=== PATIENT | male | born 1980 | race Caucasian/White ===

== ENCOUNTER 2023-07-16 15:04 | Inpatient (IN) | payer OTHER, SELFPAY ==
[2023-07-16 15:09] VITALS: BP 148/116; PULSE 114; RESP 22; TEMP 36.8; O2SAT 99; BMI 24.2
[2023-07-16 15:41] LABS: Hematocrit 53.9 % (42.0-54.0); Mean Corpuscular HGB Conc 33.4 g/dL (29.9-35.2); Mean Corpuscular Hemoglobin 30.9 pg (25.9-34.0); Mean Corpuscular Volume 92.5 fL (80.0-94.0); Mean Platelet Volume 10.5 fL (9.5-13.5); Platelet Count 523 10^3/uL (150-450); Red Blood Count 5.83 10^6/uL (4.70-6.10); Red Cell Distribution Width 12.7 % (11.0-15.0); White Blood Count 27.8 10^3/uL (4.0-11.0)
--- NOTE | 2023-07-16 15:42 | ED_ITS ---
HPI - Abdominal Pain General Chief Complaint: Abdominal Pain Stated Complaint: aBDOMINAL pAIN Time Seen by Provider: 07/16/23 15:13 Source: patient Mode of arrival: Wheelchair History of Present Illness HPI narrative: patient is a 42-year-old male who presents to the emergency department for two day history of nausea and vomiting associated with right mid abdominal pain. He states he has a history of gastritis but stopped taking his omeprazole and Zofran because it was a potential interaction with his psychiatric medications. He has not had any fevers, upper respiratory symptoms or diarrhea. He denies any recent antibiotics or travel. No sick contacts in the home. He has not had any urinary symptoms. No previous abdominal surgeries. Related Data Home Medications Medication Instructions Recorded Confirmed fluoxetine 40 mg capsule 60 mg PO DAILY 07/16/23 07/16/23 olanzapine 2.5 mg tablet 2.5 mg PO DAILY 07/16/23 07/16/23 omeprazole 20 mg capsule,delayed 20 mg PO DAILY 07/16/23 07/16/23 release Allergies Allergy/AdvReac Type Severity Reaction Status Date / Time No Known Drug Allergies Allergy Verified 07/16/23 15:14 Review of Systems ROS Constitutional Denies: fever or chills Cardiovascular Denies: chest pain Respiratory Denies: shortness of breath or cough Gastrointestinal Reports: abdominal pain, nausea and vomiting; Denies: diarrhea Genitourinary Denies: painful urination Musculoskeletal Denies: back pain Integumentary/Breast Denies: rash Neurological Denies: headache Hematologic/Lymphatic Denies: easy bruising Exam Narrative Exam Narrative: Gen.: Awake, alert, in no distress Head: Normocephalic, atraumatic ENT: Moist mucous membranes Respiratory: No respiratory distress, lungs clear bilaterally Cardio: Regular rate and rhythm Gastrointestinal: Abdomen is soft, nondistended and minimally tender in the right midabdomen; no guarding or rebound, no McBurney's point tenderness Extremities: Moves extremities equally Psych: Normal mood and affect Neuro: No focal neuro deficit Skin: Warm, dry, intact Constitutional Vital Signs, click to edit/add: Last Vital Signs Temp 98.3 F 07/16/23 15:09 Pulse 114 H 07/16/23 15:09 Resp 22 07/16/23 15:09 BP 148/116 H 07/16/23 15:09 Pulse Ox 99 07/16/23 15:09 O2 Del Method Room Air 07/16/23 15:09 Course Vital Signs Vital signs: Vital Signs Temperature 98.3 F 07/16/23 15:09 Pulse Rate 114 H 07/16/23 15:09 Respiratory Rate 22 07/16/23 15:09 Blood Pressure 148/116 H 07/16/23 15:09 Pulse Oximetry 99 07/16/23 15:09 Oxygen Delivery Method Room Air 07/16/23 15:09 Temperature 98.3 F 07/16/23 15:09 Pulse Rate 114 H 07/16/23 15:09 Respiratory Rate 22 07/16/23 15:09 Blood Pressure 148/116 H 07/16/23 15:09 Pulse Oximetry 99 07/16/23 15:09 Oxygen Delivery Method Room Air 07/16/23 15:09 MDM - Abdominal Pain MDM Narrative Medical decision making narrative: patient was given 2 L of IV fluids, lab studies show significantt leukocytosis, elevated lactic acid, acute kidney injury with creatinine 3.39 and elevated bilirubin at 1.7 with minimal elevation of alkaline phosphatase. Blood cultures were ordered, he was also sent for CT of the abdomen and pelvis without contrast as we could not inject IV contrast due to acute kidney injury. This CT shows the patient has suspected small bowel intussusception, I discussed this result with Dr. Cantu ([id number]) for general surgery in reviewed the patient's labs. He is willing to be a consult for the patient and feels comfortable managing his CT findings at this facility. I discussed the case with Dr. Rand ([id number]) who is accepting the admission for [facility]. Patient was reevaluated by attending physician prior to admission, he understands his CT findings and lab findings. He had no episodes of emesis in the Emergency Room. Stable at time of admission. Medical Records Attestation: I reviewed the patient's medical records. Lab Data Attestation: I reviewed the patient's lab results. Labs: Lab Results 07/16/23 Range/Units 15:34 WBC 27.8 H (4.0-11.0) 10^3/uL RBC 5.83 (4.70-6.10) 10^6/uL Hgb 18.0 (14.0-18.0) g/dL Hct 53.9 (42.0-54.0) % MCV 92.5 (80.0-94.0) fL MCH 30.9 (25.9-34.0) pg MCHC 33.4 (29.9-35.2) g/dL RDW 12.7 (11.0-15.0) % Plt Count 523 H (150-450) 10^3/uL MPV 10.5 (9.5-13.5) fL Seg Neuts % (Manual) 88.0 Lymphocytes % (Manual) 4.0 L (20.5-60.0) % Monocytes % (Manual) 8.0 (1.7-12.0) % Eosinophils % (Manual) 0.0 L (0.9-7.0) % Basophils % (Manual) 0.0 L (0.2-2.0) % Neutrophils # (Manual) 24.46 H (1.4-6.5) 10^3/uL Lymphocytes # (Manual) 1.11 L (1.20-3.80) 10^3/uL Monocytes # (Manual) 2.22 H (0.30-0.80) 10^3/uL Eosinophils # (Manual) 0.00 (0.00-0.70) 10^3/uL Basophils # (Manual) 0.00 (0.00-0.10) 10^3/uL Sodium 145 (136-145) mmol/L Potassium 4.4 (3.5-5.1) mmol/L Chloride 107 (98-107) mmol/L Carbon Dioxide 23.7 (21.0-32.0) mmol/L Anion Gap 18.7 BUN 49.0 H (7.0-18.0) mg/dL Creatinine 3.39 H (0.70-1.30) mg/dL Est GFR ( Amer) 24 L (>=60) Est GFR (Non-Af Amer) 20 L (>=60) BUN/Creatinine Ratio 14.5 Glucose 148 H (74-106) mg/dL Lactate 2.6 H* (0.4-2.0) mmol/L Calcium 12.3 H (8.5-10.1) mg/dL Total Bilirubin 1.7 H (0.2-1.0) mg/dL AST 25 (15-37) U/L ALT 28 (16-63) U/L Alkaline Phosphatase 121 H (46-116) U/L Total Protein 10.6 H (6.4-8.2) g/dL Albumin 5.8 H (3.4-5.0) g/dL Globulin 4.8 g/dL Albumin/Globulin Ratio 1.2 Lipase 53.0 L (73.0-393.0) U/L Imaging Data CT scan - abdomen: Attestation: I have reviewed the pertinent imaging results. Radiologist's impression: Procedure: CT abdomen pelvis wo con EXAMINATION: CT abdomen pelvis wo con, 07/16/2023 1:53 PM PDT HISTORY: Abdominal pain, vomiting COMPARISON: MRI abdomen 07/17/2022. CT abdomen and pelvis 04/01/2022. TECHNIQUE: CT scan of the abdomen and pelvis was performed without IV contrast. CT dose reduction technique was used, including Automated Exposure Control. FINDINGS: Lung: No significant finding. Liver: No significant finding. Gallbladder: No significant finding. Spleen: Granulomatous Pancreas: No significant finding. Adrenal glands: No significant finding. Kidneys, ureters and bladder: Simple right renal cyst. No renal/urinary tract calculi. Circumferential bladder wall thickening. Simple left renal cyst. Bowel: Normal appendix. No evidence of bowel obstruction. Distal jejunal versus proximal ileum intussusception measuring approximately 6 cm in length. No evidence of bowel obstruction. No definitive measurable lead point mass. No free fluid in the abdomen. No evidence of pneumoperitoneum. Peritoneum/retroperitoneum: As above. Lymph nodes: No significant finding. Vessels: No significant finding. Body wall: Tiny fat-containing umbilical hernia. Reproductive: No significant finding. Bones: No significant finding. IMPRESSION: Small bowel intussusception in the pelvis involving approximately a 6 cm segment of bowel. No evidence of bowel obstruction, free fluid or lead point mass. Bladder wall thickening, correlate for cystitis. Electronically authenticated by: PARUL MUIR Date: 07/16/2023 17:23 Discharge Plan Discharge Chief Complaint: Abdominal Pain Clinical Impression: Acute kidney injury, Nausea and vomiting, Abdominal pain, Intussusception Patient Disposition: Admitted As Inpatient Time of Disposition Decision: 17:41 Condition: Good
[2023-07-16] MEDS: PROMETHAZINE HCL 25 MG/ML VIAL 12.5 MG IV (15:54)
[2023-07-16] MEDS: 0.9 % SODIUM CHLORIDE 1,000 ML 999 ML IV (15:54)
[2023-07-16] MEDS: FAMOTIDINE/PF 20 MG/2 ML VIAL IV (15:54)
[2023-07-16 15:56] LABS: Alanine Aminotransferase 28 U/L (16-63); Albumin Globulin Ratio 1.2; Albumin Level 5.8 g/dL (3.4-5.0); Alkaline Phosphatase 121 U/L (46-116); Anion Gap 18.7; Aspartate Amino Transferase 25 U/L (15-37); BUN Creatinine Ratio 14.5; Bilirubin Total 1.7 mg/dL (0.2-1.0); Calcium 12.3 mg/dL (8.5-10.1); Carbon Dioxide 23.7 mmol/L (21.0-32.0); Chloride 107 mmol/L (98-107); Estimated GFR (African America 24 (>=60); Estimated GFR (Non-African Ame 20 (>=60); Globulin 4.8 g/dL; Glucose 148 mg/dL (74-106); Potassium 4.4 mmol/L (3.5-5.1); Sodium 145 mmol/L (136-145); Total Protein 10.6 g/dL (6.4-8.2)
[2023-07-16 16:02] LABS: Lymphocytes Absolute Manual 1.11 10^3/uL (1.20-3.80); Monocytes Absolute Manual 2.22 10^3/uL (0.30-0.80); Segmented Neut Absolute Manual 24.46 10^3/uL (1.4-6.5)
[2023-07-16 16:03] LABS: Lactate/Lactic Acid 2.6 mmol/L (0.4-2.0)
--- NOTE | 2023-07-16 16:14 | CT_ITS ---
[facility] [id number] Patient Name: GERALDINE RICCI MRN: [id number] date: 1980 Sex: M Assigned Patient Location: ER Current Patient Location: ER Accession/Order Number: [id number] Exam Date: 07/16/2023 16:53 Report Date: 07/16/2023 17:23 At the request of: JULIAN GALLAGHER Procedure: CT abdomen pelvis wo con EXAMINATION: CT abdomen pelvis wo con, 07/16/2023 1:53 PM PDT HISTORY: Abdominal pain, vomiting COMPARISON: MRI abdomen 07/17/2022. CT abdomen and pelvis 04/01/2022. TECHNIQUE: CT scan of the abdomen and pelvis was performed without IV contrast. CT dose reduction technique was used, including Automated Exposure Control. FINDINGS: Lung: No significant finding. Liver: No significant finding. Gallbladder: No significant finding. Spleen: Granulomatous Pancreas: No significant finding. Adrenal glands: No significant finding. Kidneys, ureters and bladder: Simple right renal cyst. No renal/urinary tract calculi. Circumferential bladder wall thickening. Simple left renal cyst. Bowel: Normal appendix. No evidence of bowel obstruction. Distal jejunal versus proximal ileum intussusception measuring approximately 6 cm in length. No evidence of bowel obstruction. No definitive measurable lead point mass. No free fluid in the abdomen. No evidence of pneumoperitoneum. Peritoneum/retroperitoneum: As above. Lymph nodes: No significant finding. Vessels: No significant finding. Body wall: Tiny fat-containing umbilical hernia. Reproductive: No significant finding. Bones: No significant finding. CT/CT abdomen pelvis wo con IMPRESSION: Small bowel intussusception in the pelvis involving approximately a 6 cm segment of bowel. No evidence of bowel obstruction, free fluid or lead point mass. Bladder wall thickening, correlate for cystitis. Electronically authenticated by: PARUL MUIR Date: 07/16/2023 17:23
[2023-07-16] MEDS: 0.9 % SODIUM CHLORIDE 1,000 ML 1000 ML IV (17:47)
[2023-07-16] MEDS: ONDANSETRON PF 4 MG/2 ML VIAL IV (18:15)
[2023-07-16 19:03] LABS: Lactate/Lactic Acid 1.4 mmol/L (0.4-2.0)
[2023-07-16] MEDS: LACTATED RINGER'S SOLUTION 1,000 ML 125 ML IV (20:58)
[2023-07-16 22:00] VITALS: BP 159/87; PULSE 76; RESP 18; TEMP 36.9; O2SAT 97
[2023-07-17] VITALS: BP 159/87; PULSE 76; RESP 18; TEMP 36.9; O2SAT 97; BMI 24.5
[2023-07-17] MEDS: ONDANSETRON PF 4 MG/2 ML VIAL IV (00:02)
[2023-07-17] MEDS: ACETAMINOPHEN 325 MG TABLET 650 MG PO (01:15)
[2023-07-17 02:04] LABS: Bilirubin Urine SMALL (NEGATIVE); Blood Urine NEGATIVE (NEGATIVE); Clarity Urine CLEAR (CLEAR); Color Urine YELLOW (YELLOW); Glucose Urine UA NEGATIVE (NEGATIVE); Ketones Urine TRACE mg/dL (NEGATIVE); Leukocyte Esterase Urine NEGATIVE (NEGATIVE); Nitrite Urine NEGATIVE (NEGATIVE); Protein Urine 30 mg/dL (NEG/TRACE); Specific Gravity Urine >=1.030 (1.005-1.025); Urobilinogen Urine 0.2 EU/dL (0.2-1.0)
[2023-07-17 02:05] LABS: Urine Microscopic Indicated YES
[2023-07-17 02:13] LABS: Bacteria Urine SMALL #/HPF (NONE SEEN); Crystals Seen? None Seen #/HPF (None Seen); Mucus Urine NONE SEEN (NONE SEEN); Squamous Epithelial Cell Urine RARE #/LPF (NONE/RARE)
[2023-07-17 02:14] LABS: Cast Seen? SEEN #/LPF (NONE SEEN); Hyaline Casts Urine MODERATE; Urine Culture Indicated YES; Waxy Casts Urine MODERATE
[2023-07-17 02:16] LABS: Amphetamine Screen Urine NEGATIVE (NEGATIVE); Barbiturates Screen Urine NEGATIVE (NEGATIVE); Benzodiazepines Screen Urine POSITIVE (NEGATIVE); Buprenorphine Screen Urine NEGATIVE (NEGATIVE); Cannabinoid Screen Urine POSITIVE (NEGATIVE); Cocaine Screen Urine NEGATIVE (NEGATIVE); Methadone Screen Urine NEGATIVE (NEGATIVE); Methamphetamines Screen Urine NEGATIVE (NEGATIVE); Opiate Screen Urine NEGATIVE (NEGATIVE); Oxycodone Screen Urine NEGATIVE (NEGATIVE); Phencyclidine Screen Urine NEGATIVE (NEGATIVE); Tricyclic Antidepressant Urine NEGATIVE (NEGATIVE)
[2023-07-17] MEDS: LACTATED RINGER'S SOLUTION 1,000 ML 125 ML IV (04:56)
[2023-07-17 05:04] VITALS: BP 178/112
[2023-07-17] MEDS: HYDRALAZINE HCL 20 MG/ML VIAL 10 MG IVP (05:04)
[2023-07-17 05:08] VITALS: BP 178/108; PULSE 59; RESP 18; TEMP 36.3; O2SAT 98
[2023-07-17 05:39] LABS: Basophils Absolute Auto 0.1 10^3/uL (0.0-0.1); Basophils Percent Auto 0.2 % (0.2-2.0); Hematocrit 47.2 % (42.0-54.0); Hemoglobin 14.9 g/dL (14.0-18.0); Immature Granulocytes Abs Auto 0.17 10^3/uL (0.00-0.03); Immature Granulocytes Pct Auto 0.8 % (0.0-0.5); Lymphocytes Absolute Auto 1.6 10^3/uL (1.2-3.8); Lymphocytes Percent Auto 7.3 % (20.5-60.0); Mean Corpuscular HGB Conc 31.6 g/dL (29.9-35.2); Mean Corpuscular Volume 98.1 fL (80.0-94.0); Mean Platelet Volume 11.2 fL (9.5-13.5); Monocytes Absolute Auto 1.9 10^3/uL (0.3-0.8); Monocytes Percent Auto 8.5 % (1.7-12.0); Neutrophils Absolute Auto 18.3 10^3/uL (1.4-6.5); Neutrophils Percent Auto 83.2 % (43.0-75.0); Platelet Count 348 10^3/uL (150-450); Red Blood Count 4.81 10^6/uL (4.70-6.10); Red Cell Distribution Width 12.7 % (11.0-15.0)
[2023-07-17 06:07] LABS: Alanine Aminotransferase 24 U/L (16-63); Albumin Globulin Ratio 1.1; Albumin Level 4.2 g/dL (3.4-5.0); Alkaline Phosphatase 85 U/L (46-116); Anion Gap 18.6; Aspartate Amino Transferase 24 U/L (15-37); Bilirubin Total 1.6 mg/dL (0.2-1.0); Calcium 9.4 mg/dL (8.5-10.1); Carbon Dioxide 21.4 mmol/L (21.0-32.0); Chloride 111 mmol/L (98-107); Estimated GFR (African America 43 (>=60); Estimated GFR (Non-African Ame 36 (>=60); Globulin 3.7 g/dL; Glucose 110 mg/dL (74-106); Sodium 147 mmol/L (136-145); Total Protein 7.9 g/dL (6.4-8.2)
[2023-07-17] MEDS: SODIUM CHLORIDE 0.45 % 1,000 ML 100 ML IV ×2 (08:56→18:52)
[2023-07-17] MEDS: AMLODIPINE BESYLATE 5 MG TABLET 10 MG PO (08:56)
[2023-07-17] MEDS: PANTOPRAZOLE SODIUM 40 MG VIAL IV (08:56)
--- NOTE | 2023-07-17 11:05 | P.HP_ITS ---
H&P: HPI History of Present Illness Chief complaint: Intractable nausea/vomiting Narrative: 42 y o male presents with sudden onset of nausea,vomiting along with mid epigastric abdominal discomfort x 3 days. Nausea/vomiting was so severe that he could not eat/drink anything for three days. He denies fever, chills, urinary complaints, cough, SOB. He reports he is not moving his bowels like usual and that he feels bloated and that he can't pass gas. His last BM was yesterday before coming to ED. He feels better than last night and has not thrown up since admission. He was asking to eat something. Review of Systems ROS Status of ROS 10 or more systems reviewed and unremarkable except as noted in history and below [facility] Medical History Family History Father Family history of CHF (congestive heart failure) Family history of hypertension Family history of myocardial infarction Family history of stroke Grandfather Family history of cancer Family history of myocardial infarction Family history of stroke Uncle Family history of cancer Grandmother Family history of diabetes mellitus Social History Within the past year, how often did you have a drink containing alcohol: never Score interpretation: A score less than 4 is consistent with normal alcohol consumption. Smoking status: Current every day smoker Do you use any of these nicotine containing products: vaping products Non-prescribed substance use: cannabis (any form) Meds Home Medications and Allergies Home Medications Medication Instructions Recorded Confirmed Type fluoxetine 40 mg capsule 60 mg PO BEDTIME 07/16/23 07/17/23 History olanzapine 2.5 mg tablet 2.5 mg PO BEDTIME 07/16/23 07/17/23 History omeprazole 20 mg capsule,delayed 20 mg PO DAILY 07/16/23 07/17/23 History release Allergies Allergy/AdvReac Type Severity Reaction Status Date / Time No Known Drug Allergies Allergy Verified 07/17/23 06:23 Exam Constitutional Vital Signs, click to edit/add: Last Vital Signs Temp 97.4 F L 07/17/23 05:08 Pulse 59 L 07/17/23 05:08 Resp 18 07/17/23 05:08 BP 178/108 H 07/17/23 05:08 Pulse Ox 98 07/17/23 05:08 O2 Del Method Room Air 07/17/23 05:08 Documenting provider has reviewed patient's vital signs: yes Common normals: no apparent distress and oriented x3 General appearance: cooperative and lethargic HENMT Common normals: normocephalic and head/scalp atraumatic Head and scalp: normocephalic and atraumatic Eye Common normals: conjunctivae normal and no scleral icterus Conjunctiva: conjunctiva(e) normal Respiratory Common normals: normal respiratory effort and clear to auscultation bilaterally Effort & inspection: able to speak in complete sentences Auscultation: clear to auscultation bilaterally Cardio Common normals: regular rate, S1 normal heart sound and S2 normal heart sound Rate: regular rate Heart sounds: S1 normal and S2 normal GI Common normals: Normal to inspection, nondistended, normoactive bowel sounds present, soft to palpation, non-tender and no hepatosplenomegaly Palpation: soft and no hepatosplenomegaly Extremity Common normals: no clubbing, cyanosis or edema Neuro Common normals: oriented x3, moves all extremities and no focal motor deficits Psych Common normals: mental status grossly normal, denies hallucinations, denies homicidal ideation and denies suicidal ideation Results Labs Labs: Short CBC 07/16/23 07/17/23 Range/Units 15:34 04:03 WBC 27.8 H 22.0 H (4.0-11.0) 10^3/uL Hgb 18.0 14.9 (14.0-18.0) g/dL Hct 53.9 47.2 (42.0-54.0) % Plt Count 523 H 348 (150-450) 10^3/uL BMP 07/16/23 07/17/23 15:34 04:03 Sodium 145 147 H Potassium 4.4 4.0 Chloride 107 111 H Carbon Dioxide 23.7 21.4 BUN 49.0 H 51.0 H Creatinine 3.39 H 2.04 H Glucose 148 H 110 H Calcium 12.3 H 9.4 Liver Function 07/16/23 07/17/23 Range/Units 15:34 04:03 Total Bilirubin 1.7 H 1.6 H (0.2-1.0) mg/dL AST 25 24 (15-37) U/L ALT 28 24 (16-63) U/L Alkaline Phosphatase 121 H 85 (46-116) U/L Albumin 5.8 H 4.2 (3.4-5.0) g/dL Urine 07/16/23 Range/Units 23:00 Urine Color Yellow (YELLOW) Urine Clarity Clear (CLEAR) Urine pH 5.0 (5.0-9.0) Ur Specific [place] >=1.030 A (1.005-1.025) Urine Protein 30 A (NEG/TRACE) mg/dL Urine Glucose (UA) Negative (NEGATIVE) mg/dL Assessment and Plan Assessment and Plan (1) Acute kidney injury: Assessment and Plan: likely pre renal due to intractable nausea/vomiting. Normal kidney fucntion at baseline Improving with IV hydration. Monitor Cr, UO closely. Switch fluids to 1/2 NS as patient is now hypernatremic due to judicious IV hydration (2) Nausea and vomiting: Assessment and Plan: Intractable nausea and vomiting x 3 days. Improved. Advance diet to clear liquid. Qualifiers: Vomiting type: unspecified Qualified Code(s): R11.2 - Nausea with vomiting, unspecified (3) Leukocytosis: Assessment and Plan: likeky reactive. No source of infection identified. Trending down. Monitor. (4) Abdominal pain: Assessment and Plan: Mid epigastric/umbilical pain No peritoneal signs. CT Abd/pelvis shows possible intussusception. Surgery on board Qualifiers: Abdominal location: periumbilical Qualified Code(s): R10.33 - Periumbilical pain (5) Intussusception: Assessment and Plan: CT Abd/pelvis shows possible intussusception Surg on board. Conservative measures. Advance diet as tolerated. (6) Lactic acid acidosis: Assessment and Plan: due to hypovolemia. Resolved with hydration (7) Benign essential HTN: Assessment and Plan: Reports his BP has been high as outpatient. Poorly controlled and likely worse than usual due to current illness. Added amlodipine. Hydralazine as needed (8) Anxiety: Assessment and Plan: C/w home meds. Well controlled (9) Bipolar 1 disorder: Assessment and Plan: Stable mood. No need to make changes.
--- NOTE | 2023-07-17 11:40 | CM.NOTE ---
Rounds made with Dr. Rand, awaiting surgical consult for further recommendations.
--- NOTE | 2023-07-17 13:56 | P.GSCN_ITS ---
History of Present Illness Consult details Consult date: 07/17/23 Narrative: Patient is a 42-year-old male who presented to the emergency department yesterday with a three-day history of abdominal pain nausea and vomiting. He apparently had had some similar prior episodes. He was noted to be markedly dehydrated with a leukocytosis. CT of the abdomen and pelvis revealed an apparent short segment of possible small bowel intussusception. There were no signs of small bowel obstruction and I reviewed the images myself as well as with the attending radiologist. No other specific abnormalities were identified. The patient was subsequently admitted. Today he reports feeling better and has been tolerating clear liquids. Review of Systems ROS Status of ROS 10 or more systems reviewed and unremarkable except as noted in history and below [facility] Medical History Family History Father Family history of CHF (congestive heart failure) Family history of hypertension Family history of myocardial infarction Family history of stroke Grandfather Family history of cancer Family history of myocardial infarction Family history of stroke Uncle Family history of cancer Grandmother Family history of diabetes mellitus Social History Within the past year, how often did you have a drink containing alcohol: never Score interpretation: A score less than 4 is consistent with normal alcohol consumption. Smoking status: Current every day smoker Do you use any of these nicotine containing products: vaping products Non-prescribed substance use: cannabis (any form) Meds Home Medications and Allergies Home Medications Medication Instructions Recorded Confirmed Type fluoxetine 40 mg capsule 60 mg PO BEDTIME 07/16/23 07/17/23 History olanzapine 2.5 mg tablet 2.5 mg PO BEDTIME 07/16/23 07/17/23 History omeprazole 20 mg capsule,delayed 20 mg PO DAILY 07/16/23 07/17/23 History release Allergies Allergy/AdvReac Type Severity Reaction Status Date / Time No Known Drug Allergies Allergy Verified 07/17/23 06:23 Exam Constitutional Vital Signs, click to edit/add: Last Vital Signs Temp 97.4 F L 07/17/23 05:08 Pulse 59 L 07/17/23 05:08 Resp 18 07/17/23 05:08 BP 178/108 H 07/17/23 05:08 Pulse Ox 98 07/17/23 05:08 O2 Del Method Room Air 07/17/23 05:08 Common normals: no apparent distress and average body habitus [facility] Common normals: normocephalic Chest Common normals: inspection of chest normal GI Common normals: soft to palpation, non-tender and no masses Inspection: normal to inspection Neuro Common normals: oriented x3 Psych Common normals: mental status grossly normal Results Labs Labs: Abnormal lab results 07/16/23 07/16/23 07/17/23 Range/Units 15:34 23:00 04:03 WBC 27.8 H 22.0 H (4.0-11.0) 10^3/uL MCV 98.1 H (80.0-94.0) fL Plt Count 523 H (150-450) 10^3/uL Neut % (Auto) 83.2 H (43.0-75.0) % Lymph % (Auto) 7.3 L (20.5-60.0) % Eos % (Auto) 0.0 L (0.9-7.0) % Neut # (Auto) 18.3 H (1.4-6.5) 10^3/uL [place] # (Auto) 1.9 H (0.3-0.8) 10^3/uL Abs Immat Gran (auto) 0.17 H (0.00-0.03) 10^3/uL Lymphocytes % (Manual) 4.0 L (20.5-60.0) % Eosinophils % (Manual) 0.0 L (0.9-7.0) % Basophils % (Manual) 0.0 L (0.2-2.0) % Imm/Tot Granulo (auto) 0.8 H (0.0-0.5) % Neutrophils # (Manual) 24.46 H (1.4-6.5) 10^3/uL Lymphocytes # (Manual) 1.11 L (1.20-3.80) 10^3/uL Monocytes # (Manual) 2.22 H (0.30-0.80) 10^3/uL Sodium 147 H (136-145) mmol/L Chloride 111 H (98-107) mmol/L BUN 49.0 H 51.0 H (7.0-18.0) mg/dL Creatinine 3.39 H 2.04 H (0.70-1.30) mg/dL Est GFR ( Amer) 24 L 43 L (>=60) Est GFR (Non-Af Amer) 20 L 36 L (>=60) Glucose 148 H 110 H (74-106) mg/dL Lactate 2.6 H* (0.4-2.0) mmol/L Calcium 12.3 H (8.5-10.1) mg/dL Total Bilirubin 1.7 H 1.6 H (0.2-1.0) mg/dL Alkaline Phosphatase 121 H (46-116) U/L Total Protein 10.6 H (6.4-8.2) g/dL Albumin 5.8 H (3.4-5.0) g/dL Lipase 53.0 L (73.0-393.0) U/L Ur Specific [place] >=1.030 A (1.005-1.025) Urine Protein 30 A (NEG/TRACE) mg/dL Urine Ketones Trace A (NEGATIVE) mg/dL Urine Bilirubin Small A (NEGATIVE) Urine RBC 2-5 A (0-2) #/HPF Urine WBC 2-5 A (NONE SEEN) #/HPF Urine Bacteria Small A (NONE SEEN) #/HPF Urine Casts Seen A (NONE SEEN) #/LPF U Benzodiazepines Scrn Positive A (NEGATIVE) U Cannabinoids Screen Positive A (NEGATIVE) Diabetes panel 07/16/23 07/17/23 Range/Units 15:34 04:03 Sodium 145 147 H (136-145) mmol/L Potassium 4.4 4.0 (3.5-5.1) mmol/L Chloride 107 111 H (98-107) mmol/L Carbon Dioxide 23.7 21.4 (21.0-32.0) mmol/L BUN 49.0 H 51.0 H (7.0-18.0) mg/dL Creatinine 3.39 H 2.04 H (0.70-1.30) mg/dL Glucose 148 H 110 H (74-106) mg/dL Calcium 12.3 H 9.4 (8.5-10.1) mg/dL AST 25 24 (15-37) U/L ALT 28 24 (16-63) U/L Alkaline Phosphatase 121 H 85 (46-116) U/L Total Protein 10.6 H 7.9 (6.4-8.2) g/dL Albumin 5.8 H 4.2 (3.4-5.0) g/dL Calcium panel 07/16/23 07/17/23 Range/Units 15:34 04:03 Calcium 12.3 H 9.4 (8.5-10.1) mg/dL Albumin 5.8 H 4.2 (3.4-5.0) g/dL Pituitary panel 07/16/23 07/17/23 Range/Units 15:34 04:03 Sodium 145 147 H (136-145) mmol/L Potassium 4.4 4.0 (3.5-5.1) mmol/L Chloride 107 111 H (98-107) mmol/L Carbon Dioxide 23.7 21.4 (21.0-32.0) mmol/L BUN 49.0 H 51.0 H (7.0-18.0) mg/dL Creatinine 3.39 H 2.04 H (0.70-1.30) mg/dL Glucose 148 H 110 H (74-106) mg/dL Calcium 12.3 H 9.4 (8.5-10.1) mg/dL Adrenal panel 07/16/23 07/17/23 Range/Units 15:34 04:03 Sodium 145 147 H (136-145) mmol/L Potassium 4.4 4.0 (3.5-5.1) mmol/L Chloride 107 111 H (98-107) mmol/L Carbon Dioxide 23.7 21.4 (21.0-32.0) mmol/L BUN 49.0 H 51.0 H (7.0-18.0) mg/dL Creatinine 3.39 H 2.04 H (0.70-1.30) mg/dL Glucose 148 H 110 H (74-106) mg/dL Calcium 12.3 H 9.4 (8.5-10.1) mg/dL Total Bilirubin 1.7 H 1.6 H (0.2-1.0) mg/dL AST 25 24 (15-37) U/L ALT 28 24 (16-63) U/L Alkaline Phosphatase 121 H 85 (46-116) U/L Total Protein 10.6 H 7.9 (6.4-8.2) g/dL Albumin 5.8 H 4.2 (3.4-5.0) g/dL All other labs normal. Assessment and Plan Assessment and Plan (1) Acute kidney injury: (2) Nausea and vomiting: Qualifiers: Vomiting type: unspecified Qualified Code(s): R11.2 - Nausea with vomiting, unspecified (3) Leukocytosis: (4) Abdominal pain: Assessment and Plan: Based on patient's current clinical status as well as CT findings I feel the area of possible small bowel intussusception is likely an incidental finding and will be transient in nature as the patient already is clinically improved and there were no CT findings consistent with a mass or small bowel obstruction. From a surgical standpoint patient may gradually increase his diet as tolerated Qualifiers: Abdominal location: periumbilical Qualified Code(s): R10.33 - Periumbilical pain (5) Intussusception: (6) Lactic acid acidosis: (7) Benign essential HTN: (8) Anxiety: (9) Bipolar 1 disorder:
[2023-07-17 14:30] VITALS: BP 163/99; PULSE 80; RESP 18; TEMP 36.8; O2SAT 97
[2023-07-17] MEDS: DICYCLOMINE HCL 10 MG CAPSULE PO ×2 (15:53→21:11)
[2023-07-17 17:13] VITALS: BP 179/96; PULSE 65; RESP 18; TEMP 36.8; O2SAT 97
[2023-07-17 19:43] VITALS: BP 130/80; PULSE 62; RESP 18; TEMP 36.8; O2SAT 95
[2023-07-17] MEDS: OLANZapine 5 MG TABLET 2.5 MG PO (21:10)
[2023-07-17] MEDS: FLUOXETINE HCL 20 MG CAPSULE 60 MG PO (21:11)
[2023-07-18 04:38] VITALS: BP 141/86; PULSE 55; RESP 16; TEMP 36.8; O2SAT 97
[2023-07-18] MEDS: ONDANSETRON PF 4 MG/2 ML VIAL IV ×2 (04:50→11:53)
[2023-07-18] MEDS: SODIUM CHLORIDE 0.45 % 1,000 ML 100 ML IV (04:51)
[2023-07-18 04:53] LABS: Basophils Absolute Auto 0.1 10^3/uL (0.0-0.1); Basophils Percent Auto 0.4 % (0.2-2.0); Eosinophils Absolute Auto 0.1 10^3/uL (0.0-0.7); Eosinophils Percent Auto 0.5 % (0.9-7.0); Hematocrit 46.6 % (42.0-54.0); Hemoglobin 14.7 g/dL (14.0-18.0); Immature Granulocytes Abs Auto 0.07 10^3/uL (0.00-0.03); Immature Granulocytes Pct Auto 0.6 % (0.0-0.5); Lymphocytes Absolute Auto 1.5 10^3/uL (1.2-3.8); Lymphocytes Percent Auto 11.5 % (20.5-60.0); Mean Corpuscular HGB Conc 31.5 g/dL (29.9-35.2); Mean Corpuscular Hemoglobin 30.5 pg (25.9-34.0); Mean Corpuscular Volume 96.7 fL (80.0-94.0); Mean Platelet Volume 10.6 fL (9.5-13.5); Platelet Count 324 10^3/uL (150-450); Red Blood Count 4.82 10^6/uL (4.70-6.10); Red Cell Distribution Width 12.1 % (11.0-15.0); White Blood Count 12.7 10^3/uL (4.0-11.0)
[2023-07-18 05:07] LABS: Alanine Aminotransferase 29 U/L (16-63); Albumin Globulin Ratio 1.1; Albumin Level 3.9 g/dL (3.4-5.0); Alkaline Phosphatase 81 U/L (46-116); Anion Gap 11.3; Aspartate Amino Transferase 24 U/L (15-37); BUN Creatinine Ratio 22.9; Bilirubin Total 2.4 mg/dL (0.2-1.0); Carbon Dioxide 29.6 mmol/L (21.0-32.0); Chloride 107 mmol/L (98-107); Estimated GFR (African America >60 (>=60); Estimated GFR (Non-African Ame >60 (>=60); Globulin 3.5 g/dL; Glucose 98 mg/dL (74-106); Potassium 3.9 mmol/L (3.5-5.1); Sodium 144 mmol/L (136-145); Total Protein 7.4 g/dL (6.4-8.2)
[2023-07-18] MEDS: DICYCLOMINE HCL 10 MG CAPSULE PO (05:40)
[2023-07-18] MEDS: AMLODIPINE BESYLATE 5 MG TABLET 10 MG PO (09:16)
[2023-07-18] MEDS: PANTOPRAZOLE SODIUM 40 MG VIAL IV (09:18)
--- NOTE | 2023-07-18 11:12 | P.GSPN_ITS ---
Progress Note: A&P Assessment and Plan (1) Acute kidney injury: (2) Nausea and vomiting: Assessment and Plan: At this time patient is stable from a surgical standpoint. He may be discharged per the discretion of the admitting physician. Qualifiers: Vomiting type: unspecified Qualified Code(s): R11.2 - Nausea with vomiting, unspecified (3) Leukocytosis: (4) Abdominal pain: Qualifiers: Abdominal location: periumbilical Qualified Code(s): R10.33 - Per iumbilical pain (5) Intussusception: (6) Lactic acid acidosis: (7) Benign essential HTN: (8) Anxiety: (9) Bipolar 1 disorder: Subjective Subjective Interval history: Patient feels better today tolerating a regular diet. Reports minimal pain. No nausea or vomiting. Exam Narrative Exam Narrative: abdomen is soft and nontender WBC 12 Constitutional Vital Signs, click to edit/add: Last Vital Signs Temp 98.3 F 07/18/23 04:38 Pulse 55 L 07/18/23 04:38 Resp 16 07/18/23 04:38 BP 141/86 07/18/23 04:38 Pulse Ox 97 07/18/23 04:38 O2 Del Method Room Air 07/18/23 04:38
--- NOTE | 2023-07-18 11:38 | CM.NOTE ---
Rounds made with ju Park to discharge to home. No discharge needs identified.
--- NOTE | 2023-07-18 12:25 | P.IMPN_ITS ---
Progress Note: A&P Assessment and Plan (1) Acute kidney injury: (2) Nausea and vomiting: Qualifiers: Vomiting type: unspecified Qualified Code(s): R11.2 - Nausea with vomiting, unspecified (3) Leukocytosis: (4) Abdominal pain: Qualifiers: Abdominal location: periumbilical Qualified Code(s): R10.33 - Periumbilical pain (5) Intussusception: (6) Lactic acid acidosis: (7) Benign essential HTN: (8) Anxiety: (9) Bipolar 1 disorder: Exam Constitutional Vital Signs, click to edit/add: Last Vital Signs Temp 98.3 F 07/18/23 04:38 Pulse 55 L 07/18/23 04:38 Resp 16 07/18/23 04:38 BP 141/86 07/18/23 04:38 Pulse Ox 97 07/18/23 04:38 O2 Del Method Room Air 07/18/23 04:38 Internal Medicine - PN: Obj Da Labs Labs: Laboratory Results - last 24 hr 07/18/23 04:04 WBC 12.7 H RBC 4.82 Hgb 14.7 Hct 46.6 MCV 96.7 H MCH 30.5 MCHC 31.5 RDW 12.1 Plt Count 324 MPV 10.6 Neut % (Auto) 79.0 H Lymph % (Auto) 11.5 L [place] % (Auto) 8.0 Eos % (Auto) 0.5 L Baso % (Auto) 0.4 Neut # (Auto) 10.0 H Lymph # (Auto) 1.5 [place] # (Auto) 1.0 H Eos # (Auto) 0.1 Baso # (Auto) 0.1 Abs Immat Gran (auto) 0.07 H Imm/Tot Granulo (auto) 0.6 H Sodium 144 Potassium 3.9 Chloride 107 Carbon Dioxide 29.6 Anion Gap 11.3 BUN 25.0 H Creatinine 1.09 Est GFR ( Amer) >60 Est GFR (Non-Af Amer) >60 BUN/Creatinine Ratio 22.9 Glucose 98 Calcium 9.0 Total Bilirubin 2.4 H AST 24 ALT 29 Alkaline Phosphatase 81 Total Protein 7.4 Albumin 3.9 Globulin 3.5 Albumin/Globulin Ratio 1.1
--- NOTE | 2023-07-18 12:26 | P.DS_ITS ---
DS: Providers Provider Date of admission: 07/16/23 20:18 Primary care physician: JEOVANY DUNCAN APRN-KAYLA Consults: 07/16/23 18:51 Consult to General Surgeon Routine Consulting Provider: Donte Cantu Reason for consultation: intussusception Attending physician on discharge: Shaikh Keyona Discharging clinician: Shaikh Keyona Anticipated date of discharge: 07/18/23 DS: Diagnosis Discharge Diagnosis (1) Acute kidney injury: Assessment and plan: Resoled. Cr is now back to baseline (2) Nausea and vomiting: Assessment and plan: Diet advanced to regular. Tolerating it. Ok to d/c home. Qualifiers: Vomiting type: unspecified Qualified Code(s): R11.2 - Nausea with vomiting, unspecified (3) Leukocytosis: Assessment and plan: More or less normal now. Likely reactive. No need for abx (4) Abdominal pain: Assessment and plan: Resolved. Qualifiers: Abdominal location: periumbilical Qualified Code(s): R10.33 - Periumbilical pain (5) Intussusception: Assessment and plan: Likely incidental finding. Conservative care. Outpatient f/u (6) Lactic acid acidosis: Assessment and plan: Resolved. (7) Benign essential HTN: Assessment and plan: New diagnosis. Will add amlodipine to his regimen. Will need to f/u with PCP (8) Anxiety: Assessment and plan: c/w home meds. (9) Bipolar 1 disorder: Assessment and plan: C/w home meds DS: Summary Hospital Course Hospital Course: 42 y o admitted for intractable nausea/vomiting x 3 days resulting in leukocytosis, MACKENZIE with Cr > 3 on admission and incidental finding of Intussusception on CT Abd/pelvis. Patient received IV fluids for MACKENZIE/dehydration with improvement in his renal function. His nausea/vomiting improved with as needed Zofran and his diet was gradually advanced to regular which he tolerated w/o any GI symptoms. Patient's leukocytosis also resolved. No abx administered as no source identified and was presumably reactive and due to dehydration. Patient noted to have elevated BP which he admitted that he has been told he has HTN on a few occasions and was started on amlodipine for it with improvement. He was asked to f/u with PCP for continued management of his HTN. Stable for d/c. Will prescribe zofran as needed for 3 days. Patient educated on worrisome signs and symptoms and instructed to come to ED if he develops those. Status at Discharge Functional status at discharge: independent ambulation Overall status at discharge: patient is back to baseline Time Spent with Patient Time attestation: Total time spent providing and/or coordinating discharge services: Time spent: greater than 30 minutes Exam Constitutional Vital Signs, click to edit/add: Last Vital Signs Temp 98.3 F 07/18/23 04:38 Pulse 55 L 07/18/23 04:38 Resp 16 07/18/23 04:38 BP 141/86 07/18/23 04:38 Pulse Ox 97 07/18/23 04:38 O2 Del Method Room Air 07/18/23 04:38 Documenting provider has reviewed patient's vital signs: yes Common normals: no apparent distress and oriented x3 General appearance: cooperative HENMT Common normals: normocephalic and head/scalp atraumatic Head and scalp: normocephalic and atraumatic Eye Common normals: conjunctivae normal and no scleral icterus Conjunctiva: conjunctiva(e) normal Respiratory Common normals: normal respiratory effort and clear to auscultation bilaterally Effort & inspection: able to speak in complete sentences Auscultation: clear to auscultation bilaterally Cardio Common normals: regular rate, S1 normal heart sound and S2 normal heart sound Rate: regular rate Heart sounds: S1 normal and S2 normal GI Common normals: Normal to inspection, nondistended, normoactive bowel sounds present, soft to palpation, non-tender and no hepatosplenomegaly Palpation: soft and no hepatosplenomegaly Extremity Common normals: no clubbing, cyanosis or edema Neuro Common normals: oriented x3, moves all extremities and no focal motor deficits Psych Common normals: mental status grossly normal, denies hallucinations, denies homicidal ideation and denies suicidal ideation DS: Data Data Completed and Pending Labs on day of discharge: Labs from last 24 hours 07/18/23 04:04 WBC 12.7 H RBC 4.82 Hgb 14.7 Hct 46.6 MCV 96.7 H MCH 30.5 MCHC 31.5 RDW 12.1 Plt Count 324 MPV 10.6 Neut % (Auto) 79.0 H Lymph % (Auto) 11.5 L [place] % (Auto) 8.0 Eos % (Auto) 0.5 L Baso % (Auto) 0.4 Neut # (Auto) 10.0 H Lymph # (Auto) 1.5 [place] # (Auto) 1.0 H Eos # (Auto) 0.1 Baso # (Auto) 0.1 Abs Immat Gran (auto) 0.07 H Imm/Tot Granulo (auto) 0.6 H Sodium 144 Potassium 3.9 Chloride 107 Carbon Dioxide 29.6 Anion Gap 11.3 BUN 25.0 H Creatinine 1.09 Est GFR ( Amer) >60 Est GFR (Non-Af Amer) >60 BUN/Creatinine Ratio 22.9 Glucose 98 Calcium 9.0 Total Bilirubin 2.4 H AST 24 ALT 29 Alkaline Phosphatase 81 Total Protein 7.4 Albumin 3.9 Globulin 3.5 Albumin/Globulin Ratio 1.1 Discharge Plan Discharge Disposition: Home, Self-Care Condition: Good Discharge Medications: New ondansetron HCl 4 mg tablet 4 mg PO Q8H PRN (Reason: nausea and vomiting) 3 Days Qty: 7 0RF amlodipine 10 mg tablet 10 mg PO DAILY Qty: 30 0RF Continued fluoxetine 40 mg capsule 60 mg PO BEDTIME olanzapine 2.5 mg tablet 2.5 mg PO BEDTIME omeprazole 20 mg capsule,delayed release(DR/EC) 20 mg PO DAILY Activity: increase activity as tolerated Diet: advance to your usual diet Forms: Portal Instructions Follow Up Appointments: Follow up appt. with Jeovany Duncan on @ 4:45pm Office #: [phone]
--- NOTE | 2023-07-21 16:12 | CM.DCFOLLOWU ---
Person spoke with: Jitendra How are you feeling? Not any better- going to f/u appt right now How is your pain? Abdominal pain Did you understand your discharge instructions? Yes Do you have any questions about your discharge instructions? No Were you given any prescriptions at discharge? Yes Were you able to get your prescriptions filled? Yes Do you understand how to take your medications as ordered? Yes Do you have any questions about your follow up appointment and do you plan to keep your follow up appointment? Today Is there anything else that you would like to discuss? No Questions/Comments/Concerns/Other:
== END 2023-07-18 13:05 | disposition home or self-care (01) | DRG 469 ==
LOC: ER 20:28 → MS 20:30
PROVIDERS: Physician Assistant; Admitting Provider Internal Medicine; Emergency Provider Emergency Medicine; PCP Nurse Practitioner Primary Care; Visit Provider Internal Medicine
DX: N17.9 Acute kidney failure, unspecified (principal); R11.2 Nausea with vomiting, unspecified; R10.33 Periumbilical pain; D72.829 Elevated white blood cell count, unspecified; I10 Essential (primary) hypertension; F41.9 Anxiety disorder, unspecified; F31.9 Bipolar disorder, unspecified; E87.20 Acidosis, unspecified; K56.1 Intussusception; F12.90 Cannabis use, unspecified, uncomplicated; F17.210 Nicotine dependence, cigarettes, uncomplicated; Z79.899 Other long term (current) drug therapy
CPT/HCPCS: 36415; 74176; 80053; 80307; 81001; 83605; 83690; 85025; 85027; 87040; 87086; 96361; 96374; 96375; 96376; 99285

== ENCOUNTER 2023-07-21 17:16 | Emergency (ER) | payer OTHER, SELFPAY ==
[2023-07-21 17:20] VITALS: BP 158/110; PULSE 97; RESP 20; TEMP 37.7; O2SAT 98; BMI 23.7
--- NOTE | 2023-07-21 17:25 | ED.GENADUL1 ---
HPI - General Adult General Chief complaint: Abdominal Pain Stated complaint: DR DAKOTA BOGGS CT SCAN-ABDOMIN Time Seen by Provider: 07/21/23 17:23 Source: patient Mode of arrival: walk-in History of Present Illness HPI narrative: Patient is a 42-year-old male who is presenting from nurse practitioner PCP office for reevaluation of abdominal intussusception. Patient was just here on July 16 secondary to abdominal pain. Patient was admitted to the hospital and was here for 2 nights in the hospital and saw . Patient states his pain was slightly better but never completely relieved when he was discharged a few days ago. Patient's is at bedside. Patient has never had abdominal surgery before. Patient is passing gas/flatulence today. Patient has only had a few sips of coke today, he has not eaten or drank anything since yesterday. Patient has no fever or chills. No headache. No chest pain or shortness of breath. Patient has periumbilical pain, no testicular pain. No other acute complaints. . All systems are negative except as noted/marked. All systems reviewed and otherwise negative. . Nurses note and vital signs reviewed and patient is not hypoxic. General: The patient appears well and in no apparent distress. Patient is resting uncomfortably on cart. Patient is not toxic, lethargic, or listless Skin: Warm, dry, no pallor noted. There is no rash noted. No petechiae, purpura. Head: Normocephalic, atraumatic Eye: Normal conjunctiva, no drainage, EOMI. PERRL Ears, Nose, Mouth, and Throat: oral mucosa is moist. Nares patent. Mouth without vesicles. Poor dentition, no secondary signs of periapical abscess, ANUG, or gingivitis. Cardiovascular: Regular Rate and Rhythm, no murmur, gallop, rub Respiratory: Patient is in no distress, no accessory muscle use, lungs are clear to auscultation, no wheezing, rales or rhonchi Back: non-tender, no CVA tenderness bilaterally to percussion. No CT LS midline pain GI: soft, Moderate periumbilical tenderness to palpation, no peritoneal signs,no tenderness to palpation, no masses appreciated. No rebound, Mild guarding, NO rigidity noted. No flank pain bilateral, No distention. Mild bilateral flank pain, no CVA tenderness bilateral. Patient has active bowel sounds ?4. Musculoskeletal: Patient has full range of motion of all of the extremities, no motor, sensory, or focal neurological deficits Neurological: A&O x3, normal speech Psychiatric: Cooperative Related Data Home Medications Medication Instructions Recorded Confirmed fluoxetine 40 mg capsule 60 mg PO BEDTIME 07/16/23 07/17/23 olanzapine 2.5 mg tablet 2.5 mg PO BEDTIME 07/16/23 07/17/23 omeprazole 20 mg capsule,delayed 20 mg PO DAILY 07/16/23 07/17/23 release Previous Rx's Medication Instructions Recorded amlodipine 10 mg tablet 10 mg PO DAILY #30 tabs 07/18/23 ondansetron HCl 4 mg tablet 4 mg PO Q8H PRN nausea and 07/18/23 vomiting 3 days #7 tabs Allergies Allergy/AdvReac Type Severity Reaction Status Date / Time No Known Drug Allergies Allergy Verified 07/17/23 06:23 [facility] Medical History Family History Father Family history of CHF (congestive heart failure) Family history of hypertension Family history of myocardial infarction Family history of stroke Grandfather Family history of cancer Family history of myocardial infarction Family history of stroke Uncle Family history of cancer Grandmother Family history of diabetes mellitus Social History Within the past year, how often did you have a drink containing alcohol: never Score interpretation: A score less than 4 is consistent with normal alcohol consumption. Smoking status: Current every day smoker Do you use any of these nicotine containing products: vaping products Non-prescribed substance use: cannabis (any form) Exam Constitutional Vital Signs, click to edit/add: Last Vital Signs Temp 99.8 F 07/21/23 17:20 Pulse 97 H 07/21/23 17:20 Resp 20 07/21/23 17:20 BP 158/110 H 07/21/23 17:20 Pulse Ox 98 07/21/23 17:20 O2 Del Method Room Air 07/21/23 17:20 Course Vital Signs Vital signs: Vital Signs Temperature 99.8 F 07/21/23 17:20 Pulse Rate 97 H 07/21/23 17:20 Respiratory Rate 20 07/21/23 17:20 Blood Pressure 158/110 H 07/21/23 17:20 Pulse Oximetry 98 07/21/23 17:20 Oxygen Delivery Method Room Air 07/21/23 17:20 Temperature 99.8 F 07/21/23 17:20 Pulse Rate 97 H 07/21/23 17:20 Respiratory Rate 20 07/21/23 17:20 Blood Pressure 158/110 H 07/21/23 17:20 Pulse Oximetry 98 07/21/23 17:20 Oxygen Delivery Method Room Air 07/21/23 17:20 Medical Decision Making MDM Narrative Medical decision making narrative: Patient had a CT report that was done without contrast on July 16 at approximately 5 PM. It should a small bowel intussusception in the pelvis involving approximate 6 cm segment of bowel, involving distal jejunum versus proximal ileum intussusception. No obstruction. No free fluid. No pneumoperitoneum. Patient is having IV fluids, IV medication to help with nausea and pain, patient have a CT of the abdomen and pelvis with IV and oral contrast. Oral contrast will be given in light of previous diagnosis of intussusception and to see if there is a transition point, if there is intussusception present at all, small bowel obstruction, or any other acute abnormality. Repeat CT will be done. Patient will be transitioned to Dr. Shahid at 1900 to follow-up on lab work, CT exam, and final disposition. Lab Data Labs: Lab Results 07/21/23 07/21/23 Range/Units 17:35 17:59 WBC 13.7 H (4.0-11.0) 10^3/uL RBC 5.46 (4.70-6.10) 10^6/uL Hgb 16.6 (14.0-18.0) g/dL Hct 50.9 (42.0-54.0) % MCV 93.2 (80.0-94.0) fL MCH 30.4 (25.9-34.0) pg MCHC 32.6 (29.9-35.2) g/dL RDW 11.6 (11.0-15.0) % Plt Count 440 (150-450) 10^3/uL MPV 10.3 (9.5-13.5) fL Neut % (Auto) 75.6 H (43.0-75.0) % Lymph % (Auto) 13.1 L (20.5-60.0) % [place] % (Auto) 9.2 (1.7-12.0) % Eos % (Auto) 1.0 (0.9-7.0) % Baso % (Auto) 0.6 (0.2-2.0) % Neut # (Auto) 10.4 H (1.4-6.5) 10^3/uL Lymph # (Auto) 1.8 (1.2-3.8) 10^3/uL [place] # (Auto) 1.3 H (0.3-0.8) 10^3/uL Eos # (Auto) 0.1 (0.0-0.7) 10^3/uL Baso # (Auto) 0.1 (0.0-0.1) 10^3/uL Abs Immat Gran (auto) 0.07 H (0.00-0.03) 10^3/uL Imm/Tot Granulo (auto) 0.5 (0.0-0.5) % Sodium 144 (136-145) mmol/L Potassium 4.0 (3.5-5.1) mmol/L Chloride 105 (98-107) mmol/L Carbon Dioxide 30.3 (21.0-32.0) mmol/L Anion Gap 12.7 BUN 29.0 H (7.0-18.0) mg/dL Creatinine 1.51 H (0.70-1.30) mg/dL Est GFR ( Amer) >60 (>=60) Est GFR (Non-Af Amer) 50 L (>=60) BUN/Creatinine Ratio 19.2 Glucose 115 H (74-106) mg/dL Lactate 2.0 (0.4-2.0) mmol/L Calcium 9.9 (8.5-10.1) mg/dL Magnesium 2.8 H (1.8-2.4) mg/dL Total Bilirubin 2.9 H (0.2-1.0) mg/dL AST 31 (15-37) U/L ALT 64 H (16-63) U/L Alkaline Phosphatase 99 (46-116) U/L Total Protein 8.5 H (6.4-8.2) g/dL Albumin 4.5 (3.4-5.0) g/dL Globulin 4.0 g/dL Albumin/Globulin Ratio 1.1 Lipase 84.0 (73.0-393.0) U/L Urine Color Dk. orange (YELLOW) Urine Clarity Clear (CLEAR) Urine pH 5.5 (5.0-9.0) Ur Specific [place] >=1.030 A (1.005-1.025) Urine Protein 30 A (NEG/TRACE) mg/dL Urine Glucose (UA) Negative (NEGATIVE) mg/dL Urine Ketones Trace A (NEGATIVE) mg/dL Urine Occult Blood Negative (NEGATIVE) Urine Nitrite Positive A (NEGATIVE) Urine Bilirubin Moderate A (NEGATIVE) Urine Urobilinogen 1.0 (0.2-1.0) EU/dL Ur Leukocyte Esterase Negative (NEGATIVE) Urine RBC 2-5 A (0-2) #/HPF Urine WBC 2-5 A (NONE SEEN) #/HPF Ur Squamous Epith Cells Rare (NONE/RARE) #/LPF Urine Crystals None seen (None Seen) #/HPF Urine Bacteria Trace A (NONE SEEN) #/HPF Urine Casts None seen (NONE SEEN) #/LPF Urine Mucus None seen (NONE SEEN) Ur Culture Indicated? Yes Discharge Plan Discharge Patient Disposition: Still a Patient
--- NOTE | 2023-07-21 17:37 | CT_ITS ---
The [address] [address] Patient Name: GERALDINE RICCI MRN: [id number] date: 1980 Sex: M Assigned Patient Location: ED.MAIN Current Patient Location: ED.MAIN Accession/Order Number: [id number] Exam Date: 07/21/2023 18:53 Report Date: 07/21/2023 19:56 At the request of: ALLAN KIM Procedure: CT abdomen pelvis w con EXAM: CT scan of the abdomen and pelvis using 100 mL of IV iodinated contrast. Oral contrast. Dose reduction technique used: Automated exposure control and/or adjustment of the mA and/or kV according to patient size and/or use of iterative reconstruction technique. REASON FOR EXAM: Mid abdominal pain COMPARISON: MRI dated 07/17/2022 FINDINGS: Mildly distended loops of small bowel without a discrete transition point evident. Small fat-containing umbilical hernia. Old right superior and inferior pubic rami fractures. Small right renal cyst. Normal appendix. No free fluid in the abdomen or pelvis. No free intraperitoneal air. No dilated or thickened loops of small bowel or colon. No hydronephrosis or obstructing renal or ureteral calculi. Liver, pancreas, spleen, bilateral kidneys, and bilateral adrenal glands are otherwise unremarkable. No lymphadenopathy in the abdomen or pelvis. Remainder unremarkable. CT/CT abdomen pelvis w con IMPRESSION: 1. Distended loops of small bowel, pattern is nonspecific, enteritis is a consideration. Mechanical obstruction is felt to be unlikely. 2. Otherwise, no acute abnormalities in the abdomen or pelvis. Electronically authenticated by: GAB KELLY Date: 07/21/2023 19:56
[2023-07-21 17:53] LABS: Basophils Absolute Auto 0.1 10^3/uL (0.0-0.1); Basophils Percent Auto 0.6 % (0.2-2.0); Eosinophils Absolute Auto 0.1 10^3/uL (0.0-0.7); Hematocrit 50.9 % (42.0-54.0); Hemoglobin 16.6 g/dL (14.0-18.0); Immature Granulocytes Abs Auto 0.07 10^3/uL (0.00-0.03); Immature Granulocytes Pct Auto 0.5 % (0.0-0.5); Lymphocytes Absolute Auto 1.8 10^3/uL (1.2-3.8); Lymphocytes Percent Auto 13.1 % (20.5-60.0); Mean Corpuscular HGB Conc 32.6 g/dL (29.9-35.2); Mean Corpuscular Hemoglobin 30.4 pg (25.9-34.0); Mean Corpuscular Volume 93.2 fL (80.0-94.0); Mean Platelet Volume 10.3 fL (9.5-13.5); Monocytes Absolute Auto 1.3 10^3/uL (0.3-0.8); Monocytes Percent Auto 9.2 % (1.7-12.0); Neutrophils Absolute Auto 10.4 10^3/uL (1.4-6.5); Neutrophils Percent Auto 75.6 % (43.0-75.0); Platelet Count 440 10^3/uL (150-450); Red Blood Count 5.46 10^6/uL (4.70-6.10); Red Cell Distribution Width 11.6 % (11.0-15.0); White Blood Count 13.7 10^3/uL (4.0-11.0)
[2023-07-21 18:07] LABS: Bilirubin Urine MODERATE (NEGATIVE); Blood Urine NEGATIVE (NEGATIVE); Clarity Urine CLEAR (CLEAR); Color Urine DK. ORANGE (YELLOW); Glucose Urine UA NEGATIVE (NEGATIVE); Ketones Urine TRACE mg/dL (NEGATIVE); Leukocyte Esterase Urine NEGATIVE (NEGATIVE); Nitrite Urine POSITIVE (NEGATIVE); Protein Urine 30 mg/dL (NEG/TRACE); Specific Gravity Urine >=1.030 (1.005-1.025); pH Urine 5.5 (5.0-9.0)
[2023-07-21 18:09] LABS: Alanine Aminotransferase 64 U/L (16-63); Albumin Globulin Ratio 1.1; Albumin Level 4.5 g/dL (3.4-5.0); Alkaline Phosphatase 99 U/L (46-116); Anion Gap 12.7; Aspartate Amino Transferase 31 U/L (15-37); BUN Creatinine Ratio 19.2; Bilirubin Total 2.9 mg/dL (0.2-1.0); Calcium 9.9 mg/dL (8.5-10.1); Carbon Dioxide 30.3 mmol/L (21.0-32.0); Chloride 105 mmol/L (98-107); Estimated GFR (African America >60 (>=60); Estimated GFR (Non-African Ame 50 (>=60); Glucose 115 mg/dL (74-106); Magnesium 2.8 mg/dL (1.8-2.4); Sodium 144 mmol/L (136-145); Total Protein 8.5 g/dL (6.4-8.2)
[2023-07-21] MEDS: ONDANSETRON PF 4 MG/2 ML VIAL IV (18:14)
[2023-07-21] MEDS: KETOROLAC TROMETHAMINE 30 MG/ML VIAL 15 MG IVP (18:14)
[2023-07-21] MEDS: MORPHINE SULFATE 4 MG/ML VIAL IV ×2 (18:14→19:57)
[2023-07-21] MEDS: DICYCLOMINE HCL 20 MG/2 ML VIAL IM (18:15)
[2023-07-21 18:19] LABS: Bacteria Urine TRACE #/HPF (NONE SEEN); Cast Seen? NONE SEEN #/LPF (NONE SEEN); Crystals Seen? None Seen #/HPF (None Seen); Mucus Urine NONE SEEN (NONE SEEN); Squamous Epithelial Cell Urine RARE #/LPF (NONE/RARE); Urine Culture Indicated YES
[2023-07-21 19:32] VITALS: BP 180/120; PULSE 75; RESP 16; O2SAT 97
--- NOTE | 2023-07-21 19:44 | ED.ABDPAIN1 ---
HPI - Abdominal Pain General Chief Complaint: Abdominal Pain Stated Complaint: DR DAKOTA BOGGS CT SCAN-ABDOMIN Time Seen by Provider: 07/21/23 17:23 Source: patient Mode of arrival: walk-in History of Present Illness HPI narrative: This 42-year-old male was signed out to me at shift change pending CT and labs. The patient was recently admitted to this hospital for abdominal pain and dehydration with acute kidney injury. He was admitted for 2 days and was counseled on by general surgery. There was some degree of concern about a possible intussusception but the general surgeon and radiology reviewed his CT scan and did not see any sign of intussusception. The patient states he was feeling somewhat better and went for his follow-up appointment today at which time he has some mid abdominal tenderness and was sent for a repeat CT scan. I did review his labs. White count is elevated today. His bilirubin is elevated at 2.9. His creatinine is improved at 1.50. He is seen and evaluated. He denies any nausea but is having some generalized abdominal pain and requests something else for pain. He denies that he is having any urinary frequency urgency or dysuria. He has not had a Mejía catheter and has not had any urinary symptoms or flank pain. The scan abdomen and pelvis which is included in the body of this report does not show any sign of bowel obstruction. It does show a mildly distended loop of bowel which is likely a resolving enteritis. The results of the CT scan were discussed with him and he was given a copy of the report. He requested some apple juice to drink. He feels comfortable being discharged home. He states that he was told he could benefit from a prescription of Bentyl. He does have Zofran at home. He'll be discharged home with prescription for Bentyl and Colace. He was encouraged to follow a clear liquid diet and slowly advance his diet over the course of the next several days. Encouraged to follow closely with his family physician for further evaluation and monitoring of his elevated bilirubin. I signed to him that this is likely related to his dehydration. His creatinine has improved significantly since his admission last week. Related Data Home Medications Medication Instructions Recorded Confirmed fluoxetine 40 mg capsule 60 mg PO BEDTIME 07/16/23 07/17/23 olanzapine 2.5 mg tablet 2.5 mg PO BEDTIME 07/16/23 07/17/23 omeprazole 20 mg capsule,delayed 20 mg PO DAILY 07/16/23 07/17/23 release Previous Rx's Medication Instructions Recorded amlodipine 10 mg tablet 10 mg PO DAILY #30 tabs 07/18/23 ondansetron HCl 4 mg tablet 4 mg PO Q8H PRN nausea and 07/18/23 vomiting 3 days #7 tabs Allergies Allergy/AdvReac Type Severity Reaction Status Date / Time No Known Drug Allergies Allergy Verified 07/17/23 06:23 [facility] Medical History Family History Father Family history of CHF (congestive heart failure) Family history of hypertension Family history of myocardial infarction Family history of stroke Grandfather Family history of cancer Family history of myocardial infarction Family history of stroke Uncle Family history of cancer Grandmother Family history of diabetes mellitus Social History Within the past year, how often did you have a drink containing alcohol: never Score interpretation: A score less than 4 is consistent with normal alcohol consumption. Smoking status: Current every day smoker Do you use any of these nicotine containing products: vaping products Non-prescribed substance use: cannabis (any form) Exam Constitutional Vital Signs, click to edit/add: Last Vital Signs Temp 99.8 F 07/21/23 17:20 Pulse 75 07/21/23 19:32 Resp 16 07/21/23 19:32 BP 180/120 H 07/21/23 19:32 Pulse Ox 97 07/21/23 19:32 O2 Del Method Room Air 07/21/23 19:32 Course Vital Signs Vital signs: Vital Signs Temperature 99.8 F 07/21/23 17:20 Pulse Rate 97 H 07/21/23 17:20 Respiratory Rate 20 07/21/23 17:20 Blood Pressure 158/110 H 07/21/23 17:20 Pulse Oximetry 98 07/21/23 17:20 Oxygen Delivery Method Room Air 07/21/23 17:20 Temperature 99.8 F 07/21/23 17:20 Pulse Rate 75 07/21/23 19:32 Respiratory Rate 16 07/21/23 19:32 Blood Pressure 180/120 H 07/21/23 19:32 Pulse Oximetry 97 07/21/23 19:32 Oxygen Delivery Method Room Air 07/21/23 19:32 MDM - Abdominal Pain Medical Records Medical records narrative: The [address] [address] [address] Scan Report Signed Patient: GERALDINE RICCI MR#: [id number] : 1980 Acct:[id number] Age/Sex: 42 / M ADM Date: 07/21/23 Loc: ER Attending Dr: Ordering Physician: Allan Downey Date of Service: 07/21/23 Procedure(s): CT abdomen pelvis w con Accession Number(s): [id number] cc: JEOVANY DUNCAN M.D.~ The [address] [address] Patient Name: GERALDINE RICCI MRN: [id number] date: 1980 Sex: M Assigned Patient Location: ED.MAIN Current Patient Location: ED.MAIN Accession/Order Number: [id number] Exam Date: 07/21/2023 18:53 Report Date: 07/21/2023 19:56 At the request of: ALLAN DOWNEY Procedure: CT abdomen pelvis w con EXAM: CT scan of the abdomen and pelvis using 100 mL of IV iodinated contrast. Oral contrast. Dose reduction technique used: Automated exposure control and/or adjustment of the mA and/or kV according to patient size and/or use of iterative reconstruction technique. REASON FOR EXAM: Mid abdominal pain COMPARISON: MRI dated 07/17/2022 FINDINGS: Mildly distended loops of small bowel without a discrete transition point evident. Small fat-containing umbilical hernia. Old right superior and inferior pubic rami fractures. Small right renal cyst. Normal appendix. No free fluid in the abdomen or pelvis. No free intraperitoneal air. No dilated or thickened loops of small bowel or colon. No hydronephrosis or obstructing renal or ureteral calculi. Liver, pancreas, spleen, bilateral kidneys, and bilateral adrenal glands are otherwise unremarkable. No lymphadenopathy in the abdomen or pelvis. Remainder unremarkable. CT/CT abdomen pelvis w con IMPRESSION: 1. Distended loops of small bowel, pattern is nonspecific, enteritis is a consideration. Mechanical obstruction is felt to be unlikely. 2. Otherwise, no acute abnormalities in the abdomen or pelvis. Electronically authenticated by: GAB KELLY Date: 07/21/2023 19:56 Lab Data Labs: Lab Results 07/21/23 07/21/23 Range/Units 17:35 17:59 WBC 13.7 H (4.0-11.0) 10^3/uL RBC 5.46 (4.70-6.10) 10^6/uL Hgb 16.6 (14.0-18.0) g/dL Hct 50.9 (42.0-54.0) % MCV 93.2 (80.0-94.0) fL MCH 30.4 (25.9-34.0) pg MCHC 32.6 (29.9-35.2) g/dL RDW 11.6 (11.0-15.0) % Plt Count 440 (150-450) 10^3/uL MPV 10.3 (9.5-13.5) fL Neut % (Auto) 75.6 H (43.0-75.0) % Lymph % (Auto) 13.1 L (20.5-60.0) % [place] % (Auto) 9.2 (1.7-12.0) % Eos % (Auto) 1.0 (0.9-7.0) % Baso % (Auto) 0.6 (0.2-2.0) % Neut # (Auto) 10.4 H (1.4-6.5) 10^3/uL Lymph # (Auto) 1.8 (1.2-3.8) 10^3/uL [place] # (Auto) 1.3 H (0.3-0.8) 10^3/uL Eos # (Auto) 0.1 (0.0-0.7) 10^3/uL Baso # (Auto) 0.1 (0.0-0.1) 10^3/uL Abs Immat Gran (auto) 0.07 H (0.00-0.03) 10^3/uL Imm/Tot Granulo (auto) 0.5 (0.0-0.5) % Sodium 144 (136-145) mmol/L Potassium 4.0 (3.5-5.1) mmol/L Chloride 105 (98-107) mmol/L Carbon Dioxide 30.3 (21.0-32.0) mmol/L Anion Gap 12.7 BUN 29.0 H (7.0-18.0) mg/dL Creatinine 1.51 H (0.70-1.30) mg/dL Est GFR ( Amer) >60 (>=60) Est GFR (Non-Af Amer) 50 L (>=60) BUN/Creatinine Ratio 19.2 Glucose 115 H (74-106) mg/dL Lactate 2.0 (0.4-2.0) mmol/L Calcium 9.9 (8.5-10.1) mg/dL Magnesium 2.8 H (1.8-2.4) mg/dL Total Bilirubin 2.9 H (0.2-1.0) mg/dL AST 31 (15-37) U/L ALT 64 H (16-63) U/L Alkaline Phosphatase 99 (46-116) U/L Total Protein 8.5 H (6.4-8.2) g/dL Albumin 4.5 (3.4-5.0) g/dL Globulin 4.0 g/dL Albumin/Globulin Ratio 1.1 Lipase 84.0 (73.0-393.0) U/L Urine Color Dk. orange (YELLOW) Urine Clarity Clear (CLEAR) Urine pH 5.5 (5.0-9.0) Ur Specific [place] >=1.030 A (1.005-1.025) Urine Protein 30 A (NEG/TRACE) mg/dL Urine Glucose (UA) Negative (NEGATIVE) mg/dL Urine Ketones Trace A (NEGATIVE) mg/dL Urine Occult Blood Negative (NEGATIVE) Urine Nitrite Positive A (NEGATIVE) Urine Bilirubin Moderate A (NEGATIVE) Urine Urobilinogen 1.0 (0.2-1.0) EU/dL Ur Leukocyte Esterase Negative (NEGATIVE) Urine RBC 2-5 A (0-2) #/HPF Urine WBC 2-5 A (NONE SEEN) #/HPF Ur Squamous Epith Cells Rare (NONE/RARE) #/LPF Urine Crystals None seen (None Seen) #/HPF Urine Bacteria Trace A (NONE SEEN) #/HPF Urine Casts None seen (NONE SEEN) #/LPF Urine Mucus None seen (NONE SEEN) Ur Culture Indicated? Yes Discharge Plan Discharge Chief Complaint: Abdominal Pain Clinical Impression: Nausea and vomiting, Abdominal pain, Elevated liver enzymes Patient Disposition: Home, Self-Care Time of Disposition Decision: 20:14 Condition: Good Prescriptions / Home Meds: No Action fluoxetine 40 mg capsule 60 mg PO BEDTIME olanzapine 2.5 mg tablet 2.5 mg PO BEDTIME omeprazole 20 mg capsule,delayed release(DR/EC) 20 mg PO DAILY ondansetron HCl 4 mg tablet 4 mg PO Q8H PRN (Reason: nausea and vomiting) 3 Days Qty: 7 0RF amlodipine 10 mg tablet 10 mg PO DAILY Qty: 30 0RF Stand Alone Forms: Portal Instructions Referrals: JEOVANY DUNCAN APRN [Primary Care Provider] - 1 week
[2023-07-21] MEDS: 0.9 % SODIUM CHLORIDE 1,000 ML 1000 ML IV (19:57)
[2023-07-21 20:29] VITALS: BP 160/100; PULSE 65; RESP 16; O2SAT 100
[2023-07-21 21:20] VITALS: BP 150/90; PULSE 65; RESP 16; O2SAT 98
== END 2023-07-21 21:20 | disposition home or self-care (01) ==
PROVIDERS: Emergency Medicine; Physician Assistant; Emergency Provider Emergency Medicine; PCP Nurse Practitioner Primary Care
DX: R10.9 Unspecified abdominal pain (principal); R11.2 Nausea with vomiting, unspecified; R74.8 Abnormal levels of other serum enzymes; Z79.899 Other long term (current) drug therapy; F17.210 Nicotine dependence, cigarettes, uncomplicated
CPT/HCPCS: 36415; 74177; 80053; 81001; 83605; 83690; 83735; 85025; 87086; 96361; 96372; 96374; 96375; 96376; 99284; J0500; Q9966

== ENCOUNTER 2023-11-04 17:44 | Emergency (ER) | payer OTHER, SELFPAY ==
[2023-11-04 17:47] VITALS: BP 188/120; PULSE 100; RESP 20; TEMP 36.7; O2SAT 99; BMI 24.2
--- NOTE | 2023-11-04 17:57 | ED.NAVMDI1 ---
HPI - Nausea/Vomiting/Diarrhea General Chief complaint: Nausea/Vomiting/Diarrhea Stated complaint: VOMITING Time Seen by Provider: 11/04/23 17:45 Source: patient Mode of arrival: walk-in History of Present Illness HPI Narrative: Patient is a 43-year-old male who presents to the emergency department for the evaluation of nausea and vomiting that began today. He reports diffuse mid abdominal pain. He has had no fevers, chills, cough, congestion. He denies diarrhea. He states he is urinating less but has no other urinary symptoms. No previous abdominal surgeries. He was seen in this emergency department several months ago and diagnosed with questionable intussusception and admitted for acute kidney injury and general surgery consult after which he was found to not have intussusception and only enteritis. Related Data Home Medications Medication Instructions Recorded Confirmed fluoxetine 40 mg capsule 60 mg PO BEDTIME 07/16/23 07/17/23 olanzapine 2.5 mg tablet 2.5 mg PO BEDTIME 07/16/23 11/04/23 omeprazole 20 mg capsule,delayed 20 mg PO DAILY 07/16/23 11/04/23 release fluoxetine 60 mg tablet 60 mg PO QPM 11/04/23 11/04/23 Previous Rx's Medication Instructions Recorded amlodipine 10 mg tablet 10 mg PO DAILY #30 tabs 07/18/23 hyoscyamine sulfate 0.125 mg 0.125 mg PO Q6H PRN abdominal pain 11/04/23 tablet (Levsin) #12 tabs ondansetron 4 mg disintegrating 4 mg PO Q6H PRN nausea and 11/04/23 tablet vomiting #12 tabs pantoprazole 40 mg tablet,delayed 40 mg PO DAILY #7 tabs 11/04/23 release (Protonix) Allergies Allergy/AdvReac Type Severity Reaction Status Date / Time No Known Drug Allergies Allergy Verified 07/17/23 06:23 Review of Systems ROS Constitutional Denies: fever or chills Ears, nose, mouth, and throat Denies: throat pain or nasal congestion Cardiovascular Denies: chest pain Respiratory Denies: shortness of breath or cough Gastrointestinal Reports: abdominal pain, nausea and vomiting; Denies: diarrhea Genitourinary Reports: decreased urine ouput; Denies: painful urination or urinary frequency Musculoskeletal Denies: back pain Integumentary/Breast Denies: rash Neurological Denies: headache PFSH PFSH Medical History Family History Father Family history of CHF (congestive heart failure) Family history of hypertension Family history of myocardial infarction Family history of stroke Grandfather Family history of cancer Family history of myocardial infarction Family history of stroke Uncle Family history of cancer Grandmother Family history of diabetes mellitus Social History Within the past year, how often did you have a drink containing alcohol: never Score interpretation: A score less than 4 is consistent with normal alcohol consumption. Smoking status: Current every day smoker Do you use any of these nicotine containing products: vaping products Non-prescribed substance use: cannabis (any form) Exam Narrative Exam Narrative: Gen.: Awake, alert, in no distress Head: Normocephalic, atraumatic ENT: Moist mucous membranes Respiratory: No respiratory distress, lungs clear bilaterally Cardio: Regular rate and rhythm Gastrointestinal: Abdomen is soft, nondistended and diffusely tender to palpation throughout the mid abdomen, no guarding or rebound Extremities: Moves extremities equally Psych: Normal mood and affect Neuro: No focal neuro deficit Skin: Warm, dry, intact Constitutional Vital Signs, click to edit/add: Last Vital Signs Temp 98.1 F 11/04/23 17:47 Pulse 90 11/04/23 19:47 Resp 16 11/04/23 19:47 BP 183/95 H 11/04/23 19:47 Pulse Ox 96 11/04/23 19:47 O2 Del Method Room Air 11/04/23 17:47 Course Vital Signs Vital signs: Vital Signs Temperature 98.1 F 11/04/23 17:47 Pulse Rate 100 H 11/04/23 17:47 Respiratory Rate 20 11/04/23 17:47 Blood Pressure 188/120 H 11/04/23 17:47 Pulse Oximetry 99 11/04/23 17:47 Oxygen Delivery Method Room Air 11/04/23 17:47 Temperature 98.1 F 11/04/23 17:47 Pulse Rate 90 11/04/23 19:47 Respiratory Rate 16 11/04/23 19:47 Blood Pressure 183/95 H 11/04/23 19:47 Pulse Oximetry 96 11/04/23 19:47 Oxygen Delivery Method Room Air 11/04/23 17:47 MDM - Nausea/Vomiting/Diarrhea MDM Narrative Medical decision making narrative: Lab studies show leukocytosis, patient had a CT of the abdomen and pelvis with IV contrast showing no evidence of acute process. Lactic acid improved after 2 L of IV fluids. Patient tolerated ice chips and water with no additional vomiting after medications in the ER. Abdomen is soft and benign and the patient is discharged home to follow-up with PCP. Zofran, Levsin, Protonix given for home. His drug screen was positive for cannabinoids, I suspect cyclic vomiting. Return to the ER if symptoms change or worsen. Medical Records Attestation: I reviewed the patient's medical records. Lab Data Attestation: I reviewed the patient's lab results. Labs: Lab Results 11/04/23 11/04/23 11/04/23 Range/Units 18:09 18:49 20:38 WBC 19.7 H (4.0-11.0) 10^3/uL RBC 4.83 (4.70-6.10) 10^6/uL Hgb 14.4 (14.0-18.0) g/dL Hct 43.9 (42.0-54.0) % MCV 90.9 (80.0-94.0) fL MCH 29.8 (25.9-34.0) pg MCHC 32.8 (29.9-35.2) g/dL RDW 12.6 (11.0-15.0) % Plt Count 670 H (150-450) 10^3/uL MPV 10.0 (9.5-13.5) fL Neut % (Auto) 90.9 H (43.0-75.0) % Lymph % (Auto) 4.0 L (20.5-60.0) % [place] % (Auto) 3.8 (1.7-12.0) % Eos % (Auto) 0.2 L (0.9-7.0) % Baso % (Auto) 0.4 (0.2-2.0) % Neut # (Auto) 17.9 H (1.4-6.5) 10^3/uL Lymph # (Auto) 0.8 L (1.2-3.8) 10^3/uL [place] # (Auto) 0.7 (0.3-0.8) 10^3/uL Eos # (Auto) 0.0 (0.0-0.7) 10^3/uL Baso # (Auto) 0.1 (0.0-0.1) 10^3/uL Abs Immat Gran (auto) 0.13 H (0.00-0.03) 10^3/uL Imm/Tot Granulo (auto) 0.7 H (0.0-0.5) % Sodium 143 (136-145) mmol/L Potassium 3.9 (3.5-5.1) mmol/L Chloride 104 (98-107) mmol/L Carbon Dioxide 20.2 L (21.0-32.0) mmol/L Anion Gap 22.7 BUN 24.0 H (7.0-18.0) mg/dL Creatinine 1.59 H (0.70-1.30) mg/dL Est GFR ( Amer) 57 L (>=60) Est GFR (Non-Af Amer) 47 L (>=60) BUN/Creatinine Ratio 15.1 Glucose 169 H (74-106) mg/dL Lactate 6.3 H* 3.0 H* (0.4-2.0) mmol/L Calcium 11.4 H (8.5-10.1) mg/dL Total Bilirubin 1.2 H (0.2-1.0) mg/dL AST 19 (15-37) U/L ALT 25 (16-63) U/L Alkaline Phosphatase 130 H (46-116) U/L Total Protein 9.6 H (6.4-8.2) g/dL Albumin 4.7 (3.4-5.0) g/dL Globulin 4.9 g/dL Albumin/Globulin Ratio 1.0 Lipase 11.0 L (16.0-77.0) U/L Urine Color Dk. yellow (YELLOW) Urine Clarity Clear (CLEAR) Urine pH 5.5 (5.0-9.0) Ur Specific [place] >=1.030 A (1.005-1.025) Urine Protein 100 A (NEG/TRACE) mg/dL Urine Glucose (UA) Negative (NEGATIVE) mg/dL Urine Ketones 15 A (NEGATIVE) mg/dL Urine Occult Blood Negative (NEGATIVE) Urine Nitrite Negative (NEGATIVE) Urine Bilirubin Small A (NEGATIVE) Urine Urobilinogen 1.0 (0.2-1.0) EU/dL Ur Leukocyte Esterase Negative (NEGATIVE) Urine Opiates Screen Negative (NEGATIVE) Ur Buprenorphine Scrn Negative (NEGATIVE) Ur Oxycodone Screen Negative (NEGATIVE) Urine Methadone Screen Negative (NEGATIVE) Ur Barbiturates Screen Negative (NEGATIVE) U Tricyclic Antidepress Negative (NEGATIVE) Ur Phencyclidine Scrn Negative (NEGATIVE) Ur Amphetamines Screen Negative (NEGATIVE) U Methamphetamines Scrn Negative (NEGATIVE) U Benzodiazepines Scrn Positive A (NEGATIVE) Urine Cocaine Screen Negative (NEGATIVE) U Cannabinoids Screen Positive A (NEGATIVE) Imaging Data CT scan - abdomen: Attestation: I have reviewed the pertinent imaging results. Radiologist's impression: Procedure: CT abdomen pelvis w con EXAM: CT scan of the abdomen and pelvis using 99 mL of IV iodinated contrast. Dose reduction technique used: Automated exposure control and/or adjustment of the mA and/or kV according to patient size and/or use of iterative reconstruction technique. REASON FOR EXAM: nausea and vomiting COMPARISON: CT scan dated 07/21/2023 FINDINGS: Small fat-containing umbilical hernia. Old right superior 1 and inferior pubic rami fractures. Small bilateral renal cysts. Hepatomegaly measuring up to 21.2 cm. Normal appendix. No free fluid in the abdomen or pelvis. No free intraperitoneal air. No dilated or thickened loops of small bowel or colon. No hydronephrosis or obstructing renal or ureteral calculi. Liver, pancreas, spleen, bilateral kidneys, and bilateral adrenal glands are otherwise unremarkable. No lymphadenopathy in the abdomen or pelvis. Remainder unremarkable. IMPRESSION: No acute abnormalities in the abdomen or pelvis. Electronically authenticated by: GAB KELLY Date: 11/04/2023 19:53 Discharge Plan Discharge Chief Complaint: Nausea/Vomiting/Diarrhea Clinical Impression: Nausea and vomiting, Abdominal pain Patient Disposition: Home, Self-Care Time of Disposition Decision: 21:18 Condition: Good Prescriptions / Home Meds: New pantoprazole [Protonix] 40 mg tablet,delayed release (DR/EC) 40 mg PO DAILY Qty: 7 0RF hyoscyamine sulfate [Levsin] 0.125 mg tablet 0.125 mg PO Q6H PRN (Reason: abdominal pain) Qty: 12 0RF ondansetron 4 mg tablet,disintegrating 4 mg PO Q6H PRN (Reason: nausea and vomiting) Qty: 12 0RF No Action fluoxetine 40 mg capsule 60 mg PO BEDTIME olanzapine 2.5 mg tablet 2.5 mg PO BEDTIME omeprazole 20 mg capsule,delayed release(DR/EC) 20 mg PO DAILY amlodipine 10 mg tablet 10 mg PO DAILY Qty: 30 0RF fluoxetine 60 mg tablet 60 mg PO QPM Instructions: Acute Nausea and Vomiting (ED) Stand Alone Forms: Portal Instructions Referrals: JEOVANY DUNCAN APRN [Primary Care Provider] - 1 week
[2023-11-04] MEDS: 0.9 % SODIUM CHLORIDE 1,000 ML 999 ML IV (17:59)
[2023-11-04] MEDS: ONDANSETRON PF 4 MG/2 ML VIAL IV (18:10)
[2023-11-04] MEDS: PANTOPRAZOLE SODIUM 40 MG VIAL IV (18:10)
[2023-11-04] MEDS: HYOSCYAMINE SULFATE 0.125 MG TAB.SUBL SL (18:10)
[2023-11-04 18:19] LABS: Basophils Absolute Auto 0.1 10^3/uL (0.0-0.1); Basophils Percent Auto 0.4 % (0.2-2.0); Eosinophils Percent Auto 0.2 % (0.9-7.0); Hematocrit 43.9 % (42.0-54.0); Hemoglobin 14.4 g/dL (14.0-18.0); Immature Granulocytes Abs Auto 0.13 10^3/uL (0.00-0.03); Immature Granulocytes Pct Auto 0.7 % (0.0-0.5); Lymphocytes Absolute Auto 0.8 10^3/uL (1.2-3.8); Mean Corpuscular HGB Conc 32.8 g/dL (29.9-35.2); Mean Corpuscular Hemoglobin 29.8 pg (25.9-34.0); Mean Corpuscular Volume 90.9 fL (80.0-94.0); Monocytes Absolute Auto 0.7 10^3/uL (0.3-0.8); Monocytes Percent Auto 3.8 % (1.7-12.0); Neutrophils Absolute Auto 17.9 10^3/uL (1.4-6.5); Neutrophils Percent Auto 90.9 % (43.0-75.0); Platelet Count 670 10^3/uL (150-450); Red Blood Count 4.83 10^6/uL (4.70-6.10); Red Cell Distribution Width 12.6 % (11.0-15.0); White Blood Count 19.7 10^3/uL (4.0-11.0)
[2023-11-04] MEDS: PROCHLORPERAZINE 10 MG/2 ML VIAL IV (18:33)
[2023-11-04 18:43] LABS: Alanine Aminotransferase 25 U/L (16-63); Albumin Level 4.7 g/dL (3.4-5.0); Alkaline Phosphatase 130 U/L (46-116); Anion Gap 22.7; Aspartate Amino Transferase 19 U/L (15-37); BUN Creatinine Ratio 15.1; Bilirubin Total 1.2 mg/dL (0.2-1.0); Calcium 11.4 mg/dL (8.5-10.1); Carbon Dioxide 20.2 mmol/L (21.0-32.0); Chloride 104 mmol/L (98-107); Estimated GFR (African America 57 (>=60); Estimated GFR (Non-African Ame 47 (>=60); Globulin 4.9 g/dL; Glucose 169 mg/dL (74-106); Potassium 3.9 mmol/L (3.5-5.1); Sodium 143 mmol/L (136-145); Total Protein 9.6 g/dL (6.4-8.2)
[2023-11-04 18:46] LABS: Lactate/Lactic Acid 6.3 mmol/L (0.4-2.0)
--- NOTE | 2023-11-04 18:46 | CT_ITS ---
The [address] [address] Patient Name: GERALDINE RICCI MRN: [id number] date: 1980 Sex: M Assigned Patient Location: ER Current Patient Location: Accession/Order Number: [id number] Exam Date: 11/04/2023 19:00 Report Date: 11/04/2023 19:53 At the request of: JULIAN GALLAGHER Procedure: CT abdomen pelvis w con EXAM: CT scan of the abdomen and pelvis using 99 mL of IV iodinated contrast. Dose reduction technique used: Automated exposure control and/or adjustment of the mA and/or kV according to patient size and/or use of iterative reconstruction technique. REASON FOR EXAM: nausea and vomiting COMPARISON: CT scan dated 07/21/2023 FINDINGS: Small fat-containing umbilical hernia. Old right superior 1 and inferior pubic rami fractures. Small bilateral renal cysts. Hepatomegaly measuring up to 21.2 cm. Normal appendix. No free fluid in the abdomen or pelvis. No free intraperitoneal air. No dilated or thickened loops of small bowel or colon. No hydronephrosis or obstructing renal or ureteral calculi. Liver, pancreas, spleen, bilateral kidneys, and bilateral adrenal glands are otherwise unremarkable. No lymphadenopathy in the abdomen or pelvis. Remainder unremarkable. CT/CT abdomen pelvis w con IMPRESSION: No acute abnormalities in the abdomen or pelvis. Electronically authenticated by: GAB KELLY Date: 11/04/2023 19:53
[2023-11-04 19:32] LABS: Amphetamine Screen Urine NEGATIVE (NEGATIVE); Barbiturates Screen Urine NEGATIVE (NEGATIVE); Benzodiazepines Screen Urine POSITIVE (NEGATIVE); Buprenorphine Screen Urine NEGATIVE (NEGATIVE); Cannabinoid Screen Urine POSITIVE (NEGATIVE); Cocaine Screen Urine NEGATIVE (NEGATIVE); Methadone Screen Urine NEGATIVE (NEGATIVE); Methamphetamines Screen Urine NEGATIVE (NEGATIVE); Opiate Screen Urine NEGATIVE (NEGATIVE); Oxycodone Screen Urine NEGATIVE (NEGATIVE); Phencyclidine Screen Urine NEGATIVE (NEGATIVE); Tricyclic Antidepressant Urine NEGATIVE (NEGATIVE)
[2023-11-04 19:47] VITALS: BP 183/95; PULSE 90; RESP 16; O2SAT 96
[2023-11-04] MEDS: 0.9 % SODIUM CHLORIDE 1,000 ML 1000 ML IV (19:48)
[2023-11-04] MEDS: KETOROLAC TROMETHAMINE 30 MG/ML VIAL IVP (20:14)
[2023-11-04] MEDS: ONDANSETRON 4 MG RAPDIS TABLET SL (21:30)
[2023-11-04] MEDS: PROMETHAZINE HCL 25 MG TABLET PO (21:30)
[2023-11-04 21:31] VITALS: BP 176/98; PULSE 86; RESP 16; O2SAT 98
== END 2023-11-04 21:37 | disposition home or self-care (01) ==
PROVIDERS: Physician Assistant; Emergency Provider Internal Medicine; PCP Nurse Practitioner Primary Care
DX: R11.2 Nausea with vomiting, unspecified (principal); R10.9 Unspecified abdominal pain; Z79.899 Other long term (current) drug therapy; F17.290 Nicotine dependence, other tobacco product, uncomplicated; F12.90 Cannabis use, unspecified, uncomplicated
CPT/HCPCS: 36415; 74177; 80053; 80307; 81003; 83605; 83690; 85025; 96361; 96374; 96375; 99285; J0780; J1885; J2405; Q0162; Q0169; Q9967

== ENCOUNTER 2024-02-05 21:22 | Inpatient (IN) | payer OTHER, SELFPAY ==
[2024-02-05 21:25] VITALS: BP 123/94; PULSE 102; TEMP 36.7; O2SAT 99; BMI 25.7
--- OUTSIDE RECORDS SUMMARY | 2024-02-05 21:33 | XMS_ITS | CCD ---
Author Organization [facility] Care Team Providers Care Melter Operator Name Role Phone RANJANA TRAYLOR Primary Care Physician [phone] COOPERLAnupam Attending Unavailable NILL, Anupam Bob Attending Unavailable NILL, Anupam Bob Attending Unavailable NILL, Anupam Bob Attending Unavailable NILL, Anupam Bob Attending Unavailable WEST, DR ALEXA Alcaraz Consulting Unavailable NADERER, DR RANJANA Samaniego Admitting Unavailable NADERER, DR RANJANA Samaniego Attending Unavailable NADERER, DR RANJANA Samaniego Consulting Unavailable PAY ., DR LEMUS Consulting Unavailable NILL ., DR BO Attending Unavailable NADERER, DR RANJANA Samaniego Primary Care Unavailable NILL ., DR BO Consulting Unavailable NILL ., DR BO Admitting Unavailable NITIN, FANTA SUNG Consulting Unavaila ble GEMBUS, ASHIA Consulting Unavailable SHAMMO, JEOVANY Admitting Unavailable SHAMMO, JEOVANY Attending Unavailable SHAMMO, JEOVANY Consulting Unavailable SHAMMO, JEOVANY Primary Care Unavailable MAKENZIE TURNER Attending Unavailable REQUEST, NONE LISTED Primary Care Unavaila MAKENZIE Shaw Consulting Unavailable MAKENZIE TURNER Admitting Unavailable JAILYN ., EVELYN Consulting Unavailable JAILYN ., EVELYN Admitting Unavailable NADSYED, DR RANJANA Samaniego Primary Care Unavailable JAILYN ., EVELYN Attending Unavailable SHILPI THAPA Consulting Unavailable JAILYN ., EVELYN Attending Unavailable JAILYN ., EVELYN Consulting Unavailable JAILYN ., EVELYN Admitting Unavailable REQUEST, NONE LISTED Primary Care Unavaila MAKENZIE Shaw Consulting Unavailable NILL ., DR BO Consulting Unavailable NILL ., DR BO Admitting Unavailable NILL ., DR BO Attending Unavailable NADERER, DR RANJANA Samnaiego Primary Care Unavailable NILL ., DR BO Consulting Unavailable NILL ., DR BO Admitting Unavailable NILL ., DR BO Attending Unavailable NADERER, DR RANJANA Samaniego Primary Care Unavailable Allergies Allergy Classification Reported Allergen(s) Allergy Type Date of Onset Reaction(s) Facility (1 source) No Known Medication Allergies; Translations: [No Known Medication Allergies] Propensity to adverse reactions (disorder) [facility] Repository Medications Current Medications Medication Drug Class(es) Dates Sig (Normalized) Sig (Original) Omeprazole (2 sources) Proton Pump Inhibitor Start: 07-02-2022 take 1 tablet by mouth once daily Prilosec OTC = 1 tab(s), Oral, Daily, Refills(s) 0 Start Date: 07/02/22 Status: Ordered Problems Active Problems Problem Classification Problem Date Documented Date Episodic/Chronic Acute and unspecified renal failure (5 sources) Acute kidney failure, unspecified; Translations: [ACUTE KIDNEY FAILURE UNSPECIFIED] Onset: 2 Episodic Alcohol-related disorders (3 sources) Persistent alcohol abuse ; Translations: [Alcohol abuse, uncomplicated] Onset: 3 06-27-2022 Chronic Digestive congenital anomalies (1 source) Other specified congenital malformations of intestine; Translations: [OTH SPEC CONGEN MALFORM INTESTINE] Onset: 2 Chronic Immunizations and screening for infectious disease (2 sources) Encounter for screening for human immunodeficiency virus [HIV]; Translations: [Encounter for screening for other viral diseases] Onset: 3 Episodic Nausea and vomiting (9 sources) Nausea and vomiting; Translations: [Nausea with vomiting, unspecified] Onset: 2 Episodic 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 Other gastrointestinal disorders (1 source) Irritable bowel syndrome without diarrhea; Translations: [IRRITABLE BOWEL SYND W/O DIARRHEA] Onset: 2 Chronic Other gastrointestinal disorders (1 source) Diarrhea, unspecified; Translations: [DIARRHEA UNSPECIFIED] Onset: 3 Episodic Other nutritional; endocrine; and metabolic disorders (1 source) Disorder of bilirubin metabolism; Translations: [Other disorders of bilirubin metabolism] Onset: 2 Chronic Other nutritional; endocrine; and metabolic disorders (2 sources) 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 Other nutritional; endocrine; and metabolic disorders (1 source) Other disorders of bilirubin metabolism; Translations: [OTH DISORDERS BILIRUBIN METABOLISM] Onset: 2 Chronic Other screening for suspected conditions (not mental disorders or infectious disease) (1 source) Encounter for screening for cardiovascular disorders; Translations: [ENC FOR SCREENING FOR CV DISORDERS] Onset: 3 Episodic Substance-related disorders (1 source) Cannabis abuse, uncomplicated; Translations: [CANNABIS ABUSE UNCOMPLICATED] Onset: 2 Chronic Unclassified (2 sources) Body mass index 20-24 - normal 07-02-2022 Unclassified (1 source) CONTACT W/AND (SUSP) EXPOS COVID-19; Translations: [CONTACT W/AND (SUSP) EXPOS COVID-19] Onset: 3 Past or Other Problems Problem Classification Problem Date Documented Date Episodic/Chronic Abdominal pain (14 sources) Right lower quadrant pain; Translations: [Right lower quadrant pain] Onset: 04-01-2022 Episodic Biliary tract disease (8 sources) Cholelithiasis without obstruction; Translations: [Calculus of gallbladder without cholecystitis without obstruction] Onset: 07-02-2022 Episodic Fluid and electrolyte disorders (2 sources) Dehydration; Translations: [DEHYDRATION] Onset: 04-05-2022 Episodic Gastritis and duodenitis (3 sources) Gastritis; Translations: [Gastritis, unspecified, without bleeding] Onset: 04-05-2022 06-27-2022 Episodic Residual codes; unclassified (1 source) Tobacco use; Translations: [TOBACCO USE] Onset: 07-29-2022 Episodic Screening and history of mental health and substance abuse codes (1 source) Personal history of nicotine dependence; Translations: [PERSONAL HISTORY OF NICOTINE DEPEND] Onset: 04-05-2022 Episodic Results Test Name Value Interpretation Reference Range Facility HEPATITIS C AB CASCADE TO QU ANT PCR GENOon 01-30-2023 HCV AB Non-Reactive Normal Non Reactive [facility] Comment on above: Performed By: #### L ACT #### [facility] [address] [address] [address] Etienne Fitch Interpretation: Comment Normal [facility] Comment on above: Result Comment: Not infected with HCV unless early or acute infection is suspected (which may be delayed in an immunocompromised individual), or other evidence exists to indicate HCV infection. Performed By: #### L ACT #### [facility] [address] [place], [place] [address] Dr. Etienne Fitch HIV 1 AND 2 WITH REFLEXon HIV Screen 4th Generation wRfx Non-Reactive Normal Non Reactive [facility] Comment on above: Result Comment: HIV Negative HIV-1/HIV-2 antibodies and HIV-1 p24 antigen were NOT detected. There is no laboratory evidence of HIV infection. Performed By: #### H IV12 #### [facility] [address] [address] [address] Etienne Fitch LIPID PROFILEon 01-29-2023 CHOL-HDL RATIO NORM SEE BELOW Normal [facility] Comment on above: Result Comment: 3.3 - 4.4 LOW RISK 4.4 - 7.1 AVERAGE RISK 7.1 - 11.0 MODERATE RISK >11.0 HIGH RISK Performed By: #### U MICRO, ERUR #### [facility] [address] [address] [address] Etienne Fitch Cholesterol [Mass/Vol] 196 mg/dL Normal <=200 [facility] Comment on above: Performed By: #### U MICRO, ERUR #### [facility] [address] [address] [address] Eteinne Fitch Cholesterol in HDL [Mass/Vol] 78 mg/dL Critically high 40-60 [facility] Comment on above: Performed By: #### U MICRO, ERUR #### [facility] [address] [address] [address] Etienne Fitch Cholesterol in LDL [Mass/Vol] 106.6 mg/dL Normal [facility] Comment on above: Performed By: #### U MICRO, ERUR #### [facility] [address] [address] [address] Etienne Fitch Cholesterol.total /Cholesterol in HDL [Mass ratio] 2.5 {ratio} Normal [facility] Comment on above: Performed By: #### U MICRO, ERUR #### [facility] [address] [address] [address] Etienne Fitch HDL NORMAL > or = 60 mg/dl - LO W CARDIOVASCULAR RISK <40 mg/dl - HIGH CARDIOVASCULAR RISK Normal [facility] Comment on above: Performed By: #### U MICRO, ERUR #### [facility] [address] [address] [address] Etienne Fitch LDL CALC NORMAL SEE BELOW Normal [facility] Comment on above: Result Comment: <100 mg/dl OPTIMAL 100 - 129 mg/dl NEAR OR ABOVE OPTIMAL 130 - 159 mg/dl BORDERLINE HIGH 160 - 189 mg/dl HIGH >190 mg/dl VERY HIGH Performed By: #### U MICRO, ERUR #### [facility] [address] [place] [address] Dr. Etienne Fitch Triglyceride [Mass/Vol] 57 mg/dL Normal <=150 [facility] Comment on above: Performed By: #### U MICRO, ERUR #### [facility] [address] [place] [address] Dr. Etienne Fitch VLDL CALC 11.4 mg/dL Normal [facility] Comment on above: Performed By: #### U MICRO, ERUR #### [facility] [address] [place] [address] Dr. Etienne Fitch PROF CHEM 8 (BAS METB)on Anion gap [Moles/Vol] 7.4 mmol/L Normal [facility] Comment on above: Performed By: #### U MICRO, ERUR #### [facility] [address] [place] [address] Dr. Etienne Fitch Calcium [Mass/Vol] 10.0 mg/dL Normal 8.5-10.1 [facility] Comment on above: Performed By: #### U MICRO, ERUR #### [facility] [address] [place] [address] Dr. Etienne Fitch Chloride [Moles/Vol] 101 mmol/L Normal 98-107 [facility] Comment on above: Performed By: #### U MICRO, ERUR #### [facility] [address] [place] [address] Dr. Etienne Fitch CO2 [Moles/Vol] 34.0 mmol/L Critically high 21.0-32.0 [facility] Comment on above: Performed By: #### U MICRO, ERUR #### [facility] [address] [place] [address] Dr. Etienne Fitch Creatinine [Mass/Vol] 1.27 mg/dL Normal 0.70-1.30 [facility] Comment on above: Performed By: #### U MICRO, ERUR #### [facility] [address] [address] [address] Etienne Fitch EGFR-AF ETHIOPIAN >60 Normal >=60 [facility] Comment on above: Performed By: #### U MICRO, ERUR #### [facility] [address] [address] [address] Etienne Fitch EGFR-NON AF ETHIOPIAN >60 Normal >=60 [facility] Comment on above: Performed By: #### U MICRO, ERUR #### [facility] [address] [address] [address] Etienne Fitch Glucose [Mass/Vol] 116 mg/dL Critically high 74-106 [facility] Comment on above: Performed By: #### U MICRO, ERUR #### [facility] [address] [place] [address] Dr. Etienne Fitch Potassium [Moles/Vol] 4.4 mmol/L Normal 3.5-5.1 [facility] Comment on above: Performed By: #### U MICRO, ERUR #### [facility] [address] [address] [address] Etienne Fitch Sodium [Moles/Vol] 138 mmol/L Normal 136-145 [facility] Comment on above: Performed By: #### U MICRO, ERUR #### [facility] [address] [address] [address] Etienne Fitch Urea nitrogen [Mass/Vol] 33.0 mg/dL Critically high 7.0-18.0 [facility] Comment on above: Performed By: #### U MICRO, ERUR #### [facility] [address] [address] [address] Etienne Fitch Urea nitrogen/Creatini ne [Mass ratio] 26.0 mg/mg Normal [facility] Comment on above: Performed By: #### U MICRO, ERUR #### [facility] [address] [place] [address] Dr. Etienne Fitch CBC AUTO DIFFon 12-12-2022 BASO # 0.0 103/ul Normal 0.0-0.1 [facility] Comment on above: Performed By: #### C BC #### [facility] [address] [address] [address] Etienne Fitch Basophils/100 WBC (Bld) 0.2 % Normal 0.2-2.0 [facility] Comment on above: Performed By: #### C BC #### [facility] [address] [address] [address] Etienne Fitch EO # 0.0 103/ul Normal 0.0-0.7 [facility] Comment on above: Performed By: #### C BC #### [facility] [address] [address] [address] Etienne Fitch Eosinophils/100 WBC (Bld) 0.1 % Critically low 0.9-7.0 [facility] Comment on above: Performed By: #### C BC #### [facility] [address] [place] [address] Dr. Etienne Fitch Erythrocyte distribution width (RBC) [Ratio] 12.8 % Normal 11.0-15.0 [facility] Comment on above: Performed By: #### C BC #### [facility] [address] [place] [address] Dr. Etienne Fitch Hematocrit (Bld) [Volume fraction] 55.0 % Critically high 42.0-54.0 [facility] Comment on above: Performed By: #### C BC #### [facility] [address] [place] [address] Dr. Etienne Fitch Hemoglobin (Bld) [Mass/Vol] 18.5 g/dL Critically high 14.0-18.0 [facility] Comment on above: Performed By: #### C BC #### [facility] [address] [place] [address] Dr. Etienne Fitch IG # 0.07 10e3/ul Critically high 0.00-0.03 [facility] Comment on above: Performed By: #### C BC #### [facility] [address] [place] [address] Dr. Etienne Fitch IG % 0.5 % Normal 0.0-0.5 [facility] Comment on above: Performed By: #### C BC #### [facility] [address] [place] [address] Dr. Eteinne Fitch LYMPH # 1.4 103/ul Normal 1.2-3.8 [facility] Comment on above: Performed By: #### C BC #### [facility] [address] [place] [address] Dr. Etienne Fitch Lymphocytes/100 WBC (Bld) 10.1 % Critically low 20.5-60.0 [facility] Comment on above: Performed By: #### C BC #### [facility] [address] [place] [address] Dr. Etienne Fitch MANUAL DIFF REQ NO Normal [facility] Comment on above: Performed By: #### C BC #### [facility] [address] [place] [address] Dr. Etienne Fitch MCH (RBC) [Entitic mass] 29.6 pg Normal 25.9-34.0 [facility] Comment on above: Performed By: #### C BC #### [facility] [address] [place] [address] Dr. Etienne Fitch MCHC (RBC) [Mass/Vol] 33.6 g/dL Normal 29.9-35.2 [facility] Comment on above: Performed By: #### C BC #### [facility] [address] [place] [address] Dr. Etienne Fitch MCV (RBC) [Entitic vol] 87.9 fL Normal 80.0-94.0 [facility] Comment on above: Performed By: #### C BC #### [facility] [address] [place] [address] Dr. Etienne Fitch MONO # 1.5 103/ul Critically high 0.3-0.8 [facility] Comment on above: Performed By: #### C BC #### [facility] [address] [place] [address] Dr. Etienne Fitch Monocytes/100 WBC (Bld) 11.3 % Normal 1.7-12.0 [facility] Comment on above: Performed By: #### C BC #### [facility] [address] [place] [address] Dr. Etienne Fitch NEUT # 10.6 103/ul Critically high 1.4-6.5 [facility] Comment on above: Performed By: #### C BC #### [facility] [address] [place] [address] Dr. Etienne Fitch Neutrophils/100 WBC (Bld) 77.8 % Critically high 43.0-75.0 [facility] Comment on above: Performed By: #### C BC #### [facility] [address] [place] [address] Dr. Etienne Fitch Platelet mean volume (Bld) [Entitic vol] 11.1 fL Normal 9.5-13.5 [facility] Comment on above: Performed By: #### C BC #### [facility] [address] [place] [address] Dr. Etienne Fitch PLT 371 103/ul Normal 150-450 [facility] Comment on above: Performed By: #### C BC #### [facility] [address] [place] [address] Dr. Etienne Fitch RBC 6.26 106/ul Critically high 4.70-6.10 [facility] Comment on above: Performed By: #### C BC #### [facility] [address] [place] [address] Dr. Etienne Fitch WBC 13.6 103/ul Critically high 4.0-11.0 [facility] Comment on above: Performed By: #### C BC #### [facility] [address] [place] [address] Dr. Etienne Fitch [facility]on [facility]-27 SARS-CoV-2 (COVID-19) RNA KWABENA+probe Ql (Unsp spec) Not detected Normal NOT DETECTED [facility] Comment on above: Result Comment: When diagnostic testing is negative, the possibility of a false negative should be considered in the context of a patient's recent exposures and the presence of clinical signs and symptoms consistent with SARS-CoV-2. This test is not yet approved or cleared by the [place] FDA. When there are no FDA-approved or cleared tests available, and other criteria are met, FDA can make tests available under an emergency access mechanism called an Emergency Use Authorization (EUA). The EUA for this test is supported by the Clinical Nursing Director of Health and Human Service's declaration that circumstances exist to justify the emergency use of in vitro diagnostics for the detection and/or diagnosis of the virus that causes COVID-19. This EUA will remain in effect for the duration of the COVID-19 declaration justifying emergency of IVDs, unless it is terminated or revoked by the FDA (after which the test may no longer be used). Performed By: #### U MICRO, ERUR #### [facility] [address] [place] [address] Dr. Etienne Fitch ER URINE PROFILEon 3 Bilirubin Ql (U) Negative Normal NEGATIVE [facility] Comment on above: Performed By: #### U MICRO, ERUR #### [facility] [address] [place] [address] Dr. Etienne Fitch Clarity (U) CLEAR Normal CLEAR [facility] Comment on above: Performed By: #### U MICRO, ERUR #### [facility] [address] [place] [address] Dr. Etienne Fitch Color (U) LT. YELLOW Normal YELLOW [facility] Comment on above: Performed By: #### U MICRO, ERUR #### [facility] [address] [place] [address] Dr. Etienne Fitch ERUAHD A micrscopic examina tion will be performed if indicated. Normal [facility] Comment on above: Performed By: #### U MICRO, ERUR #### [facility] [address] [place] [address] Dr. Etienne Fitch Glucose Ql (U) Negative Normal NEGATIVE [facility] Comment on above: Performed By: #### U MICRO, ERUR #### [facility] [address] [place] [address] Dr. Etienne Fitch Hemoglobin Ql (U) Negative Normal NEGATIVE [facility] Comment on above: Performed By: #### U MICRO, ERUR #### [facility] [address] [address] [address] Etienne Fitch Ketones Ql (U) Negative Normal NEGATIVE [facility] Comment on above: Performed By: #### U MICRO, ERUR #### [facility] [address] [address] [address] Etienne Fitch LEUKOCYTES Negative Normal NEGATIVE [facility] Comment on above: Performed By: #### U MICRO, ERUR #### [facility] [address] [address] [address] Etienne Fitch Nitrite Ql (U) Negative Normal NEGATIVE [facility] Comment on above: Performed By: #### U MICRO, ERUR #### [facility] [address] [place] [address] Dr. Etienne Fitch pH (U) 6.0 [pH] Normal 5-9 [facility] Comment on above: Performed By: #### U MICRO, ERUR #### [facility] [address] [place] [address] Dr. Etienne Fitch SPEC GRAVITY 1.015 Normal 1.005-<=1.02 5 [facility] Comment on above: Performed By: #### U MICRO, ERUR #### [facility] [address] [address] [address] Etienne Fitch UA PROTEIN Negative Normal NEGATIVE/ TRACE [facility] Comment on above: Performed By: #### U MICRO, ERUR #### [facility] [address] [place] [address] Dr. Etienne Fitch UR MICRO IND NOT INDICATED Normal [facility] Comment on above: Performed By: #### U MICRO, ERUR #### [facility] [address] [place] [address] Dr. Etienne Fitch Urobilinogen Qn (U) 0.2 {Nesha'U}/dL Normal 0.2 - 1.0 [facility] Comment on above: Performed By: #### U MICRO, ERUR #### [facility] [address] [place] [address] Dr. Etienne Fitch INFLUENZA A AND B AGon 12-12 INFLUANEGH SEE BELOW Normal [facility] Comment on above: Result Comment: Nega tive for Flu A protein angiten. Infection due to Flu A cannot be ruled out. Flu A angiten in the sample may be below the detection limit of the test. Performed By: #### I NFLUAB #### [facility] [address] [place] [address] Dr. Etienne F[facility] SEE BELOW Normal [facility] Comment on above: Result Comment: Nega tive for Flu B protein antigen. Infection due to Flu B cannot be ruled out. Flu B antigen in the sample may be below the detection limit of the test. Performed By: #### I NFLUAB #### [facility] [address] [place] [address] Dr. Etienne Fitch INFLUENZA A AG Negative Normal NEGATIVE SEE COMMENT [facility] Comment on above: Performed By: #### I NFLUAB #### [facility] [address] [place] [address] Dr. Etienne Fitch INFLUENZA B AG Negative Normal NEGATIVE SEE COMMENT [facility] Comment on above: Performed By: #### I NFLUAB #### [facility] [address] [place] [address] Dr. Etienne Fitch PROF 14(COMP METB)on 023 Albumin [Mass/Vol] 4.4 g/dL Normal 3.4-5.0 [facility] Comment on above: Performed By: #### U MICRO, ERUR #### [facility] [address] [place] [address] Dr. Etienne Fitch Albumin/Globulin [Mass ratio] 1.0 {ratio} Normal [facility] Comment on above: Performed By: #### U MICRO, ERUR #### [facility] [address] [place] [address] Dr. Etienne Fitch ALP [Catalytic activity/Vol] 107 U/L Normal 46-116 [facility] Comment on above: Performed By: #### U MICRO, ERUR #### [facility] [address] [place] [address] Dr. Etienne Fitch ALT [Catalytic activity/Vol] 23 U/L Normal 16-63 [facility] Comment on above: Performed By: #### U MICRO, ERUR #### [facility] [address] [address] [address] Etienne Fitch Anion gap [Moles/Vol] 19.1 mmol/L Normal [facility] Comment on above: Performed By: #### U MICRO, ERUR #### [facility] [address] [address] [address] Etienne Fitch AST [Catalytic activity/Vol] 24 U/L Normal 15-37 [facility] Comment on above: Performed By: #### U MICRO, ERUR #### [facility] [address] [address] [address] Etienne Fitch Bilirubin [Mass/Vol] 2.2 mg/dL Critically high 0.2-1.0 [facility] Comment on above: Performed By: #### U MICRO, ERUR #### [facility] [address] [address] [address] Etienne Fitch Calcium [Mass/Vol] 9.5 mg/dL Normal 8.5-10.1 [facility] Comment on above: Performed By: #### U MICRO, ERUR #### [facility] [address] [address] [address] Etienne Fitch Chloride [Moles/Vol] 102 mmol/L Normal 98-107 [facility] Comment on above: Performed By: #### U MICRO, ERUR #### [facility] [address] [address] [address] Etienne Fitch CO2 [Moles/Vol] 26.5 mmol/L Normal 21.0-32.0 [facility] Comment on above: Performed By: #### U MICRO, ERUR #### [facility] [address] [address] [address] Etienne Fitch Creatinine [Mass/Vol] 2.27 mg/dL Critically high 0.70-1.30 [facility] Comment on above: Performed By: #### U MICRO, ERUR #### [facility] [address] [address] [address] Etienne Fitch EGFR-AF ETHIOPIAN 38 mL/min/1.73m2 Critically low >=60 [facility] Comment on above: Performed By: #### U MICRO, ERUR #### [facility] [address] [address] [address] Etienne Fitch EGFR-NON AF ETHIOPIAN 32 mL/min/1.73m2 Critically low >=60 [facility] Comment on above: Performed By: #### U MICRO, ERUR #### [facility] [address] [place] [address] Dr. Etienne Fitch Globulin (S) [Mass/Vol] 4.4 g/dL Normal [facility] Comment on above: Performed By: #### U MICRO, ERUR #### [facility] [address] [place] [address] Dr. Etienne Fitch Glucose [Mass/Vol] 136 mg/dL Critically high 74-106 [facility] Comment on above: Performed By: #### U MICRO, ERUR #### [facility] [address] [place] [address] Dr. Etienne Fitch Potassium [Moles/Vol] 4.6 mmol/L Normal 3.5-5.1 [facility] Comment on above: Performed By: #### U MICRO, ERUR #### [facility] [address] [place] [address] Dr. Etienne Fitch Protein [Mass/Vol] 8.8 g/dL Critically high 6.4-8.2 [facility] Comment on above: Performed By: #### U MICRO, ERUR #### [facility] [address] [place] [address] Dr. Etienne Fitch Sodium [Moles/Vol] 143 mmol/L Normal 136-145 [facility] Comment on above: Performed By: #### U MICRO, ERUR #### [facility] [address] [place] [address] Dr. Etienne Fitch Urea nitrogen [Mass/Vol] 89.0 mg/dL Critically high 7.0-18.0 [facility] Comment on above: Performed By: #### U MICRO, ERUR #### [facility] [address] [place] [address] Dr. Etienne Fitch Urea nitrogen/Creatini ne [Mass ratio] 42.0 mg/mg Normal [facility] Comment on above: Performed By: #### U MICRO, ERUR #### [facility] [address] [address] [address] Etienne Fitch PROF CHEM 8 (BAS METB)on Anion gap [Moles/Vol] 12.4 mmol/L Normal [facility] Comment on above: Performed By: #### U MICRO, ERUR #### [facility] [address] [place] [address] Dr. Etienne Fitch Calcium [Mass/Vol] 8.9 mg/dL Normal 8.5-10.1 [facility] Comment on above: Performed By: #### U MICRO, ERUR #### [facility] [address] [place] [address] Dr. Etienne Fitch Chloride [Moles/Vol] 110 mmol/L Critically high 98-107 [facility] Comment on above: Performed By: #### U MICRO, ERUR #### [facility] [address] [address] [address] Etienne Fitch CO2 [Moles/Vol] 29.6 mmol/L Normal 21.0-32.0 [facility] Comment on above: Performed By: #### U MICRO, ERUR #### [facility] [address] [address] [address] Etienne Fitch Creatinine [Mass/Vol] 2.04 mg/dL Critically high 0.70-1.30 [facility] Comment on above: Performed By: #### U MICRO, ERUR #### [facility] [address] [address] [address] Etienne Fitch EGFR-AF ETHIOPIAN 43 mL/min/1.73m2 Critically low >=60 [facility] Comment on above: Performed By: #### U MICRO, ERUR #### [facility] [address] [address] [address] Etienne Fitch EGFR-NON AF ETHIOPIAN 36 mL/min/1.73m2 Critically low >=60 [facility] Comment on above: Performed By: #### U MICRO, ERUR #### [facility] [address] [address] [address] Etienne Fitch Glucose [Mass/Vol] 112 mg/dL Critically high 74-106 [facility] Comment on above: Performed By: #### U MICRO, ERUR #### [facility] [address] [address] [address] Etienne Fitch Potassium [Moles/Vol] 5.0 mmol/L Normal 3.5-5.1 [facility] Comment on above: Performed By: #### U MICRO, ERUR #### [facility] [address] [address] [address] Etienne Fitch Sodium [Moles/Vol] 147 mmol/L Critically high 136-145 [facility] Comment on above: Performed By: #### U MICRO, ERUR #### [facility] [address] [address] [address] Etienne Fitch Urea nitrogen [Mass/Vol] 79.0 mg/dL Critically high 7.0-18.0 [facility] Comment on above: Performed By: #### U MICRO, ERUR #### [facility] [address] [address] [address] Etienne Fitch Urea nitrogen/Creatini ne [Mass ratio] 38.7 mg/mg Normal [facility] Comment on above: Performed By: #### U MICRO, ERUR #### [facility] [address] [address] [address] Etienne Fitch Ambulatory Visit Summaryon 1 Ambulatory Visit Summary GERALDINE RICCI :1980 Visit Date:08/07/2022 Ambulatory Visit Instructions Your Diagnosis Epigastric pain Nausea & vomiting Your Care Team Attending Physician - SAMIR MOCK, Anupam Bob Primary Care Physician - RANJANA TRAYLOR MD This Is Your Medications List omeprazole (Prilosec OTC) Procedures Performed Colonoscopy (07/24/2022), EGD - Esophagogastroduodenoscopy (07/24/2022). Medications What How Much When Instructions Unchanged omeprazole (Prilosec OTC) 1 Tablets By Mouth Every day Allergies No Known Allergies No Known Medication Allergies Problems Ongoing - Any problem that you are currently receiving treatment for. BMI 22.0-22.9, adult Cholelithiasis Chromosomal microduplication Chronic alcohol abuse Epigastric pain Gastritis Hyperbilirubinemia Nausea & vomiting RLQ abdominal pain Normal [facility] General Surgery Office/Clini c Noteon 08-07-2022 General Surgery Office/Clinic Note Chief Complaint post operative follow up HPI Staff 14 day post operative follow up post colonoscopy and EGD with antral biopsy. Reports abdominal pain, nausea and vomiting have resolved. History of Present Illness s/p EGD/colonoscopy; mild gastritis, bx negative for H pylori; colonoscopy with redundant colon with spasm; doing well, no further abd pain, no N/V. Review of Systems ROS - Provider Constitutional: no fever, no sweats, no weight loss. Eyes: no glasses, no blurred vision, no visual loss. ENMT: no dentures, no hoarseness, no swallowing difficulties, no hearing loss, no ear infection(s), no nose bleeds. Cardiovascular: normal blood pressure, no chest pain, regular heartbeat, no heart murmur. Respiratory: no shortness of breath, no cough, no asthma, no wheezing. Gastrointestinal: no nausea, no vomiting, no diarrhea, no constipation, no blood in stool, no change in bowel habits, no abdominal pain, no hepatitis. Genitourinary: no kidney stones, no urine infection, no dysuria. Musculoskeletal: no pain, no weakness. Skin: no changing moles, no rash, no skin lumps. Neurologic: no seizures, no epilepsy, no headache. Psychiatric: no emotional or psychiatric problem. Heme/Lymph: no bleeding problems, no anemia, no blood clots, no transfusions. Allergy/Immunologic: no swollen lymph nodes/glands, no IV drug abuse. Other: Additional ROS info: Except as noted in the above Review of Systems and in the History of Present Illness, all other systems have been reviewed and are negative or noncontributory. Assessment/Plan 1. Epigastric pain (R10.13: Epigastric pain) resolved; recommend high fiber diet with daily fiber supplement; call with problems/questions. 2. Nausea & vomiting (R11.2: Nausea with vomiting, unspecified) see # 1 Follow-up No qualifying data available Problem List/Past Medical History Ongoing BMI 22.0-22.9, adult Cholelithiasis Chromosomal microduplication Chronic alcohol abuse Epigastric pain Gastritis Hyperbilirubinemia Nausea & vomiting RLQ abdominal pain Historical No qualifying data Procedure/Surgical History Colonoscopy (07/24/2022), EGD - Esophagogastroduodenoscopy (07/24/2022). Medications Prilosec OTC, 1 tab(s), Oral, Daily Allergies No Known Allergies No Known Medication Allergies Social History Alcohol Past, Liquor, Daily, Started age 41 Years. Stopped age 41 Years., 07/02/2022 Substance Abuse Current, Marijuana, Daily, 06/27/2022 Tobacco Former smoker, quit more than 30 days ago Tobacco Use:. Smokeless tobacco user within last 30 days Smokeless Tobacco Use:. Cigarettes, Vaping, 1.5 per day. Started age 16.0 Years. Yes, 07/02/2022 Family History Brain tumor: Father. Heart disease: Mother. TIA: Mother. Normal [facility] Comment on above: Result Comment: Elec tronically Signed By: SAMIR MOCK, Anupam Thompson\Date and Time Signed: 08/07/22 13:24 EDT Reminderson 08-07-2022 Reminders - From: Harika Simmons LPN To: N - Clinical; Sent: 08/07/2022 13:07:35 EDT Show up: 06/23/2032 07:00:00 EDT Subject: colonoscopy recall Due Date/Time: 07/24/2032 07:00:00 EDT Reminder/Recall Patient is due for screening colonoscopy 07/24/2032. Normal [facility] Pathology Noteon 07-29-2022 Pathology Note [id number]#1.00CD:127 Normal [facility] Outside Colonoscopyon 2021 Outside Colonoscopy [id number]#1.00CD:127 Normal [facility] RAD - MRI Reporton RAD - MRI Report [id number]#1.00CD:127 Normal [facility] Lab Reportson 07-22-2022 Lab Reports [id number]#1.00CD:127 Normal [facility] RAD - MRI Reporton RAD - MRI Report [id number]#1.00CD:127 Normal [facility] Covid-19 PCR (CVDTB)on 06-28 SARS-CoV-2 (COVID-19) RNA KWABENA+probe Ql (Unsp spec) Not detected Normal NOT DETECTED [facility] Comment on above: Result Comment: This test is not yet approved or cleared by the [place] FDA. When there are no FDA-approved or cleared tests available, and other criteria are met, FDA can make tests available under an emergency access mechanism called an Emergency Use Authorization (EUA). The EUA for this test is supported by the Clinical Nursing Director of Health and Human Service's (HHS's) declaration that circumstances exist to justify the emergency use of in vitro diagnostics for the detection and/or diagnosis of the virus that causes COVID-19. This EUA will remain in effect (meaning this test can be used) for the duration of the COVID-19 declaration justifying emergency of IVDs, unless it is terminated or revoked by FDA (after which the test may no longer be used). When diagnostic testing is negative, the possibility of a false negative should be considered in the context of a patient's recent exposures and the presence of clinical signs and symptoms consistent with SARS-CoV-2. Performed By: #### [facility] #### [facility] [address] [place] [address] Dr. Etienne Fitch MRI ABDOMEN WO CONon 022 MRI ABDOMEN WO CON EXAMINATION: MRI ABDOMEN WO CON HISTORY: Cholelithiasis without obstruction COMPARISON: No relevant comparison available. TECHNIQUE: MRCP was performed without contrast for evaluation of the common bile duct and pancreatic duct. FINDINGS: GALLBLADDER: No abnormal distention, wall thickening, mass, or free fluid. BILE DUCTS: No stricture, abnormal dilation, or filling defect. PANCREAS: No stricture, abnormal dilation, fluid collection, mass, or accessory duct. OTHER: Limited evaluation with MRCP images not clearly demonstrating the biliary tree. IMPRESSION: No evidence of biliary filling defect, mass, stricture or dilation Electronically authenticated by: ALEXA HOWARD Date: 2022-07-19 07:49 Normal [facility] Consent for Procedure/Surger yon 07-04-2022 Consent for Procedure/Surgery [id number]#1.00CD:127 Normal [facility] Ambulatory Visit Summaryon 0 07-02-2022 Ambulatory Visit Summary GERALDINE RICCI :1980 Visit Date:07/02/2022 Ambulatory Visit Instructions Your Diagnosis RLQ abdominal pain Nausea & vomiting Cholelithiasis Your Care Team Attending Physician - SAMIR MOCK, Anupam Bob Primary Care Physician - KYMBERLY MOCK, RANJANA This Is Your Medications List Contact prescribing physician if questions or concerns omeprazole (Prilosec OTC) Procedures Performed None. Discharge Vitals Heart Rate (Peripheral) 72 Respiratory Rate 16 Blood Pressure 120/74 Height 182.8 cm Height 182.8 cm Weight 74 kg Weight 74.0 kg BMI 22.15 Medications What How Much When Instructions Unchanged omeprazole (Prilosec OTC) 1 Tablets By Mouth Every day Contact prescribing physician if questions or concerns Allergies No Known Allergies No Known Medication Allergies Problems Ongoing - Any problem that you are currently receiving treatment for. BMI 22.0-22.9, adult Cholelithiasis Chromosomal microduplication Chronic alcohol abuse Epigastric pain Gastritis Nausea & vomiting RLQ abdominal pain Normal [facility] ED Note-Physicianon 07-02-20 ED Note-Physician [id number]#1.00CD:127 Normal [facility] RAD - MISCon 06-27-2022 RAD - MISC [id number]#1.00CD:127 Normal [facility] AMYLASEon 06-15-2022 Amylase [Catalytic activity/Vol] 47 U/L Normal 25-115 [facility] Comment on above: Performed By: #### L ACT #### [facility] [address] [place] [address] Dr. Etienne Fitch CBC AUTO DIFFon 06-15-2022 BASO # 0.1 103/ul Normal 0.0-0.1 [facility] Comment on above: Performed By: #### U MICRO, ERUR #### [facility] [address] [place] [address] Dr. Etienne Fitch Basophils/100 WBC (Bld) 0.5 % Normal 0.2-2.0 [facility] Comment on above: Performed By: #### U MICRO, ERUR #### [facility] [address] [place] [address] Dr. Etienne Fitch EO # 0.0 103/ul Normal 0.0-0.7 [facility] Comment on above: Performed By: #### U MICRO, ERUR #### [facility] [address] [place] [address] Dr. Etienne Fitch Eosinophils/100 WBC (Bld) 0.1 % Critically low 0.9-7.0 [facility] Comment on above: Performed By: #### U MICRO, ERUR #### [facility] [address] [place] [address] Dr. Etienne Fitch Erythrocyte distribution width (RBC) [Ratio] 11.9 % Normal 11.0-15.0 [facility] Comment on above: Performed By: #### U MICRO, ERUR #### [facility] [address] [place] [address] Dr. Etienne Fitch Hematocrit (Bld) [Volume fraction] 48.4 % Normal 42.0-54.0 [facility] Comment on above: Performed By: #### U MICRO, ERUR #### [facility] [address] [place] [address] Dr. Etienne Fitch Hemoglobin (Bld) [Mass/Vol] 16.6 g/dL Normal 14.0-18.0 [facility] Comment on above: Performed By: #### U MICRO, ERUR #### [facility] [address] [place] [address] Dr. Etienne Fitch IG # 0.06 10e3/ul Critically high 0.00-0.03 [facility] Comment on above: Performed By: #### U MICRO, ERUR #### [facility] [address] [place] [address] Dr. Etienne Fitch IG % 0.4 % Normal 0.0-0.5 [facility] Comment on above: Performed By: #### U MICRO, ERUR #### [facility] [address] [place] [address] Dr. Etienne Fitch LYMPH # 0.8 103/ul Critically low 1.2-3.8 [facility] Comment on above: Performed By: #### U MICRO, ERUR #### [facility] [address] [place] [address] Dr. Etienne Fitch Lymphocytes/100 WBC (Bld) 5.0 % Critically low 20.5-60.0 [facility] Comment on above: Performed By: #### U MICRO, ERUR #### [facility] [address] [place] [address] Dr. Etienne Fitch MANUAL DIFF REQ NO Normal [facility] Comment on above: Performed By: #### U MICRO, ERUR #### [facility] [address] [place] [address] Dr. Etienne Fitch MCH (RBC) [Entitic mass] 30.9 pg Normal 25.9-34.0 [facility] Comment on above: Performed By: #### U MICRO, ERUR #### [facility] [address] [place] [address] Dr. Etienne Fitch MCHC (RBC) [Mass/Vol] 34.3 g/dL Normal 29.9-35.2 [facility] Comment on above: Performed By: #### U MICRO, ERUR #### [facility] [address] [place] [address] Dr. Etienne Fitch MCV (RBC) [Entitic vol] 90.1 fL Normal 80.0-94.0 [facility] Comment on above: Performed By: #### U MICRO, ERUR #### [facility] [address] [place] [address] Dr. Etienne Fitch MONO # 0.8 103/ul Normal 0.3-0.8 [facility] Comment on above: Performed By: #### U MICRO, ERUR #### [facility] [address] [place] [address] Dr. Etienne Fitch Monocytes/100 WBC (Bld) 5.3 % Normal 1.7-12.0 [facility] Comment on above: Performed By: #### U MICRO, ERUR #### [facility] [address] [place] [address] Dr. Etienne Fitch NEUT # 13.9 103/ul Critically high 1.4-6.5 [facility] Comment on above: Performed By: #### U MICRO, ERUR #### [facility] [address] [place] [address] Dr. Etienne Fitch Neutrophils/100 WBC (Bld) 88.7 % Critically high 43.0-75.0 [facility] Comment on above: Performed By: #### U MICRO, ERUR #### [facility] [address] [place] [address] Dr. Etienne Fitch Platelet mean volume (Bld) [Entitic vol] 10.9 fL Normal 9.5-13.5 [facility] Comment on above: Performed By: #### U MICRO, ERUR #### [facility] [address] [place] [address] Dr. Etienne Fitch PLT 424 103/ul Normal 150-450 [facility] Comment on above: Performed By: #### U MICRO, ERUR #### [facility] [address] [place] [address] Dr. Etienne Fitch RBC 5.37 106/ul Normal 4.70-6.10 [facility] Comment on above: Performed By: #### U MICRO, ERUR #### [facility] [address] [place] [address] Dr. Etienne Fitch WBC 15.7 103/ul Critically high 4.0-11.0 [facility] Comment on above: Performed By: #### U MICRO, ERUR #### [facility] [address] [place], [place] [id number] Dr. Etienne Fitch DRUG SCREEN RAPID (URINE)on 06-15-2022 AMP Negative Normal NEGATIVE [facility] Comment on above: Performed By: #### D RUGRPD #### [facility] [address] [place] [address] Dr. Etienne Fitch BAR Negative Normal NEGATIVE [facility] Comment on above: Performed By: #### D RUGRPD #### [facility] [address] [place] [address] Dr. Etienne Fitch BUP Negative Normal NEGATIVE [facility] Comment on above: Performed By: #### D RUGRPD #### [facility] [address] [place] [address] Dr. Etienne Fitch BZO Negative Normal NEGATIVE [facility] Comment on above: Performed By: #### D RUGRPD #### [facility] [address] [place] [address] Dr. Etienne Fitch MILTON Negative Normal NEGATIVE [facility] Comment on above: Performed By: #### D RUGRPD #### [facility] [address] [place] [address] Dr. Etienne Fitch CUT-OFFS SEE BELOW Normal [facility] Comment on above: Result Comment: AMP (Amphetamine): 500ng/mL, BAR (Barbituates): 200 ng/mL, BZO (Benzodiazepines): 150 ng/mL, BUP (Buprenorphine): 10 ng/mL, MILTON (Cocaine): 150 ng/mL, mAMP (Methamphetamine): 500 ng/mL, MTD (Methadone): 200 ng/mL, OPI (Opiates): 100 ng/mL, OXY (Oxycodone): 100 ng/mL, PCP (Phencyclidine): 25 ng/mL, PPX (Propoxyphene): 300 ng/mL, THC (Cannabinoids): 50 ng/mL, TCA (Trycyclic Antidepressants): 300 ng/mL Performed By: #### D RUGRPD #### [facility] [address] [place] [address] Dr. Etienne Fitch DRUG CUT HEADER DRUG CLASS TEST SYST EM CUT-OFF CONCENTRATIONS ARE FOLLOWS: Normal [facility] Comment on above: Performed By: #### D RUGRPD #### [facility] [address] [address] [address] Etienne Fitch mAMP Negative Normal NEGATIVE [facility] Comment on above: Performed By: #### D RUGRPD #### [facility] [address] [address] [address] Etienne Fitch MTD Negative Normal NEGATIVE [facility] Comment on above: Performed By: #### D RUGRPD #### [facility] [address] [address] [address] Etienne Fitch OPI Negative Normal NEGATIVE [facility] Comment on above: Performed By: #### D RUGRPD #### [facility] [address] [place] [address] Dr. Etienne Fitch OXY Negative Normal NEGATIVE [facility] Comment on above: Performed By: #### D RUGRPD #### [facility] [address] [place] [address] Dr. Etienne Fitch PCP Negative Normal NEGATIVE [facility] Comment on above: Performed By: #### D RUGRPD #### [facility] [address] [place] [address] Dr. Etienne Fitch PPX Negative Normal NEGATIVE [facility] Comment on above: Performed By: #### D RUGRPD #### [facility] [address] [place] [address] Dr. Etienne Fitch TCA Negative Normal NEGATIVE [facility] Comment on above: Performed By: #### D RUGRPD #### [facility] [address] [address] [address] Etienne Fitch THC Positive Abnormal NEGATIVE [facility] Comment on above: Performed By: #### D RUGRPD #### [facility] [address] [place] [address] Dr. Etienne Fitch ER URINE PROFILEon 2 Bilirubin Ql (U) MODERATE Abnormal NEGATIVE [facility] Comment on above: Performed By: #### U MICRO, ERUR #### [facility] Laboratory [address] [place] [address] Dr. Etienne Fitch Clarity (U) CLEAR Normal CLEAR [facility] Comment on above: Performed By: #### U MICRO, ERUR #### [facility] [address] [address] [address] Etienne Fitch Color (U) DK. ORANGE Abnormal YELLOW [facility] Comment on above: Performed By: #### U MICRO, ERUR #### [facility] [address] [place] [address] Dr. Etienne Fitch ERUAHD A micrscopic examina tion will be performed if indicated. Normal [facility] Comment on above: Performed By: #### U MICRO, ERUR #### [facility] [address] [place] [address] Dr. Etienne Fitch Glucose Ql (U) Negative Normal NEGATIVE [facility] Comment on above: Performed By: #### U MICRO, ERUR #### [facility] [address] [place] [address] Dr. Etienne Fitch Hemoglobin Ql (U) Negative Normal NEGATIVE [facility] Comment on above: Performed By: #### U MICRO, ERUR #### [facility] [address] [place] [address] Dr. Etienne Fitch Ketones Ql (U) 40 mg/dl Abnormal NEGATIVE [facility] Comment on above: Performed By: #### U MICRO, ERUR #### [facility] [address] [place] [address] Dr. Etienne Fitch LEUKOCYTES Negative Normal NEGATIVE [facility] Comment on above: Performed By: #### U MICRO, ERUR #### [facility] [address] [address] [address] Etienne Fitch Nitrite Ql (U) Negative Normal NEGATIVE [facility] Comment on above: Performed By: #### U MICRO, ERUR #### [facility] [address] [place] [address] Dr. Etienne Fitch pH (U) 6.0 [pH] Normal 5-9 [facility] Comment on above: Performed By: #### U MICRO, ERUR #### [facility] [address] [place] [address] Dr. Etienne Fitch Protein (U) [Mass/Vol] 100 mg/dL Abnormal NEGATIVE/ TRACE [facility] Comment on above: Performed By: #### U MICRO, ERUR #### [facility] [address] [place] [address] Dr. Etienne Fitch SPEC GRAVITY >=1.030 Abnormal 1.005-<=1.02 5 [facility] Comment on above: Performed By: #### U MICRO, ERUR #### [facility] [address] [place] [address] Dr. Etienne Fitch UR MICRO IND INDICATED Normal [facility] Comment on above: Performed By: #### U MICRO, ERUR #### [facility] [address] [place] [address] Dr. Etienne Fitch Urobilinogen Qn (U) 1.0 {Nesha'U}/dL Normal 0.2 - 1.0 [facility] Comment on above: Performed By: #### U MICRO, ERUR #### [facility] [address] [place] [address] Dr. Etienne Fitch ETHANOL (BLD ALC)on 06-15-20 ALC NOTE NOTE: 80 mg/dl is th e legal limit for a blood alcohol level Normal [facility] Comment on above: Performed By: #### E TH #### [facility] [address] [place] [address] Dr. Etienne Fitch Ethanol [Mass/Vol] mg/dL Normal [facility] Comment on above: Performed By: #### E TH #### [facility] [address] [place] [address] Dr. Etienne Fitch LIPASEon 06-15-2022 Lipase [Catalytic activity/Vol] 32.0 U/L Critically low 73.0-393.0 [facility] Comment on above: Performed By: #### L ACT #### [facility] [address] [place] [address] Dr. Etienne Fitch PROF 14(COMP METB)on Albumin [Mass/Vol] 5.4 g/dL Critically high 3.4-5.0 [facility] Comment on above: Performed By: #### L ACT #### [facility] [address] [place] [address] Dr. Etienne Fitch Albumin/Globulin [Mass ratio] 1.4 {ratio} Normal [facility] Comment on above: Performed By: #### L ACT #### [facility] [address] [place] [address] Dr. Etienne Fitch ALP [Catalytic activity/Vol] 93 U/L Normal 46-116 [facility] Comment on above: Performed By: #### L ACT #### [facility] [address] [place] [address] Dr. Etienne Fitch ALT [Catalytic activity/Vol] 19 U/L Normal 16-63 [facility] Comment on above: Performed By: #### L ACT #### [facility] [address] [place] [address] Dr. Etienne Fitch Anion gap [Moles/Vol] 18.2 mmol/L Normal [facility] Comment on above: Performed By: #### L ACT #### [facility] [address] [place] [address] Dr. Etienne Fitch AST [Catalytic activity/Vol] 23 U/L Normal 15-37 [facility] Comment on above: Performed By: #### L ACT #### [facility] [address] [place] [address] Dr. Etienne Fitch Bilirubin [Mass/Vol] 3.0 mg/dL Critically high 0.2-1.0 [facility] Comment on above: Performed By: #### L ACT #### [facility] [address] [place] [address] Dr. Etienne Fitch Calcium [Mass/Vol] 11.2 mg/dL Critically high 8.5-10.1 [facility] Comment on above: Performed By: #### L ACT #### [facility] [address] [place] [address] Dr. Etienne Fitch Chloride [Moles/Vol] 102 mmol/L Normal 98-107 [facility] Comment on above: Performed By: #### L ACT #### [facility] [address] [place] [address] Dr. Etienne Fitch CO2 [Moles/Vol] 27.0 mmol/L Normal 21.0-32.0 [facility] Comment on above: Performed By: #### L ACT #### [facility] [address] [address] [address] Etienne Fitch Creatinine [Mass/Vol] 1.49 mg/dL Critically high 0.70-1.30 [facility] Comment on above: Performed By: #### L ACT #### [facility] [address] [address] [address] Etienne Fitch EGFR-AF ETHIOPIAN >60 Normal >=60 [facility] Comment on above: Performed By: #### L ACT #### [facility] [address] [address] [address] Etienne Fitch EGFR-NON AF ETHIOPIAN 51 mL/min/1.73m2 Critically low >=60 [facility] Comment on above: Performed By: #### L ACT #### [facility] [address] [address] [address] Etienne Fitch Globulin (S) [Mass/Vol] 4.0 g/dL Normal [facility] Comment on above: Performed By: #### L ACT #### [facility] [address] [address] [address] Etienne Fitch Glucose [Mass/Vol] 183 mg/dL Critically high 74-106 [facility] Comment on above: Performed By: #### L ACT #### [facility] [address] [address] [address] Etienne Fitch Potassium [Moles/Vol] 4.2 mmol/L Normal 3.5-5.1 [facility] Comment on above: Performed By: #### L ACT #### [facility] [address] [address] [address] Etienne Fitch Protein [Mass/Vol] 9.4 g/dL Critically high 6.4-8.2 [facility] Comment on above: Performed By: #### L ACT #### [facility] [address] [address] [address] Etienne Fitch Sodium [Moles/Vol] 143 mmol/L Normal 136-145 [facility] Comment on above: Performed By: #### L ACT #### [facility] [address] [address] [address] Etienne Fitch Urea nitrogen [Mass/Vol] 19.0 mg/dL Critically high 7.0-18.0 [facility] Comment on above: Performed By: #### L ACT #### [facility] [address] [address] [address] Etienne Fitch Urea nitrogen/Creatini ne [Mass ratio] 12.8 mg/mg Normal [facility] Comment on above: Performed By: #### L ACT #### [facility] [address] [address] [address] Etienne Fitch URINE MICROSCOPIC ONLYon BACTERIA TRACE Abnormal NONE SEEN [facility] Comment on above: Performed By: #### U MICRO, ERUR #### [facility] [address] [place] [address] Dr. Etienne Fitch Bacteria identified Cx Nom (U) NOT INDICATED Normal [facility] Comment on above: Performed By: #### U MICRO, ERUR #### [facility] [address] [place] [address] Dr. Etienne Fitch CAST SEEN Abnormal NONE SEEN [facility] Comment on above: Performed By: #### U MICRO, ERUR #### [facility] [address] [place] [address] Dr. Etienne Fitch Crystals LM Nom (Urine sed) NONE SEEN Normal NONE SEEN [facility] Comment on above: Performed By: #### U MICRO, ERUR #### [facility] [address] [place] [address] Dr. Etienne Fitch Epithelial cells LM Ql (Urine sed) NONE SEEN Normal NONE SEEN /RARE [facility] Comment on above: Performed By: #### U MICRO, ERUR #### [facility] [address] [place] [address] Dr. Etienne Fitch HYALINE CAST MODERATE Normal [facility] Comment on above: Performed By: #### U MICRO, ERUR #### [facility] [address] [place] [address] Dr. Etienne Fitch MUCOUS MODERATE Abnormal NONE SEEN [facility] Comment on above: Performed By: #### U MICRO, ERUR #### [facility] [address] [address] [address] Etienne Fitch RBC 0-2 Normal 0-2 [facility] Comment on above: Performed By: #### U MICRO, ERUR #### [facility] [address] [address] [address] Etienne Fitch WBC NONE SEEN Normal NONE SEEN [facility] Comment on above: Performed By: #### U MICRO, ERUR #### [facility] [address] [address] [address] Etienne Fitch XR ABD FLAT UP_PA Ramiro 06-15 XR ABD FLAT UP_PA CH EXAM: XR ABD FLAT UP_PA CH INDICATION: Right lower quadrant pain for 3 months COMPARISON: CT abdomen pelvis 04/01/2022. TECHNIQUE: Supine and upright AP views of the abdomen FINDINGS: Paucity of bowel gas with otherwise nonobstructive bowel gas pattern. No evidence of free intra-abdominal air. No pneumatosis or portal venous gas. Unremarkable visceral margins. No suspicious calcifications. No acute osseous abnormality. Normal cardiac mediastinal contours. Clear lungs. No pleural effusion or pneumothorax. IMPRESSION: No radiographic evidence of acute process in the chest or abdomen. Electronically authenticated by: SHILPI THAPA Date: 2022-06-15 09:44 Normal [facility] ED Note-Physicianon 04-03-20 ED Note-Physician [id number] Normal [facility] CBC W MANUAL DIFFon 04-02-20 ATYPICAL LYMPH # Normal [facility] Comment on above: Performed By: #### U MICRO, ERUR #### [facility] [address] [place] [address] Dr. Etienne Fitch ATYPICAL LYMPH % Normal [facility] Comment on above: Performed By: #### U MICRO, ERUR #### [facility] [address] [address] [address] Etienne Fitch BAND # Normal 0.0-0.3 [facility] Comment on above: Performed By: #### U MICRO, ERUR #### [facility] [address] [place] [address] Dr. Etienne Fitch BAND % Normal 0-5 [facility] Comment on above: Performed By: #### U MICRO, ERUR #### [facility] [address] [place] [address] Dr. Etienne Fitch BASOM # 0.00 103/ul Normal 0.00-0.10 [facility] Comment on above: Performed By: #### U MICRO, ERUR #### [facility] [address] [place] [address] Dr. Etienne Fitch BASOM % 0.0 % Critically low 0.2-2.0 [facility] Comment on above: Performed By: #### U MICRO, ERUR #### [facility] [address] [place] [address] Dr. Etienne Fitch BLAST # Normal [facility] Comment on above: Performed By: #### U MICRO, ERUR #### [facility] [address] [place] [address] Dr. Etienne Fitch BLAST % Normal [facility] Comment on above: Performed By: #### U MICRO, ERUR #### [facility] [address] [place] [address] Dr. Etienne Fitch CORRECTED WBC Normal 4.0-11.0 [facility] Comment on above: Performed By: #### U MICRO, ERUR #### [facility] [address] [place] [address] Dr. Etienne Fitch EOS # 0.00 103/ul Normal 0.00-0.70 [facility] Comment on above: Performed By: #### U MICRO, ERUR #### [facility] [address] [place] [address] Dr. Etienne Fitch EOS% 0.0 % Critically low 0.9-7.0 [facility] Comment on above: Performed By: #### U MICRO, ERUR #### [facility] [address] [place] [address] Dr. Etienne Fitch HCT 43.5 % Normal 42.0-54.0 [facility] Comment on above: Performed By: #### U MICRO, ERUR #### [facility] [address] [place] [address] Dr. Etienne Fitch HGB 14.3 g/dl Normal 14.0-18.0 [facility] Comment on above: Result Comment: gett ing fluids Performed By: #### U MICRO, ERUR #### [facility] [address] [place] [address] Dr. Etienne Fitch LYMPHM # 3.30 103/ul Normal 1.20-3.80 [facility] Comment on above: Performed By: #### U MICRO, ERUR #### [facility] [address] [place] [address] Dr. Etienne Fitch LYMPHM% 20.0 % Critically low 20.5-60.0 [facility] Comment on above: Performed By: #### U MICRO, ERUR #### [facility] [address] [place] [address] Dr. Etienne Fitch MCH 30.9 pg Normal 25.9-34.0 [facility] Comment on above: Performed By: #### U MICRO, ERUR #### [facility] [address] [place] [address] Dr. Etienne Fitch MCHC 32.9 g/dl Normal 29.9-35.2 [facility] Comment on above: Performed By: #### U MICRO, ERUR #### [facility] [address] [place] [address] Dr. Etienne Fitch MCV 94.0 fL Normal 80.0-94.0 [facility] Comment on above: Performed By: #### U MICRO, ERUR #### [facility] [address] [place] [address] Dr. Etienne Fitch METAMYELOCYTE # Normal [facility] Comment on above: Performed By: #### U MICRO, ERUR #### [facility] [address] [place] [address] Dr. Etienne Fitch METAMYELOCYTE % Normal [facility] Comment on above: Performed By: #### U MICRO, ERUR #### [facility] [address] [address] [address] Etienne Fitch MONOM# 2.31 103/ul Critically high 0.30-0.80 [facility] Comment on above: Performed By: #### U MICRO, ERUR #### [facility] [address] [place] [address] Dr. Etienne Fitch MONOM% 14.0 % Critically high 1.7-12.0 [facility] Comment on above: Performed By: #### U MICRO, ERUR #### [facility] [address] [place] [address] Dr. Etienne Fitch MPV 10.5 fL Normal 9.5-13.5 [facility] Comment on above: Performed By: #### U MICRO, ERUR #### [facility] [address] [place] [address] Dr. Etienne Fitch MYELOCYTE # Normal [facility] Comment on above: Performed By: #### U MICRO, ERUR #### [facility] [address] [place] [address] Dr. Etienne Fitch MYELOCYTE % Normal [facility] Comment on above: Performed By: #### U MICRO, ERUR #### [facility] [address] [place] [address] Dr. Etienne Fitch NRBC Normal [facility] Comment on above: Performed By: #### U MICRO, ERUR #### [facility] [address] [place] [address] Dr. Etienne Fitch PLT 285 103/ul Normal 150-450 [facility] Comment on above: Performed By: #### U MICRO, ERUR #### [facility] [address] [place] [address] Dr. Etienne Fitch RBC 4.63 106/ul Critically low 4.70-6.10 [facility] Comment on above: Performed By: #### U MICRO, ERUR #### [facility] [address] [place] [address] Dr. Etienne Fitch RDW 12.8 % Normal 11.0-15.0 [facility] Comment on above: Performed By: #### U MICRO, ERUR #### [facility] [address] [address] [address] Etienne Fitch SEG # 10.89 103/ul Critically high 1.40-6.50 [facility] Comment on above: Performed By: #### U MICRO, ERUR #### [facility] [address] [address] [address] Etienne Fitch SEG % 66.0 % Normal 43.0-75.0 [facility] Comment on above: Performed By: #### U MICRO, ERUR #### [facility] [address] [place] [address] Dr. Etienne Fitch TOXIC GRANULATION 1+ Normal [facility] Comment on above: Performed By: #### U MICRO, ERUR #### [facility] [address] [place] [address] Dr. Etienne Fitch WBC 16.5 103/ul Critically high 4.0-11.0 [facility] Comment on above: Performed By: #### U MICRO, ERUR #### [facility] [address] [place] [address] Dr. Etienne Fitch PROF 14(COMP METB)on 022 Albumin [Mass/Vol] 3.2 g/dL Critically low 3.4-5.0 [facility] Comment on above: Performed By: #### L ACT #### [facility] [address] [place] [address] Dr. Etienne Fitch Albumin/Globulin [Mass ratio] 1.1 {ratio} Normal [facility] Comment on above: Performed By: #### L ACT #### [facility] [address] [place] [address] Dr. Etienne Fitch ALP [Catalytic activity/Vol] 55 U/L Normal 46-116 [facility] Comment on above: Performed By: #### L ACT #### [facility] [address] [place] [address] Dr. Etienne Fitch ALT [Catalytic activity/Vol] 28 U/L Normal 16-63 [facility] Comment on above: Performed By: #### L ACT #### [facility] [address] [address] [address] Etienne Fitch Anion gap [Moles/Vol] 12.6 mmol/L Normal [facility] Comment on above: Performed By: #### L ACT #### [facility] [address] [address] [address] Etienne Fitch AST [Catalytic activity/Vol] 20 U/L Normal 15-37 [facility] Comment on above: Performed By: #### L ACT #### [facility] [address] [address] [address] Etienne Fitch Bilirubin [Mass/Vol] 2.8 mg/dL Critically high 0.2-1.0 [facility] Comment on above: Performed By: #### L ACT #### [facility] [address] [place] [address] Dr. Etienne Fitch Calcium [Mass/Vol] 7.8 mg/dL Critically low 8.5-10.1 [facility] Comment on above: Performed By: #### L ACT #### [facility] [address] [address] [address] Etienne Fitch Chloride [Moles/Vol] 104 mmol/L Normal 98-107 [facility] Comment on above: Performed By: #### L ACT #### [facility] [address] [address] [address] Etienne Fitch CO2 [Moles/Vol] 28.0 mmol/L Normal 21.0-32.0 [facility] Comment on above: Performed By: #### L ACT #### [facility] [address] [address] [address] Etienne Fitch Creatinine [Mass/Vol] 0.97 mg/dL Normal 0.70-1.30 [facility] Comment on above: Performed By: #### L ACT #### [facility] [address] [place] [address] Dr. Etienne Fitch EGFR-AF ETHIOPIAN >60 Normal >=60 [facility] Comment on above: Performed By: #### L ACT #### [facility] [address] [address] [address] Etienne Fitch EGFR-NON AF ETHIOPIAN >60 Normal >=60 [facility] Comment on above: Performed By: #### L ACT #### [facility] [address] [address] [address] Etienne Fitch Globulin (S) [Mass/Vol] 2.9 g/dL Normal [facility] Comment on above: Performed By: #### L ACT #### [facility] [address] [address] [address] Etienne Fitch Glucose [Mass/Vol] 108 mg/dL Critically high 74-106 [facility] Comment on above: Performed By: #### L ACT #### [facility] [address] [place] [address] Dr. Etienne Fitch Potassium [Moles/Vol] 3.6 mmol/L Normal 3.5-5.1 [facility] Comment on above: Performed By: #### L ACT #### [facility] [address] [place] [address] Dr. Etienne Fitch Protein [Mass/Vol] 6.1 g/dL Critically low 6.4-8.2 [facility] Comment on above: Performed By: #### L ACT #### [facility] [address] [place] [address] Dr. Etienne Fitch Sodium [Moles/Vol] 141 mmol/L Normal 136-145 [facility] Comment on above: Performed By: #### L ACT #### [facility] [address] [address] [address] Etienne Fitch Urea nitrogen [Mass/Vol] 33.0 mg/dL Critically high 7.0-18.0 [facility] Comment on above: Performed By: #### L ACT #### [facility] [address] [place] [address] Dr. Etienne Fitch Urea nitrogen/Creatini ne [Mass ratio] 34.0 mg/mg Normal [facility] Comment on above: Performed By: #### L ACT #### [facility] [address] [place] [address] Dr. Etienne Fitch SINGLE QUAD RT UPPER US SINGLE QUAD RT UPPER EXAMINATION: US SINGLE QUAD RT UPPER HISTORY: GENERALIZED ABDOMINAL PAIN COMPARISON: No relevant comparison available. FINDINGS: Liver is normal in size, contour and echotexture. No focal hepatic mass. Normal hepatopedal flow in the main portal vein with a velocity of 37 cm/s. The gallbladder is normal in size. The gallbladder wall measures 2.1 mm. No pericholecystic fluid. Echogenic material layering dependently likely combination of gallbladder sludge and cholelithiasis. Echogenic focus in the gallbladder neck, adherent stone versus polyp. Negative sonographic Reyna sign. The common bile duct measures 2.6 mm, normal. The visualized pancreas is normal in appearance The right kidney measures 12.1 x 6.6 x 5.5 cm. No hydronephrosis or solid mass. The cortex measures 1.3 cm IMPRESSION: Cholelithiasis and gallbladder sludge without evidence of acute cholecystitis Electronically authenticated by: ALEXA HOWARD Date: 2022-04-02 09:08 Normal [facility] CBC AUTO DIFFon 04-01-2022 BASO # 0.1 103/ul Normal 0.0-0.1 [facility] Comment on above: Performed By: #### U MICRO, ERUR #### [facility] [address] [address] [address] Etienne Fitch Basophils/100 WBC (Bld) 0.4 % Normal 0.2-2.0 [facility] Comment on above: Performed By: #### U MICRO, ERUR #### [facility] [address] [address] [address] Etienne Fitch EO # 0.0 103/ul Normal 0.0-0.7 [facility] Comment on above: Performed By: #### U MICRO, ERUR #### [facility] [address] [address] [address] Etienne Fitch Eosinophils/100 WBC (Bld) 0.0 % Critically low 0.9-7.0 [facility] Comment on above: Performed By: #### U MICRO, ERUR #### [facility] [address] [address] [address] Etienne Fitch Erythrocyte distribution width (RBC) [Ratio] 12.8 % Normal 11.0-15.0 [facility] Comment on above: Performed By: #### U MICRO, ERUR #### [facility] [address] [place] [address] Dr. Etienne Fitch Hematocrit (Bld) [Volume fraction] 55.1 % Critically high 42.0-54.0 [facility] Comment on above: Performed By: #### U MICRO, ERUR #### [facility] [address] [place] [address] Dr. Etienne Fitch Hemoglobin (Bld) [Mass/Vol] 18.3 g/dL Critically high 14.0-18.0 [facility] Comment on above: Performed By: #### U MICRO, ERUR #### [facility] [address] [place] [address] Dr. Etienne Fitch IG # 0.11 10e3/ul Critically high 0.00-0.03 [facility] Comment on above: Performed By: #### U MICRO, ERUR #### [facility] [address] [place] [address] Dr. Etienne Fitch IG % 0.5 % Normal 0.0-0.5 [facility] Comment on above: Performed By: #### U MICRO, ERUR #### [facility] [address] [place] [address] Dr. Etienne Fitch LYMPH # 1.2 103/ul Normal 1.2-3.8 [facility] Comment on above: Performed By: #### U MICRO, ERUR #### [facility] [address] [place] [address] Dr. Etienne Fitch Lymphocytes/100 WBC (Bld) 5.7 % Critically low 20.5-60.0 [facility] Comment on above: Performed By: #### U MICRO, ERUR #### [facility] [address] [place] [address] Dr. Etienne Fitch MANUAL DIFF REQ NO Normal [facility] Comment on above: Performed By: #### U MICRO, ERUR #### [facility] [address] [place] [address] Dr. Etienne Fitch MCH (RBC) [Entitic mass] 30.7 pg Normal 25.9-34.0 [facility] Comment on above: Performed By: #### U MICRO, ERUR #### [facility] [address] [place] [address] Dr. Etienne Fitch MCHC (RBC) [Mass/Vol] 33.2 g/dL Normal 29.9-35.2 [facility] Comment on above: Performed By: #### U MICRO, ERUR #### [facility] [address] [place] [address] Dr. Etienne Fitch MCV (RBC) [Entitic vol] 92.3 fL Normal 80.0-94.0 [facility] Comment on above: Performed By: #### U MICRO, ERUR #### [facility] [address] [place] [address] Dr. Etienne Fitch MONO # 1.6 103/ul Critically high 0.3-0.8 [facility] Comment on above: Performed By: #### U MICRO, ERUR #### [facility] [address] [place] [address] Dr. Etienne Fitch Monocytes/100 WBC (Bld) 7.4 % Normal 1.7-12.0 [facility] Comment on above: Performed By: #### U MICRO, ERUR #### [facility] [address] [place] [address] Dr. Etienne Fitch NEUT # 18.6 103/ul Critically high 1.4-6.5 [facility] Comment on above: Performed By: #### U MICRO, ERUR #### [facility] [address] [place] [address] Dr. Etienne Fitch Neutrophils/100 WBC (Bld) 86.0 % Critically high 43.0-75.0 [facility] Comment on above: Performed By: #### U MICRO, ERUR #### [facility] [address] [place] [address] Dr. Etienne Fitch Platelet mean volume (Bld) [Entitic vol] 10.3 fL Normal 9.5-13.5 [facility] Comment on above: Performed By: #### U MICRO, ERUR #### [facility] [address] [place], [place] [address] Dr. Etienne Fitch PLT 447 103/ul Normal 150-450 [facility] Comment on above: Performed By: #### U MICRO, ERUR #### [facility] [address] [place], [place] [address] Dr. Etienne Fitch RBC 5.97 106/ul Normal 4.70-6.10 [facility] Comment on above: Performed By: #### U MICRO, ERUR #### [facility] [address] [place], [place] [address] Dr. Etienne Fitch WBC 21.6 103/ul Critically high 4.0-11.0 [facility] Comment on above: Performed By: #### U MICRO, ERUR #### [facility] [address] [place], [place] [address] ABD/PELV W CONon 04-01-20 CT ABD/PELV W CON EXAMINATION: CT ABD/ PELV W CON, 04/01/2022 2:33 PM EDT HISTORY: GENERALIZED ABDOMINAL PAIN COMPARISON: None. TECHNIQUE: CT scan of the abdomen and pelvis was performed with IV contrast. CT dose reduction technique was used, including Automated Exposure Control. FINDINGS: LUNG BASES: No visible pulmonary or pleural disease. LIVER: No enlargement, atrophy, abnormal density, or significant focal lesion. BILIARY: No dilatation or calcification. PANCREAS: No lesion, fluid collection, ductal dilatation, or atrophy. SPLEEN: No enlargement or focal lesion. ADRENALS: No mass or enlargement. KIDNEYS: 1.4 cm hypodensity, cortical medullary cyst is favored. No hydronephrosis or obstructing nephrolithiasis BOWEL/MESENTERY: No visible mass, obstruction, or bowel wall thickening. AORTA/VASCULAR: No aortic aneurysm. Atherosclerosis. RETROPERITONEUM: No mass or adenopathy. LYMPH NODES: No adenopathy. URINARY BLADDER: No visible focal wall thickening, lesion, or calculus. PELVIC ORGANS: No visible mass. Pelvic organs appropriate for patient age. ABDOMINAL WALL: No mass or hernia. BONES: Remote healed fracture right superior pubic ramus OTHER: Negative. IMPRESSION: No acute intraperitoneal abnormality Electronically authenticated by: ALEXA HOWARD Date: 2022-04-01 15:11 Normal [facility] Covid-19 PCR (CVDTBH)on SARS-CoV-2 (COVID-19) RNA KWABENA+probe Ql (Unsp spec) Not detected Normal NOT DETECTED [facility] Comment on above: Result Comment: When diagnostic testing is negative, the possibility of a false negative should be considered in the context of a patient's recent exposures and the presence of clinical signs and symptoms consistent with SARS-CoV-2. This test is not yet approved or cleared by the [place] FDA. When there are no FDA-approved or cleared tests available, and other criteria are met, FDA can make tests available under an emergency access mechanism called an Emergency Use Authorization (EUA). The EUA for this test is supported by the Clinical Nursing Director of Health and Human Service's declaration that circumstances exist to justify the emergency use of in vitro diagnostics for the detection and/or diagnosis of the virus that causes COVID-19. This EUA will remain in effect for the duration of the COVID-19 declaration justifying emergency of IVDs, unless it is terminated or revoked by the FDA (after which the test may no longer be used). Performed By: #### C VDTBH #### [facility] [address] [place] [address] Dr. Etienne Fitch ER URINE PROFILEon 2 Bilirubin Ql (U) MODERATE Abnormal NEGATIVE [facility] Comment on above: Performed By: #### U MICRO, ERUR #### [facility] [address] [place] [address] Dr. Etienne Fitch Clarity (U) CLEAR Normal CLEAR [facility] Comment on above: Performed By: #### U MICRO, ERUR #### [facility] [address] [place] [address] Dr. Etienne Fitch Color (U) DK. ORANGE Abnormal YELLOW [facility] Comment on above: Performed By: #### U MICRO, ERUR #### [facility] [address] [place] [address] Dr. Etienne Fitch ERUAHD A micrscopic examina tion will be performed if indicated. Normal [facility] Comment on above: Performed By: #### U MICRO, ERUR #### [facility] [address] [address] [address] Etienne Fitch Glucose Ql (U) Negative Normal NEGATIVE [facility] Comment on above: Performed By: #### U MICRO, ERUR #### [facility] [address] [address] [address] Etienne Fitch Hemoglobin Ql (U) Negative Normal NEGATIVE [facility] Comment on above: Performed By: #### U MICRO, ERUR #### [facility] [address] [address] [address] Etienne Fitch Ketones Ql (U) Negative Normal NEGATIVE [facility] Comment on above: Performed By: #### U MICRO, ERUR #### [facility] [address] [address] [address] Etienne Fitch LEUKOCYTES Negative Normal NEGATIVE [facility] Comment on above: Performed By: #### U MICRO, ERUR #### [facility] [address] [address] [address] Etienne Fitch Nitrite Ql (U) Negative Normal NEGATIVE [facility] Comment on above: Performed By: #### U MICRO, ERUR #### [facility] [address] [address] [address] Etienne Fitch pH (U) 5.5 [pH] Normal 5-9 [facility] Comment on above: Performed By: #### U MICRO, ERUR #### [facility] [address] [address] [address] Etienne Fitch Protein (U) [Mass/Vol] 100 mg/dL Abnormal NEGATIVE/ TRACE [facility] Comment on above: Performed By: #### U MICRO, ERUR #### [facility] [address] [address] [address] Etienne Fitch SPEC GRAVITY >=1.030 Abnormal 1.005-<=1.02 5 [facility] Comment on above: Performed By: #### U MICRO, ERUR #### [facility] [address] [address] [address] Etienne Fitch UR MICRO IND INDICATED Normal [facility] Comment on above: Performed By: #### U MICRO, ERUR #### [facility] [address] [place] [address] Dr. Etienne Fitch Urobilinogen Qn (U) 1.0 {Nesha'U}/dL Normal 0.2 - 1.0 [facility] Comment on above: Performed By: #### U MICRO, ERUR #### [facility] [address] [place] [address] Dr. Etienne Fitch LACTATE/LACTIC ACIDon 2021 Lactate [Moles/Vol] 1.8 mmol/L Normal 0.4-1.9 [facility] Comment on above: Performed By: #### U MICRO, ERUR #### [facility] [address] [place] [address] Dr. Etienne Fitch Lactate [Moles/Vol] 2.3 mmol/L Critically high 0.4-1.9 [facility] Comment on above: Result Comment: repe ated Performed By: #### L ACT #### [facility] [address] [place] [address] Dr. Etienne Fitch LIPASEon 04-01-2022 Lipase [Catalytic activity/Vol] 32.0 U/L Critically low 73.0-393.0 [facility] Comment on above: Performed By: #### U MICRO, ERUR #### [facility] [address] [place] [address] Dr. Etienne Fitch PROF 14(COMP METB)on 022 Albumin [Mass/Vol] 4.9 g/dL Normal 3.4-5.0 [facility] Comment on above: Performed By: #### U MICRO, ERUR #### [facility] [address] [place] [address] Dr. Etienne Fitch Albumin/Globulin [Mass ratio] 1.2 {ratio} Normal [facility] Comment on above: Performed By: #### U MICRO, ERUR #### [facility] [address] [place] [address] Dr. Etienne Fitch ALP [Catalytic activity/Vol] 82 U/L Normal 46-116 [facility] Comment on above: Performed By: #### U MICRO, ERUR #### [facility] [address] [address] [address] Etienne Fitch ALT [Catalytic activity/Vol] 37 U/L Normal 16-63 [facility] Comment on above: Performed By: #### U MICRO, ERUR #### [facility] [address] [address] [address] Etienne Fitch Anion gap [Moles/Vol] 13.2 mmol/L Normal [facility] Comment on above: Performed By: #### U MICRO, ERUR #### [facility] [address] [address] [address] Etienne Fitch AST [Catalytic activity/Vol] 31 U/L Normal 15-37 [facility] Comment on above: Performed By: #### U MICRO, ERUR #### [facility] [address] [place] [address] Dr. Etienne Fitch Bilirubin [Mass/Vol] 4.8 mg/dL Critically high 0.2-1.0 [facility] Comment on above: Performed By: #### U MICRO, ERUR #### [facility] [address] [place] [address] Dr. Etienne Fitch Calcium [Mass/Vol] 9.8 mg/dL Normal 8.5-10.1 [facility] Comment on above: Performed By: #### U MICRO, ERUR #### [facility] [address] [address] [address] Etienne Fitch Chloride [Moles/Vol] 98 mmol/L Normal 98-107 [facility] Comment on above: Performed By: #### U MICRO, ERUR #### [facility] [address] [address] [address] Etienne Fitch CO2 [Moles/Vol] 31.2 mmol/L Normal 21.0-32.0 [facility] Comment on above: Performed By: #### U MICRO, ERUR #### [facility] [address] [address] [address] Etienne Fitch Creatinine [Mass/Vol] 1.63 mg/dL Critically high 0.70-1.30 [facility] Comment on above: Performed By: #### U MICRO, ERUR #### [facility] [address] [address] [address] Etienne Fitch EGFR-AF ETHIOPIAN 56 mL/min/1.73m2 Critically low >=60 [facility] Comment on above: Performed By: #### U MICRO, ERUR #### [facility] [address] [address] [address] Etienne Fitch EGFR-NON AF ETHIOPIAN 46 mL/min/1.73m2 Critically low >=60 [facility] Comment on above: Performed By: #### U MICRO, ERUR #### [facility] [address] [address] [address] Etienne Fitch Globulin (S) [Mass/Vol] 4.1 g/dL Normal [facility] Comment on above: Performed By: #### U MICRO, ERUR #### [facility] [address] [address] [address] Etienne Fitch Glucose [Mass/Vol] 142 mg/dL Critically high 74-106 [facility] Comment on above: Performed By: #### U MICRO, ERUR #### [facility] [address] [address] [address] Etienne Fitch Potassium [Moles/Vol] 3.4 mmol/L Critically low 3.5-5.1 [facility] Comment on above: Performed By: #### U MICRO, ERUR #### [facility] [address] [address] [address] Etienne Fitch Protein [Mass/Vol] 9.0 g/dL Critically high 6.4-8.2 [facility] Comment on above: Performed By: #### U MICRO, ERUR #### [facility] [address] [address] [address] Etienne Fitch Sodium [Moles/Vol] 139 mmol/L Normal 136-145 [facility] Comment on above: Performed By: #### U MICRO, ERUR #### [facility] [address] [address] [address] Etienne iFtch Urea nitrogen [Mass/Vol] 40.0 mg/dL Critically high 7.0-18.0 [facility] Comment on above: Performed By: #### U MICRO, ERUR #### [facility] [address] [place] [address] Dr. Etienne Fitch Urea nitrogen/Creatini ne [Mass ratio] 24.5 mg/mg Normal [facility] Comment on above: Performed By: #### U MICRO, ERUR #### [facility] [address] [place] [address] Dr. Etienne Fitch TROPONIN, HIGH SENSITIVITYon 04-01-2022 HSTROP 44.4 pg/mL Normal 4.0-76.1 [facility] Comment on above: Result Comment: CUT- OFF POINTS HAVE BEEN ESTABLISHED BASED ON THE FOURTH UNIVERSAL DEFINITIONS OF MYOCARDIAL INFARCTION. THE UPPER REFERENCE LIMIT (URL) OF TROPONIN, DEFINED THE 99TH PERCENTILE OF cTnI DISTRIBUTION IN A REFERENCE POPULATION, HAS BEEN CONFIRMED THE DECISION THRESHOLD FOR [place] DIAGNOSIS. Performed By: #### U MICRO, ERUR #### [facility] [address] [place] [address] Dr. Etienne Fitch URINE MICROSCOPIC ONLYon BACTERIA NONE SEEN Normal NONE SEEN [facility] Comment on above: Performed By: #### U MICRO, ERUR #### [facility] [address] [place] [address] Dr. Etienne Fitch Bacteria identified Cx Nom (U) NOT INDICATED Normal [facility] Comment on above: Performed By: #### U MICRO, ERUR #### [facility] [address] [place] [address] Dr. Etienne Fitch CAST SEEN Abnormal NONE SEEN [facility] Comment on above: Performed By: #### U MICRO, ERUR #### [facility] [address] [place] [address] Dr. Etienne Fitch Crystals LM Nom (Urine sed) NONE SEEN Normal NONE SEEN [facility] Comment on above: Performed By: #### U MICRO, ERUR #### [facility] [address] [place] [address] Dr. Etienne Fitch Epithelial cells LM Ql (Urine sed) NONE SEEN Normal NONE SEEN /RARE [facility] Comment on above: Performed By: #### U MICRO, ERUR #### [facility] [address] [address] [address] Etienne Fitch MUCOUS NONE SEEN Normal NONE SEEN [facility] Comment on above: Performed By: #### U MICRO, ERUR #### [facility] [address] [address] [address] Etienne Fitch RBC NONE SEEN Abnormal 0-2 [facility] Comment on above: Performed By: #### U MICRO, ERUR #### [facility] [address] [address] [address] Etienne Fitch WBC 0-2 Abnormal NONE SEEN [facility] Comment on above: Performed By: #### U MICRO, ERUR #### [facility] [address] [address] [address] Etienne Fitch Vital Signs Date Time Vital Sign Value Performing Clinician Thieni amy 07-02-2022 13:15-0400 Blood Pressure Location [facility] [place] 07-02-2022 13:15-0400 Diastolic blood pressure 74 mm[Hg] [facility] [place] 07-02-2022 13:15-0400 Heart rate 72 /min [facility] [place] 07-02-2022 13:15-0400 Respiratory rate 16 /min [facility] [place] 07-02-2022 13:15-0400 Systolic blood pressure 120 mm[Hg] [facility] [place] Encounters Encounter Date Encounter Type Care Provider Facility Start: 02-07-2023 Encounter for genera l adult medical examination without abnormal findings [facility] Start: 01-29-2023 End: 01-30-2023 [facility] Start: 01-29-2023 End: 01-30-2023 Encounter for general adult medical examination without abnormal findings [facility] Facility:[facility] Start: 12-18-2022 End: 12-19-2022 ambulatory MAKENZIE NAVARRETEON Facility:[facility] Start: 12-12-2022 End: 12-12-2022 ambulatory EVELYN GLASER . Facility: Start: 08-07-2022 ambulatory Anupam POOLE Facility :[facility] Start: 08-07-2022 End: 08-07-2022 Patient encounter procedure Anupam POOLE [facility] Start: 07-24-2022 Encounter for preprocedural laboratory examination DR ANUPAM POOLE . [facility] Start: 07-24-2022 End: 07-25-2022 ambulatory Anupam POOLE Facility:[id number] Start: 07-20-2022 End: 07-21-[address] ANUPAM POOLE . Facility: Start: 07-20-2022 End: 07-21-2022 Encounter for preprocedural laboratory examination DR ANUPAM POOLE . Facility:[facility] Start: 07-17-2022 End: 07-18-[address] ANUPAM POOLE . Facility: Start: 07-02-2022 End: 07-03-2022 ambulatory Anupam POOLE Facility:[facility] Start: 07-02-2022 End: 07-02-2022 Patient encounter procedure Anupam POOLE [facility] [place] Start: 06-15-2022 End: 06-15-2022 ambulatory EVELYN GLASER . Facility: Start: 04-23-2022 ambulatory Anupam POOLE Facility :[facility] Start: 04-02-2022 ambulatory Anupam POOLE Facility :[facility] Start: 04-01-2022 End: 04-02-[address] ALEXA HOWARD Facility: Procedures Date Procedure Procedure Detail Performing Clinician Start: 07-24-2022 Colonoscopy Anupam ELLIOTT Start: 07-24-2022 Esophagogastroduodenoscopy Anupam POOLE None (qualifier value) Elias POOLE Payers Date Payer Category Payer Unknown [id number] 2.16.8 [id number] 1978 Unknown [id number] 2.16.8 [id number] 1978 Unknown [id number] 2.16.8 [id number] 1978 Unknown [id number] 2.16.8 [id number] 1978 Unknown [id number] 2.16.84 [id number] 1978 Unknown [id number] 2.16.84 [id number] 1978 Unknown [id number] 2.16.84 [id number] 1978 Unknown [id number] 2.16.84 [id number] 1978 Unknown [id number] 2.16.84 [id number] 1978 Unknown [id number] 2.16.84 [id number] 1978 Unknown [id number] 2.16.84 [id number] 1978 Unknown [id number] 2.16.84 [id number] 1959 Unknown [id number] Social History Date Type Detail Facility Start: 07-02-2022 Tobacco smoking status Ex-smoker (fi nding) [facility] [place] Tobacco smoking status Smokeless tobacco user within last 30 days [facility] Sex Assigned At Male [facility] Functional Status Date Assessment Result Facility 07-02-2022 Functional Status N/A [facility] [place] Clinical Note 07-24-2022 Note Date & Type Note Facility 07-24-2022 Note OPERATIVE NOTE OPERATION DATE: 07/24/2022 PREOPERATIVE DIAGNOSIS: Right mid and right lower quadrant abdominal pain, intermittent nausea and vomiting. POSTOPERATIVE DIAGNOSIS: Antral gastritis as well as redundant colon with spasm. PROCEDURE: EGD with antral biopsy and colonoscopy to cecum. SURGEON: Anupam Poole M.D. ANESTHESIA: Monitored anesthesia care. ESTIMATED BLOOD LOSS: Less than 1 mL. INDICATIONS AND CONSENT: Patient is a 41-year-old male with history of intermittent right mid and right lower quadrant abdominal pain, as well as intermittent nausea and vomiting. Indications, risks, benefits, alternatives of proceeding with EGD and colonoscopy were explained extensively to the patient, including the risks of bleeding, aspiration, esophageal, gastric, duodenal or colonic perforation or anesthetic complications. All of his questions were answered. Informed consent was obtained. PROCEDURE: Patient brought to the operating room, placed in the left lateral decubitus position. Monitored anesthesia care was provided. A bite block was placed in the patient's mouth. Scope was inserted into the oropharynx. Under direct visualization, it was advanced into the esophagus, past the cricopharyngeus, down to the stomach. The stomach was insufflated with air. The pylorus was traversed down to the descending portion of the duodenum. There was no evidence of duodenitis or ulceration. There was no scarring within the pyloric channel. The scope was pulled back into the stomach. There was noted to be some mild antral gastritis. Biopsy was obtained with cold biopsy forceps with good hemostasis. Scope was retroflexed. There was no significant hiatal hernia. The GE junction was noted at 40 cm. There was no distal esophagitis or Gutierrez's changes. Remainder of the esophagus was unremarkable. The scope was then withdrawn. The patient was then positioned for colonoscopy. Rectal exam was performed which showed decreased tone. No masses or blood. Scope was inserted into the anal canal. Under direct visualization was advanced. With the aid of abdominal compression, it was advanced to the cecum where cecal markings were clearly identified. There was noted to be a good prep. Upon withdrawal of the scope, mucosal surfaces were carefully examined. There were no mass lesions or polyps. No inflammatory changes or ulcerations. No significant diverticulosis. There was some redundancy of the colon with spasm. The scope was retroflexed in the anal canal. There were prominent rectal veins. No significant hemorrhoidal disease. Scope was then withdrawn. Patient tolerated procedure well, was sent to recovery in good condition. CC: Family physician [facility] Clinical Note 07-02-2022 Note Date & Type Note Facility 07-02-2022 Note Chief Complaint consultation for ABD pain HPI Staff 41 year old male presents on consultation from [facility] ED for abdominal pain. Presented to ED 04/01 and 06/15 with ABD pain, nausea and vomiting. Reports pain is located in RLQ and is crampy/sharp and stabbing in nature. No alleviating factors. Pain can last for several days. Denies rectal pain or bleeding. No change in bowel habits. No unexplained weight loss. Never had colonoscopy in the past. CT ABD 04/01- negative and RUQ US with cholelithiasis and sludge. History of Present Illness 41 yo male referred from ED for abdominal pain; patient reports 4 month h/o intermittent right mid abdominal pain, associated with nausea and vomiting; pain is crampy, constant, no radiation, associated with multiple episodes of emesis; can last for days, last episode lasted 12 days, no associated fevers, no bowel changes, no triggering events; no h/o jaundice or acholic stools; no wt loss; no previous abdominal operations or endoscopies; seen in ED back in March and 06/15/22; evidence of dehydration; elevated bilirubin of 4.8 in March, normal lipase and remaining lfts; more recently bilirubin was 3; also had elevated wbc; abd/pelvic ct scan in March wn, images reviewed; also had GB US that revealed sludge, possible small stones, no wall thickening, no ductal dilation; only plain abd films after recent evaluation in ED; on Prilosec OTC for past week; no further episodes; no fmhx of GI malignancy or IBD; smokes daily, uses marijuana daily. Review of Systems PHQ Score Initial Depression Screen Score: 0 ROS - Provider Constitutional: no fever, no sweats, no weight loss. Eyes: no glasses, no blurred vision, no visual loss. ENMT: no dentures, no hoarseness, no swallowing difficulties, no hearing loss, no ear infection(s), no nose bleeds. Cardiovascular: normal blood pressure, no chest pain, regular heartbeat, no heart murmur. Respiratory: no shortness of breath, no cough, no asthma, no wheezing. Gastrointestinal: yes nausea, yes vomiting, no diarrhea, no constipation, no blood in stool, no change in bowel habits, yes abdominal pain, no hepatitis. Genitourinary: no kidney stones, no urine infection, no dysuria. Musculoskeletal: no pain, no weakness. Skin: no changing moles, no rash, no skin lumps. Neurologic: no seizures, no epilepsy, no headache. Psychiatric: no emotional or psychiatric problem. Heme/Lymph: no bleeding problems, no anemia, no blood clots, no transfusions. Allergy/Immunologic: no swollen lymph nodes/glands, no IV drug abuse. Other: Additional ROS info: Except as noted in the above Review of Systems and in the History of Present Illness, all other systems have been reviewed and are negative or noncontributory. Physical Exam Vitals & Measurements HR: 72(Peripheral) RR: 16 BP: 120/74 HT: 182.8 cm HT: 182.8 cm WT: 74 kg WT: 74.0 kg BMI: 22.15 HEENT: normal conjunctiva, sclera clear, no scleral icterus, EOM intact, PERRLA, oral mucosa moist without lesions. Neck: trachea midline, no mass, symmetric, no thyromegaly or nodules, no adenopathy Respiratory: lungs CTA, respirations non labored. Cardiovascular: regular rate and rhythm, no murmur, no pedal edema or varicosities. Gastrointestinal: soft, non distended, no tenderness, no masses, no palpable hernias, diastasis recti no, no hepatosplenomegaly; normal bs Lymphatic: no cervical adenopathy, Musculoskeletal: normal gait, digits and nails without infection, nodes, cyanosis, clubbing. Skin: no rashes, no lesions, no ulcers, no subcutaneous nodules, induration. diaphoretic Psychiatric/Neuro: oriented to time, place, person, judgement normal, affect appropriate for age, insight intact, no focal deficits. Tests: labs reviewed, x-rays reviewed, review of old records completed, Discussed surgical options, risks, and possible complications with patient. Assessment/Plan 1. RLQ abdominal pain (R10.31: Right lower quadrant pain) and right mid abdominal pain; plan EGD and colonoscopy for further evaluation, informed consent obtained; continue low fat diet. 2. Nausea & vomiting (R11.2: Nausea with vomiting, unspecified) see # 1 3. Cholelithiasis (K80.20: Calculus of gallbladder without cholecystitis without obstruction) and elevated bilirubin; will obtain MRCP for further evaluation of liver and bile ducts, patient may be passing small stones; symptoms not consistent with biliary colic, no evidence of cholecystitis; continue low fat diet. 4. Hyperbilirubinemia (E80.6: Other disorders of bilirubin metabolism) see # 3 Follow-up No qualifying data available Problem List/Past Medical History Ongoing BMI 22.0-22.9, adult Cholelithiasis Chromosomal microduplication Chronic alcohol abuse Epigastric pain Gastritis Hyperbilirubinemia Nausea & vomiting RLQ abdominal pain Historical No qualifying data Procedure/Surgical History None. Medications Prilosec OTC, 1 tab(s), Oral, Daily Allergies No Known Allergies No K (more content not included)... [facility] Comment on above: Result Comment: Elec tronically Signed By: SAMIR MOCK, Anupam Thompson\Date and Time Signed: 07/02/22 21:30 EDT History and physical note 04-03-2022 Note Date & Type Note Facility 04-03-2022 Note [id number] [facility] Evaluation + Plan note Note Date & Type Note Facility Evaluation + Plan note No data available for this section [facility] Discharge instructions Note Date & Type Note Facility Hospital Discharge instructions No data available for this section [facility] Progress note Note Date & Type Note Facility Progress note No data available for this section [facility] Summary Purpose Family History No Family History Records FoundNo Family History Records Found Advance Directives No Advanced Directives Records FoundNo Advanced Directives Records Found Additional Source Comments Care Team (unrecognized sect ion and content) Personnel Name: RANJANA TRAYLOR MD Address: [address] [place], [place] [id number] Personnel Name: RANJANA TRAYLOR MD Address: Address: [address] [place] [address] (unrecognized sect ion and content) No Status Records FoundNo Status Records Found INFORMATION SOURCE (unrecogn ized section and content) DATE CREATED AUTHOR 08/07/2022 Kiran Germain [facility] DATE CREATED AUTHOR AUTHOR'S JULIAN LOPEZ 02/08/2023 Bossman brady FOR RECORDS PERTAINING TO PATIENTS WHO ARE OR HAVE BEEN ENROLLED IN A CHEMICAL DEPENDENCY/SUBSTANCEABUSE PROGRAM, SOME INFORMATION MAY BE OMITTED. This clinical summary was aggregated from multiple sources. Caution should be exercised in using it in the provision of clinical care. This summary normalizes information from multiple sources, and as a consequence, information in this document may materially change the coding, format and clinical context of patient data. In addition, data may be omitted in some cases. CLINICAL DECISIONS SHOULD BE BASED ON THE PRIMARY CLINICAL RECORDS. [facility]. provides no warranty or guarantee of the accuracy or completeness of information in this document.
--- NOTE | 2024-02-05 21:59 | ED_ITS ---
HPI HPI - General Adult General Chief complaint: Nausea/Vomiting/Diarrhea Stated complaint: Nausea/Vomiting Time Seen by Provider: 02/05/24 21:27 Source: patient Mode of arrival: walk-in History of Present Illness HPI narrative: This 43-year-old male who has been seen in this emergency department multiple times for nausea and vomiting and abdominal pain presents for evaluation and requesting a work note for the past 3 days. He states that yesterday he was nauseated and had several episodes of vomiting throughout the day. He has also had a fever and thinks he may have strep throat. He requests a note for work so he can go back to work. He denies that he is having any vomiting or diarrhea but prior to me coming into the room he had an episode where he became extremely diaphoretic and nauseated. He states he had a fever several days ago but did not take his temperature. He states that he has been told that he may have cannabinoid hyperemesis syndrome but is never been confirmed. He denies any chest pain or shortness of breath. Related Data Home Medications ?Medication ?Instructions ?Recorded ?Confirmed fluoxetine 40 mg capsule 60 mg PO BEDTIME 07/16/23 07/17/23 olanzapine 2.5 mg tablet 2.5 mg PO BEDTIME 07/16/23 11/04/23 omeprazole 20 mg capsule,delayed 20 mg PO DAILY 07/16/23 11/04/23 release fluoxetine 60 mg tablet 60 mg PO QPM 11/04/23 11/04/23 Previous Rx's ?Medication ?Instructions ?Recorded amlodipine 10 mg tablet 10 mg PO DAILY #30 tabs 07/18/23 hyoscyamine sulfate 0.125 mg 0.125 mg PO Q6H PRN abdominal pain 11/04/23 tablet (Levsin) #12 tabs ondansetron 4 mg disintegrating 4 mg PO Q6H PRN nausea and 11/04/23 tablet vomiting #12 tabs pantoprazole 40 mg tablet,delayed 40 mg PO DAILY #7 tabs 11/04/23 release (Protonix) Allergies Allergy/AdvReac Type Severity Reaction Status Date / Time No Known Drug Allergies Allergy Verified 07/17/23 06:23 Opioid HPI Opioid Management Most Recent Opioid Data: Last Pain Scale 0 07/21/23 19:57 Ur Phencyclidine Scrn Negative (NEGATIVE) 02/05/24 23:36 Review of Systems ROS Status of ROS 10 or more systems reviewed and unremark able except as noted in history and below [facility] Medical History Family History Father Family history of CHF (congestive heart failure) Family history of hypertension Family history of myocardial infarction Family history of stroke Grandfather Family history of cancer Family history of myocardial infarction Family history of stroke Uncle Family history of cancer Grandmother Family history of diabetes mellitus Social History Within the past year, how often did you have a drink containing alcohol: never Score interpretation: A score less than 4 is consistent with normal alcohol consumption. Smoking status: Current every day smoker Do you use any of these nicotine containing products: vaping products Non-prescribed substance use: cannabis (any form) Exam Narrative Exam Narrative: Nurses note and vital signs reviewed and patient is not hypoxic. General: Nontoxic but uncomfortable and mildly ill-appearing male, no respiratory distress, no active vomiting Skin: Warm, dry, no pallor noted. There is no rash noted. Head: Normocephalic, atraumatic Eye: Normal conjunctiva, no drainage, EOMI. PERRL. No scleral icterus Ears, Nose, Mouth, and Throat: oral mucosa is moist.Thick white postnasal drip, there is no swelling of the tongue, uvula or pharyngeal soft tissues Cardiovascular: Regular Rate and Rhythm S1S2, no murmurs, rubs or gallops appreciated Respiratory: Patient is in no distress, no accessory muscle use, lungs are clear to auscultation, no wheezing, rales or rhonchi Back: non-tender, no CVA tenderness bilaterally to percussion. GI: Normal bowel sounds, no tenderness to palpation, no masses appreciated. No rebound, guarding, or rigidity noted. Musculoskeletal: The patient has no evidence of calf tenderness, no pitting edema, symmetrical pulses noted bilaterally Neurological: A&O x4, normal speech Psychiatric: Cooperative Constitutional Vital Signs, click to edit/add: Last Vital Signs Temp 98.2 F 02/06/24 02:30 Pulse 74 02/06/24 03:27 Resp 16 02/06/24 03:27 BP 120/83 02/06/24 03:27 Pulse Ox 16 L 02/06/24 03:27 O2 Del Method Room Air 02/06/24 03:27 Course Vital Signs Vital signs: Vital Signs Temperature 98.0 F 02/05/24 21:25 Pulse Rate 102 H 02/05/24 21:25 Respiratory Rate 18 02/05/24 21:25 Blood Pressure 123/94 H 02/05/24 21:25 Pulse Oximetry 99 02/05/24 21:25 Oxygen Delivery Method Room Air 02/05/24 21:25 Temperature 98.2 F 02/06/24 02:30 Pulse Rate 74 02/06/24 03:27 Respiratory Rate 16 02/06/24 03:27 Blood Pressure 120/83 02/06/24 03:27 Pulse Oximetry 16 L 02/06/24 03:27 Oxygen Delivery Method Room Air 02/06/24 03:27 Medical Decision Making MDM Narrative Medical decision making narrative: This 43-year-old male who has been admitted to this facility multiple times for evaluation of abdominal pain with nausea vomiting, elevated liver enzymes and acute kidney injury due to vomiting who also has a history of cannabis use and has been told in the past that his symptoms may be related to cannabinoid hyperemesis syndrome presents for evaluation stating that he was sick over the past 24 hours with nausea and vomiting and has had a fever in the past several days. He has not had any diarrhea. He also states he was exposed to strep. In the Emergency Department he was somewhat ill-appearing and diaphoretic. EKG was ordered and shows a normal sinus rhythm with an incomplete right bundle branch block at 95 bpm. An IV was placed and was given IV fluids and Zofran and Pepcid. Strep testing is positive. He was given 3 g of IV Unasyn for the strep positivity. He triggered a sepsis alert and appropriate labs were ordered. He has a markedly elevated white count at 36.5. This may be related to his excessive vomiting however this is higher than his white count typically is. He also has elevated BUN and creatinine today at 64 and 2.85. In June 2023 his BUN is 49 and creatinine was 3.39. His total bilirubin today is 2.7. It has been as high as 2.9. AST is 13 a LT is 17 and alkaline phosphatase is 133. Troponin was within normal limits. Urine was negative infection but positive for casts and protein and urine toxicology was positive for THC. He has an elevated lactic acid at 2.3.. 2 sets of blood cultures are pending at this time. He was reevaluated after his initial treatment and is feeling better and tolerating clear liquids. Repeat lactic acid is now 1.3. I explained to him that he will likely need to stay in the hospital due to his kidney function, dehydration. A chest x-ray and noncontrast CT scan of the abdomen and pelvis was ordered due to the elevated WBC count which is higher than his usually elevated WBC count when he presents for the nausea/vomiting and abdominal pain that is thought to possibly be related to THC use. CT scan of the A/P does not show any acute findings however the chest x-ray shows a left upper lobe cavitary mass/infection with recommendation for a CT scan. I was unable to perform the CT scan with IV contrast due to the patient's kidney function and a noncontrast CT scan was ordered and shows a cavitary pneumonia in the left upper lobe and advanced emphysematous changes. In light of this finding he was also medicated with IV Ceftriaxone. He denies that he has had any hemoptysis, weight loss or night sweats. He denies that he smokes cigarettes but does use marijuana and vapes. Zithromax was added to extend antibiotic coverage to include Legionella. The case was discussed with the hospitalist and he is accepted for admission to med/surg with telemetry monitoring Medical Records Medical records narrative: The [address] [address] [address] Scan Report Signed Patient: GERALDINE RICCI MR#: [id number] : 1980 Acct:[id number] Age/Sex: 43 / M ADM Date: 02/05/24 Loc: ER Attending Dr: Ordering Physician: Maritza Shahid Date of Service: 02/06/24 Procedure(s): CT abdomen pelvis wo con Accession Number(s): [id number] cc: Physician,Non-Staff Lulú~ The [address] [address] Patient Name: GERALDINE RICCI MRN: [id number] date: 1980 Sex: M Assigned Patient Location: ER Current Patient Location: ER Accession/Order Number: [id number] Exam Date: 02/06/2024 00:40 Report Date: 02/06/2024 01:57 At the request of: MARITZA SHAHID Procedure: CT abdomen pelvis wo con EXAM: CT abdomen pelvis wo con HISTORY: elevated WBC, elevated LFTs COMPARISON: 11/04/2023 , 07/21/2023 TECHNIQUE: CT of abdomen and pelvis without intravenous contrast. Dose reduction techniques were achieved by using automated exposure control and/or adjustment of mA and/or kV according to patient size and/or use of iterative reconstruction technique. FINDINGS: Limited evaluation of the viscera/organs and vasculature without intravenous contrast. TUBES AND IMPLANTS: None. LOWER CHEST: Mild cardiomegaly. Small pericardial effusion measuring 7 millimeters in thickness. ABDOMEN and PELVIS ABDOMINAL WALL AND SOFT TISSUES: Unremarkable. BONES: No suspicious lesions. Mild degenerative changes of the spine. ARTERIES: Incompletely evaluated. Mild aortoiliac calcification without aneurysm VEINS: Incompletely evaluated. LYMPH NODES: Unremarkable. PERITONEUM/ RETROPERITONEUM: Unremarkable. BOWEL: No obstruction APPENDIX: Unremarkable LIVER: Unremarkable. GALLBLADDER: Unremarkable. BILE DUCTS: Not dilated SPLEEN: Calcified granulomata PANCREAS: Unremarkable. ADRENALS: Unremarkable. KIDNEYS/ URETERS: No stones or hydronephrosis. Left renal cyst. REPRODUCTIVE ORGANS: Unremarkable URINARY BLADDER: Unremarkable. CT/CT abdomen pelvis wo con IMPRESSION: No evidence of acute abdominopelvic process. Mild cardiomegaly. Small pericardial effusion. Electronically authenticated by: CHAD SERRANO Date: 02/06/2024 01:57 [place] [address] XRay Report Signed Patient: GERALDINE RICCI MR#: [id number] : 1980 Acct:[id number] Age/Sex: 43 / M ADM Date: 02/05/24 Loc: ER Attending Dr: Ordering Physician: Maritza Shahid Date of Service: 02/06/24 Procedure(s): XR chest 2V Accession Number(s): [id number] cc: Maritza Marker; Physician,Non-Staff M.D.~ The [address] [address] Patient Name: GERALDINE RICCI MRN: [id number] date: 1980 Sex: M Assigned Patient Location: ER Current Patient Location: ER Accession/Order Number: [id number] Exam Date: 02/06/2024 00:40 Report Date: 02/06/2024 01:40 At the request of: MARITZA MARKER Procedure: XR chest 2V EXAM: XR chest 2V HISTORY: R/O pneumonia COMPARISON: Abdominal chest x-ray series 06/15/2022. TECHNIQUE: 2 views chest x-rays frontal and lateral FINDINGS: Abnormal large left upper lung cavitary masses with air-fluid levels and surrounding lung consolidation. Borderline prominent heart size. No large pleural effusion, pneumothorax, or acute bony abnormality. XR/XR chest 2V IMPRESSION: Abnormal large left upper lung cavitary masses with air-fluid levels and surrounding lung consolidation. Recommend CT chest with contrast to evaluate for intrapulmonary abscess, cavitary pneumonia, and/or cavitary lung neoplasm with internal fluid levels. Electronically authenticated by: ALEXANDRU PINEDA Date: 02/06/2024 01:40 [place] [address] CT Scan Report Signed Patient: GERALDINE RICCI MR#: [id number] : 1980 Acct:[id number] Age/Sex: 43 / M ADM Date: 02/05/24 Loc: ER Attending Dr: Ordering Physician: Maritza Shahid Date of Service: 02/06/24 Procedure(s): CT chest wo con Accession Number(s): [id number] cc: Physician,Non-Staff M.D.~ The [place] [id number] Patient Name: GERALDINE RICCI MRN: [id number] date: 1980 Sex: M Assigned Patient Location: ER Current Patient Location: ER Accession/Order Number: [id number] Exam Date: 02/06/2024 02:14 Report Date: 02/06/2024 03:44 At the request of: MARITZA JUNIOR Procedure: CT chest wo con EXAM: CT chest wo con HISTORY: lung mass on CXR, unable to use IV contrast COMPARISON: None. TECHNIQUE: Noncontrast axial CT images through the chest were obtained with coronal and sagittal reformats. Dose reduction techniques were achieved by using automated exposure control and/or adjustment of mA and/or kV according to patient size and/or use of iterative reconstruction technique. FINDINGS: There are advanced emphysematous changes in the lungs. There is mild bibasilar atelectasis. There are scattered calcified granulomas in the lungs. There is consolidation and patchy opacities in the left upper lobe. There are 2 air-fluid levels within the medial left upper lobe with the larger measuring up to 7.3 x 4.6 cm (series 3, image 47) and the smaller measuring up to 6.4 x 3.9 cm (series 3, image 56). The central airways are patent. No pleural effusion or pneumothorax is seen. The cardiac chambers appear normal in size. The thoracic aorta and pulmonary arteries are normal in caliber. There is no mediastinal, hilar, or axillary lymphadenopathy by CT size criteria. There are calcified right hilar lymph nodes. The thyroid and esophagus appear unremarkable. Images through the upper abdomen reveal no significant abnormalities. Splenic calcifications are suggestive of prior granulomatous disease. No suspicious or aggressive bone lesions are seen. No acute fractures are seen. CT/CT chest wo con IMPRESSION: 1. Findings concerning for cavitary pneumonia in the left upper lobe. There are 2 large cavitary components as described. Follow-up imaging after treatment is recommended to document resolution and exclude any underlying lesion. 2. Advanced emphysematous changes. Electronically authenticated by: Wilfredo GOMEZ Date: 02/06/2024 03:44 Lab Data Labs: Lab Results 02/05/24 02/05/24 02/05/24 Range/Units 22:05 22:06 22:10 WBC 36.5 H* (4.0-11.0) 10^3/uL RBC 5.08 (4.70-6.10) 10^6/uL Hgb 15.1 (14.0-18.0) g/dL Hct 46.5 (42.0-54.0) % MCV 91.5 (80.0-94.0) fL MCH 29.7 (25.9-34.0) pg MCHC 32.5 (29.9-35.2) g/dL RDW 13.0 (11.0-15.0) % Plt Count 547 H (150-450) 10^3/uL MPV 10.3 (9.5-13.5) fL Seg Neuts % (Manual) 83.0 Band Neutrophils % 5.0 (0-5) % Lymphocytes % (Manual) 3.0 L (20.5-60.0) % Atypical Lymphs % (Man) 3.0 % Monocytes % (Manual) 6.0 (1.7-12.0) % Eosinophils % (Manual) 0.0 L (0.9-7.0) % Basophils % (Manual) 0.0 L (0.2-2.0) % Neutrophils # (Manual) 30.29 H (1.4-6.5) 10^3/uL Band Neutrophils # 1.8 H (0.0-0.3) 10^3/uL Lymphocytes # (Manual) 1.09 L (1.20-3.80) 10^3/uL Abs Atypical Lymphs Man 1.09 Monocytes # (Manual) 2.19 H (0.30-0.80) 10^3/uL Eosinophils # (Manual) 0.00 (0.00-0.70) 10^3/uL Basophils # (Manual) 0.00 (0.00-0.10) 10^3/uL Sodium 139 (136-145) mmol/L Potassium 3.8 (3.5-5.1) mmol/L Chloride 98 (98-107) mmol/L Carbon Dioxide 26.5 (21.0-32.0) mmol/L Anion Gap 18.3 BUN 64.0 H (7.0-18.0) mg/dL Creatinine 2.85 H (0.70-1.30) mg/dL Est GFR ( Amer) 29 L (>=60) Est GFR (Non-Af Amer) 24 L (>=60) BUN/Creatinine Ratio 22.5 Glucose 147 H (74-106) mg/dL Lactate 2.3 H* (0.4-2.0) mmol/L Calcium 10.1 (8.5-10.1) mg/dL Total Bilirubin 2.7 H (0.2-1.0) mg/dL AST 13 L (15-37) U/L ALT 17 (16-63) U/L Alkaline Phosphatase 133 H (46-116) U/L Troponin I High Sens 20.3 (4.0-76.1) pg/mL Total Protein 9.2 H (6.4-8.2) g/dL Albumin 3.3 L (3.4-5.0) g/dL Globulin 5.9 g/dL Albumin/Globulin Ratio 0.6 Urine Color (YELLOW) Urine Clarity (CLEAR) Urine pH (5.0-9.0) Ur Specific [place] (1.005-1.025) Urine Protein (NEG/TRACE) mg/dL Urine Glucose (UA) (NEGATIVE) mg/dL Urine Ketones (NEGATIVE) mg/dL Urine Occult Blood (NEGATIVE) Urine Nitrite (NEGATIVE) Urine Bilirubin (NEGATIVE) Urine Urobilinogen (0.2-1.0) EU/dL Ur Leukocyte Esterase (NEGATIVE) Urine RBC (0-2) #/HPF Urine WBC (NONE SEEN) #/HPF Ur Squamous Epith Cells (NONE/RARE) #/LPF Urine Crystals (None Seen) #/HPF Amorphous Sediment Urine Bacteria (NONE SEEN) #/HPF Urine Casts (NONE SEEN) #/LPF Hyaline Casts Urine Mucus (NONE SEEN) Ur Culture Indicated? Urine Opiates Screen (NEGATIVE) Ur Buprenorphine Scrn (NEGATIVE) Ur Oxycodone Screen (NEGATIVE) Urine Methadone Screen (NEGATIVE) Ur Barbiturates Screen (NEGATIVE) U Tricyclic Antidepress (NEGATIVE) Ur Phencyclidine Scrn (NEGATIVE) Ur Amphetamines Screen (NEGATIVE) U Methamphetamines Scrn (NEGATIVE) U Benzodiazepines Scrn (NEGATIVE) Urine Cocaine Screen (NEGATIVE) U Cannabinoids Screen (NEGATIVE) Adenovirus (PCR) Not detected (NOT DETECTE) C. pneumoniae DNA (PCR) Not detected (NOT DETECTE) Coronavirus Type OC43 Not detected (NOT DETECTE) Coronavirus Type HKU1 Not detected (NOT DETECTE) Coronavirus Type 229E Not detected (NOT DETECTE) Coronavirus Type NL63 Not detected (NOT DETECTE) Human Metapneumovir PCR Not detected (NOT DETECTE) M. pneumoniae (PCR) Not detected (NOT DETECTE) Parainfluenza PCR Not detected (NOT DETECTE) Parainfluenza 2 (PCR) Not detected (NOT DETECTE) Parainfluenza 3 (PCR) Not detected (NOT DETECTE) Parainfluenza 4 (PCR) Not detected (NOT DETECTE) RSV (RT-PCR) Not detected (NOT DETECTE) Entero/Rhino (PCR) Not detected (NOT DETECTE) SARS-CoV-2 (PCR) Not detected (NOT DETECTE) Streptococcus Screen Positive A Bordetella pertussis (PCR) Not detected (NOT DETECTE) B parapertussis DNA PCR Not detected (NOT DETECTE) Influenza Type A (PCR) Not detected (NOT DETECTE) Influenza Type B (PCR) Not detected (NOT DETECTE) 02/05/24 02/06/24 Range/Units 23:36 01:09 WBC (4.0-11.0) 10^3/uL RBC (4.70-6.10) 10^6/uL Hgb (14.0-18.0) g/dL Hct (42.0-54.0) % MCV (80.0-94.0) fL MCH (25.9-34.0) pg MCHC (29.9-35.2) g/dL RDW (11.0-15.0) % Plt Count (150-450) 10^3/uL MPV (9.5-13.5) fL Seg Neuts % (Manual) Band Neutrophils % (0-5) % Lymphocytes % (Manual) (20.5-60.0) % Atypical Lymphs % (Man) % Monocytes % (Manual) (1.7-12.0) % Eosinophils % (Manual) (0.9-7.0) % Basophils % (Manual) (0.2-2.0) % Neutrophils # (Manual) (1.4-6.5) 10^3/uL Band Neutrophils # (0.0-0.3) 10^3/uL Lymphocytes # (Manual) (1.20-3.80) 10^3/uL Abs Atypical Lymphs Man Monocytes # (Manual) (0.30-0.80) 10^3/uL Eosinophils # (Manual) (0.00-0.70) 10^3/uL Basophils # (Manual) (0.00-0.10) 10^3/uL Sodium (136-145) mmol/L Potassium (3.5-5.1) mmol/L Chloride (98-107) mmol/L Carbon Dioxide (21.0-32.0) mmol/L Anion Gap BUN (7.0-18.0) mg/dL Creatinine (0.70-1.30) mg/dL Est GFR ( Amer) (>=60) Est GFR (Non-Af Amer) (>=60) BUN/Creatinine Ratio Glucose (74-106) mg/dL Lactate 1.3 (0.4-2.0) mmol/L Calcium (8.5-10.1) mg/dL Total Bilirubin (0.2-1.0) mg/dL AST (15-37) U/L ALT (16-63) U/L Alkaline Phosphatase (46-116) U/L Troponin I High Sens (4.0-76.1) pg/mL Total Protein (6.4-8.2) g/dL Albumin (3.4-5.0) g/dL Globulin g/dL Albumin/Globulin Ratio Urine Color Dk. orange (YELLOW) Urine Clarity Clear (CLEAR) Urine pH 5.0 (5.0-9.0) Ur Specific [place] >=1.030 A (1.005-1.025) Urine Protein 100 A (NEG/TRACE) mg/dL Urine Glucose (UA) Negative (NEGATIVE) mg/dL Urine Ketones Trace A (NEGATIVE) mg/dL Urine Occult Blood Small A (NEGATIVE) Urine Nitrite Negative (NEGATIVE) Urine Bilirubin Moderate A (NEGATIVE) Urine Urobilinogen 1.0 (0.2-1.0) EU/dL Ur Leukocyte Esterase Negative (NEGATIVE) Urine RBC 5-10 A (0-2) #/HPF Urine WBC 5-10 A (NONE SEEN) #/HPF Ur Squamous Epith Cells Few A (NONE/RARE) #/LPF Urine Crystals Seen A (None Seen) #/HPF Amorphous Sediment Moderate Urine Bacteria Trace A (NONE SEEN) #/HPF Urine Casts Seen A (NONE SEEN) #/LPF Hyaline Casts Many Urine Mucus None seen (NONE SEEN) Ur Culture Indicated? Yes Urine Opiates Screen Negative (NEGATIVE) Ur Buprenorphine Scrn Negative (NEGATIVE) Ur Oxycodone Screen Negative (NEGATIVE) Urine Methadone Screen Negative (NEGATIVE) Ur Barbiturates Screen Negative (NEGATIVE) U Tricyclic Antidepress Negative (NEGATIVE) Ur Phencyclidine Scrn Negative (NEGATIVE) Ur Amphetamines Screen Negative (NEGATIVE) U Methamphetamines Scrn Negative (NEGATIVE) U Benzodiazepines Scrn Negative (NEGATIVE) Urine Cocaine Screen Negative (NEGATIVE) U Cannabinoids Screen Positive A (NEGATIVE) Adenovirus (PCR) (NOT DETECTE) C. pneumoniae DNA (PCR) (NOT DETECTE) Coronavirus Type OC43 (NOT DETECTE) Coronavirus Type HKU1 (NOT DETECTE) Coronavirus Type 229E (NOT DETECTE) Coronavirus Type NL63 (NOT DETECTE) Human Metapneumovir PCR (NOT DETECTE) M. pneumoniae (PCR) (NOT DETECTE) Parainfluenza PCR (NOT DETECTE) Parainfluenza 2 (PCR) (NOT DETECTE) Parainfluenza 3 (PCR) (NOT DETECTE) Parainfluenza 4 (PCR) (NOT DETECTE) RSV (RT-PCR) (NOT DETECTE) Entero/Rhino (PCR) (NOT DETECTE) SARS-CoV-2 (PCR) (NOT DETECTE) Streptococcus Screen Bordetella pertussis (PCR) (NOT DETECTE) B parapertussis DNA PCR (NOT DETECTE) Influenza Type A (PCR) (NOT DETECTE) Influenza Type B (PCR) (NOT DETECTE) ECG Data Attestation: I personally reviewed and interpreted this ECG as follows: (Sinus rhythm at 95 beats for minute, incomplete right bundle-branch block, moderate right axis deviation, no acute ST segment elevation or T-wave inversion) Critical Care Time Critical Care Time Critical Care Time: Yes Total Critical Care Time: 45 Attestation: . Discharge Plan Discharge Chief Complaint: Nausea/Vomiting/Diarrhea Clinical Impression: Acute kidney injury, Hyperbilirubinemia, Elevated liver enzymes, Acute streptococcal pharyngitis, Marijuana abuse, continuous, Nausea and vomiting, Pneumonia Patient Disposition: Admitted As Inpatient Time of Disposition Decision: 04:02 Condition: Fair Prescriptions / Home Meds: No Action fluoxetine 40 mg capsule 60 mg PO BEDTIME olanzapine 2.5 mg tablet 2.5 mg PO BEDTIME omeprazole 20 mg capsule,delayed release(DR/EC) 20 mg PO DAILY amlodipine 10 mg tablet 10 mg PO DAILY Qty: 30 0RF fluoxetine 60 mg tablet 60 mg PO QPM pantoprazole [Protonix] 40 mg tablet,delayed release (DR/EC) 40 mg PO DAILY Qty: 7 0RF hyoscyamine sulfate [Levsin] 0.125 mg tablet 0.125 mg PO Q6H PRN (Reason: abdominal pain) Qty: 12 0RF ondansetron 4 mg tablet,disintegrating 4 mg PO Q6H PRN (Reason: nausea and vomiting) Qty: 12 0RF Print Language: Moldovan Referrals: Physician,Non-Staff, MD [Primary Care Provider] - 1 week
--- NOTE | 2024-02-05 21:59 | ECG_ITS ---
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
[2024-02-05 22:15] VITALS: PULSE 95
[2024-02-05 22:16] LABS: Adenovirus NOT DETECTED (NOT DETECTE); Bordetella parapertussis NOT DETECTED (NOT DETECTE); Coronavirus 229E NOT DETECTED (NOT DETECTE); Coronavirus HKU1 NOT DETECTED (NOT DETECTE); Coronavirus NL63 NOT DETECTED (NOT DETECTE); Coronavirus OC43 NOT DETECTED (NOT DETECTE); Human Metapneumovirus NOT DETECTED (NOT DETECTE); Human Rhinovirus/Enterovirus NOT DETECTED (NOT DETECTE); Influenza A NOT DETECTED (NOT DETECTE); Influenza B NOT DETECTED (NOT DETECTE); Mycoplasma pneumoniae NOT DETECTED (NOT DETECTE); Parainfluenza Virus 1 NOT DETECTED (NOT DETECTE); Parainfluenza Virus 2 NOT DETECTED (NOT DETECTE); Parainfluenza Virus 3 NOT DETECTED (NOT DETECTE); Parainfluenza Virus 4 NOT DETECTED (NOT DETECTE); Respiratory Syncytial Virus NOT DETECTED (NOT DETECTE); SARS-CoV-2 NOT DETECTED (NOT DETECTE)
--- NOTE | 2024-02-05 22:22 | PC.NURSE ---
No SX at present.States N-V-D for last 3 days, none today
[2024-02-05 22:24] LABS: Hematocrit 46.5 % (42.0-54.0); Hemoglobin 15.1 g/dL (14.0-18.0); Mean Corpuscular HGB Conc 32.5 g/dL (29.9-35.2); Mean Corpuscular Hemoglobin 29.7 pg (25.9-34.0); Mean Corpuscular Volume 91.5 fL (80.0-94.0); Mean Platelet Volume 10.3 fL (9.5-13.5); Platelet Count 547 10^3/uL (150-450); Red Blood Count 5.08 10^6/uL (4.70-6.10)
[2024-02-05 22:30] LABS: Strep A Antigen Screen Positive
[2024-02-05 22:31] LABS: Internal Control Within Normal Limits
[2024-02-05] MEDS: 0.9 % SODIUM CHLORIDE 1,000 ML 1000 ML IV (22:31)
[2024-02-05] MEDS: ONDANSETRON PF 4 MG/2 ML VIAL IV (22:32)
[2024-02-05] MEDS: FAMOTIDINE/PF 20 MG/2 ML VIAL IV (22:32)
[2024-02-05 22:36] LABS: Alanine Aminotransferase 17 U/L (16-63); Albumin Globulin Ratio 0.6; Albumin Level 3.3 g/dL (3.4-5.0); Alkaline Phosphatase 133 U/L (46-116); Anion Gap 18.3; Aspartate Amino Transferase 13 U/L (15-37); BUN Creatinine Ratio 22.5; Bilirubin Total 2.7 mg/dL (0.2-1.0); Calcium 10.1 mg/dL (8.5-10.1); Carbon Dioxide 26.5 mmol/L (21.0-32.0); Chloride 98 mmol/L (98-107); Estimated GFR (African America 29 (>=60); Estimated GFR (Non-African Ame 24 (>=60); Globulin 5.9 g/dL; Glucose 147 mg/dL (74-106); Potassium 3.8 mmol/L (3.5-5.1); Sodium 139 mmol/L (136-145); Total Protein 9.2 g/dL (6.4-8.2); Troponin I High Sensitivity 20.3 pg/mL (4.0-76.1)
[2024-02-05 22:37] LABS: White Blood Count 36.5 10^3/uL (4.0-11.0)
[2024-02-05 22:38] VITALS: BP 118/86; PULSE 92; O2SAT 98
[2024-02-05 22:53] LABS: Atypical Lymphocytes Abs Man 1.09; Band Neutrophils Absolute 1.8 10^3/uL (0.0-0.3); Lymphocytes Absolute Manual 1.09 10^3/uL (1.20-3.80); Monocytes Absolute Manual 2.19 10^3/uL (0.30-0.80); Segmented Neut Absolute Manual 30.29 10^3/uL (1.4-6.5)
[2024-02-05] MEDS: AMPICILLIN SODIUM/SULBACTAM NA 3 GM in 0.9 % SODIUM CHLORIDE 100 ML IV (23:13)
[2024-02-05 23:24] LABS: Lactate/Lactic Acid 2.3 mmol/L (0.4-2.0)
[2024-02-05 23:48] LABS: Bilirubin Urine MODERATE (NEGATIVE); Blood Urine SMALL (NEGATIVE); Clarity Urine CLEAR (CLEAR); Color Urine DK. ORANGE (YELLOW); Glucose Urine UA NEGATIVE (NEGATIVE); Ketones Urine TRACE mg/dL (NEGATIVE); Leukocyte Esterase Urine NEGATIVE (NEGATIVE); Nitrite Urine NEGATIVE (NEGATIVE); Protein Urine 100 mg/dL (NEG/TRACE); Specific Gravity Urine >=1.030 (1.005-1.025)
[2024-02-05 23:56] LABS: Bacteria Urine TRACE #/HPF (NONE SEEN)
[2024-02-05 23:57] LABS: Amorphous Sediment Urine MODERATE; Cast Seen? SEEN #/LPF (NONE SEEN); Crystals Seen? Seen #/HPF (None Seen); Hyaline Casts Urine MANY; Mucus Urine NONE SEEN (NONE SEEN); Squamous Epithelial Cell Urine FEW #/LPF (NONE/RARE); Urine Culture Indicated YES
[2024-02-06] VITALS (18 sets, daily range): BP systolic 118–147; BP diastolic 72–98; PULSE 70–97; TEMP 36.2–37.1; O2SAT 94–97; BMI 24.8
[2024-02-06 00:02] LABS: Amphetamine Screen Urine NEGATIVE (NEGATIVE); Barbiturates Screen Urine NEGATIVE (NEGATIVE); Benzodiazepines Screen Urine NEGATIVE (NEGATIVE); Buprenorphine Screen Urine NEGATIVE (NEGATIVE); Cannabinoid Screen Urine POSITIVE (NEGATIVE); Cocaine Screen Urine NEGATIVE (NEGATIVE); Methadone Screen Urine NEGATIVE (NEGATIVE); Methamphetamines Screen Urine NEGATIVE (NEGATIVE); Opiate Screen Urine NEGATIVE (NEGATIVE); Oxycodone Screen Urine NEGATIVE (NEGATIVE); Phencyclidine Screen Urine NEGATIVE (NEGATIVE); Tricyclic Antidepressant Urine NEGATIVE (NEGATIVE)
--- NOTE | 2024-02-06 00:14 | XR_ITS ---
The [address] [address] Patient Name: GERALDINE RICCI MRN: [id number] date: 1980 Sex: M Assigned Patient Location: ER Current Patient Location: Accession/Order Number: [id number] Exam Date: 02/06/2024 00:40 Report Date: 02/06/2024 01:40 At the request of: ALEK MARKER Procedure: XR chest 2V EXAM: XR chest 2V HISTORY: R/O pneumonia COMPARISON: Abdominal chest x-ray series 06/15/2022. TECHNIQUE: 2 views chest x-rays frontal and lateral FINDINGS: Abnormal large left upper lung cavitary masses with air-fluid levels and surrounding lung consolidation. Borderline prominent heart size. No large pleural effusion, pneumothorax, or acute bony abnormality. XR/XR chest 2V IMPRESSION: Abnormal large left upper lung cavitary masses with air-fluid levels and surrounding lung consolidation. Recommend CT chest with contrast to evaluate for intrapulmonary abscess, cavitary pneumonia, and/or cavitary lung neoplasm with internal fluid levels. Electronically authenticated by: ALEXANDRU PINEDA Date: 02/06/2024 01:40
--- NOTE | 2024-02-06 00:14 | CT_ITS ---
[address] [address] Patient Name: GERALDINE RICCI MRN: [id number] date: 1980 Sex: M Assigned Patient Location: ER Current Patient Location: Accession/Order Number: [id number] Exam Date: 02/06/2024 00:40 Report Date: 02/06/2024 01:57 At the request of: ALEK MARKER Procedure: CT abdomen pelvis wo con EXAM: CT abdomen pelvis wo con HISTORY: elevated WBC, elevated LFTs COMPARISON: 11/04/2023 , 07/21/2023 TECHNIQUE: CT of abdomen and pelvis without intravenous contrast. Dose reduction techniques were achieved by using automated exposure control and/or adjustment of mA and/or kV according to patient size and/or use of iterative reconstruction technique. FINDINGS: Limited evaluation of the viscera/organs and vasculature without intravenous contrast. TUBES AND IMPLANTS: None. LOWER CHEST: Mild cardiomegaly. Small pericardial effusion measuring 7 millimeters in thickness. ABDOMEN and PELVIS ABDOMINAL WALL AND SOFT TISSUES: Unremarkable. BONES: No suspicious lesions. Mild degenerative changes of the spine. ARTERIES: Incompletely evaluated. Mild aortoiliac calcification without aneurysm VEINS: Incompletely evaluated. LYMPH NODES: Unremarkable. PERITONEUM/ RETROPERITONEUM: Unremarkable. BOWEL: No obstruction APPENDIX: Unremarkable LIVER: Unremarkable. GALLBLADDER: Unremarkable. BILE DUCTS: Not dilated SPLEEN: Calcified granulomata PANCREAS: Unremarkable. ADRENALS: Unremarkable. KIDNEYS/ URETERS: No stones or hydronephrosis. Left renal cyst. REPRODUCTIVE ORGANS: Unremarkable URINARY BLADDER: Unremarkable. CT/CT abdomen pelvis wo con IMPRESSION: No evidence of acute abdominopelvic process. Mild cardiomegaly. Small pericardial effusion. Electronically authenticated by: CHAD SERRANO Date: 02/06/2024 01:57
[2024-02-06] MEDS: 0.9 % SODIUM CHLORIDE 1,000 ML 1000 ML IV (00:18)
[2024-02-06 01:40] LABS: Lactate/Lactic Acid 1.3 mmol/L (0.4-2.0)
--- NOTE | 2024-02-06 02:00 | CT_ITS ---
The [address] [address] Patient Name: GERALDINE RICCI MRN: [id number] date: 1980 Sex: M Assigned Patient Location: ER Current Patient Location: Accession/Order Number: [id number] Exam Date: 02/06/2024 02:14 Report Date: 02/06/2024 03:44 At the request of: ALEK PACHECO Procedure: CT chest wo con EXAM: CT chest wo con HISTORY: lung mass on CXR, unable to use IV contrast COMPARISON: None. TECHNIQUE: Noncontrast axial CT images through the chest were obtained with coronal and sagittal reformats. Dose reduction techniques were achieved by using automated exposure control and/or adjustment of mA and/or kV according to patient size and/or use of iterative reconstruction technique. FINDINGS: There are advanced emphysematous changes in the lungs. There is mild bibasilar atelectasis. There are scattered calcified granulomas in the lungs. There is consolidation and patchy opacities in the left upper lobe. There are 2 air-fluid levels within the medial left upper lobe with the larger measuring up to 7.3 x 4.6 cm (series 3, image 47) and the smaller measuring up to 6.4 x 3.9 cm (series 3, image 56). The central airways are patent. No pleural effusion or pneumothorax is seen. The cardiac chambers appear normal in size. The thoracic aorta and pulmonary arteries are normal in caliber. There is no mediastinal, hilar, or axillary lymphadenopathy by CT size criteria. There are calcified right hilar lymph nodes. The thyroid and esophagus appear unremarkable. Images through the upper abdomen reveal no significant abnormalities. Splenic calcifications are suggestive of prior granulomatous disease. No suspicious or aggressive bone lesions are seen. No acute fractures are seen. CT/CT chest wo con IMPRESSION: 1. Findings concerning for cavitary pneumonia in the left upper lobe. There are 2 large cavitary components as described. Follow-up imaging after treatment is recommended to document resolution and exclude any underlying lesion. 2. Advanced emphysematous changes. Electronically authenticated by: Wilfredo GOMEZ Date: 02/06/2024 03:44
[2024-02-06] MEDS: CEFTRIAXONE 1,000 MG in 0.9 % SODIUM CHLORIDE 50 ML 100 MG IV (03:22)
[2024-02-06] MEDS: AZITHROMYCIN 500 MG in 0.9 % SODIUM CHLORIDE 250 ML 250 MG IV (04:06)
[2024-02-06] MEDS: 0.9 % SODIUM CHLORIDE 1,000 ML 125 ML IV (04:06)
--- OUTSIDE RECORDS SUMMARY | 2024-02-06 05:00 | XMS_ITS | CCD ---
Author Organization [facility] Care Team Providers Care Bilingual Recruiter Name Role Phone RANJANA TRAYLOR Primary Care Physician [phone] COOPERLAnupam Attending Unavailable NILL, Anupam Bob Attending [...] Medication Allergies] Propensity to adverse reactions (disorder) [facility] Repository Medications Current Medications Medication Drug [...] 01-30-2023 HCV AB Non-Reactive Normal Non Reactive [facility] Comment on above: Performed By: #### L ACT #### [facility] [address] [address] [address] Etienne Fitch Interpretation: Comment Normal [facility] Comment on above: Result Comment: Not infected with HCV unless early or acute infection is suspected (which may be delayed in an immunocompromised individual), or other evidence exists to indicate HCV infection. Performed By: #### L ACT #### [facility] [address], [place] [address] Dr. Etienne Fitch HIV 1 AND 2 WITH REFLEXon HIV Screen 4th Generation wRfx Non-Reactive Normal Non Reactive [facility] Comment on above: Result Comment: HIV Negative HIV-1/HIV-2 antibodies and HIV-1 p24 antigen were NOT detected. There is no laboratory evidence of HIV infection. Performed By: #### H IV12 #### [facility] [address] [address] [address] Etienne Fitch LIPID PROFILEon 01-29-2023 CHOL-HDL RATIO NORM SEE BELOW Normal [facility] Comment on above: Result Comment: 3.3 - 4.4 LOW RISK 4.4 - 7.1 AVERAGE RISK 7.1 - 11.0 MODERATE RISK >11.0 HIGH RISK Performed By: #### U MICRO, ERUR #### [facility] [address] [address] [address] Etienne Fitch Cholesterol [Mass/Vol] 196 mg/dL Normal <=200 [facility] Comment on above: Performed By: #### U MICRO, ERUR #### [facility] [address] [address] [address] Etienne Fitch Cholesterol in HDL [Mass/Vol] 78 mg/dL Critically high 40-60 [facility] Comment on above: Performed By: #### U MICRO, ERUR #### [facility] [address] [address] [address] Etienne Fitch Cholesterol in LDL [Mass/Vol] 106.6 mg/dL Normal [facility] Comment on above: Performed By: #### U MICRO, ERUR #### [facility] [address] [address] [address] Etienne Fitch Cholesterol.total /Cholesterol in HDL [Mass ratio] 2.5 {ratio} Normal [facility] Comment on above: Performed By: #### U MICRO, ERUR #### [facility] [address] [address] [address] Etienne Fitch HDL NORMAL > or = 60 mg/dl - LO W CARDIOVASCULAR RISK <40 mg/dl - HIGH CARDIOVASCULAR RISK Normal [facility] Comment on above: Performed By: #### U MICRO, ERUR #### [facility] [address] [address] [address] Etienne Fitch LDL CALC NORMAL SEE BELOW Normal [facility] Comment on above: Result Comment: <100 mg/dl OPTIMAL 100 - 129 mg/dl NEAR OR ABOVE OPTIMAL 130 - 159 mg/dl BORDERLINE HIGH 160 - 189 mg/dl HIGH >190 mg/dl VERY HIGH Performed By: #### U MICRO, ERUR #### [facility] [address] [place] [address] Dr. Etienne Fitch Triglyceride [Mass/Vol] 57 mg/dL Normal <=150 [facility] Comment on above: Performed By: #### U MICRO, ERUR #### [facility] [address] [place] [address] Dr. Etienne Fitch VLDL CALC 11.4 mg/dL Normal [facility] Comment on above: Performed By: #### U MICRO, ERUR #### [facility] [address] [place] [address] Dr. Etienne Fitch PROF CHEM 8 (BAS METB)on Anion gap [Moles/Vol] 7.4 mmol/L Normal [facility] Comment on above: Performed By: #### U MICRO, ERUR #### [facility] [address] [place] [address] Dr. Etienne Fitch Calcium [Mass/Vol] 10.0 mg/dL Normal 8.5-10.1 [facility] Comment on above: Performed By: #### U MICRO, ERUR #### [facility] [address] [place] [address] Dr. Etienne Fitch Chloride [Moles/Vol] 101 mmol/L Normal 98-107 [facility] Comment on above: Performed By: #### U MICRO, ERUR #### [facility] [address] [place] [address] Dr. Etienne Fitch CO2 [Moles/Vol] 34.0 mmol/L Critically high 21.0-32.0 [facility] Comment on above: Performed By: #### U MICRO, ERUR #### [facility] [address] [place] [address] Dr. Etienne Fitch Creatinine [Mass/Vol] 1.27 mg/dL Normal 0.70-1.30 [facility] Comment on above: Performed By: #### U MICRO, ERUR #### [facility] [address] [address] [address] Etienne Fitch EGFR-AF SAUDI ARABIAN >60 Normal >=60 [facility] Comment on above: Performed By: #### U MICRO, ERUR #### [facility] [address] [address] [address] Etienne Fitch EGFR-NON AF SAUDI ARABIAN >60 Normal >=60 [facility] Comment on above: Performed By: #### U MICRO, ERUR #### [facility] [address] [address] [address] Etienne Fitch Glucose [Mass/Vol] 116 mg/dL Critically high 74-106 [facility] Comment on above: Performed By: #### U MICRO, ERUR #### [facility] [address] [place] [address] Dr. Etienne Fitch Potassium [Moles/Vol] 4.4 mmol/L Normal 3.5-5.1 [facility] Comment on above: Performed By: #### U MICRO, ERUR #### [facility] [address] [address] [address] Etienne Fitch Sodium [Moles/Vol] 138 mmol/L Normal 136-145 [facility] Comment on above: Performed By: #### U MICRO, ERUR #### [facility] [address] [address] [address] Etienne Fitch Urea nitrogen [Mass/Vol] 33.0 mg/dL Critically high 7.0-18.0 [facility] Comment on above: Performed By: #### U MICRO, ERUR #### [facility] [address] [address] [address] Etienne Fitch Urea nitrogen/Creatini ne [Mass ratio] 26.0 mg/mg Normal [facility] Comment on above: Performed By: #### U MICRO, ERUR #### [facility] [address] [place] [address] Dr. Etienne Fitch CBC AUTO DIFFon 12-12-2022 BASO # 0.0 103/ul Normal 0.0-0.1 [facility] Comment on above: Performed By: #### C BC #### [facility] [address] [address] [address] Etienne Fitch Basophils/100 WBC (Bld) 0.2 % Normal 0.2-2.0 [facility] Comment on above: Performed By: #### C BC #### [facility] [address] [address] [address] Etienne Fitch EO # 0.0 103/ul Normal 0.0-0.7 [facility] Comment on above: Performed By: #### C BC #### [facility] [address] [address] [address] Etienne Fitch Eosinophils/100 WBC (Bld) 0.1 % Critically low 0.9-7.0 [facility] Comment on above: Performed By: #### C BC #### [facility] [address] [place] [address] Dr. Etienne Fitch Erythrocyte distribution width (RBC) [Ratio] 12.8 % Normal 11.0-15.0 [facility] Comment on above: Performed By: #### C BC #### [facility] [address] [place] [address] Dr. Etienne Fitch Hematocrit (Bld) [Volume fraction] 55.0 % Critically high 42.0-54.0 [facility] Comment on above: Performed By: #### C BC #### [facility] [address] [place] [address] Dr. Etienne Fitch Hemoglobin (Bld) [Mass/Vol] 18.5 g/dL Critically high 14.0-18.0 [facility] Comment on above: Performed By: #### C BC #### [facility] [address] [place] [address] Dr. Etienne Fitch IG # 0.07 10e3/ul Critically high 0.00-0.03 [facility] Comment on above: Performed By: #### C BC #### [facility] [address] [place] [address] Dr. Etienne Fitch IG % 0.5 % Normal 0.0-0.5 [facility] Comment on above: Performed By: #### C BC #### [facility] [address] [place] [address] Dr. Etienne Fitch LYMPH # 1.4 103/ul Normal 1.2-3.8 [facility] Comment on above: Performed By: #### C BC #### [facility] [address] [place] [address] Dr. Etienne Fitch Lymphocytes/100 WBC (Bld) 10.1 % Critically low 20.5-60.0 [facility] Comment on above: Performed By: #### C BC #### [facility] [address] [place] [address] Dr. Etienne Fitch MANUAL DIFF REQ NO Normal [facility] Comment on above: Performed By: #### C BC #### [facility] [address] [place] [address] Dr. Etienne Fitch MCH (RBC) [Entitic mass] 29.6 pg Normal 25.9-34.0 [facility] Comment on above: Performed By: #### C BC #### [facility] [address] [place] [address] Dr. Etienne Fitch MCHC (RBC) [Mass/Vol] 33.6 g/dL Normal 29.9-35.2 [facility] Comment on above: Performed By: #### C BC #### [facility] [address] [place] [address] Dr. Etienne Fitch MCV (RBC) [Entitic vol] 87.9 fL Normal 80.0-94.0 [facility] Comment on above: Performed By: #### C BC #### [facility] [address] [place] [address] Dr. Etienne Fitch MONO # 1.5 103/ul Critically high 0.3-0.8 [facility] Comment on above: Performed By: #### C BC #### [facility] [address] [place] [address] Dr. Etienne Fitch Monocytes/100 WBC (Bld) 11.3 % Normal 1.7-12.0 [facility] Comment on above: Performed By: #### C BC #### [facility] [address] [place] [address] Dr. Etienne Fitch NEUT # 10.6 103/ul Critically high 1.4-6.5 [facility] Comment on above: Performed By: #### C BC #### [facility] [address] [place] [address] Dr. Etienne Fitch Neutrophils/100 WBC (Bld) 77.8 % Critically high 43.0-75.0 [facility] Comment on above: Performed By: #### C BC #### [facility] [address] [place] [address] Dr. Etienne Fitch Platelet mean volume (Bld) [Entitic vol] 11.1 fL Normal 9.5-13.5 [facility] Comment on above: Performed By: #### C BC #### [facility] [address] [place] [address] Dr. Etienne Fitch PLT 371 103/ul Normal 150-450 [facility] Comment on above: Performed By: #### C BC #### [facility] [address] [place] [address] Dr. Etienne Fitch RBC 6.26 106/ul Critically high 4.70-6.10 [facility] Comment on above: Performed By: #### C BC #### [facility] [address] [place] [address] Dr. Etienne Fitch WBC 13.6 103/ul Critically high 4.0-11.0 [facility] Comment on above: Performed By: #### C BC #### [facility] [address] [place] [address] Dr. Etienne Fitch [facility] SARS-CoV-2 (COVID-19) RNA KWABENA+probe Ql (Unsp spec) Not detected Normal NOT DETECTED [facility] Comment on above: Result Comment: [...] for this test is supported by the Manager Contact of Health and Human Service's declaration that [...] Performed By: #### U MICRO, ERUR #### [facility] [address] [place] [address] Dr. Etienne iFtch ER URINE PROFILEon 3 Bilirubin Ql (U) Negative Normal NEGATIVE [facility] Comment on above: Performed By: #### U MICRO, ERUR #### [facility] [address] [place] [address] Dr. Etienne Fitch Clarity (U) CLEAR Normal CLEAR [facility] Comment on above: Performed By: #### U MICRO, ERUR #### [facility] [address] [place] [address] Dr. Etienne Fitch Color (U) LT. YELLOW Normal YELLOW [facility] Comment on above: Performed By: #### U MICRO, ERUR #### [facility] [address] [place] [address] Dr. Etienne Fitch ERUAHD A micrscopic examina tion will be performed if indicated. Normal [facility] Comment on above: Performed By: #### U MICRO, ERUR #### [facility] [address] [place] [address] Dr. Etienne Fitch Glucose Ql (U) Negative Normal NEGATIVE [facility] Comment on above: Performed By: #### U MICRO, ERUR #### [facility] [address] [place] [address] Dr. Etienne Fitch Hemoglobin Ql (U) Negative Normal NEGATIVE [facility] Comment on above: Performed By: #### U MICRO, ERUR #### [facility] [address] [address] [address] Etienne Fitch Ketones Ql (U) Negative Normal NEGATIVE [facility] Comment on above: Performed By: #### U MICRO, ERUR #### [facility] [address] [address] [address] Etienne Fitch LEUKOCYTES Negative Normal NEGATIVE [facility] Comment on above: Performed By: #### U MICRO, ERUR #### [facility] [address] [address] [address] Etienne Fitch Nitrite Ql (U) Negative Normal NEGATIVE [facility] Comment on above: Performed By: #### U MICRO, ERUR #### [facility] [address] [place] [address] Dr. Etienne Fitch pH (U) 6.0 [pH] Normal 5-9 [facility] Comment on above: Performed By: #### U MICRO, ERUR #### [facility] [address] [place] [address] Dr. Etienne Fitch SPEC GRAVITY 1.015 Normal 1.005-<=1.02 5 [facility] Comment on above: Performed By: #### U MICRO, ERUR #### [facility] [address] [address] [address] Etienne Fitch UA PROTEIN Negative Normal NEGATIVE/ TRACE [facility] Comment on above: Performed By: #### U MICRO, ERUR #### [facility] [address] [place] [address] Dr. Etienne Fitch UR MICRO IND NOT INDICATED Normal [facility] Comment on above: Performed By: #### U MICRO, ERUR #### [facility] [address] [place] [address] Dr. Etienne Fitch Urobilinogen Qn (U) 0.2 {Nesha'U}/dL Normal 0.2 - 1.0 [facility] Comment on above: Performed By: #### U MICRO, ERUR #### [facility] [address] [place] [address] Dr. Etienne Fitch INFLUENZA A AND B AGon 12-12 INFLUANEGH SEE BELOW Normal [facility] Comment on above: Result Comment: Nega tive for Flu A protein angiten. Infection due to Flu A cannot be ruled out. Flu A angiten in the sample may be below the detection limit of the test. Performed By: #### I NFLUAB #### [facility] [address] [place] [address] Dr. Etienne Fitch [facility] SEE BELOW Normal [facility] Comment on above: Result Comment: Nega tive for Flu B protein antigen. Infection due to Flu B cannot be ruled out. Flu B antigen in the sample may be below the detection limit of the test. Performed By: #### I NFLUAB #### [facility] [address] [place] [address] Dr. Etienne Fitch INFLUENZA A AG Negative Normal NEGATIVE SEE COMMENT [facility] Comment on above: Performed By: #### I NFLUAB #### [facility] [address] [place] [address] Dr. Etienne Fitch INFLUENZA B AG Negative Normal NEGATIVE SEE COMMENT [facility] Comment on above: Performed By: #### I NFLUAB #### [facility] [address] [place] [address] Dr. Etienne Fitch PROF 14(COMP METB)on 023 Albumin [Mass/Vol] 4.4 g/dL Normal 3.4-5.0 [facility] Comment on above: Performed By: #### U MICRO, ERUR #### [facility] [address] [place] [address] Dr. Etienne Fitch Albumin/Globulin [Mass ratio] 1.0 {ratio} Normal [facility] Comment on above: Performed By: #### U MICRO, ERUR #### [facility] [address] [place] [address] Dr. Etienne Fitch ALP [Catalytic activity/Vol] 107 U/L Normal 46-116 [facility] Comment on above: Performed By: #### U MICRO, ERUR #### [facility] [address] [place] [address] Dr. Etienne Fitch ALT [Catalytic activity/Vol] 23 U/L Normal 16-63 [facility] Comment on above: Performed By: #### U MICRO, ERUR #### [facility] [address] [address] [address] Etienne Fitch Anion gap [Moles/Vol] 19.1 mmol/L Normal [facility] Comment on above: Performed By: #### U MICRO, ERUR #### [facility] [address] [address] [address] Etienne Fitch AST [Catalytic activity/Vol] 24 U/L Normal 15-37 [facility] Comment on above: Performed By: #### U MICRO, ERUR #### [facility] [address] [address] [address] Etienne Fitch Bilirubin [Mass/Vol] 2.2 mg/dL Critically high 0.2-1.0 [facility] Comment on above: Performed By: #### U MICRO, ERUR #### [facility] [address] [address] [address] Etienne Fitch Calcium [Mass/Vol] 9.5 mg/dL Normal 8.5-10.1 [facility] Comment on above: Performed By: #### U MICRO, ERUR #### [facility] [address] [address] [address] Etienne Fitch Chloride [Moles/Vol] 102 mmol/L Normal 98-107 [facility] Comment on above: Performed By: #### U MICRO, ERUR #### [facility] [address] [address] [address] Etienne Fitch CO2 [Moles/Vol] 26.5 mmol/L Normal 21.0-32.0 [facility] Comment on above: Performed By: #### U MICRO, ERUR #### [facility] [address] [address] [address] Etienne Fitch Creatinine [Mass/Vol] 2.27 mg/dL Critically high 0.70-1.30 [facility] Comment on above: Performed By: #### U MICRO, ERUR #### [facility] [address] [address] [address] Etienne Fitch EGFR-AF SAUDI ARABIAN 38 mL/min/1.73m2 Critically low >=60 [facility] Comment on above: Performed By: #### U MICRO, ERUR #### [facility] [address] [address] [address] Etienne Fitch EGFR-NON AF SAUDI ARABIAN 32 mL/min/1.73m2 Critically low >=60 [facility] Comment on above: Performed By: #### U MICRO, ERUR #### [facility] [address] [place] [address] Dr. Etienne Fitch Globulin (S) [Mass/Vol] 4.4 g/dL Normal [facility] Comment on above: Performed By: #### U MICRO, ERUR #### [facility] [address] [place] [address] Dr. Etienne Fitch Glucose [Mass/Vol] 136 mg/dL Critically high 74-106 [facility] Comment on above: Performed By: #### U MICRO, ERUR #### [facility] [address] [place] [address] Dr. Etienne Fitch Potassium [Moles/Vol] 4.6 mmol/L Normal 3.5-5.1 [facility] Comment on above: Performed By: #### U MICRO, ERUR #### [facility] [address] [place] [address] Dr. Etienne Fitch Protein [Mass/Vol] 8.8 g/dL Critically high 6.4-8.2 [facility] Comment on above: Performed By: #### U MICRO, ERUR #### [facility] [address] [place] [address] Dr. Etienne Fitch Sodium [Moles/Vol] 143 mmol/L Normal 136-145 [facility] Comment on above: Performed By: #### U MICRO, ERUR #### [facility] [address] [place] [address] Dr. Etienne Fitch Urea nitrogen [Mass/Vol] 89.0 mg/dL Critically high 7.0-18.0 [facility] Comment on above: Performed By: #### U MICRO, ERUR #### [facility] [address] [place] [address] Dr. Etienne Fitch Urea nitrogen/Creatini ne [Mass ratio] 42.0 mg/mg Normal [facility] Comment on above: Performed By: #### U MICRO, ERUR #### [facility] [address] [address] [address] Etienne Fitch PROF CHEM 8 (BAS METB)on Anion gap [Moles/Vol] 12.4 mmol/L Normal [facility] Comment on above: Performed By: #### U MICRO, ERUR #### [facility] [address] [place] [address] Dr. Etienne Fitch Calcium [Mass/Vol] 8.9 mg/dL Normal 8.5-10.1 [facility] Comment on above: Performed By: #### U MICRO, ERUR #### [facility] [address] [place] [address] Dr. Etienne Fitch Chloride [Moles/Vol] 110 mmol/L Critically high 98-107 [facility] Comment on above: Performed By: #### U MICRO, ERUR #### [facility] [address] [address] [address] Etienne Fitch CO2 [Moles/Vol] 29.6 mmol/L Normal 21.0-32.0 [facility] Comment on above: Performed By: #### U MICRO, ERUR #### [facility] [address] [address] [address] Etienne Fitch Creatinine [Mass/Vol] 2.04 mg/dL Critically high 0.70-1.30 [facility] Comment on above: Performed By: #### U MICRO, ERUR #### [facility] [address] [address] [address] Etienne Fitch EGFR-AF SAUDI ARABIAN 43 mL/min/1.73m2 Critically low >=60 [facility] Comment on above: Performed By: #### U MICRO, ERUR #### [facility] [address] [address] [address] Etienne Fitch EGFR-NON AF SAUDI ARABIAN 36 mL/min/1.73m2 Critically low >=60 [facility] Comment on above: Performed By: #### U MICRO, ERUR #### [facility] [address] [address] [address] Etienne Fitch Glucose [Mass/Vol] 112 mg/dL Critically high 74-106 [facility] Comment on above: Performed By: #### U MICRO, ERUR #### [facility] [address] [address] [address] Etienne Fitch Potassium [Moles/Vol] 5.0 mmol/L Normal 3.5-5.1 [facility] Comment on above: Performed By: #### U MICRO, ERUR #### [facility] [address] [address] [address] Etienne Fitch Sodium [Moles/Vol] 147 mmol/L Critically high 136-145 [facility] Comment on above: Performed By: #### U MICRO, ERUR #### [facility] [address] [address] [address] Etienne Fitch Urea nitrogen [Mass/Vol] 79.0 mg/dL Critically high 7.0-18.0 [facility] Comment on above: Performed By: #### U MICRO, ERUR #### [facility] [address] [address] [address] Etienne Fitch Urea nitrogen/Creatini ne [Mass ratio] 38.7 mg/mg Normal [facility] Comment on above: Performed By: #### U MICRO, ERUR #### [facility] [address] [address] [address] Etienne Fitch Ambulatory Visit Summaryon 1 [...] & vomiting RLQ abdominal pain Normal [facility] General Surgery Office/Clini c Noteon 08-07-2022 [...] Father. Heart disease: Mother. TIA: Mother. Normal [facility] Comment on above: Result Comment: Elec tronically Signed By: SAMIR MOCK, Anupam Thompson\Date and Time Signed: 08/07/22 13:24 EDT Reminderson 08-07-2022 Reminders - From: Harika Simmons LPN To: N - Clinical; Sent: 08/07/2022 13:07:35 EDT Show up: 06/23/2032 07:00:00 EDT Subject: colonoscopy recall Due Date/Time: 07/24/2032 07:00:00 EDT Reminder/Recall Patient is due for screening colonoscopy 07/24/2032. Normal [facility] Pathology Noteon 07-29-2022 Pathology Note [id number]#1.00CD:127 Normal [facility] Outside Colonoscopyon 2021 Outside Colonoscopy [id number]#1.00CD:127 Normal [facility] RAD - MRI Reporton RAD - MRI Report [id number]#1.00CD:127 Normal [facility] Lab Reportson 07-22-2022 Lab Reports [id number]#1.00CD:127 Normal [facility] RAD - MRI Reporton RAD - MRI Report [id number]#1.00CD:127 Normal [facility] Covid-19 PCR (CVDTB)on 06-28 SARS-CoV-2 (COVID-19) RNA KWABENA+probe Ql (Unsp spec) Not detected Normal NOT DETECTED [facility] Comment on above: Result Comment: This test is not yet approved or cleared by the [place] FDA. When there are no FDA-approved or cleared tests available, and other criteria are met, FDA can make tests available under an emergency access mechanism called an Emergency Use Authorization (EUA). The EUA for this test is supported by the Manager Contact of Health and Human Service's (HHS's) declaration [...] consistent with SARS-CoV-2. Performed By: #### [facility] #### [facility] [address] [place] [address] Dr. Etienne Fitch MRI ABDOMEN WO CONon [...] by: ALEXA HOWARD Date: 2022-07-19 07:49 Normal [facility] Consent for Procedure/Surger yon 07-04-2022 Consent for Procedure/Surgery [id number]#1.00CD:127 Normal [facility] Ambulatory Visit Summaryon 0 07-02-2022 Ambulatory [...] Nausea & vomiting RLQ abdominal pain Normal [facility] ED Note-Physicianon 07-02-20 ED Note-Physician [id number]#1.00CD:127 Normal [facility] RAD - MISCon 06-27-2022 RAD - MISC [id number]#1.00CD:127 Normal [facility] AMYLASEon 06-15-2022 Amylase [Catalytic activity/Vol] 47 U/L Normal 25-115 [facility] Comment on above: Performed By: #### L ACT #### [facility] [address] [place] [address] Dr. Etienne Fitch CBC AUTO DIFFon 06-15-2022 BASO # 0.1 103/ul Normal 0.0-0.1 [facility] Comment on above: Performed By: #### U MICRO, ERUR #### [facility] [address] [place] [address] Dr. Etienne Fitch Basophils/100 WBC (Bld) 0.5 % Normal 0.2-2.0 [facility] Comment on above: Performed By: #### U MICRO, ERUR #### [facility] [address] [place] [address] Dr. Etienne Fitch EO # 0.0 103/ul Normal 0.0-0.7 [facility] Comment on above: Performed By: #### U MICRO, ERUR #### [facility] [address] [place] [address] Dr. Etienne Fitch Eosinophils/100 WBC (Bld) 0.1 % Critically low 0.9-7.0 [facility] Comment on above: Performed By: #### U MICRO, ERUR #### [facility] [address] [place] [address] Dr. Etienne Fitch Erythrocyte distribution width (RBC) [Ratio] 11.9 % Normal 11.0-15.0 [facility] Comment on above: Performed By: #### U MICRO, ERUR #### [facility] [address] [place] [address] Dr. Etienne Fitch Hematocrit (Bld) [Volume fraction] 48.4 % Normal 42.0-54.0 [facility] Comment on above: Performed By: #### U MICRO, ERUR #### [facility] [address] [place] [address] Dr. Etienne Fitch Hemoglobin (Bld) [Mass/Vol] 16.6 g/dL Normal 14.0-18.0 [facility] Comment on above: Performed By: #### U MICRO, ERUR #### [facility] [address] [place] [address] Dr. Etienne Fitch IG # 0.06 10e3/ul Critically high 0.00-0.03 [facility] Comment on above: Performed By: #### U MICRO, ERUR #### [facility] [address] [place] [address] Dr. Etienne Fitch IG % 0.4 % Normal 0.0-0.5 [facility] Comment on above: Performed By: #### U MICRO, ERUR #### [facility] [address] [place] [address] Dr. Etienne Fitch LYMPH # 0.8 103/ul Critically low 1.2-3.8 [facility] Comment on above: Performed By: #### U MICRO, ERUR #### [facility] [address] [place] [address] Dr. Etienne Fitch Lymphocytes/100 WBC (Bld) 5.0 % Critically low 20.5-60.0 [facility] Comment on above: Performed By: #### U MICRO, ERUR #### [facility] [address] [place] [address] Dr. Etienne Fitch MANUAL DIFF REQ NO Normal [facility] Comment on above: Performed By: #### U MICRO, ERUR #### [facility] [address] [place] [address] Dr. Etienne Fitch MCH (RBC) [Entitic mass] 30.9 pg Normal 25.9-34.0 [facility] Comment on above: Performed By: #### U MICRO, ERUR #### [facility] [address] [place] [address] Dr. Etienne Fitch MCHC (RBC) [Mass/Vol] 34.3 g/dL Normal 29.9-35.2 [facility] Comment on above: Performed By: #### U MICRO, ERUR #### [facility] [address] [place] [address] Dr. Etienne Fitch MCV (RBC) [Entitic vol] 90.1 fL Normal 80.0-94.0 [facility] Comment on above: Performed By: #### U MICRO, ERUR #### [facility] [address] [place] [address] Dr. Etienne Fitch MONO # 0.8 103/ul Normal 0.3-0.8 [facility] Comment on above: Performed By: #### U MICRO, ERUR #### [facility] [address] [place] [address] Dr. Etienne Fitch Monocytes/100 WBC (Bld) 5.3 % Normal 1.7-12.0 [facility] Comment on above: Performed By: #### U MICRO, ERUR #### [facility] [address] [place] [address] Dr. Etienne Fitch NEUT # 13.9 103/ul Critically high 1.4-6.5 [facility] Comment on above: Performed By: #### U MICRO, ERUR #### [facility] [address] [place] [address] Dr. Etienne Fitch Neutrophils/100 WBC (Bld) 88.7 % Critically high 43.0-75.0 [facility] Comment on above: Performed By: #### U MICRO, ERUR #### [facility] [address] [place] [address] Dr. Etienne Fitch Platelet mean volume (Bld) [Entitic vol] 10.9 fL Normal 9.5-13.5 [facility] Comment on above: Performed By: #### U MICRO, ERUR #### [facility] [address] [place] [address] Dr. Etienne Fitch PLT 424 103/ul Normal 150-450 [facility] Comment on above: Performed By: #### U MICRO, ERUR #### [facility] [address] [place] [address] Dr. Etienne Fitch RBC 5.37 106/ul Normal 4.70-6.10 [facility] Comment on above: Performed By: #### U MICRO, ERUR #### [facility] [address] [place] [address] Dr. Etienne Fitch WBC 15.7 103/ul Critically high 4.0-11.0 [facility] Comment on above: Performed By: #### U MICRO, ERUR #### [facility] [address] [place], [place] [id number] Dr. Etienne Fitch DRUG SCREEN RAPID (URINE)on 06-15-2022 AMP Negative Normal NEGATIVE [facility] Comment on above: Performed By: #### D RUGRPD #### [facility] [address] [place] [address] Dr. Etienne Fitch BAR Negative Normal NEGATIVE [facility] Comment on above: Performed By: #### D RUGRPD #### [facility] [address] [place] [address] Dr. Etienne Fitch BUP Negative Normal NEGATIVE [facility] Comment on above: Performed By: #### D RUGRPD #### [facility] [address] [place] [address] Dr. Etienne Fitch BZO Negative Normal NEGATIVE [facility] Comment on above: Performed By: #### D RUGRPD #### [facility] [address] [place] [address] Dr. Etienne Fitch MILTON Negative Normal NEGATIVE [facility] Comment on above: Performed By: #### D RUGRPD #### [facility] [address] [place] [address] Dr. Etienne Fitch CUT-OFFS SEE BELOW Normal [facility] Comment on above: Result Comment: AMP (Amphetamine): 500ng/mL, BAR (Barbituates): 200 ng/mL, BZO (Benzodiazepines): 150 ng/mL, BUP (Buprenorphine): 10 ng/mL, MILTON (Cocaine): 150 ng/mL, mAMP (Methamphetamine): 500 ng/mL, MTD (Methadone): 200 ng/mL, OPI (Opiates): 100 ng/mL, OXY (Oxycodone): 100 ng/mL, PCP (Phencyclidine): 25 ng/mL, PPX (Propoxyphene): 300 ng/mL, THC (Cannabinoids): 50 ng/mL, TCA (Trycyclic Antidepressants): 300 ng/mL Performed By: #### D RUGRPD #### [facility] [address] [place] [address] Dr. Etienne Fitch DRUG CUT HEADER DRUG CLASS TEST SYST EM CUT-OFF CONCENTRATIONS ARE FOLLOWS: Normal [facility] Comment on above: Performed By: #### D RUGRPD #### [facility] [address] [address] [address] Etienne Fitch mAMP Negative Normal NEGATIVE [facility] Comment on above: Performed By: #### D RUGRPD #### [facility] [address] [address] [address] Etienne Fitch MTD Negative Normal NEGATIVE [facility] Comment on above: Performed By: #### D RUGRPD #### [facility] [address] [address] [address] Etienne Fitch OPI Negative Normal NEGATIVE [facility] Comment on above: Performed By: #### D RUGRPD #### [facility] [address] [place] [address] Dr. Etienne Fitch OXY Negative Normal NEGATIVE [facility] Comment on above: Performed By: #### D RUGRPD #### [facility] [address] [place] [address] Dr. Etienne Fitch PCP Negative Normal NEGATIVE [facility] Comment on above: Performed By: #### D RUGRPD #### [facility] [address] [place] [address] Dr. Etienne Fitch PPX Negative Normal NEGATIVE [facility] Comment on above: Performed By: #### D RUGRPD #### [facility] [address] [place] [address] Dr. Etienne Fitch TCA Negative Normal NEGATIVE [facility] Comment on above: Performed By: #### D RUGRPD #### [facility] [address] [address] [address] Etienne Fitch THC Positive Abnormal NEGATIVE [facility] Comment on above: Performed By: #### D RUGRPD #### [facility] [address] [place] [address] Dr. Etienne Fitch ER URINE PROFILEon 2 Bilirubin Ql (U) MODERATE Abnormal NEGATIVE [facility] Comment on above: Performed By: #### U MICRO, ERUR #### [facility] [address] [place] [address] Dr. Etienne Fitch Clarity (U) CLEAR Normal CLEAR [facility] Comment on above: Performed By: #### U MICRO, ERUR #### [facility] [address] [address] [address] Etienne Fitch Color (U) DK. ORANGE Abnormal YELLOW [facility] Comment on above: Performed By: #### U MICRO, ERUR #### [facility] [address] [place] [address] Dr. Etienne Fitch ERUAHD A micrscopic examina tion will be performed if indicated. Normal [facility] Comment on above: Performed By: #### U MICRO, ERUR #### [facility] [address] [place] [address] Dr. Etienne Fitch Glucose Ql (U) Negative Normal NEGATIVE [facility] Comment on above: Performed By: #### U MICRO, ERUR #### [facility] [address] [place] [address] Dr. Etienne Fitch Hemoglobin Ql (U) Negative Normal NEGATIVE [facility] Comment on above: Performed By: #### U MICRO, ERUR #### [facility] [address] [place] [address] Dr. Etienne Fitch Ketones Ql (U) 40 mg/dl Abnormal NEGATIVE [facility] Comment on above: Performed By: #### U MICRO, ERUR #### [facility] [address] [place] [address] Dr. Etienne Fitch LEUKOCYTES Negative Normal NEGATIVE [facility] Comment on above: Performed By: #### U MICRO, ERUR #### [facility] [address] [address] [address] Etienne Fitch Nitrite Ql (U) Negative Normal NEGATIVE [facility] Comment on above: Performed By: #### U MICRO, ERUR #### [facility] [address] [place] [address] Dr. Etienne Fitch pH (U) 6.0 [pH] Normal 5-9 [facility] Comment on above: Performed By: #### U MICRO, ERUR #### [facility] [address] [place] [address] Dr. Etienne Fitch Protein (U) [Mass/Vol] 100 mg/dL Abnormal NEGATIVE/ TRACE [facility] Comment on above: Performed By: #### U MICRO, ERUR #### [facility] [address] [place] [address] Dr. Etienne Fitch SPEC GRAVITY >=1.030 Abnormal 1.005-<=1.02 5 [facility] Comment on above: Performed By: #### U MICRO, ERUR #### [facility] [address] [place] [address] Dr. Etienne Fitch UR MICRO IND INDICATED Normal [facility] Comment on above: Performed By: #### U MICRO, ERUR #### [facility] [address] [place] [address] Dr. Etienne Fitch Urobilinogen Qn (U) 1.0 {Nesha'U}/dL Normal 0.2 - 1.0 [facility] Comment on above: Performed By: #### U MICRO, ERUR #### [facility] [address] [place] [address] Dr. Etienne Fitch ETHANOL (BLD ALC)on 06-15-20 ALC NOTE NOTE: 80 mg/dl is th e legal limit for a blood alcohol level Normal [facility] Comment on above: Performed By: #### E TH #### [facility] [address] [place] [address] Dr. Etienne Fitch Ethanol [Mass/Vol] mg/dL Normal [facility] Comment on above: Performed By: #### E TH #### [facility] [address] [place] [address] Dr. Etienne Fitch LIPASEon 06-15-2022 Lipase [Catalytic activity/Vol] 32.0 U/L Critically low 73.0-393.0 [facility] Comment on above: Performed By: #### L ACT #### [facility] [address] [place] [address] Dr. Etienne Fitch PROF 14(COMP METB)on Albumin [Mass/Vol] 5.4 g/dL Critically high 3.4-5.0 [facility] Comment on above: Performed By: #### L ACT #### [facility] [address] [place] [address] Dr. Etienne Ficth Albumin/Globulin [Mass ratio] 1.4 {ratio} Normal [facility] Comment on above: Performed By: #### L ACT #### [facility] [address] [place] [address] Dr. Etienne Fitch ALP [Catalytic activity/Vol] 93 U/L Normal 46-116 [facility] Comment on above: Performed By: #### L ACT #### [facility] [address] [place] [address] Dr. Etienne Fitch ALT [Catalytic activity/Vol] 19 U/L Normal 16-63 [facility] Comment on above: Performed By: #### L ACT #### [facility] [address] [place] [address] Dr. Etienne Fitch Anion gap [Moles/Vol] 18.2 mmol/L Normal [facility] Comment on above: Performed By: #### L ACT #### [facility] [address] [place] [address] Dr. Etienne Fitch AST [Catalytic activity/Vol] 23 U/L Normal 15-37 [facility] Comment on above: Performed By: #### L ACT #### [facility] [address] [place] [address] Dr. Etienne Fitch Bilirubin [Mass/Vol] 3.0 mg/dL Critically high 0.2-1.0 [facility] Comment on above: Performed By: #### L ACT #### [facility] [address] [place] [address] Dr. Etienne Fitch Calcium [Mass/Vol] 11.2 mg/dL Critically high 8.5-10.1 [facility] Comment on above: Performed By: #### L ACT #### [facility] [address] [place] [address] Dr. Etienne Fitch Chloride [Moles/Vol] 102 mmol/L Normal 98-107 [facility] Comment on above: Performed By: #### L ACT #### [facility] [address] [place] [address] Dr. Etienne Fitch CO2 [Moles/Vol] 27.0 mmol/L Normal 21.0-32.0 [facility] Comment on above: Performed By: #### L ACT #### [facility] [address] [address] [address] Etienne Fitch Creatinine [Mass/Vol] 1.49 mg/dL Critically high 0.70-1.30 [facility] Comment on above: Performed By: #### L ACT #### [facility] [address] [address] [address] Etienne Fitch EGFR-AF SAUDI ARABIAN >60 Normal >=60 [facility] Comment on above: Performed By: #### L ACT #### [facility] [address] [address] [address] Etienne Fitch EGFR-NON AF SAUDI ARABIAN 51 mL/min/1.73m2 Critically low >=60 [facility] Comment on above: Performed By: #### L ACT #### [facility] [address] [address] [address] Etienne Fitch Globulin (S) [Mass/Vol] 4.0 g/dL Normal [facility] Comment on above: Performed By: #### L ACT #### [facility] [address] [address] [address] Etienne Fitch Glucose [Mass/Vol] 183 mg/dL Critically high 74-106 [facility] Comment on above: Performed By: #### L ACT #### [facility] [address] [address] [address] Etienne Fitch Potassium [Moles/Vol] 4.2 mmol/L Normal 3.5-5.1 [facility] Comment on above: Performed By: #### L ACT #### [facility] [address] [address] [address] Etienne Fitch Protein [Mass/Vol] 9.4 g/dL Critically high 6.4-8.2 [facility] Comment on above: Performed By: #### L ACT #### [facility] [address] [address] [address] Etienne Fitch Sodium [Moles/Vol] 143 mmol/L Normal 136-145 [facility] Comment on above: Performed By: #### L ACT #### [facility] [address] [address] [address] Etienne Fitch Urea nitrogen [Mass/Vol] 19.0 mg/dL Critically high 7.0-18.0 [facility] Comment on above: Performed By: #### L ACT #### [facility] [address] [address] [address] Etienne Fitch Urea nitrogen/Creatini ne [Mass ratio] 12.8 mg/mg Normal [facility] Comment on above: Performed By: #### L ACT #### [facility] [address] [address] [address] Etienne Fitch URINE MICROSCOPIC ONLYon BACTERIA TRACE Abnormal NONE SEEN [facility] Comment on above: Performed By: #### U MICRO, ERUR #### [facility] [address] [place] [address] Dr. Etienne Fitch Bacteria identified Cx Nom (U) NOT INDICATED Normal [facility] Comment on above: Performed By: #### U MICRO, ERUR #### [facility] [address] [place] [address] Dr. Etienne Fitch CAST SEEN Abnormal NONE SEEN [facility] Comment on above: Performed By: #### U MICRO, ERUR #### [facility] [address] [place] [address] Dr. Etienne Fitch Crystals LM Nom (Urine sed) NONE SEEN Normal NONE SEEN [facility] Comment on above: Performed By: #### U MICRO, ERUR #### [facility] [address] [place] [address] Dr. Etienne Fitch Epithelial cells LM Ql (Urine sed) NONE SEEN Normal NONE SEEN /RARE [facility] Comment on above: Performed By: #### U MICRO, ERUR #### [facility] [address] [place] [address] Dr. Etienne Fitch HYALINE CAST MODERATE Normal [facility] Comment on above: Performed By: #### U MICRO, ERUR #### [facility] [address] [place] [address] Dr. Etienne Fitch MUCOUS MODERATE Abnormal NONE SEEN [facility] Comment on above: Performed By: #### U MICRO, ERUR #### [facility] [address] [address] [address] Etienne Fitch RBC 0-2 Normal 0-2 [facility] Comment on above: Performed By: #### U MICRO, ERUR #### [facility] [address] [address] [address] Etienne Fitch WBC NONE SEEN Normal NONE SEEN [facility] Comment on above: Performed By: #### U MICRO, ERUR #### [facility] [address] [address] [address] Etienne Fitch XR ABD FLAT UP_PA [...] by: SHILPI THAPA Date: 2022-06-15 09:44 Normal [facility] ED Note-Physicianon 04-03-20 ED Note-Physician [id number]#[id number]:127 Normal [facility] CBC W MANUAL DIFFon 04-02-20 ATYPICAL LYMPH # Normal [facility] Comment on above: Performed By: #### U MICRO, ERUR #### [facility] Laboratory [address] [place] [address] Dr. Etienne Fitch ATYPICAL LYMPH % Normal [facility] Comment on above: Performed By: #### U MICRO, ERUR #### [facility] Laboratory [address] [address] [address] Etienne Fitch BAND # Normal 0.0-0.3 [facility] Comment on above: Performed By: #### U MICRO, ERUR #### [facility] Laboratory [address] [place] [address] Dr. Etienne Fitch BAND % Normal 0-5 [facility] Comment on above: Performed By: #### U MICRO, ERUR #### [facility] Laboratory [address] [place] [address] Dr. Etienne Fitch BASOM # 0.00 103/ul Normal 0.00-0.10 [facility] Comment on above: Performed By: #### U MICRO, ERUR #### [facility] Laboratory [address] [place] [address] Dr. Etienne Fitch BASOM % 0.0 % Critically low 0.2-2.0 [facility] Comment on above: Performed By: #### U MICRO, ERUR #### [facility] Laboratory [address] [place] [address] Dr. Etienne Fitch BLAST # Normal [facility] Comment on above: Performed By: #### U MICRO, ERUR #### [facility] Laboratory [address] [place] [address] Dr. Etienne Fitch BLAST % Normal [facility] Comment on above: Performed By: #### U MICRO, ERUR #### [facility] Laboratory [address] [place] [address] Dr. Etienne Fitch CORRECTED WBC Normal 4.0-11.0 [facility] Comment on above: Performed By: #### U MICRO, ERUR #### [facility] Laboratory [address] [place] [address] Dr. Etienne Fitch EOS # 0.00 103/ul Normal 0.00-0.70 [facility] Comment on above: Performed By: #### U MICRO, ERUR #### [facility] Laboratory [address] [place] [address] Dr. Etienne Fitch EOS% 0.0 % Critically low 0.9-7.0 [facility] Comment on above: Performed By: #### U MICRO, ERUR #### [facility] [address] [place] [address] Dr. Etienne Fitch HCT 43.5 % Normal 42.0-54.0 [facility] Comment on above: Performed By: #### U MICRO, ERUR #### [facility] [address] [place] [address] Dr. Etienne Fitch HGB 14.3 g/dl Normal 14.0-18.0 [facility] Comment on above: Result Comment: gett ing fluids Performed By: #### U MICRO, ERUR #### [facility] [address] [place] [address] Dr. Etienne Fitch LYMPHM # 3.30 103/ul Normal 1.20-3.80 [facility] Comment on above: Performed By: #### U MICRO, ERUR #### [facility] [address] [place] [address] Dr. Etienne Fitch LYMPHM% 20.0 % Critically low 20.5-60.0 [facility] Comment on above: Performed By: #### U MICRO, ERUR #### [facility] [address] [place] [address] Dr. Etienne Fitch MCH 30.9 pg Normal 25.9-34.0 [facility] Comment on above: Performed By: #### U MICRO, ERUR #### [facility] [address] [place] [address] Dr. Etienne Fitch MCHC 32.9 g/dl Normal 29.9-35.2 [facility] Comment on above: Performed By: #### U MICRO, ERUR #### [facility] [address] [place] [address] Dr. Etienne Fitch MCV 94.0 fL Normal 80.0-94.0 [facility] Comment on above: Performed By: #### U MICRO, ERUR #### [facility] [address] [place] [address] Dr. Etienne Fitch METAMYELOCYTE # Normal [facility] Comment on above: Performed By: #### U MICRO, ERUR #### [facility] [address] [place] [address] Dr. Etienne Fitch METAMYELOCYTE % Normal [facility] Comment on above: Performed By: #### U MICRO, ERUR #### [facility] [address] [address] [address] Etienne Fitch MONOM# 2.31 103/ul Critically high 0.30-0.80 [facility] Comment on above: Performed By: #### U MICRO, ERUR #### [facility] Laboratory [address] [place] [address] Dr. Etienne Fitch MONOM% 14.0 % Critically high 1.7-12.0 [facility] Comment on above: Performed By: #### U MICRO, ERUR #### [facility] [address] [place] [address] Dr. Etienne Fitch MPV 10.5 fL Normal 9.5-13.5 [facility] Comment on above: Performed By: #### U MICRO, ERUR #### [facility] [address] [place] [address] Dr. Etienne Fitch MYELOCYTE # Normal [facility] Comment on above: Performed By: #### U MICRO, ERUR #### [facility] [address] [place] [address] Dr. Etienne Fitch MYELOCYTE % Normal [facility] Comment on above: Performed By: #### U MICRO, ERUR #### [facility] [address] [place] [address] Dr. Etienne Fitch NRBC Normal [facility] Comment on above: Performed By: #### U MICRO, ERUR #### [facility] [address] [place] [address] Dr. Etienne Fitch PLT 285 103/ul Normal 150-450 [facility] Comment on above: Performed By: #### U MICRO, ERUR #### [facility] [address] [place] [address] Dr. Etienne Fitch RBC 4.63 106/ul Critically low 4.70-6.10 [facility] Comment on above: Performed By: #### U MICRO, ERUR #### [facility] [address] [place] [address] Dr. Etienne Fitch RDW 12.8 % Normal 11.0-15.0 [facility] Comment on above: Performed By: #### U MICRO, ERUR #### [facility] [address] [address] [address] Etienne Fitch SEG # 10.89 103/ul Critically high 1.40-6.50 [facility] Comment on above: Performed By: #### U MICRO, ERUR #### [facility] [address] [address] [address] Etienne Fitch SEG % 66.0 % Normal 43.0-75.0 [facility] Comment on above: Performed By: #### U MICRO, ERUR #### [facility] [address] [place] [address] Dr. Etienne Fitch TOXIC GRANULATION 1+ Normal [facility] Comment on above: Performed By: #### U MICRO, ERUR #### [facility] [address] [place] [address] Dr. Etienne Fitch WBC 16.5 103/ul Critically high 4.0-11.0 [facility] Comment on above: Performed By: #### U MICRO, ERUR #### [facility] [address] [place] [address] Dr. Etienne Fitch PROF 14(COMP METB)on 022 Albumin [Mass/Vol] 3.2 g/dL Critically low 3.4-5.0 [facility] Comment on above: Performed By: #### L ACT #### [facility] [address] [place] [address] Dr. Etienne Fitch Albumin/Globulin [Mass ratio] 1.1 {ratio} Normal [facility] Comment on above: Performed By: #### L ACT #### [facility] [address] [place] [address] Dr. Etienne Fitch ALP [Catalytic activity/Vol] 55 U/L Normal 46-116 [facility] Comment on above: Performed By: #### L ACT #### [facility] [address] [place] [address] Dr. Etienne Fitch ALT [Catalytic activity/Vol] 28 U/L Normal 16-63 [facility] Comment on above: Performed By: #### L ACT #### [facility] [address] [address] [address] Etienne Fitch Anion gap [Moles/Vol] 12.6 mmol/L Normal [facility] Comment on above: Performed By: #### L ACT #### [facility] [address] [address] [address] Etienne Fitch AST [Catalytic activity/Vol] 20 U/L Normal 15-37 [facility] Comment on above: Performed By: #### L ACT #### [facility] [address] [address] [address] Etienne Fitch Bilirubin [Mass/Vol] 2.8 mg/dL Critically high 0.2-1.0 [facility] Comment on above: Performed By: #### L ACT #### [facility] [address] [place] [address] Dr. Etienne Fitch Calcium [Mass/Vol] 7.8 mg/dL Critically low 8.5-10.1 [facility] Comment on above: Performed By: #### L ACT #### [facility] [address] [address] [address] Etienne Fitch Chloride [Moles/Vol] 104 mmol/L Normal 98-107 [facility] Comment on above: Performed By: #### L ACT #### [facility] [address] [address] [address] Etienne Fitch CO2 [Moles/Vol] 28.0 mmol/L Normal 21.0-32.0 [facility] Comment on above: Performed By: #### L ACT #### [facility] [address] [address] [address] Etienne Fitch Creatinine [Mass/Vol] 0.97 mg/dL Normal 0.70-1.30 [facility] Comment on above: Performed By: #### L ACT #### [facility] [address] [place] [address] Dr. Etienne Fitch EGFR-AF SAUDI ARABIAN >60 Normal >=60 [facility] Comment on above: Performed By: #### L ACT #### [facility] [address] [address] [address] Etienne Fitch EGFR-NON AF SAUDI ARABIAN >60 Normal >=60 [facility] Comment on above: Performed By: #### L ACT #### [facility] [address] [address] [address] Etienne Fitch Globulin (S) [Mass/Vol] 2.9 g/dL Normal [facility] Comment on above: Performed By: #### L ACT #### [facility] [address] [address] [address] Etienne Ficth Glucose [Mass/Vol] 108 mg/dL Critically high 74-106 [facility] Comment on above: Performed By: #### L ACT #### [facility] [address] [place] [address] Dr. Etienne Fitch Potassium [Moles/Vol] 3.6 mmol/L Normal 3.5-5.1 [facility] Comment on above: Performed By: #### L ACT #### [facility] [address] [place] [address] Dr. Etienne Fitch Protein [Mass/Vol] 6.1 g/dL Critically low 6.4-8.2 [facility] Comment on above: Performed By: #### L ACT #### [facility] [address] [place] [address] Dr. Etienne Fitch Sodium [Moles/Vol] 141 mmol/L Normal 136-145 [facility] Comment on above: Performed By: #### L ACT #### [facility] [address] [address] [address] Etienne Fitch Urea nitrogen [Mass/Vol] 33.0 mg/dL Critically high 7.0-18.0 [facility] Comment on above: Performed By: #### L ACT #### [facility] [address] [place] [address] Dr. Etienne Fitch Urea nitrogen/Creatini ne [Mass ratio] 34.0 mg/mg Normal [facility] Comment on above: Performed By: #### L ACT #### [facility] [address] [place] [address] Dr. Etienne Fitch SINGLE QUAD RT UPPER [...] ALEXA HOWARD Date: 2022-04-02 09:08 Normal [facility] CBC AUTO DIFFon 04-01-2022 BASO # 0.1 103/ul Normal 0.0-0.1 [facility] Comment on above: Performed By: #### U MICRO, ERUR #### [facility] [address] [address] [address] Etienne Fitch Basophils/100 WBC (Bld) 0.4 % Normal 0.2-2.0 [facility] Comment on above: Performed By: #### U MICRO, ERUR #### [facility] [address] [address] [address] Etienne Fitch EO # 0.0 103/ul Normal 0.0-0.7 [facility] Comment on above: Performed By: #### U MICRO, ERUR #### [facility] [address] [address] [address] Etienne Fitch Eosinophils/100 WBC (Bld) 0.0 % Critically low 0.9-7.0 [facility] Comment on above: Performed By: #### U MICRO, ERUR #### [facility] [address] [address] [address] Etienne Fitch Erythrocyte distribution width (RBC) [Ratio] 12.8 % Normal 11.0-15.0 [facility] Comment on above: Performed By: #### U MICRO, ERUR #### [facility] [address] [place] [address] Dr. Etienne Fitch Hematocrit (Bld) [Volume fraction] 55.1 % Critically high 42.0-54.0 [facility] Comment on above: Performed By: #### U MICRO, ERUR #### [facility] [address] [place] [address] Dr. Etienne Fitch Hemoglobin (Bld) [Mass/Vol] 18.3 g/dL Critically high 14.0-18.0 [facility] Comment on above: Performed By: #### U MICRO, ERUR #### [facility] [address] [place] [address] Dr. Etienne Fitch IG # 0.11 10e3/ul Critically high 0.00-0.03 [facility] Comment on above: Performed By: #### U MICRO, ERUR #### [facility] [address] [place] [address] Dr. Etienne Fitch IG % 0.5 % Normal 0.0-0.5 [facility] Comment on above: Performed By: #### U MICRO, ERUR #### [facility] [address] [place] [address] Dr. Etienne Fitch LYMPH # 1.2 103/ul Normal 1.2-3.8 [facility] Comment on above: Performed By: #### U MICRO, ERUR #### [facility] [address] [place] [address] Dr. Etienne Fitch Lymphocytes/100 WBC (Bld) 5.7 % Critically low 20.5-60.0 [facility] Comment on above: Performed By: #### U MICRO, ERUR #### [facility] [address] [place] [address] Dr. Etienne Fitch MANUAL DIFF REQ NO Normal [facility] Comment on above: Performed By: #### U MICRO, ERUR #### [facility] [address] [place] [address] Dr. Etienne Fitch MCH (RBC) [Entitic mass] 30.7 pg Normal 25.9-34.0 [facility] Comment on above: Performed By: #### U MICRO, ERUR #### [facility] [address] [place] [address] Dr. Etienne Fitch MCHC (RBC) [Mass/Vol] 33.2 g/dL Normal 29.9-35.2 [facility] Comment on above: Performed By: #### U MICRO, ERUR #### [facility] [address] [place] [address] Dr. Etienne Fitch MCV (RBC) [Entitic vol] 92.3 fL Normal 80.0-94.0 [facility] Comment on above: Performed By: #### U MICRO, ERUR #### [facility] [address] [place] [address] Dr. Etienne Fitch MONO # 1.6 103/ul Critically high 0.3-0.8 [facility] Comment on above: Performed By: #### U MICRO, ERUR #### [facility] [address] [place] [address] Dr. Etienne Fitch Monocytes/100 WBC (Bld) 7.4 % Normal 1.7-12.0 [facility] Comment on above: Performed By: #### U MICRO, ERUR #### [facility] [address] [place] [address] Dr. Etienne Fitch NEUT # 18.6 103/ul Critically high 1.4-6.5 [facility] Comment on above: Performed By: #### U MICRO, ERUR #### [facility] [address] [place] [address] Dr. Etienne Fitch Neutrophils/100 WBC (Bld) 86.0 % Critically high 43.0-75.0 [facility] Comment on above: Performed By: #### U MICRO, ERUR #### [facility] [address] [place] [address] Dr. Etienne Fitch Platelet mean volume (Bld) [Entitic vol] 10.3 fL Normal 9.5-13.5 [facility] Comment on above: Performed By: #### U MICRO, ERUR #### [facility] [address] [place], [place] [address] Dr. Etienne Fitch PLT 447 103/ul Normal 150-450 [facility] Comment on above: Performed By: #### U MICRO, ERUR #### [facility] [address] [place], [place] [address] Dr. Etienne Fitch RBC 5.97 106/ul Normal 4.70-6.10 [facility] Comment on above: Performed By: #### U MICRO, ERUR #### [facility] [address] [place], [place] [address] Dr. Etienne Fitch WBC 21.6 103/ul Critically high 4.0-11.0 [facility] Comment on above: Performed By: #### U MICRO, ERUR #### [facility] [address] [place], [place] [address] ABD/PELV W CONon [...] ALEXA HOWARD Date: 2022-04-01 15:11 Normal [facility] Covid-19 PCR (CVDTBH)on SARS-CoV-2 (COVID-19) RNA KWABENA+probe Ql (Unsp spec) Not detected Normal NOT DETECTED [facility] Comment on above: Result Comment: [...] for this test is supported by the Manager Contact of Health and Human Service's declaration that [...] used). Performed By: #### C VDTBH #### [facility] Laboratory [address] [place] [address] Dr. Etienne Fitch ER URINE PROFILEon 2 Bilirubin Ql (U) MODERATE Abnormal NEGATIVE [facility] Comment on above: Performed By: #### U MICRO, ERUR #### [facility] [address] [place] [address] Dr. Etienne Fitch Clarity (U) CLEAR Normal CLEAR [facility] Comment on above: Performed By: #### U MICRO, ERUR #### [facility] [address] [place] [address] Dr. Etienne Fitch Color (U) DK. ORANGE Abnormal YELLOW [facility] Comment on above: Performed By: #### U MICRO, ERUR #### [facility] [address] [place] [address] Dr. Etienne Fitch ERUAHD A micrscopic examina tion will be performed if indicated. Normal [facility] Comment on above: Performed By: #### U MICRO, ERUR #### [facility] [address] [address] [address] Etienne Fitch Glucose Ql (U) Negative Normal NEGATIVE [facility] Comment on above: Performed By: #### U MICRO, ERUR #### [facility] [address] [address] [address] Etienne Fitch Hemoglobin Ql (U) Negative Normal NEGATIVE [facility] Comment on above: Performed By: #### U MICRO, ERUR #### [facility] [address] [address] [address] Etienne Fitch Ketones Ql (U) Negative Normal NEGATIVE [facility] Comment on above: Performed By: #### U MICRO, ERUR #### [facility] [address] [address] [address] Etienne Fitch LEUKOCYTES Negative Normal NEGATIVE [facility] Comment on above: Performed By: #### U MICRO, ERUR #### [facility] [address] [address] [address] Etienne Fitch Nitrite Ql (U) Negative Normal NEGATIVE [facility] Comment on above: Performed By: #### U MICRO, ERUR #### [facility] [address] [address] [address] Etienne Fitch pH (U) 5.5 [pH] Normal 5-9 [facility] Comment on above: Performed By: #### U MICRO, ERUR #### [facility] [address] [address] [address] Etienne Fitch Protein (U) [Mass/Vol] 100 mg/dL Abnormal NEGATIVE/ TRACE [facility] Comment on above: Performed By: #### U MICRO, ERUR #### [facility] [address] [address] [address] Etienne Fitch SPEC GRAVITY >=1.030 Abnormal 1.005-<=1.02 5 [facility] Comment on above: Performed By: #### U MICRO, ERUR #### [facility] [address] [address] [address] Etienne Fitch UR MICRO IND INDICATED Normal [facility] Comment on above: Performed By: #### U MICRO, ERUR #### [facility] [address] [place] [address] Dr. Etienne Fitch Urobilinogen Qn (U) 1.0 {Nesha'U}/dL Normal 0.2 - 1.0 [facility] Comment on above: Performed By: #### U MICRO, ERUR #### [facility] [address] [place] [address] Dr. Etienne Fitch LACTATE/LACTIC ACIDon 2021 Lactate [Moles/Vol] 1.8 mmol/L Normal 0.4-1.9 [facility] Comment on above: Performed By: #### U MICRO, ERUR #### [facility] [address] [place] [address] Dr. Etienne Fitch Lactate [Moles/Vol] 2.3 mmol/L Critically high 0.4-1.9 [facility] Comment on above: Result Comment: repe ated Performed By: #### L ACT #### [facility] [address] [place] [address] Dr. Etienne Fitch LIPASEon 04-01-2022 Lipase [Catalytic activity/Vol] 32.0 U/L Critically low 73.0-393.0 [facility] Comment on above: Performed By: #### U MICRO, ERUR #### [facility] [address] [place] [address] Dr. Etienne Fitch PROF 14(COMP METB)on 022 Albumin [Mass/Vol] 4.9 g/dL Normal 3.4-5.0 [facility] Comment on above: Performed By: #### U MICRO, ERUR #### [facility] [address] [place] [address] Dr. Etienne Fitch Albumin/Globulin [Mass ratio] 1.2 {ratio} Normal [facility] Comment on above: Performed By: #### U MICRO, ERUR #### [facility] [address] [place] [address] Dr. Etienne Fitch ALP [Catalytic activity/Vol] 82 U/L Normal 46-116 [facility] Comment on above: Performed By: #### U MICRO, ERUR #### [facility] [address] [address] [address] Etienne Fitch ALT [Catalytic activity/Vol] 37 U/L Normal 16-63 [facility] Comment on above: Performed By: #### U MICRO, ERUR #### [facility] [address] [address] [address] Etienne Fitch Anion gap [Moles/Vol] 13.2 mmol/L Normal [facility] Comment on above: Performed By: #### U MICRO, ERUR #### [facility] [address] [address] [address] Etienne Fitch AST [Catalytic activity/Vol] 31 U/L Normal 15-37 [facility] Comment on above: Performed By: #### U MICRO, ERUR #### [facility] [address] [place] [address] Dr. Etienne Ficth Bilirubin [Mass/Vol] 4.8 mg/dL Critically high 0.2-1.0 [facility] Comment on above: Performed By: #### U MICRO, ERUR #### [facility] [address] [place] [address] Dr. Etienne Fitch Calcium [Mass/Vol] 9.8 mg/dL Normal 8.5-10.1 [facility] Comment on above: Performed By: #### U MICRO, ERUR #### [facility] [address] [address] [address] Etienne Ftich Chloride [Moles/Vol] 98 mmol/L Normal 98-107 [facility] Comment on above: Performed By: #### U MICRO, ERUR #### [facility] [address] [address] [address] Etienne Fitch CO2 [Moles/Vol] 31.2 mmol/L Normal 21.0-32.0 [facility] Comment on above: Performed By: #### U MICRO, ERUR #### [facility] [facility] [address] [address] [address] Etienne Fitch Creatinine [Mass/Vol] 1.63 mg/dL Critically high 0.70-1.30 [facility] Comment on above: Performed By: #### U MICRO, ERUR #### [facility] [address] [address] [address] Etienne Fitch EGFR-AF SAUDI ARABIAN 56 mL/min/1.73m2 Critically low >=60 [facility] Comment on above: Performed By: #### U MICRO, ERUR #### [facility] [address] [address] [address] Etienne Fitch EGFR-NON AF SAUDI ARABIAN 46 mL/min/1.73m2 Critically low >=60 [facility] Comment on above: Performed By: #### U MICRO, ERUR #### [facility] [address] [address] [address] Etienne Fitch Globulin (S) [Mass/Vol] 4.1 g/dL Normal [facility] Comment on above: Performed By: #### U MICRO, ERUR #### [facility] [address] [address] [address] Etienne Fitch Glucose [Mass/Vol] 142 mg/dL Critically high 74-106 [facility] Comment on above: Performed By: #### U MICRO, ERUR #### [facility] [address] [address] [address] Etienne Fitch Potassium [Moles/Vol] 3.4 mmol/L Critically low 3.5-5.1 [facility] Comment on above: Performed By: #### U MICRO, ERUR #### [facility] [address] [address] [address] Etienne Fitch Protein [Mass/Vol] 9.0 g/dL Critically high 6.4-8.2 [facility] Comment on above: Performed By: #### U MICRO, ERUR #### [facility] [address] [address] [address] Etienne Fitch Sodium [Moles/Vol] 139 mmol/L Normal 136-145 [facility] Comment on above: Performed By: #### U MICRO, ERUR #### [facility] [address] [address] [address] Etienne Fitch Urea nitrogen [Mass/Vol] 40.0 mg/dL Critically high 7.0-18.0 [facility] Comment on above: Performed By: #### U MICRO, ERUR #### [facility] [address] [place] [address] Dr. Etienne Fitch Urea nitrogen/Creatini ne [Mass ratio] 24.5 mg/mg Normal [facility] Comment on above: Performed By: #### U MICRO, ERUR #### [facility] [address] [place] [address] Dr. Etienne Fitch TROPONIN, HIGH SENSITIVITYon 04-01-2022 HSTROP 44.4 pg/mL Normal 4.0-76.1 [facility] Comment on above: Result Comment: CUT- OFF POINTS HAVE BEEN ESTABLISHED BASED ON THE FOURTH UNIVERSAL DEFINITIONS OF MYOCARDIAL INFARCTION. THE UPPER REFERENCE LIMIT (URL) OF TROPONIN, DEFINED THE 99TH PERCENTILE OF cTnI DISTRIBUTION IN A REFERENCE POPULATION, HAS BEEN CONFIRMED THE DECISION THRESHOLD FOR MO DIAGNOSIS. Performed By: #### U MICRO, ERUR #### [facility] [address] [place] [address] Dr. Etienne Fitch URINE MICROSCOPIC ONLYon BACTERIA NONE SEEN Normal NONE SEEN [facility] Comment on above: Performed By: #### U MICRO, ERUR #### [facility] [address] [place] [address] Dr. Etienne Fitch Bacteria identified Cx Nom (U) NOT INDICATED Normal [facility] Comment on above: Performed By: #### U MICRO, ERUR #### [facility] [address] [place] [address] Dr. Etienne Fitch CAST SEEN Abnormal NONE SEEN [facility] Comment on above: Performed By: #### U MICRO, ERUR #### [facility] [address] [place] [address] Dr. Etienne Fitch Crystals LM Nom (Urine sed) NONE SEEN Normal NONE SEEN [facility] Comment on above: Performed By: #### U MICRO, ERUR #### [facility] [address] [place] [address] Dr. Etienne Fitch Epithelial cells LM Ql (Urine sed) NONE SEEN Normal NONE SEEN /RARE [facility] Comment on above: Performed By: #### U MICRO, ERUR #### [facility] [address] [address] [address] Etienne Fitch MUCOUS NONE SEEN Normal NONE SEEN [facility] Comment on above: Performed By: #### U MICRO, ERUR #### [facility] [address] [address] [address] Etienne Fitch RBC NONE SEEN Abnormal 0-2 [facility] Comment on above: Performed By: #### U MICRO, ERUR #### [facility] [address] [address] [address] Etienne Fitch WBC 0-2 Abnormal NONE SEEN [facility] Comment on above: Performed By: #### U MICRO, ERUR #### [facility] [address] [address] [address] Etienne Fitch Vital Signs Date Time Vital Sign Value Performing Clinician Thieni amy 07-02-2022 13:15-0400 Blood Pressure Location [employer] [facility] [place] 07-02-2022 13:15-0400 Diastolic blood pressure 74 mm[Hg] [employer] [facility] [place] 07-02-2022 13:15-0400 Heart rate 72 /min [employer] [facility] [place] 07-02-2022 13:15-0400 Respiratory rate 16 /min [employer] [facility] [place] 07-02-2022 13:15-0400 Systolic blood pressure 120 mm[Hg] [employer] [facility] [place] Encounters Encounter Date Encounter Type Care Provider Facility Start: 02-07-2023 Encounter for genera l adult medical examination without abnormal findings [facility] Start: 01-29-2023 End: 01-30-2023 [facility] Facility[facility] Start: 01-29-2023 End: 01-30-2023 Encounter for general adult medical examination without abnormal findings [facility] Facility:H1 Start: 12-18-2022 End: 12-19-2022 ambulatory MAKENZIE NAVARRETEON Facility:[facility]1 Start: 12-12-2022 End: 12-12-2022 ambulatory EVELYN GLASER . Facility: Start: 08-07-2022 ambulatory Anupam POOLE Facility :[facility] Start: 08-07-2022 End: 08-07-2022 Patient encounter procedure Anupam POOLE [facility] Start: 07-24-2022 Encounter for preprocedural laboratory examination DR ANUPAM POOLE . [facility] Start: 07-24-2022 End: 07-25-2022 ambulatory Anupam POOLE Facility:[id number] Start: 07-20-2022 End: 07-21-[address] ANUPAM POOLE . Facility: Start: 07-20-2022 End: 07-21-2022 Encounter for preprocedural laboratory examination DR ANUPAM POOLE . Facility:[facility]1 Start: 07-17-2022 End: 07-18-[address] ANUPAM POOLE . Facility: Start: 07-02-2022 End: 07-03-2022 ambulatory Anupam POOLE Facility:[facility] Start: 07-02-2022 End: 07-02-2022 Patient encounter procedure Anupam POOLE [facility] [place] Start: 06-15-2022 End: 06-15-2022 ambulatory EVELYN GLASER . Facility: Start: 04-23-2022 ambulatory Anupam POOLE Facility :[facility] Start: 04-02-2022 ambulatory Anupam POOLE Facility :[facility] Start: 04-01-2022 End: 04-02-[address] ALEXA HOWARD Facility: Procedures Date Procedure Procedure Detail Performing Clinician Start: 07-24-2022 Colonoscopy Anupam ELLIOTT Start: 07-24-2022 Esophagogastroduodenoscopy Anupam POOLE None (qualifier value) Elias POOLE Payers Date Payer Category Payer Unknown [id number] 2.16.8 [id number] 1980 Unknown [id number] 2.16.8 [id number] 1978 Unknown [id number] 2.16.8 [id number] 1978 Unknown [id number] 2.16.8 [id number] 1978 Unknown [id number] 2.16.84 [id number] 1978 Unknown [id number] 2.16.84 [id number] 1978 Unknown [id number] 2.16.84 [id number] 1978 Unknown [id number] 2.16.84 [id number] 1978 Unknown [id number] 2.16.84 [id number] 1978 Unknown [id number] 2.16.84 [id number] 1978 Unknown [id number] 2.16.84 [id number] 1978 Unknown [id number] 2.16.84 [id number] 1959 Unknown [id number] Social History Date Type Detail Facility Start: 07-02-2022 Tobacco smoking status Ex-smoker (fi nding) [facility] [place] Tobacco smoking status Smokeless tobacco user within last 30 days [facility] Sex Assigned At Male [facility] Functional Status Date Assessment Result Facility 07-02-2022 Functional Status N/A [facility] [place] Clinical Note 07-24-2022 Note Date & Type [...] in good condition. CC: Family physician [facility] Clinical Note 07-02-2022 Note Date & Type Note Facility 07-02-2022 Note Chief Complaint consultation for ABD pain HPI Staff 41 year old male presents on consultation from [facility] ED for abdominal pain. Presented to [...] Allergies No K (more content not included)... [facility] Comment on above: Result Comment: Elec tronically Signed By: SAMIR MOCK, Anupam Thompson\Date and Time Signed: 07/02/22 21:30 EDT History and physical note 04-03-2022 Note Date & Type Note Facility 04-03-2022 Note [id number] #[id number] [facility] Evaluation + Plan note Note Date & Type Note Facility Evaluation + Plan note No data available for this section [facility] [place] [facility] Discharge instructions Note Date & Type Note Facility Hospital Discharge instructions No data available for this section [facility] [place] Progress note Note Date & Type Note Facility Progress note No data available for this section [facility] [place] Summary Purpose Family History No Family History Records FoundNo Family History Records Found Advance Directives No Advanced Directives Records FoundNo Advanced Directives Records Found Additional Source Comments Care Team (unrecognized sect ion and content) Personnel Name: RANJANA TRAYLOR MD Address: [address] [place], [place] [address] Personnel Name: RANJANA TRAYLOR MD Address: Address: [address] [place] [address] (unrecognized sect ion and content) No Status Records FoundNo Status Records Found INFORMATION SOURCE (unrecogn ized section and content) DATE CREATED AUTHOR 08/07/2022 Kiran Germain [facility] DATE CREATED AUTHOR AUTHOR'S JULIAN LOPEZ [...] BE BASED ON THE PRIMARY CLINICAL RECORDS. [employer] [facility]. provides no warranty or guarantee of the accuracy or completeness of information in this document.
[2024-02-06] MEDS: 0.9 % SODIUM CHLORIDE 1,000 ML 100 ML IV ×2 (05:17→14:24)
[2024-02-06] MEDS: AMLODIPINE BESYLATE 5 MG TABLET 10 MG PO (08:31)
--- NOTE | 2024-02-06 11:15 | CM.NOTE ---
Rounds made with Dr. Strauss. CT results reviewed with Jitendra by Dr. Strauss. Dr. Strauss to order repeat CXR tomorrow. Can advance diet if tolerated. No plan for discharge today.
--- NOTE | 2024-02-06 11:19 | PM.HP ---
HPI H&P: HPI History of Present Illness Chief complaint: Nausea/Vomiting Narrative: 43 y/o male to ER with nausea and vomiting. History of THC use and prior episodes of cyclic vomiting. Developed nausea and vomiting for several days. [place] feverish and developed sore throat. Reports exposed to strep. To ER and afebrile. WBC elevated and CT abdomen negative. Positive for strep. Chest x-ray with cavitary mass and CT showed cavitary pneumonia along with severe emphysematous changes. Admitted for treatment. Started zithromax and rocephin. Feels better overnight. No further nausea or emesis. Denies any SOB or cough. Vapes THC and no history of lung disease. Opioid HPI Opioid Management Most Recent Opioid Data: Last Pain Scale 0 07/21/23 19:57 Last Pain Assessment 02/06/24 11:16 Last ORT Total Score 02/06/24 05:00 Last ORT Risk Category High Risk 02/06/24 05:00 Ur Phencyclidine Scrn Negative (NEGATIVE) 02/05/24 23:36 Review of Systems ROS Constitutional Denies: fever, chills or fatigue Ears, nose, mouth, and throat Reports: throat pain Cardiovascular Denies: chest pain, palpitations or edema Respiratory Denies: shortness of breath, cough or wheezing Gastrointestinal Reports: abdominal pain, nausea and vomiting; Denies: diarrhea Genitourinary Denies: painful urination [facility] Medical History (Updated 02/06/24 @ 09:12 by Wale Strauss MD) Elevated liver enzymes ?R74.8 - Abnormal levels of other serum enzymes (ICD-10) Nausea and vomiting ?R11.2 - Nausea with vomiting, unspecified (ICD-10) Abdominal pain ?R10.9 - Unspecified abdominal pain (ICD-10) Nausea and vomiting ?R11.2 - Nausea with vomiting, unspecified (ICD-10) Abdominal pain ?R10.9 - Unspecified abdominal pain (ICD-10) Pneumonia ?J18.9 - Pneumonia, unspecified organism (ICD-10) Benign essential HTN ?I10 - Essential (primary) hypertension (ICD-10) Anxiety ?F41.9 - Anxiety disorder, unspecified (ICD-10) Bipolar 1 disorder ?F31.9 - Bipolar disorder, unspecified (ICD-10) Family History (Updated 02/06/24 @ 04:58 by Kelsie Fitch RN) Father Family history of CHF (congestive heart failure) Family history of hypertension Family history of myocardial infarction Family history of stroke Grandfather Family history of cancer Family history of myocardial infarction Family history of stroke Uncle Family history of cancer Grandmother Family history of diabetes mellitus Social History (Updated 02/06/24 @ 04:59 by Kelsie Fitch RN) Within the past year, how often did you have a drink containing alcohol: never Within the past year, how often did you have six or more drinks on one occasion: never Score interpretation: A score less than 4 is consistent with normal alcohol consumption. Smoking status: Current every day smoker Do you use any of these nicotine containing products: vaping products Non-prescribed substance use: cannabis (any form) Highest level of school completed/degree received: high school graduate Are you now , , , , never or living with a partner: In a typical week, how many times do you talk on the telephone with family, friends, or neighbors: 3 or more times per week How often do you get together with friends or relatives: 3 or more times per week How often do you attend baptist or baptist services: never Little interest or pleasure in doing things: not at all Feeling down, depressed, or hopeless: several days Feel stressed/tense/nervous/anxious/difficulty sleeping: to some extent Do you think of yourself as: straight/heterosexual Gender Identity: male Meds Home Medications and Allergies Home Medications ?Medication ?Instructions ?Recorded ?Confirmed ?Type olanzapine 2.5 mg tablet 2.5 mg PO BEDTIME 07/16/23 02/06/24 History fluoxetine 60 mg tablet 60 mg PO QPM 11/04/23 02/06/24 History ondansetron 4 mg disintegrating 4 mg PO Q6H PRN nausea and 11/04/23 02/06/24 Rx tablet vomiting #12 tabs Allergies Allergy/AdvReac Type Severity Reaction Status Date / Time No Known Drug Allergies Allergy Verified 07/17/23 06:23 Exam Constitutional Vital Signs, click to edit/add: Last Vital Signs Temp 98.2 F 02/06/24 08:33 Pulse 82 02/06/24 08:33 Resp 16 02/06/24 08:33 BP 124/79 02/06/24 08:33 Pulse Ox 95 02/06/24 08:33 O2 Del Method Room Air 02/06/24 08:33 Documenting provider has reviewed patient's vital signs: yes Common normals: no apparent distress, oriented x3 and alert HENMT Common normals: normocephalic Eye Common normals: PERRL and EOMs intact bilaterally Respiratory Common normals: normal respiratory effort and clear to auscultation bilaterally Cardio Common normals: regular rate, regular rhythm, no gallops, no murmurs and no rub GI Common normals: Normal to inspection, nondistended, normoactive bowel sounds present and non-tender Extremity Common normals: no pedal edema Results Labs Labs: Short CBC 02/05/24 Range/Units 22:10 WBC 36.5 H* (4.0-11.0) 10^3/uL Hgb 15.1 (14.0-18.0) g/dL Hct 46.5 (42.0-54.0) % Plt Count 547 H (150-450) 10^3/uL BMP 02/05/24 22:10 Sodium 139 Potassium 3.8 Chloride 98 Carbon Dioxide 26.5 BUN 64.0 H Creatinine 2.85 H Glucose 147 H Calcium 10.1 Liver Function 02/05/24 Range/Units 22:10 Total Bilirubin 2.7 H (0.2-1.0) mg/dL AST 13 L (15-37) U/L ALT 17 (16-63) U/L Alkaline Phosphatase 133 H (46-116) U/L Albumin 3.3 L (3.4-5.0) g/dL Urine 02/05/24 Range/Units 23:36 Urine Color Dk. orange (YELLOW) Urine Clarity Clear (CLEAR) Urine pH 5.0 (5.0-9.0) Ur Specific [place] >=1.030 A (1.005-1.025) Urine Protein 100 A (NEG/TRACE) mg/dL Urine Glucose (UA) Negative (NEGATIVE) mg/dL Assessment and Plan Assessment and Plan (1) Cavitary pneumonia: (2) Acute streptococcal pharyngitis: (3) Acute kidney injury: (4) Cannabis hyperemesis syndrome concurrent with and due to cannabis abuse: (5) Emphysema of lung: (6) Marijuana abuse, continuous: (7) Hyperbilirubinemia: Plan Presented with nausea and vomiting and found cavitary pneumonia. Continue antibiotics. Presented with MACKENZIE evidenced by >50% reduction in function and on IV fluids. GI symptoms improved and advance diet as tolerated. Repeat x-ray in am. Monitor labs and vitals.
[2024-02-07] VITALS (8 sets, daily range): BP systolic 110–123; BP diastolic 68–73; PULSE 56–86; TEMP 36.3–37.1; O2SAT 98–99
[2024-02-07] MEDS: 0.9 % SODIUM CHLORIDE 1,000 ML 100 ML IV ×2 (00:22→08:20)
--- NOTE | 2024-02-07 05:00 | XR_ITS ---
The [address] [address] Patient Name: GERALDINE RICCI MRN: [id number] date: 1980 Sex: M Assigned Patient Location: [place] Current Patient Location: [place] Accession/Order Number: [id number] Exam Date: 02/07/2024 06:02 Report Date: 02/07/2024 14:27 At the request of: RANJANA TRAYLOR Procedure: XR chest 1V EXAMINATION: Portable AP upright chest: 02/07/2024. CLINICAL HISTORY: Pneumonia . COMPARISON: PA and lateral chest: 02/06/2024, unenhanced CT scan of the chest: 02/06/2024. FINDINGS: There are cavitary appearing lesions, in the right upper lobe, with associated dense consolidation lateral to it. One of these lesions seems to be in the upper chest on the left as well as one at the level of the left hilum. These seem to demonstrate air-fluid levels on the CT examination as well as dense consolidation. Most likely these are infectious in origin. These remain unchanged. Nonetheless malignancy would be difficult to exclude. The remaining lungs appear clear except for emphysematous changes with calcified granuloma in the right lower lobe. The heart size remains enlarged. The aorta has normal contour. The trachea is midline. The visualized osseous structures are normal. No definite ureterolithiasis seen. XR/XR chest 1V IMPRESSION: 1. No interval change in cavitary appearing lesions in the left upper lobe, left perihilar distribution with infiltrative changes lateral to it. These most likely are infectious, however, underlying malignancy cannot be excluded. Therefore following appropriate course of treatment a follow-up is advised for the complete clearance. 2. Stable cardiomegaly. 3. No new findings otherwise. Electronically authenticated by: JANESSA ESCOBAR Date: 02/07/2024 14:27
[2024-02-07 05:44] LABS: Basophils Absolute Auto 0.1 10^3/uL (0.0-0.1); Basophils Percent Auto 0.3 % (0.2-2.0); Eosinophils Absolute Auto 0.2 10^3/uL (0.0-0.7); Hematocrit 36.3 % (42.0-54.0); Hemoglobin 11.2 g/dL (14.0-18.0); Immature Granulocytes Abs Auto 0.17 10^3/uL (0.00-0.03); Immature Granulocytes Pct Auto 0.9 % (0.0-0.5); Lymphocytes Absolute Auto 1.3 10^3/uL (1.2-3.8); Lymphocytes Percent Auto 6.9 % (20.5-60.0); Mean Corpuscular HGB Conc 30.9 g/dL (29.9-35.2); Mean Corpuscular Hemoglobin 29.3 pg (25.9-34.0); Mean Platelet Volume 10.7 fL (9.5-13.5); Monocytes Absolute Auto 1.5 10^3/uL (0.3-0.8); Monocytes Percent Auto 7.8 % (1.7-12.0); Neutrophils Absolute Auto 15.8 10^3/uL (1.4-6.5); Neutrophils Percent Auto 83.1 % (43.0-75.0); Platelet Count 384 10^3/uL (150-450); Red Blood Count 3.82 10^6/uL (4.70-6.10); Red Cell Distribution Width 13.3 % (11.0-15.0); White Blood Count 18.9 10^3/uL (4.0-11.0)
[2024-02-07 06:02] LABS: Alanine Aminotransferase 70 U/L (16-63); Albumin Globulin Ratio 0.5; Albumin Level 2.1 g/dL (3.4-5.0); Alkaline Phosphatase 193 U/L (46-116); Anion Gap 12.1; Aspartate Amino Transferase 74 U/L (15-37); Bilirubin Total 1.2 mg/dL (0.2-1.0); Calcium 8.6 mg/dL (8.5-10.1); Carbon Dioxide 27.5 mmol/L (21.0-32.0); Chloride 105 mmol/L (98-107); Estimated GFR (African America >60 (>=60); Estimated GFR (Non-African Ame >60 (>=60); Globulin 4.3 g/dL; Glucose 105 mg/dL (74-106); Potassium 3.6 mmol/L (3.5-5.1); Sodium 141 mmol/L (136-145); Total Protein 6.4 g/dL (6.4-8.2)
[2024-02-07] MEDS: AMLODIPINE BESYLATE 5 MG TABLET 10 MG PO (08:20)
[2024-02-07] MEDS: CEFTRIAXONE 1,000 MG in 0.9 % SODIUM CHLORIDE 50 ML 100 MG IV (08:21)
[2024-02-07] MEDS: AZITHROMYCIN 500 MG in 0.9 % SODIUM CHLORIDE 250 ML 250 MG IV (09:08)
--- NOTE | 2024-02-07 10:47 | P.DS_ITS ---
DS: Providers Provider Date of admission: 02/06/24 04:45 Primary care physician: Non-Staff Physician, Consults: 02/07/24 10:27 Consult to Pulmonology Routine Consulting Provider: Madhu Melendez Reason for consultation: Cavitary Pneumonia Attending physician on discharge: Shaikh Keyona Discharging clinician: Shaikh Keyona Anticipated date of discharge: 02/07/24 DS: Diagnosis Discharge Diagnosis (1) Sepsis: Assessment and plan: Meets criteria for severe sepsis. SIRS criteria met by patient (WBC> 36K, HR 97) with acute kidney injury (presented with cr of 2.8) with normal baseline serum creatinine. Source of infection is Pneumonia. Patient tested positive for strep pneumonia on throat swab. Blood cultures are pending at this time. He was treated with IV rocephin/azithromax and clinically improved on it. He has stable hemodynamics and no respiratory symptoms at this time. Qualifiers: Acute renal failure type: unspecified Sepsis acute organ dysfunction status: with acute organ dysfunction Sepsis type: Pneumococcus Severe sepsis acute organ dysfunction type: acute renal failure Severe sepsis shock status: without septic shock Qualified Code(s): A40.3 - Sepsis due to Streptococcus pneumoniae; R65.20 - Severe sepsis without septic shock; N17.9 - Acute kidney failure, unspecified (2) Cavitary pneumonia: Assessment and plan: Multifocal pneumonia with left upper lob cavitations. No respiratory symptoms currently. On RA and denies cough, SOB, wheezing. Denies travel outside of [place], recent abx use, hx of tuberculosis exposure. Patient has improved clinically on rocephin/azithromax. Discussed his CT scan with Pulmonary medicine - since patient has clinically improved, we will discharge him on oral Augmentin. He will need follow up CT chest as outpatient in 2 weeks to ensure cavitary lesions are improving/resolving. (3) Acute streptococcal pharyngitis: Assessment and plan: Will d/c on oral Augmentin (4) Acute kidney injury: Assessment and plan: Presented with Cr of 2.8. Normal baseline serum creatinine. Back to baseline with IVF. Likely due to pre renal azotemia/sepsis. (5) Cannabis hyperemesis syndrome concurrent with and due to cannabis abuse: Assessment and plan: Counseled on marijuana abuse and recommended to stop smoking. (6) Emphysema of lung: Assessment and plan: No prior formal diagnosis. But patient is a smoker. Will benefit from outpatient PFTs. Defer to PCP Recommended smoking cessation/vaping cessation Qualifiers: Emphysema type: centrilobular Qualified Code(s): J43.2 - Centrilobular emphysema (7) Marijuana abuse, continuous: Assessment and plan: Encouraged to stop smoking marijuana. (8) Hyperbilirubinemia: Assessment and plan: Chronically elevated. May have underlying undiagnosed Gilbert. Defer to PCP (9) Transaminitis: Assessment and plan: Mild elevated in AST/ALT. He has chronically elevated ALPO4. No sig liver/GB pathology on CT abd/pelvis. Recommend outpatient LFTs in one week (10) Nausea and vomiting: Assessment and plan: Could possibly be due to CHS and/or Pneumonia/strep throat Resolved. Tolerating PO diet. No sig pathology on CT abd. Qualifiers: Vomiting type: unspecified Qualified Code(s): R11.2 - Nausea with vomiting, unspecified (11) Bipolar 1 disorder: Assessment and plan: He is quite anxious and feels that he needs to be discharged and sent home for the sake of his mental health. It is quite possibly be because he did not get his Prozac and Olanzapine yesterday. Resumed patients medications. Denies SI/HI. Has poorly controlled anxiety and he thinks he will feel better once he is at home. (12) Anxiety: Assessment and plan: Poorly controlled, likely because of current illness, exacerbated also because he did not receive his prozac. No SI/HI. Defer to PCP (13) Benign essential HTN: Assessment and plan: Not currently on medications. Defer to PCP DS: Summary Hospital Course Hospital Course: Patient presented to ED with malaise, fatigue, nausea, vomiting and upper respiratory symptoms including cough, sinus congestion, headache and fever/chills. His main concern was to get a work note from ED but his work up revealed that he met criteria for sepsis sec to Pneumonia with MACKENZIE. He was admitted to inpatient and started on IVF, IV abx. He tested positive for step pneumonia on throat swab and is likely the underlying infections cause for his pneumonia and sepsis. Patient clinically improved with treatment. Nausea and vomiting resolved and patient started to tolerate PO diet. CT abd/pelvis did not show any sig intra abdominal pathology. However, CT chest revealed emphysematous changes, and cavitary pneumonia. On day of discharge, he had no active complaints except for anxiety which he felt was worsened because of current illness, not being home and also because he did not receive his Prozac. He discussed his CT scan finding with Pulm for their recommendation and since patient has improved clinically and has no resp complaints whatsoever, it was felt that he is medically stable to finish his course of treatment at home. Patient was discharged on oral Augmentin for 14 days. He will need follow up CT chest in 2 weeks. Patient was educated on worrisome signs and symptoms and instructed to come to ED if he develops those. He was also instructed to follow up with PCP in 1 week Status at Discharge Functional status at discharge: independent ambulation Overall status at discharge: patient is back to baseline Time Spent with Patient Time attestation: Total time spent providing and/or coordinating discharge services: Time spent: greater than 30 minutes Exam Constitutional Vital Signs, click to edit/add: Last Vital Signs Temp 98.7 F 02/07/24 08:11 Pulse 86 02/07/24 09:57 Resp 16 02/07/24 08:11 BP 110/68 02/07/24 08:11 Pulse Ox 99 02/07/24 08:11 O2 Del Method Room Air 02/07/24 08:11 Common normals: oriented x3 General appearance: cooperative, comfortable and anxious Respiratory Common normals: normal respiratory effort and no use of accessory muscles Effort & inspection: able to speak in complete sentences Auscultation: clear to auscultation bilaterally Other: No rhonchi or wheezing. Cardio Common normals: no JVD, regular rate, S1 normal heart sound and S2 normal heart sound GI Common normals: Normal to inspection, nondistended, normoactive bowel sounds present, soft to palpation, non-tender and no hepatosplenomegaly Neuro Common normals: oriented x3, CN's II-XII intact bilaterally, moves all extremities and no focal motor deficits Psych Common normals: mental status grossly normal, thought process normal, denies homicidal ideation and denies suicidal ideation Mood and affect: anxious DS: Data Data Completed and Pending Labs on day of discharge: Labs from last 24 hours 02/07/24 04:30 WBC 18.9 H RBC 3.82 L Hgb 11.2 L Hct 36.3 L MCV 95.0 H MCH 29.3 MCHC 30.9 RDW 13.3 Plt Count 384 MPV 10.7 Neut % (Auto) 83.1 H Lymph % (Auto) 6.9 L Swisher % (Auto) 7.8 Eos % (Auto) 1.0 Baso % (Auto) 0.3 Neut # (Auto) 15.8 H Lymph # (Auto) 1.3 Swisher # (Auto) 1.5 H Eos # (Auto) 0.2 Baso # (Auto) 0.1 Abs Immat Gran (auto) 0.17 H Imm/Tot Granulo (auto) 0.9 H Sodium 141 Potassium 3.6 Chloride 105 Carbon Dioxide 27.5 Anion Gap 12.1 BUN 26.0 H Creatinine 0.93 Est GFR ( Amer) >60 Est GFR (Non-Af Amer) >60 BUN/Creatinine Ratio 28.0 Glucose 105 Calcium 8.6 Total Bilirubin 1.2 H AST 74 H ALT 70 H Alkaline Phosphatase 193 H Total Protein 6.4 Albumin 2.1 L Globulin 4.3 Albumin/Globulin Ratio 0.5 Discharge Plan Discharge Disposition: Home, Self-Care Condition: Fair Discharge Medications: New amoxicillin-pot clavulanate 875-125 mg tablet 1 tab PO BID 14 Days Qty: 28 0RF Continued olanzapine 2.5 mg tablet 2.5 mg PO BEDTIME fluoxetine 60 mg tablet 60 mg PO QPM ondansetron 4 mg tablet,disintegrating 4 mg PO Q6H PRN (Reason: nausea and vomiting) Qty: 12 0RF Activity: increase activity as tolerated Diet: advance to your usual diet Print Language: Estonian Patient Instructions: Amoxicillin/Clavulanate Potassium (By mouth), Strep Throat (DC), Pneumonia (DC) Forms: Portal Instructions Follow Up Appointments: Follow up with PCP in one week. [place] [id number] [facility] [phone] Discharge Date/Time: 02/07/24 11:25
--- NOTE | 2024-02-09 13:37 | CM.DCFOLLOWU ---
Person spoke with: Jitendra How are you feeling? Much better How is your pain? No pain Did you understand your discharge instructions? Yes Do you have any questions about your discharge instructions? No Were you given any prescriptions at discharge? Yes Were you able to get your prescriptions filled? Yes Do you understand how to take your medications as ordered? Yes Do you have any questions about your follow up appointment and do you plan to keep your follow up appointment? No questions, I just scheduled appt today. Is there anything else that you would like to discuss? No Questions/Comments/Concerns/Other:
== END 2024-02-07 11:25 | disposition home or self-care (01) | DRG 720 ==
LOC: ER 02-06 04:02 → MS 02-06 04:59
PROVIDERS: Nurse Practitioner Acute Care; Admitting Provider Family Medicine; Emergency Provider Emergency Medicine; Visit Provider Internal Medicine
DX: A40.3 Sepsis due to Streptococcus pneumoniae (principal); J13 Pneumonia due to Streptococcus pneumoniae; N17.9 Acute kidney failure, unspecified; R65.20 Severe sepsis without septic shock; J43.2 Centrilobular emphysema; J02.0 Streptococcal pharyngitis; E80.6 Other disorders of bilirubin metabolism; R74.8 Abnormal levels of other serum enzymes; F12.10 Cannabis abuse, uncomplicated; R74.01 Elevation of levels of liver transaminase levels; I10 Essential (primary) hypertension; F31.9 Bipolar disorder, unspecified; R11.2 Nausea with vomiting, unspecified; F41.9 Anxiety disorder, unspecified; Z20.822 Contact with and (suspected) exposure to COVID-19; Z79.899 Other long term (current) drug therapy
CPT/HCPCS: 0202U; 36415; 71045; 71046; 71250; 74176; 80053; 80307; 81001; 83605; 84484; 85007; 85025; 85027; 87040; 87086; 87880; 93005; 96361; 96365; 96366; 96367; 96375; 99285; J0456

== ENCOUNTER 2024-02-16 20:21 | Emergency (ER) | payer OTHER, SELFPAY ==
[2024-02-16 20:25] VITALS: BP 174/100; PULSE 77; TEMP 36.6; BMI 25.8
--- NOTE | 2024-02-16 20:41 | XR_ITS ---
The [address] [address] Patient Name: GERALDINE RICCI MRN: [id number] date: 1980 Sex: M Assigned Patient Location: ER Current Patient Location: ER Accession/Order Number: [id number] Exam Date: 02/16/2024 21:17 Report Date: 02/16/2024 22:11 At the request of: JULIAN GALLAGHER Procedure: XR acute abdomen series EXAM: XR acute abdomen series HISTORY: Nausea and vomiting COMPARISON: CT chest 02/06/2024 , chest radiograph 02/06/2024 TECHNIQUE: Upright and supine AP views of the chest, abdomen and pelvis. FINDINGS: There are no tubes or implants noted. Cardiac silhouette does not appear enlarged. No pulmonary interstitial edema. Redemonstration of a cavitary lesion seen in the left upper lobe with secondary cavitary component less evident on this study. Again seen is left upper lobe confluent airspace disease. No pneumothorax or pleural effusion. Osseous structures and soft tissues are within normal limits. No definite free intraperitoneal air, portal venous gas or pneumatosis intestinalis. The bowel gas pattern is nonobstructive. The bones and soft tissues are unremarkable. XR/XR acute abdomen series IMPRESSION: Redemonstration of a left upper lobe cavitary lesion as well as left upper lobe confluent airspace disease. Nonobstructive bowel gas pattern. FINDINGS: IMPRESSION: Electronically authenticated by: CHAD SERRANO Date: 02/16/2024 22:11
--- NOTE | 2024-02-16 20:41 | ED.GENADUL1 ---
HPI HPI - General Adult General Chief complaint: Nausea/Vomiting/Diarrhea Stated complaint: vomitting Time Seen by Provider: 02/16/24 20:23 Source: patient Mode of arrival: Wheelchair Limitations: no limitations History of Present Illness HPI narrative: Patient is a 43-year-old male who presents to the emergency department for nausea and vomiting that began today. Patient was seen in this emergency department almost 2 weeks ago for nausea and requested a work note. He had an evaluation that showed a pneumonia infiltrate on his CT scan of the abdomen and pelvis and additional imaging of his chest showed cavitary pneumonia which was later diagnosed as Streptococcus. Patient was admitted for acute kidney injury and treatment of strep and is still currently taking Augmentin for pneumonia. He states he had a return of nausea and vomiting today and feels very anxious and shaky. He is noted to continue to be positive for marijuana on drug screens, he states no one has ever talked to him before about cyclic vomiting possibly being the cause of his nausea and vomiting. He denies any fevers or upper respiratory symptoms. He has no cough or shortness of breath. He has minimal mid abdominal pain. He has no urinary symptoms and is having normal bowel movements. His dropped him off to the emergency department. Related Data Home Medications ?Medication ?Instructions ?Recorded ?Confirmed olanzapine 2.5 mg tablet 2.5 mg PO BEDTIME 07/16/23 02/16/24 fluoxetine 60 mg tablet 60 mg PO QPM 11/04/23 02/16/24 Previous Rx's ?Medication ?Instructions ?Recorded ondansetron 4 mg disintegrating 4 mg PO Q6H PRN nausea and 11/04/23 tablet vomiting #12 tabs amoxicillin 875 mg-potassium 1 tab PO BID 14 days #28 tabs 02/07/24 clavulanate 125 mg tablet Allergies Allergy/AdvReac Type Severity Reaction Status Date / Time No Known Drug Allergies Allergy Verified 02/16/24 20:31 Opioid HPI Opioid Management Most Recent Opioid Data: Last Pain Scale 0 07/21/23 19:57 Last ORT Total Score 02/06/24 05:00 Last ORT Risk Category High Risk 02/06/24 05:00 Ur Phencyclidine Scrn Negative (NEGATIVE) 02/05/24 23:36 Review of Systems ROS Constitutional Denies: fever or chills Ears, nose, mouth, and throat Denies: throat pain or nasal congestion Respiratory Denies: shortness of breath or cough Gastrointestinal Reports: abdominal pain, nausea and vomiting; Denies: diarrhea Musculoskeletal Denies: back pain Integumentary/Breast Denies: rash Psychiatric Reports: anxiety Hematologic/Lymphatic Denies: easy bruising or easy bleeding [facility] Medical History (Updated 02/16/24 @ 20:51 by JJ Villa) Emphysema of lung ?J43.9 - Emphysema, unspecified (ICD-10) Cannabis hyperemesis syndrome concurrent with and due to cannabis abuse ?F12.188 - Cannabis abuse with other cannabis-induced disorder (ICD-10) Marijuana abuse, continuous ?F12.10 - Cannabis abuse, uncomplicated (ICD-10) Hyperbilirubinemia ?E80.6 - Other disorders of bilirubin metabolism (ICD-10) Elevated liver enzymes ?R74.8 - Abnormal levels of other serum enzymes (ICD-10) Abdominal pain ?R10.9 - Unspecified abdominal pain (ICD-10) Nausea and vomiting ?R11.2 - Nausea with vomiting, unspecified (ICD-10) Abdominal pain ?R10.9 - Unspecified abdominal pain (ICD-10) Pneumonia ?J18.9 - Pneumonia, unspecified organism (ICD-10) Benign essential HTN ?I10 - Essential (primary) hypertension (ICD-10) Anxiety ?F41.9 - Anxiety disorder, unspecified (ICD-10) Bipolar 1 disorder ?F31.9 - Bipolar disorder, unspecified (ICD-10) Family History (Updated 02/06/24 @ 04:58 by Kelsie Fitch RN) Father Family history of CHF (congestive heart failure) Family history of hypertension Family history of myocardial infarction Family history of stroke Grandfather Family history of cancer Family history of myocardial infarction Family history of stroke Uncle Family history of cancer Grandmother Family history of diabetes mellitus Social History Within the past year, how often did you have a drink containing alcohol: never Within the past year, how often did you have six or more drinks on one occasion: never Score interpretation: A score less than 4 is consistent with normal alcohol consumption. Smoking status: Current every day smoker Do you use any of these nicotine containing products: vaping products Non-prescribed substance use: cannabis (any form) Highest level of school completed/degree received: high school graduate Are you now , , , , never or living with a partner: In a typical week, how many times do you talk on the telephone with family, friends, or neighbors: 3 or more times per week How often do you get together with friends or relatives: 3 or more times per week How often do you attend yarsani or zoroastrianism services: never Little interest or pleasure in doing things: not at all Feeling down, depressed, or hopeless: several days Feel stressed/tense/nervous/anxious/difficulty sleeping: to some extent Do you think of yourself as: straight/heterosexual Gender Identity: male Exam Narrative Exam Narrative: Gen.: Awake, alert, in no distress, Actively dry heaving into an emesis bag Head: Normocephalic, atraumatic ENT: Moist mucous membranes Respiratory: No respiratory distress, lungs clear bilaterally Cardio: Regular rate and rhythm Gastrointestinal: Abdomen is soft, nondistended and mildly tender to palpation in the mid abdomen with no guarding or rebound Extremities: Moves extremities equally Psych: Normal mood and affect Neuro: No focal neuro deficit Skin: Warm, dry, intact Constitutional Vital Signs, click to edit/add: Last Vital Signs Temp 97.9 F 02/16/24 20:25 Pulse 77 02/16/24 20:25 Resp 20 02/16/24 20:25 BP 174/100 H 02/16/24 20:25 Course Vital Signs Vital signs: Vital Signs Temperature 97.9 F 02/16/24 20:25 Pulse Rate 77 02/16/24 20:25 Respiratory Rate 20 02/16/24 20:25 Blood Pressure 174/100 H 02/16/24 20:25 Temperature 97.9 F 02/16/24 20:25 Pulse Rate 77 02/16/24 20:25 Respiratory Rate 20 02/16/24 20:25 Blood Pressure 174/100 H 02/16/24 20:25 Medical Decision Making [facility] Narrative Medical decision making narrative: 2100: Patient was ordered to have IV placement, IV fluids, Ativan and Zofran as well as lab draw and urine specimen. An ab series is ordered for the patient as he just had CT scanning of his chest and abdomen less than 2 weeks ago. He has no complaints of chest pain or shortness of breath and has no complaints of severe abdominal pain. Case is turned over to attending physician at this time for evaluation and disposition. Vital signs are stable at this time. Medical Records Medical records reviewed: Yes I reviewed the patient's medical records Lab Data Lab results reviewed: Yes I reviewed the patient's lab results Discharge Plan Discharge Chief Complaint: Nausea/Vomiting/Diarrhea Clinical Impression: Nausea & vomiting Patient Disposition: Still a Patient Prescriptions / Home Meds: No Action olanzapine 2.5 mg tablet 2.5 mg PO BEDTIME amoxicillin-pot clavulanate 875-125 mg tablet 1 tab PO BID 14 Days Qty: 28 0RF fluoxetine 60 mg tablet 60 mg PO QPM ondansetron 4 mg tablet,disintegrating 4 mg PO Q6H PRN (Reason: nausea and vomiting) Qty: 12 0RF Print Language: Cuban Referrals: Yonathna Morales NP [Primary Care Provider] - 1 week
[2024-02-16] MEDS: ONDANSETRON PF 4 MG/2 ML VIAL IV (20:57)
[2024-02-16] MEDS: LORAZEPAM 2 MG/ML VIAL 1 MG IV (20:57)
[2024-02-16] MEDS: 0.9 % SODIUM CHLORIDE 1,000 ML 1000 ML IV (20:57)
[2024-02-16 21:15] LABS: Basophils Absolute Auto 0.1 10^3/uL (0.0-0.1); Basophils Percent Auto 0.4 % (0.2-2.0); Eosinophils Percent Auto 0.1 % (0.9-7.0); Hemoglobin 12.2 g/dL (14.0-18.0); Immature Granulocytes Abs Auto 0.21 10^3/uL (0.00-0.03); Immature Granulocytes Pct Auto 0.9 % (0.0-0.5); Lymphocytes Absolute Auto 1.4 10^3/uL (1.2-3.8); Lymphocytes Percent Auto 6.2 % (20.5-60.0); Mean Corpuscular HGB Conc 32.1 g/dL (29.9-35.2); Mean Corpuscular Hemoglobin 29.3 pg (25.9-34.0); Mean Corpuscular Volume 91.3 fL (80.0-94.0); Mean Platelet Volume 9.3 fL (9.5-13.5); Monocytes Absolute Auto 0.9 10^3/uL (0.3-0.8); Monocytes Percent Auto 4.1 % (1.7-12.0); PCO2 VBG 23.9 mmHg (40.0-52.0); Red Blood Count 4.16 10^6/uL (4.70-6.10); Red Cell Distribution Width 12.7 % (11.0-15.0); White Blood Count 22.6 10^3/uL (4.0-11.0); pH VBG 7.602 (7.330-7.430)
[2024-02-16 21:30] VITALS: BP 164/97; PULSE 75; O2SAT 99
[2024-02-16 21:30] LABS: Alanine Aminotransferase 22 U/L (16-63); Albumin Globulin Ratio 0.4; Albumin Level 2.8 g/dL (3.4-5.0); Alkaline Phosphatase 114 U/L (46-116); Anion Gap 18.4; Aspartate Amino Transferase 17 U/L (15-37); BUN Creatinine Ratio 14.7; Bilirubin Total 0.9 mg/dL (0.2-1.0); Carbon Dioxide 23.6 mmol/L (21.0-32.0); Chloride 103 mmol/L (98-107); Estimated GFR (African America >60 (>=60); Estimated GFR (Non-African Ame >60 (>=60); Globulin 6.8 g/dL; Glucose 127 mg/dL (74-106); Magnesium 1.9 mg/dL (1.8-2.4); Sodium 141 mmol/L (136-145); Total Protein 9.6 g/dL (6.4-8.2)
[2024-02-16 21:37] LABS: Lactate/Lactic Acid 2.8 mmol/L (0.4-2.0)
[2024-02-16 21:44] LABS: Platelet Count 1043 10^3/uL (150-450)
[2024-02-16 22:13] LABS: Neutrophils Percent Auto 88.3 % (43.0-75.0)
--- NOTE | 2024-02-16 23:22 | CT_ITS ---
The [address] [address] Patient Name: GERALDINE RICCI MRN: [id number] date: 1980 Sex: M Assigned Patient Location: ER Current Patient Location: Accession/Order Number: [id number] Exam Date: 02/16/2024 23:59 Report Date: 02/17/2024 00:52 At the request of: MARGIE VILLELA Procedure: CT abdomen pelvis w con EXAM: CT abdomen pelvis w con HISTORY: Low abd pain, nausea and vomiting. COMPARISON: CT 11/04/2023. X-rays 02/16/2024. TECHNIQUE: Multiple axial CT images of the abdomen and pelvis were performed with IV contrast. 2D coronal and sagittal reformations were submitted for review. Dose reduction techniques were achieved by using automated exposure control and/or adjustment of mA and/or kV according to patient size and/or use of iterative reconstruction technique. FINDINGS: LUNGS: The lung bases are clear. No pleural effusion. ABDOMINAL AORTA: No aortic aneurysm identified. Mild calcific plaque. LYMPH NODES: No retroperitoneal, mesenteric or pelvic lymphadenopathy. LIVER: Liver contour appears smooth. No focal liver parenchymal mass identified. BILIARY TREE AND GALLBLADDER: No intrahepatic or extrahepatic bile duct dilatation. Gallbladder is fluid distended without calcified gallstones. PANCREAS: Normal in size without masses or ductal dilatation. No peripancreatic inflammatory changes. SPLEEN: Normal in size without focal lesions. ADRENAL GLANDS: Normal bilaterally, without nodules. KIDNEYS/URINARY BLADDER: Kidneys enhance in a symmetric fashion. Low-density cyst at the midpole cortex of the right kidney measures 1.1 cm. Smaller cysts along the left renal cortex measuring up to 1.2 cm at the lower pole. No KUB stones or hydronephrosis identified. The urinary bladder appears unremarkable. GASTROINTESTINAL TRACT: No bowel obstruction is identified. The stomach and duodenum appear unremarkable. Appendix appears normal. PERITONEAL CAVITY AND SURFACES: No free fluid. No free intraperitoneal air. REPRODUCTIVE ORGANS: Prostate gland measures 4.6 cm. ABDOMINAL WALL: Noninflamed fat-containing umbilical hernia. OSSEOUS STRUCTURES: No aggressive appearing osseous lesions. No compression fracture is identified. Mild to moderate endplate spur along the lumbar spine. Chronic healed deformity of the right pubic bone and right inferior pubic ramus. CT/CT abdomen pelvis w con IMPRESSION: 1. No acute findings to explain patient's abdominal symptoms. No bowel obstruction. 2. Normal CT appearance of the appendix. 3. Bilateral renal cysts. Electronically authenticated by: DALIA CAO Date: 02/17/2024 00:52
[2024-02-16 23:35] VITALS: BP 174/100; PULSE 87; O2SAT 100
[2024-02-17 00:19] LABS: Lactate/Lactic Acid 0.9 mmol/L (0.4-2.0)
== END 2024-02-17 01:27 | disposition home or self-care (01) ==
PROVIDERS: Physician Assistant; Emergency Provider Emergency Medicine; PCP Nurse Practitioner Primary Care
DX: R10.9 Unspecified abdominal pain (principal); R11.2 Nausea with vomiting, unspecified; Z79.899 Other long term (current) drug therapy; J43.9 Emphysema, unspecified; F12.10 Cannabis abuse, uncomplicated; I10 Essential (primary) hypertension; F41.9 Anxiety disorder, unspecified; F31.9 Bipolar disorder, unspecified; F17.290 Nicotine dependence, other tobacco product, uncomplicated
CPT/HCPCS: 36415; 74022; 74177; 80053; 80307; 82800; 83605; 83690; 83735; 85025; 96361; 96374; 96375; 99285; Q9967

== ENCOUNTER 2024-05-22 19:34 | Observation (INO) | payer OTHER, SELFPAY ==
[2024-05-22 19:39] VITALS: BP 210/190; PULSE 100; TEMP 37.9; O2SAT 100; BMI 25.8
--- OUTSIDE RECORDS SUMMARY | 2024-05-22 19:42 | XMS_ITS | CCD ---
Author Organization [facility] Care Team Providers Care Regulatory Internship Name Role Phone RANJANA TRAYLOR Primary Care Physician COOPERLAnupam Attending Unavailable NILL, Anupam Bob Attending Unavailable NILL, Anupam Bob Attending Unavailable NILL, Anupam Bob Attending Unavailable NILL, Anupam Bbo Attending Unavailable WEST, DR ALEXA Alcaraz Consulting Unavailable NADERER, DR RANJANA Samaniego Admitting Unavailable NADERER, DR RANJANA Samaniego Attending Unavailable NADERER, DR RANJANA Samaniego Consulting Unavailable PAY ., DR LEMUS Consulting Unavailable NILL ., DR BO Attending Unavailable NADERER, DR RANJANA Samaniego Primary Care Unavailable NILL ., DR BO Consulting Unavailable NILL ., DR BO Admitting Unavailable NITINFANTA Consulting Unavaila ble GEMBUS, ASHIA Consulting Unavailable [...] Medication Allergies] Propensity to adverse reactions (disorder) [facility] Repository Medications Current Medications Medication Drug Class(es) [...] 01-30-2023 HCV AB Non-Reactive Normal Non Reactive [facility] Comment on above: Performed By: #### L ACT #### [facility] [address] [address] [address] Etienne Fitch Interpretation: Comment Normal [facility] Comment on above: Result Comment: Not infected with HCV unless early or acute infection is suspected (which may be delayed in an immunocompromised individual), or other evidence exists to indicate HCV infection. Performed By: #### L ACT #### [facility] [address], [place] [address] Dr. Etienne Fitch HIV 1 AND 2 WITH REFLEXon HIV Screen 4th Generation wRfx Non-Reactive Normal Non Reactive [facility] Comment on above: Result Comment: HIV Negative HIV-1/HIV-2 antibodies and HIV-1 p24 antigen were NOT detected. There is no laboratory evidence of HIV infection. Performed By: #### H IV12 #### [facility] [address] [address] [address] Etienne Fitch LIPID PROFILEon 01-29-2023 CHOL-HDL RATIO NORM SEE BELOW Normal [facility] Comment on above: Result Comment: 3.3 - 4.4 LOW RISK 4.4 - 7.1 AVERAGE RISK 7.1 - 11.0 MODERATE RISK >11.0 HIGH RISK Performed By: #### U MICRO, ERUR #### [facility] [address] [address] [address] Etienne Fitch Cholesterol [Mass/Vol] 196 mg/dL Normal <=200 [facility] Comment on above: Performed By: #### U MICRO, ERUR #### [facility] [address] [address] [address] Etienne Fitch Cholesterol in HDL [Mass/Vol] 78 mg/dL Critically high 40-60 [facility] Comment on above: Performed By: #### U MICRO, ERUR #### [facility] [address] [address] [address] Etienne Fitch Cholesterol in LDL [Mass/Vol] 106.6 mg/dL Normal [facility] Comment on above: Performed By: #### U MICRO, ERUR #### [facility] [address] [address] [address] Etienne Fitch Cholesterol.total /Cholesterol in HDL [Mass ratio] 2.5 {ratio} Normal [facility] Comment on above: Performed By: #### U MICRO, ERUR #### [facility] [address] [address] [address] Etienne Fitch HDL NORMAL > or = 60 mg/dl - LO W CARDIOVASCULAR RISK <40 mg/dl - HIGH CARDIOVASCULAR RISK Normal [facility] Comment on above: Performed By: #### U MICRO, ERUR #### [facility] [address] [address] [address] Etienne Fitch LDL CALC NORMAL SEE BELOW Normal [facility] Comment on above: Result Comment: <100 mg/dl OPTIMAL 100 - 129 mg/dl NEAR OR ABOVE OPTIMAL 130 - 159 mg/dl BORDERLINE HIGH 160 - 189 mg/dl HIGH >190 mg/dl VERY HIGH Performed By: #### U MICRO, ERUR #### [facility] [address] [address] [address] Etienne Fitch Triglyceride [Mass/Vol] 57 mg/dL Normal <=150 [facility] Comment on above: Performed By: #### U MICRO, ERUR #### [facility] [address] [address] [address] Etienne Fitch VLDL CALC 11.4 mg/dL Normal [facility] Comment on above: Performed By: #### U MICRO, ERUR #### [facility] [address] [place] [address] Dr. Etienne Fitch PROF CHEM 8 (BAS METB)on Anion gap [Moles/Vol] 7.4 mmol/L Normal [facility] Comment on above: Performed By: #### U MICRO, ERUR #### [facility] [address] [address] [address] Etienne Fitch Calcium [Mass/Vol] 10.0 mg/dL Normal 8.5-10.1 [facility] Comment on above: Performed By: #### U MICRO, ERUR #### [facility] [address] [address] [address] Etienne Fitch Chloride [Moles/Vol] 101 mmol/L Normal 98-107 [facility] Comment on above: Performed By: #### U MICRO, ERUR #### [facility] [address] [address] [address] Etienne Fitch CO2 [Moles/Vol] 34.0 mmol/L Critically high 21.0-32.0 [facility] Comment on above: Performed By: #### U MICRO, ERUR #### [facility] [address] [place] [address] Dr. Etienne Fitch Creatinine [Mass/Vol] 1.27 mg/dL Normal 0.70-1.30 [facility] Comment on above: Performed By: #### U MICRO, ERUR #### [facility] [address] [address] [address] Etienne Fitch EGFR-AF MONEGASQUE >60 Normal >=60 [facility] Comment on above: Performed By: #### U MICRO, ERUR #### [facility] [address] [address] [address] Etienne Fitch EGFR-NON AF MONEGASQUE >60 Normal >=60 [facility] Comment on above: Performed By: #### U MICRO, ERUR #### [facility] [address] [address] [address] Etienne Fitch Glucose [Mass/Vol] 116 mg/dL Critically high 74-106 [facility] Comment on above: Performed By: #### U MICRO, ERUR #### [facility] [address] [address] [address] Etienne Fitch Potassium [Moles/Vol] 4.4 mmol/L Normal 3.5-5.1 [facility] Comment on above: Performed By: #### U MICRO, ERUR #### [facility] [address] [address] [address] Etienne Fitch Sodium [Moles/Vol] 138 mmol/L Normal 136-145 [facility] Comment on above: Performed By: #### U MICRO, ERUR #### [facility] [address] [address] [address] Etienne Fitch Urea nitrogen [Mass/Vol] 33.0 mg/dL Critically high 7.0-18.0 [facility] Comment on above: Performed By: #### U MICRO, ERUR #### [facility] [address] [address] [address] Etienne Fitch Urea nitrogen/Creatini ne [Mass ratio] 26.0 mg/mg Normal [facility] Comment on above: Performed By: #### U MICRO, ERUR #### [facility] [address] [address] [address] Etienne Fitch CBC AUTO DIFFon 12-12-2022 BASO # 0.0 103/ul Normal 0.0-0.1 [facility] Comment on above: Performed By: #### C BC #### [facility] [address] [address] [address] Etienne Fitch Basophils/100 WBC (Bld) 0.2 % Normal 0.2-2.0 [facility] Comment on above: Performed By: #### C BC #### [facility] [address] [address] [address] Etienne Fitch EO # 0.0 103/ul Normal 0.0-0.7 [facility] Comment on above: Performed By: #### C BC #### [facility] [address] [place] [address] Dr. Etienne Fitch Eosinophils/100 WBC (Bld) 0.1 % Critically low 0.9-7.0 [facility] Comment on above: Performed By: #### C BC #### [facility] [address] [place] [address] Dr. Etienne Fitch Erythrocyte distribution width (RBC) [Ratio] 12.8 % Normal 11.0-15.0 [facility] Comment on above: Performed By: #### C BC #### [facility] [address] [place] [address] Dr. Etienne Fitch Hematocrit (Bld) [Volume fraction] 55.0 % Critically high 42.0-54.0 [facility] Comment on above: Performed By: #### C BC #### [facility] [address] [place] [address] Dr. Etienne Fitch Hemoglobin (Bld) [Mass/Vol] 18.5 g/dL Critically high 14.0-18.0 [facility] Comment on above: Performed By: #### C BC #### [facility] [address] [place] [address] Dr. Etienne Fitch IG # 0.07 10e3/ul Critically high 0.00-0.03 [facility] Comment on above: Performed By: #### C BC #### [facility] [address] [place] [address] Dr. Etienne Fitch IG % 0.5 % Normal 0.0-0.5 [facility] Comment on above: Performed By: #### C BC #### [facility] [address] [place] [address] Dr. Etienne Fitch LYMPH # 1.4 103/ul Normal 1.2-3.8 [facility] Comment on above: Performed By: #### C BC #### [facility] [address] [place] [address] Dr. Etienne Fitch Lymphocytes/100 WBC (Bld) 10.1 % Critically low 20.5-60.0 [facility] Comment on above: Performed By: #### C BC #### [facility] [address] [place] [address] Dr. Etienne Fitch MANUAL DIFF REQ NO Normal [facility] Comment on above: Performed By: #### C BC #### [facility] [address] [place] [address] Dr. Etienne Fitch MCH (RBC) [Entitic mass] 29.6 pg Normal 25.9-34.0 [facility] Comment on above: Performed By: #### C BC #### [facility] [address] [place] [address] Dr. Etienne Fitch MCHC (RBC) [Mass/Vol] 33.6 g/dL Normal 29.9-35.2 [facility] Comment on above: Performed By: #### C BC #### [facility] [address] [place] [address] Dr. Etienne Fitch MCV (RBC) [Entitic vol] 87.9 fL Normal 80.0-94.0 [facility] Comment on above: Performed By: #### C BC #### [facility] [address] [place] [address] Dr. Etienne Fitch MONO # 1.5 103/ul Critically high 0.3-0.8 [facility] Comment on above: Performed By: #### C BC #### [facility] [address] [place] [address] Dr. Etienne Fitch Monocytes/100 WBC (Bld) 11.3 % Normal 1.7-12.0 [facility] Comment on above: Performed By: #### C BC #### [facility] [address] [address] [address] Etienne Fitch NEUT # 10.6 103/ul Critically high 1.4-6.5 [facility] Comment on above: Performed By: #### C BC #### [facility] [address] [place] [address] Dr. Etienne Fitch Neutrophils/100 WBC (Bld) 77.8 % Critically high 43.0-75.0 [facility] Comment on above: Performed By: #### C BC #### [facility] [address] [place] [address] Dr. Etienne Fitch Platelet mean volume (Bld) [Entitic vol] 11.1 fL Normal 9.5-13.5 [facility] Comment on above: Performed By: #### C BC #### [facility] [address] [place] [address] Dr. Etienne Fitch PLT 371 103/ul Normal 150-450 [facility] Comment on above: Performed By: #### C BC #### [facility] [address] [place] [address] Dr. Etienne Fitch RBC 6.26 106/ul Critically high 4.70-6.10 [facility] Comment on above: Performed By: #### C BC #### [facility] [address] [place] [address] Dr. Etienne Fitch WBC 13.6 103/ul Critically high 4.0-11.0 [facility] Comment on above: Performed By: #### C BC #### [facility] [address] [place] [address] Dr. Etienne Fitch Covid-19 PCR ([facility])on 11-27 SARS-CoV-2 (COVID-19) RNA KWABENA+probe Ql (Unsp spec) Not detected Normal NOT DETECTED [facility] Comment on above: Result Comment: [...] for this test is supported by the [place] of Health and Human Service's declaration that [...] Performed By: #### U MICRO, ERUR #### [facility] [address] [place] [address] Dr. Etienne Fitch ER URINE PROFILEon 3 Bilirubin Ql (U) Negative Normal NEGATIVE [facility] Comment on above: Performed By: #### U MICRO, ERUR #### [facility] [address] [place] [address] Dr. Etienne Fitch Clarity (U) CLEAR Normal CLEAR [facility] Comment on above: Performed By: #### U MICRO, ERUR #### [facility] [address] [place] [address] Dr. Etienne Fitch Color (U) LT. YELLOW Normal YELLOW [facility] Comment on above: Performed By: #### U MICRO, ERUR #### [facility] [address] [place] [address] Dr. Etienne Fitch ERUAHD A micrscopic examina tion will be performed if indicated. Normal [facility] Comment on above: Performed By: #### U MICRO, ERUR #### [facility] [address] [place] [address] Dr. Etienne Fitch Glucose Ql (U) Negative Normal NEGATIVE [facility] Comment on above: Performed By: #### U MICRO, ERUR #### [facility] [address] [place] [address] Dr. Etienne Fitch Hemoglobin Ql (U) Negative Normal NEGATIVE [facility] Comment on above: Performed By: #### U MICRO, ERUR #### [facility] [address] [address] [address] Etienne Fitch Ketones Ql (U) Negative Normal NEGATIVE [facility] Comment on above: Performed By: #### U MICRO, ERUR #### [facility] [address] [place] [address] Dr. Etienne Fitch LEUKOCYTES Negative Normal NEGATIVE [facility] Comment on above: Performed By: #### U MICRO, ERUR #### [facility] [address] [address] [address] Etienne Fitch Nitrite Ql (U) Negative Normal NEGATIVE [facility] Comment on above: Performed By: #### U MICRO, ERUR #### [facility] [address] [place] [address] Dr. Etienne Fitch pH (U) 6.0 [pH] Normal 5-9 [facility] Comment on above: Performed By: #### U MICRO, ERUR #### [facility] [address] [place] [address] Dr. Etienne Fitch SPEC GRAVITY 1.015 Normal 1.005-<=1.02 5 [facility] Comment on above: Performed By: #### U MICRO, ERUR #### [facility] [address] [place] [address] Dr. Etienne Fitch UA PROTEIN Negative Normal NEGATIVE/ TRACE [facility] Comment on above: Performed By: #### U MICRO, ERUR #### [facility] [address] [place] [address] Dr. Etienne Fitch UR MICRO IND NOT INDICATED Normal [facility] Comment on above: Performed By: #### U MICRO, ERUR #### [facility] [address] [place] [address] Dr. Etienne Fitch Urobilinogen Qn (U) 0.2 {Nesha'U}/dL Normal 0.2 - 1.0 [facility] Comment on above: Performed By: #### U MICRO, ERUR #### [facility] [address] [place] [address] Dr. Etienne Fitch INFLUENZA A AND B AGon 12-12 INFLUANEGH SEE BELOW Normal [facility] Comment on above: Result Comment: Nega tive for Flu A protein angiten. Infection due to Flu A cannot be ruled out. Flu A angiten in the sample may be below the detection limit of the test. Performed By: #### I NFLUAB #### [facility] [address] [place] [address] Dr. Etienne Fitch [facility] SEE BELOW Normal [facility] Comment on above: Result Comment: Nega tive for Flu B protein antigen. Infection due to Flu B cannot be ruled out. Flu B antigen in the sample may be below the detection limit of the test. Performed By: #### I NFLUAB #### [facility] [address] [place] [address] Dr. Etienne Fitch INFLUENZA A AG Negative Normal NEGATIVE SEE COMMENT [facility] Comment on above: Performed By: #### I NFLUAB #### [facility] [address] [place] [address] Dr. Etienne Fitch INFLUENZA B AG Negative Normal NEGATIVE SEE COMMENT [facility] Comment on above: Performed By: #### I NFLUAB #### [facility] [address] [place] [address] Dr. Etienne Fitch PROF 14(COMP METB)on 023 Albumin [Mass/Vol] 4.4 g/dL Normal 3.4-5.0 [facility] Comment on above: Performed By: #### U MICRO, ERUR #### [facility] [address] [place] [address] Dr. Etienne Fitch Albumin/Globulin [Mass ratio] 1.0 {ratio} Normal [facility] Comment on above: Performed By: #### U MICRO, ERUR #### [facility] [address] [place] [address] Dr. Etienne Fitch ALP [Catalytic activity/Vol] 107 U/L Normal 46-116 [facility] Comment on above: Performed By: #### U MICRO, ERUR #### [facility] [address] [place] [address] Dr. Etienne Fitch ALT [Catalytic activity/Vol] 23 U/L Normal 16-63 [facility] Comment on above: Performed By: #### U MICRO, ERUR #### [facility] [address] [address] [address] Etienne Fitch Anion gap [Moles/Vol] 19.1 mmol/L Normal [facility] Comment on above: Performed By: #### U MICRO, ERUR #### [facility] [address] [address] [address] Etienne Fitch AST [Catalytic activity/Vol] 24 U/L Normal 15-37 [facility] Comment on above: Performed By: #### U MICRO, ERUR #### [facility] [address] [address] [address] Etienne Fitch Bilirubin [Mass/Vol] 2.2 mg/dL Critically high 0.2-1.0 [facility] Comment on above: Performed By: #### U MICRO, ERUR #### [facility] [address] [address] [address] Etienne Ftich Calcium [Mass/Vol] 9.5 mg/dL Normal 8.5-10.1 [facility] Comment on above: Performed By: #### U MICRO, ERUR #### [facility] [address] [address] [address] Etienne Fitch Chloride [Moles/Vol] 102 mmol/L Normal 98-107 [facility] Comment on above: Performed By: #### U MICRO, ERUR #### [facility] [address] [address] [address] Etienne Fitch CO2 [Moles/Vol] 26.5 mmol/L Normal 21.0-32.0 [facility] Comment on above: Performed By: #### U MICRO, ERUR #### [facility] [address] [address] [address] Etienne Fitch Creatinine [Mass/Vol] 2.27 mg/dL Critically high 0.70-1.30 [facility] Comment on above: Performed By: #### U MICRO, ERUR #### [facility] [address] [address] [address] Etienne Fitch EGFR-AF MONEGASQUE 38 mL/min/1.73m2 Critically low >=60 [facility] Comment on above: Performed By: #### U MICRO, ERUR #### [facility] [address] [address] [address] Etienne Fitch EGFR-NON AF MONEGASQUE 32 mL/min/1.73m2 Critically low >=60 [facility] Comment on above: Performed By: #### U MICRO, ERUR #### [facility] [address] [address] [address] Etienne Fitch Globulin (S) [Mass/Vol] 4.4 g/dL Normal [facility] Comment on above: Performed By: #### U MICRO, ERUR #### [facility] [address] [place] [address] Dr. Etienne Fitch Glucose [Mass/Vol] 136 mg/dL Critically high 74-106 [facility] Comment on above: Performed By: #### U MICRO, ERUR #### [facility] [address] [address] [address] Etienne Fitch Potassium [Moles/Vol] 4.6 mmol/L Normal 3.5-5.1 [facility] Comment on above: Performed By: #### U MICRO, ERUR #### [facility] [address] [place] [address] Dr. Etienne Fitch Protein [Mass/Vol] 8.8 g/dL Critically high 6.4-8.2 [facility] Comment on above: Performed By: #### U MICRO, ERUR #### [facility] [address] [address] [address] Etienne Fitch Sodium [Moles/Vol] 143 mmol/L Normal 136-145 [facility] Comment on above: Performed By: #### U MICRO, ERUR #### [facility] [address] [place] [address] Dr. Etienne Fitch Urea nitrogen [Mass/Vol] 89.0 mg/dL Critically high 7.0-18.0 [facility] Comment on above: Performed By: #### U MICRO, ERUR #### [facility] [address] [place] [address] Dr. Etienne Fitch Urea nitrogen/Creatini ne [Mass ratio] 42.0 mg/mg Normal [facility] Comment on above: Performed By: #### U MICRO, ERUR #### [facility] [address] [address] [address] Etienne Fitch PROF CHEM 8 (BAS METB)on Anion gap [Moles/Vol] 12.4 mmol/L Normal [facility] Comment on above: Performed By: #### U MICRO, ERUR #### [facility] [address] [address] [address] Etienne Fitch Calcium [Mass/Vol] 8.9 mg/dL Normal 8.5-10.1 [facility] Comment on above: Performed By: #### U MICRO, ERUR #### [facility] [address] [place] [address] Dr. Etienne Fitch Chloride [Moles/Vol] 110 mmol/L Critically high 98-107 [facility] Comment on above: Performed By: #### U MICRO, ERUR #### [facility] [address] [address] [address] Etienne Fitch CO2 [Moles/Vol] 29.6 mmol/L Normal 21.0-32.0 [facility] Comment on above: Performed By: #### U MICRO, ERUR #### [facility] [address] [place] [address] Dr. Etienne Fitch Creatinine [Mass/Vol] 2.04 mg/dL Critically high 0.70-1.30 [facility] Comment on above: Performed By: #### U MICRO, ERUR #### [facility] [address] [address] [address] Etienne Fitch EGFR-AF MONEGASQUE 43 mL/min/1.73m2 Critically low >=60 [facility] Comment on above: Performed By: #### U MICRO, ERUR #### [facility] [address] [address] [address] Etienne Fitch EGFR-NON AF MONEGASQUE 36 mL/min/1.73m2 Critically low >=60 [facility] Comment on above: Performed By: #### U MICRO, ERUR #### [facility] [address] [address] [address] Etienne Fitch Glucose [Mass/Vol] 112 mg/dL Critically high 74-106 [facility] Comment on above: Performed By: #### U MICRO, ERUR #### [facility] [address] [address] [address] Etienne Fitch Potassium [Moles/Vol] 5.0 mmol/L Normal 3.5-5.1 [facility] Comment on above: Performed By: #### U MICRO, ERUR #### [facility] [address] [address] [address] Etienne Fitch Sodium [Moles/Vol] 147 mmol/L Critically high 136-145 [facility] Comment on above: Performed By: #### U MICRO, ERUR #### [facility] [address] [address] [address] Etienne Fitch Urea nitrogen [Mass/Vol] 79.0 mg/dL Critically high 7.0-18.0 [facility] Comment on above: Performed By: #### U MICRO, ERUR #### [facility] [address] [address] [address] Etienne Fitch Urea nitrogen/Creatini ne [Mass ratio] 38.7 mg/mg Normal [facility] Comment on above: Performed By: #### U MICRO, ERUR #### [facility] [address] [address] [address] Etienne Fitch Ambulatory Visit Summaryon 1 [...] Nausea & vomiting RLQ abdominal pain Normal [facility] General Surgery Office/Clini c Noteon [...] Father. Heart disease: Mother. TIA: Mother. Normal [facility] Comment on above: Result Comment: Elec tronically Signed By: SAMIR MOCK, Anupam Thompson\Date and Time Signed: 08/07/22 13:24 EDT Reminderson 08-07-2022 Reminders - From: Harika Simmons LPN To: N - Clinical; Sent: 08/07/2022 13:07:35 EDT Show up: 06/23/2032 07:00:00 EDT Subject: colonoscopy recall Due Date/Time: 07/24/2032 07:00:00 EDT Reminder/Recall Patient is due for screening colonoscopy 07/24/2032. Normal [facility] Pathology Noteon 07-29-2022 Pathology Note [id number]#1.00CD:127 Normal [facility] Outside Colonoscopyon 2021 Outside Colonoscopy [id number]#1.00CD:127 Normal [facility] RAD - MRI Reporton RAD - MRI Report [id number]#1.00CD:127 Normal [facility] Lab Reportson 07-22-2022 Lab Reports [id number]#1.00CD:127 Normal [facility] RAD - MRI Reporton RAD - MRI Report [id number]#1.00CD:127 Normal [facility] SARS-CoV-2 (COVID-19) RNA KWABENA+probe Ql (Unsp spec) Not detected Normal NOT DETECTED [facility] Comment on above: Result Comment: This test is not yet approved or cleared by the [place] FDA. When there are no FDA-approved or cleared tests available, and other criteria are met, FDA can make tests available under an emergency access mechanism called an Emergency Use Authorization (EUA). The EUA for this test is supported by the [place] of Health and Human Service's (HHS's) declaration [...] consistent with SARS-CoV-2. Performed By: #### C [facility] #### [facility] [address] [place] [address] Dr. Etienne Fitch MRI ABDOMEN WO CONon [...] by: ALEXA HOWARD Date: 2022-07-19 07:49 Normal [facility] Consent for Procedure/Surger yon 07-04-2022 Consent for Procedure/Surgery [id number]:127 Normal [facility] Ambulatory Visit Summaryon 0 07-02-2022 Ambulatory Visit [...] Nausea & vomiting RLQ abdominal pain Normal [facility] ED Note-Physicianon 07-02-20 ED Note-Physician [id number]#[id number]:127 Normal [facility] RAD - MISCon 06-27-2022 RAD - MISC [id number]:127 Normal [facility] AMYLASEon 06-15-2022 Amylase [Catalytic activity/Vol] 47 U/L Normal 25-115 [facility] Comment on above: Performed By: #### L ACT #### [facility] [address] [place] [address] Dr. Etienne Fitch CBC AUTO DIFFon 06-15-2022 BASO # 0.1 103/ul Normal 0.0-0.1 [facility] Comment on above: Performed By: #### U MICRO, ERUR #### [facility] [address] [place] [address] Dr. Etienne Fitch Basophils/100 WBC (Bld) 0.5 % Normal 0.2-2.0 [facility] Comment on above: Performed By: #### U MICRO, ERUR #### [facility] [address] [place] [address] Dr. Etienne Fitch EO # 0.0 103/ul Normal 0.0-0.7 [facility] Comment on above: Performed By: #### U MICRO, ERUR #### [facility] [address] [place] [address] Dr. Etienne Fitch Eosinophils/100 WBC (Bld) 0.1 % Critically low 0.9-7.0 [facility] Comment on above: Performed By: #### U MICRO, ERUR #### [facility] [address] [place] [address] Dr. Etienne Fitch Erythrocyte distribution width (RBC) [Ratio] 11.9 % Normal 11.0-15.0 [facility] Comment on above: Performed By: #### U MICRO, ERUR #### [facility] [address] [place] [address] Dr. Etienne Fitch Hematocrit (Bld) [Volume fraction] 48.4 % Normal 42.0-54.0 [facility] Comment on above: Performed By: #### U MICRO, ERUR #### [facility] [address] [place] [address] Dr. Etienne Fitch Hemoglobin (Bld) [Mass/Vol] 16.6 g/dL Normal 14.0-18.0 [facility] Comment on above: Performed By: #### U MICRO, ERUR #### [facility] [address] [place] [address] Dr. Etienne Fitch IG # 0.06 10e3/ul Critically high 0.00-0.03 [facility] Comment on above: Performed By: #### U MICRO, ERUR #### [facility] [address] [place] [address] Dr. Etienne Fitch IG % 0.4 % Normal 0.0-0.5 [facility] Comment on above: Performed By: #### U MICRO, ERUR #### [facility] [address] [place] [address] Dr. Etienne Fitch LYMPH # 0.8 103/ul Critically low 1.2-3.8 [facility] Comment on above: Performed By: #### U MICRO, ERUR #### [facility] [address] [place] [address] Dr. Etienne Fitch Lymphocytes/100 WBC (Bld) 5.0 % Critically low 20.5-60.0 [facility] Comment on above: Performed By: #### U MICRO, ERUR #### [facility] [address] [place] [address] Dr. Etienne Fitch MANUAL DIFF REQ NO Normal [facility] Comment on above: Performed By: #### U MICRO, ERUR #### [facility] [address] [place] [address] Dr. Etienne Fitch MCH (RBC) [Entitic mass] 30.9 pg Normal 25.9-34.0 [facility] Comment on above: Performed By: #### U MICRO, ERUR #### [facility] [address] [place] [address] Dr. Etienne Fitch MCHC (RBC) [Mass/Vol] 34.3 g/dL Normal 29.9-35.2 [facility] Comment on above: Performed By: #### U MICRO, ERUR #### [facility] [address] [place] [address] Dr. Etienne Fitch MCV (RBC) [Entitic vol] 90.1 fL Normal 80.0-94.0 [facility] Comment on above: Performed By: #### U MICRO, ERUR #### [facility] [address] [address] [address] Etienne Fitch MONO # 0.8 103/ul Normal 0.3-0.8 [facility] Comment on above: Performed By: #### U MICRO, ERUR #### [facility] [address] [place] [address] Dr. Etienne Fitch Monocytes/100 WBC (Bld) 5.3 % Normal 1.7-12.0 [facility] Comment on above: Performed By: #### U MICRO, ERUR #### [facility] [address] [place] [address] Dr. Etienne Fitch NEUT # 13.9 103/ul Critically high 1.4-6.5 [facility] Comment on above: Performed By: #### U MICRO, ERUR #### [facility] [address] [place] [address] Dr. Etienne Fitch Neutrophils/100 WBC (Bld) 88.7 % Critically high 43.0-75.0 [facility] Comment on above: Performed By: #### U MICRO, ERUR #### [facility] [address] [place] [address] Dr. Etienne Fitch Platelet mean volume (Bld) [Entitic vol] 10.9 fL Normal 9.5-13.5 [facility] Comment on above: Performed By: #### U MICRO, ERUR #### [facility] [address] [place] [address] Dr. Etienne Fitch PLT 424 103/ul Normal 150-450 [facility] Comment on above: Performed By: #### U MICRO, ERUR #### [facility] [address] [place] [address] Dr. Etienne Fitch RBC 5.37 106/ul Normal 4.70-6.10 [facility] Comment on above: Performed By: #### U MICRO, ERUR #### [facility] [address] [place] [address] Dr. Etienne Fitch WBC 15.7 103/ul Critically high 4.0-11.0 [facility] Comment on above: Performed By: #### U MICRO, ERUR #### [facility] [address] [address] [address] Etienne Fitch DRUG SCREEN RAPID (URINE)on 06-15-2022 AMP Negative Normal NEGATIVE [facility] Comment on above: Performed By: #### D RUGRPD #### [facility] [address] [place] [address] Dr. Etienne Fitch BAR Negative Normal NEGATIVE [facility] Comment on above: Performed By: #### D RUGRPD #### [facility] [address] [address] [address] Etienne Fitch BUP Negative Normal NEGATIVE [facility] Comment on above: Performed By: #### D RUGRPD #### [facility] [address] [place] [address] Dr. Etienne Fitch BZO Negative Normal NEGATIVE [facility] Comment on above: Performed By: #### D RUGRPD #### [facility] [address] [place] [address] Dr. Etienne Fitch MILTON Negative Normal NEGATIVE [facility] Comment on above: Performed By: #### D RUGRPD #### [facility] [address] [place] [address] Dr. Etienne Fitch CUT-OFFS SEE BELOW Normal [facility] Comment on above: Result Comment: AMP (Amphetamine): 500ng/mL, BAR (Barbituates): 200 ng/mL, BZO (Benzodiazepines): 150 ng/mL, BUP (Buprenorphine): 10 ng/mL, MILTON (Cocaine): 150 ng/mL, mAMP (Methamphetamine): 500 ng/mL, MTD (Methadone): 200 ng/mL, OPI (Opiates): 100 ng/mL, OXY (Oxycodone): 100 ng/mL, PCP (Phencyclidine): 25 ng/mL, PPX (Propoxyphene): 300 ng/mL, THC (Cannabinoids): 50 ng/mL, TCA (Trycyclic Antidepressants): 300 ng/mL Performed By: #### D RUGRPD #### [facility] [address] [place] [address] Dr. Etienne Fitch DRUG CUT HEADER DRUG CLASS TEST SYST EM CUT-OFF CONCENTRATIONS ARE FOLLOWS: Normal [facility] Comment on above: Performed By: #### D RUGRPD #### [facility] [address] [address] [address] Etienne Fitch mAMP Negative Normal NEGATIVE [facility] Comment on above: Performed By: #### D RUGRPD #### [facility] [address] [address] [address] Etienne Fitch MTD Negative Normal NEGATIVE [facility] Comment on above: Performed By: #### D RUGRPD #### [facility] [address] [place] [address] Dr. Etienne Fitch OPI Negative Normal NEGATIVE [facility] Comment on above: Performed By: #### D RUGRPD #### [facility] [address] [place] [address] Dr. Etienne Fitch OXY Negative Normal NEGATIVE [facility] Comment on above: Performed By: #### D RUGRPD #### [facility] [address] [place] [address] Dr. Etienne Fitch PCP Negative Normal NEGATIVE [facility] Comment on above: Performed By: #### D RUGRPD #### [facility] [address] [place] [address] Dr. Etienne Fitch PPX Negative Normal NEGATIVE [facility] Comment on above: Performed By: #### D RUGRPD #### [facility] [address] [place] [address] Dr. Etienne Fitch TCA Negative Normal NEGATIVE [facility] Comment on above: Performed By: #### D RUGRPD #### [facility] [address] [place] [address] Dr. Etienne Fitch THC Positive Abnormal NEGATIVE [facility] Comment on above: Performed By: #### D RUGRPD #### [facility] [address] [place] [address] Dr. Etienne Fitch ER URINE PROFILEon 2 Bilirubin Ql (U) MODERATE Abnormal NEGATIVE [facility] Comment on above: Performed By: #### U MICRO, ERUR #### [facility] [address] [place] [address] Dr. Etienne Fitch Clarity (U) CLEAR Normal CLEAR [facility] Comment on above: Performed By: #### U MICRO, ERUR #### [facility] [address] [address] [address] Etienne Fitch Color (U) DK. ORANGE Abnormal YELLOW [facility] Comment on above: Performed By: #### U MICRO, ERUR #### [facility] [address] [place] [address] Dr. Etienne Fitch ERUAHD A micrscopic examina tion will be performed if indicated. Normal [facility] Comment on above: Performed By: #### U MICRO, ERUR #### [facility] [address] [place] [address] Dr. Etienne Fitch Glucose Ql (U) Negative Normal NEGATIVE [facility] Comment on above: Performed By: #### U MICRO, ERUR #### [facility] [address] [place] [address] Dr. Etienne Fitch Hemoglobin Ql (U) Negative Normal NEGATIVE [facility] Comment on above: Performed By: #### U MICRO, ERUR #### [facility] [address] [place] [address] Dr. Etienne Fitch Ketones Ql (U) 40 mg/dl Abnormal NEGATIVE [facility] Comment on above: Performed By: #### U MICRO, ERUR #### [facility] [address] [place] [address] Dr. Etienne Fitch LEUKOCYTES Negative Normal NEGATIVE [facility] Comment on above: Performed By: #### U MICRO, ERUR #### [facility] [address] [address] [address] Etienne Fitch Nitrite Ql (U) Negative Normal NEGATIVE [facility] Comment on above: Performed By: #### U MICRO, ERUR #### [facility] [address] [place] [address] Dr. Etienne Fitch pH (U) 6.0 [pH] Normal 5-9 [facility] Comment on above: Performed By: #### U MICRO, ERUR #### [facility] [address] [place] [address] Dr. Etienne Fitch Protein (U) [Mass/Vol] 100 mg/dL Abnormal NEGATIVE/ TRACE [facility] Comment on above: Performed By: #### U MICRO, ERUR #### [facility] [address] [place] [address] Dr. Etienne Fitch SPEC GRAVITY >=1.030 Abnormal 1.005-<=1.02 5 [facility] Comment on above: Performed By: #### U MICRO, ERUR #### [facility] [address] [place] [address] Dr. Etienne Fitch UR MICRO IND INDICATED Normal [facility] Comment on above: Performed By: #### U MICRO, ERUR #### [facility] [address] [place] [address] Dr. Etienne Fitch Urobilinogen Qn (U) 1.0 {Nesha'U}/dL Normal 0.2 - 1.0 [facility] Comment on above: Performed By: #### U MICRO, ERUR #### [facility] [address] [place] [address] Dr. Etienne Fitch ETHANOL (BLD ALC)on 06-15-20 ALC NOTE NOTE: 80 mg/dl is th e legal limit for a blood alcohol level Normal [facility] Comment on above: Performed By: #### E TH #### [facility] [address] [place] [address] Dr. Etienne Fitch Ethanol [Mass/Vol] mg/dL Normal [facility] Comment on above: Performed By: #### E TH #### [facility] [address] [place] [address] Dr. Etienne Fitch LIPASEon 06-15-2022 Lipase [Catalytic activity/Vol] 32.0 U/L Critically low 73.0-393.0 [facility] Comment on above: Performed By: #### L ACT #### [facility] [address] [place] [address] Dr. Etienne Fitch PROF 14(COMP METB)on Albumin [Mass/Vol] 5.4 g/dL Critically high 3.4-5.0 [facility] Comment on above: Performed By: #### L ACT #### [facility] [address] [place] [address] Dr. Etienne Fitch Albumin/Globulin [Mass ratio] 1.4 {ratio} Normal [facility] Comment on above: Performed By: #### L ACT #### [facility] [address] [address] [address] Etienne Fitch ALP [Catalytic activity/Vol] 93 U/L Normal 46-116 [facility] Comment on above: Performed By: #### L ACT #### [facility] [address] [place] [address] Dr. Etienne Fitch ALT [Catalytic activity/Vol] 19 U/L Normal 16-63 [facility] Comment on above: Performed By: #### L ACT #### [facility] [address] [place] [address] Dr. Etienne Fitch Anion gap [Moles/Vol] 18.2 mmol/L Normal [facility] Comment on above: Performed By: #### L ACT #### [facility] [address] [place] [address] Dr. Etienne Fitch AST [Catalytic activity/Vol] 23 U/L Normal 15-37 [facility] Comment on above: Performed By: #### L ACT #### [facility] [address] [place] [address] Dr. Etienne Fitch Bilirubin [Mass/Vol] 3.0 mg/dL Critically high 0.2-1.0 [facility] Comment on above: Performed By: #### L ACT #### [facility] [address] [place] [address] Dr. Etienne Fitch Calcium [Mass/Vol] 11.2 mg/dL Critically high 8.5-10.1 [facility] Comment on above: Performed By: #### L ACT #### [facility] [address] [place] [address] Dr. Etienne Fitch Chloride [Moles/Vol] 102 mmol/L Normal 98-107 [facility] Comment on above: Performed By: #### L ACT #### [facility] [address] [place] [address] Dr. Etienne Fitch CO2 [Moles/Vol] 27.0 mmol/L Normal 21.0-32.0 [facility] Comment on above: Performed By: #### L ACT #### [facility] [address] [address] [address] Etienne Fitch Creatinine [Mass/Vol] 1.49 mg/dL Critically high 0.70-1.30 [facility] Comment on above: Performed By: #### L ACT #### [facility] [address] [address] [address] Etienne Fitch EGFR-AF MONEGASQUE >60 Normal >=60 [facility] Comment on above: Performed By: #### L ACT #### [facility] [address] [address] [address] Etienne Fitch EGFR-NON AF MONEGASQUE 51 mL/min/1.73m2 Critically low >=60 [facility] Comment on above: Performed By: #### L ACT #### [facility] [address] [place] [address] Dr. Etienne Fitch Globulin (S) [Mass/Vol] 4.0 g/dL Normal [facility] Comment on above: Performed By: #### L ACT #### [facility] [address] [place] [address] Dr. Etienne Fitch Glucose [Mass/Vol] 183 mg/dL Critically high 74-106 [facility] Comment on above: Performed By: #### L ACT #### [facility] [address] [place] [address] Dr. Etienne Fitch Potassium [Moles/Vol] 4.2 mmol/L Normal 3.5-5.1 [facility] Comment on above: Performed By: #### L ACT #### [facility] [address] [address] [address] Etienne Fitch Protein [Mass/Vol] 9.4 g/dL Critically high 6.4-8.2 [facility] Comment on above: Performed By: #### L ACT #### [facility] [address] [address] [address] Etienne Fitch Sodium [Moles/Vol] 143 mmol/L Normal 136-145 [facility] Comment on above: Performed By: #### L ACT #### [facility] [address] [place] [address] Dr. Etienne Fitch Urea nitrogen [Mass/Vol] 19.0 mg/dL Critically high 7.0-18.0 [facility] Comment on above: Performed By: #### L ACT #### [facility] [address] [place] [address] Dr. Etienne Fitch Urea nitrogen/Creatini ne [Mass ratio] 12.8 mg/mg Normal [facility] Comment on above: Performed By: #### L ACT #### [facility] [address] [place] [address] Dr. Etienne Fitch URINE MICROSCOPIC ONLYon BACTERIA TRACE Abnormal NONE SEEN [facility] Comment on above: Performed By: #### U MICRO, ERUR #### [facility] [address] [place] [address] Dr. Etienne Fitch Bacteria identified Cx Nom (U) NOT INDICATED Normal [facility] Comment on above: Performed By: #### U MICRO, ERUR #### [facility] [address] [place] [address] Dr. Etienne Fitch CAST SEEN Abnormal NONE SEEN [facility] Comment on above: Performed By: #### U MICRO, ERUR #### [facility] [address] [place] [address] Dr. Etienne Fitch Crystals LM Nom (Urine sed) NONE SEEN Normal NONE SEEN [facility] Comment on above: Performed By: #### U MICRO, ERUR #### [facility] [address] [place] [address] Dr. Etienne Fitch Epithelial cells LM Ql (Urine sed) NONE SEEN Normal NONE SEEN /RARE [facility] Comment on above: Performed By: #### U MICRO, ERUR #### [facility] [address] [place] [address] Dr. Etienne Fitch HYALINE CAST MODERATE Normal [facility] Comment on above: Performed By: #### U MICRO, ERUR #### [facility] [address] [address] [address] Etienne Fitch MUCOUS MODERATE Abnormal NONE SEEN [facility] Comment on above: Performed By: #### U MICRO, ERUR #### [facility] [address] [address] [address] Etienne Fitch RBC 0-2 Normal 0-2 [facility] Comment on above: Performed By: #### U MICRO, ERUR #### [facility] [address] [address] [address] Etienne Fitch WBC NONE SEEN Normal NONE SEEN [facility] Comment on above: Performed By: #### U MICRO, ERUR #### [facility] [address] [address] [address] Etienne Fitch XR ABD FLAT UP_PA [...] by: SHILPI THAPA Date: 2022-06-15 09:44 Normal [facility] ED Note-Physicianon 04-03-20 ED Note-Physician [id number]:127 Normal [facility] CBC W MANUAL DIFFon 04-02-20 22 ATYPICAL LYMPH # Normal [facility] Comment on above: Performed By: #### U MICRO, ERUR #### [facility] [address] [address] [address] Etienne Fitch ATYPICAL LYMPH % Normal [facility] Comment on above: Performed By: #### U MICRO, ERUR #### [facility] [address] [address] [address] Etienne Fitch BAND # Normal 0.0-0.3 [facility] Comment on above: Performed By: #### U MICRO, ERUR #### [facility] [address] [place] [address] Dr. Etienne Fitch BAND % Normal 0-5 [facility] Comment on above: Performed By: #### U MICRO, ERUR #### [facility] [address] [place] [address] Dr. Etienne Fitch BASOM # 0.00 103/ul Normal 0.00-0.10 [facility] Comment on above: Performed By: #### U MICRO, ERUR #### [facility] [address] [place] [address] Dr. Etienne Fitch BASOM % 0.0 % Critically low 0.2-2.0 [facility] Comment on above: Performed By: #### U MICRO, ERUR #### [facility] [address] [place] [address] Dr. Etienne Fitch BLAST # Normal [facility] Comment on above: Performed By: #### U MICRO, ERUR #### [facility] [address] [place] [address] Dr. Etienne Fitch BLAST % Normal [facility] Comment on above: Performed By: #### U MICRO, ERUR #### [facility] [address] [place] [address] Dr. Etienne Fitch CORRECTED WBC Normal 4.0-11.0 [facility] Comment on above: Performed By: #### U MICRO, ERUR #### [facility] [address] [place] [address] Dr. Etienne Fitch EOS # 0.00 103/ul Normal 0.00-0.70 [facility] Comment on above: Performed By: #### U MICRO, ERUR #### [facility] [address] [place] [address] Dr. Etienne Fitch EOS% 0.0 % Critically low 0.9-7.0 [facility] Comment on above: Performed By: #### U MICRO, ERUR #### [facility] [address] [place] [address] Dr. Etienne Fitch HCT 43.5 % Normal 42.0-54.0 [facility] Comment on above: Performed By: #### U MICRO, ERUR #### [facility] [address] [place] [address] Dr. Etienne Fitch HGB 14.3 g/dl Normal 14.0-18.0 [facility] Comment on above: Result Comment: gett ing fluids Performed By: #### U MICRO, ERUR #### [facility] [address] [place] [address] Dr. Etienne Fitch LYMPHM # 3.30 103/ul Normal 1.20-3.80 [facility] Comment on above: Performed By: #### U MICRO, ERUR #### [facility] [address] [place] [address] Dr. Etienne Fitch LYMPHM% 20.0 % Critically low 20.5-60.0 [facility] Comment on above: Performed By: #### U MICRO, ERUR #### [facility] [address] [place] [address] Dr. Etienne Fitch MCH 30.9 pg Normal 25.9-34.0 [facility] Comment on above: Performed By: #### U MICRO, ERUR #### [facility] [address] [place] [address] Dr. Etienne Fitch MCHC 32.9 g/dl Normal 29.9-35.2 [facility] Comment on above: Performed By: #### U MICRO, ERUR #### [facility] [address] [place] [address] Dr. Etienne Fitch MCV 94.0 fL Normal 80.0-94.0 [facility] Comment on above: Performed By: #### U MICRO, ERUR #### [facility] [address] [place] [address] Dr. Etienne Fitch METAMYELOCYTE # Normal [facility] Comment on above: Performed By: #### U MICRO, ERUR #### [facility] [address] [place] [address] Dr. Etienne Fitch METAMYELOCYTE % Normal [facility] Comment on above: Performed By: #### U MICRO, ERUR #### [facility] [address] [address] [address] Etienne Fitch MONOM# 2.31 103/ul Critically high 0.30-0.80 [facility] Comment on above: Performed By: #### U MICRO, ERUR #### [facility] [address] [place] [address] Dr. Etienne Fitch MONOM% 14.0 % Critically high 1.7-12.0 [facility] Comment on above: Performed By: #### U MICRO, ERUR #### [facility] [address] [place] [address] Dr. Etienne Fitch MPV 10.5 fL Normal 9.5-13.5 [facility] Comment on above: Performed By: #### U MICRO, ERUR #### [facility] [address] [place] [address] Dr. Etienne Fitch MYELOCYTE # Normal [facility] System Comment on above: Performed By: #### U MICRO, ERUR #### [facility] [address] [address] [address] Etienne Fitch MYELOCYTE % Normal [facility] Comment on above: Performed By: #### U MICRO, ERUR #### [facility] [address] [place] [address] Dr. Etienne Fitch NRBC Normal [facility] Comment on above: Performed By: #### U MICRO, ERUR #### [facility] [address] [address] [address] Etienne Fitch PLT 285 103/ul Normal 150-450 [facility] Comment on above: Performed By: #### U MICRO, ERUR #### [facility] [address] [address] [address] Etienne Fitch RBC 4.63 106/ul Critically low 4.70-6.10 [facility] Comment on above: Performed By: #### U MICRO, ERUR #### [facility] [address] [place] [address] Dr. Etienne Fitch RDW 12.8 % Normal 11.0-15.0 [facility] Comment on above: Performed By: #### U MICRO, ERUR #### [facility] [address] [address] [address] Etienne Fitch SEG # 10.89 103/ul Critically high 1.40-6.50 [facility] Comment on above: Performed By: #### U MICRO, ERUR #### [facility] [address] [address] [address] Etienne Fitch SEG % 66.0 % Normal 43.0-75.0 [facility] Comment on above: Performed By: #### U MICRO, ERUR #### [facility] [address] [place] [address] Dr. Etienne Fitch TOXIC GRANULATION 1+ Normal [facility] Comment on above: Performed By: #### U MICRO, ERUR #### [facility] [address] [place] [address] Dr. Etienne Fitch WBC 16.5 103/ul Critically high 4.0-11.0 [facility] Comment on above: Performed By: #### U MICRO, ERUR #### [facility] [address] [place] [address] Dr. Etienne Fitch PROF 14(COMP METB)on 022 Albumin [Mass/Vol] 3.2 g/dL Critically low 3.4-5.0 [facility] Comment on above: Performed By: #### L ACT #### [facility] [address] [place] [address] Dr. Etienne Fitch Albumin/Globulin [Mass ratio] 1.1 {ratio} Normal [facility] Comment on above: Performed By: #### L ACT #### [facility] [address] [place] [address] Dr. Etienne Fitch ALP [Catalytic activity/Vol] 55 U/L Normal 46-116 [facility] Comment on above: Performed By: #### L ACT #### [facility] [address] [place] [address] Dr. Etienne Fitch ALT [Catalytic activity/Vol] 28 U/L Normal 16-63 [facility] Comment on above: Performed By: #### L ACT #### [facility] [address] [address] [address] Etienne Fitch Anion gap [Moles/Vol] 12.6 mmol/L Normal [facility] Comment on above: Performed By: #### L ACT #### [facility] [address] [address] [address] Etienne Fitch AST [Catalytic activity/Vol] 20 U/L Normal 15-37 [facility] Comment on above: Performed By: #### L ACT #### [facility] [address] [address] [address] Etienne Fitch Bilirubin [Mass/Vol] 2.8 mg/dL Critically high 0.2-1.0 [facility] Comment on above: Performed By: #### L ACT #### [facility] [address] [place] [address] Dr. Etienne Fitch Calcium [Mass/Vol] 7.8 mg/dL Critically low 8.5-10.1 [facility] Comment on above: Performed By: #### L ACT #### [facility] [address] [address] [address] Etienne Fitch Chloride [Moles/Vol] 104 mmol/L Normal 98-107 [facility] Comment on above: Performed By: #### L ACT #### [facility] [address] [address] [address] Etienne Fitch CO2 [Moles/Vol] 28.0 mmol/L Normal 21.0-32.0 [facility] Comment on above: Performed By: #### L ACT #### [facility] [address] [address] [address] Etienne Fitch Creatinine [Mass/Vol] 0.97 mg/dL Normal 0.70-1.30 [facility] Comment on above: Performed By: #### L ACT #### [facility] [address] [address] [address] Etienne Fitch EGFR-AF MONEGASQUE >60 Normal >=60 [facility] Comment on above: Performed By: #### L ACT #### [facility] [address] [place] [address] Dr. Etienne Fitch EGFR-NON AF MONEGASQUE >60 Normal >=60 [facility] Comment on above: Performed By: #### L ACT #### [facility] [address] [address] [address] Etienne Fitch Globulin (S) [Mass/Vol] 2.9 g/dL Normal [facility] Comment on above: Performed By: #### L ACT #### [facility] [address] [address] [address] Etienne Fitch Glucose [Mass/Vol] 108 mg/dL Critically high 74-106 [facility] Comment on above: Performed By: #### L ACT #### [facility] [address] [place] [address] Dr. Etienne Fitch Potassium [Moles/Vol] 3.6 mmol/L Normal 3.5-5.1 [facility] Comment on above: Performed By: #### L ACT #### [facility] [address] [place] [address] Dr. Etienne Fitch Protein [Mass/Vol] 6.1 g/dL Critically low 6.4-8.2 [facility] Comment on above: Performed By: #### L ACT #### [facility] [address] [place] [address] Dr. Etienne Fitch Sodium [Moles/Vol] 141 mmol/L Normal 136-145 [facility] Comment on above: Performed By: #### L ACT #### [facility] [address] [address] [address] Etienne Fitch Urea nitrogen [Mass/Vol] 33.0 mg/dL Critically high 7.0-18.0 [facility] Comment on above: Performed By: #### L ACT #### [facility] [address] [place] [address] Dr. Etienne Fitch Urea nitrogen/Creatini ne [Mass ratio] 34.0 mg/mg Normal [facility] Comment on above: Performed By: #### L ACT #### [facility] [address] [place] [address] Dr. Etienne Fitch US SINGLE QUAD RT UPPERon US SINGLE QUAD RT UPPER EXAMINATION: US [...] ALEXA HOWARD Date: 2022-04-02 09:08 Normal [facility] CBC AUTO DIFFon 04-01-2022 BASO # 0.1 103/ul Normal 0.0-0.1 [facility] Comment on above: Performed By: #### U MICRO, ERUR #### [facility] [address] [address] [address] Etienne Fitch Basophils/100 WBC (Bld) 0.4 % Normal 0.2-2.0 [facility] Comment on above: Performed By: #### U MICRO, ERUR #### [facility] [address] [place] [address] Dr. Etienne Fitch EO # 0.0 103/ul Normal 0.0-0.7 [facility] Comment on above: Performed By: #### U MICRO, ERUR #### [facility] [address] [address] [address] Etienne Fitch Eosinophils/100 WBC (Bld) 0.0 % Critically low 0.9-7.0 [facility] Comment on above: Performed By: #### U MICRO, ERUR #### [facility] [address] [place] [address] Dr. Etienne Fitch Erythrocyte distribution width (RBC) [Ratio] 12.8 % Normal 11.0-15.0 [facility] Comment on above: Performed By: #### U MICRO, ERUR #### [facility] [address] [place] [address] Dr. Etienne Fitch Hematocrit (Bld) [Volume fraction] 55.1 % Critically high 42.0-54.0 [facility] Comment on above: Performed By: #### U MICRO, ERUR #### [facility] [address] [place] [address] Dr. Etienne Fitch Hemoglobin (Bld) [Mass/Vol] 18.3 g/dL Critically high 14.0-18.0 [facility] Comment on above: Performed By: #### U MICRO, ERUR #### [facility] [address] [place] [address] Dr. Etienne Fitch IG # 0.11 10e3/ul Critically high 0.00-0.03 [facility] Comment on above: Performed By: #### U MICRO, ERUR #### [facility] [address] [place] [address] Dr. Etienne Fitch IG % 0.5 % Normal 0.0-0.5 [facility] Comment on above: Performed By: #### U MICRO, ERUR #### [facility] [address] [place] [address] Dr. Etienne Fitch LYMPH # 1.2 103/ul Normal 1.2-3.8 [facility] Comment on above: Performed By: #### U MICRO, ERUR #### [facility] [address] [place] [address] Dr. Etienne Fitch Lymphocytes/100 WBC (Bld) 5.7 % Critically low 20.5-60.0 [facility] Comment on above: Performed By: #### U MICRO, ERUR #### [facility] [address] [place] [address] Dr. Etienne Fitch MANUAL DIFF REQ NO Normal [facility] Comment on above: Performed By: #### U MICRO, ERUR #### [facility] [address] [place] [address] Dr. Etienne Fitch MCH (RBC) [Entitic mass] 30.7 pg Normal 25.9-34.0 [facility] Comment on above: Performed By: #### U MICRO, ERUR #### [facility] [address] [place] [address] Dr. Etienne Fitch MCHC (RBC) [Mass/Vol] 33.2 g/dL Normal 29.9-35.2 [facility] Comment on above: Performed By: #### U MICRO, ERUR #### [facility] [address] [place] [address] Dr. Etienne Fitch MCV (RBC) [Entitic vol] 92.3 fL Normal 80.0-94.0 [facility] Comment on above: Performed By: #### U MICRO, ERUR #### [facility] [address] [place] [address] Dr. Etienne Fitch MONO # 1.6 103/ul Critically high 0.3-0.8 [facility] Comment on above: Performed By: #### U MICRO, ERUR #### [facility] [address] [place] [address] Dr. Etienne Fitch Monocytes/100 WBC (Bld) 7.4 % Normal 1.7-12.0 [facility] Comment on above: Performed By: #### U MICRO, ERUR #### [facility] [address] [place] [address] Dr. Etienne Fitch NEUT # 18.6 103/ul Critically high 1.4-6.5 [facility] Comment on above: Performed By: #### U MICRO, ERUR #### [facility] [address] [place] [address] Dr. Etienne Fitch Neutrophils/100 WBC (Bld) 86.0 % Critically high 43.0-75.0 [facility] Comment on above: Performed By: #### U MICRO, ERUR #### [facility] [address] [place] [address] Dr. Etienne Fitch Platelet mean volume (Bld) [Entitic vol] 10.3 fL Normal 9.5-13.5 [facility] Comment on above: Performed By: #### U MICRO, ERUR #### [facility] [address], [place] [address] Dr. Etienne Fitch PLT 447 103/ul Normal 150-450 [facility] Comment on above: Performed By: #### U MICRO, ERUR #### [facility] [address], [place] [address] Dr. Etienne Fitch RBC 5.97 106/ul Normal 4.70-6.10 [facility] Comment on above: Performed By: #### U MICRO, ERUR #### [facility] [address] [place], [place] [address] Dr. Etienne Fitch WBC 21.6 103/ul Critically high 4.0-11.0 [facility] Comment on above: Performed By: #### U MICRO, ERUR #### [facility] [address] [place], [place] [address] ABD/PELV W CONon [...] ALEXA HOWARD Date: 2022-04-01 15:11 Normal [facility] Covid-19 PCR (CVDTBH)on SARS-CoV-2 (COVID-19) RNA KWABENA+probe Ql (Unsp spec) Not detected Normal NOT DETECTED [facility] Comment on above: Result Comment: [...] for this test is supported by the Oncology Navigator of Health and Human Service's declaration that [...] used). Performed By: #### C VDTBH #### [facility] [address] [place] [address] Dr. Etienne Fitch ER URINE PROFILEon 2 Bilirubin Ql (U) MODERATE Abnormal NEGATIVE [facility] Comment on above: Performed By: #### U MICRO, ERUR #### [facility] [address] [place] [address] Dr. Etienne Fitch Clarity (U) CLEAR Normal CLEAR [facility] Comment on above: Performed By: #### U MICRO, ERUR #### [facility] [address] [place] [address] Dr. Etienne Fitch Color (U) DK. ORANGE Abnormal YELLOW [facility] Comment on above: Performed By: #### U MICRO, ERUR #### [facility] [address] [place] [address] Dr. Etienne Fitch ERUAHD A micrscopic examina tion will be performed if indicated. Normal [facility] Comment on above: Performed By: #### U MICRO, ERUR #### [facility] [address] [address] [address] Etienne Fitch Glucose Ql (U) Negative Normal NEGATIVE [facility] Comment on above: Performed By: #### U MICRO, ERUR #### [facility] [address] [address] [address] Etienne Fitch Hemoglobin Ql (U) Negative Normal NEGATIVE [facility] Comment on above: Performed By: #### U MICRO, ERUR #### [facility] [address] [place] [address] Dr. Etienne Fitch Ketones Ql (U) Negative Normal NEGATIVE [facility] Comment on above: Performed By: #### U MICRO, ERUR #### [facility] [address] [place] [address] Dr. Etienne Fitch LEUKOCYTES Negative Normal NEGATIVE [facility] Comment on above: Performed By: #### U MICRO, ERUR #### [facility] [address] [address] [address] Etienne Fitch Nitrite Ql (U) Negative Normal NEGATIVE [facility] Comment on above: Performed By: #### U MICRO, ERUR #### [facility] [address] [place] [address] Dr. Etienne Fitch pH (U) 5.5 [pH] Normal 5-9 [facility] Comment on above: Performed By: #### U MICRO, ERUR #### [facility] [address] [place] [address] Dr. Etienne Fitch Protein (U) [Mass/Vol] 100 mg/dL Abnormal NEGATIVE/ TRACE [facility] Comment on above: Performed By: #### U MICRO, ERUR #### [facility] [address] [place] [address] Dr. Etienne Fitch SPEC GRAVITY >=1.030 Abnormal 1.005-<=1.[address] [place] [address] Comment on above: Performed By: #### U MICRO, ERUR #### [facility] [address] [place] [address] Dr. Etienne Fitch UR MICRO IND INDICATED Normal [facility] Comment on above: Performed By: #### U MICRO, ERUR #### [facility] [address] [place] [address] Dr. Etienne Fitch Urobilinogen Qn (U) 1.0 {Nesha'U}/dL Normal 0.2 - 1.0 [facility] Comment on above: Performed By: #### U MICRO, ERUR #### [facility] [address] [place] [address] Dr. Etienne Ficth LACTATE/LACTIC ACIDon 2021 Lactate [Moles/Vol] 1.8 mmol/L Normal 0.4-1.9 [facility] Comment on above: Performed By: #### U MICRO, ERUR #### [facility] [address] [place] [address] Dr. Etienne Fitch Lactate [Moles/Vol] 2.3 mmol/L Critically high 0.4-1.9 [facility] Comment on above: Result Comment: repe ated Performed By: #### L ACT #### [facility] [address] [place] [address] Dr. Etienne Fitch LIPASEon 04-01-2022 Lipase [Catalytic activity/Vol] 32.0 U/L Critically low 73.0-393.0 [facility] Comment on above: Performed By: #### U MICRO, ERUR #### [facility] [address] [place] [address] Dr. Etienne Fitch PROF 14(COMP METB)on 022 Albumin [Mass/Vol] 4.9 g/dL Normal 3.4-5.0 [facility] Comment on above: Performed By: #### U MICRO, ERUR #### [facility] [address] [place] [address] Dr. Etienne Fitch Albumin/Globulin [Mass ratio] 1.2 {ratio} Normal [facility] Comment on above: Performed By: #### U MICRO, ERUR #### [facility] [address] [place] [address] Dr. Etienne Fitch ALP [Catalytic activity/Vol] 82 U/L Normal 46-116 [facility] Comment on above: Performed By: #### U MICRO, ERUR #### [facility] [address] [address] [address] Etienne Fitch ALT [Catalytic activity/Vol] 37 U/L Normal 16-63 [facility] Comment on above: Performed By: #### U MICRO, ERUR #### [facility] [address] [address] [address] Etienne Fitch Anion gap [Moles/Vol] 13.2 mmol/L Normal [facility] Comment on above: Performed By: #### U MICRO, ERUR #### [facility] [address] [address] [address] Etienne Fitch AST [Catalytic activity/Vol] 31 U/L Normal 15-37 [facility] Comment on above: Performed By: #### U MICRO, ERUR #### [facility] [address] [address] [address] Etienne Fitch Bilirubin [Mass/Vol] 4.8 mg/dL Critically high 0.2-1.0 [facility] Comment on above: Performed By: #### U MICRO, ERUR #### [facility] [address] [address] [address] Etienne Fitch Calcium [Mass/Vol] 9.8 mg/dL Normal 8.5-10.1 [facility] Comment on above: Performed By: #### U MICRO, ERUR #### [facility] [address] [address] [address] Etienne Fitch Chloride [Moles/Vol] 98 mmol/L Normal 98-107 [facility] Comment on above: Performed By: #### U MICRO, ERUR #### [facility] [address] [address] [address] Etienne Fitch CO2 [Moles/Vol] 31.2 mmol/L Normal 21.0-32.0 [facility] Comment on above: Performed By: #### U MICRO, ERUR #### [facility] [address] [address] [address] Etienne Fitch Creatinine [Mass/Vol] 1.63 mg/dL Critically high 0.70-1.30 [facility] Comment on above: Performed By: #### U MICRO, ERUR #### [facility] [address] [address] [address] Etienne Fitch EGFR-AF MONEGASQUE 56 mL/min/1.73m2 Critically low >=60 [facility] Comment on above: Performed By: #### U MICRO, ERUR #### [facility] [address] [address] [address] Etienne Fitch EGFR-NON AF MONEGASQUE 46 mL/min/1.73m2 Critically low >=60 [facility] Comment on above: Performed By: #### U MICRO, ERUR #### [facility] [address] [address] [address] Etienne Fitch Globulin (S) [Mass/Vol] 4.1 g/dL Normal [facility] Comment on above: Performed By: #### U MICRO, ERUR #### [facility] [address] [address] [address] Etienne Fitch Glucose [Mass/Vol] 142 mg/dL Critically high 74-106 [facility] Comment on above: Performed By: #### U MICRO, ERUR #### [facility] [address] [place] [address] Dr. Etienne Fitch Potassium [Moles/Vol] 3.4 mmol/L Critically low 3.5-5.1 [facility] Comment on above: Performed By: #### U MICRO, ERUR #### [facility] [address] [place] [address] Dr. Etienne Fitch Protein [Mass/Vol] 9.0 g/dL Critically high 6.4-8.2 [facility] Comment on above: Performed By: #### U MICRO, ERUR #### [facility] [address] [place] [address] Dr. Etienne Fitch Sodium [Moles/Vol] 139 mmol/L Normal 136-145 [facility] Comment on above: Performed By: #### U MICRO, ERUR #### [facility] [address] [address] [address] Etienne Fitch Urea nitrogen [Mass/Vol] 40.0 mg/dL Critically high 7.0-18.0 [facility] Comment on above: Performed By: #### U MICRO, ERUR #### [facility] [address] [address] [address] Etienne Fitch Urea nitrogen/Creatini ne [Mass ratio] 24.5 mg/mg Normal [facility] Comment on above: Performed By: #### U MICRO, ERUR #### [facility] [address] [address] [address] Etienne Fitch TROPONIN, HIGH SENSITIVITYon 04-01-2022 HSTROP 44.4 pg/mL Normal 4.0-76.1 [facility] Comment on above: Result Comment: CUT- OFF POINTS HAVE BEEN ESTABLISHED BASED ON THE FOURTH UNIVERSAL DEFINITIONS OF MYOCARDIAL INFARCTION. THE UPPER REFERENCE LIMIT (URL) OF TROPONIN, DEFINED THE 99TH PERCENTILE OF cTnI DISTRIBUTION IN A REFERENCE POPULATION, HAS BEEN CONFIRMED THE DECISION THRESHOLD FOR [place] DIAGNOSIS. Performed By: #### U MICRO, ERUR #### [facility] [address] [place] [address] Dr. Etienne Fitch URINE MICROSCOPIC ONLYon BACTERIA NONE SEEN Normal NONE SEEN [facility] Comment on above: Performed By: #### U MICRO, ERUR #### [facility] [address] [place] [address] Dr. Etienne Fitch Bacteria identified Cx Nom (U) NOT INDICATED Normal [facility] Comment on above: Performed By: #### U MICRO, ERUR #### [facility] [address] [address] [address] Etienne Fitch CAST SEEN Abnormal NONE SEEN [facility] Comment on above: Performed By: #### U MICRO, ERUR #### [facility] [address] [address] [address] Etienne Fitch Crystals LM Nom (Urine sed) NONE SEEN Normal NONE SEEN [facility] Comment on above: Performed By: #### U MICRO, ERUR #### [facility] [address] [place] [address] Dr. Etienne Fitch Epithelial cells LM Ql (Urine sed) NONE SEEN Normal NONE SEEN /RARE [facility] Comment on above: Performed By: #### U MICRO, ERUR #### [facility] [address] [address] [address] Etienne Fitch MUCOUS NONE SEEN Normal NONE SEEN [facility] Comment on above: Performed By: #### U MICRO, ERUR #### [facility] [address] [address] [address] Etienne Fitch RBC NONE SEEN Abnormal 0-2 [facility] Comment on above: Performed By: #### U MICRO, ERUR #### [facility] [address] [address] [address] Etienne Fitch WBC 0-2 Abnormal NONE SEEN [facility] Comment on above: Performed By: #### U MICRO, ERUR #### [facility] [address] [address] [address] Etienne Fitch Vital Signs Date Time Vital Sign Value Performing Clinician Faci emanuely 07-02-2022 13:15-0400 Blood Pressure Location [employer] [facility] 07-02-2022 13:15-0400 Diastolic blood pressure 74 mm[Hg] [employer] [facility] 07-02-2022 13:15-0400 Heart rate 72 /min [employer] [facility] 07-02-2022 13:15-0400 Respiratory rate 16 /min [employer] [facility] [place] 07-02-2022 13:15-0400 Systolic blood pressure 120 mm[Hg] [employer] [facility] [place] Encounters Encounter Date Encounter Type Care Provider Facility Start: 02-07-2023 Encounter for genera l adult medical examination without abnormal findings [facility] Start: 01-29-2023 End: 01-30-2023 ambulatory [facility] Facility:[facility] Start: 01-29-2023 End: 01-30-2023 Encounter for general adult medical examination without abnormal findings [facility] Facility:[facility] Start: 12-18-2022 End: 12-19-2022 ambulatory MAKENZIE Dedrick JOHNNY Facility:[facility] Start: 12-12-2022 End: 12-12-2022 ambulatory EVELYN GLASER . Facility: Start: 08-07-2022 ambulatory Anupam POOLE Facility :[facility] Start: 08-07-2022 End: 08-07-2022 Patient encounter procedure Anupam POOLE General Surgery [facility] Start: 07-24-2022 Encounter for preprocedural laboratory examination DR ANUPAM POOLE . [facility] Start: 07-24-2022 End: 07-25-2022 ambulatory Anupam POOLE Facility:CD:[id number] Start: 07-20-2022 End: 07-21-[address] ANUPAM POOLE . Facility: Start: 07-20-2022 End: 07-21-2022 Encounter for preprocedural laboratory examination DR ANUPAM POOLE . Facility: Start: 07-17-2022 End: 07-18-[address] ANUPAM POOLE . Facility: Start: 07-02-2022 End: 07-03-2022 ambulatory Anupam POOLE Facility:[facility] Start: 07-02-2022 End: 07-02-2022 Patient encounter procedure Anupam POOLE General Surgery [facility] Start: 06-15-2022 End: 06-15-2022 ambulatory EVELYN GLASER . Facility: Start: 04-23-2022 ambulatory Anupam POOLE Facility :[facility] Start: 04-02-2022 ambulatory Anupam POOLE Facility :[facility] Start: 04-01-2022 End: 04-02-[address] ALEXA HOWARD Facility: Procedures Date Procedure Procedure Detail Performing Clinician Start: 07-24-2022 Colonoscopy Anupam ELLIOTT Start: 07-24-2022 Esophagogastroduodenoscopy Anupam POOLE None (qualifier value) Elias POOLE Payers Date Payer Category Payer Unknown [id number] 2.16.8 [id number] 1978 Unknown [id number] 2.16.8 40.1.970205.3.579.2.727 1978 Unknown [id number] 2.16.8 40.1.548582.3.579.2.727 1978 Unknown [id number] 2.16.8 40.1.005481.3.579.2.727 1978 Unknown [id number] 2.16.84 0.1.045781.3.579.2.593 1978 Unknown [id number] 2.16.84 0.1.689436.3.579.2.593 1978 Unknown [id number] 2.16.84 0.1.832247.3.579.2.593 1978 Unknown [id number] 2.16.84 0.1.381847.3.579.2.593 1978 Unknown [id number] 2.16.84 0.1.908079.3.579.2.593 1978 Unknown [id number] 2.16.84 0.1.942458.3.579.2.593 1978 Unknown [id number] 2.16.84 0.1.985550.3.579.2.593 1978 Unknown [id number] 2.16.84 0.1.163916.3.579.2.593 1959 Unknown [id number] Social History Date Type Detail Facility Start: 07-02-2022 Tobacco smoking status Ex-smoker (fi nding) [facility] Tobacco smoking status Smokeless tobacco user within last 30 days [facility] Sex Assigned At Male [facility] Functional Status Date Assessment Result Facility 07-02-2022 Functional Status N/A [facility] Clinical Note 07-24-2022 Note Date & Type [...] in good condition. CC: Family physician [facility] Clinical Note 07-02-2022 Note Date & Type Note Facility 07-02-2022 Note Chief Complaint consultation for ABD pain HPI Staff 41 year old male presents on consultation from [facility] for abdominal pain. Presented to [...] elevated wbc; abd/pelvic ct scan in March wnl, images reviewed; also had GB US that [...] Allergies No K (more content not included)... [facility] Comment on above: Result Comment: Elec tronically Signed By: SAMIR MOCK, Anupam Thompson\Date and Time Signed: 07/02/22 21:30 EDT History and physical note 04-03-2022 Note Date & Type Note Facility 04-03-2022 Note [id number] #[id number] [facility] Evaluation + Plan note Note Date & Type Note Facility Evaluation + Plan note No data available for this section [facility] Discharge instructions Note Date & Type Note Facility Hospital Discharge instructions No data available for this section [facility] Progress note Note Date & Type Note Facility Progress note No data available for this section [facility] Summary Purpose Family History No Family History Records FoundNo Family History Records Found Advance Directives No Advanced Directives Records FoundNo Advanced Directives Records Found Additional Source Comments Care Team (unrecognized sect ion and content) Personnel Name: RANJANA TRAYLOR MD Address: [address] [place] [id number] Personnel Name: RANJANA TRAYLOR MD Address: Address: [address] [place], [place] [id number] [address] (unrecognized sect ion and content) No Status Records FoundNo Status Records Found INFORMATION SOURCE (unrecogn ized section and content) DATE CREATED AUTHOR 08/07/[address] [facility] DATE CREATED AUTHOR AUTHOR'Shyann LOPEZ 02/08/2023 Bossman brady FOR RECORDS PERTAINING [...] BE BASED ON THE PRIMARY CLINICAL RECORDS. [facility] [employer] provides no warranty or guarantee of the accuracy or completeness of information in this document.
[2024-05-22 19:56] VITALS: TEMP 36.7
--- NOTE | 2024-05-22 19:57 | PC.NURSE ---
Pt reports the possibility of being diagnosed with cyclic vomiting syndrome in the past. These episodes occur every couple of months. Pt has had multiple CTs and GI scopes in the past without diagnosis.
--- NOTE | 2024-05-22 20:09 | XR_ITS ---
The [address] [address] Patient Name: GERALDINE RICCI MRN: [id number] date: 1980 Sex: M Assigned Patient Location: ER Current Patient Location: ER Accession/Order Number: [id number] Exam Date: 05/22/2024 21:50 Report Date: 05/22/2024 22:19 At the request of: ROBERTA CHIRINOS Procedure: XR abdomen min 2V EXAM: PLAIN FILM OF THE ABDOMEN HISTORY: Abdominal pain. COMPARISON: None. TECHNIQUE: 2 views of the abdomen/pelvis submitted for review. FINDINGS: Lines and Tubes: None. Free air: None. The bowel gas pattern is nonobstructive. There are no abnormal calcifications. However, evaluation of the renal shadows is limited due to overlying bowel gas. No portal venous air. Osseous structures do not demonstrate any acute abnormality. XR/XR abdomen min 2V IMPRESSION: 1. Nonobstructive bowel gas pattern. 2. Minimal retention of stool. Electronically authenticated by: MARIAH ROSE Date: 05/22/2024 22:19
--- NOTE | 2024-05-22 20:10 | ED.NAVMDI1 ---
HPI - Nausea/Vomiting/Diarrhea General Chief complaint: Nausea/Vomiting/Diarrhea Stated complaint: vomiting Time Seen by Provider: 05/22/24 20:00 Source: patient Mode of arrival: walk-in Limitations: no limitations History of Present Illness HPI Narrative: patient presents complaining of recurrent vomiting since yesterday. States he will experience these episodes at least 2 times a year. States he doesn't know what causes them. He does smoke marijuana. Nursing educated him about cyclic vomiting and marijuana and when I ask him what he thought was causing this he stated he had no idea no diarrhea or fever. no hematemsis MD elicited complaint: Reports nausea and vomiting Related Data Home Medications ?Medication ?Instructions ?Recorded ?Confirmed olanzapine 2.5 mg tablet 2.5 mg PO BEDTIME 07/16/23 05/22/24 fluoxetine 60 mg tablet 60 mg PO QPM 11/04/23 05/22/24 Allergies Allergy/AdvReac Type Severity Reaction Status Date / Time No Known Drug Allergies Allergy Verified 05/22/24 19:38 Review of Systems ROS Status of ROS 10 or more systems reviewed and unremarkable except as noted in history and below [facility] Medical History (Updated 05/23/24 @ 00:54 by Ranjit Palacios MD) Emphysema of lung ?J43.9 - Emphysema, unspecified (ICD-10) Cannabis hyperemesis syndrome concurrent with and due to cannabis abuse ?F12.188 - Cannabis abuse with other cannabis-induced disorder (ICD-10) Marijuana abuse, continuous ?F12.10 - Cannabis abuse, uncomplicated (ICD-10) Hyperbilirubinemia ?E80.6 - Other disorders of bilirubin metabolism (ICD-10) Elevated liver enzymes ?R74.8 - Abnormal levels of other serum enzymes (ICD-10) Abdominal pain ?R10.9 - Unspecified abdominal pain (ICD-10) Nausea and vomiting ?R11.2 - Nausea with vomiting, unspecified (ICD-10) Abdominal pain ?R10.9 - Unspecified abdominal pain (ICD-10) Pneumonia ?J18.9 - Pneumonia, unspecified organism (ICD-10) Benign essential HTN ?I10 - Essential (primary) hypertension (ICD-10) Anxiety ?F41.9 - Anxiety disorder, unspecified (ICD-10) Bipolar 1 disorder ?F31.9 - Bipolar disorder, unspecified (ICD-10) Family History (Updated 04/12/24 @ 04:58 by Kelsie Fitch RN) Father Family history of CHF (congestive heart failure) Family history of hypertension Family history of myocardial infarction Family history of stroke Grandfather Family history of cancer Family history of myocardial infarction Family history of stroke Uncle Family history of cancer Grandmother Family history of diabetes mellitus Social History Within the past year, how often did you have a drink containing alcohol: never Within the past year, how often did you have six or more drinks on one occasion: never Score interpretation: A score less than 4 is consistent with normal alcohol consumption. Smoking status: Current every day smoker Do you use any of these nicotine containing products: vaping products Non-prescribed substance use: cannabis (any form) Highest level of school completed/degree received: high school graduate Are you now , , , , never or living with a partner: In a typical week, how many times do you talk on the telephone with family, friends, or neighbors: 3 or more times per week How often do you get together with friends or relatives: 3 or more times per week How often do you attend adventism or jew services: never Little interest or pleasure in doing things: not at all Feeling down, depressed, or hopeless: several days Feel stressed/tense/nervous/anxious/difficulty sleeping: to some extent Do you think of yourself as: straight/heterosexual Gender Identity: male Exam Constitutional Vital Signs, click to edit/add: Last Vital Signs Temp 98.1 F 05/22/24 19:56 Pulse 79 05/23/24 00:33 Resp 16 05/23/24 00:33 BP 169/99 H 05/23/24 00:33 Pulse Ox 97 05/23/24 00:33 O2 Del Method Room Air 05/22/24 19:39 Common normals: no apparent distress, average body habitus, oriented x3, no limitations, healthy appearing, alert and well nourished [facility] Common normals: normocephalic and head/scalp atraumatic Eye Common normals: EOMs intact bilaterally and conjunctivae normal Respiratory Common normals: normal respiratory effort, no retractions, no use of accessory muscles and clear to auscultation bilaterally Cardio Common normals: regular rate, regular rhythm, S1 normal heart sound and S2 normal heart sound GI Common normals: Normal to inspection, nondistended, normoactive bowel sounds present, soft to palpation and non-tender Extremity Common normals: normal to inspection and full ROM Neuro Common normals: oriented x3, CN's II-XII intact bilaterally, moves all extremities and no focal motor deficits Psych Appearance: grossly normal Course Vital Signs Vital signs: Vital Signs Temperature 100.3 F 05/22/24 19:39 Pulse Rate 100 H 05/22/24 19:39 Respiratory Rate 20 05/22/24 19:39 Blood Pressure 210/190 H 05/22/24 19:39 Pulse Oximetry 100 05/22/24 19:39 Oxygen Delivery Method Room Air 05/22/24 19:39 Temperature 98.1 F 05/22/24 19:56 Pulse Rate 79 05/23/24 00:33 Respiratory Rate 16 05/23/24 00:33 Blood Pressure 169/99 H 05/23/24 00:33 Pulse Oximetry 97 05/23/24 00:33 Oxygen Delivery Method Room Air 05/22/24 19:39 MDM - Nausea/Vomiting/Diarrhea MDM Narrative Medical decision making narrative: patient presents clinically with cyclical vomiting. history of marijuana use but also history of intussusception. CT neg for intussusception. Patient treated with several antiemetics with some improvement but not enough to tolerate any po fluids. Discussed with the hospitalist including urine drug screen positive for benzo and marijuana and accepted for obs admission Lab Data Labs: Lab Results 05/22/24 05/22/24 05/22/24 Range/Units 19:44 19:53 22:50 WBC 15.1 H (4.0-11.0) 10^3/uL RBC 5.37 (4.70-6.10) 10^6/uL Hgb 16.2 (14.0-18.0) g/dL Hct 48.3 (42.0-54.0) % MCV 89.9 (80.0-94.0) fL MCH 30.2 (25.9-34.0) pg MCHC 33.5 (29.9-35.2) g/dL RDW 13.0 (11.0-15.0) % Plt Count 524 H (150-450) 10^3/uL MPV 10.6 (9.5-13.5) fL Neut % (Auto) 87.3 H (43.0-75.0) % Lymph % (Auto) 6.3 L (20.5-60.0) % Alexander % (Auto) 5.6 (1.7-12.0) % Eos % (Auto) 0.0 L (0.9-7.0) % Baso % (Auto) 0.3 (0.2-2.0) % Neut # (Auto) 13.2 H (1.4-6.5) 10^3/uL Lymph # (Auto) 1.0 L (1.2-3.8) 10^3/uL Alexander # (Auto) 0.9 H (0.3-0.8) 10^3/uL Eos # (Auto) 0.0 (0.0-0.7) 10^3/uL Baso # (Auto) 0.0 (0.0-0.1) 10^3/uL Abs Immat Gran (auto) 0.08 H (0.00-0.03) 10^3/uL Imm/Tot Granulo (auto) 0.5 (0.0-0.5) % Sodium 148 H (136-145) mmol/L Potassium 3.8 (3.5-5.1) mmol/L Chloride 107 (98-107) mmol/L Carbon Dioxide 20.0 L (21.0-32.0) mmol/L Anion Gap 24.8 BUN 32.0 H (7.0-18.0) mg/dL Creatinine 1.71 H (0.70-1.30) mg/dL Est GFR ( Amer) 53 L (>=60) Est GFR (Non-Af Amer) 44 L (>=60) BUN/Creatinine Ratio 18.7 Glucose 157 H (74-106) mg/dL Lactate 4.8 H* 2.2 H* (0.4-2.0) mmol/L Calcium 10.9 H (8.5-10.1) mg/dL Total Bilirubin 1.7 H (0.2-1.0) mg/dL AST 15 (15-37) U/L ALT 30 (16-63) U/L Alkaline Phosphatase 123 H (46-116) U/L Troponin I High Sens 18.6 (4.0-76.1) pg/mL Total Protein 9.8 H (6.4-8.2) g/dL Albumin 5.0 (3.4-5.0) g/dL Globulin 4.8 g/dL Albumin/Globulin Ratio 1.0 Lipase 17.0 (16.0-77.0) U/L Urine Color Dk. yellow (YELLOW) Urine Clarity Clear (CLEAR) Urine pH 6.5 (5.0-9.0) Ur Specific [place] 1.025 (1.005-1.025) Urine Protein 100 A (NEG/TRACE) mg/dL Urine Glucose (UA) Negative (NEGATIVE) mg/dL Urine Ketones 15 A (NEGATIVE) mg/dL Urine Occult Blood Negative (NEGATIVE) Urine Nitrite Negative (NEGATIVE) Urine Bilirubin Small A (NEGATIVE) Urine Urobilinogen 1.0 (0.2-1.0) EU/dL Ur Leukocyte Esterase Negative (NEGATIVE) Urine RBC 0-2 (0-2) #/HPF Urine WBC 2-5 A (NONE SEEN) #/HPF Ur Squamous Epith Cells None seen (NONE/RARE) #/LPF Urine Crystals None seen (None Seen) #/HPF Urine Bacteria Small A (NONE SEEN) #/HPF Urine Casts Seen A (NONE SEEN) #/LPF Hyaline Casts Moderate RBC Casts Rare WBC Casts Rare Urine Mucus Large A (NONE SEEN) Ur Culture Indicated? Yes Urine Opiates Screen Negative (NEGATIVE) Ur Buprenorphine Scrn Negative (NEGATIVE) Ur Oxycodone Screen Negative (NEGATIVE) Urine Methadone Screen Negative (NEGATIVE) Ur Barbiturates Screen Negative (NEGATIVE) U Tricyclic Antidepress Negative (NEGATIVE) Ur Phencyclidine Scrn Negative (NEGATIVE) Ur Amphetamines Screen Negative (NEGATIVE) U Methamphetamines Scrn Negative (NEGATIVE) U Benzodiazepines Scrn Positive A (NEGATIVE) Urine Cocaine Screen Negative (NEGATIVE) U Cannabinoids Screen Positive A (NEGATIVE) Imaging Data Abdominal x-ray: Radiologist's impression: ITS Impressions Abdomen X-Ray 05/22/24 20:09 IMPRESSION: 1. Nonobstructive bowel gas pattern. 2. Minimal retention of stool. Electronically authenticated by: MARIAH ROSE Date: 05/22/2024 22:19 Abdomen/Pelvis CT 05/22/24 22:09 IMPRESSION: No acute abnormality. Electronically authenticated by: ARLINE RATLIFF Date: 05/22/2024 23:48 Discharge Plan Discharge Chief Complaint: Nausea/Vomiting/Diarrhea Clinical Impression: Cyclical vomiting Prescriptions / Home Meds: No Action olanzapine 2.5 mg tablet 2.5 mg PO BEDTIME fluoxetine 60 mg tablet 60 mg PO QPM Print Language: Greenlandic Referrals: Yonathan Morales NP [Primary Care Provider] - 1 week
[2024-05-22 20:16] LABS: Basophils Percent Auto 0.3 % (0.2-2.0); Hematocrit 48.3 % (42.0-54.0); Hemoglobin 16.2 g/dL (14.0-18.0); Immature Granulocytes Abs Auto 0.08 10^3/uL (0.00-0.03); Immature Granulocytes Pct Auto 0.5 % (0.0-0.5); Lymphocytes Percent Auto 6.3 % (20.5-60.0); Mean Corpuscular HGB Conc 33.5 g/dL (29.9-35.2); Mean Corpuscular Hemoglobin 30.2 pg (25.9-34.0); Mean Corpuscular Volume 89.9 fL (80.0-94.0); Mean Platelet Volume 10.6 fL (9.5-13.5); Monocytes Absolute Auto 0.9 10^3/uL (0.3-0.8); Monocytes Percent Auto 5.6 % (1.7-12.0); Neutrophils Absolute Auto 13.2 10^3/uL (1.4-6.5); Neutrophils Percent Auto 87.3 % (43.0-75.0); Platelet Count 524 10^3/uL (150-450); Red Blood Count 5.37 10^6/uL (4.70-6.10); White Blood Count 15.1 10^3/uL (4.0-11.0)
[2024-05-22 20:20] LABS: Bilirubin Urine SMALL (NEGATIVE); Blood Urine NEGATIVE (NEGATIVE); Clarity Urine CLEAR (CLEAR); Color Urine DK. YELLOW (YELLOW); Glucose Urine UA NEGATIVE (NEGATIVE); Ketones Urine 15 mg/dL (NEGATIVE); Leukocyte Esterase Urine NEGATIVE (NEGATIVE); Nitrite Urine NEGATIVE (NEGATIVE); Protein Urine 100 mg/dL (NEG/TRACE); Specific Gravity Urine 1.025 (1.005-1.025); pH Urine 6.5 (5.0-9.0)
[2024-05-22 20:27] LABS: Urine Microscopic Indicated YES
[2024-05-22 20:29] LABS: Amphetamine Screen Urine NEGATIVE (NEGATIVE); Barbiturates Screen Urine NEGATIVE (NEGATIVE); Benzodiazepines Screen Urine POSITIVE (NEGATIVE); Cannabinoid Screen Urine POSITIVE (NEGATIVE); Cocaine Screen Urine NEGATIVE (NEGATIVE); Methadone Screen Urine NEGATIVE (NEGATIVE); Methamphetamines Screen Urine NEGATIVE (NEGATIVE); Opiate Screen Urine NEGATIVE (NEGATIVE); Oxycodone Screen Urine NEGATIVE (NEGATIVE); Phencyclidine Screen Urine NEGATIVE (NEGATIVE); Tricyclic Antidepressant Urine NEGATIVE (NEGATIVE)
[2024-05-22] MEDS: DIPHENHYDRAMINE HCL 50 MG/ML VIAL IV (20:29)
[2024-05-22] MEDS: METOCLOPRAMIDE HCL 10 MG/2 ML VIAL IVP ×2 (20:29→23:35)
[2024-05-22] MEDS: 0.9 % SODIUM CHLORIDE 1,000 ML 999 ML IV ×2 (20:29→21:44)
[2024-05-22 20:30] LABS: Buprenorphine Screen Urine NEGATIVE (NEGATIVE)
[2024-05-22 20:32] LABS: Bacteria Urine SMALL #/HPF (NONE SEEN); Crystals Seen? None Seen #/HPF (None Seen); Mucus Urine LARGE (NONE SEEN); RBC Urine 0-2 #/HPF (0-2); Squamous Epithelial Cell Urine NONE SEEN #/LPF (NONE/RARE)
[2024-05-22 20:33] LABS: Alanine Aminotransferase 30 U/L (16-63); Alkaline Phosphatase 123 U/L (46-116); Anion Gap 24.8; Aspartate Amino Transferase 15 U/L (15-37); BUN Creatinine Ratio 18.7; Bilirubin Total 1.7 mg/dL (0.2-1.0); Calcium 10.9 mg/dL (8.5-10.1); Chloride 107 mmol/L (98-107); Estimated GFR (African America 53 (>=60); Estimated GFR (Non-African Ame 44 (>=60); Globulin 4.8 g/dL; Glucose 157 mg/dL (74-106); Potassium 3.8 mmol/L (3.5-5.1); Sodium 148 mmol/L (136-145); Total Protein 9.8 g/dL (6.4-8.2); Troponin I High Sensitivity 18.6 pg/mL (4.0-76.1)
[2024-05-22 20:33] LABS: Cast Seen? SEEN #/LPF (NONE SEEN); Hyaline Casts Urine MODERATE; Red Blood Cell Casts Urine RARE; Urine Culture Indicated YES; White Blood Cell Casts Urine RARE
[2024-05-22 20:34] VITALS: BP 170/100; PULSE 79; O2SAT 99
[2024-05-22 20:42] LABS: Lactate/Lactic Acid 4.8 mmol/L (0.4-2.0)
[2024-05-22] MEDS: ONDANSETRON PF 4 MG/2 ML VIAL IV (21:44)
[2024-05-22 22:09] VITALS: BP 180/100; PULSE 80; O2SAT 99
--- NOTE | 2024-05-22 22:09 | CT_ITS ---
The [address] [address] Patient Name: GERALDINE RICCI MRN: [id number] date: 1980 Sex: M Assigned Patient Location: ER Current Patient Location: ER Accession/Order Number: [id number] Exam Date: 05/22/2024 22:58 Report Date: 05/22/2024 23:48 At the request of: ROBERTA CHIRINOS Procedure: CT abdomen pelvis w con EXAM: CT abdomen pelvis w con HISTORY: vomiting COMPARISON: 02/17/2024 TECHNIQUE: Axial CT imaging was performed through the abdomen and pelvis with intravenous contrast. Multiplanar reformats were performed. Dose reduction techniques were achieved by using automated exposure control and/or adjustment of mA and/or kV according to patient size and/or use of iterative reconstruction technique. FINDINGS: Lung bases: Lung bases are clear. No pleural effusion. GI upper: Unremarkable. Liver: Normal size and contour. Gallbladder: No significant abnormality. No cholelithiasis. Biliary system: No intra or extrahepatic biliary ductal dilatation. Spleen: Normal size. Pancreas: Unremarkable. Adrenal glands: Normal adrenal glands. Kidneys/ureters: Normal contours. No hydronephrosis. No nephrolithiasis or ureterolithiasis. Unchanged bilateral simple renal cysts measuring up to 1.1 cm. Vessels: No aneurysm. Lymph Nodes: No lymphadenopathy. Small bowel: No wall thickening or dilatation. Colon: No wall thickening or dilatation. Appendix: Appendix is identified with normal appearance. Peritoneal cavity: No free fluid or pneumoperitoneum. Lower : Unremarkable. Bones: No acute bony abnormality. Soft tissues: No acute finding. Additional findings: None. CT/CT abdomen pelvis w con IMPRESSION: No acute abnormality. Electronically authenticated by: ARLINE RATLIFF Date: 05/22/2024 23:48
[2024-05-22 23:21] LABS: Lactate/Lactic Acid 2.2 mmol/L (0.4-2.0)
[2024-05-23 00:33] VITALS: BP 169/99; PULSE 79; O2SAT 97
[2024-05-23 01:06] LABS: Salicylate <2.8 mg/dL (<=19.9)
[2024-05-23 01:07] LABS: Acetaminophen <2.0 ug/mL (10.0-30.0)
[2024-05-23 01:08] LABS: Ethanol <3 mg/dL
[2024-05-23 02:08] VITALS: BP 174/102; PULSE 73; O2SAT 96
[2024-05-23 02:24] VITALS: BP 182/91; PULSE 100; PULSE 78; TEMP 36.3; O2SAT 98; BMI 25.0
[2024-05-23] MEDS: OLANZapine 5 MG TABLET 2.5 MG PO (02:25)
[2024-05-23] MEDS: 0.9 % SODIUM CHLORIDE 1,000 ML 125 ML IV (02:25)
[2024-05-23] MEDS: ONDANSETRON PF 4 MG/2 ML VIAL IV (02:26)
--- OUTSIDE RECORDS SUMMARY | 2024-05-23 02:26 | XMS_ITS | CCD ---
Author Organization [facility] Care Team Providers Care Final Inspector Movement Assembly Name Role Phone RANJANA TRAYLOR Primary Care [...] Medication Allergies] Propensity to adverse reactions (disorder) [facility] Repository Medications Current Medications Medication Drug [...] 01-30-2023 HCV AB Non-Reactive Normal Non Reactive [facility] Comment on above: Performed By: #### L ACT #### [facility] [address] [address] [address] Etienne Fitch Interpretation: Comment Normal [facility] Comment on above: Result Comment: Not infected with HCV unless early or acute infection is suspected (which may be delayed in an immunocompromised individual), or other evidence exists to indicate HCV infection. Performed By: #### L ACT #### [facility] [address] [place], [place] [address] Dr. Etienne Fitch HIV 1 AND 2 WITH REFLEXon HIV Screen 4th Generation wRfx Non-Reactive Normal Non Reactive [facility] Comment on above: Result Comment: HIV Negative HIV-1/HIV-2 antibodies and HIV-1 p24 antigen were NOT detected. There is no laboratory evidence of HIV infection. Performed By: #### H IV12 #### [facility] [address] [address] [address] Etienne Fitch LIPID PROFILEon 01-29-2023 CHOL-HDL RATIO NORM SEE BELOW Normal [facility] Comment on above: Result Comment: 3.3 - 4.4 LOW RISK 4.4 - 7.1 AVERAGE RISK 7.1 - 11.0 MODERATE RISK >11.0 HIGH RISK Performed By: #### U MICRO, ERUR #### [facility] [address] [address] [address] Etienne Fitch Cholesterol [Mass/Vol] 196 mg/dL Normal <=200 [facility] Comment on above: Performed By: #### U MICRO, ERUR #### [facility] [address] [address] [address] Etienne Fitch Cholesterol in HDL [Mass/Vol] 78 mg/dL Critically high 40-60 [facility] Comment on above: Performed By: #### U MICRO, ERUR #### [facility] [address] [address] [address] Etienne Fitch Cholesterol in LDL [Mass/Vol] 106.6 mg/dL Normal [facility] Comment on above: Performed By: #### U MICRO, ERUR #### [facility] [address] [address] [address] Etienne Fitch Cholesterol.total /Cholesterol in HDL [Mass ratio] 2.5 {ratio} Normal [facility] Comment on above: Performed By: #### U MICRO, ERUR #### [facility] [address] [address] [address] Etienne Fitch HDL NORMAL > or = 60 mg/dl - LO W CARDIOVASCULAR RISK <40 mg/dl - HIGH CARDIOVASCULAR RISK Normal [facility] Comment on above: Performed By: #### U MICRO, ERUR #### [facility] [address] [address] [address] Etienne Fitch LDL CALC NORMAL SEE BELOW Normal [facility] Comment on above: Result Comment: <100 mg/dl OPTIMAL 100 - 129 mg/dl NEAR OR ABOVE OPTIMAL 130 - 159 mg/dl BORDERLINE HIGH 160 - 189 mg/dl HIGH >190 mg/dl VERY HIGH Performed By: #### U MICRO, ERUR #### [facility] [address] [address] [address] Etienne Fitch Triglyceride [Mass/Vol] 57 mg/dL Normal <=150 [facility] Comment on above: Performed By: #### U MICRO, ERUR #### [facility] [address] [address] [address] Etienne Fitch VLDL CALC 11.4 mg/dL Normal [facility] Comment on above: Performed By: #### U MICRO, ERUR #### [facility] [address] [place] [address] Dr. Etienne Fitch PROF CHEM 8 (BAS METB)on Anion gap [Moles/Vol] 7.4 mmol/L Normal [facility] Comment on above: Performed By: #### U MICRO, ERUR #### [facility] [address] [address] [address] Etienne Fitch Calcium [Mass/Vol] 10.0 mg/dL Normal 8.5-10.1 [facility] Comment on above: Performed By: #### U MICRO, ERUR #### [facility] [address] [address] [address] Etienne Fitch Chloride [Moles/Vol] 101 mmol/L Normal 98-107 [facility] Comment on above: Performed By: #### U MICRO, ERUR #### [facility] [address] [address] [address] Etienne Fitch CO2 [Moles/Vol] 34.0 mmol/L Critically high 21.0-32.0 [facility] Comment on above: Performed By: #### U MICRO, ERUR #### [facility] [address] [place] [address] Dr. Etienne Fitch Creatinine [Mass/Vol] 1.27 mg/dL Normal 0.70-1.30 [facility] Comment on above: Performed By: #### U MICRO, ERUR #### [facility] [address] [address] [address] Etienne Fitch EGFR-AF MONTENEGRIN >60 Normal >=60 [facility] Comment on above: Performed By: #### U MICRO, ERUR #### [facility] [address] [address] [address] Etienne Fitch EGFR-NON AF MONTENEGRIN >60 Normal >=60 [facility] Comment on above: Performed By: #### U MICRO, ERUR #### [facility] [address] [address] [address] Etienne Fitch Glucose [Mass/Vol] 116 mg/dL Critically high 74-106 [facility] Comment on above: Performed By: #### U MICRO, ERUR #### [facility] [address] [address] [address] Etienne Fitch Potassium [Moles/Vol] 4.4 mmol/L Normal 3.5-5.1 [facility] Comment on above: Performed By: #### U MICRO, ERUR #### [facility] [address] [address] [address] Etienne Fitch Sodium [Moles/Vol] 138 mmol/L Normal 136-145 [facility] Comment on above: Performed By: #### U MICRO, ERUR #### [facility] [address] [address] [address] Etienne Fitch Urea nitrogen [Mass/Vol] 33.0 mg/dL Critically high 7.0-18.0 [facility] Comment on above: Performed By: #### U MICRO, ERUR #### [facility] [address] [address] [address] Etienne Fitch Urea nitrogen/Creatini ne [Mass ratio] 26.0 mg/mg Normal [facility] Comment on above: Performed By: #### U MICRO, ERUR #### [facility] [address] [address] [address] Etienne Fitch CBC AUTO DIFFon 12-12-2022 BASO # 0.0 103/ul Normal 0.0-0.1 [facility] Comment on above: Performed By: #### C BC #### [facility] [address] [address] [address] Etienne Fitch Basophils/100 WBC (Bld) 0.2 % Normal 0.2-2.0 [facility] Comment on above: Performed By: #### C BC #### [facility] [address] [address] [address] Etienne Fitch EO # 0.0 103/ul Normal 0.0-0.7 [facility] Comment on above: Performed By: #### C BC #### [facility] [address] [place] [address] Dr. Etienne Fitch Eosinophils/100 WBC (Bld) 0.1 % Critically low 0.9-7.0 [facility] Comment on above: Performed By: #### C BC #### [facility] [address] [place] [address] Dr. Etienne Fitch Erythrocyte distribution width (RBC) [Ratio] 12.8 % Normal 11.0-15.0 [facility] Comment on above: Performed By: #### C BC #### [facility] [address] [place] [address] Dr. Etienne Fitch Hematocrit (Bld) [Volume fraction] 55.0 % Critically high 42.0-54.0 [facility] Comment on above: Performed By: #### C BC #### [facility] [address] [place] [address] Dr. Etienne Fitch Hemoglobin (Bld) [Mass/Vol] 18.5 g/dL Critically high 14.0-18.0 [facility] Comment on above: Performed By: #### C BC #### [facility] [address] [place] [address] Dr. Etienne Fitch IG # 0.07 10e3/ul Critically high 0.00-0.03 [facility] Comment on above: Performed By: #### C BC #### [facility] [address] [place] [address] Dr. Etienne Fitch IG % 0.5 % Normal 0.0-0.5 [facility] Comment on above: Performed By: #### C BC #### [facility] [address] [place] [address] Dr. Etienne Fitch LYMPH # 1.4 103/ul Normal 1.2-3.8 [facility] Comment on above: Performed By: #### C BC #### [facility] [address] [place] [address] Dr. Etienne Fitch Lymphocytes/100 WBC (Bld) 10.1 % Critically low 20.5-60.0 [facility] Comment on above: Performed By: #### C BC #### [facility] [address] [place] [address] Dr. Etienne Fitch MANUAL DIFF REQ NO Normal [facility] Comment on above: Performed By: #### C BC #### [facility] [address] [place] [address] Dr. Etienne Fitch MCH (RBC) [Entitic mass] 29.6 pg Normal 25.9-34.0 [facility] Comment on above: Performed By: #### C BC #### [facility] [address] [place] [address] Dr. Etienne Fitch MCHC (RBC) [Mass/Vol] 33.6 g/dL Normal 29.9-35.2 [facility] Comment on above: Performed By: #### C BC #### [facility] [address] [place] [address] Dr. Etienne Fitch MCV (RBC) [Entitic vol] 87.9 fL Normal 80.0-94.0 [facility] Comment on above: Performed By: #### C BC #### [facility] [address] [place] [address] Dr. Etienne Fitch MONO # 1.5 103/ul Critically high 0.3-0.8 [facility] Comment on above: Performed By: #### C BC #### [facility] [address] [place] [address] Dr. Etienne Fitch Monocytes/100 WBC (Bld) 11.3 % Normal 1.7-12.0 [facility] Comment on above: Performed By: #### C BC #### [facility] [address] [address] [address] Etienne Fitch NEUT # 10.6 103/ul Critically high 1.4-6.5 [facility] Comment on above: Performed By: #### C BC #### [facility] [address] [place] [address] Dr. Etienne Fitch Neutrophils/100 WBC (Bld) 77.8 % Critically high 43.0-75.0 [facility] Comment on above: Performed By: #### C BC #### [facility] [address] [place] [address] Dr. Etienne Fitch Platelet mean volume (Bld) [Entitic vol] 11.1 fL Normal 9.5-13.5 [facility] Comment on above: Performed By: #### C BC #### [facility] [address] [place] [address] Dr. Etienne Fitch PLT 371 103/ul Normal 150-450 [facility] Comment on above: Performed By: #### C BC #### [facility] [address] [place] [address] Dr. Etienne Fitch RBC 6.26 106/ul Critically high 4.70-6.10 [facility] Comment on above: Performed By: #### C BC #### [facility] [address] [place] [address] Dr. Etienne Fitch WBC 13.6 103/ul Critically high 4.0-11.0 [facility] Comment on above: Performed By: #### C BC #### [facility] [address] [place] [address] Dr. Etienne Fitch Covid-19 PCR ([facility])on 11-27 SARS-CoV-2 (COVID-19) RNA KWABENA+probe Ql (Unsp spec) Not detected Normal NOT DETECTED [facility] Comment on above: Result Comment: When diagnostic [...] for this test is supported by the [place] of Health and Human Service's declaration that [...] Performed By: #### U MICRO, ERUR #### [facility] [address] [place] [address] Dr. Etienne Fitch ER URINE PROFILEon 3 Bilirubin Ql (U) Negative Normal NEGATIVE [facility] Comment on above: Performed By: #### U MICRO, ERUR #### [facility] [address] [place] [address] Dr. Etienne Fitch Clarity (U) CLEAR Normal CLEAR [facility] Comment on above: Performed By: #### U MICRO, ERUR #### [facility] [address] [place] [address] Dr. Etienne Fitch Color (U) LT. YELLOW Normal YELLOW [facility] Comment on above: Performed By: #### U MICRO, ERUR #### [facility] [address] [place] [address] Dr. Etienne Fitch ERUAHD A micrscopic examina tion will be performed if indicated. Normal [facility] Comment on above: Performed By: #### U MICRO, ERUR #### [facility] [address] [place] [address] Dr. Etienne Fitch Glucose Ql (U) Negative Normal NEGATIVE [facility] Comment on above: Performed By: #### U MICRO, ERUR #### [facility] [address] [place] [address] Dr. Etienne Fitch Hemoglobin Ql (U) Negative Normal NEGATIVE [facility] Comment on above: Performed By: #### U MICRO, ERUR #### [facility] [address] [address] [address] Etienne Fitch Ketones Ql (U) Negative Normal NEGATIVE [facility] Comment on above: Performed By: #### U MICRO, ERUR #### [facility] [address] [place] [address] Dr. Etienne Fitch LEUKOCYTES Negative Normal NEGATIVE [facility] Comment on above: Performed By: #### U MICRO, ERUR #### [facility] [address] [address] [address] Etienne Fitch Nitrite Ql (U) Negative Normal NEGATIVE [facility] Comment on above: Performed By: #### U MICRO, ERUR #### [facility] [address] [place] [address] Dr. Etienne Fitch pH (U) 6.0 [pH] Normal 5-9 [facility] Comment on above: Performed By: #### U MICRO, ERUR #### [facility] [address] [place] [address] Dr. Etienne Fitch SPEC GRAVITY 1.015 Normal 1.005-<=1.[address] [facility] Comment on above: Performed By: #### U MICRO, ERUR #### [facility] [address] [place] [address] Dr. Etienne Fitch UA PROTEIN Negative Normal NEGATIVE/ TRACE [facility] Comment on above: Performed By: #### U MICRO, ERUR #### [facility] [address] [place] [address] Dr. Etienne Fitch UR MICRO IND NOT INDICATED Normal [facility] Comment on above: Performed By: #### U MICRO, ERUR #### [facility] [address] [place] [address] Dr. Etienne Fitch Urobilinogen Qn (U) 0.2 {Nesha'U}/dL Normal 0.2 - 1.0 [facility] Comment on above: Performed By: #### U MICRO, ERUR #### [facility] [address] [place] [address] Dr. Etienne Fitch INFLUENZA A AND B AGon 12-12 INFLUANEGH SEE BELOW Normal [facility] Comment on above: Result Comment: Nega tive for Flu A protein angiten. Infection due to Flu A cannot be ruled out. Flu A angiten in the sample may be below the detection limit of the test. Performed By: #### I NFLUAB #### [facility] [address] [place] [address] Dr. Etienne Fitch [facility] SEE BELOW Normal [facility] Comment on above: Result Comment: Nega tive for Flu B protein antigen. Infection due to Flu B cannot be ruled out. Flu B antigen in the sample may be below the detection limit of the test. Performed By: #### I NFLUAB #### [facility] [address] [place] [address] Dr. Etienne Fitch INFLUENZA A AG Negative Normal NEGATIVE SEE COMMENT [facility] Comment on above: Performed By: #### I NFLUAB #### [facility] [address] [place] [address] Dr. Etienne Fitch INFLUENZA B AG Negative Normal NEGATIVE SEE COMMENT [facility] Comment on above: Performed By: #### I NFLUAB #### [facility] [address] [place] [address] Dr. Etienne Fitch PROF 14(COMP METB)on 023 Albumin [Mass/Vol] 4.4 g/dL Normal 3.4-5.0 [facility] Comment on above: Performed By: #### U MICRO, ERUR #### [facility] [address] [place] [address] Dr. Etienne Fitch Albumin/Globulin [Mass ratio] 1.0 {ratio} Normal [facility] Comment on above: Performed By: #### U MICRO, ERUR #### [facility] [address] [place] [address] Dr. Etienne Fitch ALP [Catalytic activity/Vol] 107 U/L Normal 46-116 [facility] Comment on above: Performed By: #### U MICRO, ERUR #### [facility] [address] [place] [address] Dr. Etienne Fitch ALT [Catalytic activity/Vol] 23 U/L Normal 16-63 [facility] Comment on above: Performed By: #### U MICRO, ERUR #### [facility] [address] [address] [address] Etienne Fitch Anion gap [Moles/Vol] 19.1 mmol/L Normal [facility] Comment on above: Performed By: #### U MICRO, ERUR #### [facility] [address] [address] [address] Etienne Fitch AST [Catalytic activity/Vol] 24 U/L Normal 15-37 [facility] Comment on above: Performed By: #### U MICRO, ERUR #### [facility] [address] [address] [address] Etienne Fitch Bilirubin [Mass/Vol] 2.2 mg/dL Critically high 0.2-1.0 [facility] Comment on above: Performed By: #### U MICRO, ERUR #### [facility] [address] [address] [address] Etienne Fitch Calcium [Mass/Vol] 9.5 mg/dL Normal 8.5-10.1 [facility] Comment on above: Performed By: #### U MICRO, ERUR #### [facility] [address] [address] [address] Etienne Fitch Chloride [Moles/Vol] 102 mmol/L Normal 98-107 [facility] Comment on above: Performed By: #### U MICRO, ERUR #### [facility] [address] [address] [address] Etienne Fitch CO2 [Moles/Vol] 26.5 mmol/L Normal 21.0-32.0 [facility] Comment on above: Performed By: #### U MICRO, ERUR #### [facility] [address] [address] [address] Etienne Fitch Creatinine [Mass/Vol] 2.27 mg/dL Critically high 0.70-1.30 [facility] Comment on above: Performed By: #### U MICRO, ERUR #### [facility] [address] [address] [address] Etienne Fitch EGFR-AF MONTENEGRIN 38 mL/min/1.73m2 Critically low >=60 [facility] Comment on above: Performed By: #### U MICRO, ERUR #### [facility] [address] [address] [address] Etienne Fitch EGFR-NON AF MONTENEGRIN 32 mL/min/1.73m2 Critically low >=60 [facility] Comment on above: Performed By: #### U MICRO, ERUR #### [facility] [address] [address] [address] Etienne Fitch Globulin (S) [Mass/Vol] 4.4 g/dL Normal [facility] Comment on above: Performed By: #### U MICRO, ERUR #### [facility] [address] [place] [address] Dr. Etienne Fitch Glucose [Mass/Vol] 136 mg/dL Critically high 74-106 [facility] Comment on above: Performed By: #### U MICRO, ERUR #### [facility] [address] [address] [address] Etienne Fitch Potassium [Moles/Vol] 4.6 mmol/L Normal 3.5-5.1 [facility] Comment on above: Performed By: #### U MICRO, ERUR #### [facility] [address] [place] [address] Dr. Etienne Fitch Protein [Mass/Vol] 8.8 g/dL Critically high 6.4-8.2 [facility] Comment on above: Performed By: #### U MICRO, ERUR #### [facility] [address] [address] [address] Etienne Fitch Sodium [Moles/Vol] 143 mmol/L Normal 136-145 [facility] Comment on above: Performed By: #### U MICRO, ERUR #### [facility] [address] [place] [address] Dr. Etienne Fitch Urea nitrogen [Mass/Vol] 89.0 mg/dL Critically high 7.0-18.0 [facility] Comment on above: Performed By: #### U MICRO, ERUR #### [facility] [address] [place] [address] Dr. Etienne Fitch Urea nitrogen/Creatini ne [Mass ratio] 42.0 mg/mg Normal [facility] Comment on above: Performed By: #### U MICRO, ERUR #### [facility] [address] [address] [address] Etienne Fitch PROF CHEM 8 (BAS METB)on Anion gap [Moles/Vol] 12.4 mmol/L Normal [facility] Comment on above: Performed By: #### U MICRO, ERUR #### [facility] [address] [address] [address] Etienne Fitch Calcium [Mass/Vol] 8.9 mg/dL Normal 8.5-10.1 [facility] Comment on above: Performed By: #### U MICRO, ERUR #### [facility] [address] [place] [address] Dr. Etienne Fitch Chloride [Moles/Vol] 110 mmol/L Critically high 98-107 [facility] Comment on above: Performed By: #### U MICRO, ERUR #### [facility] [address] [address] [address] Etienne Fitch CO2 [Moles/Vol] 29.6 mmol/L Normal 21.0-32.0 [facility] Comment on above: Performed By: #### U MICRO, ERUR #### [facility] [address] [place] [address] Dr. Etienne Fitch Creatinine [Mass/Vol] 2.04 mg/dL Critically high 0.70-1.30 [facility] Comment on above: Performed By: #### U MICRO, ERUR #### [facility] [address] [address] [address] Etienne Fitch EGFR-AF MONTENEGRIN 43 mL/min/1.73m2 Critically low >=60 [facility] Comment on above: Performed By: #### U MICRO, ERUR #### [facility] [address] [address] [address] Etienne Fitch EGFR-NON AF MONTENEGRIN 36 mL/min/1.73m2 Critically low >=60 [facility] Comment on above: Performed By: #### U MICRO, ERUR #### [facility] [address] [address] [address] Etienne Fitch Glucose [Mass/Vol] 112 mg/dL Critically high 74-106 [facility] Comment on above: Performed By: #### U MICRO, ERUR #### [facility] [address] [address] [address] Etienne Fitch Potassium [Moles/Vol] 5.0 mmol/L Normal 3.5-5.1 [facility] Comment on above: Performed By: #### U MICRO, ERUR #### [facility] [address] [address] [address] Etienne Fitch Sodium [Moles/Vol] 147 mmol/L Critically high 136-145 [facility] Comment on above: Performed By: #### U MICRO, ERUR #### [facility] [address] [address] [address] Etienne Fitch Urea nitrogen [Mass/Vol] 79.0 mg/dL Critically high 7.0-18.0 [facility] Comment on above: Performed By: #### U MICRO, ERUR #### [facility] [address] [address] [address] Etienne Fitch Urea nitrogen/Creatini ne [Mass ratio] 38.7 mg/mg Normal [facility] Comment on above: Performed By: #### U MICRO, ERUR #### [facility] [address] [address] [address] Etienne Fitch Ambulatory Visit Summaryon 1 [...] & vomiting RLQ abdominal pain Normal [facility] General Surgery [...] Father. Heart disease: Mother. TIA: Mother. Normal [facility] Comment on above: Result Comment: Elec tronically Signed By: SAMIR MOCK, Anupam Thompson\Date and Time Signed: 08/07/22 13:24 EDT Reminderson 08-07-2022 Reminders - From: Harika Simmons LPN To: N - Clinical; Sent: 08/07/2022 13:07:35 EDT Show up: 06/23/2032 07:00:00 EDT Subject: colonoscopy recall Due Date/Time: 07/24/2032 07:00:00 EDT Reminder/Recall Patient is due for screening colonoscopy 07/24/2032. Normal [facility] Pathology Noteon 07-29-2022 Pathology Note [id number]#1.00CD:127 Normal [facility] Outside Colonoscopyon 2021 Outside Colonoscopy [id number]#1.00CD:127 Normal [facility] RAD - MRI Reporton RAD - MRI Report [id number]#1.00CD:127 Normal [facility] Lab Reportson 07-22-2022 Lab Reports [id number]#1.00CD:127 Normal [facility] RAD - MRI Reporton RAD - MRI Report [id number]#1.00CD:127 Normal [facility]-19 [facility] ([facility]on 06-28 SARS-CoV-2 (COVID-19) RNA KWABENA+probe Ql (Unsp spec) Not detected Normal NOT DETECTED [facility] Company Comment on above: Result Comment: This test is not yet approved or cleared by the [place] FDA. When there are no FDA-approved or cleared tests available, and other criteria are met, FDA can make tests available under an emergency access mechanism called an Emergency Use Authorization (EUA). The EUA for this test is supported by the [place] of Health and Human Service's (HHS's) declaration [...] consistent with SARS-CoV-2. Performed By: #### [facility] #### [facility] [address] [place] [address] Dr. Etienne Fitch MRI ABDOMEN WO CONon [...] by: ALEXA HOWARD Date: 2022-07-19 07:[address] [facility] Consent for Procedure/Surger yon 07-04-2022 Consent for Procedure/Surgery [id number]#[id number]:127 Normal [facility] Ambulatory Visit Summaryon 0 07-02-2022 Ambulatory [...] Nausea & vomiting RLQ abdominal pain Normal [facility] ED Note-Physicianon 07-02-20 ED Note-Physician [id number]#[id number]:127 Normal [facility] RAD - MISCon 06-27-2022 RAD - MISC [id number]#[id number]:127 Normal [facility] AMYLASEon 06-15-2022 Amylase [Catalytic activity/Vol] 47 U/L Normal 25-115 [facility] Comment on above: Performed By: #### L ACT #### [facility] [address] [place] [address] Dr. Etienne Fitch CBC AUTO DIFFon 06-15-2022 BASO # 0.1 103/ul Normal 0.0-0.1 [facility] Comment on above: Performed By: #### U MICRO, ERUR #### [facility] [address] [place] [address] Dr. Etienne Fitch Basophils/100 WBC (Bld) 0.5 % Normal 0.2-2.0 [facility] Comment on above: Performed By: #### U MICRO, ERUR #### [facility] [address] [place] [address] Dr. Etienne Fitch EO # 0.0 103/ul Normal 0.0-0.7 [facility] Comment on above: Performed By: #### U MICRO, ERUR #### [facility] [address] [place] [address] Dr. Etienne Fitch Eosinophils/100 WBC (Bld) 0.1 % Critically low 0.9-7.0 [facility] Comment on above: Performed By: #### U MICRO, ERUR #### [facility] [address] [place] [address] Dr. Etienne Fitch Erythrocyte distribution width (RBC) [Ratio] 11.9 % Normal 11.0-15.0 [facility] Comment on above: Performed By: #### U MICRO, ERUR #### [facility] [address] [place] [address] Dr. Etienne Fitch Hematocrit (Bld) [Volume fraction] 48.4 % Normal 42.0-54.0 [facility] Comment on above: Performed By: #### U MICRO, ERUR #### [facility] [address] [place] [address] Dr. Etienne Fitch Hemoglobin (Bld) [Mass/Vol] 16.6 g/dL Normal 14.0-18.0 [facility] Comment on above: Performed By: #### U MICRO, ERUR #### [facility] [address] [place] [address] Dr. Etienne Fitch IG # 0.06 10e3/ul Critically high 0.00-0.03 [facility] Comment on above: Performed By: #### U MICRO, ERUR #### [facility] [address] [place] [address] Dr. Etienne Fitch IG % 0.4 % Normal 0.0-0.5 [facility] Comment on above: Performed By: #### U MICRO, ERUR #### [facility] [address] [place] [address] Dr. Etienne Fitch LYMPH # 0.8 103/ul Critically low 1.2-3.8 [facility] Comment on above: Performed By: #### U MICRO, ERUR #### [facility] [address] [place] [address] Dr. Etienne Fitch Lymphocytes/100 WBC (Bld) 5.0 % Critically low 20.5-60.0 [facility] Comment on above: Performed By: #### U MICRO, ERUR #### [facility] [address] [place] [address] Dr. Etienne Fitch MANUAL DIFF REQ NO Normal [facility] Comment on above: Performed By: #### U MICRO, ERUR #### [facility] [address] [place] [address] Dr. Etienne Fitch MCH (RBC) [Entitic mass] 30.9 pg Normal 25.9-34.0 [facility] Comment on above: Performed By: #### U MICRO, ERUR #### [facility] [address] [place] [address] Dr. Etienne Fitch MCHC (RBC) [Mass/Vol] 34.3 g/dL Normal 29.9-35.2 [facility] Comment on above: Performed By: #### U MICRO, ERUR #### [facility] [address] [place] [address] Dr. Etienne Fitch MCV (RBC) [Entitic vol] 90.1 fL Normal 80.0-94.0 [facility] Comment on above: Performed By: #### U MICRO, ERUR #### [facility] [address] [address] [address] Etienne Fitch MONO # 0.8 103/ul Normal 0.3-0.8 [facility] Comment on above: Performed By: #### U MICRO, ERUR #### [facility] [address] [place] [address] Dr. Etienne Fitch Monocytes/100 WBC (Bld) 5.3 % Normal 1.7-12.0 [facility] Comment on above: Performed By: #### U MICRO, ERUR #### [facility] [address] [place] [address] Dr. Etienne Fitch NEUT # 13.9 103/ul Critically high 1.4-6.5 [facility] Comment on above: Performed By: #### U MICRO, ERUR #### [facility] [address] [place] [address] Dr. Etienne Fitch Neutrophils/100 WBC (Bld) 88.7 % Critically high 43.0-75.0 [facility] Comment on above: Performed By: #### U MICRO, ERUR #### [facility] [address] [place] [address] Dr. Etienne Fitch Platelet mean volume (Bld) [Entitic vol] 10.9 fL Normal 9.5-13.5 [facility] Comment on above: Performed By: #### U MICRO, ERUR #### [facility] [address] [place] [address] Dr. Etienne Fitch PLT 424 103/ul Normal 150-450 [facility] Comment on above: Performed By: #### U MICRO, ERUR #### [facility] [address] [place] [address] Dr. Etienne Fitch RBC 5.37 106/ul Normal 4.70-6.10 [facility] Comment on above: Performed By: #### U MICRO, ERUR #### [facility] [address] [place] [address] Dr. Etienne Fitch WBC 15.7 103/ul Critically high 4.0-11.0 [facility] Comment on above: Performed By: #### U MICRO, ERUR #### [facility] [address] [address] [address] Etienne Fitch DRUG SCREEN RAPID (URINE)on 06-15-2022 AMP Negative Normal NEGATIVE [facility] Comment on above: Performed By: #### D RUGRPD #### [facility] [address] [place] [address] Dr. Etienne Fitch BAR Negative Normal NEGATIVE [facility] Comment on above: Performed By: #### D RUGRPD #### [facility] [address] [address] [address] Etienne Fitch BUP Negative Normal NEGATIVE [facility] Comment on above: Performed By: #### D RUGRPD #### [facility] [address] [place] [address] Dr. Etienne Fitch BZO Negative Normal NEGATIVE [facility] Comment on above: Performed By: #### D RUGRPD #### [facility] [address] [place] [address] Dr. Etienne Fitch MILTON Negative Normal NEGATIVE [facility] Comment on above: Performed By: #### D RUGRPD #### [facility] [address] [place] [address] Dr. Etienne Fitch CUT-OFFS SEE BELOW Normal [facility] Comment on above: Result Comment: AMP (Amphetamine): 500ng/mL, BAR (Barbituates): 200 ng/mL, BZO (Benzodiazepines): 150 ng/mL, BUP (Buprenorphine): 10 ng/mL, MILTON (Cocaine): 150 ng/mL, mAMP (Methamphetamine): 500 ng/mL, MTD (Methadone): 200 ng/mL, OPI (Opiates): 100 ng/mL, OXY (Oxycodone): 100 ng/mL, PCP (Phencyclidine): 25 ng/mL, PPX (Propoxyphene): 300 ng/mL, THC (Cannabinoids): 50 ng/mL, TCA (Trycyclic Antidepressants): 300 ng/mL Performed By: #### D RUGRPD #### [facility] [address] [place] [address] Dr. Etienne Fitch DRUG CUT HEADER DRUG CLASS TEST SYST EM CUT-OFF CONCENTRATIONS ARE FOLLOWS: Normal [facility] Comment on above: Performed By: #### D RUGRPD #### [facility] [address] [address] [address] Etienne Fitch mAMP Negative Normal NEGATIVE [facility] Comment on above: Performed By: #### D RUGRPD #### [facility] [address] [address] [address] Etienne Fitch MTD Negative Normal NEGATIVE [facility] Comment on above: Performed By: #### D RUGRPD #### [facility] [address] [place] [address] Dr. Etienne Fitch OPI Negative Normal NEGATIVE [facility] Comment on above: Performed By: #### D RUGRPD #### [facility] [address] [place] [address] Dr. Etienne Fitch OXY Negative Normal NEGATIVE [facility] Comment on above: Performed By: #### D RUGRPD #### [facility] [address] [place] [address] Dr. Etienne Fitch PCP Negative Normal NEGATIVE [facility] Comment on above: Performed By: #### D RUGRPD #### [facility] [address] [place] [address] Dr. Etienne Fitch PPX Negative Normal NEGATIVE [facility] Comment on above: Performed By: #### D RUGRPD #### [facility] [address] [place] [address] Dr. Etienne Fitch TCA Negative Normal NEGATIVE [facility] Comment on above: Performed By: #### D RUGRPD #### [facility] [address] [place] [address] Dr. Etienne Fitch THC Positive Abnormal NEGATIVE [facility] Comment on above: Performed By: #### D RUGRPD #### [facility] [address] [place] [address] Dr. Etienne Fitch ER URINE PROFILEon 2 Bilirubin Ql (U) MODERATE Abnormal NEGATIVE [facility] Comment on above: Performed By: #### U MICRO, ERUR #### [facility] [address] [place] [address] Dr. Etienne Fitch Clarity (U) CLEAR Normal CLEAR [facility] Comment on above: Performed By: #### U MICRO, ERUR #### [facility] [address] [address] [address] Etienne Fitch Color (U) DK. ORANGE Abnormal YELLOW [facility] Comment on above: Performed By: #### U MICRO, ERUR #### [facility] [address] [place] [address] Dr. Etienne Fitch ERUAHD A micrscopic examina tion will be performed if indicated. Normal [facility] Comment on above: Performed By: #### U MICRO, ERUR #### [facility] [address] [place] [address] Dr. Etienne Fitch Glucose Ql (U) Negative Normal NEGATIVE [facility] Comment on above: Performed By: #### U MICRO, ERUR #### [facility] [address] [place] [address] Dr. Etienne Fitch Hemoglobin Ql (U) Negative Normal NEGATIVE [facility] Comment on above: Performed By: #### U MICRO, ERUR #### [facility] [address] [place] [address] Dr. Etienne Fitch Ketones Ql (U) 40 mg/dl Abnormal NEGATIVE [facility] Comment on above: Performed By: #### U MICRO, ERUR #### [facility] [address] [place] [address] Dr. Etienne Fitch LEUKOCYTES Negative Normal NEGATIVE [facility] Comment on above: Performed By: #### U MICRO, ERUR #### [facility] [address] [address] [address] Etienne Fitch Nitrite Ql (U) Negative Normal NEGATIVE [facility] Comment on above: Performed By: #### U MICRO, ERUR #### [facility] [address] [place] [address] Dr. Etienne Fitch pH (U) 6.0 [pH] Normal 5-9 [facility] Comment on above: Performed By: #### U MICRO, ERUR #### [facility] [address] [place] [address] Dr. Etienne Fitch Protein (U) [Mass/Vol] 100 mg/dL Abnormal NEGATIVE/ TRACE [facility] Comment on above: Performed By: #### U MICRO, ERUR #### [facility] [address] [place] [address] Dr. Etienne Fitch SPEC GRAVITY >=1.030 Abnormal 1.005-<=1.02 5 [facility] Comment on above: Performed By: #### U MICRO, ERUR #### [facility] [address] [place] [address] Dr. Etienne Fitch UR MICRO IND INDICATED Normal [facility] Comment on above: Performed By: #### U MICRO, ERUR #### [facility] [address] [place] [address] Dr. Etienne Fitch Urobilinogen Qn (U) 1.0 {Nesha'U}/dL Normal 0.2 - 1.0 [facility] Comment on above: Performed By: #### U MICRO, ERUR #### [facility] [address] [place] [address] Dr. Etienne Fitch ETHANOL (BLD ALC)on 06-15-20 ALC NOTE NOTE: 80 mg/dl is th e legal limit for a blood alcohol level Normal [facility] Comment on above: Performed By: #### E TH #### [facility] [address] [place] [address] Dr. Etienne Fitch Ethanol [Mass/Vol] mg/dL Normal [facility] Comment on above: Performed By: #### E TH #### [facility] [address] [place] [address] Dr. Etienne Fitch LIPASEon 06-15-2022 Lipase [Catalytic activity/Vol] 32.0 U/L Critically low 73.0-393.0 [facility] Comment on above: Performed By: #### L ACT #### [facility] [address] [place] [address] Dr. Etienne Fitch PROF 14(COMP METB)on Albumin [Mass/Vol] 5.4 g/dL Critically high 3.4-5.0 [facility] Comment on above: Performed By: #### L ACT #### [facility] [address] [place] [address] Dr. Etienne Fitch Albumin/Globulin [Mass ratio] 1.4 {ratio} Normal [facility] Comment on above: Performed By: #### L ACT #### [facility] [address] [address] [address] Etienne Fitch ALP [Catalytic activity/Vol] 93 U/L Normal 46-116 [facility] Comment on above: Performed By: #### L ACT #### [facility] [address] [place] [address] Dr. Etienne Fitch ALT [Catalytic activity/Vol] 19 U/L Normal 16-63 [facility] Comment on above: Performed By: #### L ACT #### [facility] [address] [place] [address] Dr. Etienne Fitch Anion gap [Moles/Vol] 18.2 mmol/L Normal [facility] Comment on above: Performed By: #### L ACT #### [facility] [address] [place] [address] Dr. Etienne Fitch AST [Catalytic activity/Vol] 23 U/L Normal 15-37 [facility] Comment on above: Performed By: #### L ACT #### [facility] [address] [place] [address] Dr. Etienne Fitch Bilirubin [Mass/Vol] 3.0 mg/dL Critically high 0.2-1.0 [facility] Comment on above: Performed By: #### L ACT #### [facility] [address] [place] [address] Dr. Etienne Fitch Calcium [Mass/Vol] 11.2 mg/dL Critically high 8.5-10.1 [facility] Comment on above: Performed By: #### L ACT #### [facility] [address] [place] [address] Dr. Etienne Fitch Chloride [Moles/Vol] 102 mmol/L Normal 98-107 [facility] Comment on above: Performed By: #### L ACT #### [facility] [address] [place] [address] Dr. Etienne Fitch CO2 [Moles/Vol] 27.0 mmol/L Normal 21.0-32.0 [facility] Comment on above: Performed By: #### L ACT #### [facility] [address] [address] [address] Etienne Fitch Creatinine [Mass/Vol] 1.49 mg/dL Critically high 0.70-1.30 [facility] Comment on above: Performed By: #### L ACT #### [facility] [address] [address] [address] Etienne Fitch EGFR-AF MONTENEGRIN >60 Normal >=60 [facility] Comment on above: Performed By: #### L ACT #### [facility] [address] [address] [address] Etienne Fitch EGFR-NON AF MONTENEGRIN 51 mL/min/1.73m2 Critically low >=60 [facility] Comment on above: Performed By: #### L ACT #### [facility] [address] [place] [address] Dr. Etienne Fitch Globulin (S) [Mass/Vol] 4.0 g/dL Normal [facility] Comment on above: Performed By: #### L ACT #### [facility] [address] [place] [address] Dr. Etienne Fitch Glucose [Mass/Vol] 183 mg/dL Critically high 74-106 [facility] Comment on above: Performed By: #### L ACT #### [facility] [address] [place] [address] Dr. Etienne Fitch Potassium [Moles/Vol] 4.2 mmol/L Normal 3.5-5.1 [facility] Comment on above: Performed By: #### L ACT #### [facility] [address] [address] [address] Etienne Fitch Protein [Mass/Vol] 9.4 g/dL Critically high 6.4-8.2 [facility] Comment on above: Performed By: #### L ACT #### [facility] [address] [address] [address] Etienne Fitch Sodium [Moles/Vol] 143 mmol/L Normal 136-145 [facility] Comment on above: Performed By: #### L ACT #### [facility] [address] [place] [address] Dr. Etienne Fitch Urea nitrogen [Mass/Vol] 19.0 mg/dL Critically high 7.0-18.0 [facility] Comment on above: Performed By: #### L ACT #### [facility] [address] [place] [address] Dr. Etienne Fitch Urea nitrogen/Creatini ne [Mass ratio] 12.8 mg/mg Normal [facility] Comment on above: Performed By: #### L ACT #### [facility] [address] [place] [address] Dr. Etienne Fitch URINE MICROSCOPIC ONLYon BACTERIA TRACE Abnormal NONE SEEN [facility] Comment on above: Performed By: #### U MICRO, ERUR #### [facility] [address] [place] [address] Dr. Etienne Fitch Bacteria identified Cx Nom (U) NOT INDICATED Normal [facility] Comment on above: Performed By: #### U MICRO, ERUR #### [facility] [address] [place] [address] Dr. Etienne Fitch CAST SEEN Abnormal NONE SEEN [facility] Comment on above: Performed By: #### U MICRO, ERUR #### [facility] [address] [place] [address] Dr. Etienne Fitch Crystals LM Nom (Urine sed) NONE SEEN Normal NONE SEEN [facility] Comment on above: Performed By: #### U MICRO, ERUR #### [facility] [address] [place] [address] Dr. Etienne Fitch Epithelial cells LM Ql (Urine sed) NONE SEEN Normal NONE SEEN /RARE [facility] Comment on above: Performed By: #### U MICRO, ERUR #### [facility] [address] [place] [address] Dr. Etienne Fitch HYALINE CAST MODERATE Normal [facility] Comment on above: Performed By: #### U MICRO, ERUR #### [facility] [address] [address] [address] Etienne Fitch MUCOUS MODERATE Abnormal NONE SEEN [facility] Comment on above: Performed By: #### U MICRO, ERUR #### [facility] [address] [address] [address] Etienne Fitch RBC 0-2 Normal 0-2 [facility] Comment on above: Performed By: #### U MICRO, ERUR #### [facility] [address] [address] [address] Etienne Fitch WBC NONE SEEN Normal NONE SEEN [facility] Comment on above: Performed By: #### U MICRO, ERUR #### [facility] [address] [address] [address] Etienne Fitch XR ABD FLAT UP_PA [...] SHILPI THAPA Date: 2022-06-15 09:44 Normal [facility] ED Note-Physicianon 04-03-20 ED Note-Physician [id number]#[id number]:127 Normal [facility] CBC W MANUAL DIFFon 04-02-20 22 ATYPICAL LYMPH # Normal [facility] Comment on above: Performed By: #### U MICRO, ERUR #### [facility] [address] [address] [address] Etienne Fitch ATYPICAL LYMPH % Normal [facility] Comment on above: Performed By: #### U MICRO, ERUR #### [facility] [address] [address] [address] Etienne Fitch BAND # Normal 0.0-0.3 [facility] Comment on above: Performed By: #### U MICRO, ERUR #### [facility] [address] [place] [address] Dr. Etienne Fitch BAND % Normal 0-5 [facility] Comment on above: Performed By: #### U MICRO, ERUR #### [facility] [address] [place] [address] Dr. Etienne Fitch BASOM # 0.00 103/ul Normal 0.00-0.10 [facility] Comment on above: Performed By: #### U MICRO, ERUR #### [facility] [address] [place] [address] Dr. Etienne Fitch BASOM % 0.0 % Critically low 0.2-2.0 [facility] Comment on above: Performed By: #### U MICRO, ERUR #### [facility] [address] [place] [address] Dr. Etienne Fitch BLAST # Normal [facility] Comment on above: Performed By: #### U MICRO, ERUR #### [facility] [address] [place] [address] Dr. Etienne Fitch BLAST % Normal [facility] Comment on above: Performed By: #### U MICRO, ERUR #### [facility] [address] [place] [address] Dr. Etienne Fitch CORRECTED WBC Normal 4.0-11.0 [facility] Comment on above: Performed By: #### U MICRO, ERUR #### [facility] [address] [place] [address] Dr. Etienne Fitch EOS # 0.00 103/ul Normal 0.00-0.70 [facility] Comment on above: Performed By: #### U MICRO, ERUR #### [facility] [address] [place] [address] Dr. Etienne Fitch EOS% 0.0 % Critically low 0.9-7.0 [facility] Comment on above: Performed By: #### U MICRO, ERUR #### [facility] [address] [place] [address] Dr. Etienne Fitch HCT 43.5 % Normal 42.0-54.0 [facility] Comment on above: Performed By: #### U MICRO, ERUR #### [facility] [address] [place] [address] Dr. Etienne Fitch HGB 14.3 g/dl Normal 14.0-18.0 [facility] Comment on above: Result Comment: gett ing fluids Performed By: #### U MICRO, ERUR #### [facility] [address] [place] [address] Dr. Etienne Fitch LYMPHM # 3.30 103/ul Normal 1.20-3.80 [facility] Comment on above: Performed By: #### U MICRO, ERUR #### [facility] [address] [place] [address] Dr. Etienne Fitch LYMPHM% 20.0 % Critically low 20.5-60.0 [facility] Comment on above: Performed By: #### U MICRO, ERUR #### [facility] [address] [place] [address] Dr. Etienne Fitch MCH 30.9 pg Normal 25.9-34.0 [facility] Comment on above: Performed By: #### U MICRO, ERUR #### [facility] [address] [place] [address] Dr. Etienne Fitch MCHC 32.9 g/dl Normal 29.9-35.2 [facility] Comment on above: Performed By: #### U MICRO, ERUR #### [facility] [address] [place] [address] Dr. Etienne Fitch MCV 94.0 fL Normal 80.0-94.0 [facility] Comment on above: Performed By: #### U MICRO, ERUR #### [facility] [address] [place] [address] Dr. Etienne Fitch METAMYELOCYTE # Normal [facility] Comment on above: Performed By: #### U MICRO, ERUR #### [facility] [address] [place] [address] Dr. Etienne Fitch METAMYELOCYTE % Normal [facility] Comment on above: Performed By: #### U MICRO, ERUR #### [facility] [address] [address] [address] Etienne Fitch MONOM# 2.31 103/ul Critically high 0.30-0.80 [facility] Comment on above: Performed By: #### U MICRO, ERUR #### [facility] [address] [place] [address] Dr. Etienne Fitch MONOM% 14.0 % Critically high 1.7-12.0 [facility] Comment on above: Performed By: #### U MICRO, ERUR #### [facility] [address] [place] [address] Dr. Etienne Fitch MPV 10.5 fL Normal 9.5-13.5 [facility] Comment on above: Performed By: #### U MICRO, ERUR #### [facility] [address] [place] [address] Dr. Etienne Fitch MYELOCYTE # Normal [facility] Comment on above: Performed By: #### U MICRO, ERUR #### [facility] [address] [address] [address] Etienne Fitch MYELOCYTE % Normal [facility] Comment on above: Performed By: #### U MICRO, ERUR #### [facility] [address] [place] [address] Dr. Etienne Fitch NRBC Normal [facility] Comment on above: Performed By: #### U MICRO, ERUR #### [facility] [address] [address] [address] Etienne Fitch PLT 285 103/ul Normal 150-450 [facility] Comment on above: Performed By: #### U MICRO, ERUR #### [facility] [address] [address] [address] Etienne Fitch RBC 4.63 106/ul Critically low 4.70-6.10 [facility] Comment on above: Performed By: #### U MICRO, ERUR #### [facility] [address] [place] [address] Dr. Etienne Fitch RDW 12.8 % Normal 11.0-15.0 [facility] Comment on above: Performed By: #### U MICRO, ERUR #### [facility] [address] [address] [address] Etienne Fitch SEG # 10.89 103/ul Critically high 1.40-6.50 [facility] Comment on above: Performed By: #### U MICRO, ERUR #### [facility] [address] [address] [address] Etienne Fitch SEG % 66.0 % Normal 43.0-75.0 [facility] Comment on above: Performed By: #### U MICRO, ERUR #### [facility] [address] [place] [address] Dr. Etienne Fitch TOXIC GRANULATION 1+ Normal [facility] Comment on above: Performed By: #### U MICRO, ERUR #### [facility] [address] [place] [address] Dr. Etienne Fitch WBC 16.5 103/ul Critically high 4.0-11.0 [facility] Comment on above: Performed By: #### U MICRO, ERUR #### [facility] [address] [place] [address] Dr. Etienne Fitch PROF 14(COMP METB)on 022 Albumin [Mass/Vol] 3.2 g/dL Critically low 3.4-5.0 [facility] Comment on above: Performed By: #### L ACT #### [facility] [address] [place] [address] Dr. Etienne Fitch Albumin/Globulin [Mass ratio] 1.1 {ratio} Normal [facility] Comment on above: Performed By: #### L ACT #### [facility] [address] [place] [address] Dr. Etienne Fitch ALP [Catalytic activity/Vol] 55 U/L Normal 46-116 [facility] Comment on above: Performed By: #### L ACT #### [facility] [address] [place] [address] Dr. Etienne Fitch ALT [Catalytic activity/Vol] 28 U/L Normal 16-63 [facility] Comment on above: Performed By: #### L ACT #### [facility] [address] [address] [address] Etienne Fitch Anion gap [Moles/Vol] 12.6 mmol/L Normal [facility] Comment on above: Performed By: #### L ACT #### [facility] [address] [address] [address] Etienne Fitch AST [Catalytic activity/Vol] 20 U/L Normal 15-37 [facility] Comment on above: Performed By: #### L ACT #### [facility] [address] [address] [address] Etienne Fitch Bilirubin [Mass/Vol] 2.8 mg/dL Critically high 0.2-1.0 [facility] Comment on above: Performed By: #### L ACT #### [facility] [address] [place] [address] Dr. Etienne Fitch Calcium [Mass/Vol] 7.8 mg/dL Critically low 8.5-10.1 [facility] Comment on above: Performed By: #### L ACT #### [facility] [address] [address] [address] Etienne Fitch Chloride [Moles/Vol] 104 mmol/L Normal 98-107 [facility] Comment on above: Performed By: #### L ACT #### [facility] [address] [address] [address] Etienne Fitch CO2 [Moles/Vol] 28.0 mmol/L Normal 21.0-32.0 [facility] Comment on above: Performed By: #### L ACT #### [facility] [address] [address] [address] Etienne Fitch Creatinine [Mass/Vol] 0.97 mg/dL Normal 0.70-1.30 [facility] Comment on above: Performed By: #### L ACT #### [facility] [address] [address] [address] Etienne Fitch EGFR-AF MONTENEGRIN >60 Normal >=60 [facility] Comment on above: Performed By: #### L ACT #### [facility] [address] [place] [address] Dr. Etienne Fitch EGFR-NON AF MONTENEGRIN >60 Normal >=60 [facility] Comment on above: Performed By: #### L ACT #### [facility] [address] [address] [address] Etienne Fitch Globulin (S) [Mass/Vol] 2.9 g/dL Normal [facility] Comment on above: Performed By: #### L ACT #### [facility] [address] [address] [address] Etienne Fitch Glucose [Mass/Vol] 108 mg/dL Critically high 74-106 [facility] Comment on above: Performed By: #### L ACT #### [facility] [address] [place] [address] Dr. Etienne Fitch Potassium [Moles/Vol] 3.6 mmol/L Normal 3.5-5.1 [facility] Comment on above: Performed By: #### L ACT #### [facility] [address] [place] [address] Dr. Etienne Fitch Protein [Mass/Vol] 6.1 g/dL Critically low 6.4-8.2 [facility] Comment on above: Performed By: #### L ACT #### [facility] [address] [place] [address] Dr. Etienne Fitch Sodium [Moles/Vol] 141 mmol/L Normal 136-145 [facility] Comment on above: Performed By: #### L ACT #### [facility] [address] [address] [address] Etienne Fitch Urea nitrogen [Mass/Vol] 33.0 mg/dL Critically high 7.0-18.0 [facility] Comment on above: Performed By: #### L ACT #### [facility] [address] [place] [address] Dr. Etienne Fitch Urea nitrogen/Creatini ne [Mass ratio] 34.0 mg/mg Normal [facility] Comment on above: Performed By: #### L ACT #### [facility] [address] [place] [address] Dr. Etienne Fitch US SINGLE QUAD RT [...] ALEXA HOWARD Date: 2022-04-02 09:08 Normal [facility] CBC AUTO DIFFon 04-01-2022 BASO # 0.1 103/ul Normal 0.0-0.1 [facility] Comment on above: Performed By: #### U MICRO, ERUR #### [facility] [address] [address] [address] Etienne Fitch Basophils/100 WBC (Bld) 0.4 % Normal 0.2-2.0 [facility] Comment on above: Performed By: #### U MICRO, ERUR #### [facility] [address] [place] [address] Dr. Etienne Fitch EO # 0.0 103/ul Normal 0.0-0.7 [facility] Comment on above: Performed By: #### U MICRO, ERUR #### [facility] [address] [address] [address] Etienne Fitch Eosinophils/100 WBC (Bld) 0.0 % Critically low 0.9-7.0 [facility] Comment on above: Performed By: #### U MICRO, ERUR #### [facility] [address] [place] [address] Dr. Etienne Fitch Erythrocyte distribution width (RBC) [Ratio] 12.8 % Normal 11.0-15.0 [facility] Comment on above: Performed By: #### U MICRO, ERUR #### [facility] [address] [place] [address] Dr. Etienne Fitch Hematocrit (Bld) [Volume fraction] 55.1 % Critically high 42.0-54.0 [facility] Comment on above: Performed By: #### U MICRO, ERUR #### [facility] [address] [place] [address] Dr. Etienne Fitch Hemoglobin (Bld) [Mass/Vol] 18.3 g/dL Critically high 14.0-18.0 [facility] Comment on above: Performed By: #### U MICRO, ERUR #### [facility] [address] [place] [address] Dr. Etienne Fitch IG # 0.11 10e3/ul Critically high 0.00-0.03 [facility] Comment on above: Performed By: #### U MICRO, ERUR #### [facility] [address] [place] [address] Dr. Etienne Fitch IG % 0.5 % Normal 0.0-0.5 [facility] Comment on above: Performed By: #### U MICRO, ERUR #### [facility] [address] [place] [address] Dr. Etienne Fitch LYMPH # 1.2 103/ul Normal 1.2-3.8 [facility] Comment on above: Performed By: #### U MICRO, ERUR #### [facility] [address] [place] [address] Dr. Etienne Fitch Lymphocytes/100 WBC (Bld) 5.7 % Critically low 20.5-60.0 [facility] Comment on above: Performed By: #### U MICRO, ERUR #### [facility] [address] [place] [address] Dr. Etienne Fitch MANUAL DIFF REQ NO Normal [facility] Comment on above: Performed By: #### U MICRO, ERUR #### [facility] [address] [place] [address] Dr. Etienne Fitch MCH (RBC) [Entitic mass] 30.7 pg Normal 25.9-34.0 [facility] Comment on above: Performed By: #### U MICRO, ERUR #### [facility] [address] [place] [address] Dr. Etienne Fitch MCHC (RBC) [Mass/Vol] 33.2 g/dL Normal 29.9-35.2 [facility] Comment on above: Performed By: #### U MICRO, ERUR #### [facility] [address] [place] [address] Dr. Etienne Fitch MCV (RBC) [Entitic vol] 92.3 fL Normal 80.0-94.0 [facility] Comment on above: Performed By: #### U MICRO, ERUR #### [facility] [address] [place] [address] Dr. Etienne Fitch MONO # 1.6 103/ul Critically high 0.3-0.8 [facility] Comment on above: Performed By: #### U MICRO, ERUR #### [facility] [address] [place] [address] Dr. Etienne Fitch Monocytes/100 WBC (Bld) 7.4 % Normal 1.7-12.0 [facility] Comment on above: Performed By: #### U MICRO, ERUR #### [facility] [address] [place] [address] Dr. Etienne Fitch NEUT # 18.6 103/ul Critically high 1.4-6.5 [facility] Comment on above: Performed By: #### U MICRO, ERUR #### [facility] [address] [place] [address] Dr. Etienne Fitch Neutrophils/100 WBC (Bld) 86.0 % Critically high 43.0-75.0 [facility] Comment on above: Performed By: #### U MICRO, ERUR #### [facility] [address] [place] [address] Dr. Etienne Fitch Platelet mean volume (Bld) [Entitic vol] 10.3 fL Normal 9.5-13.5 [facility] Comment on above: Performed By: #### U MICRO, ERUR #### [facility] [address] [place], [place] [address] Dr. Etienne Fitch PLT 447 103/ul Normal 150-450 [facility] Comment on above: Performed By: #### U MICRO, ERUR #### [facility] [address] [place], [place] [address] Dr. Etienne Fitch RBC 5.97 106/ul Normal 4.70-6.10 [facility] Comment on above: Performed By: #### U MICRO, ERUR #### [facility] [address] [place], [place] [address] Dr. Etienne Fitch WBC 21.6 103/ul Critically high 4.0-11.0 [facility] Comment on above: Performed By: #### U MICRO, ERUR #### [facility] [address] [place], [place] [address] ABD/PELV W CONon [...] ALEXA HOWARD Date: 2022-04-01 15:11 Normal [facility] Covid-19 PCR (CVDTBH)on SARS-CoV-2 (COVID-19) RNA KWABENA+probe Ql (Unsp spec) Not detected Normal NOT DETECTED [facility] Comment on above: Result Comment: When diagnostic [...] for this test is supported by the Pediatrician Managing Partner of Health and Human Service's declaration that [...] used). Performed By: #### C VDTBH #### [facility] [address] [place] [address] Dr. Etienne Fitch ER URINE PROFILEon 2 Bilirubin Ql (U) MODERATE Abnormal NEGATIVE [facility] Comment on above: Performed By: #### U MICRO, ERUR #### [facility] [address] [place] [address] Dr. Etienne Fitch Clarity (U) CLEAR Normal CLEAR [facility] Comment on above: Performed By: #### U MICRO, ERUR #### [facility] [address] [place] [address] Dr. Etienne Fitch Color (U) DK. ORANGE Abnormal YELLOW [facility] Comment on above: Performed By: #### U MICRO, ERUR #### [facility] [address] [place] [address] Dr. Etienne Fitch ERUAHD A micrscopic examina tion will be performed if indicated. Normal [facility] Comment on above: Performed By: #### U MICRO, ERUR #### [facility] [address] [address] [address] Etienne Fitch Glucose Ql (U) Negative Normal NEGATIVE [facility] Comment on above: Performed By: #### U MICRO, ERUR #### [facility] [address] [address] [address] Etienne Fitch Hemoglobin Ql (U) Negative Normal NEGATIVE [facility] Comment on above: Performed By: #### U MICRO, ERUR #### [facility] [address] [place] [address] Dr. Etienne Fitch Ketones Ql (U) Negative Normal NEGATIVE [facility] Comment on above: Performed By: #### U MICRO, ERUR #### [facility] [address] [place] [address] Dr. Etienne Fitch LEUKOCYTES Negative Normal NEGATIVE [facility] Comment on above: Performed By: #### U MICRO, ERUR #### [facility] [address] [address] [address] Etienne Fitch Nitrite Ql (U) Negative Normal NEGATIVE [facility] Comment on above: Performed By: #### U MICRO, ERUR #### [facility] [address] [place] [address] Dr. Etienne Fitch pH (U) 5.5 [pH] Normal 5-9 [facility] Comment on above: Performed By: #### U MICRO, ERUR #### [facility] [address] [place] [address] Dr. Etienne Fitch Protein (U) [Mass/Vol] 100 mg/dL Abnormal NEGATIVE/ TRACE [facility] Comment on above: Performed By: #### U MICRO, ERUR #### [facility] [address] [place] [address] Dr. Etienne Fitch SPEC GRAVITY >=1.030 Abnormal 1.005-<=1.[address] [place] [address] Comment on above: Performed By: #### U MICRO, ERUR #### [facility] [address] [place] [address] Dr. Etienne Fitch UR MICRO IND INDICATED Normal [facility] Comment on above: Performed By: #### U MICRO, ERUR #### [facility] [address] [place] [address] Dr. Etienne Fitch Urobilinogen Qn (U) 1.0 {Nesha'U}/dL Normal 0.2 - 1.0 [facility] Comment on above: Performed By: #### U MICRO, ERUR #### [facility] [address] [place] [address] Dr. Etienne Fitch LACTATE/LACTIC ACIDon 2021 Lactate [Moles/Vol] 1.8 mmol/L Normal 0.4-1.9 [facility] Comment on above: Performed By: #### U MICRO, ERUR #### [facility] [address] [place] [address] Dr. Etienne Fitch Lactate [Moles/Vol] 2.3 mmol/L Critically high 0.4-1.9 [facility] Comment on above: Result Comment: repe ated Performed By: #### L ACT #### [facility] [address] [place] [address] Dr. Etienne Fitch LIPASEon 04-01-2022 Lipase [Catalytic activity/Vol] 32.0 U/L Critically low 73.0-393.0 [facility] Comment on above: Performed By: #### U MICRO, ERUR #### [facility] [address] [place] [address] Dr. Etienne Fitch PROF 14(COMP METB)on 022 Albumin [Mass/Vol] 4.9 g/dL Normal 3.4-5.0 [facility] Comment on above: Performed By: #### U MICRO, ERUR #### [facility] [address] [place] [address] Dr. Etienne Fitch Albumin/Globulin [Mass ratio] 1.2 {ratio} Normal [facility] Comment on above: Performed By: #### U MICRO, ERUR #### [facility] [address] [place] [address] Dr. Etienne Fithc ALP [Catalytic activity/Vol] 82 U/L Normal 46-116 [facility] Comment on above: Performed By: #### U MICRO, ERUR #### [facility] [address] [address] [address] Etienne Fitch ALT [Catalytic activity/Vol] 37 U/L Normal 16-63 [facility] Comment on above: Performed By: #### U MICRO, ERUR #### [facility] [address] [address] [address] Etienne Fitch Anion gap [Moles/Vol] 13.2 mmol/L Normal [facility] Comment on above: Performed By: #### U MICRO, ERUR #### [facility] [address] [address] [address] Etienne Fitch AST [Catalytic activity/Vol] 31 U/L Normal 15-37 [facility] Comment on above: Performed By: #### U MICRO, ERUR #### [facility] [address] [address] [address] Etienne Fitch Bilirubin [Mass/Vol] 4.8 mg/dL Critically high 0.2-1.0 [facility] Comment on above: Performed By: #### U MICRO, ERUR #### [facility] [address] [address] [address] Etienne Fitch Calcium [Mass/Vol] 9.8 mg/dL Normal 8.5-10.1 [facility] Comment on above: Performed By: #### U MICRO, ERUR #### [facility] [address] [address] [address] Etienne Fitch Chloride [Moles/Vol] 98 mmol/L Normal 98-107 [facility] Comment on above: Performed By: #### U MICRO, ERUR #### [facility] [address] [address] [address] Etienne Fitch CO2 [Moles/Vol] 31.2 mmol/L Normal 21.0-32.0 [facility] Comment on above: Performed By: #### U MICRO, ERUR #### [facility] [address] [address] [address] Etienne Fitch Creatinine [Mass/Vol] 1.63 mg/dL Critically high 0.70-1.30 [facility] Comment on above: Performed By: #### U MICRO, ERUR #### [facility] [address] [address] [address] Etienne Fitch EGFR-AF MONTENEGRIN 56 mL/min/1.73m2 Critically low >=60 [facility] Comment on above: Performed By: #### U MICRO, ERUR #### [facility] [address] [address] [address] Etienne Fitch EGFR-NON AF MONTENEGRIN 46 mL/min/1.73m2 Critically low >=60 [facility] Comment on above: Performed By: #### U MICRO, ERUR #### [facility] [address] [address] [address] Etienne Fitch Globulin (S) [Mass/Vol] 4.1 g/dL Normal [facility] Comment on above: Performed By: #### U MICRO, ERUR #### [facility] [address] [address] [address] Etienne Fitch Glucose [Mass/Vol] 142 mg/dL Critically high 74-106 [facility] Comment on above: Performed By: #### U MICRO, ERUR #### [facility] [address] [place] [address] Dr. Etienne Fitch Potassium [Moles/Vol] 3.4 mmol/L Critically low 3.5-5.1 [facility] Comment on above: Performed By: #### U MICRO, ERUR #### [facility] [address] [place] [address] Dr. Etienne Fitch Protein [Mass/Vol] 9.0 g/dL Critically high 6.4-8.2 [facility] Comment on above: Performed By: #### U MICRO, ERUR #### [facility] [address] [place] [address] Dr. Etienne Fitch Sodium [Moles/Vol] 139 mmol/L Normal 136-145 [facility] Comment on above: Performed By: #### U MICRO, ERUR #### [facility] [address] [address] [address] Etienne Fitch Urea nitrogen [Mass/Vol] 40.0 mg/dL Critically high 7.0-18.0 [facility] Comment on above: Performed By: #### U MICRO, ERUR #### [facility] [address] [address] [address] Etienne Fitch Urea nitrogen/Creatini ne [Mass ratio] 24.5 mg/mg Normal [facility] Comment on above: Performed By: #### U MICRO, ERUR #### [facility] [address] [address] [address] Etienne Fitch TROPONIN, HIGH SENSITIVITYon 04-01-2022 HSTROP 44.4 pg/mL Normal 4.0-76.1 [facility] Comment on above: Result Comment: CUT- OFF POINTS HAVE BEEN ESTABLISHED BASED ON THE FOURTH UNIVERSAL DEFINITIONS OF MYOCARDIAL INFARCTION. THE UPPER REFERENCE LIMIT (URL) OF TROPONIN, DEFINED THE 99TH PERCENTILE OF cTnI DISTRIBUTION IN A REFERENCE POPULATION, HAS BEEN CONFIRMED THE DECISION THRESHOLD FOR WI DIAGNOSIS. Performed By: #### U MICRO, ERUR #### [facility] [address] [place] [address] Dr. Etienne Fitch URINE MICROSCOPIC ONLYon BACTERIA NONE SEEN Normal NONE SEEN [facility] Comment on above: Performed By: #### U MICRO, ERUR #### [facility] [address] [place] [address] Dr. Etienne Fitch Bacteria identified Cx Nom (U) NOT INDICATED Normal [facility] Comment on above: Performed By: #### U MICRO, ERUR #### [facility] [address] [address] [address] Etienne Fitch CAST SEEN Abnormal NONE SEEN [facility] Comment on above: Performed By: #### U MICRO, ERUR #### [facility] [address] [address] [address] Etienne Fitch Crystals LM Nom (Urine sed) NONE SEEN Normal NONE SEEN [facility] Comment on above: Performed By: #### U MICRO, ERUR #### [facility] [address] [place] [address] Dr. Etienne Fitch Epithelial cells LM Ql (Urine sed) NONE SEEN Normal NONE SEEN /RARE [facility] Comment on above: Performed By: #### U MICRO, ERUR #### [facility] [address] [address] [address] Etienne Fitch MUCOUS NONE SEEN Normal NONE SEEN [facility] Comment on above: Performed By: #### U MICRO, ERUR #### [facility] [address] [address] [address] Etienne Fitch RBC NONE SEEN Abnormal 0-2 [facility] Comment on above: Performed By: #### U MICRO, ERUR #### [facility] [address] [address] [address] Etienne Fitch WBC 0-2 Abnormal NONE SEEN [facility] Comment on above: Performed By: #### U MICRO, ERUR #### [facility] [address] [address] [address] Etienne Fitch Vital Signs Date Time Vital Sign Value Performing Clinician Faci emanuely 07-02-2022 13:15-0400 Blood Pressure Location [facility] 07-02-2022 13:15-0400 Diastolic blood pressure 74 mm[Hg] [facility] 07-02-2022 13:15-0400 Heart rate 72 /min [facility] 07-02-2022 13:15-0400 Respiratory rate 16 /min [facility] 07-02-2022 13:15-0400 Systolic blood pressure 120 mm[Hg] [facility] Encounters Encounter Date Encounter Type Care Provider Facility Start: 02-07-2023 Encounter for genera l adult medical examination without abnormal findings [facility] Start: 01-29-2023 End: 01-30-2023 ambulatory [facility] Facility:[facility] Start: 01-29-2023 End: 01-30-2023 Encounter for general adult medical examination without abnormal findings [facility] Facility:[facility] Start: 12-18-2022 End: 12-19-2022 ambulatory MAKENZIE Dedrick JOHNNY Facility:[facility] Start: 12-12-2022 End: 12-12-2022 ambulatory EVELYN GLASER . Facility: Start: 08-07-2022 ambulatory Anupam POOLE Facility :[facility] [place] Start: 08-07-2022 End: 08-07-2022 Patient encounter procedure Anupam POOLE [facility] Start: 07-24-2022 Encounter for preprocedural laboratory examination DR ANUPAM POOLE . [facility] Start: 07-24-2022 End: 07-25-2022 ambulatory Anupam POOLE Facility:[id number] Start: 07-20-2022 End: 07-21-[address] ANUPAM POOLE . Facility: Start: 07-20-2022 End: 07-21-2022 Encounter for preprocedural laboratory examination DR ANUPAM POOLE . Facility: Start: 07-17-2022 End: 07-18-[address] ANUPAM POOLE . Facility: Start: 07-02-2022 End: 07-03-2022 ambulatory Anupam POOLE Facility:[facility] [place] Start: 07-02-2022 End: 07-02-2022 Patient encounter procedure Anupam POOLE General Surgery [facility] Tania Start: 06-15-2022 End: 06-15-2022 ambulatory EVELYN GLASER . Facility: Start: 04-23-2022 ambulatory Anupam POOLE Facility :[facility] [place] Start: 04-02-2022 ambulatory Anupam POOLE Facility :[facility] [place] Start: 04-01-2022 End: 04-02-[address] ALEXA HOWARD Facility: Procedures Date Procedure Procedure Detail Performing Clinician Start: 07-24-2022 Colonoscopy Anupam ELLIOTT Start: 07-24-2022 Esophagogastroduodenoscopy Anupam POOLE None (qualifier value) Elias POOLE Payers Date Payer Category Payer Unknown [id number] 2.16.8 [id number] 1978 Unknown [id number] 2.16.8 [id number] 1978 Unknown [id number] 2.16.8 [id number] 1978 Unknown [id number] 2.16.8 [id number] 1978 Unknown [id number] 2.16.84 [id number] 1978 Unknown [id number] 2.16.84 [id number] 1978 Unknown [id number] 2.16.84 [id number] 1978 Unknown [id number] 2.16.84 [id number] 1978 Unknown [id number] 2.16.84 [id number] 1978 Unknown [id number] 2.16.84 [id number] 1978 Unknown [id number] 2.16.84 [id number] 1978 Unknown [id number] 2.16.84 [id number] 1959 Unknown [id number] Social History Date Type Detail Facility Start: 07-02-2022 Tobacco smoking status Ex-smoker (fi nding) [facility] Tobacco smoking status Smokeless tobacco user within last 30 days [facility] Sex Assigned At Male [facility] Functional Status Date Assessment Result Facility 07-02-2022 Functional Status N/A [facility] Clinical Note 07-24-2022 Note Date & Type [...] in good condition. CC: Family physician [facility] Clinical Note 07-02-2022 Note Date & Type Note Facility 07-02-2022 Note Chief Complaint consultation for ABD pain HPI Staff 41 year old male presents on consultation from [facility] ED for abdominal pain. Presented to [...] Allergies No K (more content not included)... [facility] Comment on above: Result Comment: Elec tronically Signed By: SAMIR MOCK, Anupam Thompson\Date and Time Signed: 07/02/22 21:30 EDT History and physical note 04-03-2022 Note Date & Type Note Facility 04-03-2022 Note [id number] #[id number] [facility] Evaluation + Plan note Note Date & Type Note Facility Evaluation + Plan note No data available for this section [facility] Discharge instructions Note Date & Type Note Facility Hospital Discharge instructions No data available for this section [facility] Progress note Note Date & Type Note Facility Progress note No data available for this section [facility] Summary Purpose Family History No Family History Records FoundNo Family History Records Found Advance Directives No Advanced Directives Records FoundNo Advanced Directives Records Found Additional Source Comments Care Team (unrecognized sect ion and content) Personnel Name: RANJANA TRAYLOR MD Address: [address] [place] [id number] Personnel Name: RANJANA TRAYLOR MD Address: Address: [address] [place], [place] [id number] [address] (unrecognized sect ion and content) No Status Records FoundNo Status Records Found INFORMATION SOURCE (unrecogn ized section and content) DATE CREATED AUTHOR 08/07/2022 [facility] DATE CREATED AUTHOR AUTHOR'Shyann LOPEZ 02/08/2023 Bossman [...] BE BASED ON THE PRIMARY CLINICAL RECORDS. [facility] [employer] provides no warranty or guarantee of the accuracy or completeness of information in this document.
[2024-05-23] MEDS: FLUOXETINE HCL 20 MG CAPSULE 60 MG PO (03:56)
[2024-05-23 04:00] VITALS: BP 147/76; PULSE 73; TEMP 36.9; O2SAT 94
[2024-05-23 07:59] LABS: Basophils Percent Auto 0.1 % (0.2-2.0); Hematocrit 40.3 % (42.0-54.0); Immature Granulocytes Abs Auto 0.06 10^3/uL (0.00-0.03); Immature Granulocytes Pct Auto 0.4 % (0.0-0.5); Lymphocytes Absolute Auto 1.1 10^3/uL (1.2-3.8); Lymphocytes Percent Auto 8.5 % (20.5-60.0); Mean Corpuscular HGB Conc 32.3 g/dL (29.9-35.2); Mean Corpuscular Hemoglobin 29.7 pg (25.9-34.0); Mean Platelet Volume 10.4 fL (9.5-13.5); Monocytes Absolute Auto 1.3 10^3/uL (0.3-0.8); Neutrophils Absolute Auto 10.8 10^3/uL (1.4-6.5); Platelet Count 365 10^3/uL (150-450); Red Blood Count 4.38 10^6/uL (4.70-6.10); Red Cell Distribution Width 13.4 % (11.0-15.0); White Blood Count 13.4 10^3/uL (4.0-11.0)
[2024-05-23 08:17] LABS: Alanine Aminotransferase 25 U/L (16-63); Albumin Level 3.9 g/dL (3.4-5.0); Alkaline Phosphatase 89 U/L (46-116); Anion Gap 15.2; Aspartate Amino Transferase 19 U/L (15-37); BUN Creatinine Ratio 24.5; Bilirubin Total 1.1 mg/dL (0.2-1.0); Calcium 9.1 mg/dL (8.5-10.1); Carbon Dioxide 26.9 mmol/L (21.0-32.0); Chloride 111 mmol/L (98-107); Estimated GFR (African America >60 (>=60); Estimated GFR (Non-African Ame >60 (>=60); Globulin 3.8 g/dL; Glucose 128 mg/dL (74-106); Potassium 4.1 mmol/L (3.5-5.1); Sodium 149 mmol/L (136-145); Total Protein 7.7 g/dL (6.4-8.2)
--- NOTE | 2024-05-23 11:22 | PM.HP ---
HPI H&P: HPI History of Present Illness Chief complaint: vomiting Narrative: HPI and Hospital Course: 43 y o male presented with nausea/vomiting and inability to keep food down. His symptoms started a day before he presented to ED. He reports that similar episodes occur 2-3 times a year w/o any rhyme or reason. he was admitted overnight for nausea/vomiting and dehydration. He feels well today and was able to tolerate liquid diet. Patient feels well and stable for discharge. He was educated on worrisome signs and symptoms and to return to ED if he developed intractable N/V or any concerning signs or symptoms. Opioid HPI Opioid Management Most Recent Pain and Opioid Data: Last Pain Scale 1 05/23/24 10:00 Last Pain Assessment 05/23/24 10:00 Last ORT Total Score 12 05/23/24 02:24 Last ORT Risk Category High Risk 05/23/24 02:24 Ur Phencyclidine Scrn Negative (NEGATIVE) 05/22/24 19:44 Review of Systems ROS Status of ROS 10 or more systems reviewed and unremarkable except as noted in history and below [facility] Medical History (Updated 05/23/24 @ 11:26 by Shaikh Keyona MD) Emphysema of lung ?J43.9 - Emphysema, unspecified (ICD-10) Cannabis hyperemesis syndrome concurrent with and due to cannabis abuse ?F12.188 - Cannabis abuse with other cannabis-induced disorder (ICD-10) Marijuana abuse, continuous ?F12.10 - Cannabis abuse, uncomplicated (ICD-10) Hyperbilirubinemia ?E80.6 - Other disorders of bilirubin metabolism (ICD-10) Elevated liver enzymes ?R74.8 - Abnormal levels of other serum enzymes (ICD-10) Abdominal pain ?R10.9 - Unspecified abdominal pain (ICD-10) Nausea and vomiting ?R11.2 - Nausea with vomiting, unspecified (ICD-10) Abdominal pain ?R10.9 - Unspecified abdominal pain (ICD-10) Pneumonia ?J18.9 - Pneumonia, unspecified organism (ICD-10) Benign essential HTN ?I10 - Essential (primary) hypertension (ICD-10) Anxiety ?F41.9 - Anxiety disorder, unspecified (ICD-10) Bipolar 1 disorder ?F31.9 - Bipolar disorder, unspecified (ICD-10) Family History (Updated 02/06/24 @ 04:58 by Kelsie Fitch RN) Father Family history of CHF (congestive heart failure) Family history of hypertension Family history of myocardial infarction Family history of stroke Grandfather Family history of cancer Family history of myocardial infarction Family history of stroke Uncle Family history of cancer Grandmother Family history of diabetes mellitus Social History Within the past year, how often did you have a drink containing alcohol: never Within the past year, how often did you have six or more drinks on one occasion: never Score interpretation: A score less than 4 is consistent with normal alcohol consumption. Smoking status: Current every day smoker Do you use any of these nicotine containing products: vaping products Non-prescribed substance use: cannabis (any form) Highest level of school completed/degree received: high school graduate Are you now , , , , never or living with a partner: In a typical week, how many times do you talk on the telephone with family, friends, or neighbors: 3 or more times per week How often do you get together with friends or relatives: 3 or more times per week How often do you attend advent or jewish services: never Little interest or pleasure in doing things: not at all Feeling down, depressed, or hopeless: several days Feel stressed/tense/nervous/anxious/difficulty sleeping: to some extent Do you think of yourself as: straight/heterosexual Gender Identity: male Meds Home Medications and Allergies Home Medications ?Medication ?Instructions ?Recorded ?Confirmed ?Type olanzapine 2.5 mg tablet 2.5 mg PO BEDTIME 07/16/23 05/22/24 History fluoxetine 60 mg tablet 60 mg PO QPM 11/04/23 05/22/24 History Allergies Allergy/AdvReac Type Severity Reaction Status Date / Time No Known Drug Allergies Allergy Verified 05/22/24 19:38 Exam Constitutional Vital Signs, click to edit/add: Last Vital Signs Temp 98.4 F 05/23/24 04:00 Pulse 73 05/23/24 04:00 Resp 14 05/23/24 04:00 BP 147/76 H 05/23/24 04:00 Pulse Ox 94 L 05/23/24 04:00 O2 Del Method Room Air 05/23/24 04:00 Documenting provider has reviewed patient's vital signs: yes Common normals: no apparent distress and oriented x3 General appearance: cooperative [facility] Common normals: normocephalic and head/scalp atraumatic Head and scalp: normocephalic and atraumatic Eye Common normals: conjunctivae normal and no scleral icterus Conjunctiva: conjunctiva(e) normal Respiratory Common normals: normal respiratory effort and clear to auscultation bilaterally Effort & inspection: able to speak in complete sentences Auscultation: clear to auscultation bilaterally Cardio Common normals: regular rate, S1 normal heart sound and S2 normal heart sound Rate: regular rate Heart sounds: S1 normal and S2 normal GI Common normals: Normal to inspection, nondistended, normoactive bowel sounds present, soft to palpation, non-tender and no hepatosplenomegaly Palpation: soft and no hepatosplenomegaly Extremity Common normals: no clubbing, cyanosis or edema Neuro Common normals: oriented x3, moves all extremities and no focal motor deficits Psych Common normals: mental status grossly normal, denies hallucinations, denies homicidal ideation and denies suicidal ideation Results Labs Labs: Short CBC 05/22/24 05/23/24 Range/Units 19:53 07:02 WBC 15.1 H 13.4 H (4.0-11.0) 10^3/uL Hgb 16.2 13.0 L (14.0-18.0) g/dL Hct 48.3 40.3 L (42.0-54.0) % Plt Count 524 H 365 (150-450) 10^3/uL BMP 05/22/24 05/23/24 19:53 07:02 Sodium 148 H 149 H Potassium 3.8 4.1 Chloride 107 111 H Carbon Dioxide 20.0 L 26.9 BUN 32.0 H 26.0 H Creatinine 1.71 H 1.06 Glucose 157 H 128 H Calcium 10.9 H 9.1 Liver Function 05/22/24 05/23/24 Range/Units 19:53 07:02 Total Bilirubin 1.7 H 1.1 H (0.2-1.0) mg/dL AST 15 19 (15-37) U/L ALT 30 25 (16-63) U/L Alkaline Phosphatase 123 H 89 (46-116) U/L Albumin 5.0 3.9 (3.4-5.0) g/dL Urine 05/22/24 Range/Units 19:44 Urine Color Dk. yellow (YELLOW) Urine Clarity Clear (CLEAR) Urine pH 6.5 (5.0-9.0) Ur Specific [place] 1.025 (1.005-1.025) Urine Protein 100 A (NEG/TRACE) mg/dL Urine Glucose (UA) Negative (NEGATIVE) mg/dL Assessment and Plan Assessment and Plan (1) Cyclical vomiting: Assessment and Plan: Likely has cyclic vomiting syndrome/cannabis hyperemesis syndrome No sig pathology on CT abd/pelvis. Symptoms improved. Stable for discharge on oral zofran (2) Nausea & vomiting: Assessment and Plan: Improved. Stable for discharge. Qualifiers: Vomiting type: unspecified Qualified Code(s): R11.2 - Nausea with vomiting, unspecified (3) Leukocytosis: Assessment and Plan: likely reactive, imroved. Monitor as outpatient. Qualifiers: Leukocytosis type: leukemoid reaction Qualified Code(s): D72.823 - Leukemoid reaction (4) Lactic acid acidosis: Assessment and Plan: due to dehydration. Improved. (5) Benign essential HTN: Assessment and Plan: Not on any medications. Previously discussed with pt but he was not started on anything for it. I will start him on norvasc. Asked patient to f/u with PCP, monitor BP at home. (6) Bipolar 1 disorder: Assessment and Plan: Stable. c/w prozac, zyprexa
[2024-05-23 11:51] VITALS: BP 144/92; PULSE 79; O2SAT 94
[2024-05-23 12:46] LABS: Anion Gap 17.1; BUN Creatinine Ratio 21.2; Calcium 9.2 mg/dL (8.5-10.1); Carbon Dioxide 25.5 mmol/L (21.0-32.0); Chloride 108 mmol/L (98-107); Estimated GFR (African America >60 (>=60); Estimated GFR (Non-African Ame >60 (>=60); Glucose 100 mg/dL (74-106); Potassium 3.6 mmol/L (3.5-5.1); Sodium 147 mmol/L (136-145)
--- NOTE | 2024-05-24 13:41 | CM.DCFOLLOWU ---
1st attempt 05/24/24
--- NOTE | 2024-05-25 13:28 | CM.DCFOLLOWU ---
2nd attempt 05/25/24
== END 2024-05-23 13:35 | disposition home or self-care (01) ==
LOC: ER 05-23 02:16 → MS 05-23 02:21
PROVIDERS: Registered Nurse; Admitting Provider Internal Medicine; Emergency Provider Internal Medicine; PCP Nurse Practitioner Primary Care; Visit Provider Internal Medicine
DX: E86.0 Dehydration (principal); R11.15 Cyclical vomiting syndrome unrelated to migraine; D72.829 Elevated white blood cell count, unspecified; E87.20 Acidosis, unspecified; I10 Essential (primary) hypertension; F31.9 Bipolar disorder, unspecified; Z79.899 Other long term (current) drug therapy; F17.290 Nicotine dependence, other tobacco product, uncomplicated; F12.90 Cannabis use, unspecified, uncomplicated
CPT/HCPCS: 36415; 74019; 74177; 80048; 80053; 80179; 80307; 80320; 80329; 81001; 83605; 83690; 84484; 85025; 87086; 96361; 96374; 96375; 96376; 99285; G0378; J1200; J2405; J2765; Q9967

== ENCOUNTER 2024-07-16 19:27 | Observation (INO) | payer OTHER, SELFPAY ==
[2024-07-16 19:36] VITALS: BP 150/90; PULSE 104; TEMP 36.6; O2SAT 97; BMI 24.2
--- OUTSIDE RECORDS SUMMARY | 2024-07-16 19:36 | XMS_ITS | CCD ---
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 Etienne Fitch Interpretation: Comment Normal [facility] Comment on above: Result Comment: Not infected with HCV unless early or acute infection is suspected (which may be delayed in an immunocompromised individual), or other evidence exists to indicate HCV infection. Performed By: #### L ACT #### [facility] [address], [place] [address] Dr. Etienne Fitch HIV 1 AND 2 WITH REFLEXon HIV Screen 4th Generation wRfx Non-Reactive Normal Non Reactive [facility] Comment on above: Result Comment: HIV Negative HIV-1/HIV-2 antibodies and HIV-1 p24 antigen were NOT detected. There is no laboratory evidence of HIV infection. Performed By: #### H IV12 #### [facility] [address] [address] [address] Etienne Fitch LIPID PROFILEon 01-29-2023 CHOL-HDL RATIO NORM SEE BELOW Normal [facility] Comment on above: Result Comment: 3.3 - 4.4 LOW RISK 4.4 - 7.1 AVERAGE RISK 7.1 - 11.0 MODERATE RISK >11.0 HIGH RISK Performed By: #### U MICRO, ERUR #### [facility] [address] [address] [address] Etienne Fitch Cholesterol [Mass/Vol] 196 mg/dL Normal <=200 [facility] Comment on above: Performed By: #### U MICRO, ERUR #### [facility] [address] [address] [address] Etienne Fitch Cholesterol in HDL [Mass/Vol] 78 mg/dL Critically high 40-60 [facility] Comment on above: Performed By: #### U MICRO, ERUR #### [facility] [address] [address] [address] Etienne Fitch Cholesterol in LDL [Mass/Vol] 106.6 mg/dL Normal [facility] Comment on above: Performed By: #### U MICRO, ERUR #### [facility] [address] [address] [address] Etienne Fitch Cholesterol.total /Cholesterol in HDL [Mass ratio] 2.5 {ratio} Normal [facility] Comment on above: Performed By: #### U MICRO, ERUR #### [facility] [address] [address] [address] Etienne Fitch HDL NORMAL > or = 60 mg/dl - LO W CARDIOVASCULAR RISK <40 mg/dl - HIGH CARDIOVASCULAR RISK Normal [facility] Comment on above: Performed By: #### U MICRO, ERUR #### [facility] [address] [address] [address] Etienne Fitch LDL CALC NORMAL SEE BELOW Normal [facility] Comment on above: Result Comment: <100 mg/dl OPTIMAL 100 - 129 mg/dl NEAR OR ABOVE OPTIMAL 130 - 159 mg/dl BORDERLINE HIGH 160 - 189 mg/dl HIGH >190 mg/dl VERY HIGH Performed By: #### U MICRO, ERUR #### [facility] [address] [address] [address] Etienne Fitch Triglyceride [Mass/Vol] 57 mg/dL Normal <=150 [facility] Comment on above: Performed By: #### U MICRO, ERUR #### [facility] [address] [address] [address] Etienne Fitch VLDL CALC 11.4 mg/dL Normal [facility] Comment on above: Performed By: #### U MICRO, ERUR #### [facility] [address] [place] [address] Dr. Etienne Fitch PROF CHEM 8 (BAS METB)on Anion gap [Moles/Vol] 7.4 mmol/L Normal [facility] Comment on above: Performed By: #### U MICRO, ERUR #### [facility] [address] [address] [address] Etienne Fitch Calcium [Mass/Vol] 10.0 mg/dL Normal 8.5-10.1 [facility] Comment on above: Performed By: #### U MICRO, ERUR #### [facility] [address] [address] [address] Etienne Fitch Chloride [Moles/Vol] 101 mmol/L Normal 98-107 [facility] Comment on above: Performed By: #### U MICRO, ERUR #### [facility] [address] [address] [address] Etienne Fitch CO2 [Moles/Vol] 34.0 mmol/L Critically high 21.0-32.0 [facility] Comment on above: Performed By: #### U MICRO, ERUR #### [facility] [address] [place] [address] Dr. Etienne Fitch Creatinine [Mass/Vol] 1.27 mg/dL Normal 0.70-1.30 [facility] Comment on above: Performed By: #### U MICRO, ERUR #### [facility] [address] [address] [address] Etienne Fitch EGFR-AF FRENCH >60 Normal >=60 [facility] Comment on above: Performed By: #### U MICRO, ERUR #### [facility] [address] [address] [address] Etienne Fitch EGFR-NON AF FRENCH >60 Normal >=60 [facility] Comment on above: Performed By: #### U MICRO, ERUR #### [facility] [address] [address] [address] Etienne Fitch Glucose [Mass/Vol] 116 mg/dL Critically high 74-106 [facility] Comment on above: Performed By: #### U MICRO, ERUR #### [facility] [address] [address] [address] Etienne Fitch Potassium [Moles/Vol] 4.4 mmol/L Normal 3.5-5.1 [facility] Comment on above: Performed By: #### U MICRO, ERUR #### [facility] [address] [address] [address] Etienne Fitch Sodium [Moles/Vol] 138 mmol/L Normal 136-145 [facility] Comment on above: Performed By: #### U MICRO, ERUR #### [facility] [address] [address] [address] Etienne Fitch Urea nitrogen [Mass/Vol] 33.0 mg/dL Critically high 7.0-18.0 [facility] Comment on above: Performed By: #### U MICRO, ERUR #### [facility] [address] [address] [address] Etienne Fitch Urea nitrogen/Creatini ne [Mass ratio] 26.0 mg/mg Normal [facility] Comment on above: Performed By: #### U MICRO, ERUR #### [facility] [address] [address] [address] Etienne Fitch CBC AUTO DIFFon 12-12-2022 BASO # 0.0 103/ul Normal 0.0-0.1 [facility] Comment on above: Performed By: #### C BC #### [facility] [address] [address] [address] Etienne Fitch Basophils/100 WBC (Bld) 0.2 % Normal 0.2-2.0 [facility] Comment on above: Performed By: #### C BC #### [facility] [address] [address] [address] Etienne Fitch EO # 0.0 103/ul Normal 0.0-0.7 [facility] Comment on above: Performed By: #### C BC #### [facility] [address] [place] [address] Dr. Etienne Fitch Eosinophils/100 WBC (Bld) 0.1 % Critically low 0.9-7.0 [facility] Comment on above: Performed By: #### C BC #### [facility] [address] [place] [address] Dr. Etienne Fitch Erythrocyte distribution width (RBC) [Ratio] 12.8 % Normal 11.0-15.0 [facility] Comment on above: Performed By: #### C BC #### [facility] [address] [place] [address] Dr. Etienne Fitch Hematocrit (Bld) [Volume fraction] 55.0 % Critically high 42.0-54.0 [facility] Comment on above: Performed By: #### C BC #### [facility] [address] [place] [address] Dr. Etienne Fitch Hemoglobin (Bld) [Mass/Vol] 18.5 g/dL Critically high 14.0-18.0 [facility] Comment on above: Performed By: #### C BC #### [facility] [address] [place] [address] Dr. Etienne Fitch IG # 0.07 10e3/ul Critically high 0.00-0.03 [facility] Comment on above: Performed By: #### C BC #### [facility] [address] [place] [address] Dr. Etienne Fitch IG % 0.5 % Normal 0.0-0.5 [facility] Comment on above: Performed By: #### C BC #### [facility] [address] [place] [address] Dr. Etienne Fitch LYMPH # 1.4 103/ul Normal 1.2-3.8 [facility] Comment on above: Performed By: #### C BC #### [facility] [address] [place] [address] Dr. Etienne Fitch Lymphocytes/100 WBC (Bld) 10.1 % Critically low 20.5-60.0 [facility] Comment on above: Performed By: #### C BC #### [facility] [address] [place] [address] Dr. Etienne Fitch MANUAL DIFF REQ NO Normal [facility] Comment on above: Performed By: #### C BC #### [facility] [address] [place] [address] Dr. Etienne Fitch MCH (RBC) [Entitic mass] 29.6 pg Normal 25.9-34.0 [facility] Comment on above: Performed By: #### C BC #### [facility] [address] [place] [address] Dr. Etienne Fitch MCHC (RBC) [Mass/Vol] 33.6 g/dL Normal 29.9-35.2 [facility] Comment on above: Performed By: #### C BC #### [facility] [address] [place] [address] Dr. Eteinne Fitch MCV (RBC) [Entitic vol] 87.9 fL Normal 80.0-94.0 [facility] Comment on above: Performed By: #### C BC #### [facility] [address] [place] [address] Dr. Etienne Fitch MONO # 1.5 103/ul Critically high 0.3-0.8 [facility] Comment on above: Performed By: #### C BC #### [facility] [address] [place] [address] Dr. Etienne Fitch Monocytes/100 WBC (Bld) 11.3 % Normal 1.7-12.0 [facility] Comment on above: Performed By: #### C BC #### [facility] [address] [address] [address] Etienne Fitch NEUT # 10.6 103/ul Critically high 1.4-6.5 [facility] Comment on above: Performed By: #### C BC #### [facility] [address] [place] [address] Dr. Etienne Fitch Neutrophils/100 WBC (Bld) 77.8 % Critically high 43.0-75.0 [facility] Comment on above: Performed By: #### C BC #### [facility] [address] [place] [address] Dr. Etienne Fitch Platelet mean volume (Bld) [Entitic vol] 11.1 fL Normal 9.5-13.5 [facility] Comment on above: Performed By: #### C BC #### [facility] [address] [place] [address] Dr. Etienne Fitch PLT 371 103/ul Normal 150-450 [facility] Comment on above: Performed By: #### C BC #### [facility] [address] [place] [address] Dr. Etienne Fitch RBC 6.26 106/ul Critically high 4.70-6.10 [facility] Comment on above: Performed By: #### C BC #### [facility] [address] [place] [address] Dr. Etienne Fitch WBC 13.6 103/ul Critically high 4.0-11.0 [facility] Comment on above: Performed By: #### C BC #### [facility] [address] [place] [address] Dr. Etienne Fitch Covid-19 PCR ([facility])on 11-27 SARS-CoV-2 (COVID-19) RNA KWABENA+probe Ql (Unsp spec) Not detected Normal NOT DETECTED [facility] Comment on above: Result Comment: When diagnostic [...] for this test is supported by the Brokerage Coordinator of Health and Human Service's declaration that [...] Performed By: #### U MICRO, ERUR #### [facility] [address] [place] [address] Dr. Etienne Fitch ER URINE PROFILEon 3 Bilirubin Ql (U) Negative Normal NEGATIVE [facility] Comment on above: Performed By: #### U MICRO, ERUR #### [facility] [address] [place] [address] Dr. Etienne Fitch Clarity (U) CLEAR Normal CLEAR [facility] Comment on above: Performed By: #### U MICRO, ERUR #### [facility] [address] [place] [address] Dr. Etienne Fitch Color (U) LT. YELLOW Normal YELLOW [facility] Comment on above: Performed By: #### U MICRO, ERUR #### [facility] [address] [place] [address] Dr. Etienne Fitch ERUAHD A micrscopic examina tion will be performed if indicated. Normal [facility] Comment on above: Performed By: #### U MICRO, ERUR #### [facility] [address] [place] [address] Dr. Etienne Fitch Glucose Ql (U) Negative Normal NEGATIVE [facility] Comment on above: Performed By: #### U MICRO, ERUR #### [facility] [address] [place] [address] Dr. Etienne Fithc Hemoglobin Ql (U) Negative Normal NEGATIVE [facility] Comment on above: Performed By: #### U MICRO, ERUR #### [facility] [address] [address] [address] Etienne Fitch Ketones Ql (U) Negative Normal NEGATIVE [facility] Comment on above: Performed By: #### U MICRO, ERUR #### [facility] [address] [place] [address] Dr. Etienne Fitch LEUKOCYTES Negative Normal NEGATIVE [facility] Comment on above: Performed By: #### U MICRO, ERUR #### [facility] [address] [address] [address] Etienne Fitch Nitrite Ql (U) Negative Normal NEGATIVE [facility] Comment on above: Performed By: #### U MICRO, ERUR #### [facility] [address] [place] [address] Dr. Etienne Fitch pH (U) 6.0 [pH] Normal 5-9 [facility] Comment on above: Performed By: #### U MICRO, ERUR #### [facility] [address] [place] [address] Dr. Etienne Fitch SPEC GRAVITY 1.015 Normal 1.005-<=1.02 5 [facility] Comment on above: Performed By: #### U MICRO, ERUR #### [facility] [address] [place] [address] Dr. Etienne Fitch UA PROTEIN Negative Normal NEGATIVE/ TRACE [facility] Comment on above: Performed By: #### U MICRO, ERUR #### [facility] [address] [place] [address] Dr. Etienne Fitch UR MICRO IND NOT INDICATED Normal [facility] Comment on above: Performed By: #### U MICRO, ERUR #### [facility] [address] [place] [address] Dr. Etienne Fitch Urobilinogen Qn (U) 0.2 {Nesha'U}/dL Normal 0.2 - 1.0 [facility] Comment on above: Performed By: #### U MICRO, ERUR #### [facility] [address] [place] [address] Dr. Etienne Fitch INFLUENZA A AND B AGon 12-12 INFLUANEGH SEE BELOW Normal [facility] Comment on above: Result Comment: Nega tive for Flu A protein angiten. Infection due to Flu A cannot be ruled out. Flu A angiten in the sample may be below the detection limit of the test. Performed By: #### I NFLUAB #### [facility] [address] [place] [address] Dr. Etienne Fitch [facility] SEE BELOW Normal [facility] Comment on above: Result Comment: Nega tive for Flu B protein antigen. Infection due to Flu B cannot be ruled out. Flu B antigen in the sample may be below the detection limit of the test. Performed By: #### I NFLUAB #### [facility] [address] [place] [address] Dr. Etienne Fitch INFLUENZA A AG Negative Normal NEGATIVE SEE COMMENT [facility] Comment on above: Performed By: #### I NFLUAB #### [facility] [address] [place] [address] Dr. Etienne Fitch INFLUENZA B AG Negative Normal NEGATIVE SEE COMMENT [facility] Comment on above: Performed By: #### I NFLUAB #### [facility] [address] [place] [address] Dr. Etienne Fitch PROF 14(COMP METB)on 023 Albumin [Mass/Vol] 4.4 g/dL Normal 3.4-5.0 [facility] Comment on above: Performed By: #### U MICRO, ERUR #### [facility] [address] [place] [address] Dr. Etienne Fitch Albumin/Globulin [Mass ratio] 1.0 {ratio} Normal [facility] Comment on above: Performed By: #### U MICRO, ERUR #### [facility] [address] [place] [address] Dr. Etienne Fitch ALP [Catalytic activity/Vol] 107 U/L Normal 46-116 [facility] Comment on above: Performed By: #### U MICRO, ERUR #### [facility] [address] [place] [address] Dr. Etienne Fitch ALT [Catalytic activity/Vol] 23 U/L Normal 16-63 [facility] Comment on above: Performed By: #### U MICRO, ERUR #### [facility] [address] [address] [address] Etienne Fitch Anion gap [Moles/Vol] 19.1 mmol/L Normal [facility] Comment on above: Performed By: #### U MICRO, ERUR #### [facility] [address] [address] [address] Etienne Fitch AST [Catalytic activity/Vol] 24 U/L Normal 15-37 [facility] Comment on above: Performed By: #### U MICRO, ERUR #### [facility] [address] [address] [address] Etienne Fitch Bilirubin [Mass/Vol] 2.2 mg/dL Critically high 0.2-1.0 [facility] Comment on above: Performed By: #### U MICRO, ERUR #### [facility] [address] [address] [address] Etienne Fitch Calcium [Mass/Vol] 9.5 mg/dL Normal 8.5-10.1 [facility] Comment on above: Performed By: #### U MICRO, ERUR #### [facility] [address] [address] [address] Etienne Fitch Chloride [Moles/Vol] 102 mmol/L Normal 98-107 [facility] Comment on above: Performed By: #### U MICRO, ERUR #### [facility] [address] [address] [address] Etienne Fitch CO2 [Moles/Vol] 26.5 mmol/L Normal 21.0-32.0 [facility] Comment on above: Performed By: #### U MICRO, ERUR #### [facility] [address] [address] [address] Etienne Fitch Creatinine [Mass/Vol] 2.27 mg/dL Critically high 0.70-1.30 [facility] Comment on above: Performed By: #### U MICRO, ERUR #### [facility] [address] [address] [address] Etienne Fitch EGFR-AF FRENCH 38 mL/min/1.73m2 Critically low >=60 [facility] Comment on above: Performed By: #### U MICRO, ERUR #### [facility] [address] [address] [address] Etienne Fitch EGFR-NON AF FRENCH 32 mL/min/1.73m2 Critically low >=60 [facility] Comment on above: Performed By: #### U MICRO, ERUR #### [facility] [address] [address] [address] Etienne Fitch Globulin (S) [Mass/Vol] 4.4 g/dL Normal [facility] Comment on above: Performed By: #### U MICRO, ERUR #### [facility] [address] [place] [address] Dr. Etienne Fitch Glucose [Mass/Vol] 136 mg/dL Critically high 74-106 [facility] Comment on above: Performed By: #### U MICRO, ERUR #### [facility] [address] [address] [address] Etienne Fitch Potassium [Moles/Vol] 4.6 mmol/L Normal 3.5-5.1 [facility] Comment on above: Performed By: #### U MICRO, ERUR #### [facility] [address] [place] [address] Dr. Etienne Fitch Protein [Mass/Vol] 8.8 g/dL Critically high 6.4-8.2 [facility] Comment on above: Performed By: #### U MICRO, ERUR #### [facility] [address] [address] [address] Etienne Fitch Sodium [Moles/Vol] 143 mmol/L Normal 136-145 [facility] Comment on above: Performed By: #### U MICRO, ERUR #### [facility] [address] [place] [address] Dr. Etienne Fitch Urea nitrogen [Mass/Vol] 89.0 mg/dL Critically high 7.0-18.0 [facility] Comment on above: Performed By: #### U MICRO, ERUR #### [facility] [address] [place] [address] Dr. Etienne Fitch Urea nitrogen/Creatini ne [Mass ratio] 42.0 mg/mg Normal [facility] Comment on above: Performed By: #### U MICRO, ERUR #### [facility] [address] [address] [address] Etienne Fitch PROF CHEM 8 (BAS METB)on Anion gap [Moles/Vol] 12.4 mmol/L Normal [facility] Comment on above: Performed By: #### U MICRO, ERUR #### [facility] [address] [address] [address] Etienne Fitch Calcium [Mass/Vol] 8.9 mg/dL Normal 8.5-10.1 [facility] Comment on above: Performed By: #### U MICRO, ERUR #### [facility] [address] [place] [address] Dr. Etienne Fitch Chloride [Moles/Vol] 110 mmol/L Critically high 98-107 [facility] Comment on above: Performed By: #### U MICRO, ERUR #### [facility] [address] [address] [address] Etienne Fitch CO2 [Moles/Vol] 29.6 mmol/L Normal 21.0-32.0 [facility] Comment on above: Performed By: #### U MICRO, ERUR #### [facility] [address] [place] [address] Dr. Etienne Fitch Creatinine [Mass/Vol] 2.04 mg/dL Critically high 0.70-1.30 [facility] Comment on above: Performed By: #### U MICRO, ERUR #### [facility] [address] [address] [address] Etienne Fitch EGFR-AF FRENCH 43 mL/min/1.73m2 Critically low >=60 [facility] Comment on above: Performed By: #### U MICRO, ERUR #### [facility] [address] [address] [address] Etienne Fitch EGFR-NON AF FRENCH 36 mL/min/1.73m2 Critically low >=60 [facility] Comment on above: Performed By: #### U MICRO, ERUR #### [facility] [address] [address] [address] Etienne Fitch Glucose [Mass/Vol] 112 mg/dL Critically high 74-106 [facility] Comment on above: Performed By: #### U MICRO, ERUR #### [facility] [address] [address] [address] Etienne Fitch Potassium [Moles/Vol] 5.0 mmol/L Normal 3.5-5.1 [facility] Comment on above: Performed By: #### U MICRO, ERUR #### [facility] [address] [address] [address] Etienne Fitch Sodium [Moles/Vol] 147 mmol/L Critically high 136-145 [facility] Comment on above: Performed By: #### U MICRO, ERUR #### [facility] [address] [address] [address] Etienne Fitch Urea nitrogen [Mass/Vol] 79.0 mg/dL Critically high 7.0-18.0 [facility] Comment on above: Performed By: #### U MICRO, ERUR #### [facility] [address] [address] [address] Etienne Fitch Urea nitrogen/Creatini ne [Mass ratio] 38.7 mg/mg Normal [facility] Comment on above: Performed By: #### U MICRO, ERUR #### [facility] [address] [address] [address] Etienne Fitch Ambulatory Visit Summaryon 1 [...] & vomiting RLQ abdominal pain Normal [facility] General Surgery Office/Clini c Noteon 08-07-2022 [...] Father. Heart disease: Mother. TIA: Mother. Normal [facility] Comment on above: Result Comment: Elec tronically Signed By: SAMIR MOCK, Anupam Thompson\Date and Time Signed: 08/07/22 13:24 EDT Reminderson 08-07-2022 Reminders - From: Harika Simmons LPN To: N - Clinical; Sent: 08/07/2022 13:07:35 EDT Show up: 06/23/2032 07:00:00 EDT Subject: colonoscopy recall Due Date/Time: 07/24/2032 07:00:00 EDT Reminder/Recall Patient is due for screening colonoscopy 07/24/2032. Normal [facility] Pathology Noteon 07-29-2022 Pathology Note [id number]#1.00CD:127 Normal [facility] Outside Colonoscopyon 2021 Outside Colonoscopy [id number]#1.00CD:127 Normal [facility] RAD - MRI Reporton RAD - MRI Report [id number]#1.00CD:127 Normal [facility] Lab Reportson 07-22-2022 Lab Reports [id number]#1.00CD:127 Normal [facility] RAD - MRI Reporton RAD - MRI Report [id number]#1.00CD:127 Normal [facility]on 06-28 SARS-CoV-2 (COVID-19) RNA KWABENA+probe Ql (Unsp spec) Not detected Normal NOT DETECTED [facility] Comment on above: Result Comment: This test is not yet approved or cleared by the [place] FDA. When there are no FDA-approved or cleared tests available, and other criteria are met, FDA can make tests available under an emergency access mechanism called an Emergency Use Authorization (EUA). The EUA for this test is supported by the Brokerage Coordinator of Health and Human Service's (HHS's) declaration [...] consistent with SARS-CoV-2. Performed By: #### C [facility] #### [facility] [address] [place] [address] Dr. Etienne Fitch MRI ABDOMEN WO CONon [...] by: ALEXA HOWARD Date: 2022-07-19 07:49 Normal [facility] Consent for Procedure/Surger yon 07-04-2022 Consent for Procedure/Surgery [id number]#1.00CD:127 Normal [facility] Ambulatory Visit Summaryon 0 07-02-2022 Ambulatory [...] Nausea & vomiting RLQ abdominal pain Normal [facility] ED Note-Physicianon 07-02-20 ED Note-Physician [id number]#1.00CD:127 Normal [facility] RAD - MISCon 06-27-2022 RAD - MISC [id number]#1.00CD:127 Normal [facility] AMYLASEon 06-15-2022 Amylase [Catalytic activity/Vol] 47 U/L Normal 25-115 [facility] Comment on above: Performed By: #### L ACT #### [facility] [address] [place] [address] Dr. Etienne Fitch CBC AUTO DIFFon 06-15-2022 BASO # 0.1 103/ul Normal 0.0-0.1 [facility] Comment on above: Performed By: #### U MICRO, ERUR #### [facility] [address] [place] [address] Dr. Etienne Fitch Basophils/100 WBC (Bld) 0.5 % Normal 0.2-2.0 [facility] Comment on above: Performed By: #### U MICRO, ERUR #### [facility] [address] [place] [address] Dr. Etienne Fitch EO # 0.0 103/ul Normal 0.0-0.7 [facility] Comment on above: Performed By: #### U MICRO, ERUR #### [facility] [address] [place] [address] Dr. Etienne Fitch Eosinophils/100 WBC (Bld) 0.1 % Critically low 0.9-7.0 [facility] Comment on above: Performed By: #### U MICRO, ERUR #### [facility] [address] [place] [address] Dr. Etienne Fitch Erythrocyte distribution width (RBC) [Ratio] 11.9 % Normal 11.0-15.0 [facility] Comment on above: Performed By: #### U MICRO, ERUR #### [facility] [address] [place] [address] Dr. Etienne Fitch Hematocrit (Bld) [Volume fraction] 48.4 % Normal 42.0-54.0 [facility] Comment on above: Performed By: #### U MICRO, ERUR #### [facility] [address] [place] [address] Dr. Etienne Fitch Hemoglobin (Bld) [Mass/Vol] 16.6 g/dL Normal 14.0-18.0 [facility] Comment on above: Performed By: #### U MICRO, ERUR #### [facility] [address] [place] [address] Dr. Etienne Fitch IG # 0.06 10e3/ul Critically high 0.00-0.03 [facility] Comment on above: Performed By: #### U MICRO, ERUR #### [facility] [address] [place] [address] Dr. Etienne Fitch IG % 0.4 % Normal 0.0-0.5 [facility] Comment on above: Performed By: #### U MICRO, ERUR #### [facility] [address] [place] [address] Dr. Etienne Fitch LYMPH # 0.8 103/ul Critically low 1.2-3.8 [facility] Comment on above: Performed By: #### U MICRO, ERUR #### [facility] [address] [place] [address] Dr. Etienne Fitch Lymphocytes/100 WBC (Bld) 5.0 % Critically low 20.5-60.0 [facility] Comment on above: Performed By: #### U MICRO, ERUR #### [facility] [address] [place] [address] Dr. Etienne Fitch MANUAL DIFF REQ NO Normal [facility] Comment on above: Performed By: #### U MICRO, ERUR #### [facility] [address] [place] [address] Dr. Etienne Fitch MCH (RBC) [Entitic mass] 30.9 pg Normal 25.9-34.0 [facility] Comment on above: Performed By: #### U MICRO, ERUR #### [facility] [address] [place] [address] Dr. Etienne Fitch MCHC (RBC) [Mass/Vol] 34.3 g/dL Normal 29.9-35.2 [facility] Comment on above: Performed By: #### U MICRO, ERUR #### [facility] [address] [place] [address] Dr. Etienne Fitch MCV (RBC) [Entitic vol] 90.1 fL Normal 80.0-94.0 [facility] Comment on above: Performed By: #### U MICRO, ERUR #### [facility] [address] [address] [address] Etienne Fitch MONO # 0.8 103/ul Normal 0.3-0.8 [facility] Comment on above: Performed By: #### U MICRO, ERUR #### [facility] [address] [place] [address] Dr. Etienne Fitch Monocytes/100 WBC (Bld) 5.3 % Normal 1.7-12.0 [facility] Comment on above: Performed By: #### U MICRO, ERUR #### [facility] [address] [place] [address] Dr. Etienne Fitch NEUT # 13.9 103/ul Critically high 1.4-6.5 [facility] Comment on above: Performed By: #### U MICRO, ERUR #### [facility] [address] [place] [address] Dr. Etienne Fitch Neutrophils/100 WBC (Bld) 88.7 % Critically high 43.0-75.0 [facility] Comment on above: Performed By: #### U MICRO, ERUR #### [facility] [address] [place] [address] Dr. Etienne Fitch Platelet mean volume (Bld) [Entitic vol] 10.9 fL Normal 9.5-13.5 [facility] Comment on above: Performed By: #### U MICRO, ERUR #### [facility] [address] [place] [address] Dr. Etienne Fitch PLT 424 103/ul Normal 150-450 [facility] Comment on above: Performed By: #### U MICRO, ERUR #### [facility] [address] [place] [address] Dr. Etienne Fitch RBC 5.37 106/ul Normal 4.70-6.10 [facility] Comment on above: Performed By: #### U MICRO, ERUR #### [facility] [address] [place] [address] Dr. Etienne Fitch WBC 15.7 103/ul Critically high 4.0-11.0 [facility] Comment on above: Performed By: #### U MICRO, ERUR #### [facility] [address] [address] [address] Etienne Fitch DRUG SCREEN RAPID (URINE)on 06-15-2022 AMP Negative Normal NEGATIVE [facility] Comment on above: Performed By: #### D RUGRPD #### [facility] [address] [place] [address] Dr. Etienne Fitch BAR Negative Normal NEGATIVE [facility] Comment on above: Performed By: #### D RUGRPD #### [facility] [address] [address] [address] Etienne Fitch BUP Negative Normal NEGATIVE [facility] Comment on above: Performed By: #### D RUGRPD #### [facility] [address] [place] [address] Dr. Etienne Fitch BZO Negative Normal NEGATIVE [facility] Comment on above: Performed By: #### D RUGRPD #### [facility] [address] [place] [address] Dr. Etienne Fitch MILTON Negative Normal NEGATIVE [facility] Comment on above: Performed By: #### D RUGRPD #### [facility] [address] [place] [address] Dr. Etienne Fitch CUT-OFFS SEE BELOW Normal [facility] Comment on above: Result Comment: AMP [...] ng/mL Performed By: #### D RUGRPD #### [facility] [address] [place] [address] Dr. Etienne Fitch DRUG CUT HEADER DRUG CLASS TEST SYST EM CUT-OFF CONCENTRATIONS ARE FOLLOWS: Normal [facility] Comment on above: Performed By: #### D RUGRPD #### [facility] [address] [address] [address] Etienne Fitch mAMP Negative Normal NEGATIVE [facility] Comment on above: Performed By: #### D RUGRPD #### [facility] [address] [address] [address] Etienne Fitch MTD Negative Normal NEGATIVE [facility] Comment on above: Performed By: #### D RUGRPD #### [facility] [address] [place] [address] Dr. Etienne Fitch OPI Negative Normal NEGATIVE [facility] Comment on above: Performed By: #### D RUGRPD #### [facility] [address] [place] [address] Dr. Etienne Fitch OXY Negative Normal NEGATIVE [facility] Comment on above: Performed By: #### D RUGRPD #### [facility] [address] [place] [address] Dr. Etienne Fitch PCP Negative Normal NEGATIVE [facility] Comment on above: Performed By: #### D RUGRPD #### [facility] [address] [place] [address] Dr. Etienne Fitch PPX Negative Normal NEGATIVE [facility] Comment on above: Performed By: #### D RUGRPD #### [facility] [address] [place] [address] Dr. Etienne Fitch TCA Negative Normal NEGATIVE [facility] Comment on above: Performed By: #### D RUGRPD #### [facility] [address] [place] [address] Dr. Etienne Fitch THC Positive Abnormal NEGATIVE [facility] Comment on above: Performed By: #### D RUGRPD #### [facility] [address] [place] [address] Dr. Etienne Fitch ER URINE PROFILEon 2 Bilirubin Ql (U) MODERATE Abnormal NEGATIVE [facility] Comment on above: Performed By: #### U MICRO, ERUR #### [facility] [address] [place] [address] Dr. Etienne Fitch Clarity (U) CLEAR Normal CLEAR [facility] Comment on above: Performed By: #### U MICRO, ERUR #### [facility] [address] [address] [address] Etienne Fitch Color (U) DK. ORANGE Abnormal YELLOW [facility] Comment on above: Performed By: #### U MICRO, ERUR #### [facility] [address] [place] [address] Dr. Etienne Fitch ERUAHD A micrscopic examina tion will be performed if indicated. Normal [facility] Comment on above: Performed By: #### U MICRO, ERUR #### [facility] [address] [place] [address] Dr. Etienne Fitch Glucose Ql (U) Negative Normal NEGATIVE [facility] Comment on above: Performed By: #### U MICRO, ERUR #### [facility] [address] [place] [address] Dr. Etienne Fitch Hemoglobin Ql (U) Negative Normal NEGATIVE [facility] Comment on above: Performed By: #### U MICRO, ERUR #### [facility] [address] [place] [address] Dr. Etienne Fitch Ketones Ql (U) 40 mg/dl Abnormal NEGATIVE [facility] Comment on above: Performed By: #### U MICRO, ERUR #### [facility] [address] [place] [address] Dr. Etienne Fitch LEUKOCYTES Negative Normal NEGATIVE [facility] Comment on above: Performed By: #### U MICRO, ERUR #### [facility] [address] [address] [address] Etienne Fitch Nitrite Ql (U) Negative Normal NEGATIVE [facility] Comment on above: Performed By: #### U MICRO, ERUR #### [facility] [address] [place] [address] Dr. Etienne Fitch pH (U) 6.0 [pH] Normal 5-9 [facility] Comment on above: Performed By: #### U MICRO, ERUR #### [facility] [address] [place] [address] Dr. Etienne Fitch Protein (U) [Mass/Vol] 100 mg/dL Abnormal NEGATIVE/ TRACE [facility] Comment on above: Performed By: #### U MICRO, ERUR #### [facility] [address] [place] [address] Dr. Etienne Fitch SPEC GRAVITY >=1.030 Abnormal 1.005-<=1.02 5 [facility] Comment on above: Performed By: #### U MICRO, ERUR #### [facility] [address] [place] [address] Dr. Etienne Fitch UR MICRO IND INDICATED Normal [facility] Comment on above: Performed By: #### U MICRO, ERUR #### [facility] [address] [place] [address] Dr. Etienne Fitch Urobilinogen Qn (U) 1.0 {Nesha'U}/dL Normal 0.2 - 1.0 [facility] Comment on above: Performed By: #### U MICRO, ERUR #### [facility] [address] [place] [address] Dr. Etienne Fitch ETHANOL (BLD ALC)on 06-15-20 ALC NOTE NOTE: 80 mg/dl is th e legal limit for a blood alcohol level Normal [facility] Comment on above: Performed By: #### E TH #### [facility] [address] [place] [address] Dr. Etienne Fitch Ethanol [Mass/Vol] mg/dL Normal [facility] Comment on above: Performed By: #### E TH #### [facility] [address] [place] [address] Dr. Etienne Fitch LIPASEon 06-15-2022 Lipase [Catalytic activity/Vol] 32.0 U/L Critically low 73.0-393.0 [facility] Comment on above: Performed By: #### L ACT #### [facility] [address] [place] [address] Dr. Etienne Fitch PROF 14(COMP METB)on Albumin [Mass/Vol] 5.4 g/dL Critically high 3.4-5.0 [facility] Comment on above: Performed By: #### L ACT #### [facility] [address] [place] [address] Dr. Etienne Fitch Albumin/Globulin [Mass ratio] 1.4 {ratio} Normal [facility] Comment on above: Performed By: #### L ACT #### [facility] [address] [address] [address] Etienne Fitch ALP [Catalytic activity/Vol] 93 U/L Normal 46-116 [facility] Comment on above: Performed By: #### L ACT #### [facility] [address] [place] [address] Dr. Etienne Fitch ALT [Catalytic activity/Vol] 19 U/L Normal 16-63 [facility] Comment on above: Performed By: #### L ACT #### [facility] [address] [place] [address] Dr. Etienne Fitch Anion gap [Moles/Vol] 18.2 mmol/L Normal [facility] Comment on above: Performed By: #### L ACT #### [facility] [address] [place] [address] Dr. Etienne Fitch AST [Catalytic activity/Vol] 23 U/L Normal 15-37 [facility] Comment on above: Performed By: #### L ACT #### [facility] [address] [place] [address] Dr. Etienne Fitch Bilirubin [Mass/Vol] 3.0 mg/dL Critically high 0.2-1.0 [facility] Comment on above: Performed By: #### L ACT #### [facility] [address] [place] [address] Dr. Etienne Fitch Calcium [Mass/Vol] 11.2 mg/dL Critically high 8.5-10.1 [facility] Comment on above: Performed By: #### L ACT #### [facility] [address] [place] [address] Dr. Etienne Fitch Chloride [Moles/Vol] 102 mmol/L Normal 98-107 [facility] Comment on above: Performed By: #### L ACT #### [facility] [address] [place] [address] Dr. Etienne Fitch CO2 [Moles/Vol] 27.0 mmol/L Normal 21.0-32.0 [facility] Comment on above: Performed By: #### L ACT #### [facility] [address] [address] [address] Etienen Fitch Creatinine [Mass/Vol] 1.49 mg/dL Critically high 0.70-1.30 [facility] Comment on above: Performed By: #### L ACT #### [facility] [address] [address] [address] Etienne Fitch EGFR-AF FRENCH >60 Normal >=60 [facility] Comment on above: Performed By: #### L ACT #### [facility] [address] [address] [address] Etienne Fitch EGFR-NON AF FRENCH 51 mL/min/1.73m2 Critically low >=60 [facility] Comment on above: Performed By: #### L ACT #### [facility] [address] [place] [address] Dr. Etienne Fitch Globulin (S) [Mass/Vol] 4.0 g/dL Normal [facility] Comment on above: Performed By: #### L ACT #### [facility] [address] [place] [address] Dr. Etienne Fitch Glucose [Mass/Vol] 183 mg/dL Critically high 74-106 [facility] Comment on above: Performed By: #### L ACT #### [facility] [address] [place] [address] Dr. Etienne Fitch Potassium [Moles/Vol] 4.2 mmol/L Normal 3.5-5.1 [facility] Comment on above: Performed By: #### L ACT #### [facility] [address] [address] [address] Etienne Fitch Protein [Mass/Vol] 9.4 g/dL Critically high 6.4-8.2 [facility] Comment on above: Performed By: #### L ACT #### [facility] [address] [address] [address] Etienne Fitch Sodium [Moles/Vol] 143 mmol/L Normal 136-145 [facility] Comment on above: Performed By: #### L ACT #### [facility] [address] [place] [address] Dr. Etienne Fitch Urea nitrogen [Mass/Vol] 19.0 mg/dL Critically high 7.0-18.0 [facility] Comment on above: Performed By: #### L ACT #### [facility] [address] [place] [address] Dr. Etienne Fitch Urea nitrogen/Creatini ne [Mass ratio] 12.8 mg/mg Normal [facility] Comment on above: Performed By: #### L ACT #### [facility] [address] [place] [address] Dr. Etienne Fitch URINE MICROSCOPIC ONLYon BACTERIA TRACE Abnormal NONE SEEN [facility] Comment on above: Performed By: #### U MICRO, ERUR #### [facility] [address] [place] [address] Dr. Etienne Fitch Bacteria identified Cx Nom (U) NOT INDICATED Normal [facility] Comment on above: Performed By: #### U MICRO, ERUR #### [facility] [address] [place] [address] Dr. Etienne Fitch CAST SEEN Abnormal NONE SEEN [facility] Comment on above: Performed By: #### U MICRO, ERUR #### [facility] [address] [place] [address] Dr. Etienne Fitch Crystals LM Nom (Urine sed) NONE SEEN Normal NONE SEEN [facility] Comment on above: Performed By: #### U MICRO, ERUR #### [facility] [address] [place] [address] Dr. Etienne iFtch Epithelial cells LM Ql (Urine sed) NONE SEEN Normal NONE SEEN /RARE [facility] Comment on above: Performed By: #### U MICRO, ERUR #### [facility] [address] [place] [address] Dr. Etienne Fitch HYALINE CAST MODERATE Normal [facility] Comment on above: Performed By: #### U MICRO, ERUR #### [facility] [address] [address] [address] Etienne Fitch MUCOUS MODERATE Abnormal NONE SEEN [facility] Comment on above: Performed By: #### U MICRO, ERUR #### [facility] [address] [address] [address] Etienne Fitch RBC 0-2 Normal 0-2 [facility] Comment on above: Performed By: #### U MICRO, ERUR #### [facility] [address] [address] [address] Etienne Fitch WBC NONE SEEN Normal NONE SEEN [facility] Comment on above: Performed By: #### U MICRO, ERUR #### [facility] [address] [address] [address] Etienne Fitch XR ABD FLAT UP_PA [...] SHILPI THAPA Date: 2022-06-15 09:44 Normal [facility] ED Note-Physicianon 04-03-20 ED Note-Physician [id number]#[id number]:127 Normal [facility] CBC W MANUAL DIFFon 04-02-20 22 ATYPICAL LYMPH # Normal [facility] Comment on above: Performed By: #### U MICRO, ERUR #### [facility] [address] [address] [address] Etienne Fitch ATYPICAL LYMPH % Normal [facility] Comment on above: Performed By: #### U MICRO, ERUR #### [facility] [address] [address] [address] Etienne Fitch BAND # Normal 0.0-0.3 [facility] Comment on above: Performed By: #### U MICRO, ERUR #### [facility] [address] [place] [address] Dr. Etienne Fitch BAND % Normal 0-5 [facility] Comment on above: Performed By: #### U MICRO, ERUR #### [facility] [address] [place] [address] Dr. Etienne Fitch BASOM # 0.00 103/ul Normal 0.00-0.10 [facility] Comment on above: Performed By: #### U MICRO, ERUR #### [facility] [address] [place] [address] Dr. Etienne Fitch BASOM % 0.0 % Critically low 0.2-2.0 [facility] Comment on above: Performed By: #### U MICRO, ERUR #### [facility] [address] [place] [address] Dr. Etienne Fitch BLAST # Normal [facility] Comment on above: Performed By: #### U MICRO, ERUR #### [facility] [address] [place] [address] Dr. Etienne Fitch BLAST % Normal [facility] Comment on above: Performed By: #### U MICRO, ERUR #### [facility] [address] [place] [address] Dr. Etienne Fitch CORRECTED WBC Normal 4.0-11.0 [facility] Comment on above: Performed By: #### U MICRO, ERUR #### [facility] [address] [place] [address] Dr. Etienne Fitch EOS # 0.00 103/ul Normal 0.00-0.70 [facility] Comment on above: Performed By: #### U MICRO, ERUR #### [facility] [address] [place] [address] Dr. Etienne Fitch EOS% 0.0 % Critically low 0.9-7.0 [facility] Comment on above: Performed By: #### U MICRO, ERUR #### [facility] [address] [place] [address] Dr. Etienne Fitch HCT 43.5 % Normal 42.0-54.0 [facility] Comment on above: Performed By: #### U MICRO, ERUR #### [facility] [address] [place] [address] Dr. Etienne Fitch HGB 14.3 g/dl Normal 14.0-18.0 [facility] Comment on above: Result Comment: gett ing fluids Performed By: #### U MICRO, ERUR #### [facility] [address] [place] [address] Dr. Etienne Fitch LYMPHM # 3.30 103/ul Normal 1.20-3.80 [facility] Comment on above: Performed By: #### U MICRO, ERUR #### [facility] [address] [place] [address] Dr. Etienne Fitch LYMPHM% 20.0 % Critically low 20.5-60.0 [facility] Comment on above: Performed By: #### U MICRO, ERUR #### [facility] [address] [place] [address] Dr. Etienne Fitch MCH 30.9 pg Normal 25.9-34.0 [facility] Comment on above: Performed By: #### U MICRO, ERUR #### [facility] [address] [place] [address] Dr. Etienne Fitch MCHC 32.9 g/dl Normal 29.9-35.2 [facility] Comment on above: Performed By: #### U MICRO, ERUR #### [facility] [address] [place] [address] Dr. Etienne Fitch MCV 94.0 fL Normal 80.0-94.0 [facility] Comment on above: Performed By: #### U MICRO, ERUR #### [facility] [address] [place] [address] Dr. Etienne Fitch METAMYELOCYTE # Normal [facility] Comment on above: Performed By: #### U MICRO, ERUR #### [facility] [address] [place] [address] Dr. Etienne Fitch METAMYELOCYTE % Normal [facility] Comment on above: Performed By: #### U MICRO, ERUR #### [facility] [address] [address] [address] Etienne Fitch MONOM# 2.31 103/ul Critically high 0.30-0.80 [facility] Comment on above: Performed By: #### U MICRO, ERUR #### [facility] [address] [place] [address] Dr. Etienne Fitch MONOM% 14.0 % Critically high 1.7-12.0 [facility] Comment on above: Performed By: #### U MICRO, ERUR #### [facility] [address] [place] [address] Dr. Etienne Fitch MPV 10.5 fL Normal 9.5-13.5 [facility] Comment on above: Performed By: #### U MICRO, ERUR #### [facility] [address] [place] [address] Dr. Etienne Fitch MYELOCYTE # Normal [facility] Comment on above: Performed By: #### U MICRO, ERUR #### [facility] [address] [address] [address] Etienne Fitch MYELOCYTE % Normal [facility] Comment on above: Performed By: #### U MICRO, ERUR #### [facility] [address] [place] [address] Dr. Etienne Fitch NRBC Normal [facility] Comment on above: Performed By: #### U MICRO, ERUR #### [facility] [address] [address] [address] Etienne Fitch PLT 285 103/ul Normal 150-450 [facility] Comment on above: Performed By: #### U MICRO, ERUR #### [facility] [address] [address] [address] Etienne Fitch RBC 4.63 106/ul Critically low 4.70-6.10 [facility] Comment on above: Performed By: #### U MICRO, ERUR #### [facility] [address] [place] [address] Dr. Etienne Fitch RDW 12.8 % Normal 11.0-15.0 [facility] Comment on above: Performed By: #### U MICRO, ERUR #### [facility] [address] [address] [address] Etienne Fitch SEG # 10.89 103/ul Critically high 1.40-6.50 [facility] Comment on above: Performed By: #### U MICRO, ERUR #### [facility] [address] [address] [address] Etienne Fitch SEG % 66.0 % Normal 43.0-75.0 [facility] Comment on above: Performed By: #### U MICRO, ERUR #### [facility] [address] [place] [address] Dr. Etienne Fitch TOXIC GRANULATION 1+ Normal [facility] Comment on above: Performed By: #### U MICRO, ERUR #### [facility] [address] [place] [address] Dr. Etienne Fitch WBC 16.5 103/ul Critically high 4.0-11.0 [facility] Comment on above: Performed By: #### U MICRO, ERUR #### [facility] [address] [place] [address] Dr. Etienne Fitch PROF 14(COMP METB)on 022 Albumin [Mass/Vol] 3.2 g/dL Critically low 3.4-5.0 [facility] Comment on above: Performed By: #### L ACT #### [facility] [address] [place] [address] Dr. Etienne Fitch Albumin/Globulin [Mass ratio] 1.1 {ratio} Normal [facility] Comment on above: Performed By: #### L ACT #### [facility] [address] [place] [address] Dr. Etienne Fitch ALP [Catalytic activity/Vol] 55 U/L Normal 46-116 [facility] Comment on above: Performed By: #### L ACT #### [facility] [address] [place] [address] Dr. Etienne Fitch ALT [Catalytic activity/Vol] 28 U/L Normal 16-63 [facility] Comment on above: Performed By: #### L ACT #### [facility] [address] [address] [address] Etienne Fitch Anion gap [Moles/Vol] 12.6 mmol/L Normal [facility] Comment on above: Performed By: #### L ACT #### [facility] [address] [address] [address] Etienne Fitch AST [Catalytic activity/Vol] 20 U/L Normal 15-37 [facility] Comment on above: Performed By: #### L ACT #### [facility] [address] [address] [address] Etienne Fitch Bilirubin [Mass/Vol] 2.8 mg/dL Critically high 0.2-1.0 [facility] Comment on above: Performed By: #### L ACT #### [facility] [address] [place] [address] Dr. Etienne Fitch Calcium [Mass/Vol] 7.8 mg/dL Critically low 8.5-10.1 [facility] Comment on above: Performed By: #### L ACT #### [facility] [address] [address] [address] Etienne Fitch Chloride [Moles/Vol] 104 mmol/L Normal 98-107 [facility] Comment on above: Performed By: #### L ACT #### [facility] [address] [address] [address] Etienne Fitch CO2 [Moles/Vol] 28.0 mmol/L Normal 21.0-32.0 [facility] Comment on above: Performed By: #### L ACT #### [facility] [address] [address] [address] Etienne Fitch Creatinine [Mass/Vol] 0.97 mg/dL Normal 0.70-1.30 [facility] Comment on above: Performed By: #### L ACT #### [facility] [address] [address] [address] Etienne Fitch EGFR-AF FRENCH >60 Normal >=60 [facility] Comment on above: Performed By: #### L ACT #### [facility] [address] [place] [address] Dr. Etienne Fitch EGFR-NON AF FRENCH >60 Normal >=60 [facility] Comment on above: Performed By: #### L ACT #### [facility] [address] [address] [address] Etienne Fitch Globulin (S) [Mass/Vol] 2.9 g/dL Normal [facility] Comment on above: Performed By: #### L ACT #### [facility] [address] [address] [address] Etienne Fitch Glucose [Mass/Vol] 108 mg/dL Critically high 74-106 [facility] Comment on above: Performed By: #### L ACT #### [facility] [address] [place] [address] Dr. Etienne Fitch Potassium [Moles/Vol] 3.6 mmol/L Normal 3.5-5.1 [facility] Comment on above: Performed By: #### L ACT #### [facility] [address] [place] [address] Dr. Etienne Fitch Protein [Mass/Vol] 6.1 g/dL Critically low 6.4-8.2 [facility] Comment on above: Performed By: #### L ACT #### [facility] [address] [place] [address] Dr. Etienne Fitch Sodium [Moles/Vol] 141 mmol/L Normal 136-145 [facility] Comment on above: Performed By: #### L ACT #### [facility] [address] [address] [address] Etienne Fitch Urea nitrogen [Mass/Vol] 33.0 mg/dL Critically high 7.0-18.0 [facility] Comment on above: Performed By: #### L ACT #### [facility] [address] [place] [address] Dr. Etienne Fitch Urea nitrogen/Creatini ne [Mass ratio] 34.0 mg/mg Normal [facility] Comment on above: Performed By: #### L ACT #### [facility] [address] [place] [address] Dr. Etienne Fitch US SINGLE QUAD RT [...] ALEXA HOWARD Date: 2022-04-02 09:08 Normal [facility] CBC AUTO DIFFon 04-01-2022 BASO # 0.1 103/ul Normal 0.0-0.1 [facility] Comment on above: Performed By: #### U MICRO, ERUR #### [facility] [address] [address] [address] Etienne Fitch Basophils/100 WBC (Bld) 0.4 % Normal 0.2-2.0 [facility] Comment on above: Performed By: #### U MICRO, ERUR #### [facility] [address] [place] [address] Dr. Etienne Fitch EO # 0.0 103/ul Normal 0.0-0.7 [facility] Comment on above: Performed By: #### U MICRO, ERUR #### [facility] [address] [address] [address] Etienne Fitch Eosinophils/100 WBC (Bld) 0.0 % Critically low 0.9-7.0 [facility] Comment on above: Performed By: #### U MICRO, ERUR #### [facility] [address] [place] [address] Dr. Etienne Fitch Erythrocyte distribution width (RBC) [Ratio] 12.8 % Normal 11.0-15.0 [facility] Comment on above: Performed By: #### U MICRO, ERUR #### [facility] [address] [place] [address] Dr. Etienne Fitch Hematocrit (Bld) [Volume fraction] 55.1 % Critically high 42.0-54.0 [facility] Comment on above: Performed By: #### U MICRO, ERUR #### [facility] [address] [place] [address] Dr. Etienne Fitch Hemoglobin (Bld) [Mass/Vol] 18.3 g/dL Critically high 14.0-18.0 [facility] Comment on above: Performed By: #### U MICRO, ERUR #### [facility] [address] [place] [address] Dr. Etienne Fitch IG # 0.11 10e3/ul Critically high 0.00-0.03 [facility] Comment on above: Performed By: #### U MICRO, ERUR #### [facility] [address] [place] [address] Dr. Etienne Fitch IG % 0.5 % Normal 0.0-0.5 [facility] Comment on above: Performed By: #### U MICRO, ERUR #### [facility] [address] [place] [address] Dr. Etienne Fitch LYMPH # 1.2 103/ul Normal 1.2-3.8 [facility] Comment on above: Performed By: #### U MICRO, ERUR #### [facility] [address] [place] [address] Dr. Etienne Fitch Lymphocytes/100 WBC (Bld) 5.7 % Critically low 20.5-60.0 [facility] Comment on above: Performed By: #### U MICRO, ERUR #### [facility] [address] [place] [address] Dr. Etienne Fitch MANUAL DIFF REQ NO Normal [facility] Comment on above: Performed By: #### U MICRO, ERUR #### [facility] [address] [place] [address] Dr. Etienne Fitch MCH (RBC) [Entitic mass] 30.7 pg Normal 25.9-34.0 [facility] Comment on above: Performed By: #### U MICRO, ERUR #### [facility] [address] [place] [address] Dr. Etienne Fitch MCHC (RBC) [Mass/Vol] 33.2 g/dL Normal 29.9-35.2 [facility] Comment on above: Performed By: #### U MICRO, ERUR #### [facility] [address] [place] [address] Dr. Etienne Fitch MCV (RBC) [Entitic vol] 92.3 fL Normal 80.0-94.0 [facility] Comment on above: Performed By: #### U MICRO, ERUR #### [facility] [address] [place] [address] Dr. Etienne iFtch MONO # 1.6 103/ul Critically high 0.3-0.8 [facility] Comment on above: Performed By: #### U MICRO, ERUR #### [facility] [address] [place] [address] Dr. Etienne Fitch Monocytes/100 WBC (Bld) 7.4 % Normal 1.7-12.0 [facility] Comment on above: Performed By: #### U MICRO, ERUR #### [facility] [address] [place] [address] Dr. Etienne Fitch NEUT # 18.6 103/ul Critically high 1.4-6.5 [facility] Comment on above: Performed By: #### U MICRO, ERUR #### [facility] [address] [place] [address] Dr. Etienne Fitch Neutrophils/100 WBC (Bld) 86.0 % Critically high 43.0-75.0 [facility] Comment on above: Performed By: #### U MICRO, ERUR #### [facility] [address] [place] [address] Dr. Etienne Fitch Platelet mean volume (Bld) [Entitic vol] 10.3 fL Normal 9.5-13.5 [facility] Comment on above: Performed By: #### U MICRO, ERUR #### [facility] [address], [place] [address] Dr. Etienne Fitch PLT 447 103/ul Normal 150-450 [facility] Comment on above: Performed By: #### U MICRO, ERUR #### [facility] [address], [place] [address] Dr. Etienne Fitch RBC 5.97 106/ul Normal 4.70-6.10 [facility] Comment on above: Performed By: #### U MICRO, ERUR #### [facility] [address], [place] [address] Dr. Etienne Fitch WBC 21.6 103/ul Critically high 4.0-11.0 [facility] Comment on above: Performed By: #### U MICRO, ERUR #### [facility] [address], [place] [address] ABD/PELV W CONon [...] ALEXA HOWARD Date: 2022-04-01 15:11 Normal [facility] Covid-19 PCR (CVDTBH)on SARS-CoV-2 (COVID-19) RNA KWABENA+probe Ql (Unsp spec) Not detected Normal NOT DETECTED [facility] Comment on above: Result Comment: When diagnostic [...] for this test is supported by the [place] of Health and Human Service's declaration that [...] used). Performed By: #### C VDTBH #### [facility] [address] [place] [address] Dr. Etienne Fitch ER URINE PROFILEon 2 Bilirubin Ql (U) MODERATE Abnormal NEGATIVE [facility] Comment on above: Performed By: #### U MICRO, ERUR #### [facility] [address] [place] [address] Dr. Etienne Fitch Clarity (U) CLEAR Normal CLEAR [facility] Comment on above: Performed By: #### U MICRO, ERUR #### [facility] [address] [place] [address] Dr. Etienne Fitch Color (U) DK. ORANGE Abnormal YELLOW [facility] Comment on above: Performed By: #### U MICRO, ERUR #### [facility] [address] [place] [address] Dr. Etienne Fitch ERUAHD A micrscopic examina tion will be performed if indicated. Normal [facility] Comment on above: Performed By: #### U MICRO, ERUR #### [facility] [address] [address] [address] Etienne Fitch Glucose Ql (U) Negative Normal NEGATIVE [facility] Comment on above: Performed By: #### U MICRO, ERUR #### [facility] [address] [address] [address] Etienne Fitch Hemoglobin Ql (U) Negative Normal NEGATIVE [facility] Comment on above: Performed By: #### U MICRO, ERUR #### [facility] [address] [place] [address] Dr. Etienne Fitch Ketones Ql (U) Negative Normal NEGATIVE [facility] Comment on above: Performed By: #### U MICRO, ERUR #### [facility] [address] [place] [address] Dr. Etienne Fitch LEUKOCYTES Negative Normal NEGATIVE [facility] Comment on above: Performed By: #### U MICRO, ERUR #### [facility] [address] [address] [address] Etienne Fitch Nitrite Ql (U) Negative Normal NEGATIVE [facility] Comment on above: Performed By: #### U MICRO, ERUR #### [facility] [address] [place] [address] Dr. Etienne Fitch pH (U) 5.5 [pH] Normal 5-9 [facility] Comment on above: Performed By: #### U MICRO, ERUR #### [facility] [address] [place] [address] Dr. Etienne Fitch Protein (U) [Mass/Vol] 100 mg/dL Abnormal NEGATIVE/ TRACE [facility] Comment on above: Performed By: #### U MICRO, ERUR #### [facility] [address] [place] [address] Dr. Etienne Fitch SPEC GRAVITY >=1.030 Abnormal 1.005-<=1.[address] [place] [address] Comment on above: Performed By: #### U MICRO, ERUR #### [facility] [address] [place] [address] Dr. Etienne Fitch UR MICRO IND INDICATED Normal [facility] Comment on above: Performed By: #### U MICRO, ERUR #### [facility] [address] [place] [address] Dr. Etienne Fitch Urobilinogen Qn (U) 1.0 {Nesha'U}/dL Normal 0.2 - 1.0 [facility] Comment on above: Performed By: #### U MICRO, ERUR #### [facility] [address] [place] [address] Dr. Etienne Fitch LACTATE/LACTIC ACIDon 2021 Lactate [Moles/Vol] 1.8 mmol/L Normal 0.4-1.9 [facility] Comment on above: Performed By: #### U MICRO, ERUR #### [facility] [address] [place] [address] Dr. Etienne Fitch Lactate [Moles/Vol] 2.3 mmol/L Critically high 0.4-1.9 [facility] Comment on above: Result Comment: repe ated Performed By: #### L ACT #### [facility] [address] [place] [address] Dr. Etienne Fitch LIPASEon 04-01-2022 Lipase [Catalytic activity/Vol] 32.0 U/L Critically low 73.0-393.0 [facility] Comment on above: Performed By: #### U MICRO, ERUR #### [facility] [address] [place] [address] Dr. Etienne Fitch PROF 14(COMP METB)on 022 Albumin [Mass/Vol] 4.9 g/dL Normal 3.4-5.0 [facility] Comment on above: Performed By: #### U MICRO, ERUR #### [facility] [address] [place] [address] Dr. Etienne Fitch Albumin/Globulin [Mass ratio] 1.2 {ratio} Normal [facility] Comment on above: Performed By: #### U MICRO, ERUR #### [facility] [address] [place] [address] Dr. Etienne Fitch ALP [Catalytic activity/Vol] 82 U/L Normal 46-116 [facility] Comment on above: Performed By: #### U MICRO, ERUR #### [facility] [address] [address] [address] Etienne Fitch ALT [Catalytic activity/Vol] 37 U/L Normal 16-63 [facility] Comment on above: Performed By: #### U MICRO, ERUR #### [facility] [address] [address] [address] Etienne Fitch Anion gap [Moles/Vol] 13.2 mmol/L Normal [facility] Comment on above: Performed By: #### U MICRO, ERUR #### [facility] [address] [address] [address] Etienne Fitch AST [Catalytic activity/Vol] 31 U/L Normal 15-37 [facility] Comment on above: Performed By: #### U MICRO, ERUR #### [facility] [address] [address] [address] Etienne Fitch Bilirubin [Mass/Vol] 4.8 mg/dL Critically high 0.2-1.0 [facility] Comment on above: Performed By: #### U MICRO, ERUR #### [facility] [address] [address] [address] Etienne Fitch Calcium [Mass/Vol] 9.8 mg/dL Normal 8.5-10.1 [facility] Comment on above: Performed By: #### U MICRO, ERUR #### [facility] [address] [address] [address] Etienne Fitch Chloride [Moles/Vol] 98 mmol/L Normal 98-107 [facility] [facility] Comment on above: Performed By: #### U MICRO, ERUR #### [facility] [address] [address] [address] Etienne Fitch CO2 [Moles/Vol] 31.2 mmol/L Normal 21.0-32.0 [facility] Comment on above: Performed By: #### U MICRO, ERUR #### [facility] [address] [address] [address] Etienne Fitch Creatinine [Mass/Vol] 1.63 mg/dL Critically high 0.70-1.30 [facility] Comment on above: Performed By: #### U MICRO, ERUR #### [facility] [address] [address] [address] Etienne Fitch EGFR-AF FRENCH 56 mL/min/1.73m2 Critically low >=60 [facility] Comment on above: Performed By: #### U MICRO, ERUR #### [facility] [address] [address] [address] Etienne Fitch EGFR-NON AF FRENCH 46 mL/min/1.73m2 Critically low >=60 [facility] Comment on above: Performed By: #### U MICRO, ERUR #### [facility] [address] [address] [address] Etienne Fitch Globulin (S) [Mass/Vol] 4.1 g/dL Normal [facility] Comment on above: Performed By: #### U MICRO, ERUR #### [facility] [address] [address] [address] Etienne Fitch Glucose [Mass/Vol] 142 mg/dL Critically high 74-106 [facility] Comment on above: Performed By: #### U MICRO, ERUR #### [facility] [address] [place] [address] Dr. Etienne Fitch Potassium [Moles/Vol] 3.4 mmol/L Critically low 3.5-5.1 [facility] Comment on above: Performed By: #### U MICRO, ERUR #### [facility] [address] [place] [address] Dr. Etienne Fitch Protein [Mass/Vol] 9.0 g/dL Critically high 6.4-8.2 [facility] Comment on above: Performed By: #### U MICRO, ERUR #### [facility] [address] [place] [address] Dr. Etienne Fitch Sodium [Moles/Vol] 139 mmol/L Normal 136-145 [facility] Comment on above: Performed By: #### U MICRO, ERUR #### [facility] [address] [address] [address] Etienne Fitch Urea nitrogen [Mass/Vol] 40.0 mg/dL Critically high 7.0-18.0 [facility] Comment on above: Performed By: #### U MICRO, ERUR #### [facility] [address] [address] [address] Etienne Fitch Urea nitrogen/Creatini ne [Mass ratio] 24.5 mg/mg Normal [facility] Comment on above: Performed By: #### U MICRO, ERUR #### [facility] [address] [address] [address] Etienne Fitch TROPONIN, HIGH SENSITIVITYon 04-01-2022 HSTROP 44.4 pg/mL Normal 4.0-76.1 [facility] Comment on above: Result Comment: CUT- OFF POINTS HAVE BEEN ESTABLISHED BASED ON THE FOURTH UNIVERSAL DEFINITIONS OF MYOCARDIAL INFARCTION. THE UPPER REFERENCE LIMIT (URL) OF TROPONIN, DEFINED THE 99TH PERCENTILE OF cTnI DISTRIBUTION IN A REFERENCE POPULATION, HAS BEEN CONFIRMED THE DECISION THRESHOLD FOR VT DIAGNOSIS. Performed By: #### U MICRO, ERUR #### [facility] [address] [place] [address] Dr. Etienne Fitch URINE MICROSCOPIC ONLYon BACTERIA NONE SEEN Normal NONE SEEN [facility] Comment on above: Performed By: #### U MICRO, ERUR #### [facility] [address] [place] [address] Dr. Etienne Fitch Bacteria identified Cx Nom (U) NOT INDICATED Normal [facility] Comment on above: Performed By: #### U MICRO, ERUR #### [facility] [address] [address] [address] Etienne Fitch CAST SEEN Abnormal NONE SEEN [facility] Comment on above: Performed By: #### U MICRO, ERUR #### [facility] [address] [address] [address] Etienne Fitch Crystals LM Nom (Urine sed) NONE SEEN Normal NONE SEEN [facility] Comment on above: Performed By: #### U MICRO, ERUR #### [facility] [address] [place] [address] Dr. Etienne Fitch Epithelial cells LM Ql (Urine sed) NONE SEEN Normal NONE SEEN /RARE [facility] Comment on above: Performed By: #### U MICRO, ERUR #### [facility] [address] [address] [address] Etienne Fitch MUCOUS NONE SEEN Normal NONE SEEN [facility] Comment on above: Performed By: #### U MICRO, ERUR #### [facility] [address] [address] [address] Etienne Fitch RBC NONE SEEN Abnormal 0-2 [facility] Comment on above: Performed By: #### U MICRO, ERUR #### [facility] [address] [address] [address] Etienne Fitch WBC 0-2 Abnormal NONE SEEN [facility] Comment on above: Performed By: #### U MICRO, ERUR #### [facility] [address] [address] [address] Etienne Fitch Vital Signs Date Time Vital Sign Value Performing Clinician Faci emanuely 07-02-2022 13:15-0400 Blood Pressure Location [facility] (acquired by [employer] in 2014) [facility] 07-02-2022 13:15-0400 Diastolic blood pressure 74 mm[Hg] [facility] (acquired by [employer] in 2014) [facility] 07-02-2022 13:15-0400 Heart rate 72 /min [facility] 07-02-2022 13:15-0400 Respiratory rate 16 /min [facility] (acquired by [employer] in 2014) [facility] [place] 07-02-2022 13:15-0400 Systolic blood pressure 120 mm[Hg] [facility] (acquired by [employer] in 2014) [facility] Encounters Encounter Date Encounter Type Care Provider Facility Start: 02-07-2023 Encounter for genera l adult medical examination without abnormal findings [facility] Start: 01-29-2023 End: 01-30-2023 ambulatory [facility] Facility:[facility]1 Start: 01-29-2023 End: 01-30-2023 Encounter for general adult medical examination without abnormal findings [facility] Facility:[facility]1 Start: 12-18-2022 End: 12-19-2022 ambulatory MAKENZIE Dedrick JOHNNY Facility:[facility] Start: 12-12-2022 End: 12-12-2022 ambulatory EVELYN GLASER . Facility: Start: 08-07-2022 ambulatory Anupam POOLE Facility :[facility] Start: 08-07-2022 End: 08-07-2022 Patient encounter procedure Anupam POOLE [facility] Start: 07-24-2022 Encounter for preprocedural laboratory examination DR ANUPAM POOLE . [facility] Start: 07-24-2022 End: 07-25-2022 ambulatory Anupam POOLE Facility:[id number] Start: 07-20-2022 End: 07-21-[address] ANUPAM POOLE . Facility: Start: 07-20-2022 End: 07-21-2022 Encounter for preprocedural laboratory examination DR ANUPAM POOLE . Facility: Start: 07-17-2022 End: 07-18-[address] ANUPAM POOLE . Facility: Start: 07-02-2022 End: 07-03-2022 ambulatory Anupam POOLE Facility:[facility] Start: 07-02-2022 End: 07-02-2022 Patient encounter procedure Anupam POOLE [facility] Start: 06-15-2022 End: 06-15-2022 ambulatory EVELYN GLASER . Facility: Start: 04-23-2022 ambulatory Anupam POOLE Facility :[facility] Start: 04-02-2022 ambulatory Anupam POOLE Facility :[facility] Start: 04-01-2022 End: 04-02-[address] ALEXA HOWARD Facility: Procedures Date Procedure Procedure Detail Performing Clinician Start: 07-24-2022 Colonoscopy Anupam ELLIOTT Start: 07-24-2022 Esophagogastroduodenoscopy Anupam POOLE None (qualifier value) Elias POOLE Payers Date Payer Category Payer Unknown [id number] 2.16.8 [id number] 1980 Unknown [id number] 2.16.8 [id number] 1978 Unknown [id number] 2.16.8 [id number] 1978 Unknown [id number] 2.16.8 [id number] 1978 Unknown [id number] 2.16.84 [id number] 1978 Unknown [id number] 2.16.84 [id number] 1978 Unknown [id number] 2.16.84 [id number] 1978 Unknown [id number] 2.16.84 [id number] 1978 Unknown [id number] 2.16.84 [id number] 1978 Unknown [id number] 2.16.84 [id number] 1978 Unknown [id number] 2.16.84 [id number] 1978 Unknown [id number] 2.16.84 [id number] 1959 Unknown [id number] Social History Date Type Detail Facility Start: 07-02-2022 Tobacco smoking status Ex-smoker (fi nding) [facility] Tobacco smoking status Smokeless tobacco user within last 30 days [facility] Sex Assigned At Male [facility] Functional Status Date Assessment Result Facility 07-02-2022 Functional Status N/A [facility] Clinical Note 07-24-2022 Note Date & Type [...] in good condition. CC: Family physician [facility] Clinical Note 07-02-2022 Note Date & Type Note Facility 07-02-2022 Note Chief Complaint consultation for ABD pain HPI Staff 41 year old male presents on consultation from [facility] ED for abdominal pain. Presented to ED [...] Allergies No K (more content not included)... [facility] Comment on above: Result Comment: Elec tronically Signed By: SAMIR MOCK, Anupam Thompson\Date and Time Signed: 07/02/22 21:30 EDT History and physical note 04-03-2022 Note Date & Type Note Facility 04-03-2022 Note [id number] #[id number] [facility] Evaluation + Plan note Note Date & Type Note Facility Evaluation + Plan note No data available for this section [facility] Discharge instructions Note Date & Type Note Facility Hospital Discharge instructions No data available for this section [facility] Progress note Note Date & Type Note Facility Progress note No data available for this section [facility] Summary Purpose Family History No Family History Records FoundNo Family History Records Found Advance Directives No Advanced Directives Records FoundNo Advanced Directives Records Found Additional Source Comments Care Team (unrecognized sect ion and content) Personnel Name: RANJANA TRAYLOR MD Address: [address] [place] [id number] Personnel Name: RANJANA TRAYLOR MD Address: Address: [address] [place], [place] [id number] [address] (unrecognized sect ion and content) No Status Records FoundNo Status Records Found INFORMATION SOURCE (unrecogn ized section and content) DATE CREATED AUTHOR 08/07/2022 [facility] DATE CREATED AUTHOR AUTHOR'Shyann LOPEZ 02/08/2023 [...] BE BASED ON THE PRIMARY CLINICAL RECORDS. [facility] provides no warranty or guarantee of the accuracy or completeness of information in this document.
--- NOTE | 2024-07-16 20:02 | ED.GENADUL1 ---
HPI HPI - General Adult General Chief complaint: Abdominal Pain Stated complaint: Abdominal Pain Time Seen by Provider: 07/16/24 19:58 Source: patient Mode of arrival: walk-in History of Present Illness HPI narrative: patient presents complaining of repeated vomiting related to cannabis hyperemesis. States last episode was about 4-6 months ago. No diarrhea. No fever. Abdomen is sore. last use of marijuana 3 days ago Related Data Home Medications ?Medication ?Instructions ?Recorded ?Confirmed olanzapine 2.5 mg tablet 2.5 mg PO BEDTIME 07/16/23 07/16/24 fluoxetine 60 mg tablet 60 mg PO QPM 11/04/23 07/16/24 omeprazole 20 mg capsule,delayed 20 mg PO DAILY 07/16/24 07/16/24 release Previous Rx's ?Medication ?Instructions ?Recorded amlodipine 10 mg tablet (Norvasc) 10 mg PO DAILY #30 tabs 05/23/24 Allergies Allergy/AdvReac Type Severity Reaction Status Date / Time No Known Drug Allergies Allergy Verified 05/22/24 19:38 Opioid HPI Opioid Management Most Recent Opioid Data: Last Pain Scale 1 05/23/24 13:00 Last ORT Total Score 12 05/23/24 02:24 Last ORT Risk Category High Risk 05/23/24 02:24 Ur Phencyclidine Scrn Negative (NEGATIVE) 05/22/24 19:44 Review of Systems ROS Status of ROS 10 or more systems reviewed and unremarkable except as noted in history and below [facility] Medical History (Updated 05/27/24 @ 00:00 by ) Emphysema of lung ?J43.9 - Emphysema, unspecified (ICD-10) Cannabis hyperemesis syndrome concurrent with and due to cannabis abuse ?F12.188 - Cannabis abuse with other cannabis-induced disorder (ICD-10) Marijuana abuse, continuous ?F12.10 - Cannabis abuse, uncomplicated (ICD-10) Hyperbilirubinemia ?E80.6 - Other disorders of bilirubin metabolism (ICD-10) Elevated liver enzymes ?R74.8 - Abnormal levels of other serum enzymes (ICD-10) Abdominal pain ?R10.9 - Unspecified abdominal pain (ICD-10) Nausea and vomiting ?R11.2 - Nausea with vomiting, unspecified (ICD-10) Abdominal pain ?R10.9 - Unspecified abdominal pain (ICD-10) Pneumonia ?J18.9 - Pneumonia, unspecified organism (ICD-10) Benign essential HTN ?I10 - Essential (primary) hypertension (ICD-10) Anxiety ?F41.9 - Anxiety disorder, unspecified (ICD-10) Bipolar 1 disorder ?F31.9 - Bipolar disorder, unspecified (ICD-10) Family History (Updated 02/06/24 @ 04:58 by Kelsie Fitch RN) Father Family history of CHF (congestive heart failure) Family history of hypertension Family history of myocardial infarction Family history of stroke Grandfather Family history of cancer Family history of myocardial infarction Family history of stroke Uncle Family history of cancer Grandmother Family history of diabetes mellitus Social History Within the past year, how often did you have a drink containing alcohol: never Within the past year, how often did you have six or more drinks on one occasion: never Score interpretation: A score less than 4 is consistent with normal alcohol consumption. Smoking status: Current every day smoker Do you use any of these nicotine containing products: vaping products Non-prescribed substance use: cannabis (any form) Highest level of school completed/degree received: high school graduate Are you now , , , , never or living with a partner: In a typical week, how many times do you talk on the telephone with family, friends, or neighbors: 3 or more times per week How often do you get together with friends or relatives: 3 or more times per week How often do you attend [employer] or judaism services: never Little interest or pleasure in doing things: not at all Feeling down, depressed, or hopeless: not at all Feel stressed/tense/nervous/anxious/difficulty sleeping: to some extent Do you think of yourself as: straight/heterosexual Gender Identity: male Exam Constitutional Vital Signs, click to edit/add: Last Vital Signs Temp 97.9 F 07/16/24 19:36 Pulse 90 07/16/24 21:41 Resp 20 07/16/24 21:41 BP 168/110 H 07/16/24 21:41 Pulse Ox 100 07/16/24 21:41 O2 Del Method Room Air 07/16/24 21:41 Common normals: no apparent distress (mild distress. Appears uncomfortabe), average body habitus, oriented x3, no limitations, healthy appearing, alert and well nourished [facility] Common normals: normocephalic and head/scalp atraumatic Eye Common normals: EOMs intact bilaterally and conjunctivae normal Respiratory Common normals: normal respiratory effort, no retractions, no use of accessory muscles and clear to auscultation bilaterally Cardio Common normals: S1 normal heart sound and S2 normal heart sound Rate: tachycardic GI Other: abdomen soft with mild gen. tenderness. no guarding Extremity Common normals: normal to inspection and full ROM Neuro Common normals: oriented x3, CN's II-XII intact bilaterally, moves all extremities and no focal motor deficits Psych Appearance: grossly normal Course Vital Signs Vital signs: Vital Signs Temperature 97.9 F 07/16/24 19:36 Pulse Rate 104 H 07/16/24 19:36 Respiratory Rate 20 07/16/24 19:36 Blood Pressure 150/90 H 07/16/24 19:36 Pulse Oximetry 97 07/16/24 19:36 Oxygen Delivery Method Room Air 07/16/24 19:36 Temperature 97.9 F 07/16/24 19:36 Pulse Rate 90 07/16/24 21:41 Respiratory Rate 20 07/16/24 21:41 Blood Pressure 168/110 H 07/16/24 21:41 Pulse Oximetry 100 07/16/24 21:41 Oxygen Delivery Method Room Air 07/16/24 21:41 Medical Decision Making [facility] Narrative Medical decision making narrative: patient presents with cyclical vomiting from marijuana use. Nausea controlled with zofran. Labs reveal elevated WBC , acute renal failure. xray of abdomen without signs of obstruction. Nausea improved afte zofran and he is sipping on H20. Discussed labs with hospitalist. Patient accepted for in patient admission Lab Data Labs: Lab Results 07/16/24 07/16/24 Range/Units 20:30 21:23 WBC 28.8 H (4.0-11.0) 10^3/uL RBC 5.95 (4.70-6.10) 10^6/uL Hgb 17.8 (14.0-18.0) g/dL Hct 54.3 H (42.0-54.0) % MCV 91.3 (80.0-94.0) fL MCH 29.9 (25.9-34.0) pg MCHC 32.8 (29.9-35.2) g/dL RDW 13.6 (11.0-15.0) % Plt Count 592 H (150-450) 10^3/uL MPV 10.5 (9.5-13.5) fL Seg Neuts % (Manual) 80.0 H (43.0-75.0) Lymphocytes % (Manual) 4.0 L (20.5-60.0) % Atypical Lymphs % (Man) 7.0 % Monocytes % (Manual) 9.0 (1.7-12.0) % Eosinophils % (Manual) 0.0 L (0.9-7.0) % Basophils % (Manual) 0.0 L (0.2-2.0) % Neutrophils # (Manual) 23.04 H (1.4-6.5) 10^3/uL Lymphocytes # (Manual) 1.15 L (1.20-3.80) 10^3/uL Abs Atypical Lymphs Man 2.01 Monocytes # (Manual) 2.59 H (0.30-0.80) 10^3/uL Eosinophils # (Manual) 0.00 (0.00-0.70) 10^3/uL Basophils # (Manual) 0.00 (0.00-0.10) 10^3/uL Hypersegmented Neuts 2+ Toxic Vacuolation 1+ Sodium 149 H (136-145) mmol/L Potassium 3.7 (3.5-5.1) mmol/L Chloride 104 (98-107) mmol/L Carbon Dioxide 28.4 (21.0-32.0) mmol/L Anion Gap 20.3 BUN 83.0 H* (7.0-18.0) mg/dL Creatinine 4.57 H (0.70-1.30) mg/dL Est GFR ( Amer) 17 L (>=60) Est GFR (Non-Af Amer) 14 L (>=60) BUN/Creatinine Ratio 18.2 Glucose 124 H (74-106) mg/dL Lactate 3.2 H* (0.4-2.0) mmol/L Calcium 9.8 (8.5-10.1) mg/dL Total Bilirubin 1.8 H (0.2-1.0) mg/dL AST 25 (15-37) U/L ALT 31 (16-63) U/L Alkaline Phosphatase 131 H (46-116) U/L Total Protein 9.7 H (6.4-8.2) g/dL Albumin 5.2 H (3.4-5.0) g/dL Globulin 4.5 g/dL Albumin/Globulin Ratio 1.2 Discharge Plan Discharge Chief Complaint: Abdominal Pain Clinical Impression: Acute renal failure, Cannabis abuse, Cyclical vomiting syndrome Patient Disposition: Admitted As Inpatient
--- NOTE | 2024-07-16 20:05 | XR_ITS ---
The [address] [address] Patient Name: GERALDINE RICCI MRN: [id number] date: 1980 Sex: M Assigned Patient Location: ER Current Patient Location: ED.MAIN Accession/Order Number: [id number] Exam Date: 07/16/2024 20:45 Report Date: 07/16/2024 21:57 At the request of: ROBERTA CHIRINOS Procedure: XR abdomen min 2V ABDOMINAL X-RAYS, 07/16/2024. HISTORY: Vomiting. COMPARISON: Abdominal x-rays, 05/22/2024. FINDINGS: Supine and upright views of the abdomen obtained. There is no free air. A normal nonobstructive bowel gas pattern is noted. No fecal impaction in the rectum. No air-fluid levels. No pathologic calcification. Osseous structures are unremarkable. XR/XR abdomen min 2V IMPRESSION: 1. No evidence of bowel obstruction. No free air. No air-fluid levels. 2. No pathologic calcifications. Electronically authenticated by: DASHA MENCHACA Date: 07/16/2024 21:57
[2024-07-16 20:43] LABS: Hematocrit 54.3 % (42.0-54.0); Hemoglobin 17.8 g/dL (14.0-18.0); Mean Corpuscular HGB Conc 32.8 g/dL (29.9-35.2); Mean Corpuscular Hemoglobin 29.9 pg (25.9-34.0); Mean Corpuscular Volume 91.3 fL (80.0-94.0); Mean Platelet Volume 10.5 fL (9.5-13.5); Platelet Count 592 10^3/uL (150-450); Red Blood Count 5.95 10^6/uL (4.70-6.10); Red Cell Distribution Width 13.6 % (11.0-15.0); White Blood Count 28.8 10^3/uL (4.0-11.0)
[2024-07-16] MEDS: 0.9 % SODIUM CHLORIDE 1,000 ML 999 ML IV ×2 (20:51→21:35)
[2024-07-16] MEDS: ONDANSETRON PF 4 MG/2 ML VIAL IV (20:51)
[2024-07-16 21:07] LABS: Atypical Lymphocytes Abs Man 2.01; Hypersegmented Neutrophils 2+; Lymphocytes Absolute Manual 1.15 10^3/uL (1.20-3.80); Monocytes Absolute Manual 2.59 10^3/uL (0.30-0.80); Segmented Neut Absolute Manual 23.04 10^3/uL (1.4-6.5)
[2024-07-16 21:08] LABS: Toxic Vacuolation 1+
[2024-07-16 21:14] LABS: Lactate/Lactic Acid 3.2 mmol/L (0.4-2.0)
[2024-07-16 21:41] VITALS: BP 168/110; PULSE 90; O2SAT 100
--- NOTE | 2024-07-16 21:44 | PC.NURSE ---
this nurse keeps finding pt drinking out of sink, this nurse asks pt to please stop drinking out of sink and stay in bed. Water will be taken to pt in a glass, pt apologies and states this is a comfort for him to drink out of sink.
[2024-07-16 21:45] LABS: Alanine Aminotransferase 31 U/L (16-63); Albumin Globulin Ratio 1.2; Albumin Level 5.2 g/dL (3.4-5.0); Alkaline Phosphatase 131 U/L (46-116); Anion Gap 20.3; Aspartate Amino Transferase 25 U/L (15-37); BUN Creatinine Ratio 18.2; Bilirubin Total 1.8 mg/dL (0.2-1.0); Calcium 9.8 mg/dL (8.5-10.1); Carbon Dioxide 28.4 mmol/L (21.0-32.0); Chloride 104 mmol/L (98-107); Estimated GFR (African America 17 (>=60); Estimated GFR (Non-African Ame 14 (>=60); Globulin 4.5 g/dL; Glucose 124 mg/dL (74-106); Potassium 3.7 mmol/L (3.5-5.1); Sodium 149 mmol/L (136-145); Total Protein 9.7 g/dL (6.4-8.2)
[2024-07-16] MEDS: HYDRALAZINE HCL 20 MG/ML VIAL 5 MG IVP ×2 (22:01→23:26)
--- OUTSIDE RECORDS SUMMARY | 2024-07-16 22:29 | XMS_ITS | CCD ---
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 Etienne Fitch Interpretation: Comment Normal [facility] Comment on above: Result Comment: Not infected with HCV unless early or acute infection is suspected (which may be delayed in an immunocompromised individual), or other evidence exists to indicate HCV infection. Performed By: #### L ACT #### [facility] [address] [place], [place] [address] Dr. Etienne Fitch HIV 1 AND 2 WITH REFLEXon HIV Screen 4th Generation wRfx Non-Reactive Normal Non Reactive [facility] Comment on above: Result Comment: HIV Negative HIV-1/HIV-2 antibodies and HIV-1 p24 antigen were NOT detected. There is no laboratory evidence of HIV infection. Performed By: #### H IV12 #### [facility] [address] [address] [address] Etienne Fitch LIPID PROFILEon 01-29-2023 CHOL-HDL RATIO NORM SEE BELOW Normal [facility] Comment on above: Result Comment: 3.3 - 4.4 LOW RISK 4.4 - 7.1 AVERAGE RISK 7.1 - 11.0 MODERATE RISK >11.0 HIGH RISK Performed By: #### U MICRO, ERUR #### [facility] [address] [address] [address] Etienne Fitch Cholesterol [Mass/Vol] 196 mg/dL Normal <=200 [facility] Comment on above: Performed By: #### U MICRO, ERUR #### [facility] [address] [address] [address] Etienne Fitch Cholesterol in HDL [Mass/Vol] 78 mg/dL Critically high 40-60 [facility] Comment on above: Performed By: #### U MICRO, ERUR #### [facility] [address] [address] [address] Etienne Fitch Cholesterol in LDL [Mass/Vol] 106.6 mg/dL Normal [facility] Comment on above: Performed By: #### U MICRO, ERUR #### [facility] [address] [address] [address] Etienne Fitch Cholesterol.total /Cholesterol in HDL [Mass ratio] 2.5 {ratio} Normal [facility] Comment on above: Performed By: #### U MICRO, ERUR #### [facility] [address] [address] [address] Etienne Fitch HDL NORMAL > or = 60 mg/dl - LO W CARDIOVASCULAR RISK <40 mg/dl - HIGH CARDIOVASCULAR RISK Normal [facility] Comment on above: Performed By: #### U MICRO, ERUR #### [facility] [address] [address] [address] Etienne Fitch LDL CALC NORMAL SEE BELOW Normal [facility] Comment on above: Result Comment: <100 mg/dl OPTIMAL 100 - 129 mg/dl NEAR OR ABOVE OPTIMAL 130 - 159 mg/dl BORDERLINE HIGH 160 - 189 mg/dl HIGH >190 mg/dl VERY HIGH Performed By: #### U MICRO, ERUR #### [facility] [address] [address] [address] Etienne Fitch Triglyceride [Mass/Vol] 57 mg/dL Normal <=150 [facility] Comment on above: Performed By: #### U MICRO, ERUR #### [facility] [address] [address] [address] Etienne Fitch VLDL CALC 11.4 mg/dL Normal [facility] Comment on above: Performed By: #### U MICRO, ERUR #### [facility] [address] [place] [address] Dr. Etienne Fitch PROF CHEM 8 (BAS METB)on Anion gap [Moles/Vol] 7.4 mmol/L Normal [facility] Comment on above: Performed By: #### U MICRO, ERUR #### [facility] [address] [address] [address] Etienne Fitch Calcium [Mass/Vol] 10.0 mg/dL Normal 8.5-10.1 [facility] Comment on above: Performed By: #### U MICRO, ERUR #### [facility] [address] [address] [address] Etienne Fitch Chloride [Moles/Vol] 101 mmol/L Normal 98-107 [facility] Comment on above: Performed By: #### U MICRO, ERUR #### [facility] [address] [address] [address] Etienne Fitch CO2 [Moles/Vol] 34.0 mmol/L Critically high 21.0-32.0 [facility] Comment on above: Performed By: #### U MICRO, ERUR #### [facility] [address] [place] [address] Dr. Etienne Fitch Creatinine [Mass/Vol] 1.27 mg/dL Normal 0.70-1.30 [facility] Comment on above: Performed By: #### U MICRO, ERUR #### [facility] [address] [address] [address] Etienne Fitch EGFR-AF ARGENTINE >60 Normal >=60 [facility] Comment on above: Performed By: #### U MICRO, ERUR #### [facility] [address] [address] [address] Etienne Fitch EGFR-NON AF ARGENTINE >60 Normal >=60 [facility] Comment on above: Performed By: #### U MICRO, ERUR #### [facility] [address] [address] [address] Etienne Fitch Glucose [Mass/Vol] 116 mg/dL Critically high 74-106 [facility] Comment on above: Performed By: #### U MICRO, ERUR #### [facility] [address] [address] [address] Etienne Fitch Potassium [Moles/Vol] 4.4 mmol/L Normal 3.5-5.1 [facility] Comment on above: Performed By: #### U MICRO, ERUR #### [facility] [address] [address] [address] Etienne Fitch Sodium [Moles/Vol] 138 mmol/L Normal 136-145 [facility] Comment on above: Performed By: #### U MICRO, ERUR #### [facility] [address] [address] [address] Etienne Fitch Urea nitrogen [Mass/Vol] 33.0 mg/dL Critically high 7.0-18.0 [facility] Comment on above: Performed By: #### U MICRO, ERUR #### [facility] [address] [address] [address] Etienne Fitch Urea nitrogen/Creatini ne [Mass ratio] 26.0 mg/mg Normal [facility] Comment on above: Performed By: #### U MICRO, ERUR #### [facility] [address] [address] [address] Etienne Fitch CBC AUTO DIFFon 12-12-2022 BASO # 0.0 103/ul Normal 0.0-0.1 [facility] Comment on above: Performed By: #### C BC #### [facility] [address] [address] [address] Etienne Fitch Basophils/100 WBC (Bld) 0.2 % Normal 0.2-2.0 [facility] Comment on above: Performed By: #### C BC #### [facility] [address] [address] [address] Etienne Fitch EO # 0.0 103/ul Normal 0.0-0.7 [facility] Comment on above: Performed By: #### C BC #### [facility] [address] [place] [address] Dr. Etienne Fitch Eosinophils/100 WBC (Bld) 0.1 % Critically low 0.9-7.0 [facility] Comment on above: Performed By: #### C BC #### [facility] [address] [place] [address] Dr. Etienne Fitch Erythrocyte distribution width (RBC) [Ratio] 12.8 % Normal 11.0-15.0 [facility] Comment on above: Performed By: #### C BC #### [facility] [address] [place] [address] Dr. Etienne Fitch Hematocrit (Bld) [Volume fraction] 55.0 % Critically high 42.0-54.0 [facility] Comment on above: Performed By: #### C BC #### [facility] [address] [place] [address] Dr. Etienne Fitch Hemoglobin (Bld) [Mass/Vol] 18.5 g/dL Critically high 14.0-18.0 [facility] Comment on above: Performed By: #### C BC #### [facility] [address] [place] [address] Dr. Etienne Fitch IG # 0.07 10e3/ul Critically high 0.00-0.03 [facility] Comment on above: Performed By: #### C BC #### [facility] [address] [place] [address] Dr. Etienne Fitch IG % 0.5 % Normal 0.0-0.5 [facility] Comment on above: Performed By: #### C BC #### [facility] [address] [place] [address] Dr. Etienne Fitch LYMPH # 1.4 103/ul Normal 1.2-3.8 [facility] Comment on above: Performed By: #### C BC #### [facility] [address] [place] [address] Dr. Etienne Fitch Lymphocytes/100 WBC (Bld) 10.1 % Critically low 20.5-60.0 [facility] Comment on above: Performed By: #### C BC #### [facility] [address] [place] [address] Dr. Etienne Fitch MANUAL DIFF REQ NO Normal [facility] Comment on above: Performed By: #### C BC #### [facility] [address] [place] [address] Dr. Etienne Fitch MCH (RBC) [Entitic mass] 29.6 pg Normal 25.9-34.0 [facility] Comment on above: Performed By: #### C BC #### [facility] [address] [place] [address] Dr. Etienne Fitch MCHC (RBC) [Mass/Vol] 33.6 g/dL Normal 29.9-35.2 [facility] Comment on above: Performed By: #### C BC #### [facility] [address] [place] [address] Dr. Etienne Fitch MCV (RBC) [Entitic vol] 87.9 fL Normal 80.0-94.0 [facility] Comment on above: Performed By: #### C BC #### [facility] [address] [place] [address] Dr. Etienne Fitch MONO # 1.5 103/ul Critically high 0.3-0.8 [facility] Comment on above: Performed By: #### C BC #### [facility] [address] [place] [address] Dr. Etienne Fitch Monocytes/100 WBC (Bld) 11.3 % Normal 1.7-12.0 [facility] Comment on above: Performed By: #### C BC #### [facility] [address] [address] [address] Etienne Fitch NEUT # 10.6 103/ul Critically high 1.4-6.5 [facility] Comment on above: Performed By: #### C BC #### [facility] [address] [place] [address] Dr. Etienne Fitch Neutrophils/100 WBC (Bld) 77.8 % Critically high 43.0-75.0 [facility] Comment on above: Performed By: #### C BC #### [facility] [address] [place] [address] Dr. Etienne Fitch Platelet mean volume (Bld) [Entitic vol] 11.1 fL Normal 9.5-13.5 [facility] Comment on above: Performed By: #### C BC #### [facility] [address] [place] [address] Dr. Etienne Fitch PLT 371 103/ul Normal 150-450 [facility] Comment on above: Performed By: #### C BC #### [facility] [address] [place] [address] Dr. Etienne Fitch RBC 6.26 106/ul Critically high 4.70-6.10 [facility] Comment on above: Performed By: #### C BC #### [facility] [address] [place] [address] Dr. Etienne Fitch WBC 13.6 103/ul Critically high 4.0-11.0 [facility] Comment on above: Performed By: #### C BC #### [facility] [address] [place] [address] Dr. Etienne Fitch Covid-19 PCR ([facility])on 11-27 SARS-CoV-2 (COVID-19) RNA KWABENA+probe Ql (Unsp spec) Not detected Normal NOT DETECTED [facility] Comment on above: Result Comment: When [...] for this test is supported by the Court Liaison of Health and Human Service's declaration that [...] Performed By: #### U MICRO, ERUR #### [facility] [address] [place] [address] Dr. Etienne Fitch ER URINE PROFILEon 3 Bilirubin Ql (U) Negative Normal NEGATIVE [facility] Comment on above: Performed By: #### U MICRO, ERUR #### [facility] [address] [place] [address] Dr. Etienne Fitch Clarity (U) CLEAR Normal CLEAR [facility] Comment on above: Performed By: #### U MICRO, ERUR #### [facility] [address] [place] [address] Dr. Etienne Fitch Color (U) LT. YELLOW Normal YELLOW [facility] Comment on above: Performed By: #### U MICRO, ERUR #### [facility] [address] [place] [address] Dr. Etienne Fitch ERUAHD A micrscopic examina tion will be performed if indicated. Normal [facility] Comment on above: Performed By: #### U MICRO, ERUR #### [facility] [address] [place] [address] Dr. Etienne Fitch Glucose Ql (U) Negative Normal NEGATIVE [facility] Comment on above: Performed By: #### U MICRO, ERUR #### [facility] [address] [place] [address] Dr. Etienne Fitch Hemoglobin Ql (U) Negative Normal NEGATIVE [facility] Comment on above: Performed By: #### U MICRO, ERUR #### [facility] [address] [address] [address] Etienne Ftich Ketones Ql (U) Negative Normal NEGATIVE [facility] Comment on above: Performed By: #### U MICRO, ERUR #### [facility] [address] [place] [address] Dr. Etienne Fitch LEUKOCYTES Negative Normal NEGATIVE [facility] Comment on above: Performed By: #### U MICRO, ERUR #### [facility] [address] [address] [address] Etienne Fitch Nitrite Ql (U) Negative Normal NEGATIVE [facility] Comment on above: Performed By: #### U MICRO, ERUR #### [facility] [address] [place] [address] Dr. Etienne Fitch pH (U) 6.0 [pH] Normal 5-9 [facility] Comment on above: Performed By: #### U MICRO, ERUR #### [facility] [address] [place] [address] Dr. Etienne Fitch SPEC GRAVITY 1.015 Normal 1.005-<=1.02 5 [facility] Comment on above: Performed By: #### U MICRO, ERUR #### [facility] [address] [place] [address] Dr. Etienne Fitch UA PROTEIN Negative Normal NEGATIVE/ TRACE [facility] Comment on above: Performed By: #### U MICRO, ERUR #### [facility] [address] [place] [address] Dr. Etienne Fitch UR MICRO IND NOT INDICATED Normal [facility] Comment on above: Performed By: #### U MICRO, ERUR #### [facility] [address] [place] [address] Dr. Etienne Fitch Urobilinogen Qn (U) 0.2 {Nesha'U}/dL Normal 0.2 - 1.0 [facility] Comment on above: Performed By: #### U MICRO, ERUR #### [facility] [address] [place] [address] Dr. Etienne Fitch INFLUENZA A AND B AGon 12-12 INFLUANEGH SEE BELOW Normal [facility] Comment on above: Result Comment: Nega tive for Flu A protein angiten. Infection due to Flu A cannot be ruled out. Flu A angiten in the sample may be below the detection limit of the test. Performed By: #### I NFLUAB #### [facility] [address] [place] [address] Dr. Etienne Fitch [facility] SEE BELOW Normal [facility] Comment on above: Result Comment: Nega tive for Flu B protein antigen. Infection due to Flu B cannot be ruled out. Flu B antigen in the sample may be below the detection limit of the test. Performed By: #### I NFLUAB #### [facility] [address] [place] [address] Dr. Etienne Fitch INFLUENZA A AG Negative Normal NEGATIVE SEE COMMENT [facility] Comment on above: Performed By: #### I NFLUAB #### [facility] [address] [place] [address] Dr. Etienne Fitch INFLUENZA B AG Negative Normal NEGATIVE SEE COMMENT [facility] Comment on above: Performed By: #### I NFLUAB #### [facility] [address] [place] [address] Dr. Etienne Fitch PROF 14(COMP METB)on 023 Albumin [Mass/Vol] 4.4 g/dL Normal 3.4-5.0 [facility] Comment on above: Performed By: #### U MICRO, ERUR #### [facility] [address] [place] [address] Dr. Etienne Fitch Albumin/Globulin [Mass ratio] 1.0 {ratio} Normal [facility] Comment on above: Performed By: #### U MICRO, ERUR #### [facility] [address] [place] [address] Dr. Etienne Fitch ALP [Catalytic activity/Vol] 107 U/L Normal 46-116 [facility] Comment on above: Performed By: #### U MICRO, ERUR #### [facility] [address] [place] [address] Dr. Etienne Fitch ALT [Catalytic activity/Vol] 23 U/L Normal 16-63 [facility] Comment on above: Performed By: #### U MICRO, ERUR #### [facility] [address] [address] [address] Etienne Fitch Anion gap [Moles/Vol] 19.1 mmol/L Normal [facility] Comment on above: Performed By: #### U MICRO, ERUR #### [facility] [address] [address] [address] Etienne Fitch AST [Catalytic activity/Vol] 24 U/L Normal 15-37 [facility] Comment on above: Performed By: #### U MICRO, ERUR #### [facility] [address] [address] [address] Etienne Fitch Bilirubin [Mass/Vol] 2.2 mg/dL Critically high 0.2-1.0 [facility] Comment on above: Performed By: #### U MICRO, ERUR #### [facility] [address] [address] [address] Etienne Fitch Calcium [Mass/Vol] 9.5 mg/dL Normal 8.5-10.1 [facility] Comment on above: Performed By: #### U MICRO, ERUR #### [facility] [address] [address] [address] Etienne Fitch Chloride [Moles/Vol] 102 mmol/L Normal 98-107 [facility] Comment on above: Performed By: #### U MICRO, ERUR #### [facility] [address] [address] [address] Etienne Fitch CO2 [Moles/Vol] 26.5 mmol/L Normal 21.0-32.0 [facility] Comment on above: Performed By: #### U MICRO, ERUR #### [facility] [address] [address] [address] Etienne Fitch Creatinine [Mass/Vol] 2.27 mg/dL Critically high 0.70-1.30 [facility] Comment on above: Performed By: #### U MICRO, ERUR #### [facility] [address] [address] [address] Etienne Fitch EGFR-AF ARGENTINE 38 mL/min/1.73m2 Critically low >=60 [facility] Comment on above: Performed By: #### U MICRO, ERUR #### [facility] [address] [address] [address] Etienne Fitch EGFR-NON AF ARGENTINE 32 mL/min/1.73m2 Critically low >=60 [facility] Comment on above: Performed By: #### U MICRO, ERUR #### [facility] [address] [address] [address] Etienne Fitch Globulin (S) [Mass/Vol] 4.4 g/dL Normal [facility] Comment on above: Performed By: #### U MICRO, ERUR #### [facility] [address] [place] [address] Dr. Etienne Fitch Glucose [Mass/Vol] 136 mg/dL Critically high 74-106 [facility] Comment on above: Performed By: #### U MICRO, ERUR #### [facility] [address] [address] [address] Etienne Fitch Potassium [Moles/Vol] 4.6 mmol/L Normal 3.5-5.1 [facility] Comment on above: Performed By: #### U MICRO, ERUR #### [facility] [address] [place] [address] Dr. Etienne Fitch Protein [Mass/Vol] 8.8 g/dL Critically high 6.4-8.2 [facility] Comment on above: Performed By: #### U MICRO, ERUR #### [facility] [address] [address] [address] Etienne Fitch Sodium [Moles/Vol] 143 mmol/L Normal 136-145 [facility] Comment on above: Performed By: #### U MICRO, ERUR #### [facility] [address] [place] [address] Dr. Etienne Fitch Urea nitrogen [Mass/Vol] 89.0 mg/dL Critically high 7.0-18.0 [facility] Comment on above: Performed By: #### U MICRO, ERUR #### [facility] [address] [place] [address] Dr. Etienne Fitch Urea nitrogen/Creatini ne [Mass ratio] 42.0 mg/mg Normal [facility] Comment on above: Performed By: #### U MICRO, ERUR #### [facility] [address] [address] [address] Etienne Fitch PROF CHEM 8 (BAS METB)on Anion gap [Moles/Vol] 12.4 mmol/L Normal [facility] Comment on above: Performed By: #### U MICRO, ERUR #### [facility] [address] [address] [address] Etienne Fitch Calcium [Mass/Vol] 8.9 mg/dL Normal 8.5-10.1 [facility] Comment on above: Performed By: #### U MICRO, ERUR #### [facility] [address] [place] [address] Dr. Etienne Fitch Chloride [Moles/Vol] 110 mmol/L Critically high 98-107 [facility] Comment on above: Performed By: #### U MICRO, ERUR #### [facility] [address] [address] [address] Etienne Fitch CO2 [Moles/Vol] 29.6 mmol/L Normal 21.0-32.0 [facility] Comment on above: Performed By: #### U MICRO, ERUR #### [facility] [address] [place] [address] Dr. Etienne Fitch Creatinine [Mass/Vol] 2.04 mg/dL Critically high 0.70-1.30 [facility] Comment on above: Performed By: #### U MICRO, ERUR #### [facility] [address] [address] [address] Etienne Fitch EGFR-AF ARGENTINE 43 mL/min/1.73m2 Critically low >=60 [facility] Comment on above: Performed By: #### U MICRO, ERUR #### [facility] [address] [address] [address] Etienne Fitch EGFR-NON AF ARGENTINE 36 mL/min/1.73m2 Critically low >=60 [facility] Comment on above: Performed By: #### U MICRO, ERUR #### [facility] [address] [address] [address] Etienne Fitch Glucose [Mass/Vol] 112 mg/dL Critically high 74-106 [facility] Comment on above: Performed By: #### U MICRO, ERUR #### [facility] [address] [address] [address] Etienne Fitch Potassium [Moles/Vol] 5.0 mmol/L Normal 3.5-5.1 [facility] Comment on above: Performed By: #### U MICRO, ERUR #### [facility] [address] [address] [address] Etienne Fitch Sodium [Moles/Vol] 147 mmol/L Critically high 136-145 [facility] Comment on above: Performed By: #### U MICRO, ERUR #### [facility] [address] [address] [address] Etienne Fitch Urea nitrogen [Mass/Vol] 79.0 mg/dL Critically high 7.0-18.0 [facility] Comment on above: Performed By: #### U MICRO, ERUR #### [facility] [address] [address] [address] Etienne Fitch Urea nitrogen/Creatini ne [Mass ratio] 38.7 mg/mg Normal [facility] Comment on above: Performed By: #### U MICRO, ERUR #### [facility] [address] [address] [address] Etienne Fitch Ambulatory Visit Summaryon 1 [...] & vomiting RLQ abdominal pain Normal [facility] General Surgery Office/Clini c Noteon [...] Heart disease: Mother. TIA: Mother. Normal [facility] Comment on above: Result Comment: Elec tronically Signed By: SAMIR MOCK, Anupam Thompson\Date and Time Signed: 08/07/22 13:24 EDT Reminderson 08-07-2022 Reminders - From: Harika Simmons LPN To: N - Clinical; Sent: 08/07/2022 13:07:35 EDT Show up: 06/23/2032 07:00:00 EDT Subject: colonoscopy recall Due Date/Time: 07/24/2032 07:00:00 EDT Reminder/Recall Patient is due for screening colonoscopy 07/24/2032. Normal [facility] Pathology Noteon 07-29-2022 Pathology Note [id number]#1.00CD:127 Normal [facility] Outside Colonoscopyon 2021 Outside Colonoscopy [id number]#1.00CD:127 Normal [facility] RAD - MRI Reporton RAD - MRI Report [id number]#1.00CD:127 Normal [facility] Lab Reportson 07-22-2022 Lab Reports [id number]#1.00CD:127 Normal [facility] RAD - MRI Reporton RAD - MRI Report [id number]#1.00CD:127 Normal [facility]on 06-28 SARS-CoV-2 (COVID-19) RNA KWABENA+probe Ql (Unsp spec) Not detected Normal NOT DETECTED [facility] Comment on above: Result Comment: This test is not yet approved or cleared by the [place] FDA. When there are no FDA-approved or cleared tests available, and other criteria are met, FDA can make tests available under an emergency access mechanism called an Emergency Use Authorization (EUA). The EUA for this test is supported by the Court Liaison of Health and Human Service's (HHS's) declaration [...] consistent with SARS-CoV-2. Performed By: #### [facility] #### [facility] [address] [place] [address] Dr. Etienne Fitch MRI ABDOMEN WO CONon [...] by: ALEXA HOWARD Date: 2022-07-19 07:49 Normal [facility] Consent for Procedure/Surger yon 07-04-2022 Consent for Procedure/Surgery [id number]#1.00CD:127 Normal [facility] Ambulatory Visit Summaryon 0 07-02-2022 Ambulatory Visit [...] & vomiting RLQ abdominal pain Normal [facility] ED Note-Physicianon 07-02-20 ED Note-Physician [id number]#1.00CD:127 Normal [facility] RAD - MISCon 06-27-2022 RAD - MISC [id number]#1.00CD:127 Normal [facility] AMYLASEon 06-15-2022 Amylase [Catalytic activity/Vol] 47 U/L Normal 25-115 [facility] Comment on above: Performed By: #### L ACT #### [facility] [address] [place] [address] Dr. Etienne Fitch CBC AUTO DIFFon 06-15-2022 BASO # 0.1 103/ul Normal 0.0-0.1 [facility] Comment on above: Performed By: #### U MICRO, ERUR #### [facility] [address] [place] [address] Dr. Etienne Fitch Basophils/100 WBC (Bld) 0.5 % Normal 0.2-2.0 [facility] Comment on above: Performed By: #### U MICRO, ERUR #### [facility] [address] [place] [address] Dr. Etienne Fitch EO # 0.0 103/ul Normal 0.0-0.7 [facility] Comment on above: Performed By: #### U MICRO, ERUR #### [facility] [address] [place] [address] Dr. Etienne Fitch Eosinophils/100 WBC (Bld) 0.1 % Critically low 0.9-7.0 [facility] Comment on above: Performed By: #### U MICRO, ERUR #### [facility] [address] [place] [address] Dr. Etienne Fitch Erythrocyte distribution width (RBC) [Ratio] 11.9 % Normal 11.0-15.0 [facility] Comment on above: Performed By: #### U MICRO, ERUR #### [facility] [address] [place] [address] Dr. Etienne Fitch Hematocrit (Bld) [Volume fraction] 48.4 % Normal 42.0-54.0 [facility] Comment on above: Performed By: #### U MICRO, ERUR #### [facility] [address] [place] [address] Dr. Etienne Fitch Hemoglobin (Bld) [Mass/Vol] 16.6 g/dL Normal 14.0-18.0 [facility] Comment on above: Performed By: #### U MICRO, ERUR #### [facility] [address] [place] [address] Dr. Etienne Fitch IG # 0.06 10e3/ul Critically high 0.00-0.03 [facility] Comment on above: Performed By: #### U MICRO, ERUR #### [facility] [address] [place] [address] Dr. Etienne Fitch IG % 0.4 % Normal 0.0-0.5 [facility] Comment on above: Performed By: #### U MICRO, ERUR #### [facility] [address] [place] [address] Dr. Etienne Fitch LYMPH # 0.8 103/ul Critically low 1.2-3.8 [facility] Comment on above: Performed By: #### U MICRO, ERUR #### [facility] [address] [place] [address] Dr. Etienne Fitch Lymphocytes/100 WBC (Bld) 5.0 % Critically low 20.5-60.0 [facility] Comment on above: Performed By: #### U MICRO, ERUR #### [facility] [address] [place] [address] Dr. Etienne Fitch MANUAL DIFF REQ NO Normal [facility] Comment on above: Performed By: #### U MICRO, ERUR #### [facility] [address] [place] [address] Dr. Etienne Fitch MCH (RBC) [Entitic mass] 30.9 pg Normal 25.9-34.0 [facility] Comment on above: Performed By: #### U MICRO, ERUR #### [facility] [address] [place] [address] Dr. Etienne Fitch MCHC (RBC) [Mass/Vol] 34.3 g/dL Normal 29.9-35.2 [facility] Comment on above: Performed By: #### U MICRO, ERUR #### [facility] [address] [place] [address] Dr. Etienne Fitch MCV (RBC) [Entitic vol] 90.1 fL Normal 80.0-94.0 [facility] Comment on above: Performed By: #### U MICRO, ERUR #### [facility] [address] [address] [address] Etienne Fitch MONO # 0.8 103/ul Normal 0.3-0.8 [facility] Comment on above: Performed By: #### U MICRO, ERUR #### [facility] [address] [place] [address] Dr. Etienne Fitch Monocytes/100 WBC (Bld) 5.3 % Normal 1.7-12.0 [facility] Comment on above: Performed By: #### U MICRO, ERUR #### [facility] [address] [place] [address] Dr. Etienne Fitch NEUT # 13.9 103/ul Critically high 1.4-6.5 [facility] Comment on above: Performed By: #### U MICRO, ERUR #### [facility] [address] [place] [address] Dr. Etienne Fitch Neutrophils/100 WBC (Bld) 88.7 % Critically high 43.0-75.0 [facility] Comment on above: Performed By: #### U MICRO, ERUR #### [facility] [address] [place] [address] Dr. Etienne Fitch Platelet mean volume (Bld) [Entitic vol] 10.9 fL Normal 9.5-13.5 [facility] Comment on above: Performed By: #### U MICRO, ERUR #### [facility] [address] [place] [address] Dr. Etienne Fitch PLT 424 103/ul Normal 150-450 [facility] Comment on above: Performed By: #### U MICRO, ERUR #### [facility] [address] [place] [address] Dr. Etienne Fitch RBC 5.37 106/ul Normal 4.70-6.10 [facility] Comment on above: Performed By: #### U MICRO, ERUR #### [facility] [address] [place] [address] Dr. Etienne Fitch WBC 15.7 103/ul Critically high 4.0-11.0 [facility] Comment on above: Performed By: #### U MICRO, ERUR #### [facility] [address] [address] [address] Etienne Fitch DRUG SCREEN RAPID (URINE)on 06-15-2022 AMP Negative Normal NEGATIVE [facility] Comment on above: Performed By: #### D RUGRPD #### [facility] [address] [place] [address] Dr. Etienne Fitch BAR Negative Normal NEGATIVE [facility] Comment on above: Performed By: #### D RUGRPD #### [facility] [address] [address] [address] Etienne Fitch BUP Negative Normal NEGATIVE [facility] Comment on above: Performed By: #### D RUGRPD #### [facility] [address] [place] [address] Dr. Etienne Fitch BZO Negative Normal NEGATIVE [facility] Comment on above: Performed By: #### D RUGRPD #### [facility] [address] [place] [address] Dr. Etienne Fitch MILTON Negative Normal NEGATIVE [facility] Comment on above: Performed By: #### D RUGRPD #### [facility] [address] [place] [address] Dr. Etienne Fitch CUT-OFFS SEE BELOW Normal [facility] Comment on above: Result Comment: AMP [...] ng/mL Performed By: #### D RUGRPD #### [facility] [address] [place] [address] Dr. Etienne Fitch DRUG CUT HEADER DRUG CLASS TEST SYST EM CUT-OFF CONCENTRATIONS ARE FOLLOWS: Normal [facility] Comment on above: Performed By: #### D RUGRPD #### [facility] [address] [address] [address] Etienne Fitch mAMP Negative Normal NEGATIVE [facility] Comment on above: Performed By: #### D RUGRPD #### [facility] [address] [address] [address] Etienne Fitch MTD Negative Normal NEGATIVE [facility] Comment on above: Performed By: #### D RUGRPD #### [facility] [address] [place] [address] Dr. Etienne Fitch OPI Negative Normal NEGATIVE [facility] Comment on above: Performed By: #### D RUGRPD #### [facility] [address] [place] [address] Dr. Etienne Fitch OXY Negative Normal NEGATIVE [facility] Comment on above: Performed By: #### D RUGRPD #### [facility] [address] [place] [address] Dr. Etienne Fitch PCP Negative Normal NEGATIVE [facility] Comment on above: Performed By: #### D RUGRPD #### [facility] [address] [place] [address] Dr. Etienne Fitch PPX Negative Normal NEGATIVE [facility] Comment on above: Performed By: #### D RUGRPD #### [facility] [address] [place] [address] Dr. Etienne Fitch TCA Negative Normal NEGATIVE [facility] Comment on above: Performed By: #### D RUGRPD #### [facility] [address] [place] [address] Dr. Etienne Fitch THC Positive Abnormal NEGATIVE [facility] Comment on above: Performed By: #### D RUGRPD #### [facility] [address] [place] [address] Dr. Etienne Fitch ER URINE PROFILEon 2 Bilirubin Ql (U) MODERATE Abnormal NEGATIVE [facility] Comment on above: Performed By: #### U MICRO, ERUR #### [facility] [address] [place] [address] Dr. Etienne Fitch Clarity (U) CLEAR Normal CLEAR [facility] Comment on above: Performed By: #### U MICRO, ERUR #### [facility] [address] [address] [address] Etienne Fitch Color (U) DK. ORANGE Abnormal YELLOW [facility] Comment on above: Performed By: #### U MICRO, ERUR #### [facility] [address] [place] [address] Dr. Etienne Fitch ERUAHD A micrscopic examina tion will be performed if indicated. Normal [facility] Comment on above: Performed By: #### U MICRO, ERUR #### [facility] [address] [place] [address] Dr. Etienne Fitch Glucose Ql (U) Negative Normal NEGATIVE [facility] Comment on above: Performed By: #### U MICRO, ERUR #### [facility] [address] [place] [address] Dr. Etienne Fitch Hemoglobin Ql (U) Negative Normal NEGATIVE [facility] Comment on above: Performed By: #### U MICRO, ERUR #### [facility] [address] [place] [address] Dr. Etienne Fitch Ketones Ql (U) 40 mg/dl Abnormal NEGATIVE [facility] Comment on above: Performed By: #### U MICRO, ERUR #### [facility] [address] [place] [address] Dr. Etienne Fitch LEUKOCYTES Negative Normal NEGATIVE [facility] Comment on above: Performed By: #### U MICRO, ERUR #### [facility] [address] [address] [address] Etienne Fitch Nitrite Ql (U) Negative Normal NEGATIVE [facility] Comment on above: Performed By: #### U MICRO, ERUR #### [facility] [address] [place] [address] Dr. Etienne Fitch pH (U) 6.0 [pH] Normal 5-9 [facility] Comment on above: Performed By: #### U MICRO, ERUR #### [facility] [address] [place] [address] Dr. Etienne Fitch Protein (U) [Mass/Vol] 100 mg/dL Abnormal NEGATIVE/ TRACE [facility] Comment on above: Performed By: #### U MICRO, ERUR #### [facility] [address] [place] [address] Dr. Etienne Fitch SPEC GRAVITY >=1.030 Abnormal 1.005-<=1.02 5 [facility] Comment on above: Performed By: #### U MICRO, ERUR #### [facility] [address] [place] [address] Dr. Etienne Fitch UR MICRO IND INDICATED Normal [facility] Comment on above: Performed By: #### U MICRO, ERUR #### [facility] [address] [place] [address] Dr. Etienne Fitch Urobilinogen Qn (U) 1.0 {Nesha'U}/dL Normal 0.2 - 1.0 [facility] Comment on above: Performed By: #### U MICRO, ERUR #### [facility] [address] [place] [address] Dr. Etienne Fitch ETHANOL (BLD ALC)on 06-15-20 ALC NOTE NOTE: 80 mg/dl is th e legal limit for a blood alcohol level Normal [facility] Comment on above: Performed By: #### E TH #### [facility] [address] [place] [address] Dr. Etienne Fitch Ethanol [Mass/Vol] mg/dL Normal [facility] Comment on above: Performed By: #### E TH #### [facility] [address] [place] [address] Dr. Etienne Fitch LIPASEon 06-15-2022 Lipase [Catalytic activity/Vol] 32.0 U/L Critically low 73.0-393.0 [facility] Comment on above: Performed By: #### L ACT #### [facility] [address] [place] [address] Dr. Etienne Fitch PROF 14(COMP METB)on Albumin [Mass/Vol] 5.4 g/dL Critically high 3.4-5.0 [facility] Comment on above: Performed By: #### L ACT #### [facility] [address] [place] [address] Dr. Etienne Fitch Albumin/Globulin [Mass ratio] 1.4 {ratio} Normal [facility] Comment on above: Performed By: #### L ACT #### [facility] [address] [address] [address] Etienne Fitch ALP [Catalytic activity/Vol] 93 U/L Normal 46-116 [facility] Comment on above: Performed By: #### L ACT #### [facility] [address] [place] [address] Dr. Etienne Fitch ALT [Catalytic activity/Vol] 19 U/L Normal 16-63 [facility] Comment on above: Performed By: #### L ACT #### [facility] [address] [place] [address] Dr. Etienne Fitch Anion gap [Moles/Vol] 18.2 mmol/L Normal [facility] Comment on above: Performed By: #### L ACT #### [facility] [address] [place] [address] Dr. Etienne Fitch AST [Catalytic activity/Vol] 23 U/L Normal 15-37 [facility] Comment on above: Performed By: #### L ACT #### [facility] [address] [place] [address] Dr. Etienne Fitch Bilirubin [Mass/Vol] 3.0 mg/dL Critically high 0.2-1.0 [facility] Comment on above: Performed By: #### L ACT #### [facility] [address] [place] [address] Dr. Etienne Fitch Calcium [Mass/Vol] 11.2 mg/dL Critically high 8.5-10.1 [facility] Comment on above: Performed By: #### L ACT #### [facility] [address] [place] [address] Dr. Etienne Fitch Chloride [Moles/Vol] 102 mmol/L Normal 98-107 [facility] Comment on above: Performed By: #### L ACT #### [facility] [address] [place] [address] Dr. Etienne Fitch CO2 [Moles/Vol] 27.0 mmol/L Normal 21.0-32.0 [facility] Comment on above: Performed By: #### L ACT #### [facility] [address] [address] [address] Etienne Fitch Creatinine [Mass/Vol] 1.49 mg/dL Critically high 0.70-1.30 [facility] Comment on above: Performed By: #### L ACT #### [facility] [address] [address] [address] Etienne Fitch EGFR-AF ARGENTINE >60 Normal >=60 [facility] Comment on above: Performed By: #### L ACT #### [facility] [address] [address] [address] Etienne Fitch EGFR-NON AF ARGENTINE 51 mL/min/1.73m2 Critically low >=60 [facility] Comment on above: Performed By: #### L ACT #### [facility] [address] [place] [address] Dr. Etienne Fitch Globulin (S) [Mass/Vol] 4.0 g/dL Normal [facility] Comment on above: Performed By: #### L ACT #### [facility] [address] [place] [address] Dr. Etienne Fitch Glucose [Mass/Vol] 183 mg/dL Critically high 74-106 [facility] Comment on above: Performed By: #### L ACT #### [facility] [address] [place] [address] Dr. Etienne Fitch Potassium [Moles/Vol] 4.2 mmol/L Normal 3.5-5.1 [facility] Comment on above: Performed By: #### L ACT #### [facility] [address] [address] [address] Etienne Fitch Protein [Mass/Vol] 9.4 g/dL Critically high 6.4-8.2 [facility] Comment on above: Performed By: #### L ACT #### [facility] [address] [address] [address] Etienne Fitch Sodium [Moles/Vol] 143 mmol/L Normal 136-145 [facility] Comment on above: Performed By: #### L ACT #### [facility] [address] [place] [address] Dr. Etienne Fitch Urea nitrogen [Mass/Vol] 19.0 mg/dL Critically high 7.0-18.0 [facility] Comment on above: Performed By: #### L ACT #### [facility] [address] [place] [address] Dr. Etienne Fitch Urea nitrogen/Creatini ne [Mass ratio] 12.8 mg/mg Normal [facility] Comment on above: Performed By: #### L ACT #### [facility] [address] [place] [address] Dr. Etienne Fitch URINE MICROSCOPIC ONLYon BACTERIA TRACE Abnormal NONE SEEN [facility] Comment on above: Performed By: #### U MICRO, ERUR #### [facility] [address] [place] [address] Dr. Etienne Fitch Bacteria identified Cx Nom (U) NOT INDICATED Normal [facility] Comment on above: Performed By: #### U MICRO, ERUR #### [facility] [address] [place] [address] Dr. Etienne Fitch CAST SEEN Abnormal NONE SEEN [facility] Comment on above: Performed By: #### U MICRO, ERUR #### [facility] [address] [place] [address] Dr. Etienne Fitch Crystals LM Nom (Urine sed) NONE SEEN Normal NONE SEEN [facility] Comment on above: Performed By: #### U MICRO, ERUR #### [facility] [address] [place] [address] Dr. Etienne Fitch Epithelial cells LM Ql (Urine sed) NONE SEEN Normal NONE SEEN /RARE [facility] Comment on above: Performed By: #### U MICRO, ERUR #### [facility] [address] [place] [address] Dr. Etienne Fitch HYALINE CAST MODERATE Normal [facility] Comment on above: Performed By: #### U MICRO, ERUR #### [facility] [address] [address] [address] Etienne Fitch MUCOUS MODERATE Abnormal NONE SEEN [facility] Comment on above: Performed By: #### U MICRO, ERUR #### [facility] [address] [address] [address] Etienne Fitch RBC 0-2 Normal 0-2 [facility] Comment on above: Performed By: #### U MICRO, ERUR #### [facility] [address] [address] [address] Etienne Fitch WBC NONE SEEN Normal NONE SEEN [facility] Comment on above: Performed By: #### U MICRO, ERUR #### [facility] [address] [address] [address] Etienne Fitch XR ABD FLAT UP_PA [...] SHILPI THAPA Date: 2022-06-15 09:44 Normal [facility] ED Note-Physicianon 04-03-20 ED Note-Physician [id number]:[id number] Normal [facility] CBC W MANUAL DIFFon 04-02-20 22 ATYPICAL LYMPH # Normal [facility] Comment on above: Performed By: #### U MICRO, ERUR #### [facility] [address] [address] [address] Etienne Fitch ATYPICAL LYMPH % Normal [facility] Comment on above: Performed By: #### U MICRO, ERUR #### [facility] [address] [address] [address] Etienne Fitch BAND # Normal 0.0-0.3 [facility] Comment on above: Performed By: #### U MICRO, ERUR #### [facility] [address] [place] [address] Dr. Etienne Fitch BAND % Normal 0-5 [facility] Comment on above: Performed By: #### U MICRO, ERUR #### [facility] [address] [place] [address] Dr. Etienne Fitch BASOM # 0.00 103/ul Normal 0.00-0.10 [facility] Comment on above: Performed By: #### U MICRO, ERUR #### [facility] [address] [place] [address] Dr. Etienne Fitch BASOM % 0.0 % Critically low 0.2-2.0 [facility] Comment on above: Performed By: #### U MICRO, ERUR #### [facility] [address] [place] [address] Dr. Etienne Fitch BLAST # Normal [facility] Comment on above: Performed By: #### U MICRO, ERUR #### [facility] [address] [place] [address] Dr. Etienne Fitch BLAST % Normal [facility] Comment on above: Performed By: #### U MICRO, ERUR #### [facility] [address] [place] [address] Dr. Etienne Fitch CORRECTED WBC Normal 4.0-11.0 [facility] Comment on above: Performed By: #### U MICRO, ERUR #### [facility] [address] [place] [address] Dr. Etienne Fitch EOS # 0.00 103/ul Normal 0.00-0.70 [facility] Comment on above: Performed By: #### U MICRO, ERUR #### [facility] [address] [place] [address] Dr. Etienne Fitch EOS% 0.0 % Critically low 0.9-7.0 [facility] Comment on above: Performed By: #### U MICRO, ERUR #### [facility] [address] [place] [address] Dr. Etienne Fitch HCT 43.5 % Normal 42.0-54.0 [facility] Comment on above: Performed By: #### U MICRO, ERUR #### [facility] [address] [place] [address] Dr. Etienne Fitch HGB 14.3 g/dl Normal 14.0-18.0 [facility] Comment on above: Result Comment: gett ing fluids Performed By: #### U MICRO, ERUR #### [facility] [address] [place] [address] Dr. Etienne Fitch LYMPHM # 3.30 103/ul Normal 1.20-3.80 [facility] Comment on above: Performed By: #### U MICRO, ERUR #### [facility] [address] [place] [address] Dr. Etienne Fitch LYMPHM% 20.0 % Critically low 20.5-60.0 [facility] Comment on above: Performed By: #### U MICRO, ERUR #### [facility] [address] [place] [address] Dr. Etienne Fitch MCH 30.9 pg Normal 25.9-34.0 [facility] Comment on above: Performed By: #### U MICRO, ERUR #### [facility] [address] [place] [address] Dr. Etienne Fitch MCHC 32.9 g/dl Normal 29.9-35.2 [facility] Comment on above: Performed By: #### U MICRO, ERUR #### [facility] [address] [place] [address] Dr. Etienne Fitch MCV 94.0 fL Normal 80.0-94.0 [facility] Comment on above: Performed By: #### U MICRO, ERUR #### [facility] [address] [place] [address] Dr. Etienne Fitch METAMYELOCYTE # Normal [facility] Comment on above: Performed By: #### U MICRO, ERUR #### [facility] [address] [place] [address] Dr. Etienne Fitch METAMYELOCYTE % Normal [facility] Comment on above: Performed By: #### U MICRO, ERUR #### [facility] [address] [address] [address] Etienne Fitch MONOM# 2.31 103/ul Critically high 0.30-0.80 [facility] Comment on above: Performed By: #### U MICRO, ERUR #### [facility] [address] [place] [address] Dr. Etienne Fitch MONOM% 14.0 % Critically high 1.7-12.0 [facility] Comment on above: Performed By: #### U MICRO, ERUR #### [facility] [address] [place] [address] Dr. Etienne Fitch MPV 10.5 fL Normal 9.5-13.5 [facility] Comment on above: Performed By: #### U MICRO, ERUR #### [facility] [address] [place] [address] Dr. Etienne Fitch MYELOCYTE # Normal [facility] Comment on above: Performed By: #### U MICRO, ERUR #### [facility] [address] [address] [address] Etienne Fitch MYELOCYTE % Normal [facility] Comment on above: Performed By: #### U MICRO, ERUR #### [facility] [address] [place] [address] Dr. Etienne Fitch NRBC Normal [facility] Comment on above: Performed By: #### U MICRO, ERUR #### [facility] [address] [address] [address] Etienne Fitch PLT 285 103/ul Normal 150-450 [facility] Comment on above: Performed By: #### U MICRO, ERUR #### [facility] [address] [address] [address] Etienne Fitch RBC 4.63 106/ul Critically low 4.70-6.10 [facility] Comment on above: Performed By: #### U MICRO, ERUR #### [facility] [address] [place] [address] Dr. Etienne Fitch RDW 12.8 % Normal 11.0-15.0 [facility] Comment on above: Performed By: #### U MICRO, ERUR #### [facility] [address] [address] [address] Etienne Fitch SEG # 10.89 103/ul Critically high 1.40-6.50 [facility] Comment on above: Performed By: #### U MICRO, ERUR #### [facility] [address] [address] [address] Etienne Fitch SEG % 66.0 % Normal 43.0-75.0 [facility] Comment on above: Performed By: #### U MICRO, ERUR #### [facility] [address] [place] [address] Dr. Etienne Fitch TOXIC GRANULATION 1+ Normal [facility] Comment on above: Performed By: #### U MICRO, ERUR #### [facility] [address] [place] [address] Dr. Etienne Fitch WBC 16.5 103/ul Critically high 4.0-11.0 [facility] Comment on above: Performed By: #### U MICRO, ERUR #### [facility] [address] [place] [address] Dr. Etienne Fitch PROF 14(COMP METB)on 022 Albumin [Mass/Vol] 3.2 g/dL Critically low 3.4-5.0 [facility] Comment on above: Performed By: #### L ACT #### [facility] [address] [place] [address] Dr. Etienne Fitch Albumin/Globulin [Mass ratio] 1.1 {ratio} Normal [facility] Comment on above: Performed By: #### L ACT #### [facility] [address] [place] [address] Dr. Etienne Fitch ALP [Catalytic activity/Vol] 55 U/L Normal 46-116 [facility] Comment on above: Performed By: #### L ACT #### [facility] [address] [place] [address] Dr. Etienne Fitch ALT [Catalytic activity/Vol] 28 U/L Normal 16-63 [facility] Comment on above: Performed By: #### L ACT #### [facility] [address] [address] [address] Etienne Fitch Anion gap [Moles/Vol] 12.6 mmol/L Normal [facility] Comment on above: Performed By: #### L ACT #### [facility] [address] [address] [address] Etinene Fitch AST [Catalytic activity/Vol] 20 U/L Normal 15-37 [facility] Comment on above: Performed By: #### L ACT #### [facility] [address] [address] [address] Etienne Fitch Bilirubin [Mass/Vol] 2.8 mg/dL Critically high 0.2-1.0 [facility] Comment on above: Performed By: #### L ACT #### [facility] [address] [place] [address] Dr. Etienne Fitch Calcium [Mass/Vol] 7.8 mg/dL Critically low 8.5-10.1 [facility] Comment on above: Performed By: #### L ACT #### [facility] [address] [address] [address] Etienne Fitch Chloride [Moles/Vol] 104 mmol/L Normal 98-107 [facility] Comment on above: Performed By: #### L ACT #### [facility] [address] [address] [address] Etienne Fitch CO2 [Moles/Vol] 28.0 mmol/L Normal 21.0-32.0 [facility] Comment on above: Performed By: #### L ACT #### [facility] [address] [address] [address] Etienne Fitch Creatinine [Mass/Vol] 0.97 mg/dL Normal 0.70-1.30 [facility] Comment on above: Performed By: #### L ACT #### [facility] [address] [address] [address] Etienne Fitch EGFR-AF ARGENTINE >60 Normal >=60 [facility] Comment on above: Performed By: #### L ACT #### [facility] [address] [place] [address] Dr. Etienne Fitch EGFR-NON AF ARGENTINE >60 Normal >=60 [facility] Comment on above: Performed By: #### L ACT #### [facility] [address] [address] [address] Etienne Fitch Globulin (S) [Mass/Vol] 2.9 g/dL Normal [facility] Comment on above: Performed By: #### L ACT #### [facility] [address] [address] [address] Etienne Fitch Glucose [Mass/Vol] 108 mg/dL Critically high 74-106 [facility] Comment on above: Performed By: #### L ACT #### [facility] [address] [place] [address] Dr. Etienne Fitch Potassium [Moles/Vol] 3.6 mmol/L Normal 3.5-5.1 [facility] Comment on above: Performed By: #### L ACT #### [facility] [address] [place] [address] Dr. Etienne Fitch Protein [Mass/Vol] 6.1 g/dL Critically low 6.4-8.2 [facility] Comment on above: Performed By: #### L ACT #### [facility] [address] [place] [address] Dr. Etienne Fitch Sodium [Moles/Vol] 141 mmol/L Normal 136-145 [facility] Comment on above: Performed By: #### L ACT #### [facility] [address] [address] [address] Etienne Fitch Urea nitrogen [Mass/Vol] 33.0 mg/dL Critically high 7.0-18.0 [facility] Comment on above: Performed By: #### L ACT #### [facility] [address] [place] [address] Dr. Etienne Fitch Urea nitrogen/Creatini ne [Mass ratio] 34.0 mg/mg Normal [facility] Comment on above: Performed By: #### L ACT #### [facility] [address] [place] [address] Dr. Etienne Fitch US SINGLE QUAD RT [...] ALEXA HOWARD Date: 2022-04-02 09:08 Normal [facility] CBC AUTO DIFFon 04-01-2022 BASO # 0.1 103/ul Normal 0.0-0.1 [facility] Comment on above: Performed By: #### U MICRO, ERUR #### [facility] [address] [address] [address] Etienne Fitch Basophils/100 WBC (Bld) 0.4 % Normal 0.2-2.0 [facility] Comment on above: Performed By: #### U MICRO, ERUR #### [facility] [address] [place] [address] Dr. Etienne Fitch EO # 0.0 103/ul Normal 0.0-0.7 [facility] Comment on above: Performed By: #### U MICRO, ERUR #### [facility] [address] [address] [address] Etienne Fitch Eosinophils/100 WBC (Bld) 0.0 % Critically low 0.9-7.0 [facility] Comment on above: Performed By: #### U MICRO, ERUR #### [facility] [address] [place] [address] Dr. Etienne Fitch Erythrocyte distribution width (RBC) [Ratio] 12.8 % Normal 11.0-15.0 [facility] Comment on above: Performed By: #### U MICRO, ERUR #### [facility] [address] [place] [address] Dr. Etienne Fitch Hematocrit (Bld) [Volume fraction] 55.1 % Critically high 42.0-54.0 [facility] Comment on above: Performed By: #### U MICRO, ERUR #### [facility] [address] [place] [address] Dr. Etienne Fitch Hemoglobin (Bld) [Mass/Vol] 18.3 g/dL Critically high 14.0-18.0 [facility] Comment on above: Performed By: #### U MICRO, ERUR #### [facility] [address] [place] [address] Dr. Etienne Fitch IG # 0.11 10e3/ul Critically high 0.00-0.03 [facility] Comment on above: Performed By: #### U MICRO, ERUR #### [facility] [address] [place] [address] Dr. Etienne Fitch IG % 0.5 % Normal 0.0-0.5 [facility] Comment on above: Performed By: #### U MICRO, ERUR #### [facility] [address] [place] [address] Dr. Etienne Fitch LYMPH # 1.2 103/ul Normal 1.2-3.8 [facility] Comment on above: Performed By: #### U MICRO, ERUR #### [facility] [address] [place] [address] Dr. Etienne Fitch Lymphocytes/100 WBC (Bld) 5.7 % Critically low 20.5-60.0 [facility] Comment on above: Performed By: #### U MICRO, ERUR #### [facility] [address] [place] [address] Dr. Etienne Fitch MANUAL DIFF REQ NO Normal [facility] Comment on above: Performed By: #### U MICRO, ERUR #### [facility] [address] [place] [address] Dr. Etienne Fitch MCH (RBC) [Entitic mass] 30.7 pg Normal 25.9-34.0 [facility] Comment on above: Performed By: #### U MICRO, ERUR #### [facility] [address] [place] [address] Dr. Etienne Fitch MCHC (RBC) [Mass/Vol] 33.2 g/dL Normal 29.9-35.2 [facility] Comment on above: Performed By: #### U MICRO, ERUR #### [facility] [address] [place] [address] Dr. Etienne Fitch MCV (RBC) [Entitic vol] 92.3 fL Normal 80.0-94.0 [facility] Comment on above: Performed By: #### U MICRO, ERUR #### [facility] [address] [place] [address] Dr. Etienne Fitch MONO # 1.6 103/ul Critically high 0.3-0.8 [facility] Comment on above: Performed By: #### U MICRO, ERUR #### [facility] [address] [place] [address] Dr. Etienne Fitch Monocytes/100 WBC (Bld) 7.4 % Normal 1.7-12.0 [facility] Comment on above: Performed By: #### U MICRO, ERUR #### [facility] [address] [place] [address] Dr. Etienne Fitch NEUT # 18.6 103/ul Critically high 1.4-6.5 [facility] Comment on above: Performed By: #### U MICRO, ERUR #### [facility] [address] [place] [address] Dr. Etienne Fitch Neutrophils/100 WBC (Bld) 86.0 % Critically high 43.0-75.0 [facility] Comment on above: Performed By: #### U MICRO, ERUR #### [facility] [address] [place] [address] Dr. Etienne Fitch Platelet mean volume (Bld) [Entitic vol] 10.3 fL Normal 9.5-13.5 [facility] Comment on above: Performed By: #### U MICRO, ERUR #### [facility] [address] [place], [place] [address] [address]. Eitenne Fitch PLT 447 103/ul Normal 150-450 [facility] Comment on above: Performed By: #### U MICRO, ERUR #### [facility] [address] [place], [place] [address] Dr. Etienne Fitch RBC 5.97 106/ul Normal 4.70-6.10 [facility] Comment on above: Performed By: #### U MICRO, ERUR #### [facility] [address] [place], [place] [address] Dr. Etienne Fitch WBC 21.6 103/ul Critically high 4.0-11.0 [facility] Comment on above: Performed By: #### U MICRO, ERUR #### [facility] [address] [place], [place] [address] ABD/PELV W CONon [...] ALEXA HOWARD Date: 2022-04-01 15:11 Normal [facility] Covid-19 PCR (CVDTBH)on SARS-CoV-2 (COVID-19) RNA KWABENA+probe Ql (Unsp spec) Not detected Normal NOT DETECTED [facility] Comment on above: Result Comment: When [...] for this test is supported by the [place] of Health and Human Service's declaration that [...] used). Performed By: #### C VDTBH #### [facility] [address] [place] [address] Dr. Etienne Fitch ER URINE PROFILEon 2 Bilirubin Ql (U) MODERATE Abnormal NEGATIVE [facility] Comment on above: Performed By: #### U MICRO, ERUR #### [facility] [address] [place] [address] Dr. Etienne Fitch Clarity (U) CLEAR Normal CLEAR [facility] Comment on above: Performed By: #### U MICRO, ERUR #### [facility] [address] [place] [address] Dr. Etienne Fitch Color (U) DK. ORANGE Abnormal YELLOW [facility] Comment on above: Performed By: #### U MICRO, ERUR #### [facility] [address] [place] [address] Dr. Etienne Fitch ERUAHD A micrscopic examina tion will be performed if indicated. Normal [facility] Comment on above: Performed By: #### U MICRO, ERUR #### [facility] [address] [address] [address] Etienne Fitch Glucose Ql (U) Negative Normal NEGATIVE [facility] Comment on above: Performed By: #### U MICRO, ERUR #### [facility] [address] [address] [address] Etienne Fitch Hemoglobin Ql (U) Negative Normal NEGATIVE [facility] Comment on above: Performed By: #### U MICRO, ERUR #### [facility] [address] [place] [address] Dr. Etienne Fitch Ketones Ql (U) Negative Normal NEGATIVE [facility] Comment on above: Performed By: #### U MICRO, ERUR #### [facility] [address] [place] [address] Dr. Etienne Fitch LEUKOCYTES Negative Normal NEGATIVE [facility] Comment on above: Performed By: #### U MICRO, ERUR #### [facility] [address] [address] [address] Etienne Fitch Nitrite Ql (U) Negative Normal NEGATIVE [facility] Comment on above: Performed By: #### U MICRO, ERUR #### [facility] [address] [place] [address] Dr. Etienne Fitch pH (U) 5.5 [pH] Normal 5-9 [facility] Comment on above: Performed By: #### U MICRO, ERUR #### [facility] [address] [place] [address] Dr. Etienne Fitch Protein (U) [Mass/Vol] 100 mg/dL Abnormal NEGATIVE/ TRACE [facility] Comment on above: Performed By: #### U MICRO, ERUR #### [facility] [address] [place] [address] Dr. Etienen Fitch SPEC GRAVITY >=1.030 Abnormal 1.005-<=1.[address] [place] [address] Comment on above: Performed By: #### U MICRO, ERUR #### [facility] [address] [place] [address] Dr. Etienne Fitch UR MICRO IND INDICATED Normal [facility] Comment on above: Performed By: #### U MICRO, ERUR #### [facility] [address] [place] [address] Dr. Etienne Fitch Urobilinogen Qn (U) 1.0 {Nesha'U}/dL Normal 0.2 - 1.0 [facility] Comment on above: Performed By: #### U MICRO, ERUR #### [facility] [address] [place] [address] Dr. Etienne Fitch LACTATE/LACTIC ACIDon 2021 Lactate [Moles/Vol] 1.8 mmol/L Normal 0.4-1.9 [facility] Comment on above: Performed By: #### U MICRO, ERUR #### [facility] [address] [place] [address] Dr. Etienne Fitch Lactate [Moles/Vol] 2.3 mmol/L Critically high 0.4-1.9 [facility] Comment on above: Result Comment: repe ated Performed By: #### L ACT #### [facility] [address] [place] [address] Dr. Etienne Fitch LIPASEon 04-01-2022 Lipase [Catalytic activity/Vol] 32.0 U/L Critically low 73.0-393.0 [facility] Comment on above: Performed By: #### U MICRO, ERUR #### [facility] [address] [place] [address] Dr. Etienne Fitch PROF 14(COMP METB)on 022 Albumin [Mass/Vol] 4.9 g/dL Normal 3.4-5.0 [facility] Comment on above: Performed By: #### U MICRO, ERUR #### [facility] [address] [place] [address] Dr. Etienne Fitch Albumin/Globulin [Mass ratio] 1.2 {ratio} Normal [facility] Comment on above: Performed By: #### U MICRO, ERUR #### [facility] [address] [place] [address] Dr. Etienne Fitch ALP [Catalytic activity/Vol] 82 U/L Normal 46-116 [facility] Comment on above: Performed By: #### U MICRO, ERUR #### [facility] [address] [address] [address] Etienne Fitch ALT [Catalytic activity/Vol] 37 U/L Normal 16-63 [facility] Comment on above: Performed By: #### U MICRO, ERUR #### [facility] [address] [address] [address] Etienne Fitch Anion gap [Moles/Vol] 13.2 mmol/L Normal [facility] Comment on above: Performed By: #### U MICRO, ERUR #### [facility] [address] [address] [address] Etienne Fitch AST [Catalytic activity/Vol] 31 U/L Normal 15-37 [facility] Comment on above: Performed By: #### U MICRO, ERUR #### [facility] [address] [address] [address] Etienne Fitch Bilirubin [Mass/Vol] 4.8 mg/dL Critically high 0.2-1.0 [facility] Comment on above: Performed By: #### U MICRO, ERUR #### [facility] [address] [address] [address] Etienne Fitch Calcium [Mass/Vol] 9.8 mg/dL Normal 8.5-10.1 [facility] Comment on above: Performed By: #### U MICRO, ERUR #### [facility] [address] [address] [address] Etienne Fitch Chloride [Moles/Vol] 98 mmol/L Normal 98-107 [facility] Comment on above: Performed By: #### U MICRO, ERUR #### [facility] [address] [address] [address] Etienne Fitch CO2 [Moles/Vol] 31.2 mmol/L Normal 21.0-32.0 [facility] Comment on above: Performed By: #### U MICRO, ERUR #### [facility] [address] [address] [address] Etienne Fitch Creatinine [Mass/Vol] 1.63 mg/dL Critically high 0.70-1.30 [facility] Comment on above: Performed By: #### U MICRO, ERUR #### [facility] [address] [address] [address] Etienne Fitch EGFR-AF ARGENTINE 56 mL/min/1.73m2 Critically low >=60 [facility] Comment on above: Performed By: #### U MICRO, ERUR #### [facility] [address] [address] [address] Etienne Fitch EGFR-NON AF ARGENTINE 46 mL/min/1.73m2 Critically low >=60 [facility] Comment on above: Performed By: #### U MICRO, ERUR #### [facility] [address] [address] [address] Etienne Fitch Globulin (S) [Mass/Vol] 4.1 g/dL Normal [facility] Comment on above: Performed By: #### U MICRO, ERUR #### [facility] [address] [address] [address] Etienne Fitch Glucose [Mass/Vol] 142 mg/dL Critically high 74-106 [facility] Comment on above: Performed By: #### U MICRO, ERUR #### [facility] [address] [place] [address] Dr. Etienne Fitch Potassium [Moles/Vol] 3.4 mmol/L Critically low 3.5-5.1 [facility] Comment on above: Performed By: #### U MICRO, ERUR #### [facility] [address] [place] [address] Dr. Etienne Fitch Protein [Mass/Vol] 9.0 g/dL Critically high 6.4-8.2 [facility] Comment on above: Performed By: #### U MICRO, ERUR #### [facility] [address] [place] [address] Dr. Etienne Fitch Sodium [Moles/Vol] 139 mmol/L Normal 136-145 [facility] Comment on above: Performed By: #### U MICRO, ERUR #### [facility] [address] [address] [address] Etienne Fitch Urea nitrogen [Mass/Vol] 40.0 mg/dL Critically high 7.0-18.0 [facility] Comment on above: Performed By: #### U MICRO, ERUR #### [facility] [address] [address] [address] Etienne Fitch Urea nitrogen/Creatini ne [Mass ratio] 24.5 mg/mg Normal [facility] Comment on above: Performed By: #### U MICRO, ERUR #### [facility] [address] [address] [address] Etienne Fitch TROPONIN, HIGH SENSITIVITYon 04-01-2022 HSTROP 44.4 pg/mL Normal 4.0-76.1 [facility] Comment on above: Result Comment: CUT- OFF POINTS HAVE BEEN ESTABLISHED BASED ON THE FOURTH UNIVERSAL DEFINITIONS OF MYOCARDIAL INFARCTION. THE UPPER REFERENCE LIMIT (URL) OF TROPONIN, DEFINED THE 99TH PERCENTILE OF cTnI DISTRIBUTION IN A REFERENCE POPULATION, HAS BEEN CONFIRMED THE DECISION THRESHOLD FOR VA DIAGNOSIS. Performed By: #### U MICRO, ERUR #### [facility] [address] [place] [address] Dr. Etienne Fitch URINE MICROSCOPIC ONLYon BACTERIA NONE SEEN Normal NONE SEEN [facility] Comment on above: Performed By: #### U MICRO, ERUR #### [facility] [address] [place] [address] Dr. Etienne Fitch Bacteria identified Cx Nom (U) NOT INDICATED Normal [facility] Comment on above: Performed By: #### U MICRO, ERUR #### [facility] [address] [address] [address] Etienne Fitch CAST SEEN Abnormal NONE SEEN [facility] Comment on above: Performed By: #### U MICRO, ERUR #### [facility] [address] [address] [address] Etienne Fitch Crystals LM Nom (Urine sed) NONE SEEN Normal NONE SEEN [facility] Comment on above: Performed By: #### U MICRO, ERUR #### [facility] [address] [place] [address] Dr. Etienne Fitch Epithelial cells LM Ql (Urine sed) NONE SEEN Normal NONE SEEN /RARE [facility] Comment on above: Performed By: #### U MICRO, ERUR #### [facility] [address] [address] [address] Etienne Fitch MUCOUS NONE SEEN Normal NONE SEEN [facility] Comment on above: Performed By: #### U MICRO, ERUR #### [facility] [address] [address] [address] Etienne Fitch RBC NONE SEEN Abnormal 0-2 [facility] Comment on above: Performed By: #### U MICRO, ERUR #### [facility] [address] [address] [address] Etienne Fitch WBC 0-2 Abnormal NONE SEEN [facility] Comment on above: Performed By: #### U MICRO, ERUR #### [facility] [address] [address] [address] Etienne Fitch Vital Signs Date Time Vital Sign Value Performing Clinician Faci emanuely 07-02-2022 13:15-0400 Blood Pressure Location [facility] 07-02-2022 13:15-0400 Diastolic blood pressure 74 mm[Hg] [facility] 07-02-2022 13:15-0400 Heart rate 72 /min [facility] 07-02-2022 13:15-0400 Respiratory rate 16 /min [facility] [place] 07-02-2022 13:15-0400 Systolic blood pressure 120 mm[Hg] [facility] Encounters Encounter Date Encounter Type Care Provider Facility Start: 02-07-2023 Encounter for genera l adult medical examination without abnormal findings [facility] Start: 01-29-2023 End: 01-30-2023 ambulatory [facility] Facility:[facility] Start: 01-29-2023 End: 01-30-2023 Encounter for general adult medical examination without abnormal findings [facility] Facility:[facility]1 Start: 12-18-2022 End: 12-19-2022 ambulatory MAKENZIE Dedrick JOHNNY Facility:[facility] Start: 12-12-2022 End: 12-12-2022 ambulatory EVELYN GLASER . Facility: Start: 08-07-2022 ambulatory Anupam POOLE Facility :[facility] Start: 08-07-2022 End: 08-07-2022 Patient encounter procedure Anupam POOLE [facility] Start: 07-24-2022 Encounter for preprocedural laboratory examination DR ANUPAM POOLE . [facility] Start: 07-24-2022 End: 07-25-2022 ambulatory Anupam POOLE Facility:[id number] Start: 07-20-2022 End: 07-21-[address] ANUPAM POOLE . Facility: Start: 07-20-2022 End: 07-21-2022 Encounter for preprocedural laboratory examination DR ANUPAM POOLE . Facility: Start: 07-17-2022 End: 07-18-[address] ANUPAM POOLE . Facility: Start: 07-02-2022 End: 07-03-2022 ambulatory Anupam POOLE Facility:[facility] Start: 07-02-2022 End: 07-02-2022 Patient encounter procedure Anupam POOLE [facility] Start: 06-15-2022 End: 06-15-2022 ambulatory EVELYN GLASER . Facility: Start: 04-23-2022 ambulatory Anupam POOLE Facility :[facility] Start: 04-02-2022 ambulatory Anupam POOLE Facility :[facility] Start: 04-01-2022 End: 04-02-[address] ALEXA HOWARD Facility: Procedures Date Procedure Procedure Detail Performing Clinician Start: 07-24-2022 Colonoscopy Anupam ELLIOTT Start: 07-24-2022 Esophagogastroduodenoscopy Anupam POOLE None (qualifier value) Elias POOLE Payers Date Payer Category Payer Unknown [id number] 2.16.8 [id number] 1978 Unknown [id number] 2.16.8 [id number] 1978 Unknown [id number] 2.16.8 [id number] 1978 Unknown [id number] 2.16.8 [id number] 1978 Unknown [id number] 2.16.84 [id number] 1978 Unknown [id number] 2.16.84 [id number] 1978 Unknown [id number] 2.16.84 [id number] 1978 Unknown [id number] 2.16.84 [id number] 1978 Unknown [id number] 2.16.84 [id number] 1978 Unknown [id number] 2.16.84 [id number] 1978 Unknown [id number] 2.16.84 [id number] 1978 Unknown [id number] 2.16.84 [id number] 1959 Unknown [id number] Social History Date Type Detail Facility Start: 07-02-2022 Tobacco smoking status Ex-smoker (fi nding) [facility] Tobacco smoking status Smokeless tobacco user within last 30 days [facility] Sex Assigned At Male [facility] Functional Status Date Assessment Result Facility 07-02-2022 Functional Status N/A [facility] Clinical Note 07-24-2022 Note Date & Type [...] in good condition. CC: Family physician [facility] Clinical Note 07-02-2022 Note Date & Type Note Facility 07-02-2022 Note Chief Complaint consultation for ABD pain HPI Staff 41 year old male presents on consultation from [facility] ED for abdominal pain. Presented to ED [...] No K (more content not included)... [facility] Comment on above: Result Comment: Elec tronically Signed By: SAMIR MOCK, Anupam Thompson\Date and Time Signed: 07/02/22 21:30 EDT History and physical note 04-03-2022 Note Date & Type Note Facility 04-03-2022 Note [id number] #[id number] [facility] Evaluation + Plan note Note Date & Type Note Facility Evaluation + Plan note No data available for this section [facility] Discharge instructions Note Date & Type Note Facility Hospital Discharge instructions No data available for this section [facility] Progress note Note Date & Type Note Facility Progress note No data available for this section [facility] Summary Purpose Family History No Family History Records FoundNo Family History Records Found Advance Directives No Advanced Directives Records FoundNo Advanced Directives Records Found Additional Source Comments Care Team (unrecognized sect ion and content) Personnel Name: RANJANA TRAYLOR MD Address: [address] [place] [id number] Personnel Name: RANJANA TRAYLOR MD Address: Address: [address] [place], [place] [id number] [address] (unrecognized sect ion and content) No Status Records FoundNo Status Records Found INFORMATION SOURCE (unrecogn ized section and content) DATE CREATED AUTHOR 08/07/2022 Beck Marcellus [facility] DATE CREATED AUTHOR AUTHOR'Shyann LOPEZ 02/08/2023 [place] [...] BE BASED ON THE PRIMARY CLINICAL RECORDS. [facility] [employer] provides no warranty or guarantee of the accuracy or completeness of information in this document.
[2024-07-16 22:39] VITALS: BP 164/108; PULSE 97; TEMP 36.8; O2SAT 99; BMI 24.0
[2024-07-16] MEDS: FLUOXETINE HCL 20 MG CAPSULE 60 MG PO (23:26)
[2024-07-16] MEDS: OLANZapine 5 MG TABLET 2.5 MG PO (23:26)
[2024-07-17] VITALS (7 sets, daily range): BP systolic 141–162; BP diastolic 77–97; PULSE 70–89; TEMP 36.5–36.7; O2SAT 95–98
[2024-07-17] MEDS: 0.9 % SODIUM CHLORIDE 1,000 ML 150 ML IV ×2 (01:43→07:59)
[2024-07-17] MEDS: ONDANSETRON PF 4 MG/2 ML VIAL IV ×2 (03:34→10:48)
[2024-07-17 06:31] LABS: Basophils Percent Auto 0.2 % (0.2-2.0); Eosinophils Percent Auto 0.1 % (0.9-7.0); Hematocrit 48.2 % (42.0-54.0); Hemoglobin 15.2 g/dL (14.0-18.0); Immature Granulocytes Pct Auto 0.5 % (0.0-0.5); Lymphocytes Absolute Auto 1.5 10^3/uL (1.2-3.8); Lymphocytes Percent Auto 7.7 % (20.5-60.0); Mean Corpuscular HGB Conc 31.5 g/dL (29.9-35.2); Mean Corpuscular Hemoglobin 29.5 pg (25.9-34.0); Mean Corpuscular Volume 93.6 fL (80.0-94.0); Mean Platelet Volume 10.3 fL (9.5-13.5); Monocytes Absolute Auto 1.9 10^3/uL (0.3-0.8); Monocytes Percent Auto 10.1 % (1.7-12.0); Neutrophils Absolute Auto 15.5 10^3/uL (1.4-6.5); Neutrophils Percent Auto 81.4 % (43.0-75.0); Platelet Count 417 10^3/uL (150-450); Red Blood Count 5.15 10^6/uL (4.70-6.10); Red Cell Distribution Width 13.5 % (11.0-15.0)
[2024-07-17 06:46] LABS: Alanine Aminotransferase 25 U/L (16-63); Albumin Globulin Ratio 1.1; Alkaline Phosphatase 100 U/L (46-116); Anion Gap 14.6; Aspartate Amino Transferase 21 U/L (15-37); BUN Creatinine Ratio 28.6; Bilirubin Total 1.8 mg/dL (0.2-1.0); Calcium 8.9 mg/dL (8.5-10.1); Carbon Dioxide 26.7 mmol/L (21.0-32.0); Chloride 109 mmol/L (98-107); Estimated GFR (African America 34 (>=60); Estimated GFR (Non-African Ame 28 (>=60); Globulin 3.7 g/dL; Glucose 114 mg/dL (74-106); Potassium 4.3 mmol/L (3.5-5.1); Sodium 146 mmol/L (136-145); Total Protein 7.7 g/dL (6.4-8.2)
[2024-07-17 06:58] LABS: Lactate/Lactic Acid 1.2 mmol/L (0.4-2.0)
[2024-07-17] MEDS: AMLODIPINE BESYLATE 5 MG TABLET 10 MG PO (08:04)
[2024-07-17] MEDS: OMEPRAZOLE 20 MG CAPSULE.DR PO (08:05)
[2024-07-17] MEDS: SODIUM CHLORIDE 0.45 % 1,000 ML 125 ML IV ×2 (09:46→16:59)
--- NOTE | 2024-07-17 11:12 | PM.HP ---
HPI H&P: HPI History of Present Illness Chief complaint: acute Renal Cannabis Abuse Cyclical Vomiting Syndr Narrative: 43-year-old male with history of cannabis hyperemesis syndrome, cyclic vomiting syndrome presented to ER with intractable nausea, vomiting and generalized abdominal pain that was going on since Friday and progressively worsened to a point where he could not tolerate oral intake. Despite recurrent admissions for similar problem, he continues to use marijuana on a regular basis. On arrival, workup in ER revealed severe acute kidney injury with creatinine of 4.57, leukocytosis of 28,000, and lactic acidosis of 3.2. Patient had an abdominal x-ray that did not reveal any significant intra-abdominal pathology. He was admitted overnight and started on IV hydration and supportive care. Patient still reports and feels nausea along with anorexia. He did not have any episode of vomiting overnight. He is still complaining of mild generalized abdominal pain. Overall he feels better compared to arrival but is still feels very weak/lethargic and is clinically dehydrated despite aggressive IV hydration overnight. Patient denies cough, shortness of breath, dysuria, constipation or diarrhea. Opioid HPI Opioid Management Most Recent Pain and Opioid Data: Last Pain Scale 1 05/23/24 13:00 Last Pain Assessment 07/17/24 10:57 Last ORT Total Score 18 07/16/24 22:39 Last ORT Risk Category High Risk 07/16/24 22:39 Ur Phencyclidine Scrn Negative (NEGATIVE) 05/22/24 19:44 Review of Systems ROS Status of ROS 10 or more systems reviewed and unremarkable except as noted in history and below [facility] Medical History (Updated 07/17/24 @ 11:28 by Shaikh Keyona MD) Benign essential HTN ?I10 - Essential (primary) hypertension (ICD-10) Bipolar 1 disorder ?F31.9 - Bipolar disorder, unspecified (ICD-10) Emphysema of lung ?J43.9 - Emphysema, unspecified (ICD-10) Marijuana abuse, continuous ?F12.10 - Cannabis abuse, uncomplicated (ICD-10) Hyperbilirubinemia ?E80.6 - Other disorders of bilirubin metabolism (ICD-10) Elevated liver enzymes ?R74.8 - Abnormal levels of other serum enzymes (ICD-10) Abdominal pain ?R10.9 - Unspecified abdominal pain (ICD-10) Abdominal pain ?R10.9 - Unspecified abdominal pain (ICD-10) Pneumonia ?J18.9 - Pneumonia, unspecified organism (ICD-10) Anxiety ?F41.9 - Anxiety disorder, unspecified (ICD-10) Family History (Updated 02/06/24 @ 04:58 by Kelsie Fitch RN) Father Family history of CHF (congestive heart failure) Family history of hypertension Family history of myocardial infarction Family history of stroke Grandfather Family history of cancer Family history of myocardial infarction Family history of stroke Uncle Family history of cancer Grandmother Family history of diabetes mellitus Social History Within the past year, how often did you have a drink containing alcohol: never Within the past year, how often did you have six or more drinks on one occasion: never Score interpretation: A score less than 4 is consistent with normal alcohol consumption. Smoking status: Current every day smoker Do you use any of these nicotine containing products: vaping products Non-prescribed substance use: cannabis (any form) Highest level of school completed/degree received: high school graduate Are you now , , , , never or living with a partner: In a typical week, how many times do you talk on the telephone with family, friends, or neighbors: 3 or more times per week How often do you get together with friends or relatives: 3 or more times per week How often do you attend gnosticism or mandaen services: never Little interest or pleasure in doing things: not at all Feeling down, depressed, or hopeless: not at all Feel stressed/tense/nervous/anxious/difficulty sleeping: to some extent Do you think of yourself as: straight/heterosexual Gender Identity: male Meds Home Medications and Allergies Home Medications ?Medication ?Instructions ?Recorded ?Confirmed ?Type olanzapine 2.5 mg tablet 2.5 mg PO BEDTIME 07/16/23 07/16/24 History fluoxetine 60 mg tablet 60 mg PO QPM 11/04/23 07/16/24 History amlodipine 10 mg tablet (Norvasc) 10 mg PO DAILY #30 tabs 05/23/24 07/16/24 Rx omeprazole 20 mg capsule,delayed 20 mg PO DAILY 07/16/24 07/16/24 History release Allergies Allergy/AdvReac Type Severity Reaction Status Date / Time No Known Drug Allergies Allergy Verified 05/22/24 19:38 Exam Constitutional Vital Signs, click to edit/add: Last Vital Signs Temp 97.7 F 07/17/24 08:00 Pulse 76 07/17/24 08:00 Resp 20 07/17/24 08:00 BP 162/97 H 07/17/24 08:00 Pulse Ox 95 07/17/24 09:24 O2 Del Method Room Air 07/17/24 09:24 General appearance: cooperative, comfortable, lethargic and ill appearing [facility] Common normals: normocephalic and head/scalp atraumatic Respiratory Common normals: normal respiratory effort, no use of accessory muscles and clear to auscultation bilaterally Effort & inspection: able to speak in complete sentences Cardio Common normals: no JVD, regular rate, regular rhythm, S1 normal heart sound and S2 normal heart sound GI Common normals: Normal to inspection, nondistended, normoactive bowel sounds present, soft to palpation, non-tender and no hepatosplenomegaly Extremity Common normals: normal to inspection and full ROM Neuro Common normals: oriented x3, moves all extremities, no focal motor deficits and no sensory deficits noted Psych Common normals: mental status grossly normal, thought process normal, denies homicidal ideation and denies suicidal ideation Results Labs Labs: Short CBC 07/16/24 07/17/24 Range/Units 20:30 06:08 WBC 28.8 H 19.0 H (4.0-11.0) 10^3/uL Hgb 17.8 15.2 (14.0-18.0) g/dL Hct 54.3 H 48.2 (42.0-54.0) % Plt Count 592 H 417 (150-450) 10^3/uL BMP 07/16/24 07/17/24 21:23 06:08 Sodium 149 H 146 H Potassium 3.7 4.3 Chloride 104 109 H Carbon Dioxide 28.4 26.7 BUN 83.0 H* 71.0 H Creatinine 4.57 H 2.48 H Glucose 124 H 114 H Calcium 9.8 8.9 Liver Function 07/16/24 07/17/24 Range/Units 21:23 06:08 Total Bilirubin 1.8 H 1.8 H (0.2-1.0) mg/dL AST 25 21 (15-37) U/L ALT 31 25 (16-63) U/L Alkaline Phosphatase 131 H 100 (46-116) U/L Albumin 5.2 H 4.0 (3.4-5.0) g/dL Assessment and Plan Assessment and Plan (1) Cannabis hyperemesis syndrome concurrent with and due to cannabis abuse: Assessment and Plan: Patient presented with intractable nausea and vomiting, inability to tolerate oral intake likely secondary to cannabis hyperemesis syndrome. He is still feeling nauseous and has poor oral intake and appetite. Continue with supportive care including antiemetics, IV hydration. Advance diet as tolerated. (2) Acute kidney injury: Assessment and Plan: Patient has normal renal function at baseline. He presented with serum creatinine of 4.5. Likely prerenal from dehydration and is improving with IV hydration. His serum creatinine is 2.4 on morning labs. Continue with IV hydration. Monitor renal function closely including serum creatinine and urine output (3) Nausea and vomiting: Assessment and Plan: No episode of vomiting overnight. However he still feels quite nauseous and has poor oral intake. Advance diet as tolerated. Continue with Zofran as needed. Qualifiers: Vomiting type: unspecified Qualified Code(s): R11.2 - Nausea with vomiting, unspecified (4) Hypovolemia dehydration: Assessment and Plan: Still dehydrated on clinical exam. Feeling nauseous and has poor PO intake. Needs continued IV hydration. (5) Leukocytosis: Assessment and Plan: Presented with leukocytosis of 30,000. Most likely reactive because of severe dehydration. Patient is down to 19k. Monitor closely w/o abx. Qualifiers: Leukocytosis type: leukemoid reaction Qualified Code(s): D72.823 - Leukemoid reaction (6) Lactic acid acidosis: Assessment and Plan: due to hypovolemia and dehydration. Resolved with IV hydration. (7) Benign essential HTN: Assessment and Plan: BP reasonably controlled. C/w amlodipine. IV hydralazine as needed. (8) Bipolar 1 disorder: Assessment and Plan: C/w olanzapine and prozac. (9) Emphysema of lung: Assessment and Plan: no resp symptoms. Monitor. Qualifiers: Emphysema type: centrilobular Qualified Code(s): J43.2 - Centrilobular emphysema Plan Needs inpatient monitoring and treatment as patients need IV fluids, close hemodynamic monitoring along with monitoring of his renal function/UO/serum electrolytes and creatinine closely to ensure his renal function continues to improve with IV hydration. He is still nauseous and has poor PO intake and not expected to keep adequate hydration orally to make up for dehydration/hypovolemia.
[2024-07-17] MEDS: ALPRAZOLAM 0.5 MG TABLET PO (15:04)
[2024-07-17 16:33] LABS: Anion Gap 9.1; BUN Creatinine Ratio 31.6; Calcium 8.8 mg/dL (8.5-10.1); Carbon Dioxide 30.7 mmol/L (21.0-32.0); Chloride 107 mmol/L (98-107); Estimated GFR (African America 58 (>=60); Estimated GFR (Non-African Ame 48 (>=60); Glucose 103 mg/dL (74-106); Potassium 3.8 mmol/L (3.5-5.1); Sodium 143 mmol/L (136-145)
[2024-07-17] MEDS: FLUOXETINE HCL 20 MG CAPSULE 60 MG PO (21:00)
[2024-07-17] MEDS: OLANZapine 5 MG TABLET 2.5 MG PO (21:00)
[2024-07-18] MEDS: SODIUM CHLORIDE 0.45 % 1,000 ML 125 ML IV ×2 (00:39→08:16)
[2024-07-18] MEDS: ONDANSETRON PF 4 MG/2 ML VIAL IV (03:25)
[2024-07-18] MEDS: ALPRAZOLAM 0.5 MG TABLET PO (05:11)
[2024-07-18] MEDS: MAALOX (MAG HYDROX/ALUMINUM HYD/SIMETH) 30 ML ORAL.SUSP PO ×2 (05:11→09:06)
[2024-07-18 05:15] VITALS: O2SAT 94
[2024-07-18 05:40] VITALS: BP 147/95; PULSE 89; TEMP 36.5; O2SAT 94
[2024-07-18] MEDS: OMEPRAZOLE 20 MG CAPSULE.DR PO (08:16)
[2024-07-18] MEDS: AMLODIPINE BESYLATE 5 MG TABLET 10 MG PO (08:16)
--- NOTE | 2024-07-18 10:37 | PM.DS1 ---
DS: Providers Provider Date of admission: 07/16/24 22:23 Primary care physician: Non-Staff PhysicianMD Admitting clinician: Shaikh Keyona Attending physician on admission: Shaikh Keyona Consults: 07/16/24 Consult to Dietitian Routine Reason for consultation: weight loss Has provider been notified: No Attending physician on discharge: Shaikh Keyona Discharging clinician: Shaikh Keyona Anticipated date of discharge: 07/18/24 DS: Diagnosis Discharge Diagnosis (1) Cannabis hyperemesis syndrome concurrent with and due to cannabis abuse: (2) Acute kidney injury: (3) Nausea and vomiting: Qualifiers: Vomiting type: unspecified Qualified Code(s): R11.2 - Nausea with vomiting, unspecified (4) Hypovolemia dehydration: (5) Leukocytosis: Qualifiers: Leukocytosis type: leukemoid reaction Qualified Code(s): D72.823 - Leukemoid reaction (6) Lactic acid acidosis: (7) Benign essential HTN: (8) Bipolar 1 disorder: (9) Emphysema of lung: Qualifiers: Emphysema type: centrilobular Qualified Code(s): J43.2 - Centrilobular emphysema DS: Summary Hospital Course Hospital Course: 43-year-old male with history of cannabis hyperemesis syndrome, cyclic vomiting syndrome presented to ER with intractable nausea, vomiting and generalized abdominal pain that was going on since Friday and progressively worsened to a point where he could not tolerate oral intake. On arrival, workup in ER revealed severe acute kidney injury with creatinine of 4.57, leukocytosis of 28,000, and lactic acidosis of 3.2. Patient had an abdominal x-ray that did not reveal any significant intra-abdominal pathology. He was admitted for close monitoring and started on IV hydration and supportive care for his GI symptoms. Patient's clinical symptoms improved during the course of admission with improvement in his leukocytosis and serum creatinine. He is able to tolerate oral diet but is still feels little nauseous but denies vomiting for over 24 hours. Patient is medically stable for discharge. I will call in oral Zofran as needed for nausea and vomiting. Patient requested oral dicyclomine as needed as it helps her abdominal cramps. Patient provided education and counseling on cannabis abuse and recommended that he refrains from marijuana use to avoid exacerbation of his cyclic vomiting syndrome/cannabis hyperemesis syndrome Status at Discharge Functional status at discharge: independent ambulation Overall status at discharge: patient is back to baseline Time Spent with Patient Time attestation: Total time spent providing and/or coordinating discharge services: Time spent: greater than 30 minutes Exam Constitutional Vital Signs, click to edit/add: Last Vital Signs Temp 97.7 F 07/18/24 05:40 Pulse 89 07/18/24 05:40 Resp 18 07/18/24 05:40 BP 147/95 H 07/18/24 05:40 Pulse Ox 94 L 07/18/24 05:40 O2 Del Method Room Air 07/18/24 05:40 General appearance: cooperative and comfortable Respiratory Common normals: normal respiratory effort, no use of accessory muscles and clear to auscultation bilaterally Effort & inspection: able to speak in complete sentences Cardio Common normals: no JVD, regular rate, regular rhythm, S1 normal heart sound and S2 normal heart sound GI Common normals: Normal to inspection, nondistended, normoactive bowel sounds present, soft to palpation, non-tender and no hepatosplenomegaly Neuro Common normals: oriented x3, moves all extremities, no focal motor deficits and no sensory deficits noted Psych Common normals: mental status grossly normal, thought process normal, denies homicidal ideation and denies suicidal ideation DS: Data Data Completed and Pending Labs on day of discharge: Labs from last 24 hours 07/17/24 15:57 Sodium 143 Potassium 3.8 Chloride 107 Carbon Dioxide 30.7 Anion Gap 9.1 BUN 50.0 H Creatinine 1.58 H Est GFR ( Amer) 58 L Est GFR (Non-Af Amer) 48 L BUN/Creatinine Ratio 31.6 Glucose 103 Calcium 8.8 Discharge Plan Discharge Disposition: Home, Self-Care Condition: Good Discharge Medications: New ondansetron 4 mg tablet,disintegrating 4 mg PO Q8H PRN (Reason: nausea and vomiting) 5 Days Qty: 10 0RF dicyclomine 20 mg tablet 20 mg PO QID PRN (Reason: abdominal pain) Qty: 30 0RF Continued olanzapine 2.5 mg tablet 2.5 mg PO BEDTIME amlodipine [Norvasc] 10 mg tablet 10 mg PO DAILY Qty: 30 0RF fluoxetine 60 mg tablet 60 mg PO QPM omeprazole 20 mg capsule,delayed release(DR/EC) 20 mg PO DAILY Activity: increase activity as tolerated Diet: advance to your usual diet Print Language: Yakut Patient Instructions: Acute Kidney Injury (DC), Cyclic Vomiting Syndrome (DC) Forms: Portal Instructions Follow Up Appointments: Call your PCP on Friday to schedule hospital follow up within a week
--- NOTE | 2024-07-19 14:16 | CM.DCFOLLOWU ---
Person spoke with:patient How are you feeling?well How is your pain?no pain currently Did you understand your discharge instructions?yes Do you have any questions about your discharge instructions?no Were you given any prescriptions at discharge?yes Were you able to get your prescriptions filled?yes Do you understand how to take your medications as ordered?yes Do you have any questions about your follow up appointment and do you plan to keep your follow up appointment? no questions, advised pt to call his PCP to get a follow up scheduled Is there anything else that you would like to discuss?no Questions/Comments/Concerns/Other:none
== END 2024-07-18 13:10 | disposition home or self-care (01) | DRG 469 ==
LOC: ER 21:56 → MS 07-17 10:39
PROVIDERS: Family Medicine; Registered Nurse; Admitting Provider Internal Medicine; Emergency Provider Internal Medicine; Visit Provider Internal Medicine
DX: N17.9 Acute kidney failure, unspecified (principal); R11.2 Nausea with vomiting, unspecified; F12.10 Cannabis abuse, uncomplicated; E86.0 Dehydration; E86.1 Hypovolemia; D72.823 Leukemoid reaction; E87.20 Acidosis, unspecified; I10 Essential (primary) hypertension; F31.9 Bipolar disorder, unspecified; R10.33 Periumbilical pain; K56.1 Intussusception; J43.2 Centrilobular emphysema; F41.9 Anxiety disorder, unspecified; Z79.899 Other long term (current) drug therapy; F17.290 Nicotine dependence, other tobacco product, uncomplicated; Z87.01 Personal history of pneumonia (recurrent)
CPT/HCPCS: 36415; 74019; 80048; 80053; 83605; 85007; 85025; 85027; 94761; 96361; 96374; 96375; 96376; 99285; G0378; J0360; J2405

== ENCOUNTER 2025-05-01 13:00 | Inpatient (IN) | payer OTHER, SELFPAY ==
[2025-05-01] VITALS (7 sets, daily range): BP systolic 148–175; BP diastolic 92–127; PULSE 81–108; TEMP 36.1–36.8; O2SAT 95–99; BMI 38.0; BMI 25.3
--- OUTSIDE RECORDS SUMMARY | 2025-05-01 13:11 | XMS_ITS | CCD ---
Author Organization [facility] Care Team Providers Care Risk Control Manager Name Role Phone RANJANA TRAYLOR Primary Care Physician [phone] COOPERLAnupam Attending Unavailable NILL, Anupam Bob Attending [...] BO Admitting Unavailable NITINFANTA Consulting Unavaila ble GEMBUSASHIA Consulting Unavailable SHAMMO, JEOVANY Admitting Unavailable SHAMMO, JEOVANY Attending Unavailable SHAMMO, JEOVANY Consulting Unavailable SHAMMO, JEOVANY Primary Care Unavailable MAKENZIE TURNER Attending Unavailable REQUEST, NONE LISTED Primary Care Unavaila MAKENZIE Shaw Consulting Unavailable MAKENZIE TURNER Admitting Unavailable JAILYN .EVELYN Consulting Unavailable JAILYN ., EVELYN Admitting Unavailable NADERER, DR RANJANA Samaniego Primary Care Unavailable JAILYN [...] NADERER, DR RANJANA Samaniego Primary Care Unavailable No Pcp, No Pcp Primary Care Provider Unavailabl e Services, [facility], [facility] Primary Care Provider YASMIN WOOD Attending Unavailable NANNETTE PEREZ Referring Unavailable SERVICES, [facility] Primary Care Unava ilable Allergies Allergy Classification Reported Allergen(s) Allergy Type Date of Onset Reaction(s) Facility (1 source) No Known Medication Allergies; Translations: [No Known Medication Allergies] Propensity to adverse reactions (disorder) [facility] Repository Medications Current Medications Medication Drug Class(es) Dates Sig (Normalized) Sig (Original) dicyclomine hydrochloride 20 mg oral tablet (2 sources) Anticholinergic Start: 01-26-2025 take 1 tablet by mouth three times daily as needed dicyclomine (BENTYL) 20 mg tablet Take 1 tablet (20 mg total) by mouth 3 (three) times a day as needed. 01/26/2025 Active FLUoxetine 60 mg oral tablet (2 sources) Serotonin Reuptake Inhibitor Start: 02-10-2025 take 1 tablet by mouth at bedtime FLUoxetine (PROzac) 60 MG tablet Take 1 tablet (60 mg total) by mouth before bedtime. 02/10/2025 Active OLANZapine 2.5 mg oral tablet (2 sources) Atypical Antipsychotic Start: 03-29-2025 take 1 tablet by mouth once daily OLANZapine (ZyPREXA) 2.5 mg tablet Take 1 tablet (2.5 mg total) by mouth nightly. 03/29/2025 Active omeprazole 20 mg delayed release oral capsule (4 sources) Proton Pump Inhibitor Start: 01-26-2025 take 1 capsule by mouth once daily as needed omeprazole (PriLOSEC) 20 mg capsule Take 1 capsule (20 mg total) by mouth daily as needed. 01/26/2025 Active Start: 07-02-2022 take 1 tablet by santos th once daily Prilosec OTC = 1 tab(s), Oral, Daily, Refills(s) 0 Start Date: 07/02/22 Status: Ordered Completed/Discontinued Medications Medication Drug Class(es) Dates Sig (Normalized) Sig (Original) capsaicin 0.75 mg/ml topical cream (13 sources) Start: 02-03-2021 End: 04-27-2025 capsicum (ZOSTRIX) 0.075 % topical cream Apply 1 application topically 3 (three) times a day. 28.3 g 02/03/2021 04/27/2025 Discontinued (Therapy completed) famotidine 20 mg oral tablet (13 sources) Histamine-2 Receptor Antagonist Start: 02-03-2021 End: 04-27-2025 take 1 tablet by mouth twice daily famotidine (PEPCID) 20 mg tablet Take 1 tablet (20 mg total) by mouth 2 (two) times a day. 30 tablet 02/03/2021 04/27/2025 Discontinued (Therapy completed) Problems Active Problems Problem Classification Problem Date [...] Chronic Immunizations and screening for infectious disease (4 sources) Encounter for screening for human immunodeficiency virus [HIV]; Translations: [Encounter for screening for other viral diseases] Onset: 3 01-26-2025 Episodic Malaise and fatigue (2 sources) Fatigue; Translations: [Other fatigue] Onset: 5 04-27-2025 Episodic Mood disorders (8 sources) Bipolar disorder; Translations: [Bipolar disorder, unspecified] 04-27-2025 Chronic Nausea and vomiting (9 sources) Nausea and vomiting; Translations: [Nausea with vomiting, unspecified] Onset: 2 Episodic 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 Other gastrointestinal disorders (1 source) Irritable bowel syndrome without diarrhea; Translations: [IRRITABLE BOWEL SYND W/O DIARRHEA] Onset: 2 Chronic Other gastrointestinal disorders (1 source) Diarrhea, unspecified; Translations: [DIARRHEA UNSPECIFIED] Onset: 3 Episodic Other lower respiratory disease (1 source) Snoring; Translations: [Snoring] 04-27-2025 Episodic Other lower respiratory disease (1 source) Snoring; Translations: [Snoring] Onset: 5 Episodic Other nutritional; endocrine; and metabolic disorders (1 source) Disorder of bilirubin metabolism; Translations: [Other disorders of bilirubin metabolism] Onset: 2 Chronic Other nutritional; endocrine; and metabolic disorders (2 sources) 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 Other nutritional; endocrine; and metabolic disorders (1 source) Other disorders of bilirubin metabolism; Translations: [OTH DISORDERS BILIRUBIN METABOLISM] Onset: 2 Chronic Other nutritional; endocrine; and metabolic disorders (2 sources) Overweight in adulthood with body mass index of 25 or more but less than 30; Translations: [Body mass index (BMI) 28.0-28.9, adult] 04-27-2025 Episodic Other nutritional; endocrine; and metabolic disorders (1 source) Body mass index (BMI) 28.0-28.9, adult; Translations: [Body mass index (BMI) 28.0-28.9, adult] Onset: 5 Episodic Other nutritional; endocrine; and metabolic disorders (1 source) Overweight; Translations: [Overweight] Onset: 5 Episodic Other screening for suspected conditions (not mental disorders or infectious disease) (3 sources) Encounter for screening for cardiovascular disorders; Translations: [Patient encounter status] Onset: 3 01-26-2025 Episodic Residual codes; unclassified (2 sources) Sleep apnea; Translations: [Sleep apnea, unspecified] 04-27-2025 Chronic Residual codes; unclassified (1 source) Sleep apnea, unspecified; Translations: [Sleep apnea, unspecified] Onset: 5 Chronic Substance-related disorders (1 source) Cannabis abuse, uncomplicated; Translations: [CANNABIS ABUSE UNCOMPLICATED] Onset: 2 Chronic Substance-related disorders (2 sources) Marijuana user; Translations: [Cannabis use, unspecified, uncomplicated] Onset: 5 04-27-2025 Episodic Unclassified (2 sources) Body mass index 20-24 - normal 07-02-2022 Unclassified (1 source) CONTACT W/AND (SUSP) EXPOS COVID-19; Translations: [CONTACT W/AND (SUSP) EXPOS COVID-19] Onset: 3 Unclassified (1 source) New Patient Onset: 5 Past or Other Problems Problem Classification Problem [...] 01-30-2023 HCV AB Non-Reactive Normal Non Reactive [facility] Comment on above: Performed By: #### L ACT #### [facility] [address] [address] [address] Etienne Fitch Interpretation: Comment Normal [facility] Comment on above: Result Comment: Not infected with HCV unless early or acute infection is suspected (which may be delayed in an immunocompromised individual), or other evidence exists to indicate HCV infection. Performed By: #### L ACT #### [facility] [address] [place], [place] [address] Dr. Etienne Fitch HIV 1 AND 2 WITH REFLEXon HIV Screen 4th Generation wRfx Non-Reactive Normal Non Reactive [facility] Comment on above: Result Comment: HIV Negative HIV-1/HIV-2 antibodies and HIV-1 p24 antigen were NOT detected. There is no laboratory evidence of HIV infection. Performed By: #### H IV12 #### [facility] [address] [address] [address] Etienne Fitch LIPID PROFILEon 01-29-2023 CHOL-HDL RATIO NORM SEE BELOW Normal [facility] Comment on above: Result Comment: 3.3 - 4.4 LOW RISK 4.4 - 7.1 AVERAGE RISK 7.1 - 11.0 MODERATE RISK >11.0 HIGH RISK Performed By: #### U MICRO, ERUR #### [facility] [address] [address] [address] Etienne Fitch Cholesterol [Mass/Vol] 196 mg/dL Normal <=200 [facility] Comment on above: Performed By: #### U MICRO, ERUR #### [facility] [address] [address] [address] Etienne Fitch Cholesterol in HDL [Mass/Vol] 78 mg/dL Critically high 40-60 [facility] Comment on above: Performed By: #### U MICRO, ERUR #### [facility] [address] [address] [address] Etienne Fitch Cholesterol in LDL [Mass/Vol] 106.6 mg/dL Normal [facility] Comment on above: Performed By: #### U MICRO, ERUR #### [facility] [address] [place] [address] Dr. Etienne Fitch Cholesterol.total /Cholesterol in HDL [Mass ratio] 2.5 {ratio} Normal [facility] Comment on above: Performed By: #### U MICRO, ERUR #### [facility] [address] [place] [address] Dr. Etienne Fitch HDL NORMAL > or = 60 mg/dl - LO W CARDIOVASCULAR RISK <40 mg/dl - HIGH CARDIOVASCULAR RISK Normal [facility] Comment on above: Performed By: #### U MICRO, ERUR #### [facility] [address] [address] [address] Etienne Fitch LDL CALC NORMAL SEE BELOW Normal [facility] Comment on above: Result Comment: <100 mg/dl OPTIMAL 100 - 129 mg/dl NEAR OR ABOVE OPTIMAL 130 - 159 mg/dl BORDERLINE HIGH 160 - 189 mg/dl HIGH >190 mg/dl VERY HIGH Performed By: #### U MICRO, ERUR #### [facility] [address] [place] [address] Dr. Etienne Fitch Triglyceride [Mass/Vol] 57 mg/dL Normal <=150 [facility] Comment on above: Performed By: #### U MICRO, ERUR #### [facility] [address] [address] [address] Etienne Fitch VLDL CALC 11.4 mg/dL Normal [facility] Comment on above: Performed By: #### U MICRO, ERUR #### [facility] [address] [address] [address] Etienne Fitch PROF CHEM 8 (BAS METB)on Anion gap [Moles/Vol] 7.4 mmol/L Normal [facility] Comment on above: Performed By: #### U MICRO, ERUR #### [facility] [address] [address] [address] Etienne Fitch Calcium [Mass/Vol] 10.0 mg/dL Normal 8.5-10.1 [facility] Comment on above: Performed By: #### U MICRO, ERUR #### [facility] [address] [place] [address] Dr. Etienne Fitch Chloride [Moles/Vol] 101 mmol/L Normal 98-107 [facility] Comment on above: Performed By: #### U MICRO, ERUR #### [facility] [address] [place] [address] Dr. Etienne Fitch CO2 [Moles/Vol] 34.0 mmol/L Critically high 21.0-32.0 [facility] Comment on above: Performed By: #### U MICRO, ERUR #### [facility] [address] [place] [address] Dr. Etienne Fitch Creatinine [Mass/Vol] 1.27 mg/dL Normal 0.70-1.30 [facility] Comment on above: Performed By: #### U MICRO, ERUR #### [facility] [address] [address] [address] Etienne Fitch EGFR-AF BOTSWANAN >60 Normal >=60 [facility] Comment on above: Performed By: #### U MICRO, ERUR #### [facility] [address] [address] [address] Etienne Fitch EGFR-NON AF BOTSWANAN >60 Normal >=60 [facility] Comment on above: Performed By: #### U MICRO, ERUR #### [facility] [address] [address] [address] Etienne Fitch Glucose [Mass/Vol] 116 mg/dL Critically high 74-106 [facility] Comment on above: Performed By: #### U MICRO, ERUR #### [facility] [address] [address] [address] Etienne Fitch Potassium [Moles/Vol] 4.4 mmol/L Normal 3.5-5.1 [facility] Comment on above: Performed By: #### U MICRO, ERUR #### [facility] [address] [place] [address] Dr. Etienne Fitch Sodium [Moles/Vol] 138 mmol/L Normal 136-145 [facility] Comment on above: Performed By: #### U MICRO, ERUR #### [facility] [address] [place] [address] Dr. Etienne Fitch Urea nitrogen [Mass/Vol] 33.0 mg/dL Critically high 7.0-18.0 [facility] Comment on above: Performed By: #### U MICRO, ERUR #### [facility] [address] [place] [address] Dr. Etienne Fitch Urea nitrogen/Creatini ne [Mass ratio] 26.0 mg/mg Normal [facility] Comment on above: Performed By: #### U MICRO, ERUR #### [facility] [address] [place] [address] Dr. Etienne Fitch CBC AUTO DIFFon 12-12-2022 BASO # 0.0 103/ul Normal 0.0-0.1 [facility] Comment on above: Performed By: #### C BC #### [facility] [address] [place] [address] Dr. Etienne Fitch Basophils/100 WBC (Bld) 0.2 % Normal 0.2-2.0 [facility] Comment on above: Performed By: #### C BC #### [facility] [address] [place] [address] Dr. Etienne Fitch EO # 0.0 103/ul Normal 0.0-0.7 [facility] Comment on above: Performed By: #### C BC #### [facility] [address] [place] [address] Dr. Etienne Fitch Eosinophils/100 WBC (Bld) 0.1 % Critically low 0.9-7.0 [facility] Comment on above: Performed By: #### C BC #### [facility] [address] [place] [address] Dr. Etienne Fitch Erythrocyte distribution width (RBC) [Ratio] 12.8 % Normal 11.0-15.0 [facility] Comment on above: Performed By: #### C BC #### [facility] [address] [place] [address] Dr. Etienne Fitch Hematocrit (Bld) [Volume fraction] 55.0 % Critically high 42.0-54.0 [facility] Comment on above: Performed By: #### C BC #### [facility] [address] [place] [address] Dr. Etienne Fitch Hemoglobin (Bld) [Mass/Vol] 18.5 g/dL Critically high 14.0-18.0 [facility] Comment on above: Performed By: #### C BC #### [facility] [address] [place] [address] Dr. Etienne Fitch IG # 0.07 10e3/ul Critically high 0.00-0.03 [facility] Comment on above: Performed By: #### C BC #### [facility] [address] [place] [address] Dr. Etienne Fitch IG % 0.5 % Normal 0.0-0.5 [facility] Comment on above: Performed By: #### C BC #### [facility] [address] [place] [address] Dr. Etienne Fitch LYMPH # 1.4 103/ul Normal 1.2-3.8 [facility] Comment on above: Performed By: #### C BC #### [facility] [address] [place] [address] Dr. Etienne Fitch Lymphocytes/100 WBC (Bld) 10.1 % Critically low 20.5-60.0 [facility] Comment on above: Performed By: #### C BC #### [facility] [address] [place] [address] Dr. Etienne Fitch MANUAL DIFF REQ NO Normal [facility] Comment on above: Performed By: #### C BC #### [facility] [address] [place] [address] Dr. Etienne Fitch MCH (RBC) [Entitic mass] 29.6 pg Normal 25.9-34.0 [facility] Comment on above: Performed By: #### C BC #### [facility] [address] [place] [address] Dr. Etienne Fitch MCHC (RBC) [Mass/Vol] 33.6 g/dL Normal 29.9-35.2 [facility] Comment on above: Performed By: #### C BC #### [facility] [address] [place] [address] Dr. Etienne Fitch MCV (RBC) [Entitic vol] 87.9 fL Normal 80.0-94.0 [facility] Comment on above: Performed By: #### C BC #### [facility] [address] [place] [address] Dr. Etienne Fitch MONO # 1.5 103/ul Critically high 0.3-0.8 [facility] Comment on above: Performed By: #### C BC #### [facility] [address] [place] [address] Dr. Etienne Fitch Monocytes/100 WBC (Bld) 11.3 % Normal 1.7-12.0 [facility] Comment on above: Performed By: #### C BC #### [facility] [address] [place] [address] Dr. Etienne Fitch NEUT # 10.6 103/ul Critically high 1.4-6.5 [facility] Comment on above: Performed By: #### C BC #### [facility] [address] [place] [address] Dr. Etienne Fitch Neutrophils/100 WBC (Bld) 77.8 % Critically high 43.0-75.0 [facility] Comment on above: Performed By: #### C BC #### [facility] [address] [address] [address] Etienne Fitch Platelet mean volume (Bld) [Entitic vol] 11.1 fL Normal 9.5-13.5 [facility] Comment on above: Performed By: #### C BC #### [facility] [address] [place] [address] Dr. Etienne Fitch PLT 371 103/ul Normal 150-450 [facility] Comment on above: Performed By: #### C BC #### [facility] [address] [address] [address] Etienne Fitch RBC 6.26 106/ul Critically high 4.70-6.10 [facility] Comment on above: Performed By: #### C BC #### [facility] [address] [place] [address] Dr. Etienne Fitch WBC 13.6 103/ul Critically high 4.0-11.0 [facility] Comment on above: Performed By: #### C BC #### [facility] [address] [place] [address] Dr. Etienne Fitch Covid-19 PCR ([facility])on 11-27 SARS-CoV-2 (COVID-19) RNA KWABENA+probe Ql (Unsp spec) Not detected Normal NOT DETECTED [facility] Comment on above: Result Comment: When diagnostic [...] for this test is supported by the Network Lead of Health and Human Service's declaration that [...] Performed By: #### U MICRO, ERUR #### [facility] [address] [address] [address] Etienne Fitch ER URINE PROFILEon 3 Bilirubin Ql (U) Negative Normal NEGATIVE [facility] Comment on above: Performed By: #### U MICRO, ERUR #### [facility] [address] [place] [address] Dr. Etienne Fitch Clarity (U) CLEAR Normal CLEAR [facility] Comment on above: Performed By: #### U MICRO, ERUR #### [facility] [address] [place] [address] Dr. Etienne Fitch Color (U) LT. YELLOW Normal YELLOW [facility] Comment on above: Performed By: #### U MICRO, ERUR #### [facility] [address] [place] [address] Dr. Etienne Fitch ERUAHD A micrscopic examina tion will be performed if indicated. Normal [facility] Comment on above: Performed By: #### U MICRO, ERUR #### [facility] [address] [place] [address] Dr. Etienne Fitch Glucose Ql (U) Negative Normal NEGATIVE [facility] Comment on above: Performed By: #### U MICRO, ERUR #### [facility] [address] [place] [address] Dr. Etienne Fitch Hemoglobin Ql (U) Negative Normal NEGATIVE [facility] Comment on above: Performed By: #### U MICRO, ERUR #### [facility] [address] [place] [address] Dr. Etienne Fitch Ketones Ql (U) Negative Normal NEGATIVE [facility] Comment on above: Performed By: #### U MICRO, ERUR #### [facility] [address] [place] [address] Dr. Etienne Fitch LEUKOCYTES Negative Normal NEGATIVE [facility] Comment on above: Performed By: #### U MICRO, ERUR #### [facility] [address] [place] [address] Dr. Etienne Fitch Nitrite Ql (U) Negative Normal NEGATIVE [facility] Comment on above: Performed By: #### U MICRO, ERUR #### [facility] [address] [place] [address] Dr. Etienne Fitch pH (U) 6.0 [pH] Normal 5-9 [facility] Comment on above: Performed By: #### U MICRO, ERUR #### [facility] [address] [place] [address] Dr. Etienne Fitch SPEC GRAVITY 1.015 Normal 1.005-<=1.02 5 [facility] Comment on above: Performed By: #### U MICRO, ERUR #### [facility] [address] [place] [address] Dr. Etienne Fitch UA PROTEIN Negative Normal NEGATIVE/ TRACE [facility] Comment on above: Performed By: #### U MICRO, ERUR #### [facility] [address] [place] [address] Dr. Etienne Fitch UR MICRO IND NOT INDICATED Normal [facility] Comment on above: Performed By: #### U MICRO, ERUR #### [facility] [address] [place] [address] Dr. Etienne Fitch Urobilinogen Qn (U) 0.2 {Nesha'U}/dL Normal 0.2 - 1.0 [facility] Comment on above: Performed By: #### U MICRO, ERUR #### [facility] [address] [place] [address] Dr. Etienne Fitch INFLUENZA A AND B AGon 12-12 INFLUANEGH SEE BELOW Normal [facility] Comment on above: Result Comment: Nega tive for Flu A protein angiten. Infection due to Flu A cannot be ruled out. Flu A angiten in the sample may be below the detection limit of the test. Performed By: #### I NFLUAB #### [facility] [address] [place] [address] Dr. Etienne Fitch INFLUBNEGH SEE BELOW Normal [facility] Comment on above: Result Comment: Nega tive for Flu B protein antigen. Infection due to Flu B cannot be ruled out. Flu B antigen in the sample may be below the detection limit of the test. Performed By: #### I NFLUAB #### [facility] [address] [place] [address] Dr. Etienne Fitch INFLUENZA A AG Negative Normal NEGATIVE SEE COMMENT [facility] Comment on above: Performed By: #### I NFLUAB #### [facility] [address] [place] [address] Dr. Etienne Fitch INFLUENZA B AG Negative Normal NEGATIVE SEE COMMENT [facility] Comment on above: Performed By: #### I NFLUAB #### [facility] [address] [place] [address] Dr. Etienne Fitch PROF 14(COMP METB)on 023 Albumin [Mass/Vol] 4.4 g/dL Normal 3.4-5.0 [facility] Comment on above: Performed By: #### U MICRO, ERUR #### [facility] [address] [place] [address] Dr. Etienne Fitch Albumin/Globulin [Mass ratio] 1.0 {ratio} Normal [facility] Comment on above: Performed By: #### U MICRO, ERUR #### [facility] [address] [place] [address] Dr. Etienne Fitch ALP [Catalytic activity/Vol] 107 U/L Normal 46-116 [facility] Comment on above: Performed By: #### U MICRO, ERUR #### [facility] [address] [place] [address] Dr. Etienne Fitch ALT [Catalytic activity/Vol] 23 U/L Normal 16-63 [facility] Comment on above: Performed By: #### U MICRO, ERUR #### [facility] [address] [place] [address] Dr. Etienne Fitch Anion gap [Moles/Vol] 19.1 mmol/L Normal [facility] Comment on above: Performed By: #### U MICRO, ERUR #### [facility] [address] [place] [address] Dr. Etienne Fitch AST [Catalytic activity/Vol] 24 U/L Normal 15-37 [facility] Comment on above: Performed By: #### U MICRO, ERUR #### [facility] [address] [address] [address] Etienne Fitch Bilirubin [Mass/Vol] 2.2 mg/dL Critically high 0.2-1.0 [facility] Comment on above: Performed By: #### U MICRO, ERUR #### [facility] [address] [address] [address] Etienne Fitch Calcium [Mass/Vol] 9.5 mg/dL Normal 8.5-10.1 [facility] Comment on above: Performed By: #### U MICRO, ERUR #### [facility] [address] [address] [address] Etienne Fitch Chloride [Moles/Vol] 102 mmol/L Normal 98-107 [facility] Comment on above: Performed By: #### U MICRO, ERUR #### [facility] [address] [place] [address] Dr. Etienne Fitch CO2 [Moles/Vol] 26.5 mmol/L Normal 21.0-32.0 [facility] Comment on above: Performed By: #### U MICRO, ERUR #### [facility] [address] [place] [address] Dr. Etienne Fitch Creatinine [Mass/Vol] 2.27 mg/dL Critically high 0.70-1.30 [facility] Comment on above: Performed By: #### U MICRO, ERUR #### [facility] [address] [place] [address] Dr. Etienne Fitch EGFR-AF BOTSWANAN 38 mL/min/1.73m2 Critically low >=60 [facility] Comment on above: Performed By: #### U MICRO, ERUR #### [facility] [address] [place] [address] Dr. Etienne Fitch EGFR-NON AF BOTSWANAN 32 mL/min/1.73m2 Critically low >=60 [facility] Comment on above: Performed By: #### U MICRO, ERUR #### [facility] [address] [place] [address] Dr. Etienne Fitch Globulin (S) [Mass/Vol] 4.4 g/dL Normal [facility] Comment on above: Performed By: #### U MICRO, ERUR #### [facility] [address] [place] [address] Dr. Etienne Fitch Glucose [Mass/Vol] 136 mg/dL Critically high 74-106 [facility] Comment on above: Performed By: #### U MICRO, ERUR #### [facility] [address] [place] [address] Dr. Etienne Fitch Potassium [Moles/Vol] 4.6 mmol/L Normal 3.5-5.1 [facility] Comment on above: Performed By: #### U MICRO, ERUR #### [facility] [address] [place] [address] Dr. Etienne Fitch Protein [Mass/Vol] 8.8 g/dL Critically high 6.4-8.2 [facility] Comment on above: Performed By: #### U MICRO, ERUR #### [facility] [address] [place] [address] Dr. Etienne Fitch Sodium [Moles/Vol] 143 mmol/L Normal 136-145 [facility] Comment on above: Performed By: #### U MICRO, ERUR #### [facility] [address] [place] [address] Dr. Etienne Fitch Urea nitrogen [Mass/Vol] 89.0 mg/dL Critically high 7.0-18.0 [facility] Comment on above: Performed By: #### U MICRO, ERUR #### [facility] [address] [place] [address] Dr. Etienne Fitch Urea nitrogen/Creatini ne [Mass ratio] 42.0 mg/mg Normal [facility] Comment on above: Performed By: #### U MICRO, ERUR #### [facility] [address] [place] [address] Dr. Etienne Fitch PROF CHEM 8 (BAS METB)on Anion gap [Moles/Vol] 12.4 mmol/L Normal [facility] Comment on above: Performed By: #### U MICRO, ERUR #### [facility] [address] [address] [address] Etienne Fitch Calcium [Mass/Vol] 8.9 mg/dL Normal 8.5-10.1 [facility] Comment on above: Performed By: #### U MICRO, ERUR #### [facility] [address] [address] [address] Etienne Fitch Chloride [Moles/Vol] 110 mmol/L Critically high 98-107 [facility] Comment on above: Performed By: #### U MICRO, ERUR #### [facility] [address] [address] [address] Etienne Fitch CO2 [Moles/Vol] 29.6 mmol/L Normal 21.0-32.0 [facility] Comment on above: Performed By: #### U MICRO, ERUR #### [facility] [address] [place] [address] Dr. Etienne Fitch Creatinine [Mass/Vol] 2.04 mg/dL Critically high 0.70-1.30 [facility] Comment on above: Performed By: #### U MICRO, ERUR #### [facility] [address] [address] [address] Etienne Fitch EGFR-AF BOTSWANAN 43 mL/min/1.73m2 Critically low >=60 [facility] Comment on above: Performed By: #### U MICRO, ERUR #### [facility] [address] [address] [address] Etienne Fitch EGFR-NON AF BOTSWANAN 36 mL/min/1.73m2 Critically low >=60 [facility] Comment on above: Performed By: #### U MICRO, ERUR #### [facility] [address] [address] [address] Etienne Fitch Glucose [Mass/Vol] 112 mg/dL Critically high 74-106 [facility] Comment on above: Performed By: #### U MICRO, ERUR #### [facility] [address] [address] [address] Etienne Fitch Potassium [Moles/Vol] 5.0 mmol/L Normal 3.5-5.1 [facility] Comment on above: Performed By: #### U MICRO, ERUR #### [facility] [address] [address] [address] Etienne Fitch Sodium [Moles/Vol] 147 mmol/L Critically high 136-145 [facility] Comment on above: Performed By: #### U MICRO, ERUR #### [facility] [address] [address] [address] Etienne Fitch Urea nitrogen [Mass/Vol] 79.0 mg/dL Critically high 7.0-18.0 [facility] Comment on above: Performed By: #### U MICRO, ERUR #### [facility] [address] [address] [address] Etienne Fitch Urea nitrogen/Creatini ne [Mass ratio] 38.7 mg/mg Normal [facility] Comment on above: Performed By: #### U MICRO, ERUR #### [facility] [address] [address] [address] Etienne Fitch Ambulatory Visit Summaryon 1 Ambulatory Visit Summary JITENDRA SERVIN :1980 Visit Date:08/07/2022 Ambulatory Visit Instructions Your Diagnosis Epigastric pain Nausea & vomiting Your Care Team Attending Physician - SAMIR MOCK, Anupam Bob Primary Care Physician - KYMBERLY MOCK, RANJANA This Is Your Medications List omeprazole (Prilosec [...] Nausea & vomiting RLQ abdominal pain Normal [facility] General Surgery Office/Clini c Noteon [...] Father. Heart disease: Mother. TIA: Mother. Normal [facility] Comment on above: Result Comment: Elec tronically Signed By: SAMIR MOCK, Anupam Thompson\Date and Time Signed: 08/07/22 13:24 EDT Reminderson 08-07-2022 Reminders - From: Harika Simmons LPN To: N - Clinical; Sent: 08/07/2022 13:07:35 EDT Show up: 06/23/2032 07:00:00 EDT Subject: colonoscopy recall Due Date/Time: 07/24/2032 07:00:00 EDT Reminder/Recall Patient is due for screening colonoscopy 07/24/2032. [facility] Pathology Noteon 07-29-2022 Pathology Note [id number]#1.00CD:127 [facility] Outside Colonoscopyon 2021 Outside Colonoscopy [id number]#1.00CD:127 [facility] RAD - MRI Reporton 2 RAD - MRI Report [id number]#1.00CD:127 [facility] Lab Reportson 07-22-2022 Lab Reports [id number]#1.00CD:127 [facility] RAD - MRI Reporton 2 RAD - MRI Report [id number]#1.00CD:127 [facility] Covid-19 PCR (CVDTBH)on 06-28 SARS-CoV-2 (COVID-19) RNA KWABENA+probe Ql (Unsp spec) Not detected Normal NOT DETECTED [facility] Comment on above: Result Comment: This test is not yet approved or cleared by the [place] FDA. When there are no FDA-approved or cleared tests available, and other criteria are met, FDA can make tests available under an emergency access mechanism called an Emergency Use Authorization (EUA). The EUA for this test is supported by the [place] of Health and Human Service's (HHS's) declaration [...] consistent with SARS-CoV-2. Performed By: #### C [facility] #### [facility] [address] [place] [address] Dr. Etienne Fitch MRI ABDOMEN WO CONon [...] by: ALEXA HOWARD Date: 2022-07-19 07:49 Normal [facility] Consent for Procedure/Surger yon 07-04-2022 Consent for Procedure/Surgery [id number]#[id number]:127 Normal [facility] Ambulatory Visit Summaryon 0 07-02-2022 Ambulatory Visit Summary JITENDRA SERVIN :1980 Visit Date:07/02/2022 Ambulatory Visit Instructions Your [...] Nausea & vomiting RLQ abdominal pain Normal [facility] ED Note-Physicianon 07-02-20 ED Note-Physician [id number]#1.00CD:127 Normal [facility] RAD - MISCon 06-27-2022 RAD - MISC [id number]#1.00CD:127 Normal [facility] AMYLASEon 06-15-2022 Amylase [Catalytic activity/Vol] 47 U/L Normal 25-115 [facility] Comment on above: Performed By: #### L ACT #### [facility] [address] [address] [address] Etienne Fitch CBC AUTO DIFFon 06-15-2022 BASO # 0.1 103/ul Normal 0.0-0.1 [facility] Comment on above: Performed By: #### U MICRO, ERUR #### [facility] [address] [address] [address] Etienne Fitch Basophils/100 WBC (Bld) 0.5 % Normal 0.2-2.0 [facility] Comment on above: Performed By: #### U MICRO, ERUR #### [facility] [address] [place] [address] Dr. Etienne Fitch EO # 0.0 103/ul Normal 0.0-0.7 [facility] Comment on above: Performed By: #### U MICRO, ERUR #### [facility] [address] [place] [address] Dr. Etienne Fitch Eosinophils/100 WBC (Bld) 0.1 % Critically low 0.9-7.0 [facility] Comment on above: Performed By: #### U MICRO, ERUR #### [facility] [address] [place] [address] Dr. Etienne Fitch Erythrocyte distribution width (RBC) [Ratio] 11.9 % Normal 11.0-15.0 [facility] Comment on above: Performed By: #### U MICRO, ERUR #### [facility] [address] [place] [address] Dr. Etienne Fitch Hematocrit (Bld) [Volume fraction] 48.4 % Normal 42.0-54.0 [facility] Comment on above: Performed By: #### U MICRO, ERUR #### [facility] [address] [place] [address] Dr. Etienne Fitch Hemoglobin (Bld) [Mass/Vol] 16.6 g/dL Normal 14.0-18.0 [facility] Comment on above: Performed By: #### U MICRO, ERUR #### [facility] [address] [place] [address] Dr. Etienne Fitch IG # 0.06 10e3/ul Critically high 0.00-0.03 [facility] Comment on above: Performed By: #### U MICRO, ERUR #### [facility] [address] [place] [address] Dr. Etienne Fitch IG % 0.4 % Normal 0.0-0.5 [facility] Comment on above: Performed By: #### U MICRO, ERUR #### [facility] [address] [place] [address] Dr. Etienne Fitch LYMPH # 0.8 103/ul Critically low 1.2-3.8 [facility] Comment on above: Performed By: #### U MICRO, ERUR #### [facility] [address] [place] [address] Dr. Etienne Fitch Lymphocytes/100 WBC (Bld) 5.0 % Critically low 20.5-60.0 [facility] Comment on above: Performed By: #### U MICRO, ERUR #### [facility] [address] [place] [address] Dr. Etienne Fitch MANUAL DIFF REQ NO Normal [facility] Comment on above: Performed By: #### U MICRO, ERUR #### [facility] [address] [place] [address] Dr. Etienne Fitch MCH (RBC) [Entitic mass] 30.9 pg Normal 25.9-34.0 [facility] Comment on above: Performed By: #### U MICRO, ERUR #### [facility] [address] [place] [address] Dr. Etienne Fitch MCHC (RBC) [Mass/Vol] 34.3 g/dL Normal 29.9-35.2 [facility] Comment on above: Performed By: #### U MICRO, ERUR #### [facility] [address] [place] [address] Dr. Etienne Fitch MCV (RBC) [Entitic vol] 90.1 fL Normal 80.0-94.0 [facility] Comment on above: Performed By: #### U MICRO, ERUR #### [facility] [address] [place] [address] Dr. Etienne Fitch MONO # 0.8 103/ul Normal 0.3-0.8 [facility] Comment on above: Performed By: #### U MICRO, ERUR #### [facility] [address] [place] [address] Dr. Etienne Fitch Monocytes/100 WBC (Bld) 5.3 % Normal 1.7-12.0 [facility] Comment on above: Performed By: #### U MICRO, ERUR #### [facility] [address] [place] [address] Dr. Etienne Fitch NEUT # 13.9 103/ul Critically high 1.4-6.5 [facility] Comment on above: Performed By: #### U MICRO, ERUR #### [facility] [address] [place] [address] Dr. Etienne Fitch Neutrophils/100 WBC (Bld) 88.7 % Critically high 43.0-75.0 [facility] Comment on above: Performed By: #### U MICRO, ERUR #### [facility] [address] [place] [address] Dr. Etienne Fitch Platelet mean volume (Bld) [Entitic vol] 10.9 fL Normal 9.5-13.5 [facility] Comment on above: Performed By: #### U MICRO, ERUR #### [facility] [address] [place] [address] Dr. Etienne Fitch PLT 424 103/ul Normal 150-450 [facility] Comment on above: Performed By: #### U MICRO, ERUR #### [facility] [address] [place] [address] Dr. Etienne Fitch RBC 5.37 106/ul Normal 4.70-6.10 [facility] Comment on above: Performed By: #### U MICRO, ERUR #### [facility] [address] [place] [address] Dr. Etienne Fitch WBC 15.7 103/ul Critically high 4.0-11.0 [facility] Comment on above: Performed By: #### U MICRO, ERUR #### [facility] [address] [place] [address] Dr. Etienne Fitch DRUG SCREEN RAPID (URINE)on 06-15-2022 AMP Negative Normal NEGATIVE [facility] Comment on above: Performed By: #### D RUGRPD #### [facility] [address] [place] [address] Dr. Etienne Fitch BAR Negative Normal NEGATIVE [facility] Comment on above: Performed By: #### D RUGRPD #### [facility] [address] [place] [address] Dr. Etienne Fitch BUP Negative Normal NEGATIVE [facility] Comment on above: Performed By: #### D RUGRPD #### [facility] [address] [place] [address] Dr. Etienne Fitch BZO Negative Normal NEGATIVE [facility] Comment on above: Performed By: #### D RUGRPD #### [facility] [address] [place] [address] Dr. Etienne Fitch MILTON Negative Normal NEGATIVE [facility] Comment on above: Performed By: #### D RUGRPD #### [facility] [address] [place] [address] Dr. Etienne Fitch CUT-OFFS SEE BELOW Normal [facility] Comment on above: Result Comment: AMP (Amphetamine): 500ng/mL, BAR (Barbituates): 200 ng/mL, BZO (Benzodiazepines): 150 ng/mL, BUP (Buprenorphine): 10 ng/mL, MILTON (Cocaine): 150 ng/mL, mAMP (Methamphetamine): 500 ng/mL, MTD (Methadone): 200 ng/mL, OPI (Opiates): 100 ng/mL, OXY (Oxycodone): 100 ng/mL, PCP (Phencyclidine): 25 ng/mL, PPX (Propoxyphene): 300 ng/mL, THC (Cannabinoids): 50 ng/mL, TCA (Trycyclic Antidepressants): 300 ng/mL Performed By: #### D RUGRPD #### [facility] [address] [place] [address] Dr. Etienne Fitch DRUG CUT HEADER DRUG CLASS TEST SYST EM CUT-OFF CONCENTRATIONS ARE FOLLOWS: Normal [facility] Comment on above: Performed By: #### D RUGRPD #### [facility] [address] [place] [address] Dr. Etienne Fitch mAMP Negative Normal NEGATIVE [facility] Comment on above: Performed By: #### D RUGRPD #### [facility] [address] [place] [address] Dr. Etienne Fitch MTD Negative Normal NEGATIVE [facility] Comment on above: Performed By: #### D RUGRPD #### [facility] [address] [address] [address] Etienne Fitch OPI Negative Normal NEGATIVE [facility] Comment on above: Performed By: #### D RUGRPD #### [facility] [address] [place] [address] Dr. Etienne Fitch OXY Negative Normal NEGATIVE [facility] Comment on above: Performed By: #### D RUGRPD #### [facility] [address] [place] [address] Dr. Etienne Fitch PCP Negative Normal NEGATIVE [facility] Comment on above: Performed By: #### D RUGRPD #### [facility] [address] [place] [address] Dr. Etienne Fitch PPX Negative Normal NEGATIVE [facility] Comment on above: Performed By: #### D RUGRPD #### [facility] [address] [place] [address] Dr. Etienne Fitch TCA Negative Normal NEGATIVE [facility] Comment on above: Performed By: #### D RUGRPD #### [facility] [address] [place] [address] Dr. Etienne Fitch THC Positive Abnormal NEGATIVE [facility] Comment on above: Performed By: #### D RUGRPD #### [facility] [address] [place] [address] Dr. Etienne Fitch ER URINE PROFILEon 2 Bilirubin Ql (U) MODERATE Abnormal NEGATIVE [facility] Comment on above: Performed By: #### U MICRO, ERUR #### [facility] [address] [place] [address] Dr. Etienne Fitch Clarity (U) CLEAR Normal CLEAR [facility] Comment on above: Performed By: #### U MICRO, ERUR #### [facility] [address] [place] [address] Dr. Etienne Fitch Color (U) DK. ORANGE Abnormal YELLOW [facility] Comment on above: Performed By: #### U MICRO, ERUR #### [facility] [address] [place] [address] Dr. Etienne Fitch ERUAHD A micrscopic examina tion will be performed if indicated. Normal [facility] Comment on above: Performed By: #### U MICRO, ERUR #### [facility] [address] [place] [address] Dr. Etienne Fitch Glucose Ql (U) Negative Normal NEGATIVE [facility] Comment on above: Performed By: #### U MICRO, ERUR #### [facility] [address] [place] [address] Dr. Etienne Fitch Hemoglobin Ql (U) Negative Normal NEGATIVE [facility] Comment on above: Performed By: #### U MICRO, ERUR #### [facility] [address] [address] [address] Etienne Fitch Ketones Ql (U) 40 mg/dl Abnormal NEGATIVE [facility] Comment on above: Performed By: #### U MICRO, ERUR #### [facility] [address] [place] [address] Dr. Etienne Fitch LEUKOCYTES Negative Normal NEGATIVE [facility] Comment on above: Performed By: #### U MICRO, ERUR #### [facility] [address] [place] [address] Dr. Etienne Fitch Nitrite Ql (U) Negative Normal NEGATIVE [facility] Comment on above: Performed By: #### U MICRO, ERUR #### [facility] [address] [place] [address] Dr. Etienne Fitch pH (U) 6.0 [pH] Normal 5-9 [facility] Comment on above: Performed By: #### U MICRO, ERUR #### [facility] [address] [place] [address] Dr. Etienne Fitch Protein (U) [Mass/Vol] 100 mg/dL Abnormal NEGATIVE/ TRACE [facility] Comment on above: Performed By: #### U MICRO, ERUR #### [facility] [address] [place] [address] Dr. Etienne Fitch SPEC GRAVITY >=1.030 Abnormal 1.005-<=1.02 5 [facility] Comment on above: Performed By: #### U MICRO, ERUR #### [facility] [address] [place] [address] Dr. Etienne Fitch UR MICRO IND INDICATED Normal [facility] Comment on above: Performed By: #### U MICRO, ERUR #### [facility] [address] [place] [address] Dr. Etienne Fitch Urobilinogen Qn (U) 1.0 {Nesha'U}/dL Normal 0.2 - 1.0 [facility] Comment on above: Performed By: #### U MICRO, ERUR #### [facility] [address] [place] [address] Dr. Etienne Fitch ETHANOL (BLD ALC)on 06-15-20 ALC NOTE NOTE: 80 mg/dl is th e legal limit for a blood alcohol level Normal [facility] Comment on above: Performed By: #### E TH #### [facility] [address] [place] [address] Dr. Etienne Fitch Ethanol [Mass/Vol] mg/dL Normal [facility] Comment on above: Performed By: #### E TH #### [facility] [address] [place] [address] Dr. Etienne Fitch LIPASEon 06-15-2022 Lipase [Catalytic activity/Vol] 32.0 U/L Critically low 73.0-393.0 [facility] Comment on above: Performed By: #### L ACT #### [facility] [address] [place] [address] Dr. Etienne Fitch PROF 14(COMP METB)on 022 Albumin [Mass/Vol] 5.4 g/dL Critically high 3.4-5.0 [facility] Comment on above: Performed By: #### L ACT #### [facility] [address] [place] [address] Dr. Etienne Fitch Albumin/Globulin [Mass ratio] 1.4 {ratio} Normal [facility] Comment on above: Performed By: #### L ACT #### [facility] [address] [place] [address] Dr. Etienne Fitch ALP [Catalytic activity/Vol] 93 U/L Normal 46-116 [facility] Comment on above: Performed By: #### L ACT #### [facility] [address] [address] [address] Etienne Fitch ALT [Catalytic activity/Vol] 19 U/L Normal 16-63 [facility] Comment on above: Performed By: #### L ACT #### [facility] [address] [place] [address] Dr. Etienne Fitch Anion gap [Moles/Vol] 18.2 mmol/L Normal [facility] Comment on above: Performed By: #### L ACT #### [facility] [address] [address] [address] Etienne Fitch AST [Catalytic activity/Vol] 23 U/L Normal 15-37 [facility] Comment on above: Performed By: #### L ACT #### [facility] [address] [place] [address] Dr. Etienne Fitch Bilirubin [Mass/Vol] 3.0 mg/dL Critically high 0.2-1.0 [facility] Comment on above: Performed By: #### L ACT #### [facility] [address] [place] [address] Dr. Etienne Fitch Calcium [Mass/Vol] 11.2 mg/dL Critically high 8.5-10.1 [facility] Comment on above: Performed By: #### L ACT #### [facility] Laboratory [address] [place] [address] Dr. Etienne Fitch Chloride [Moles/Vol] 102 mmol/L Normal 98-107 [facility] Comment on above: Performed By: #### L ACT #### [facility] [address] [address] [address] Etienne Fitch CO2 [Moles/Vol] 27.0 mmol/L Normal 21.0-32.0 [facility] Comment on above: Performed By: #### L ACT #### [facility] [address] [address] [address] Etienne Fitch Creatinine [Mass/Vol] 1.49 mg/dL Critically high 0.70-1.30 [facility] Comment on above: Performed By: #### L ACT #### [facility] [address] [address] [address] Etienne Fitch EGFR-AF BOTSWANAN >60 Normal >=60 [facility] Comment on above: Performed By: #### L ACT #### [facility] [address] [address] [address] Etienne Fitch EGFR-NON AF BOTSWANAN 51 mL/min/1.73m2 Critically low >=60 [facility] Comment on above: Performed By: #### L ACT #### [facility] [address] [address] [address] Etienne Fitch Globulin (S) [Mass/Vol] 4.0 g/dL Normal [facility] Comment on above: Performed By: #### L ACT #### [facility] [address] [address] [address] Etienne Fitch Glucose [Mass/Vol] 183 mg/dL Critically high 74-106 [facility] Comment on above: Performed By: #### L ACT #### [facility] [address] [address] [address] Etienne Fitch Potassium [Moles/Vol] 4.2 mmol/L Normal 3.5-5.1 [facility] Comment on above: Performed By: #### L ACT #### [facility] [address] [address] [address] Etienne Fitch Protein [Mass/Vol] 9.4 g/dL Critically high 6.4-8.2 [facility] Comment on above: Performed By: #### L ACT #### [facility] [address] [address] [address] Etienne Fitch Sodium [Moles/Vol] 143 mmol/L Normal 136-145 [facility] Comment on above: Performed By: #### L ACT #### [facility] [address] [address] [address] Etienne Fitch Urea nitrogen [Mass/Vol] 19.0 mg/dL Critically high 7.0-18.0 [facility] Comment on above: Performed By: #### L ACT #### [facility] [address] [address] [address] Etienne Fitch Urea nitrogen/Creatini ne [Mass ratio] 12.8 mg/mg Normal [facility] Comment on above: Performed By: #### L ACT #### [facility] [address] [address] [address] Etienne Fitch URINE MICROSCOPIC ONLYon BACTERIA TRACE Abnormal NONE SEEN [facility] Comment on above: Performed By: #### U MICRO, ERUR #### [facility] [address] [place] [address] Dr. Etienne Fitch Bacteria identified Cx Nom (U) NOT INDICATED Normal [facility] Comment on above: Performed By: #### U MICRO, ERUR #### [facility] [address] [place] [address] Dr. Etienne Fitch CAST SEEN Abnormal NONE SEEN [facility] Comment on above: Performed By: #### U MICRO, ERUR #### [facility] [address] [place] [address] Dr. Etienne Fitch Crystals LM Nom (Urine sed) NONE SEEN Normal NONE SEEN [facility] Comment on above: Performed By: #### U MICRO, ERUR #### [facility] [address] [place] [address] Dr. Etienne Fitch Epithelial cells LM Ql (Urine sed) NONE SEEN Normal NONE SEEN /RARE [facility] Comment on above: Performed By: #### U MICRO, ERUR #### [facility] [address] [place] [address] Dr. Etienne Fitch HYALINE CAST MODERATE Normal [facility] Comment on above: Performed By: #### U MICRO, ERUR #### [facility] [address] [address] [address] Etienne Fitch MUCOUS MODERATE Abnormal NONE SEEN [facility] Comment on above: Performed By: #### U MICRO, ERUR #### [facility] [address] [place] [address] Dr. Etienne Fitch RBC 0-2 Normal 0-2 [facility] Comment on above: Performed By: #### U MICRO, ERUR #### [facility] [address] [place] [address] Dr. Etienne Fitch WBC NONE SEEN Normal NONE SEEN [facility] Comment on above: Performed By: #### U MICRO, ERUR #### [facility] [address] [address] [address] Etienne Fitch XR ABD FLAT UP_PA [...] SHILPI THAPA Date: 2022-06-15 09:44 Normal [facility] ED Note-Physicianon 04-03-20 ED Note-Physician [id number] Normal [facility] CBC W MANUAL DIFFon 04-02-20 ATYPICAL LYMPH # Normal [facility] Comment on above: Performed By: #### U MICRO, ERUR #### [facility] [address] [place] [address] Dr. Etienne Fitch ATYPICAL LYMPH % Normal [facility] Comment on above: Performed By: #### U MICRO, ERUR #### [facility] [address] [address] [address] Etienne Fitch BAND # Normal 0.0-0.3 [facility] Comment on above: Performed By: #### U MICRO, ERUR #### [facility] [address] [address] [address] Etienne Fitch BAND % Normal 0-5 [facility] Comment on above: Performed By: #### U MICRO, ERUR #### [facility] [address] [place] [address] Dr. Etienne Fitch BASOM # 0.00 103/ul Normal 0.00-0.10 [facility] Comment on above: Performed By: #### U MICRO, ERUR #### [facility] [address] [place] [address] Dr. Etienne Fitch BASOM % 0.0 % Critically low 0.2-2.0 [facility] Comment on above: Performed By: #### U MICRO, ERUR #### [facility] [address] [place] [address] Dr. Etienne Fitch BLAST # Normal [facility] Comment on above: Performed By: #### U MICRO, ERUR #### [facility] [address] [place] [address] Dr. Etienne Fitch BLAST % Normal [facility] Comment on above: Performed By: #### U MICRO, ERUR #### [facility] [address] [place] [address] Dr. Etienne Fitch CORRECTED WBC Normal 4.0-11.0 [facility] Comment on above: Performed By: #### U MICRO, ERUR #### [facility] [address] [place] [address] Dr. Etienne Fitch EOS # 0.00 103/ul Normal 0.00-0.70 [facility] Comment on above: Performed By: #### U MICRO, ERUR #### [facility] [address] [place] [address] Dr. Etienne Fitch EOS% 0.0 % Critically low 0.9-7.0 [facility] Comment on above: Performed By: #### U MICRO, ERUR #### [facility] [address] [place] [address] Dr. Etienne Fitch HCT 43.5 % Normal 42.0-54.0 [facility] Comment on above: Performed By: #### U MICRO, ERUR #### [facility] [address] [place] [address] Dr. Etienne Fitch HGB 14.3 g/dl Normal 14.0-18.0 [facility] Comment on above: Result Comment: gett ing fluids Performed By: #### U MICRO, ERUR #### [facility] [address] [place] [address] Dr. Etienne Fitch LYMPHM # 3.30 103/ul Normal 1.20-3.80 [facility] Comment on above: Performed By: #### U MICRO, ERUR #### [facility] [address] [place] [address] Dr. Etienne Fitch LYMPHM% 20.0 % Critically low 20.5-60.0 [facility] Comment on above: Performed By: #### U MICRO, ERUR #### [facility] [address] [address] [address] Etienne Fitch MCH 30.9 pg Normal 25.9-34.0 [facility] Comment on above: Performed By: #### U MICRO, ERUR #### [facility] [address] [place] [address] Dr. Etienne Fitch MCHC 32.9 g/dl Normal 29.9-35.2 [facility] Comment on above: Performed By: #### U MICRO, ERUR #### [facility] [address] [place] [address] Dr. Etienne Fitch MCV 94.0 fL Normal 80.0-94.0 [facility] Comment on above: Performed By: #### U MICRO, ERUR #### [facility] [address] [place] [address] Dr. Etienne Fitch METAMYELOCYTE # Normal [facility] Comment on above: Performed By: #### U MICRO, ERUR #### [facility] [address] [place] [address] Dr. Etienne Fitch METAMYELOCYTE % Normal [facility] Comment on above: Performed By: #### U MICRO, ERUR #### [facility] [address] [place] [address] Dr. Etienne Fitch MONOM# 2.31 103/ul Critically high 0.30-0.80 [facility] Comment on above: Performed By: #### U MICRO, ERUR #### [facility] [address] [place] [address] Dr. Etienne Fitch MONOM% 14.0 % Critically high 1.7-12.0 [facility] Comment on above: Performed By: #### U MICRO, ERUR #### [facility] [address] [address] [address] Etienne Fitch MPV 10.5 fL Normal 9.5-13.5 [facility] Comment on above: Performed By: #### U MICRO, ERUR #### [facility] [address] [address] [address] Etienne Fitch MYELOCYTE # Normal [facility] Comment on above: Performed By: #### U MICRO, ERUR #### [facility] [address] [address] [address] Etienne Fitch MYELOCYTE % Normal [facility] Comment on above: Performed By: #### U MICRO, ERUR #### [facility] [address] [place] [address] Dr. Etienne Fitch NRBC Normal [facility] Comment on above: Performed By: #### U MICRO, ERUR #### [facility] [address] [address] [address] Etienne Fitch PLT 285 103/ul Normal 150-450 [facility] Comment on above: Performed By: #### U MICRO, ERUR #### [facility] [address] [place] [address] Dr. Etienne Fitch RBC 4.63 106/ul Critically low 4.70-6.10 [facility] Comment on above: Performed By: #### U MICRO, ERUR #### [facility] [address] [place] [address] Dr. Etienne Fitch RDW 12.8 % Normal 11.0-15.0 [facility] Comment on above: Performed By: #### U MICRO, ERUR #### [facility] [address] [address] [address] Etienne Fitch SEG # 10.89 103/ul Critically high 1.40-6.50 [facility] Comment on above: Performed By: #### U MICRO, ERUR #### [facility] [address] [place] [address] Dr. Etienne Fitch SEG % 66.0 % Normal 43.0-75.0 [facility] Comment on above: Performed By: #### U MICRO, ERUR #### [facility] [address] [place] [address] Dr. Etienne Fitch TOXIC GRANULATION 1+ Normal [facility] Comment on above: Performed By: #### U MICRO, ERUR #### [facility] [address] [place] [address] Dr. Etienne Fitch WBC 16.5 103/ul Critically high 4.0-11.0 [facility] Comment on above: Performed By: #### U MICRO, ERUR #### [facility] [address] [address] [address] Etienne Fitch PROF 14(COMP METB)on 022 Albumin [Mass/Vol] 3.2 g/dL Critically low 3.4-5.0 [facility] Comment on above: Performed By: #### L ACT #### [facility] [address] [place] [address] Dr. Etienne Fitch Albumin/Globulin [Mass ratio] 1.1 {ratio} Normal [facility] Comment on above: Performed By: #### L ACT #### [facility] [address] [place] [address] Dr. Etienne Fitch ALP [Catalytic activity/Vol] 55 U/L Normal 46-116 [facility] Comment on above: Performed By: #### L ACT #### [facility] [address] [place] [address] Dr. Etienne Fitch ALT [Catalytic activity/Vol] 28 U/L Normal 16-63 [facility] Comment on above: Performed By: #### L ACT #### [facility] [address] [place] [address] Dr. Etienne Fitch Anion gap [Moles/Vol] 12.6 mmol/L Normal [facility] Comment on above: Performed By: #### L ACT #### [facility] [address] [place] [address] Dr. Etienne Fitch AST [Catalytic activity/Vol] 20 U/L Normal 15-37 [facility] Comment on above: Performed By: #### L ACT #### [facility] [address] [address] [address] Etienne Fitch Bilirubin [Mass/Vol] 2.8 mg/dL Critically high 0.2-1.0 [facility] Comment on above: Performed By: #### L ACT #### [facility] [address] [address] [address] Etienne Fitch Calcium [Mass/Vol] 7.8 mg/dL Critically low 8.5-10.1 [facility] Comment on above: Performed By: #### L ACT #### [facility] [address] [address] [address] Etienne Fitch Chloride [Moles/Vol] 104 mmol/L Normal 98-107 [facility] Comment on above: Performed By: #### L ACT #### [facility] [address] [place] [address] Dr. Etienne Fitch CO2 [Moles/Vol] 28.0 mmol/L Normal 21.0-32.0 [facility] Comment on above: Performed By: #### L ACT #### [facility] [address] [place] [address] Dr. Etienne Fitch Creatinine [Mass/Vol] 0.97 mg/dL Normal 0.70-1.30 [facility] Comment on above: Performed By: #### L ACT #### [facility] [address] [place] [address] Dr. Etienne Fitch EGFR-AF BOTSWANAN >60 Normal >=60 [facility] Comment on above: Performed By: #### L ACT #### [facility] [address] [place] [address] Dr. Etienne Fitch EGFR-NON AF BOTSWANAN >60 Normal >=60 [facility] Comment on above: Performed By: #### L ACT #### [facility] [address] [place] [address] Dr. Etienne Fitch Globulin (S) [Mass/Vol] 2.9 g/dL Normal [facility] Comment on above: Performed By: #### L ACT #### [facility] [address] [place] [address] Dr. Etienne Fitch Glucose [Mass/Vol] 108 mg/dL Critically high 74-106 [facility] Comment on above: Performed By: #### L ACT #### [facility] [address] [address] [address] Etienne Fitch Potassium [Moles/Vol] 3.6 mmol/L Normal 3.5-5.1 [facility] Comment on above: Performed By: #### L ACT #### [facility] [address] [address] [address] Etienne Fitch Protein [Mass/Vol] 6.1 g/dL Critically low 6.4-8.2 [facility] Comment on above: Performed By: #### L ACT #### [facility] [address] [address] [address] Etienne Fitch Sodium [Moles/Vol] 141 mmol/L Normal 136-145 [facility] Comment on above: Performed By: #### L ACT #### [facility] [address] [address] [address] Etienne Fitch Urea nitrogen [Mass/Vol] 33.0 mg/dL Critically high 7.0-18.0 [facility] Comment on above: Performed By: #### L ACT #### [facility] [address] [address] [address] Etienne Fitch Urea nitrogen/Creatini ne [Mass ratio] 34.0 mg/mg Normal [facility] Comment on above: Performed By: #### L ACT #### [facility] [address] [address] [address] Etienne Fitch US SINGLE QUAD RT [...] ALEXA HOWARD Date: 2022-04-02 09:08 Normal [facility] CBC AUTO DIFFon 04-01-2022 BASO # 0.1 103/ul Normal 0.0-0.1 [facility] Comment on above: Performed By: #### U MICRO, ERUR #### [facility] [address] [place] [address] Dr. Etienne Fitch Basophils/100 WBC (Bld) 0.4 % Normal 0.2-2.0 [facility] Comment on above: Performed By: #### U MICRO, ERUR #### [facility] [address] [place] [address] Dr. Etienne Fitch EO # 0.0 103/ul Normal 0.0-0.7 [facility] Comment on above: Performed By: #### U MICRO, ERUR #### [facility] [address] [place] [address] Dr. Etienne Fitch Eosinophils/100 WBC (Bld) 0.0 % Critically low 0.9-7.0 [facility] Comment on above: Performed By: #### U MICRO, ERUR #### [facility] [address] [place] [address] Dr. Etienne Fitch Erythrocyte distribution width (RBC) [Ratio] 12.8 % Normal 11.0-15.0 [facility] Comment on above: Performed By: #### U MICRO, ERUR #### [facility] [address] [place] [address] Dr. Etienne Fitch Hematocrit (Bld) [Volume fraction] 55.1 % Critically high 42.0-54.0 [facility] Comment on above: Performed By: #### U MICRO, ERUR #### [facility] [address] [place] [address] Dr. Etienne Fitch Hemoglobin (Bld) [Mass/Vol] 18.3 g/dL Critically high 14.0-18.0 [facility] Comment on above: Performed By: #### U MICRO, ERUR #### [facility] [address] [place] [address] Dr. Etienne Fitch IG # 0.11 10e3/ul Critically high 0.00-0.03 [facility] Comment on above: Performed By: #### U MICRO, ERUR #### [facility] [address] [place] [address] Dr. Etienne Fitch IG % 0.5 % Normal 0.0-0.5 [facility] Comment on above: Performed By: #### U MICRO, ERUR #### [facility] [address] [place] [address] Dr. Etienne Fitch LYMPH # 1.2 103/ul Normal 1.2-3.8 [facility] Comment on above: Performed By: #### U MICRO, ERUR #### [facility] [address] [place] [address] Dr. Etienne Fitch Lymphocytes/100 WBC (Bld) 5.7 % Critically low 20.5-60.0 [facility] Comment on above: Performed By: #### U MICRO, ERUR #### [facility] [address] [place] [address] Dr. Etienne Fitch MANUAL DIFF REQ NO Normal [facility] Comment on above: Performed By: #### U MICRO, ERUR #### [facility] [address] [address] [address] Etienne Fitch MCH (RBC) [Entitic mass] 30.7 pg Normal 25.9-34.0 [facility] Comment on above: Performed By: #### U MICRO, ERUR #### [facility] [address] [place] [address] Dr. Etienne Fitch MCHC (RBC) [Mass/Vol] 33.2 g/dL Normal 29.9-35.2 [facility] Comment on above: Performed By: #### U MICRO, ERUR #### [facility] [address] [address] [address] Etienne Fitch MCV (RBC) [Entitic vol] 92.3 fL Normal 80.0-94.0 [facility] Comment on above: Performed By: #### U MICRO, ERUR #### [facility] [address] [place] [address] Dr. Etienne Fitch MONO # 1.6 103/ul Critically high 0.3-0.8 [facility] Comment on above: Performed By: #### U MICRO, ERUR #### [facility] [address] [place] [address] Dr. Etienne Fitch Monocytes/100 WBC (Bld) 7.4 % Normal 1.7-12.0 [facility] Comment on above: Performed By: #### U MICRO, ERUR #### [facility] [address] [place] [address] Dr. Etienne Fitch NEUT # 18.6 103/ul Critically high 1.4-6.5 [facility] Comment on above: Performed By: #### U MICRO, ERUR #### [facility] [address] [place] [address] Dr. Etienne Fitch Neutrophils/100 WBC (Bld) 86.0 % Critically high 43.0-75.0 [facility] Comment on above: Performed By: #### U MICRO, ERUR #### [facility] [address] [place] [address] Dr. Etienne Fitch Platelet mean volume (Bld) [Entitic vol] 10.3 fL Normal 9.5-13.5 [facility] Comment on above: Performed By: #### U MICRO, ERUR #### [facility] [address] [place] [address] Dr. Etienne Fitch PLT 447 103/ul Normal 150-450 [facility] Comment on above: Performed By: #### U MICRO, ERUR #### [facility] [address] [place] [address] Dr. Etienne Fitch RBC 5.97 106/ul Normal 4.70-6.10 [facility] Comment on above: Performed By: #### U MICRO, ERUR #### [facility] [address] [place], [place] [address] Dr. Etienne Fitch WBC 21.6 103/ul Critically high 4.0-11.0 [facility] Comment on above: Performed By: #### U MICRO, ERUR #### [facility] [address] [place], [place] [address] ABD/PELV W CONon [...] ALEXA HOWARD Date: 2022-04-01 15:11 Normal [facility] Covid-19 PCR (CVDTBH)on SARS-CoV-2 (COVID-19) RNA KWABENA+probe Ql (Unsp spec) Not detected Normal NOT DETECTED [facility] Comment on above: Result Comment: When diagnostic [...] for this test is supported by the Network Lead of Health and Human Service's declaration that [...] used). Performed By: #### C VDTBH #### [facility] [address] [place] [address] Dr. Etienne Fitch ER URINE PROFILEon 2 Bilirubin Ql (U) MODERATE Abnormal NEGATIVE [facility] Comment on above: Performed By: #### U MICRO, ERUR #### [facility] [address] [place] [address] Dr. Etienne Fitch Clarity (U) CLEAR Normal CLEAR [facility] Comment on above: Performed By: #### U MICRO, ERUR #### [facility] [address] [place] [address] Dr. Etienne Fitch Color (U) DK. ORANGE Abnormal YELLOW [facility] Comment on above: Performed By: #### U MICRO, ERUR #### [facility] [address] [place] [address] Dr. Etienne Fitch ERUAHD A micrscopic examina tion will be performed if indicated. Normal [facility] Comment on above: Performed By: #### U MICRO, ERUR #### [facility] [address] [place] [address] Dr. Etienne Fitch Glucose Ql (U) Negative Normal NEGATIVE [facility] Comment on above: Performed By: #### U MICRO, ERUR #### [facility] [address] [place] [address] Dr. Etienne Fitch Hemoglobin Ql (U) Negative Normal NEGATIVE [facility] Comment on above: Performed By: #### U MICRO, ERUR #### [facility] [address] [place] [address] Dr. Etienne Fitch Ketones Ql (U) Negative Normal NEGATIVE [facility] Comment on above: Performed By: #### U MICRO, ERUR #### [facility] [address] [place] [address] Dr. Etienne Fitch LEUKOCYTES Negative Normal NEGATIVE [facility] Comment on above: Performed By: #### U MICRO, ERUR #### [facility] [address] [place] [address] Dr. Etienne Fitch Nitrite Ql (U) Negative Normal NEGATIVE [facility] Comment on above: Performed By: #### U MICRO, ERUR #### [facility] [address] [place] [address] Dr. Etienne Fitch pH (U) 5.5 [pH] Normal 5-9 [facility] Comment on above: Performed By: #### U MICRO, ERUR #### [facility] [address] [place] [address] Dr. Etienne Fitch Protein (U) [Mass/Vol] 100 mg/dL Abnormal NEGATIVE/ TRACE [facility] Comment on above: Performed By: #### U MICRO, ERUR #### [facility] [address] [place] [address] Dr. Etienne Fitch SPEC GRAVITY >=1.030 Abnormal 1.005-<=1.02 5 [facility] Comment on above: Performed By: #### U MICRO, ERUR #### [facility] [address] [place] [address] Dr. Etienne Fitch UR MICRO IND INDICATED Normal [facility] Comment on above: Performed By: #### U MICRO, ERUR #### [facility] [address] [place] [address] Dr. Etienne Fitch Urobilinogen Qn (U) 1.0 {Nesha'U}/dL Normal 0.2 - 1.0 [facility] Comment on above: Performed By: #### U MICRO, ERUR #### [facility] [address] [place] [address] Dr. Etienne Fitch LACTATE/LACTIC ACIDon 06-06- 2022 Lactate [Moles/Vol] 1.8 mmol/L Normal 0.4-1.9 [facility] Comment on above: Performed By: #### U MICRO, ERUR #### [facility] [address] [place] [address] Dr. Etienne Fitch Lactate [Moles/Vol] 2.3 mmol/L Critically high 0.4-1.9 [facility] Comment on above: Result Comment: repe ated Performed By: #### L ACT #### [facility] [address] [place] [address] Dr. Etienne Fitch LIPASEon 04-01-2022 Lipase [Catalytic activity/Vol] 32.0 U/L Critically low 73.0-393.0 [facility] Comment on above: Performed By: #### U MICRO, ERUR #### [facility] [address] [place] [address] Dr. Etienne Fitch PROF 14(COMP METB)on 022 Albumin [Mass/Vol] 4.9 g/dL Normal 3.4-5.0 [facility] Comment on above: Performed By: #### U MICRO, ERUR #### [facility] [address] [place] [address] Dr. Etienne Fitch Albumin/Globulin [Mass ratio] 1.2 {ratio} Normal [facility] Comment on above: Performed By: #### U MICRO, ERUR #### [facility] [address] [place] [address] Dr. Etienne Fitch ALP [Catalytic activity/Vol] 82 U/L Normal 46-116 [facility] Comment on above: Performed By: #### U MICRO, ERUR #### [facility] [address] [place] [address] Dr. Etienne Fitch ALT [Catalytic activity/Vol] 37 U/L Normal 16-63 [facility] Comment on above: Performed By: #### U MICRO, ERUR #### [facility] [address] [place] [address] Dr. Etienne Fitch Anion gap [Moles/Vol] 13.2 mmol/L Normal [facility] Comment on above: Performed By: #### U MICRO, ERUR #### [facility] [address] [address] [address] Etienne Fitch AST [Catalytic activity/Vol] 31 U/L Normal 15-37 [facility] Comment on above: Performed By: #### U MICRO, ERUR #### [facility] [address] [address] [address] Etienne Fitch Bilirubin [Mass/Vol] 4.8 mg/dL Critically high 0.2-1.0 [facility] Comment on above: Performed By: #### U MICRO, ERUR #### [facility] [address] [address] [address] Etienne Fitch Calcium [Mass/Vol] 9.8 mg/dL Normal 8.5-10.1 [facility] Comment on above: Performed By: #### U MICRO, ERUR #### [facility] [address] [address] [address] Etienne Fitch Chloride [Moles/Vol] 98 mmol/L Normal 98-107 [facility] Comment on above: Performed By: #### U MICRO, ERUR #### [facility] [address] [address] [address] Etienne Fitch CO2 [Moles/Vol] 31.2 mmol/L Normal 21.0-32.0 [facility] Comment on above: Performed By: #### U MICRO, ERUR #### [facility] [address] [address] [address] Etienne Fitch Creatinine [Mass/Vol] 1.63 mg/dL Critically high 0.70-1.30 [facility] Comment on above: Performed By: #### U MICRO, ERUR #### [facility] [address] [address] [address] Etienne Fitch EGFR-AF BOTSWANAN 56 mL/min/1.73m2 Critically low >=60 [facility] Comment on above: Performed By: #### U MICRO, ERUR #### [facility] [address] [address] [address] Etienne Fitch EGFR-NON AF BOTSWANAN 46 mL/min/1.73m2 Critically low >=60 [facility] Comment on above: Performed By: #### U MICRO, ERUR #### [facility] [address] [address] [address] Etienne Fitch Globulin (S) [Mass/Vol] 4.1 g/dL Normal [facility] Comment on above: Performed By: #### U MICRO, ERUR #### [facility] [address] [address] [address] Etienne Fitch Glucose [Mass/Vol] 142 mg/dL Critically high 74-106 [facility] Comment on above: Performed By: #### U MICRO, ERUR #### [facility] [address] [address] [address] Etienne Fitch Potassium [Moles/Vol] 3.4 mmol/L Critically low 3.5-5.1 [facility] Comment on above: Performed By: #### U MICRO, ERUR #### [facility] [address] [place] [address] Dr. Etienne Fitch Protein [Mass/Vol] 9.0 g/dL Critically high 6.4-8.2 [facility] Comment on above: Performed By: #### U MICRO, ERUR #### [facility] [address] [place] [address] Dr. Etienne Fitch Sodium [Moles/Vol] 139 mmol/L Normal 136-145 [facility] Comment on above: Performed By: #### U MICRO, ERUR #### [facility] [address] [address] [address] Etienne Fitch Urea nitrogen [Mass/Vol] 40.0 mg/dL Critically high 7.0-18.0 [facility] Comment on above: Performed By: #### U MICRO, ERUR #### [facility] [address] [place] [address] Dr. Etienne Fitch Urea nitrogen/Creatini ne [Mass ratio] 24.5 mg/mg Normal [facility] Comment on above: Performed By: #### U MICRO, ERUR #### [facility] [address] [place] [address] Dr. Etienne Fitch TROPONIN, HIGH SENSITIVITYon 04-01-2022 HSTROP 44.4 pg/mL Normal 4.0-76.1 [facility] Comment on above: Result Comment: CUT- OFF POINTS HAVE BEEN ESTABLISHED BASED ON THE FOURTH UNIVERSAL DEFINITIONS OF MYOCARDIAL INFARCTION. THE UPPER REFERENCE LIMIT (URL) OF TROPONIN, DEFINED THE 99TH PERCENTILE OF cTnI DISTRIBUTION IN A REFERENCE POPULATION, HAS BEEN CONFIRMED THE DECISION THRESHOLD FOR [place] DIAGNOSIS. Performed By: #### U MICRO, ERUR #### [facility] [address] [place] [address] Dr. Etienne Fitch URINE MICROSCOPIC ONLYon BACTERIA NONE SEEN Normal NONE SEEN [facility] Comment on above: Performed By: #### U MICRO, ERUR #### [facility] [address] [place] [address] Dr. Etienne Fitch Bacteria identified Cx Nom (U) NOT INDICATED Normal [facility] Comment on above: Performed By: #### U MICRO, ERUR #### [facility] [address] [place] [address] Dr. Etienne Fitch CAST SEEN Abnormal NONE SEEN [facility] Comment on above: Performed By: #### U MICRO, ERUR #### [facility] [address] [place] [address] Dr. Etienne Fitch Crystals LM Nom (Urine sed) NONE SEEN Normal NONE SEEN [facility] Comment on above: Performed By: #### U MICRO, ERUR #### [facility] [address] [place] [address] Dr. Etienne Fitch Epithelial cells LM Ql (Urine sed) NONE SEEN Normal NONE SEEN /RARE [facility] Comment on above: Performed By: #### U MICRO, ERUR #### [facility] [address] [place] [address] Dr. Etienne Fitch MUCOUS NONE SEEN Normal NONE SEEN [facility] Comment on above: Performed By: #### U MICRO, ERUR #### [facility] [address] [place] [address] Dr. Etienne Fitch RBC NONE SEEN Abnormal 0-2 [facility] Comment on above: Performed By: #### U MICRO, ERUR #### [facility] [address] [address] [address] Etienne Fitch WBC 0-2 Abnormal NONE SEEN [facility] Comment on above: Performed By: #### U MICRO, ERUR #### [facility] [address] [address] [address] Etienne Fitch Vital Signs Date Time Vital Sign Value Performing Clinician Faci lity 04-27-2025 11:26-0400 Body height 182.9 cm Yasmin Wood VICE PRESIDENT OF ENGINEERING-DELI SLICER Work Phone: [facility] 04-27-2025 11:26-0400 Body mass index (BMI) [Ratio] 28.24 kg/m2 Yasminscot Wood VICE PRESIDENT OF ENGINEERING-DELI SLICER Work Phone: [facility] 04-27-2025 11:26-0400 Body weight 94.44 kg Yasminscot Wood VICE PRESIDENT OF ENGINEERING-DELI SLICER Work Phone: [facility] 04-27-2025 11:26-0400 Diastolic blood pressure 88 mm[Hg] Yasminscot Wood VICE PRESIDENT OF ENGINEERING-DELI SLICER Work Phone: [facility] 04-27-2025 11:26-0400 Heart rate 68 /min Yasminscot Wood VICE PRESIDENT OF ENGINEERING-DELI SLICER Work Phone: [facility] 04-27-2025 11:26-0400 SaO2% (BldA) [Mass fraction] 99 % Yasminscot Wood VICE PRESIDENT OF ENGINEERING-DELI SLICER Work Phone: [facility] 04-27-2025 11:26-0400 Systolic blood pressure 127 mm[Hg] Yasminscot Wood VICE PRESIDENT OF ENGINEERING-DELI SLICER Work Phone: [facility] 07-02-2022 13:15-0400 Blood Pressure Location Anupam POOLE [facility] 07-02-2022 13:15-0400 Diastolic blood pressure 74 mm[Hg] Anupam POOLE [facility] [place] 07-02-2022 13:15-0400 Heart rate 72 /min Anupam POOLE [facility] [place] 07-02-2022 13:15-0400 Respiratory rate 16 /min Anupam POOLE [facility] [place] 07-02-2022 13:15-0400 Systolic blood pressure 120 mm[Hg] Anupam POOLE [facility] [place] Encounters Encounter Date Encounter Type Care Provider Facility Start: 04-28-2025 End: 04-28-2025 Telephone encounter [facility] - [facility] Comment on above: Sleep Lab (PSG Order ) Start: 04-27-2025 End: 04-27-2025 Orders Only Nannette Perez APRN-EMAIL MARKETING EXECUTIVE Work Phone: [employer] Start: 04-27-2025 End: 04-27-2025 ambulatory [facility] Start: 04-27-2025 End: 04-27-2025 Office outpatient new 45 minutes [facility] VICE PRESIDENT OF ENGINEERING-DELI [employer]ICER Work Phone: [facility] Comment on above: Fatigue, unspecified type (Primary Dx); Sleep apnea, unspecified type; Snoring; BMI 28.0-28.9,adult; Overweight with body mass index (BMI) of 28 to 28.9 in adult; Marijuana use Start: 01-26-2025 End: 01-26-2025 Orders Only Nannette Perez VICE PRESIDENT OF ENGINEERING-EMAIL MARKETING EXECUTIVE Work Phone: [employer] Comment on above: Encounter for screen ing for other viral diseases Encounter for screen ing for cardiovascular disorders Encounter for genera l adult medical examination without abnormal findings Encounter for screen ing for human immunodeficiency virus (HIV) Encounter for screen ing for other suspected endocrine disorder Start: 01-26-2025 End: 01-26-2025 Patient encounter status Nannette Perez VICE PRESIDENT OF ENGINEERING-EMAIL MARKETING EXECUTIVE Work Phone: [facility] Start: 02-07-2023 Encounter for genera l adult medical examination without abnormal findings JEOVANY DUNCAN [facility] Start: 01-29-2023 End: 01-30-2023 ambulatory JEOVANY SHAMMO Facility:[facility] Start: 01-29-2023 End: 01-30-2023 Encounter for general adult medical examination without abnormal findings JEOVANY DUNCAN Facility:[facility] Start: 12-18-2022 End: 12-19-2022 ambulatory MAKENZIE TURNER Facility:[facility] Start: 12-12-2022 End: 12-12-2022 ambulatory EVELYN GLASER . Facility:[facility] Start: 08-07-2022 ambulatory Anupam POOLE Facility :[facility] Start: 08-07-2022 End: 08-07-2022 Patient encounter procedure Anupam POOLE General Surgery [facility] Start: 07-24-2022 Encounter for prepro cedural laboratory examination DR ANUPAM POOLE . [facility] Start: 07-24-2022 End: 07-25-2022 ambulatory Anupam POOLE Facility:[id number] Start: 07-20-2022 End: 07-21-[address] ANUPAM POOLE . Facility:[facility] Start: 07-20-2022 End: 07-21-2022 Encounter for preprocedural laboratory examination DR ANUPAM POOLE . Facility:[facility] Start: 07-17-2022 End: 07-18-[address] ANUPAM POOLE . Facility:[facility] Start: 07-02-2022 End: 07-03-2022 ambulatory Anupam POOLE Facility:[facility] Start: 07-02-2022 End: 07-02-2022 Patient encounter procedure Anupam POOLE General Surgery [facility] [place] Start: 06-15-2022 End: 06-15-2022 ambulatory EVELYN GLASER . Facility:[facility] Start: 04-23-2022 ambulatory Anupam POOLE Facility :[facility] Start: 04-02-2022 ambulatory Anupam POOLE Facility :[facility] Start: 04-01-2022 End: 04-02-[address] ALEXA HOWARD Facility: Procedures Date Procedure Procedure Detail Performing Clinician Start: 07-24-2022 Colonoscopy Anupam ELLIOTT Start: 07-24-2022 Esophagogastroduodenoscopy Anupam POOLE None (qualifier value) Elias POOLE Plan of Treatment Date Care Activity Detail Author Start: 11-11-2033 DTaP,Tdap and Td Vaccines (2 - Td or Tdap) DTaP,Tdap and Td Vaccines (2 - Td or Tdap) [facility] Start: 04-27-2026 Adult BMI Screening Adult BMI Screen ing [facility] Start: 04-27-2026 Tobacco Screening Tobacco Screening [facility] Start: 11-02-2025 End: 11-02-2025 Patient encounter procedure 11/02/2025 9:45 AM EST Office Visit [facility] [address] [place] [address] Yasmin Wood, VICE PRESIDENT OF ENGINEERING-DELI SLICER [address] [place] [address], [address] [address] [facility] Start: 06-27-2025 Influenza vaccination Influenza Vacc ine [facility] Start: 04-04-2025 End: 04-27-2026 CBC panel - Blood by Automated count CBC without diff Lab Routine Expected: 04/04/2025, Expires: 04/27/2026 [employer] Work Phone: Comment on above: Expected: 04/04/2025 , Expires: 04/27/2026 Start: 04-04-2025 End: 04-27-2026 Comprehensive metabolic 2000 panel - Serum or Plasma Comprehensive metabolic panel Lab Routine Expected: 04/04/2025, Expires: 04/27/2026 [employer] Work Phone: Comment on above: Expected: 04/04/2025 , Expires: 04/27/2026 Start: 04-04-2025 End: 04-27-2026 Hepatitis C virus Ab [Presence] in Serum or Plasma by Immunoassay Hepatitis C(HCV) Ab w/ Reflex to PCR Lab Routine Expected: 04/04/2025, Expires: 04/27/2026 [employer] Work Phone: Comment on above: Expected: 04/04/2025 , Expires: 04/27/2026 Start: 04-04-2025 End: 04-27-2026 HIV 1+2 Ab+HIV1 p24 Ag [Presence] in Serum or Plasma by Immunoassay HIV 1&2 AB/AG Screen (P24 AG) Lab Routine Expected: 04/04/2025, Expires: 04/27/2026 [employer] Work Phone: Comment on above: Expected: 04/04/2025 , Expires: 04/27/2026 Start: 04-04-2025 End: 04-27-2026 Lipid 1996 panel - Serum or Plasma Lipid profile Lab Routine Expected: 04/04/2025, Expires: 04/27/2026 [employer] Phone: Comment on above: Expected: 04/04/2025 , Expires: 04/27/2026 Start: 04-04-2025 End: 04-27-2026 TSH with Reflex TSH with Reflex Lab Routine Expected: 04/04/2025, Expires: 04/27/2026 [employer] Phone: Comment on above: Expected: 04/04/2025 , Expires: 04/27/2026 Start: 01-26-2025 End: 01-26-2026 CBC panel - Blood by Automated count CBC without diff Lab Routine Encounter for general adult medical examination without abnormal findings Expected: 01/26/2025, Expires: 01/26/2026 [employer] Work Phone: Comment on above: Expected: 01/26/2025 , Expires: 01/26/2026 Start: 01-26-2025 End: 01-26-2026 Comprehensive metabolic 2000 panel - Serum or Plasma Comprehensive metabolic panel Lab Routine Encounter for general adult medical examination without abnormal findings Expected: 01/26/2025, Expires: 01/26/2026 [employer] Phone: Comment on above: Expected: 01/26/2025 , Expires: 01/26/2026 Start: 01-26-2025 End: 01-26-2026 Hepatitis C(HCV) Ab w/ Reflex to PCR Hepatitis C(HCV) Ab w/ Reflex to PCR Lab Routine Encounter for screening for other viral diseases Expected: 01/26/2025, Expires: 01/26/2026 [employer] Work Phone: Comment on above: Expected: 01/26/2025 , Expires: 01/26/2026 Start: 01-26-2025 End: 01-26-2026 HIV 1&2 AB/AG Screen (P24 AG) HIV 1&2 AB/AG Screen (P24 AG) Lab Routine Encounter for screening for human immunodeficiency virus (HIV) Expected: 01/26/2025, Expires: 01/26/2026 [employer] Work Phone: Comment on above: Expected: 01/26/2025 , Expires: 01/26/2026 Start: 01-26-2025 End: 01-26-2026 Lipid 1996 panel - Serum or Plasma Lipid profile Lab Routine Encounter for screening for cardiovascular disorders Expected: 01/26/2025, Expires: 01/26/2026 [employer] Work Phone: Comment on above: Expected: 01/26/2025 , Expires: 01/26/2026 Start: 01-26-2025 End: 01-26-2026 TSH with Reflex TSH with Reflex Lab Routine Encounter for screening for other suspected endocrine disorder Expected: 01/26/2025, Expires: 01/26/2026 [employer] Work Phone: Comment on above: Expected: 01/26/2025 , Expires: 01/26/2026 Start: 06-27-2024 COVID-19 Vaccine ( season) [facility] Start: 1996 Adult BMI Follow Up Plan Adult BMI Follow Up Plan [facility] Start: 1996 Adult BMI Screening Adult [facility] Screen [facility] Start: 1990 Depression Screening Depression Scre ening [facility] Start: 1990 Tobacco Screening [facility]ening [facility] End: 04-27-2026 [facility]G Diagnostic [facility] Routine Sleep apnea, unspecified type 1 Occurrences starting 04/27/2025 until 04/27/2026 [facility] Work Phone: Comment on above: 1 Occurrences starti ng 04/27/2025 until 04/27/2026 Immunizations Immunization Date Immunization Notes Care Provider Aneesh moore 11-11-2023 influenza virus vaccine, unspecified formulation Nannette Tarun VICE PRESIDENT OF ENGINEERING-EMAIL MARKETING 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 1978 Unknown [id number] 1978 Unknown [id number] 1978 Unknown [id number] 1978 Unknown [id number] 1978 Unknown [id number] 1978 Unknown [id number] 1978 Unknown [id number] 1978 Unknown [id number] 1978 Unknown [id number] 1978 Unknown [id number] 1978 Unknown [id number] 1978 Unknown [id number] 1978 Unknown [id number] 10-27-1961 Unknown [id number] Social History Date Type Detail Facility Start: 07-02-2022 End: 04-27-2025 Tobacco smoking status Ex-smoker (finding) [facility] [place] Tobacco smoking status Smokeless tobacco user within last 30 days [facility] [place] Start: 02-03-2021 End: 04-27-2025 Sex Assigned At Male [facility] [place] Tobacco smoking stat [facility] Tobacco smoking consumption unknown [facility] Start: 02-03-2021 End: 04-27-2025 History of Social function [facility] Start: 1980 Sex assigned at Not on file P [facility] Start: 06-01-2015 Sex Male (finding) [facility] Start: 10-27-1994 End: 10-27-2013 History of tobacco use Current smoker [facility] Start: 10-27-1994 End: 10-27-2013 History of tobacco use Cigarette Smoker [facility] Start: 04-27-2025 Tobacco use and exposure Former smokeless tobacco user [facility] History of tobacco use Chews Tobacco [facility] Start: 04-27-2025 Alcoholic beverage intake Lifetime non-drinker (finding) [facility] Functional Status Date Assessment Result Facility 07-02-2022 Functional Status N/A [facility] Clinical Notes 04-03-2022 to 04-28-2025 Telephone Encounter - Kira Galvez - 04/28/2025 4:06 PM EDTTelephone Encounter - Kira Galvez - 04/28/2025 4:06 PM EDTSLANDRY Keith - 04/27/2025 11:00 AM EDTPatient Instructions Note Date & Type Note Facility 04-28-2025 Miscellaneous Notes 04/27 Order received 1st call to schedule pt's phone is not accepting messages sent letter PSG Order and 04/27 Nina notes in epic documented in this encounter [facility] 04-28-2025 Telephone encounter Note 04/27 Order received 1st call to schedule pt's phone is not accepting messages sent letter PSG Order and 04/27 Nina notes in epic [facility] 04-27-2025 History of Present illness Narrative Images from the original note were not included. Chief Complaint: Jitendra Servin is a 44 y.o. male present for initial visit regarding suspected TWIN. HPI Sleep Questionnaire 04/27/2025 11:32 AM EDT - Filed by KASRTEN Li Have you previously had a sleep study? No Do you have a partner (girlfriend/boyfriend, spouse, etc) ? Yes Do you or your bed partner currently notice any of the following symptoms? Excessive daytime sleepiness No Frequent snoring Yes Snore yourself awake from sleep No Witnessed apneas (holding breath during sleep) Yes Waking up choking, gasping or short of breath Yes Excessively sweating overnight Yes Waking up with dry mouth or sore throat No Morning headaches No Waking up to urinate at night Yes Nighttime heartburn interfering with sleep No Frequent disturbing dreams or nightmares No Sleep walking No Unusual behaviors during sleep No Injury to yourself or partner during sleep No Imagine seeing or hearing things that are not real as you fall asleep or wake up No Momentary inability to move body (paralysis) as falling askeep or waking up No Insomnia (difficulty falling asleep or staying asleep) No Teeth clenching/grinding No Waking up disoriented / confused No Do you currently receive medical equipment for sleep conditions? No Have you had any other treatments for sleep apnea? No How likely are you to doze off or fall asleep in the following situations, in contrast to feeling just tired? Sitting and reading slight chance of dozing Watching TV slight chance of dozing Sitting inactive in a public place (e.g. a theater or a meeting) no chance of dozing As a passenger in a car for an hour without a break slight chance of dozing Lying down to rest in the afternoon when circumstances permit high chance of dozing Sitting and talking to someone no chance of dozing Sitting quietly after a lunch without alcohol no chance of dozing In a car, while stopped for a few minutes in traffic no chance of dozing Weekday Sleep Schedule What time do you get into bed? 11:00 PM What time do you try to go to sleep? 11:00 PM Time it takes to fall asleep (minutes) 5 What time do you wake up? 6:30 AM What time do you get out of bed? 6:30 AM Weekend Sleep Schedule What time do you get into bed? 11:00 PM What time do you try to go to sleep? 11:00 PM Time it takes to fall asleep (minutes) 5 What time do you wake up weekends? 6:30 AM What time do you get out of bed? 6:30 AM Do you watch TV, read or use phone/computer in bed? No Number of tbrqmi-jr-abh-night awakenings per night? 1 Cause of awakenings (if applicable): bathroom Total average number of hours of sleep per night: 7.5 How many naps do you take a day and for how long? no naps Do you feel refreshed after your naps? N/A Do you do shift work or work overnights? No Patient reports sleep is awful for her due to the snoring and witnessed apnea. ETOH: none Marijuana: Edibles and smoke daily Caffeine: 2 per day Tobacco: none Family history of TWIN: none Denies any dyspnea, fevers, chills, chest pain or hemoptysis. EPWORTH SLEEPINESS SCALE 04/27/2025 11:00 AM [place] Sleepiness Scale Sitting and Reading 1 Watching TV 1 Sitting inactive in a public place (theater, meeting) 0 As a passenger in a car for an hour without a break 1 Lying down in the afternoon to rest 3 Sitting and talking to someone 0 Sitting quietly after lunch (without alcohol) 0 In a car, while stopped for a few minutes in traffic 0 Total 6 OARRS REVIEWED Reviewed: no PMH PERTINENT HISTORY His pertinent medical history includes Past Medical History: Diagnosis Date Bipolar disorder, unspecified ([facility]) CURRENT MEDICATIONS Reviewed with patient. Current Outpatient Medications: dicyclomine (BENTYL) 20 mg tablet, Take 1 tablet (20 mg total) by mouth 3 (three) times a day as needed., Disp: , Rfl: FLUoxetine (PROzac) 60 MG tablet, Take 1 tablet (60 mg total) by mouth before bedtime., Disp: , Rfl: OLANZapine (ZyPREXA) 2.5 mg tablet, Take 1 tablet (2.5 mg total) by mouth nightly., Disp: , Rfl: omeprazole (PriLOSEC) 20 mg capsule, Take 1 capsule (20 mg total) by mouth daily as needed., Disp: , Rfl: Vitals: 04/27/25 1126 BP: 127/88 Pulse: 68 SpO2: 99% Weight: 94.4 kg (208 lb 3.2 oz) Height: 182.9 cm (6') ALLERGIES Reviewed with patient. Patient has no known allergies. FAMILY HISTORY History reviewed. No pertinent family history. SOCIAL HISTORY Social History Socioeconomic History Marital status: Spouse name: Pat Number of children: 4 Tobacco Use Smoking status: Former Current packs/day: 0.00 Average packs/day: 2.0 packs/day for 19.0 years (38.0 ttl pk-yrs) Types: Cigarettes Start date: 1994 Quit date: 2013 Years since quittin.5 Smokeless tobacco: Former Types: Chew Vaping Use Vaping status: Every Day Start date: 04/27/2014 Substances: Nicotine, THC, CBD, Flavoring Devices: Disposable Substance and Sexual Activity Alcohol use: Never Drug use: Yes Frequency: 20.0 times per week Types: Marijuana Comment: 3-4 times daily TRAVEL HISTORY Denies recent travel. ROS All 11 systems have been reviewed: Review of Systems Constitutional: Positive for fatigue. Negative for chills and fever. Respiratory: Negative for cough, shortness of breath and wheezing. Cardiovascular: Negative for chest pain/discomfort. All other systems are reviewed and are negative except as noted. PHYSICAL EXAM Vital signs BP 127/88 Pulse 68 Ht 182.9 cm (6') Wt 94.4 kg (208 lb 3.2 oz) SpO2 99% BMI 28.24 kg/m Physical Exam Vitals and nursing note reviewed. Constitutional: Appearance: Normal appearance. Cardiovascular: Heart sounds: Normal heart sounds. Pulmonary: Breath sounds: Normal breath sounds. Musculoskeletal: Cervical back: Neck supple. Skin: General: Skin is warm and dry. Neurological: Mental Status: He is alert and oriented to person, place, and time. Psychiatric: Mood and Affect: Mood normal. Behavior: Behavior normal. PERTINENT LAB RESULTS Lab Results Component Value Date CO2 02/03/2021 IMAGING no studies completed No results found. No results found. IMPRESSION Suspected obstructive sleep apnea syndrome Fatigue snoring Overweight Body mass index is 28.24 kg/m . Bipolar GERD PLAN Discussed diagnosis, its evaluation, treatment and usual course. All questions answered. Educational material distributed. Consideration of CO2 monitoring (if BMI > 35 and serum CO2 > 27: BMI Readings from Last 1 Encounters: 04/27/25 28.24 kg/m Lab Results Component Value Date CO2 02/03/2021 ] Orders Placed This Encounter Procedures PSG Diagnostic Standing Status: Future Expiration Date: 04/27/2026 Follow Up: [facility] Sleep Medicine to read and follow patient. Reason for Study?: G47.33 Obstructive sleep apnea Orders Placed or Reconciled This Encounter Medications dicyclomine (BENTYL) 20 mg tablet Sig: Take 1 tablet (20 mg total) by mouth 3 (three) times a day as needed. FLUoxetine (PROzac) 60 MG tablet Sig: Take 1 tablet (60 mg total) by mouth before bedtime. OLANZapine (ZyPREXA) 2.5 mg tablet Sig: Take 1 tablet (2.5 mg total) by mouth nightly. omeprazole (PriLOSEC) 20 mg capsule Sig: Take 1 capsule (20 mg total) by mouth daily as needed. A PSG is ordered. Diet and exercise were discussed in detail Smoking cessation was discussed in detail. 3 minutes. Any age-appropriate routine screenings to be completed per PCP Follow up in 6 Months time. If his condition should change prior to this he is encouraged to give our office a call. EDUCATION: Pathophysiology of TWIN was explained. Health risks associated with untreated TWIN were discussed (cardiopulmonary, cerebrovascular, and anesthesia/sedative-related). Risks associated with excessive daytime sleepiness, particularly while driving/operating machinery were discussed. The patient was instructed to avoid such activities if feeling sleepy, and to stop the activity if sleepiness occurs (tap puller at the next safe opportunity if driving). TWIN treatment options were discussed. CPAP is the most predictably effective treatment. If indicated and prescribed, CPAP must be used every night, all night for full benefits. It may take several weeks until fully accustomed to using the treatment, and before benefits (improved sleep quality and daytime alertness) are noticeable. Potential problems with CPAP were reviewed. Interim measures to reduce obstructive sleep apnea severity were recommended (avoidance of the supine position and elevation of the upper body and during sleep). CC: [facility] Anival Aviles [facility] Office: [phone] 11:46 AM on 04/27/2025 This note is dictated with the use of M*Modal.Please note that this dictation was completed with computer voice recognition software. Quite often unanticipated grammatical, syntax, homophones, and other interpretive errors are inadvertently transcribed by the computer software. Please disregard these errors. Please excuse any errors that have escaped final proofreading. LANDRY Diaz 04/27/25 1146 documented in this encounter [email or web address] [facility] 04-27-2025 Instructions LANDRY Diaz - 04/27/2025 11:00 AM EDT If you re looking for general health and wellness resources, please visit [email or web address]. documented in this encounter [facility] [email or web address] [facility] 07-24-2022 Note OPERATIVE NOTE OPERATION DATE: 07/24/2022 [...] in good condition. CC: Family physician [facility] 07-02-2022 Note Chief Complaint consultation for ABD pain HPI Staff 41 year old male presents on consultation from [facility] ED for abdominal pain. Presented to [...] Allergies No K (more content not included)... [facility] Comment on above: Result Comment: Elec tronically Signed By: SAMIR MOCK, Anupam Benson.br\Date and Time Signed: 07/02/22 21:30 EDT 04-03-2022 Note [id number]:127 [facility] Evaluation + Plan note No data available for this section General Surgery [place] Evaluation note Diagnosis Encounter for screening for other viral diseases documented in this encounter [facility]* Diagnosis Encounter for screening for cardiovascular disorders documented in this encounter [facility]* Diagnosis Encounter for general adult medical examination without abnormal findings documented in this encounter [facility]* Diagnosis Encounter for screening for human immunodeficiency virus (HIV) documented in this encounter [facility]* Diagnosis Encounter for screening for other suspected endocrine disorder documented in this encounter [facility]* Diagnosis Fatigue, unspecified type- Primary Sleep apnea, unspecified type Snoring Other dyspnea and respiratory abnormality BMI 28.0-28.9,adult Overweight with body mass index (BMI) of 28 to 28.9 in adult Marijuana use documented in this encounter [facility] Discharge instructions No data available for this section General Surgery [place] InstructionsNot on filedocumented in this encounter [email or web address] SystemInstructionsNot on filedocumented in this encounter [email or web address] SystemInstructionsNot on filedocumented in this encounter [facility] [email or web address] SystemProgress note No data available for this section General Surgery [place] Summary Purpose Family History No Family History Records FoundNo Family History Records FoundNo Family History Records Found Advance Directives No Advanced Directives Records FoundNo Advanced Directives Records FoundNo Advanced Directives Records Found Additional Source Comments Care Team (unrecognized sect ion and content) Risk Control Manager Relationship Specialty Start Date End Date No [place], [place] [address] PCP - General [facility] Medicine 02/03/21 Risk Control Manager Relationship Specialty Start Date [facility] [address] [place] PCP - [facility] Medicine 04/27/25 Risk Control Manager Relationship Specialty Start Date End [facility] [address] [place] PCP - [facility] Medicine 04/27/25 Risk Control Manager Relationship Specialty Start Date End Date Services, [facility] [address] [place] PCP - [facility] Medicine 04/27/25 (unrecognized sect ion and content) No Status Records FoundNo Status Records FoundNo Status Records Found INFORMATION SOURCE (unrecogn ized section and content) DATE CREATED AUTHOR 08/07/2022 [facility] DATE CREATED AUTHOR AUTHOR'S ORGANIZ ATION 02/08/2023 [facility] [place] [facility] DATE CREATED AUTHOR AUTHOR'S ORGANIZ ATION 04/30/2025 [facility] Reason for Visit (unrecogniz ed section and content) Reason Comments New Patient No previous sleep st udyNo PAP therapyNo Oral Appliances Specialty Diagnoses / Procedures Referred By Contac t Referred To Contact Pulmonary Medicine Diagnoses Sleep apnea, unspecified type Nannette Perez, VICE PRESIDENT OF ENGINEERING-EMAIL MARKETING EXECUTIVE [address] [place] [address] Phone: tel: fax: [facility] [address] [place] [address] Phone: tel: fax: Referral ID Status Reason Start Date Expiration Date Visits Requested Visits Authorized [id number] Pending Review Specialty Services Required 01/27/2025 01/27/2026 1 1 Reason Onset Date Comments Sleep Lab 04/28/2025 PSG Order FOR RECORDS PERTAINING TO PATIENTS WHO ARE [...] BE BASED ON THE PRIMARY CLINICAL RECORDS. [facility] [employer] [facility]. provides no warranty or guarantee of the accuracy or completeness of information in this document.
--- NOTE | 2025-05-01 13:15 | ED.GENADUL1 ---
HPI HPI - General Adult General Chief complaint: Nausea/Vomiting/Diarrhea Stated complaint: WEAKNESS, VOMITING Time Seen by Provider: 05/01/25 13:04 Source: patient Mode of arrival: Wheelchair History of Present Illness HPI narrative: 44-year-old male presents to the emergency department for nausea and vomiting. He has had this for 4 days. 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 No hematemesis or fever. No history of abdominal surgeries. Related Data Home Medications ?Medication ?Instructions ?Recorded ?Confirmed olanzapine 2.5 mg tablet 2.5 mg PO BEDTIME 07/16/23 05/01/25 fluoxetine 60 mg tablet 60 mg PO QPM 11/04/23 05/01/25 omeprazole 20 mg capsule,delayed 20 mg PO DAILY 07/16/24 05/01/25 release Allergies Allergy/AdvReac Type Severity Reaction Status Date / Time No Known Drug Allergies Allergy Verified 05/22/24 19:38 Opioid HPI Opioid Management Most Recent Opioid Data: Last Pain Scale 1 05/23/24, 13:00 Last ORT Total Score 18 07/16/24, 22:39 Last ORT Risk Category High Risk 07/16/24, 22:39 Ur Phencyclidine Scrn, (NEGATIVE) Negative 05/22/24, 19:44 Review of Systems ROS Narrative A ten point review of systems is negative except as noted above. [facility] Medical History (Updated 05/01/25 @ 15:34 by Jose Olmstead MD) Hypovolemia dehydration ?E86.1 - Hypovolemia (ICD-10) Cannabis hyperemesis syndrome concurrent with and due to cannabis abuse ?F12.188 - Cannabis abuse with other cannabis-induced disorder (ICD-10) Benign essential HTN ?I10 - Essential (primary) hypertension (ICD-10) Bipolar 1 disorder ?F31.9 - Bipolar disorder, unspecified (ICD-10) Emphysema of lung ?J43.9 - Emphysema, unspecified (ICD-10) Marijuana abuse, continuous ?F12.10 - Cannabis abuse, uncomplicated (ICD-10) Hyperbilirubinemia ?E80.6 - Other disorders of bilirubin metabolism (ICD-10) Elevated liver enzymes ?R74.8 - Abnormal levels of other serum enzymes (ICD-10) Abdominal pain ?R10.9 - Unspecified abdominal pain (ICD-10) Abdominal pain ?R10.9 - Unspecified abdominal pain (ICD-10) Pneumonia ?J18.9 - Pneumonia, unspecified organism (ICD-10) Anxiety ?F41.9 - Anxiety disorder, unspecified (ICD-10) Family History (Updated 02/06/24 @ 04:58 by Kelsie Fitch RN) Father Family history of CHF (congestive heart failure) Family history of hypertension Family history of myocardial infarction Family history of stroke Grandfather Family history of cancer Family history of myocardial infarction Family history of stroke Uncle Family history of cancer Grandmother Family history of diabetes mellitus Social History Within the past year, how often did you have a drink containing alcohol: never Within the past year, how often did you have six or more drinks on one occasion: never Score interpretation: A score less than 4 is consistent with normal alcohol consumption. Smoking status: Current every day smoker Do you use any of these nicotine containing products: vaping products Non-prescribed substance use: cannabis (any form) Highest level of school completed/degree received: high school graduate Are you now , , , , never or living with a partner: In a typical week, how many times do you talk on the telephone with family, friends, or neighbors: 3 or more times per week How often do you get together with friends or relatives: 3 or more times per week How often do you attend roman catholic or yarsanism services: never Little interest or pleasure in doing things: not at all Feeling down, depressed, or hopeless: not at all Feel stressed/tense/nervous/anxious/difficulty sleeping: to some extent Do you think of yourself as: straight/heterosexual Gender Identity: male Exam Narrative Exam Narrative: Nurses note and vital signs reviewed and patient is not hypoxic. General: The patient appears uncomfortable Skin: Warm, dry, no pallor noted. There is no rash noted. Head: Normocephalic, atraumatic Eye: Normal conjunctiva, no drainage Ears, Nose, Mouth, and Throat: oral mucosa is moist. Nares patent. Cardiovascular: Regular Rate and Rhythm Respiratory: Patient is in no distress, no accessory muscle use, lungs are clear to auscultation, no wheezing, rales or rhonchi Back: non-tender GI: Normal bowel sounds, no tenderness to palpation, no masses appreciated. No rebound, guarding, or rigidity noted. Musculoskeletal: The patient has no evidence of calf tenderness, no pitting edema, symmetrical pulses noted bilaterally Neurological: A&O, normal speech Psychiatric: Cooperative Constitutional Vital Signs, click to edit/add: Last Vital Signs Temp 98.0 F 05/01/25 13:06 Pulse 108 H 05/01/25 13:06 Resp 20 05/01/25 13:06 BP 148/92 H 05/01/25 13:47 Pulse Ox 99 05/01/25 13:06 O2 Del Method Room Air 05/01/25 13:06 Course Vital Signs Vital signs: Vital Signs Temperature 98.0 F 05/01/25 13:06 Pulse Rate 108 H 05/01/25 13:06 Respiratory Rate 20 05/01/25 13:06 Pulse Oximetry 99 05/01/25 13:06 Oxygen Delivery Method Room Air 05/01/25 13:06 Temperature 98.0 F 05/01/25 13:06 Pulse Rate 108 H 05/01/25 13:06 Respiratory Rate 20 05/01/25 13:06 Blood Pressure 148/92 H 05/01/25 13:47 Pulse Oximetry 99 05/01/25 13:06 Oxygen Delivery Method Room Air 05/01/25 13:06 Medical Decision Making MDM Narrative Medical decision making narrative: The patient was found to have acute kidney injury. This is secondary to cannabinoid hyperemesis syndrome. He was cautioned about the use of cannabinoids today and has been in the past as well. He was given IV fluids. CT of the abdomen shows no acute findings. Treatment diagnosis and disposition were discussed with the patient. Differential Diagnosis Differential Diagnosis: Cyclic vomiting syndrome, cannabinoid abuse, acute kidney injury Medical Records Medical records reviewed: Yes I reviewed the patient's medical records Lab Data Lab results reviewed: Yes I reviewed the patient's lab results Labs: Lab Results 05/01/25 Range/Units 13:42 WBC 30.3 H* (4.0-11.0) 10^3/uL RBC 6.30 H (4.70-6.10) 10^6/uL Hgb 19.0 H (14.0-18.0) g/dL Hct 56.0 H (42.0-54.0) % MCV 88.9 (80.0-94.0) fL MCH 30.2 (25.9-34.0) pg MCHC 33.9 (29.9-35.2) g/dL RDW 13.3 (11.0-15.0) % Plt Count 582 H (150-450) 10^3/uL MPV 10.6 (9.5-13.5) fL Seg Neuts % (Manual) 85.0 H (43.0-75.0) Band Neutrophils % 1.0 (0-5) % Lymphocytes % (Manual) 8.0 L (20.5-60.0) % Monocytes % (Manual) 6.0 (1.7-12.0) % Eosinophils % (Manual) 0.0 L (0.9-7.0) % Basophils % (Manual) 0.0 L (0.2-2.0) % Neutrophils # (Manual) 25.75 H (1.4-6.5) 10^3/uL Band Neutrophils # 0.3 (0.0-0.3) 10^3/uL Lymphocytes # (Manual) 2.42 (1.20-3.80) 10^3/uL Monocytes # (Manual) 1.81 H (0.30-0.80) 10^3/uL Eosinophils # (Manual) 0.00 (0.00-0.70) 10^3/uL Basophils # (Manual) 0.00 (0.00-0.10) 10^3/uL Sodium 151 H (136-145) mmol/L Potassium 4.6 (3.5-5.1) mmol/L Chloride 108 H (98-107) mmol/L Carbon Dioxide 17.1 L (21.0-32.0) mmol/L Anion Gap 30.5 BUN 106.0 H* (7.0-18.0) mg/dL Creatinine 3.69 H (0.70-1.30) mg/dL Est GFR ( Amer) 22 L (>=60 mL/min/1.73m^2) Est GFR (Non-Af Amer) 18 L (>=60 mL/min/1.73m^2) BUN/Creatinine Ratio 28.7 Glucose 124 H (74-106) mg/dL Calcium 10.5 H (8.5-10.1) mg/dL Imaging Data CT scan - abdomen: Radiologist's impression: ITS Impressions Abdomen/Pelvis CT 05/01/25 14:14 IMPRESSION: No acute findings. No small bowel obstruction. No focal inflammatory changes. Mild gallbladder distention. Impression dictated by: Ed Hugo M.D. 05/01/2025 3:24 PM Dictation Location: [employer] Electronically authenticated by: [id number] Y Date: 05/01/2025 15:24 Discharge Plan Discharge Chief Complaint: Nausea/Vomiting/Diarrhea Clinical Impression: Acute kidney injury, Cannabinoid hyperemesis syndrome Patient Disposition: Admitted As Inpatient Time of Disposition Decision: 15:34 Condition: Fair
[2025-05-01] MEDS: 0.9 % SODIUM CHLORIDE 1,000 ML 1000 ML IV ×2 (13:45→16:09)
[2025-05-01 13:51] LABS: Hematocrit 56.0 % (42.0-54.0); Hemoglobin 19.0 g/dL (14.0-18.0); Mean Corpuscular HGB Conc 33.9 g/dL (29.9-35.2); Mean Corpuscular Hemoglobin 30.2 pg (25.9-34.0); Mean Corpuscular Volume 88.9 fL (80.0-94.0); Platelet Count 582 10^3/uL (150-450); Red Blood Count 6.30 10^6/uL (4.70-6.10)
[2025-05-01 13:56] LABS: White Blood Count 30.3 10^3/uL (4.0-11.0)
[2025-05-01 14:03] LABS: Band Neutrophils Absolute 0.3 10^3/uL (0.0-0.3); Basophils Abs Manual 0.00 10^3/uL (0.00-0.10); Basophils Percent Manual 0.0 % (0.2-2.0); Eosinophils Absolute Manual 0.00 10^3/uL (0.00-0.70); Eosinophils Percent Manual 0.0 % (0.9-7.0); Lymphocytes Absolute Manual 2.42 10^3/uL (1.20-3.80); Lymphocytes Percent Manual 8.0 % (20.5-60.0); Monocytes Absolute Manual 1.81 10^3/uL (0.30-0.80); Monocytes Percent Manual 6.0 % (1.7-12.0); Segmented Neut Absolute Manual 25.75 10^3/uL (1.4-6.5); Segmented Neutrophils % Manual 85.0 (43.0-75.0)
[2025-05-01 14:05] LABS: Anion Gap 30.5; Calcium 10.5 mg/dL (8.5-10.1); Carbon Dioxide 17.1 mmol/L (21.0-32.0); Chloride 108 mmol/L (98-107); Estimated GFR (African America 22 (>=60 mL/min/1.73m^2); Estimated GFR (Non-African Ame 18 (>=60 mL/min/1.73m^2); Glucose 124 mg/dL (74-106); Potassium 4.6 mmol/L (3.5-5.1); Sodium 151 mmol/L (136-145)
[2025-05-01 14:10] LABS: Blood Urea Nitrogen 106.0 mg/dL (7.0-18.0)
--- NOTE | 2025-05-01 14:14 | CT_ITS ---
The [address] [address] Patient Name: GERALDINE RICCI MRN: [id number] date: 1980 Sex: M Assigned Patient Location: ER Current Patient Location: ER Accession/Order Number: [id number] Exam Date: 05/01/2025 15:19 Report Date: 05/01/2025 15:24 At the request of: MARGIE VILLELA MD Procedure: CT abdomen pelvis wo con CT Abdomen and Pelvis withoutcontrast TECHNIQUE: Axial imaging with 2-D reconstruction. . The CT exam was performed using one or more the following dose reduction techniques: Automated exposure control, adjustment of the MA and/or Kv according to patient size, or use of the iterative reconstruction technique. COMPARISON: 05/22/2024 History: Nausea and vomiting for 4 days LIMITATIONS: None LOWER THORAX Unremarkable LIVER: Hepatic steatosis GALLBLADDER: Mild gallbladder distention. No calcified stones. No adjacent inflammation. BILE DUCTS: No dilatation SPLEEN: Unremarkable PANCREAS: Unremarkable ADRENAL GLANDS: Unremarkable KIDNEYS:Small renal cysts. No nephrolithiasis or obstructive uropathy. AORTA: No abdominal aortic aneurysm identified. RETROPERITONEUM: No significant retroperitoneal abnormalities identified. MESENTERY:Unremarkable STOMACH:Unremarkable SMALL BOWEL: The small bowel loops are nondistended. APPENDIX: The appendix is normal. COLON: Suspected Contrast present in nondistended colon. URINARY BLADDER: Urinary bladder is unremarkable. REPRODUCTIVE SYSTEM: Reproductive structures are unremarkable. PNEUMOPERITONEUM: None PERITONEAL FLUID:None BONY STRUCTURES: Unremarkable ABDOMINAL WALL: Fat-containing umbilical hernia CT/CT abdomen pelvis wo con IMPRESSION: No acute findings. No small bowel obstruction. No focal inflammatory changes. Mild gallbladder distention. Impression dictated by: Ed Hugo M.D. 05/01/2025 3:24 PM Dictation Location: [employer] Electronically authenticated by: [id number] Y Date: 05/01/2025 15:24
--- NOTE | 2025-05-01 15:45 | ED.GENADUL1 ---
HPI HPI - General Adult General Chief complaint: Nausea/Vomiting/Diarrhea Stated complaint: WEAKNESS, VOMITING Time Seen by Provider: 05/01/25 13:04 Source: patient Mode of arrival: Wheelchair Related Data Home Medications ?Medication ?Instructions ?Recorded ?Confirmed olanzapine 2.5 mg tablet 2.5 mg PO BEDTIME 07/16/23 05/01/25 fluoxetine 60 mg tablet 60 mg PO QPM 11/04/23 05/01/25 omeprazole 20 mg capsule,delayed 20 mg PO DAILY 07/16/24 05/01/25 release Allergies Allergy/AdvReac Type Severity Reaction Status Date / Time No Known Drug Allergies Allergy Verified 05/22/24 19:38 Opioid HPI Opioid Management Most Recent Opioid Data: Last Pain Scale 1 05/23/24, 13:00 Last ORT Total Score 18 07/16/24, 22:39 Last ORT Risk Category High Risk 07/16/24, 22:39 Ur Phencyclidine Scrn, (NEGATIVE) Negative 05/22/24, 19:44 PFSH PFSH Medical History (Updated 05/01/25 @ 15:34 by Jose Olmstead MD) Hypovolemia dehydration ?E86.1 - Hypovolemia (ICD-10) Cannabis hyperemesis syndrome concurrent with and due to cannabis abuse ?F12.188 - Cannabis abuse with other cannabis-induced disorder (ICD-10) Benign essential HTN ?I10 - Essential (primary) hypertension (ICD-10) Bipolar 1 disorder ?F31.9 - Bipolar disorder, unspecified (ICD-10) Emphysema of lung ?J43.9 - Emphysema, unspecified (ICD-10) Marijuana abuse, continuous ?F12.10 - Cannabis abuse, uncomplicated (ICD-10) Hyperbilirubinemia ?E80.6 - Other disorders of bilirubin metabolism (ICD-10) Elevated liver enzymes ?R74.8 - Abnormal levels of other serum enzymes (ICD-10) Abdominal pain ?R10.9 - Unspecified abdominal pain (ICD-10) Abdominal pain ?R10.9 - Unspecified abdominal pain (ICD-10) Pneumonia ?J18.9 - Pneumonia, unspecified organism (ICD-10) Anxiety ?F41.9 - Anxiety disorder, unspecified (ICD-10) Family History (Updated 02/06/24 @ 04:58 by Kelsie Fitch RN) Father Family history of CHF (congestive heart failure) Family history of hypertension Family history of myocardial infarction Family history of stroke Grandfather Family history of cancer Family history of myocardial infarction Family history of stroke Uncle Family history of cancer Grandmother Family history of diabetes mellitus Social History Within the past year, how often did you have a drink containing alcohol: never Within the past year, how often did you have six or more drinks on one occasion: never Score interpretation: A score less than 4 is consistent with normal alcohol consumption. Smoking status: Current every day smoker Do you use any of these nicotine containing products: vaping products Non-prescribed substance use: cannabis (any form) Highest level of school completed/degree received: high school graduate Are you now , , , , never or living with a partner: In a typical week, how many times do you talk on the telephone with family, friends, or neighbors: 3 or more times per week How often do you get together with friends or relatives: 3 or more times per week How often do you attend hinduism or mormonism services: never Little interest or pleasure in doing things: not at all Feeling down, depressed, or hopeless: not at all Feel stressed/tense/nervous/anxious/difficulty sleeping: to some extent Do you think of yourself as: straight/heterosexual Gender Identity: male Exam Constitutional Vital Signs, click to edit/add: Last Vital Signs Temp 98.0 F 05/01/25 13:06 Pulse 108 H 05/01/25 13:06 Resp 20 05/01/25 13:06 BP 148/92 H 05/01/25 13:47 Pulse Ox 99 05/01/25 13:06 O2 Del Method Room Air 05/01/25 13:06 Course Vital Signs Vital signs: Vital Signs Temperature 98.0 F 05/01/25 13:06 Pulse Rate 108 H 05/01/25 13:06 Respiratory Rate 20 05/01/25 13:06 Pulse Oximetry 99 05/01/25 13:06 Oxygen Delivery Method Room Air 05/01/25 13:06 Temperature 98.0 F 05/01/25 13:06 Pulse Rate 108 H 05/01/25 13:06 Respiratory Rate 20 05/01/25 13:06 Blood Pressure 148/92 H 05/01/25 13:47 Pulse Oximetry 99 05/01/25 13:06 Oxygen Delivery Method Room Air 05/01/25 13:06 Medical Decision Making MDM Narrative Medical decision making narrative: Acute kidney injury is identified. He was given IV fluids and CT of the abdomen is negative. He has not yet given us a urine specimen. Findings are discussed with the patient and he was advised against the future use of marijuana. He was advised the risks of kidney injury including dialysis. Treatment diagnosis and disposition were discussed with the patient. Differential Diagnosis Differential Diagnosis: hyperemesis, dehydration, acute kidney injury Medical Records Medical records reviewed: Yes I reviewed the patient's medical records Lab Data Lab results reviewed: Yes I reviewed the patient's lab results Labs: Lab Results 05/01/25 Range/Units 13:42 WBC 30.3 H* (4.0-11.0) 10^3/uL RBC 6.30 H (4.70-6.10) 10^6/uL Hgb 19.0 H (14.0-18.0) g/dL Hct 56.0 H (42.0-54.0) % MCV 88.9 (80.0-94.0) fL MCH 30.2 (25.9-34.0) pg MCHC 33.9 (29.9-35.2) g/dL RDW 13.3 (11.0-15.0) % Plt Count 582 H (150-450) 10^3/uL MPV 10.6 (9.5-13.5) fL Seg Neuts % (Manual) 85.0 H (43.0-75.0) Band Neutrophils % 1.0 (0-5) % Lymphocytes % (Manual) 8.0 L (20.5-60.0) % Monocytes % (Manual) 6.0 (1.7-12.0) % Eosinophils % (Manual) 0.0 L (0.9-7.0) % Basophils % (Manual) 0.0 L (0.2-2.0) % Neutrophils # (Manual) 25.75 H (1.4-6.5) 10^3/uL Band Neutrophils # 0.3 (0.0-0.3) 10^3/uL Lymphocytes # (Manual) 2.42 (1.20-3.80) 10^3/uL Monocytes # (Manual) 1.81 H (0.30-0.80) 10^3/uL Eosinophils # (Manual) 0.00 (0.00-0.70) 10^3/uL Basophils # (Manual) 0.00 (0.00-0.10) 10^3/uL Sodium 151 H (136-145) mmol/L Potassium 4.6 (3.5-5.1) mmol/L Chloride 108 H (98-107) mmol/L Carbon Dioxide 17.1 L (21.0-32.0) mmol/L Anion Gap 30.5 BUN 106.0 H* (7.0-18.0) mg/dL Creatinine 3.69 H (0.70-1.30) mg/dL Est GFR ( Amer) 22 L (>=60 mL/min/1.73m^2) Est GFR (Non-Af Amer) 18 L (>=60 mL/min/1.73m^2) BUN/Creatinine Ratio 28.7 Glucose 124 H (74-106) mg/dL Calcium 10.5 H (8.5-10.1) mg/dL Imaging Data CT scan - abdomen: Radiologist's impression: ITS Impressions Abdomen/Pelvis CT 05/01/25 14:14 IMPRESSION: No acute findings. No small bowel obstruction. No focal inflammatory changes. Mild gallbladder distention. Impression dictated by: Ed Hugo M.D. 05/01/2025 3:24 PM Dictation [facility] Electronically authenticated by: [id number] Y Date: 05/01/2025 15:24 Discharge Plan Discharge Chief Complaint: Nausea/Vomiting/Diarrhea Clinical Impression: Acute kidney injury, Cannabinoid hyperemesis syndrome Patient Disposition: Admitted As Inpatient Time of Disposition Decision: 15:34 Condition: Fair
--- NOTE | 2025-05-01 15:54 | PM.IMHP1 ---
Internal Medicine - H&P: HPI History of Present Illness Chief complaint: WEAKNESS, VOMITING MACKENZIE CANNABINOID HYPEREMESIS SY Narrative: Jitendra Servin is a 44 y/o M, h/o marijuana use with cannabinoid hyperemesis syndrome, bipolar disorder, prior admissions for acute renal failure, presented to [facility] on 05/01/25 with persistent nausea and vomiting, found to be in acute renal failure prompting medical admission. On assessment at bedside, patient resting out of bed to chair, alert, oriented and conversant. States has had persistent nausea, vomiting, abdominal pain since 04/27, non-bloody, non-bilious with poor PO intake limited to 64 oz bottle of apple juice. Small amounts of clear yellow urine, denies any blood or dysuria. No diarrhea. Last marijuana use was last week. Denies any fevers, chills, cough or shortness of breath, just persistent GI distress consistent with prior admissions for hyperemesis syndrome. In the ER, CT abdomen showed no evidence of obstructive uropathy, no acute findings. Review of Systems ROS Status of ROS 10 or more systems reviewed and unremarkable except as noted in history and below [facility] Medical History (Updated 05/01/25 @ 15:34 by Jose Olmstead MD) Hypovolemia dehydration ?E86.1 - Hypovolemia (ICD-10) Cannabis hyperemesis syndrome concurrent with and due to cannabis abuse ?F12.188 - Cannabis abuse with other cannabis-induced disorder (ICD-10) Benign essential HTN ?I10 - Essential (primary) hypertension (ICD-10) Bipolar 1 disorder ?F31.9 - Bipolar disorder, unspecified (ICD-10) Emphysema of lung ?J43.9 - Emphysema, unspecified (ICD-10) Marijuana abuse, continuous ?F12.10 - Cannabis abuse, uncomplicated (ICD-10) Hyperbilirubinemia ?E80.6 - Other disorders of bilirubin metabolism (ICD-10) Elevated liver enzymes ?R74.8 - Abnormal levels of other serum enzymes (ICD-10) Abdominal pain ?R10.9 - Unspecified abdominal pain (ICD-10) Abdominal pain ?R10.9 - Unspecified abdominal pain (ICD-10) Pneumonia ?J18.9 - Pneumonia, unspecified organism (ICD-10) Anxiety ?F41.9 - Anxiety disorder, unspecified (ICD-10) Family History (Updated 02/06/24 @ 04:58 by Kelsie Fitch RN) Father Family history of CHF (congestive heart failure) Family history of hypertension Family history of myocardial infarction Family history of stroke Grandfather Family history of cancer Family history of myocardial infarction Family history of stroke Uncle Family history of cancer Grandmother Family history of diabetes mellitus Social History Within the past year, how often did you have a drink containing alcohol: never Within the past year, how often did you have six or more drinks on one occasion: never Score interpretation: A score less than 4 is consistent with normal alcohol consumption. Smoking status: Current every day smoker Do you use any of these nicotine containing products: vaping products Non-prescribed substance use: cannabis (any form) Highest level of school completed/degree received: high school graduate Are you now , , , , never or living with a partner: In a typical week, how many times do you talk on the telephone with family, friends, or neighbors: 3 or more times per week How often do you get together with friends or relatives: 3 or more times per week How often do you attend evangelical or worship services: never Little interest or pleasure in doing things: not at all Feeling down, depressed, or hopeless: not at all Feel stressed/tense/nervous/anxious/difficulty sleeping: to some extent Do you think of yourself as: straight/heterosexual Gender Identity: male Meds Home Medications and Allergies Home Medications ?Medication ?Instructions ?Recorded ?Confirmed ?Type olanzapine 2.5 mg tablet 2.5 mg PO BEDTIME 07/16/23 05/01/25 History fluoxetine 60 mg tablet 60 mg PO QPM 11/04/23 05/01/25 History omeprazole 20 mg capsule,delayed 20 mg PO DAILY 07/16/24 05/01/25 History release Allergies Allergy/AdvReac Type Severity Reaction Status Date / Time No Known Drug Allergies Allergy Verified 05/22/24 19:38 Exam Narrative Exam Narrative: Gen.: Awake, alert, tired appearing but conversant and oriented Head: Normocephalic, atraumatic ENT: Moist mucous membranes Respiratory: No respiratory distress, lungs clear bilaterally Cardio: Regular rate and rhythm Gastrointestinal: Abdomen is soft, nondistended and slight suprapubic tenderness Extremities: Moves extremities equally Psych: Normal mood and affect Neuro: No focal neuro deficit Skin: Warm, dry, intact Constitutional Vital Signs, click to edit/add: Last Vital Signs Temp 98.0 F 05/01/25 13:06 Pulse 108 H 05/01/25 13:06 Resp 20 05/01/25 13:06 BP 148/92 H 05/01/25 13:47 Pulse Ox 99 05/01/25 13:06 O2 Del Method Room Air 05/01/25 13:06 Internal Medicine - H&P: Reslt Labs Labs: Short CBC 05/01/25 Range/Units 13:42 WBC 30.3 H* (4.0-11.0) 10^3/uL Hgb 19.0 H (14.0-18.0) g/dL Hct 56.0 H (42.0-54.0) % Plt Count 582 H (150-450) 10^3/uL BMP 05/01/25 13:42 Sodium 151 H Potassium 4.6 Chloride 108 H Carbon Dioxide 17.1 L BUN 106.0 H* Creatinine 3.69 H Glucose 124 H Calcium 10.5 H Assessment and Plan Assessment and Plan (1) Cannabinoid hyperemesis syndrome: (2) Acute kidney injury: (3) Sepsis: Qualifiers: Sepsis type: Pneumococcus Sepsis acute organ dysfunction status: with acute organ dysfunction Severe sepsis acute organ dysfunction type: acute renal failure Acute renal failure type: unspecified Severe sepsis shock status: without septic shock Qualified Code(s): A40.3 - Sepsis due to Streptococcus pneumoniae; R65.20 - Severe sepsis without septic shock; N17.9 - Acute kidney failure, unspecified (4) Anxiety: Plan Jitendra Servin is a 44 y/o M, h/o marijuana use with cannabinoid hyperemesis syndrome, bipolar disorder, prior admissions for acute renal failure, presented to [facility] on 05/01/25 with persistent nausea and vomiting, found to be in acute renal failure prompting medical admission. 1. Sepsis and acute kidney injury in the setting of GI distress, h/o cannabinoid hyperemesis syndrome - WBC 33, tachycardic to 108, cannot rule out underlying UTI given h/o enterococcus in urine, 2 L NS ordered in ER - refusing william catheter placement, bladder scan q6h - check urine electrolytes with Donna and UCr for FeNa, however in the setting of already receiving fluids - UTox and U/a with cx - Plan for empiric levofloxacin given h/o enterococcus and renal dysfunction, check QTc prior to administering - complete 2 L NS then start normal saline at 125 cc/hr, ok for regular diet - no clinical signs of uremia at present, anticipate renal recovery however low threshold for transfer for dialysis if remains oliguric 2. h/o marijuana use with cannabinoid hyperemesis syndrome, bipolar disorder - continue home meds, fluoxetine and olanzapine Diet: regular Lines/tubes: PIV VTE prophylaxis: sqh Code status: full Dispo: inpatient
--- OUTSIDE RECORDS SUMMARY | 2025-05-01 16:27 | XMS_ITS | CCD ---
Author Organization [facility] Care Team Providers Care Sales Operations Lead Name Role Phone RANJANA TRAYLOR Primary Care [...] Primary Care Provider Unavailabl e Services, Former[facility], Later [facility] Primary Care Provider YASMIN WOOD Attending Unavailable NANNETTE PEREZ Referring Unavailable SERVICES, [facility] Primary Care Unava ilable Allergies Allergy Classification Reported Allergen(s) Allergy Type Date of Onset Reaction(s) Facility (1 source) No Known Medication Allergies; Translations: [No Known Medication Allergies] Propensity to adverse reactions (disorder) [facility] Repository Medications Current Medications Medication Drug Class(es) [...] 01-30-2023 HCV AB Non-Reactive Normal Non Reactive [facility] Comment on above: Performed By: #### L ACT #### [facility] [address] [address] [address] Etienne Fitch Interpretation: Comment Normal [facility] Comment on above: Result Comment: Not infected with HCV unless early or acute infection is suspected (which may be delayed in an immunocompromised individual), or other evidence exists to indicate HCV infection. Performed By: #### L ACT #### [facility] [address], [place] [address] Dr. Etienne Fitch HIV 1 AND 2 WITH REFLEXon HIV Screen 4th Generation wRfx Non-Reactive Normal Non Reactive [facility] Comment on above: Result Comment: HIV Negative HIV-1/HIV-2 antibodies and HIV-1 p24 antigen were NOT detected. There is no laboratory evidence of HIV infection. Performed By: #### H IV12 #### [facility] [address] [address] [address] Etienne Fitch LIPID PROFILEon 01-29-2023 CHOL-HDL RATIO NORM SEE BELOW Normal [facility] Comment on above: Result Comment: 3.3 - 4.4 LOW RISK 4.4 - 7.1 AVERAGE RISK 7.1 - 11.0 MODERATE RISK >11.0 HIGH RISK Performed By: #### U MICRO, ERUR #### [facility] [address] [address] [address] Etienne Fitch Cholesterol [Mass/Vol] 196 mg/dL Normal <=200 [facility] Comment on above: Performed By: #### U MICRO, ERUR #### [facility] [address] [address] [address] Etienne Fitch Cholesterol in HDL [Mass/Vol] 78 mg/dL Critically high 40-60 [facility] Comment on above: Performed By: #### U MICRO, ERUR #### [facility] [address] [address] [address] Etienne Fitch Cholesterol in LDL [Mass/Vol] 106.6 mg/dL Normal [facility] Comment on above: Performed By: #### U MICRO, ERUR #### [facility] [address] [place] [address] Dr. Etienne Fitch Cholesterol.total /Cholesterol in HDL [Mass ratio] 2.5 {ratio} Normal [facility] Comment on above: Performed By: #### U MICRO, ERUR #### [facility] [address] [place] [address] Dr. Etienne Fitch HDL NORMAL > or = 60 mg/dl - LO W CARDIOVASCULAR RISK <40 mg/dl - HIGH CARDIOVASCULAR RISK Normal [facility] Comment on above: Performed By: #### U MICRO, ERUR #### [facility] [address] [address] [address] Etienne Fitch LDL CALC NORMAL SEE BELOW Normal [facility] Comment on above: Result Comment: <100 mg/dl OPTIMAL 100 - 129 mg/dl NEAR OR ABOVE OPTIMAL 130 - 159 mg/dl BORDERLINE HIGH 160 - 189 mg/dl HIGH >190 mg/dl VERY HIGH Performed By: #### U MICRO, ERUR #### [facility] [address] [place] [address] Dr. Etienne Fitch Triglyceride [Mass/Vol] 57 mg/dL Normal <=150 [facility] Comment on above: Performed By: #### U MICRO, ERUR #### [facility] [address] [address] [address] Etienne Fitch VLDL CALC 11.4 mg/dL Normal [facility] Comment on above: Performed By: #### U MICRO, ERUR #### [facility] [address] [address] [address] Etienne Fitch PROF CHEM 8 (BAS METB)on Anion gap [Moles/Vol] 7.4 mmol/L Normal [facility] Comment on above: Performed By: #### U MICRO, ERUR #### [facility] [address] [address] [address] Etienne Fitch Calcium [Mass/Vol] 10.0 mg/dL Normal 8.5-10.1 [facility] Comment on above: Performed By: #### U MICRO, ERUR #### [facility] [address] [place] [address] Dr. Etienne Fitch Chloride [Moles/Vol] 101 mmol/L Normal 98-107 [facility] Comment on above: Performed By: #### U MICRO, ERUR #### [facility] [address] [place] [address] Dr. Etienne Fitch CO2 [Moles/Vol] 34.0 mmol/L Critically high 21.0-32.0 [facility] Comment on above: Performed By: #### U MICRO, ERUR #### [facility] [address] [place] [address] Dr. Etienne Fitch Creatinine [Mass/Vol] 1.27 mg/dL Normal 0.70-1.30 [facility] Comment on above: Performed By: #### U MICRO, ERUR #### [facility] [address] [address] [address] Etienne Fitch EGFR-AF SWISS >60 Normal >=60 [facility] Comment on above: Performed By: #### U MICRO, ERUR #### [facility] [address] [address] [address] Etienne Fitch EGFR-NON AF SWISS >60 Normal >=60 [facility] Comment on above: Performed By: #### U MICRO, ERUR #### [facility] [address] [address] [address] Etienne Fitch Glucose [Mass/Vol] 116 mg/dL Critically high 74-106 [facility] Comment on above: Performed By: #### U MICRO, ERUR #### [facility] [address] [address] [address] Etienne Fitch Potassium [Moles/Vol] 4.4 mmol/L Normal 3.5-5.1 [facility] Comment on above: Performed By: #### U MICRO, ERUR #### [facility] [address] [place] [address] Dr. Etienne Fitch Sodium [Moles/Vol] 138 mmol/L Normal 136-145 [facility] Comment on above: Performed By: #### U MICRO, ERUR #### [facility] [address] [place] [address] Dr. Etienne Fitch Urea nitrogen [Mass/Vol] 33.0 mg/dL Critically high 7.0-18.0 [facility] Comment on above: Performed By: #### U MICRO, ERUR #### [facility] [address] [place] [address] Dr. Etienne Fitch Urea nitrogen/Creatini ne [Mass ratio] 26.0 mg/mg Normal [facility] Comment on above: Performed By: #### U MICRO, ERUR #### [facility] [address] [place] [address] Dr. Etienne Fitch CBC AUTO DIFFon 12-12-2022 BASO # 0.0 103/ul Normal 0.0-0.1 [facility] Comment on above: Performed By: #### C BC #### [facility] [address] [place] [address] Dr. Etienne Fitch Basophils/100 WBC (Bld) 0.2 % Normal 0.2-2.0 [facility] Comment on above: Performed By: #### C BC #### [facility] [address] [place] [address] Dr. Etienne Fitch EO # 0.0 103/ul Normal 0.0-0.7 [facility] Comment on above: Performed By: #### C BC #### [facility] [address] [place] [address] Dr. Etienne Fitch Eosinophils/100 WBC (Bld) 0.1 % Critically low 0.9-7.0 [facility] Comment on above: Performed By: #### C BC #### [facility] [address] [place] [address] Dr. Etienne Fitch Erythrocyte distribution width (RBC) [Ratio] 12.8 % Normal 11.0-15.0 [facility] Comment on above: Performed By: #### C BC #### [facility] [address] [place] [address] Dr. Etienne Fitch Hematocrit (Bld) [Volume fraction] 55.0 % Critically high 42.0-54.0 [facility] Comment on above: Performed By: #### C BC #### [facility] [address] [place] [address] Dr. Etienne Fitch Hemoglobin (Bld) [Mass/Vol] 18.5 g/dL Critically high 14.0-18.0 [facility] Comment on above: Performed By: #### C BC #### [facility] [address] [place] [address] Dr. Etienne Fitch IG # 0.07 10e3/ul Critically high 0.00-0.03 [facility] Comment on above: Performed By: #### C BC #### [facility] [address] [place] [address] Dr. Etienne Fitch IG % 0.5 % Normal 0.0-0.5 [facility] Comment on above: Performed By: #### C BC #### [facility] [address] [place] [address] Dr. Etienne Fitch LYMPH # 1.4 103/ul Normal 1.2-3.8 [facility] Comment on above: Performed By: #### C BC #### [facility] [address] [place] [address] Dr. Etienne Fitch Lymphocytes/100 WBC (Bld) 10.1 % Critically low 20.5-60.0 [facility] Comment on above: Performed By: #### C BC #### [facility] [address] [place] [address] Dr. Etienne Fitch MANUAL DIFF REQ NO Normal [facility] Comment on above: Performed By: #### C BC #### [facility] [address] [place] [address] Dr. Etienne Fitch MCH (RBC) [Entitic mass] 29.6 pg Normal 25.9-34.0 [facility] Comment on above: Performed By: #### C BC #### [facility] [address] [place] [address] Dr. Etienne Fitch MCHC (RBC) [Mass/Vol] 33.6 g/dL Normal 29.9-35.2 [facility] Comment on above: Performed By: #### C BC #### [facility] [address] [place] [address] Dr. Etienne Fitch MCV (RBC) [Entitic vol] 87.9 fL Normal 80.0-94.0 [facility] Comment on above: Performed By: #### C BC #### [facility] [address] [place] [address] Dr. Etienne Fitch MONO # 1.5 103/ul Critically high 0.3-0.8 [facility] Comment on above: Performed By: #### C BC #### [facility] [address] [place] [address] Dr. Etienne Fitch Monocytes/100 WBC (Bld) 11.3 % Normal 1.7-12.0 [facility] Comment on above: Performed By: #### C BC #### [facility] [address] [place] [address] Dr. Etienne Fitch NEUT # 10.6 103/ul Critically high 1.4-6.5 [facility] Comment on above: Performed By: #### C BC #### [facility] [address] [place] [address] Dr. Etienne Fitch Neutrophils/100 WBC (Bld) 77.8 % Critically high 43.0-75.0 [facility] Comment on above: Performed By: #### C BC #### [facility] [address] [address] [address] Etienne Fitch Platelet mean volume (Bld) [Entitic vol] 11.1 fL Normal 9.5-13.5 [facility] Comment on above: Performed By: #### C BC #### [facility] [address] [place] [address] Dr. Etienne Fitch PLT 371 103/ul Normal 150-450 [facility] Comment on above: Performed By: #### C BC #### [facility] [address] [address] [address] Etienne Fitch RBC 6.26 106/ul Critically high 4.70-6.10 [facility] Comment on above: Performed By: #### C BC #### [facility] [address] [place] [address] Dr. Etienne Fitch WBC 13.6 103/ul Critically high 4.0-11.0 [facility] Comment on above: Performed By: #### C BC #### [facility] [address] [place] [address] Dr. Etienne Fitch Covid-19 PCR ([facility])on 11-27 SARS-CoV-2 (COVID-19) RNA KWABENA+probe Ql (Unsp spec) Not detected Normal NOT DETECTED [facility] Comment on above: Result Comment: [...] for this test is supported by the Rn Gastroenterology of Health and Human Service's declaration that [...] Performed By: #### U MICRO, ERUR #### [facility] [address] [address] [address] Etienne Fitch ER URINE PROFILEon 3 Bilirubin Ql (U) Negative Normal NEGATIVE [facility] Comment on above: Performed By: #### U MICRO, ERUR #### [facility] [address] [place] [address] Dr. Etienne Fitch Clarity (U) CLEAR Normal CLEAR [facility] Comment on above: Performed By: #### U MICRO, ERUR #### [facility] [address] [place] [address] Dr. Etienne Fitch Color (U) LT. YELLOW Normal YELLOW [facility] Comment on above: Performed By: #### U MICRO, ERUR #### [facility] [address] [place] [address] Dr. Etienne Fitch ERUAHD A micrscopic examina tion will be performed if indicated. Normal [facility] Comment on above: Performed By: #### U MICRO, ERUR #### [facility] [address] [place] [address] Dr. Etienne Fitch Glucose Ql (U) Negative Normal NEGATIVE [facility] Comment on above: Performed By: #### U MICRO, ERUR #### [facility] [address] [place] [address] Dr. Etienne Fitch Hemoglobin Ql (U) Negative Normal NEGATIVE [facility] Comment on above: Performed By: #### U MICRO, ERUR #### [facility] [address] [place] [address] Dr. Etienne Fitch Ketones Ql (U) Negative Normal NEGATIVE [facility] Comment on above: Performed By: #### U MICRO, ERUR #### [facility] [address] [place] [address] Dr. Etienne Fitch LEUKOCYTES Negative Normal NEGATIVE [facility] Comment on above: Performed By: #### U MICRO, ERUR #### [facility] [address] [place] [address] Dr. Etienne Fitch Nitrite Ql (U) Negative Normal NEGATIVE [facility] Comment on above: Performed By: #### U MICRO, ERUR #### [facility] [address] [place] [address] Dr. Etienne Fitch pH (U) 6.0 [pH] Normal 5-9 [facility] Comment on above: Performed By: #### U MICRO, ERUR #### [facility] [address] [place] [address] Dr. Etienne Fitch SPEC GRAVITY 1.015 Normal 1.005-<=1.02 5 [facility] Comment on above: Performed By: #### U MICRO, ERUR #### [facility] [address] [place] [address] Dr. Etienne Fitch UA PROTEIN Negative Normal NEGATIVE/ TRACE [facility] Comment on above: Performed By: #### U MICRO, ERUR #### [facility] [address] [place] [address] Dr. Etienne Fitch UR MICRO IND NOT INDICATED Normal [facility] Comment on above: Performed By: #### U MICRO, ERUR #### [facility] [address] [place] [address] Dr. Etienne Fitch Urobilinogen Qn (U) 0.2 {Nesha'U}/dL Normal 0.2 - 1.0 [facility] Comment on above: Performed By: #### U MICRO, ERUR #### [facility] [address] [place] [address] Dr. Etienne Fitch INFLUENZA A AND B AGon 12-12 INFLUANEGH SEE BELOW Normal [facility] Comment on above: Result Comment: Nega tive for Flu A protein angiten. Infection due to Flu A cannot be ruled out. Flu A angiten in the sample may be below the detection limit of the test. Performed By: #### I NFLUAB #### [facility] [address] [place] [address] Dr. Etienne Fitch INFLUBNEGH SEE BELOW Normal [facility] Comment on above: Result Comment: Nega tive for Flu B protein antigen. Infection due to Flu B cannot be ruled out. Flu B antigen in the sample may be below the detection limit of the test. Performed By: #### I NFLUAB #### [facility] [address] [place] [address] Dr. Etienne Fitch INFLUENZA A AG Negative Normal NEGATIVE SEE COMMENT [facility] Comment on above: Performed By: #### I NFLUAB #### [facility] [address] [place] [address] Dr. Etienne Fitch INFLUENZA B AG Negative Normal NEGATIVE SEE COMMENT [facility] Comment on above: Performed By: #### I NFLUAB #### [facility] [address] [place] [address] Dr. Etienne Fitch PROF 14(COMP METB)on 023 Albumin [Mass/Vol] 4.4 g/dL Normal 3.4-5.0 [facility] Comment on above: Performed By: #### U MICRO, ERUR #### [facility] [address] [place] [address] Dr. Etienne Fitch Albumin/Globulin [Mass ratio] 1.0 {ratio} Normal [facility] Comment on above: Performed By: #### U MICRO, ERUR #### [facility] [address] [place] [address] Dr. Etienne Fitch ALP [Catalytic activity/Vol] 107 U/L Normal 46-116 [facility] Comment on above: Performed By: #### U MICRO, ERUR #### [facility] [address] [place] [address] Dr. Etienne Fitch ALT [Catalytic activity/Vol] 23 U/L Normal 16-63 [facility] Comment on above: Performed By: #### U MICRO, ERUR #### [facility] [address] [place] [address] Dr. Etienne Fitch Anion gap [Moles/Vol] 19.1 mmol/L Normal [facility] Comment on above: Performed By: #### U MICRO, ERUR #### [facility] [address] [place] [address] Dr. Etienne Fitch AST [Catalytic activity/Vol] 24 U/L Normal 15-37 [facility] Comment on above: Performed By: #### U MICRO, ERUR #### [facility] [address] [address] [address] Etienne Fitch Bilirubin [Mass/Vol] 2.2 mg/dL Critically high 0.2-1.0 [facility] Comment on above: Performed By: #### U MICRO, ERUR #### [facility] [address] [address] [address] Etienne Fitch Calcium [Mass/Vol] 9.5 mg/dL Normal 8.5-10.1 [facility] Comment on above: Performed By: #### U MICRO, ERUR #### [facility] [address] [address] [address] Etienne Fitch Chloride [Moles/Vol] 102 mmol/L Normal 98-107 [facility] Comment on above: Performed By: #### U MICRO, ERUR #### [facility] [address] [place] [address] Dr. Etienne Fitch CO2 [Moles/Vol] 26.5 mmol/L Normal 21.0-32.0 [facility] Comment on above: Performed By: #### U MICRO, ERUR #### [facility] [address] [place] [address] Dr. Etienne Fitch Creatinine [Mass/Vol] 2.27 mg/dL Critically high 0.70-1.30 [facility] Comment on above: Performed By: #### U MICRO, ERUR #### [facility] [address] [place] [address] Dr. Etienne Fitch EGFR-AF SWISS 38 mL/min/1.73m2 Critically low >=60 [facility] Comment on above: Performed By: #### U MICRO, ERUR #### [facility] [address] [place] [address] Dr. Etienne Fitch EGFR-NON AF SWISS 32 mL/min/1.73m2 Critically low >=60 [facility] Comment on above: Performed By: #### U MICRO, ERUR #### [facility] [address] [place] [address] Dr. Etienne Fitch Globulin (S) [Mass/Vol] 4.4 g/dL Normal [facility] Comment on above: Performed By: #### U MICRO, ERUR #### [facility] [address] [place] [address] Dr. Etienne Fitch Glucose [Mass/Vol] 136 mg/dL Critically high 74-106 [facility] Comment on above: Performed By: #### U MICRO, ERUR #### [facility] [address] [place] [address] Dr. Etienne Fitch Potassium [Moles/Vol] 4.6 mmol/L Normal 3.5-5.1 [facility] Comment on above: Performed By: #### U MICRO, ERUR #### [facility] [address] [place] [address] Dr. Etienne Fitch Protein [Mass/Vol] 8.8 g/dL Critically high 6.4-8.2 [facility] Comment on above: Performed By: #### U MICRO, ERUR #### [facility] [address] [place] [address] Dr. Etienne Fitch Sodium [Moles/Vol] 143 mmol/L Normal 136-145 [facility] Comment on above: Performed By: #### U MICRO, ERUR #### [facility] [address] [place] [address] Dr. Etienne iFtch Urea nitrogen [Mass/Vol] 89.0 mg/dL Critically high 7.0-18.0 [facility] Comment on above: Performed By: #### U MICRO, ERUR #### [facility] [address] [place] [address] Dr. Etienne Fitch Urea nitrogen/Creatini ne [Mass ratio] 42.0 mg/mg Normal [facility] Comment on above: Performed By: #### U MICRO, ERUR #### [facility] [address] [place] [address] Dr. Etienne Fitch PROF CHEM 8 (BAS METB)on Anion gap [Moles/Vol] 12.4 mmol/L Normal [facility] Comment on above: Performed By: #### U MICRO, ERUR #### [facility] [address] [address] [address] Etienne Fitch Calcium [Mass/Vol] 8.9 mg/dL Normal 8.5-10.1 [facility] Comment on above: Performed By: #### U MICRO, ERUR #### [facility] [address] [address] [address] Etienne Fitch Chloride [Moles/Vol] 110 mmol/L Critically high 98-107 [facility] Comment on above: Performed By: #### U MICRO, ERUR #### [facility] [address] [address] [address] Etienne Fitch CO2 [Moles/Vol] 29.6 mmol/L Normal 21.0-32.0 [facility] Comment on above: Performed By: #### U MICRO, ERUR #### [facility] [address] [place] [address] Dr. Etienne Fitch Creatinine [Mass/Vol] 2.04 mg/dL Critically high 0.70-1.30 [facility] Comment on above: Performed By: #### U MICRO, ERUR #### [facility] [address] [address] [address] Etienne Fitch EGFR-AF SWISS 43 mL/min/1.73m2 Critically low >=60 [facility] Comment on above: Performed By: #### U MICRO, ERUR #### [facility] [address] [address] [address] Etienne Fitch EGFR-NON AF SWISS 36 mL/min/1.73m2 Critically low >=60 [facility] Comment on above: Performed By: #### U MICRO, ERUR #### [facility] [address] [address] [address] Etienne Fitch Glucose [Mass/Vol] 112 mg/dL Critically high 74-106 [facility] Comment on above: Performed By: #### U MICRO, ERUR #### [facility] [address] [address] [address] Etienne Fitch Potassium [Moles/Vol] 5.0 mmol/L Normal 3.5-5.1 [facility] Comment on above: Performed By: #### U MICRO, ERUR #### [facility] [address] [address] [address] Etienne Fitch Sodium [Moles/Vol] 147 mmol/L Critically high 136-145 [facility] Comment on above: Performed By: #### U MICRO, ERUR #### [facility] [address] [address] [address] Etienne Fitch Urea nitrogen [Mass/Vol] 79.0 mg/dL Critically high 7.0-18.0 [facility] Comment on above: Performed By: #### U MICRO, ERUR #### [facility] [address] [address] [address] Etienne Fitch Urea nitrogen/Creatini ne [Mass ratio] 38.7 mg/mg Normal [facility] Comment on above: Performed By: #### U MICRO, ERUR #### [facility] [address] [address] [address] Etienne Fitch Ambulatory Visit Summaryon 1 [...] Nausea & vomiting RLQ abdominal pain Normal [facility] General Surgery Office/Clini c Noteon 08-07-2022 General [...] Father. Heart disease: Mother. TIA: Mother. Normal [facility] Comment on above: Result Comment: Elec tronically Signed By: SAMIR MOCK, Anupam Thompson\Date and Time Signed: 08/07/22 13:24 EDT Reminderson 08-07-2022 Reminders - From: Harika Simmons LPN To: N - Clinical; Sent: 08/07/2022 13:07:35 EDT Show up: 06/23/2032 07:00:00 EDT Subject: colonoscopy recall Due Date/Time: 07/24/2032 07:00:00 EDT Reminder/Recall Patient is due for screening colonoscopy 07/24/2032. [facility] Pathology Noteon 07-29-2022 Pathology Note [id number]#1.00CD:127 [facility] Outside Colonoscopyon 2021 Outside Colonoscopy [id number]#1.00CD:127 [facility] RAD - MRI Reporton 2 RAD - MRI Report [id number]#1.00CD:127 [facility] Lab Reportson 07-22-2022 Lab Reports [id number]#1.00CD:127 [facility] RAD - MRI Reporton 2 RAD - MRI Report [id number]#1.00CD:127 [facility] Covid-19 PCR (CVDTBH)on 06-28 SARS-CoV-2 (COVID-19) RNA KWABENA+probe Ql (Unsp spec) Not detected Normal NOT DETECTED [facility] Comment on above: Result Comment: This test is not yet approved or cleared by the [place] FDA. When there are no FDA-approved or cleared tests available, and other criteria are met, FDA can make tests available under an emergency access mechanism called an Emergency Use Authorization (EUA). The EUA for this test is supported by the [place] of Health and Human Service's (HHS's) declaration [...] consistent with SARS-CoV-2. Performed By: #### C [facility] #### [facility] [address] [place] [address] Dr. Etienne Fitch MRI ABDOMEN WO CONon [...] by: ALEXA HOWARD Date: 2022-07-19 07:49 Normal [facility] Consent for Procedure/Surger yon 07-04-2022 Consent for Procedure/Surgery [id number]#1.00CD:127 Normal [facility] Ambulatory Visit Summaryon 0 07-02-2022 Ambulatory Visit [...] Nausea & vomiting RLQ abdominal pain Normal [facility] ED Note-Physicianon 07-02-20 ED Note-Physician [id number]#1.00CD:127 Normal [facility] RAD - MISCon 06-27-2022 RAD - MISC [id number]#1.00CD:127 Normal [facility] AMYLASEon 06-15-2022 Amylase [Catalytic activity/Vol] 47 U/L Normal 25-115 [facility] Comment on above: Performed By: #### L ACT #### [facility] [address] [address] [address] Etienne Fitch CBC AUTO DIFFon 06-15-2022 BASO # 0.1 103/ul Normal 0.0-0.1 [facility] Comment on above: Performed By: #### U MICRO, ERUR #### [facility] [address] [address] [address] Etienne Fitch Basophils/100 WBC (Bld) 0.5 % Normal 0.2-2.0 [facility] Comment on above: Performed By: #### U MICRO, ERUR #### [facility] [address] [place] [address] Dr. Etienne Fitch EO # 0.0 103/ul Normal 0.0-0.7 [facility] Comment on above: Performed By: #### U MICRO, ERUR #### [facility] [address] [place] [address] Dr. Etienne Fitch Eosinophils/100 WBC (Bld) 0.1 % Critically low 0.9-7.0 [facility] Comment on above: Performed By: #### U MICRO, ERUR #### [facility] [address] [place] [address] Dr. Etienne Fitch Erythrocyte distribution width (RBC) [Ratio] 11.9 % Normal 11.0-15.0 [facility] Comment on above: Performed By: #### U MICRO, ERUR #### [facility] [address] [place] [address] Dr. Etienne Fitch Hematocrit (Bld) [Volume fraction] 48.4 % Normal 42.0-54.0 [facility] Comment on above: Performed By: #### U MICRO, ERUR #### [facility] [address] [place] [address] Dr. Etienne Fitch Hemoglobin (Bld) [Mass/Vol] 16.6 g/dL Normal 14.0-18.0 [facility] Comment on above: Performed By: #### U MICRO, ERUR #### [facility] [address] [place] [address] Dr. Etienne Fitch IG # 0.06 10e3/ul Critically high 0.00-0.03 [facility] Comment on above: Performed By: #### U MICRO, ERUR #### [facility] [address] [place] [address] Dr. Etienne Fitch IG % 0.4 % Normal 0.0-0.5 [facility] Comment on above: Performed By: #### U MICRO, ERUR #### [facility] [address] [place] [address] Dr. Etienne Fitch LYMPH # 0.8 103/ul Critically low 1.2-3.8 [facility] Comment on above: Performed By: #### U MICRO, ERUR #### [facility] [address] [place] [address] Dr. Etienne Fitch Lymphocytes/100 WBC (Bld) 5.0 % Critically low 20.5-60.0 [facility] Comment on above: Performed By: #### U MICRO, ERUR #### [facility] [address] [place] [address] Dr. Etienne Fitch MANUAL DIFF REQ NO Normal [facility] Comment on above: Performed By: #### U MICRO, ERUR #### [facility] [address] [place] [address] Dr. Etienne Fitch MCH (RBC) [Entitic mass] 30.9 pg Normal 25.9-34.0 [facility] Comment on above: Performed By: #### U MICRO, ERUR #### [facility] [address] [place] [address] Dr. Etienne Fitch MCHC (RBC) [Mass/Vol] 34.3 g/dL Normal 29.9-35.2 [facility] Comment on above: Performed By: #### U MICRO, ERUR #### [facility] [address] [place] [address] Dr. Etienne Fitch MCV (RBC) [Entitic vol] 90.1 fL Normal 80.0-94.0 [facility] Comment on above: Performed By: #### U MICRO, ERUR #### [facility] [address] [place] [address] Dr. Etienne Fitch MONO # 0.8 103/ul Normal 0.3-0.8 [facility] Comment on above: Performed By: #### U MICRO, ERUR #### [facility] [address] [place] [address] Dr. Etienne Fitch Monocytes/100 WBC (Bld) 5.3 % Normal 1.7-12.0 [facility] Comment on above: Performed By: #### U MICRO, ERUR #### [facility] [address] [place] [address] Dr. Etienne Fitch NEUT # 13.9 103/ul Critically high 1.4-6.5 [facility] Comment on above: Performed By: #### U MICRO, ERUR #### [facility] [address] [place] [address] Dr. Etienne Fitch Neutrophils/100 WBC (Bld) 88.7 % Critically high 43.0-75.0 [facility] Comment on above: Performed By: #### U MICRO, ERUR #### [facility] [address] [place] [address] Dr. Etienne Fitch Platelet mean volume (Bld) [Entitic vol] 10.9 fL Normal 9.5-13.5 [facility] Comment on above: Performed By: #### U MICRO, ERUR #### [facility] [address] [place] [address] Dr. Etienne Fitch PLT 424 103/ul Normal 150-450 [facility] Comment on above: Performed By: #### U MICRO, ERUR #### [facility] [address] [place] [address] Dr. Etienne Fitch RBC 5.37 106/ul Normal 4.70-6.10 [facility] Comment on above: Performed By: #### U MICRO, ERUR #### [facility] [address] [place] [address] Dr. Etienne Fitch WBC 15.7 103/ul Critically high 4.0-11.0 [facility] Comment on above: Performed By: #### U MICRO, ERUR #### [facility] [address] [place] [address] Dr. Etienne Fitch DRUG SCREEN RAPID (URINE)on 06-15-2022 AMP Negative Normal NEGATIVE [facility] Comment on above: Performed By: #### D RUGRPD #### [facility] [address] [place] [address] Dr. Etienne Fitch BAR Negative Normal NEGATIVE [facility] Comment on above: Performed By: #### D RUGRPD #### [facility] [address] [place] [address] Dr. Etienne Fitch BUP Negative Normal NEGATIVE [facility] Comment on above: Performed By: #### D RUGRPD #### [facility] [address] [place] [address] Dr. Etienne Fitch BZO Negative Normal NEGATIVE [facility] Comment on above: Performed By: #### D RUGRPD #### [facility] [address] [place] [address] Dr. Etienne Fitch MILTON Negative Normal NEGATIVE [facility] Comment on above: Performed By: #### D RUGRPD #### [facility] [address] [place] [address] Dr. Etienne Fitch CUT-OFFS SEE BELOW Normal [facility] Comment on above: Result Comment: AMP [...] ng/mL Performed By: #### D RUGRPD #### [facility] [address] [place] [address] Dr. Etienne Fitch DRUG CUT HEADER DRUG CLASS TEST SYST EM CUT-OFF CONCENTRATIONS ARE FOLLOWS: Normal [facility] Comment on above: Performed By: #### D RUGRPD #### [facility] [address] [place] [address] Dr. Etienne Fitch mAMP Negative Normal NEGATIVE [facility] Comment on above: Performed By: #### D RUGRPD #### [facility] [address] [place] [address] Dr. Etienne Fitch MTD Negative Normal NEGATIVE [facility] Comment on above: Performed By: #### D RUGRPD #### [facility] [address] [address] [address] Etienne Fitch OPI Negative Normal NEGATIVE [facility] Comment on above: Performed By: #### D RUGRPD #### [facility] [address] [place] [address] Dr. Etienne Fitch OXY Negative Normal NEGATIVE [facility] Comment on above: Performed By: #### D RUGRPD #### [facility] [address] [place] [address] Dr. Etienne Fitch PCP Negative Normal NEGATIVE [facility] Comment on above: Performed By: #### D RUGRPD #### [facility] [address] [place] [address] Dr. Etienne Fitch PPX Negative Normal NEGATIVE [facility] Comment on above: Performed By: #### D RUGRPD #### [facility] [address] [place] [address] Dr. Etienne Fitch TCA Negative Normal NEGATIVE [facility] Comment on above: Performed By: #### D RUGRPD #### [facility] [address] [place] [address] Dr. Etienne Fitch THC Positive Abnormal NEGATIVE [facility] Comment on above: Performed By: #### D RUGRPD #### [facility] [address] [place] [address] Dr. Etienne Fitch ER URINE PROFILEon 2 Bilirubin Ql (U) MODERATE Abnormal NEGATIVE [facility] Comment on above: Performed By: #### U MICRO, ERUR #### [facility] [address] [place] [address] Dr. Etienne Fitch Clarity (U) CLEAR Normal CLEAR [facility] Comment on above: Performed By: #### U MICRO, ERUR #### [facility] [address] [place] [address] Dr. Etienne Fitch Color (U) DK. ORANGE Abnormal YELLOW [facility] Comment on above: Performed By: #### U MICRO, ERUR #### [facility] [address] [place] [address] Dr. Etienne Fitch ERUAHD A micrscopic examina tion will be performed if indicated. Normal [facility] Comment on above: Performed By: #### U MICRO, ERUR #### [facility] [address] [place] [address] Dr. Etienne Fitch Glucose Ql (U) Negative Normal NEGATIVE [facility] Comment on above: Performed By: #### U MICRO, ERUR #### [facility] [address] [place] [address] Dr. Etienne Fitch Hemoglobin Ql (U) Negative Normal NEGATIVE [facility] Comment on above: Performed By: #### U MICRO, ERUR #### [facility] [address] [address] [address] Etienne Fitch Ketones Ql (U) 40 mg/dl Abnormal NEGATIVE [facility] Comment on above: Performed By: #### U MICRO, ERUR #### [facility] [address] [place] [address] Dr. Etienne Fitch LEUKOCYTES Negative Normal NEGATIVE [facility] Comment on above: Performed By: #### U MICRO, ERUR #### [facility] [address] [place] [address] Dr. Etienne Fitch Nitrite Ql (U) Negative Normal NEGATIVE [facility] Comment on above: Performed By: #### U MICRO, ERUR #### [facility] [address] [place] [address] Dr. Etienne Fitch pH (U) 6.0 [pH] Normal 5-9 [facility] Comment on above: Performed By: #### U MICRO, ERUR #### [facility] [address] [place] [address] Dr. Etienne Fitch Protein (U) [Mass/Vol] 100 mg/dL Abnormal NEGATIVE/ TRACE [facility] Comment on above: Performed By: #### U MICRO, ERUR #### [facility] [address] [place] [address] Dr. Etienne Fitch SPEC GRAVITY >=1.030 Abnormal 1.005-<=1.02 5 [facility] Comment on above: Performed By: #### U MICRO, ERUR #### [facility] [address] [place] [address] Dr. Etienne Fitch UR MICRO IND INDICATED Normal [facility] Comment on above: Performed By: #### U MICRO, ERUR #### [facility] [address] [place] [address] Dr. Etienne Fitch Urobilinogen Qn (U) 1.0 {Nesha'U}/dL Normal 0.2 - 1.0 [facility] Comment on above: Performed By: #### U MICRO, ERUR #### [facility] [address] [place] [address] Dr. Etienne Fitch ETHANOL (BLD ALC)on 06-15-20 ALC NOTE NOTE: 80 mg/dl is th e legal limit for a blood alcohol level Normal [facility] Comment on above: Performed By: #### E TH #### [facility] [address] [place] [address] Dr. Etienne Fitch Ethanol [Mass/Vol] mg/dL Normal [facility] Comment on above: Performed By: #### E TH #### [facility] [address] [place] [address] Dr. Etienne Fitch LIPASEon 06-15-2022 Lipase [Catalytic activity/Vol] 32.0 U/L Critically low 73.0-393.0 [facility] Comment on above: Performed By: #### L ACT #### [facility] [address] [place] [address] Dr. Etienne Fitch PROF 14(COMP METB)on 022 Albumin [Mass/Vol] 5.4 g/dL Critically high 3.4-5.0 [facility] Comment on above: Performed By: #### L ACT #### [facility] [address] [place] [address] Dr. Etienne Fitch Albumin/Globulin [Mass ratio] 1.4 {ratio} Normal [facility] Comment on above: Performed By: #### L ACT #### [facility] [address] [place] [address] Dr. Etienne Fitch ALP [Catalytic activity/Vol] 93 U/L Normal 46-116 [facility] Comment on above: Performed By: #### L ACT #### [facility] [address] [address] [address] Etienne Fitch ALT [Catalytic activity/Vol] 19 U/L Normal 16-63 [facility] Comment on above: Performed By: #### L ACT #### [facility] [address] [place] [address] Dr. Etienne Fitch Anion gap [Moles/Vol] 18.2 mmol/L Normal [facility] Comment on above: Performed By: #### L ACT #### [facility] [address] [address] [address] Etienne Fitch AST [Catalytic activity/Vol] 23 U/L Normal 15-37 [facility] Comment on above: Performed By: #### L ACT #### [facility] [address] [place] [address] Dr. Etienne Fitch Bilirubin [Mass/Vol] 3.0 mg/dL Critically high 0.2-1.0 [facility] Comment on above: Performed By: #### L ACT #### [facility] [address] [place] [address] Dr. Etienne Fitch Calcium [Mass/Vol] 11.2 mg/dL Critically high 8.5-10.1 [facility] Comment on above: Performed By: #### L ACT #### [facility] [address] [place] [address] Dr. Etienne Fitch Chloride [Moles/Vol] 102 mmol/L Normal 98-107 [facility] Comment on above: Performed By: #### L ACT #### [facility] [address] [address] [address] Etienne Fitch CO2 [Moles/Vol] 27.0 mmol/L Normal 21.0-32.0 [facility] Comment on above: Performed By: #### L ACT #### [facility] [address] [address] [address] Etienne Fitch Creatinine [Mass/Vol] 1.49 mg/dL Critically high 0.70-1.30 [facility] Comment on above: Performed By: #### L ACT #### [facility] [address] [address] [address] Etienne Fitch EGFR-AF SWISS >60 Normal >=60 [facility] Comment on above: Performed By: #### L ACT #### [facility] [address] [address] [address] Etienne Fitch EGFR-NON AF SWISS 51 mL/min/1.73m2 Critically low >=60 [facility] Comment on above: Performed By: #### L ACT #### [facility] [address] [address] [address] Etienne Fitch Globulin (S) [Mass/Vol] 4.0 g/dL Normal [facility] Comment on above: Performed By: #### L ACT #### [facility] [address] [address] [address] Etienne Fitch Glucose [Mass/Vol] 183 mg/dL Critically high 74-106 [facility] Comment on above: Performed By: #### L ACT #### [facility] [address] [address] [address] Etienne Fitch Potassium [Moles/Vol] 4.2 mmol/L Normal 3.5-5.1 [facility] Comment on above: Performed By: #### L ACT #### [facility] [address] [address] [address] Etienne Fitch Protein [Mass/Vol] 9.4 g/dL Critically high 6.4-8.2 [facility] Comment on above: Performed By: #### L ACT #### [facility] [address] [address] [address] Etienne Fitch Sodium [Moles/Vol] 143 mmol/L Normal 136-145 [facility] Comment on above: Performed By: #### L ACT #### [facility] [address] [address] [address] Etienne Fitch Urea nitrogen [Mass/Vol] 19.0 mg/dL Critically high 7.0-18.0 [facility] Comment on above: Performed By: #### L ACT #### [facility] [address] [address] [address] Etienne Fitch Urea nitrogen/Creatini ne [Mass ratio] 12.8 mg/mg Normal [facility] Comment on above: Performed By: #### L ACT #### [facility] [address] [address] [address] Etienne Fitch URINE MICROSCOPIC ONLYon BACTERIA TRACE Abnormal NONE SEEN [facility] Comment on above: Performed By: #### U MICRO, ERUR #### [facility] [address] [place] [address] Dr. Etienne Fitch Bacteria identified Cx Nom (U) NOT INDICATED Normal [facility] Comment on above: Performed By: #### U MICRO, ERUR #### [facility] [address] [place] [address] Dr. Etienne Fitch CAST SEEN Abnormal NONE SEEN [facility] Comment on above: Performed By: #### U MICRO, ERUR #### [facility] [address] [place] [address] Dr. Etienne Fitch Crystals LM Nom (Urine sed) NONE SEEN Normal NONE SEEN [facility] Comment on above: Performed By: #### U MICRO, ERUR #### [facility] [address] [place] [address] Dr. Etienne Fitch Epithelial cells LM Ql (Urine sed) NONE SEEN Normal NONE SEEN /RARE [facility] Comment on above: Performed By: #### U MICRO, ERUR #### [facility] [address] [place] [address] Dr. Etienne Fitch HYALINE CAST MODERATE Normal [facility] Comment on above: Performed By: #### U MICRO, ERUR #### [facility] [address] [address] [address] Etienne Fitch MUCOUS MODERATE Abnormal NONE SEEN [facility] Comment on above: Performed By: #### U MICRO, ERUR #### [facility] [address] [place] [address] Dr. Etienne Fitch RBC 0-2 Normal 0-2 [facility] Comment on above: Performed By: #### U MICRO, ERUR #### [facility] [address] [place] [address] Dr. Etienne Fitch WBC NONE SEEN Normal NONE SEEN [facility] Comment on above: Performed By: #### U MICRO, ERUR #### [facility] [address] [address] [address] Etienne Fitch XR ABD FLAT UP_PA [...] SHILPI THAPA Date: 2022-06-15 09:44 Normal [facility] ED Note-Physicianon 04-03-20 ED Note-Physician [id number]#[id number]:127 Normal [facility] CBC W MANUAL DIFFon 04-02-20 ATYPICAL LYMPH # Normal [facility] Comment on above: Performed By: #### U MICRO, ERUR #### [facility] [address] [place] [address] Dr. Etienne Fitch ATYPICAL LYMPH % Normal [facility] Comment on above: Performed By: #### U MICRO, ERUR #### [facility] [address] [address] [address] Etienne Fitch BAND # Normal 0.0-0.3 [facility] Comment on above: Performed By: #### U MICRO, ERUR #### [facility] [address] [address] [address] Etienne Fitch BAND % Normal 0-5 [facility] Comment on above: Performed By: #### U MICRO, ERUR #### [facility] [address] [place] [address] Dr. Etienne Fitch BASOM # 0.00 103/ul Normal 0.00-0.10 [facility] Comment on above: Performed By: #### U MICRO, ERUR #### [facility] [address] [place] [address] Dr. Etienne Fitch BASOM % 0.0 % Critically low 0.2-2.0 [facility] Comment on above: Performed By: #### U MICRO, ERUR #### [facility] [address] [place] [address] Dr. Etienne Fitch BLAST # Normal [facility] Comment on above: Performed By: #### U MICRO, ERUR #### [facility] [address] [place] [address] Dr. Etienne Fitch BLAST % Normal [facility] Comment on above: Performed By: #### U MICRO, ERUR #### [facility] [address] [place] [address] Dr. Etienne Fitch CORRECTED WBC Normal 4.0-11.0 [facility] Comment on above: Performed By: #### U MICRO, ERUR #### [facility] [address] [place] [place] [address] Dr. Etienne Fitch EOS # 0.00 103/ul Normal 0.00-0.70 [facility] Comment on above: Performed By: #### U MICRO, ERUR #### [facility] [address] [place] [address] Dr. tEienne Fitch EOS% 0.0 % Critically low 0.9-7.0 [facility] Comment on above: Performed By: #### U MICRO, ERUR #### [facility] [address] [place] [address] Dr. Etienne Fitch HCT 43.5 % Normal 42.0-54.0 [facility] Comment on above: Performed By: #### U MICRO, ERUR #### [facility] [address] [place] [address] Dr. Etienne Fitch HGB 14.3 g/dl Normal 14.0-18.0 [facility] Comment on above: Result Comment: gett ing fluids Performed By: #### U MICRO, ERUR #### [facility] [address] [place] [address] Dr. Etienne Fitch LYMPHM # 3.30 103/ul Normal 1.20-3.80 [facility] Comment on above: Performed By: #### U MICRO, ERUR #### [facility] [address] [place] [address] Dr. Etienne Fitch LYMPHM% 20.0 % Critically low 20.5-60.0 [facility] Comment on above: Performed By: #### U MICRO, ERUR #### [facility] [address] [address] [address] Etienne Fitch MCH 30.9 pg Normal 25.9-34.0 [facility] Comment on above: Performed By: #### U MICRO, ERUR #### [facility] [address] [place] [address] Dr. Etienne Fitch MCHC 32.9 g/dl Normal 29.9-35.2 [facility] Comment on above: Performed By: #### U MICRO, ERUR #### [facility] [address] [place] [address] Dr. Etienne Fitch MCV 94.0 fL Normal 80.0-94.0 [facility] Comment on above: Performed By: #### U MICRO, ERUR #### [facility] [address] [place] [address] Dr. Etienne Fitch METAMYELOCYTE # Normal [facility] Comment on above: Performed By: #### U MICRO, ERUR #### [facility] [address] [place] [address] Dr. Etienne Fitch METAMYELOCYTE % Normal [facility] Comment on above: Performed By: #### U MICRO, ERUR #### [facility] [address] [place] [address] Dr. Etienne Fitch MONOM# 2.31 103/ul Critically high 0.30-0.80 [facility] Comment on above: Performed By: #### U MICRO, ERUR #### [facility] [address] [place] [address] Dr. Etienne Fitch MONOM% 14.0 % Critically high 1.7-12.0 [facility] Comment on above: Performed By: #### U MICRO, ERUR #### [facility] [address] [address] [address] Etienne Fitch MPV 10.5 fL Normal 9.5-13.5 [facility] Comment on above: Performed By: #### U MICRO, ERUR #### [facility] [address] [address] [address] Etienne Fitch MYELOCYTE # Normal [facility] Comment on above: Performed By: #### U MICRO, ERUR #### [facility] [address] [address] [address] Etienne Fitch MYELOCYTE % Normal [facility] Comment on above: Performed By: #### U MICRO, ERUR #### [facility] [address] [place] [address] Dr. Etienne Fitch NRBC Normal [facility] Comment on above: Performed By: #### U MICRO, ERUR #### [facility] [address] [address] [address] Etienne Fitch PLT 285 103/ul Normal 150-450 [facility] Comment on above: Performed By: #### U MICRO, ERUR #### [facility] [address] [place] [address] Dr. Etienne Fitch RBC 4.63 106/ul Critically low 4.70-6.10 [facility] Comment on above: Performed By: #### U MICRO, ERUR #### [facility] [address] [place] [address] Dr. Etienne Fitch RDW 12.8 % Normal 11.0-15.0 [facility] Comment on above: Performed By: #### U MICRO, ERUR #### [facility] [address] [address] [address] Etienne Fitch SEG # 10.89 103/ul Critically high 1.40-6.50 [facility] Comment on above: Performed By: #### U MICRO, ERUR #### [facility] [address] [place] [address] Dr. Etienne Fitch SEG % 66.0 % Normal 43.0-75.0 [facility] Comment on above: Performed By: #### U MICRO, ERUR #### [facility] [address] [place] [address] Dr. Etienne Fitch TOXIC GRANULATION 1+ Normal [facility] Comment on above: Performed By: #### U MICRO, ERUR #### [facility] [address] [place] [address] Dr. Etienne Fitch WBC 16.5 103/ul Critically high 4.0-11.0 [facility] Comment on above: Performed By: #### U MICRO, ERUR #### [facility] [address] [address] [address] Etienne Fitch PROF 14(COMP METB)on 022 Albumin [Mass/Vol] 3.2 g/dL Critically low 3.4-5.0 [facility] Comment on above: Performed By: #### L ACT #### [facility] [address] [place] [address] Dr. Etienne Fitch Albumin/Globulin [Mass ratio] 1.1 {ratio} Normal [facility] Comment on above: Performed By: #### L ACT #### [facility] [address] [place] [address] Dr. Etienne Fitch ALP [Catalytic activity/Vol] 55 U/L Normal 46-116 [facility] Comment on above: Performed By: #### L ACT #### [facility] [address] [place] [address] Dr. Etienne Fitch ALT [Catalytic activity/Vol] 28 U/L Normal 16-63 [facility] Comment on above: Performed By: #### L ACT #### [facility] [address] [place] [address] Dr. Etienne Fitch Anion gap [Moles/Vol] 12.6 mmol/L Normal [facility] Comment on above: Performed By: #### L ACT #### [facility] [address] [place] [address] Dr. Etienne Fitch AST [Catalytic activity/Vol] 20 U/L Normal 15-37 [facility] Comment on above: Performed By: #### L ACT #### [facility] [address] [address] [address] Etienne Fitch Bilirubin [Mass/Vol] 2.8 mg/dL Critically high 0.2-1.0 [facility] Comment on above: Performed By: #### L ACT #### [facility] [address] [address] [address] Etienne Fitch Calcium [Mass/Vol] 7.8 mg/dL Critically low 8.5-10.1 [facility] Comment on above: Performed By: #### L ACT #### [facility] [address] [address] [address] Etienne Fitch Chloride [Moles/Vol] 104 mmol/L Normal 98-107 [facility] Comment on above: Performed By: #### L ACT #### [facility] [address] [place] [address] Dr. Etienne Fitch CO2 [Moles/Vol] 28.0 mmol/L Normal 21.0-32.0 [facility] Comment on above: Performed By: #### L ACT #### [facility] [address] [place] [address] Dr. Etienne Fitch Creatinine [Mass/Vol] 0.97 mg/dL Normal 0.70-1.30 [facility] Comment on above: Performed By: #### L ACT #### [facility] [address] [place] [address] Dr. Etienne Fitch EGFR-AF SWISS >60 Normal >=60 [facility] Comment on above: Performed By: #### L ACT #### [facility] [address] [place] [address] Dr. Etienne Fitch EGFR-NON AF SWISS >60 Normal >=60 [facility] Comment on above: Performed By: #### L ACT #### [facility] [address] [place] [address] Dr. Etienne Fitch Globulin (S) [Mass/Vol] 2.9 g/dL Normal [facility] Comment on above: Performed By: #### L ACT #### [facility] [address] [place] [address] Dr. Etienne Fitch Glucose [Mass/Vol] 108 mg/dL Critically high 74-106 [facility] Comment on above: Performed By: #### L ACT #### [facility] [address] [address] [address] Etienne Fitch Potassium [Moles/Vol] 3.6 mmol/L Normal 3.5-5.1 [facility] Comment on above: Performed By: #### L ACT #### [facility] [address] [address] [address] Etienne Fitch Protein [Mass/Vol] 6.1 g/dL Critically low 6.4-8.2 [facility] Comment on above: Performed By: #### L ACT #### [facility] [address] [address] [address] Etienne Fitch Sodium [Moles/Vol] 141 mmol/L Normal 136-145 [facility] Comment on above: Performed By: #### L ACT #### [facility] [address] [address] [address] Etienne Fitch Urea nitrogen [Mass/Vol] 33.0 mg/dL Critically high 7.0-18.0 [facility] Comment on above: Performed By: #### L ACT #### [facility] [address] [address] [address] Etienne Fitch Urea nitrogen/Creatini ne [Mass ratio] 34.0 mg/mg Normal [facility] Comment on above: Performed By: #### L ACT #### [facility] [address] [address] [address] Etienne Fitch US SINGLE QUAD RT [...] ALEXA HOWARD Date: 2022-04-02 09:08 Normal [facility] CBC AUTO DIFFon 04-01-2022 BASO # 0.1 103/ul Normal 0.0-0.1 [facility] Comment on above: Performed By: #### U MICRO, ERUR #### [facility] [address] [place] [address] Dr. Etienne Fitch Basophils/100 WBC (Bld) 0.4 % Normal 0.2-2.0 [facility] Comment on above: Performed By: #### U MICRO, ERUR #### [facility] [address] [place] [address] Dr. Etienne Fitch EO # 0.0 103/ul Normal 0.0-0.7 [facility] Comment on above: Performed By: #### U MICRO, ERUR #### [facility] [address] [place] [address] Dr. Etienne Fitch Eosinophils/100 WBC (Bld) 0.0 % Critically low 0.9-7.0 [facility] Comment on above: Performed By: #### U MICRO, ERUR #### [facility] [address] [place] [address] Dr. Etienne Fitch Erythrocyte distribution width (RBC) [Ratio] 12.8 % Normal 11.0-15.0 [facility] Comment on above: Performed By: #### U MICRO, ERUR #### [facility] [address] [place] [address] Dr. Etienne Fitch Hematocrit (Bld) [Volume fraction] 55.1 % Critically high 42.0-54.0 [facility] Comment on above: Performed By: #### U MICRO, ERUR #### [facility] [address] [place] [address] Dr. Etienne Fitch Hemoglobin (Bld) [Mass/Vol] 18.3 g/dL Critically high 14.0-18.0 [facility] Comment on above: Performed By: #### U MICRO, ERUR #### [facility] [address] [place] [address] Dr. Etienne Fitch IG # 0.11 10e3/ul Critically high 0.00-0.03 [facility] Comment on above: Performed By: #### U MICRO, ERUR #### [facility] [address] [place] [address] Dr. Etienne Fitch IG % 0.5 % Normal 0.0-0.5 [facility] Comment on above: Performed By: #### U MICRO, ERUR #### [facility] [address] [place] [address] Dr. Etienne Fitch LYMPH # 1.2 103/ul Normal 1.2-3.8 [facility] Comment on above: Performed By: #### U MICRO, ERUR #### [facility] [address] [place] [address] Dr. Etienne Fitch Lymphocytes/100 WBC (Bld) 5.7 % Critically low 20.5-60.0 [facility] Comment on above: Performed By: #### U MICRO, ERUR #### [facility] [address] [place] [address] Dr. Etienne Fitch MANUAL DIFF REQ NO Normal [facility] Comment on above: Performed By: #### U MICRO, ERUR #### [facility] [address] [address] [address] Etienne Fitch MCH (RBC) [Entitic mass] 30.7 pg Normal 25.9-34.0 [facility] Comment on above: Performed By: #### U MICRO, ERUR #### [facility] [address] [place] [address] Dr. Etienne Fitch MCHC (RBC) [Mass/Vol] 33.2 g/dL Normal 29.9-35.2 [facility] Comment on above: Performed By: #### U MICRO, ERUR #### [facility] [address] [address] [address] Etienne Fitch MCV (RBC) [Entitic vol] 92.3 fL Normal 80.0-94.0 [facility] Comment on above: Performed By: #### U MICRO, ERUR #### [facility] [address] [place] [address] Dr. Etienne Fitch MONO # 1.6 103/ul Critically high 0.3-0.8 [facility] Comment on above: Performed By: #### U MICRO, ERUR #### [facility] [address] [place] [address] Dr. Etienne Fitch Monocytes/100 WBC (Bld) 7.4 % Normal 1.7-12.0 [facility] Comment on above: Performed By: #### U MICRO, ERUR #### [facility] [address] [place] [address] Dr. Etienne Fitch NEUT # 18.6 103/ul Critically high 1.4-6.5 [facility] Comment on above: Performed By: #### U MICRO, ERUR #### [facility] [address] [place] [address] Dr. Etienne Fitch Neutrophils/100 WBC (Bld) 86.0 % Critically high 43.0-75.0 [facility] Comment on above: Performed By: #### U MICRO, ERUR #### [facility] [address] [place] [address] Dr. Etienne Fitch Platelet mean volume (Bld) [Entitic vol] 10.3 fL Normal 9.5-13.5 [facility] Comment on above: Performed By: #### U MICRO, ERUR #### [facility] [address] [place] [address] Dr. Etienne Fitch PLT 447 103/ul Normal 150-450 [facility] Comment on above: Performed By: #### U MICRO, ERUR #### [facility] [address] [place] [address] Dr. Etienne Fitch RBC 5.97 106/ul Normal 4.70-6.10 [facility] Comment on above: Performed By: #### U MICRO, ERUR #### [facility] [address] [place], [place] [address] Dr. Etienne Fitch WBC 21.6 103/ul Critically high 4.0-11.0 [facility] Comment on above: Performed By: #### U MICRO, ERUR #### [facility] [address] [place], [place] [address] ABD/PELV W CONon [...] ALEXA HOWARD Date: 2022-04-01 15:11 Normal [facility] Covid-19 PCR (CVDTBH)on SARS-CoV-2 (COVID-19) RNA KWABENA+probe Ql (Unsp spec) Not detected Normal NOT DETECTED [facility] Comment on above: Result Comment: [...] for this test is supported by the [employer] of Health and Human Service's declaration that [...] used). Performed By: #### C VDTBH #### [facility] [address] [place] [address] Dr. Etienne Fitch ER URINE PROFILEon 2 Bilirubin Ql (U) MODERATE Abnormal NEGATIVE [facility] Comment on above: Performed By: #### U MICRO, ERUR #### [facility] [address] [place] [address] Dr. Etienne Fitch Clarity (U) CLEAR Normal CLEAR [facility] Comment on above: Performed By: #### U MICRO, ERUR #### [facility] [address] [place] [address] Dr. Etienne Fitch Color (U) DK. ORANGE Abnormal YELLOW [facility] Comment on above: Performed By: #### U MICRO, ERUR #### [facility] [address] [place] [address] Dr. Etienne Fitch ERUAHD A micrscopic examina tion will be performed if indicated. Normal [facility] Comment on above: Performed By: #### U MICRO, ERUR #### [facility] [address] [place] [address] Dr. Etienne Fitch Glucose Ql (U) Negative Normal NEGATIVE [facility] Comment on above: Performed By: #### U MICRO, ERUR #### [facility] [address] [place] [address] Dr. Etienne Fitch Hemoglobin Ql (U) Negative Normal NEGATIVE [facility] Comment on above: Performed By: #### U MICRO, ERUR #### [facility] [address] [place] [address] Dr. Etienne Fitch Ketones Ql (U) Negative Normal NEGATIVE [facility] Comment on above: Performed By: #### U MICRO, ERUR #### [facility] [address] [place] [address] Dr. Etienne Fitch LEUKOCYTES Negative Normal NEGATIVE [facility] Comment on above: Performed By: #### U MICRO, ERUR #### [facility] [address] [place] [address] Dr. Etienne Fitch Nitrite Ql (U) Negative Normal NEGATIVE [facility] Comment on above: Performed By: #### U MICRO, ERUR #### [facility] [address] [place] [address] Dr. Etienne Fitch pH (U) 5.5 [pH] Normal 5-9 [facility] Comment on above: Performed By: #### U MICRO, ERUR #### [facility] [address] [place] [address] Dr. Etienne Fitch Protein (U) [Mass/Vol] 100 mg/dL Abnormal NEGATIVE/ TRACE [facility] Comment on above: Performed By: #### U MICRO, ERUR #### [facility] [address] [place] [address] Dr. Etienne Fitch SPEC GRAVITY >=1.030 Abnormal 1.005-<=1.02 5 [facility] Comment on above: Performed By: #### U MICRO, ERUR #### [facility] [address] [place] [address] Dr. Etienne Fitch UR MICRO IND INDICATED Normal [facility] Comment on above: Performed By: #### U MICRO, ERUR #### [facility] [address] [place] [address] Dr. Etienne Fitch Urobilinogen Qn (U) 1.0 {Nesha'U}/dL Normal 0.2 - 1.0 [facility] Comment on above: Performed By: #### U MICRO, ERUR #### [facility] [address] [place] [address] Dr. Etienne Fitch LACTATE/LACTIC ACIDon 06-06- 2022 Lactate [Moles/Vol] 1.8 mmol/L Normal 0.4-1.9 [facility] Comment on above: Performed By: #### U MICRO, ERUR #### [facility] [address] [place] [address] Dr. Etienne Fitch Lactate [Moles/Vol] 2.3 mmol/L Critically high 0.4-1.9 [facility] Comment on above: Result Comment: repe ated Performed By: #### L ACT #### [facility] [address] [place] [address] Dr. Etienne Fitch LIPASEon 04-01-2022 Lipase [Catalytic activity/Vol] 32.0 U/L Critically low 73.0-393.0 [facility] Comment on above: Performed By: #### U MICRO, ERUR #### [facility] [address] [place] [address] Dr. Etienne Fitch PROF 14(COMP METB)on 022 Albumin [Mass/Vol] 4.9 g/dL Normal 3.4-5.0 [facility] Comment on above: Performed By: #### U MICRO, ERUR #### [facility] [address] [place] [address] Dr. Etienne Fitch Albumin/Globulin [Mass ratio] 1.2 {ratio} Normal [facility] Comment on above: Performed By: #### U MICRO, ERUR #### [facility] [address] [place] [address] Dr. Etienne Fitch ALP [Catalytic activity/Vol] 82 U/L Normal 46-116 [facility] Comment on above: Performed By: #### U MICRO, ERUR #### [facility] [address] [place] [address] Dr. Etienne Fitch ALT [Catalytic activity/Vol] 37 U/L Normal 16-63 [facility] Comment on above: Performed By: #### U MICRO, ERUR #### [facility] [address] [place] [address] Dr. Etienne Fitch Anion gap [Moles/Vol] 13.2 mmol/L Normal [facility] Comment on above: Performed By: #### U MICRO, ERUR #### [facility] [address] [address] [address] Etienne Fitch AST [Catalytic activity/Vol] 31 U/L Normal 15-37 [facility] Comment on above: Performed By: #### U MICRO, ERUR #### [facility] [address] [address] [address] Etienne Fitch Bilirubin [Mass/Vol] 4.8 mg/dL Critically high 0.2-1.0 [facility] Comment on above: Performed By: #### U MICRO, ERUR #### [facility] [address] [address] [address] Etienne Fitch Calcium [Mass/Vol] 9.8 mg/dL Normal 8.5-10.1 [facility] Comment on above: Performed By: #### U MICRO, ERUR #### [facility] [address] [address] [address] Etienne Fitch Chloride [Moles/Vol] 98 mmol/L Normal 98-107 [facility] Comment on above: Performed By: #### U MICRO, ERUR #### [facility] [address] [address] [address] Etienne Fitch CO2 [Moles/Vol] 31.2 mmol/L Normal 21.0-32.0 [facility] Comment on above: Performed By: #### U MICRO, ERUR #### [facility] [address] [address] [address] Etienne Fitch Creatinine [Mass/Vol] 1.63 mg/dL Critically high 0.70-1.30 [facility] Comment on above: Performed By: #### U MICRO, ERUR #### [facility] [address] [address] [address] Etienne Fitch EGFR-AF SWISS 56 mL/min/1.73m2 Critically low >=60 [facility] Comment on above: Performed By: #### U MICRO, ERUR #### [facility] [address] [address] [address] Etienne Fitch EGFR-NON AF SWISS 46 mL/min/1.73m2 Critically low >=60 [facility] Comment on above: Performed By: #### U MICRO, ERUR #### [facility] [address] [address] [address] Etienne Fitch Globulin (S) [Mass/Vol] 4.1 g/dL Normal [facility] Comment on above: Performed By: #### U MICRO, ERUR #### [facility] [address] [address] [address] Etienne Fitch Glucose [Mass/Vol] 142 mg/dL Critically high 74-106 [facility] Comment on above: Performed By: #### U MICRO, ERUR #### [facility] [address] [address] [address] Etienne Fitch Potassium [Moles/Vol] 3.4 mmol/L Critically low 3.5-5.1 [facility] Comment on above: Performed By: #### U MICRO, ERUR #### [facility] [address] [place] [address] Dr. Etienne Fitch Protein [Mass/Vol] 9.0 g/dL Critically high 6.4-8.2 [facility] Comment on above: Performed By: #### U MICRO, ERUR #### [facility] [address] [place] [address] Dr. Etienne Fitch Sodium [Moles/Vol] 139 mmol/L Normal 136-145 [facility] Comment on above: Performed By: #### U MICRO, ERUR #### [facility] [address] [address] [address] Etienne Fitch Urea nitrogen [Mass/Vol] 40.0 mg/dL Critically high 7.0-18.0 [facility] Comment on above: Performed By: #### U MICRO, ERUR #### [facility] [address] [place] [address] Dr. Etienne Fitch Urea nitrogen/Creatini ne [Mass ratio] 24.5 mg/mg Normal [facility] Comment on above: Performed By: #### U MICRO, ERUR #### [facility] [address] [place] [address] Dr. Etienne Fitch TROPONIN, HIGH SENSITIVITYon 04-01-2022 HSTROP 44.4 pg/mL Normal 4.0-76.1 [facility] Comment on above: Result Comment: CUT- OFF POINTS HAVE BEEN ESTABLISHED BASED ON THE FOURTH UNIVERSAL DEFINITIONS OF MYOCARDIAL INFARCTION. THE UPPER REFERENCE LIMIT (URL) OF TROPONIN, DEFINED THE 99TH PERCENTILE OF cTnI DISTRIBUTION IN A REFERENCE POPULATION, HAS BEEN CONFIRMED THE DECISION THRESHOLD FOR [place] DIAGNOSIS. Performed By: #### U MICRO, ERUR #### [facility] [address] [place] [address] Dr. Etienne Fitch URINE MICROSCOPIC ONLYon BACTERIA NONE SEEN Normal NONE SEEN [facility] Comment on above: Performed By: #### U MICRO, ERUR #### [facility] [address] [place] [address] Dr. Etienne Fitch Bacteria identified Cx Nom (U) NOT INDICATED Normal [facility] Comment on above: Performed By: #### U MICRO, ERUR #### [facility] [address] [place] [address] Dr. Etienne Fitch CAST SEEN Abnormal NONE SEEN [facility] Comment on above: Performed By: #### U MICRO, ERUR #### [facility] [address] [place] [address] Dr. Etienne Fitch Crystals LM Nom (Urine sed) NONE SEEN Normal NONE SEEN [facility] Comment on above: Performed By: #### U MICRO, ERUR #### [facility] [address] [place] [address] Dr. Etienne Fitch Epithelial cells LM Ql (Urine sed) NONE SEEN Normal NONE SEEN /RARE [facility] Comment on above: Performed By: #### U MICRO, ERUR #### [facility] [address] [place] [address] Dr. Etienne Fitch MUCOUS NONE SEEN Normal NONE SEEN [facility] Comment on above: Performed By: #### U MICRO, ERUR #### [facility] [address] [place] [address] Dr. Etienne Fitch RBC NONE SEEN Abnormal 0-2 [facility] Comment on above: Performed By: #### U MICRO, ERUR #### [facility] [address] [address] [address] Etienne Fitch WBC 0-2 Abnormal NONE SEEN [facility] Comment on above: Performed By: #### U MICRO, ERUR #### [facility] [address] [address] [address] Etienne Fitch Vital Signs Date Time Vital Sign Value Performing Clinician Faci lity 04-27-2025 11:26-0400 Body height 182.9 cm Yasmin Wood 3D TECHNOLOGIST-ARTIFACTS CONSERVATOR Work Phone: [facility] 04-27-2025 11:26-0400 Body mass index (BMI) [Ratio] 28.24 kg/m2 Yasminscot Wood 3D TECHNOLOGIST-ARTIFACTS CONSERVATOR Work Phone: [facility] 04-27-2025 11:26-0400 Body weight 94.44 kg Yasminscot Wood 3D TECHNOLOGIST-ARTIFACTS CONSERVATOR Work Phone: [facility] 04-27-2025 11:26-0400 Diastolic blood pressure 88 mm[Hg] Yasminscot Wood 3D TECHNOLOGIST-ARTIFACTS CONSERVATOR Work Phone: [facility] 04-27-2025 11:26-0400 Heart rate 68 /min Yasminscot Wood 3D TECHNOLOGIST-ARTIFACTS CONSERVATOR Work Phone: [facility] 04-27-2025 11:26-0400 SaO2% (BldA) [Mass fraction] 99 % Yasminscot Wood 3D TECHNOLOGIST-ARTIFACTS CONSERVATOR Work Phone: [facility] 04-27-2025 11:26-0400 Systolic blood pressure 127 mm[Hg] Yasminscot Wood 3D TECHNOLOGIST-ARTIFACTS CONSERVATOR Work Phone: [facility] 07-02-2022 13:15-0400 Blood Pressure Location Anupam POOLE [facility] 07-02-2022 13:15-0400 Diastolic blood pressure 74 mm[Hg] Anupam POOLE [facility] 07-02-2022 13:15-0400 Heart rate 72 /min Anupam POOLE [facility] 07-02-2022 13:15-0400 Respiratory rate 16 /min Anupam POOLE [facility] 07-02-2022 13:15-0400 Systolic blood pressure 120 mm[Hg] Anupam POOLE [facility] Encounters Encounter Date Encounter Type Care Provider Facility Start: 04-28-2025 End: 04-28-2025 Telephone encounter [facility] Disorders Comment on above: Sleep Lab (PSG Order ) Start: 04-27-2025 End: 04-27-2025 Orders Only Nannette Perez APRN-PHYSICIAN RELATIONS SPECIALIST Work Phone: INTERFACE[facility]ONLY [employer] Start: 04-27-2025 End: 04-27-2025 ambulatory [facility] Start: 04-27-2025 End: 04-27-2025 Office outpatient new 45 minutes [facility] 3D TECHNOLOGIST-ARTIFACTS CONSERVATOR Work Phone: [facility] Comment on above: Fatigue, unspecified type (Primary Dx); Sleep apnea, unspecified type; Snoring; BMI 28.0-28.9,adult; Overweight with body mass index (BMI) of 28 to 28.9 in adult; Marijuana use Start: 01-26-2025 End: 01-26-2025 Orders Only Nannette Perez 3D TECHNOLOGIST-PHYSICIAN RELATIONS SPECIALIST Work Phone: INTERFACE[facility]ONLY [employer] Comment on above: Encounter for screen ing for other viral diseases Encounter for screen ing for cardiovascular disorders Encounter for genera l adult medical examination without abnormal findings Encounter for screen ing for human immunodeficiency virus (HIV) Encounter for screen ing for other suspected endocrine disorder Start: 01-26-2025 End: 01-26-2025 Patient encounter status Nannette Perez 3D TECHNOLOGIST-PHYSICIAN RELATIONS SPECIALIST Work Phone: [facility] Start: 02-07-2023 Encounter for genera l adult medical examination without abnormal findings JEOVANY DUNCAN [facility] Start: 01-29-2023 End: 01-30-2023 ambulatory JEOVANY SHAMMO Facility:[facility] Start: 01-29-2023 End: 01-30-2023 Encounter for general adult medical examination without abnormal findings JEOVANY DUNCAN Facility:[facility] Start: 12-18-2022 End: 12-19-2022 ambulatory MAKENZIE TURNER Facility:[facility] Start: 12-12-2022 End: 12-12-2022 ambulatory EVELYN GLASER . Facility:[facility] Start: 08-07-2022 ambulatory Anupam POOLE Facility :[facility] Start: 08-07-2022 End: 08-07-2022 Patient encounter procedure Anupam POOLE General [facility] Start: 07-24-2022 Encounter for prepro cedural laboratory examination DR ANUPAM POOLE . [facility] Start: 07-24-2022 End: 07-25-2022 ambulatory Anupam POOLE Facility:CD:[id number] Start: 07-20-2022 End: 07-21-[address] ANUPAM POOLE . Facility:[facility] Start: 07-20-2022 End: 07-21-2022 Encounter for preprocedural laboratory examination DR ANUPAM POOLE . Facility:[facility] Start: 07-17-2022 End: 07-18-[address] ANUPAM POOLE . Facility:[facility] Start: 07-02-2022 End: 07-03-2022 ambulatory Anupam POOLE Facility:[facility] Start: 07-02-2022 End: 07-02-2022 Patient encounter procedure Anupam POOLE [facility] Start: 06-15-2022 End: 06-15-2022 ambulatory EVELYN GLASER . Facility:[facility] Start: 04-23-2022 ambulatory Anupam POOLE Facility :[facility] Start: 04-02-2022 ambulatory Anupam POOLE Facility :[facility] Start: 04-01-2022 End: 04-02-[address] ALEXA HOWARD Facility: Procedures Date Procedure Procedure Detail Performing Clinician Start: 07-24-2022 Colonoscopy Anupam ELLIOTT Start: 07-24-2022 Esophagogastroduodenoscopy Anupam POOLE None (qualifier value) Elias POOLE Plan of Treatment Date Care Activity Detail Author Start: 11-11-2033 DTaP,Tdap and Td Vaccines (2 - Td or Tdap) DTaP,Tdap and Td Vaccines (2 - Td or Tdap) [facility] Start: 04-27-2026 Adult BMI Screening Adult BMI Screen ing [facility] Start: 04-27-2026 Tobacco Screening Tobacco Screening [facility] Start: 11-02-2025 End: 11-02-2025 Patient encounter procedure 11/02/2025 9:45 AM EST Office Visit [facility] [address] [facility] [address] [place] [address] Yasmin Wood, 3D TECHNOLOGIST-ARTIFACTS CONSERVATOR [address] [place] [address], [address] [address] [facility] Start: 06-27-2025 Influenza vaccination Influenza Vacc ine [facility] Start: 04-04-2025 End: 04-27-2026 CBC panel - Blood by Automated count CBC without diff Lab Routine Expected: 04/04/2025, Expires: 04/27/2026 [employer] Work Phone: Comment on above: Expected: 04/04/2025 , Expires: 04/27/2026 Start: 04-04-2025 End: 04-27-2026 Comprehensive metabolic 2000 panel - Serum or Plasma Comprehensive metabolic panel Lab Routine Expected: 04/04/2025, Expires: 04/27/2026 [employer] Work Phone: Comment on above: Expected: 04/04/2025 , Expires: 04/27/2026 Start: 04-04-2025 End: 04-27-2026 Hepatitis C virus Ab [Presence] in Serum or Plasma by Immunoassay Hepatitis C(HCV) Ab w/ Reflex to PCR Lab Routine Expected: 04/04/2025, Expires: 04/27/2026 [employer] Work Phone: Comment on above: Expected: 04/04/2025 , Expires: 04/27/2026 Start: 04-04-2025 End: 04-27-2026 HIV 1+2 Ab+HIV1 p24 Ag [Presence] in Serum or Plasma by Immunoassay HIV 1&2 AB/AG Screen (P24 AG) Lab Routine Expected: 04/04/2025, Expires: 04/27/2026 [employer] Work Phone: Comment on above: Expected: 04/04/2025 , Expires: 04/27/2026 Start: 04-04-2025 End: 04-27-2026 Lipid 1996 panel - Serum or Plasma Lipid profile Lab Routine Expected: 04/04/2025, Expires: 04/27/2026 2 Minutes Phone: Comment on above: Expected: 04/04/2025 , Expires: 04/27/2026 Start: 04-04-2025 End: 04-27-2026 TSH with Reflex TSH with Reflex Lab Routine Expected: 04/04/2025, Expires: 04/27/2026 2 Minutes Phone: Comment on above: Expected: 04/04/2025 , Expires: 04/27/2026 Start: 01-26-2025 End: 01-26-2026 CBC panel - Blood by Automated count CBC without diff Lab Routine Encounter for general adult medical examination without abnormal findings Expected: 01/26/2025, Expires: 01/26/2026 [employer] Work Phone: Comment on above: Expected: 01/26/2025 , Expires: 01/26/2026 Start: 01-26-2025 End: 01-26-2026 Comprehensive metabolic 2000 panel - Serum or Plasma Comprehensive metabolic panel Lab Routine Encounter for general adult medical examination without abnormal findings Expected: 01/26/2025, Expires: 01/26/2026 2 Minutes Phone: Comment on above: Expected: 01/26/2025 , Expires: 01/26/2026 Start: 01-26-2025 End: 01-26-2026 Hepatitis C(HCV) Ab w/ Reflex to PCR Hepatitis C(HCV) Ab w/ Reflex to PCR Lab Routine Encounter for screening for other viral diseases Expected: 01/26/2025, Expires: 01/26/2026 [employer] Work Phone: Comment on above: Expected: 01/26/2025 , Expires: 01/26/2026 Start: 01-26-2025 End: 01-26-2026 HIV 1&2 AB/AG Screen (P24 AG) HIV 1&2 AB/AG Screen (P24 AG) Lab Routine Encounter for screening for human immunodeficiency virus (HIV) Expected: 01/26/2025, Expires: 01/26/2026 [employer] Work Phone: Comment on above: Expected: 01/26/2025 , Expires: 01/26/2026 Start: 01-26-2025 End: 01-26-2026 Lipid 1996 panel - Serum or Plasma Lipid profile Lab Routine Encounter for screening for cardiovascular disorders Expected: 01/26/2025, Expires: 01/26/2026 [employer] Work Phone: Comment on above: Expected: 01/26/2025 , Expires: 01/26/2026 Start: 01-26-2025 End: 01-26-2026 TSH with Reflex TSH with Reflex Lab Routine Encounter for screening for other suspected endocrine disorder Expected: 01/26/2025, Expires: 01/26/2026 [employer] Work Phone: Comment on above: Expected: 01/26/2025 , Expires: 01/26/2026 Start: 06-27-2024 COVID-19 Vaccine ( season) COVID[facility]ine [facility] Start: 1996 Adult BMI Follow Up Plan Adult BMI Follow Up Plan [facility] Start: 1996 Adult BMI Screening Adult [facility] Screen ing [facility] Start: 1990 Depression Screening Depression Scre ening [facility] Start: 1990 Tobacco Screening Tobacco Screening [facility] End: 04-27-2026 [facility] Routine Sleep apnea, unspecified type 1 Occurrences starting 04/27/2025 until 04/27/2026 [facility] Work Phone: Comment on above: 1 Occurrences starti ng 04/27/2025 until 04/27/2026 Immunizations Immunization Date Immunization Notes Care Provider Aneesh moore 11-11-2023 influenza virus vaccine, unspecified formulation Nannette Tarun 3D TECHNOLOGIST-PHYSICIAN RELATIONS SPECIALIST Work Phone: [facility] Payers Date Payer Category Payer Medicaid HMO [employer] [id number] 1978 Unknown [id number] 1978 Unknown [id number] 1978 Unknown [id number] 1978 Unknown [id number] 1978 Unknown [id number] 1978 Unknown [id number] 1978 Unknown [id number] [id number] 1978 Unknown [id number] 1978 Unknown [id number] 1978 Unknown [id number] 1978 Unknown [id number] 1978 Unknown [id number] 1978 Unknown [id number] 1959 Unknown [id number] Social History Date Type Detail Facility Start: 07-02-2022 End: 04-27-2025 Tobacco smoking status Ex-smoker (finding) [facility] Tobacco smoking status Smokeless tobacco user within last 30 days [facility] Start: 02-03-2021 End: 04-27-2025 Sex Assigned At Male [facility] Tobacco smoking stat [facility] Tobacco smoking consumption unknown [facility] Start: 02-03-2021 End: 04-27-2025 History of Social function [facility] Start: 1980 Sex assigned at Not on file [facility] Start: 06-01-2015 Sex Male (finding) [facility] Start: 10-27-1994 End: 10-27-2013 History of tobacco use Current smoker [facility] Start: 10-27-1994 End: 10-27-2013 History of tobacco use Cigarette Smoker [facility] Start: 04-27-2025 Tobacco use and exposure Former smokeless tobacco user [facility] History of tobacco use Chews Tobacco [facility] Start: 04-27-2025 Alcoholic beverage intake Lifetime non-drinker (finding) [facility] Functional Status Date Assessment Result Facility 07-02-2022 Functional Status N/A [facility] Clinical Notes 04-03-2022 to 04-28-2025 Telephone Encounter [...] notes in epic documented in this encounter [facility] 04-28-2025 Telephone encounter Note 04/27 Order received 1st call to schedule pt's phone is not accepting messages sent letter PSG Order and 04/27 Nina notes in epic [facility] 04-27-2025 History of Present illness Narrative Images from the original note were not included. Chief Complaint: Jitendra Servin is a 44 y.o. male present for initial visit regarding suspected TWIN. HPI Sleep Questionnaire 04/27/2025 11:32 AM EDT - Filed by KARSTEN Li Have you previously had a sleep [...] use phone/computer in bed? No Number of [id number]-night awakenings per night? 1 Cause of awakenings [...] hemoptysis. [facility] SLEEPINESS SCALE 04/27/2025 11:00 AM [place] Sleepiness Scale Sitting and Reading 1 Watching [...] Medical History: Diagnosis Date Bipolar disorder, unspecified ([facility]) CURRENT MEDICATIONS Reviewed with patient. 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 CC: [facility] Anival Aviles [facility] Office: [phone] 11:46 AM on 04/27/2025 This note is dictated with the use of M*Modal.Please note that this dictation was completed with computer voice recognition software. Quite often unanticipated grammatical, syntax, homophones, and other interpretive errors are inadvertently transcribed by the computer software. Please disregard these errors. Please excuse any errors that have escaped final proofreading. LANDRY Diaz 04/27/25 1146 documented in this encounter [facility] 04-27-2025 Instructions LANDRY Diaz - 04/27/2025 11:00 AM EDT If you re looking for general health and wellness resources, please visit [email or web address]. documented in this encounter [facility] 07-24-2022 Note OPERATIVE NOTE OPERATION DATE: [...] in good condition. CC: Family physician [facility] 07-02-2022 Note Chief Complaint consultation for ABD pain HPI Staff 41 year old male presents on consultation from [facility] ED for abdominal pain. Presented to [...] Allergies No K (more content not included)... [facility] Comment on above: Result Comment: Elec tronically Signed By: SAMIR MOCK, Anupam Benson.br\Date and Time Signed: 07/02/22 21:30 EDT 04-03-2022 Note [id number]:[id number] [facility] Evaluation + Plan note No data available for this section [facility] Evaluation note Diagnosis Encounter for screening for other viral diseases documented in this encounter [facility] Diagnosis Encounter for screening for cardiovascular disorders documented in this encounter [facility]* Diagnosis Encounter for general adult medical examination without abnormal findings documented in this encounter [facility]* Diagnosis Encounter for screening for human immunodeficiency virus (HIV) documented in this encounter [facility]* Diagnosis Encounter for screening for other suspected endocrine disorder documented in this encounter [facility]* Diagnosis Fatigue, unspecified type- Primary Sleep apnea, unspecified type Snoring Other dyspnea and respiratory abnormality BMI 28.0-28.9,adult Overweight with body mass index (BMI) of 28 to 28.9 in adult Marijuana use documented in this encounter [facility] Dis[facility] No data available for this section [facility] InstructionsNot on filedocumented in this encounter [facility] SystemInstructionsNot on filedocumented in this encounter [facility] Relations SystemInstructionsNot on filedocumented in this encounter [facility] SystemProgress note No data available for this section [facility] Summary Purpose Family History No Family History Records FoundNo Family History Records FoundNo Family History Records Found Advance Directives No Advanced Directives Records FoundNo Advanced Directives Records FoundNo Advanced Directives Records Found Additional Source Comments Care Team (unrecognized sect ion and content) Sales Operations Lead Relationship Specialty Start Date End Date No Pcp, [place] [address] [facility]CP - [facility] 02/03/21 Sales Operations Lead Relationship Specialty Start Date End Date [facility] [address] [place] PCP - [facility] Medicine 04/27/25 Sales Operations Lead Relationship Specialty Start Date End Date [facility] [address] [place] PCP - [facility] 04/27/25 Sales Operations Lead Relationship Specialty Start Date End Date Services, [facility] [address] [place] PCP - [facility] Medicine 04/27/25 (unrecognized sect ion and content) No Status Records FoundNo Status Records FoundNo Status Records Found INFORMATION SOURCE (unrecogn ized section and content) DATE CREATED AUTHOR 08/07/2022 [facility] DATE CREATED AUTHOR AUTHOR'S ORGANIZ ATION 02/08/2023 [facility] DATE CREATED AUTHOR AUTHOR'S ORGANIZ ATION 04/30/2025 [facility] Reason for Visit (unrecogniz ed section and content) Reason Comments New Patient No previous sleep st udyNo PAP therapyNo Oral Appliances Specialty Diagnoses / Procedures Referred By Contac t Referred To Contact Pulmonary Medicine Diagnoses Sleep apnea, unspecified type Nannette Perez, 3D TECHNOLOGIST-PHYSICIAN RELATIONS SPECIALIST [address] [place] [address] Phone: tel: fax: [facility] [address] [facility] [place] [place], [place] [address] Phone: tel: fax: Referral ID Status Reason Start Date Expiration Date Visits Requested Visits Authorized [id number] Pending Review Specialty Services Required 01/27/2025 01/27/2026 [...] BE BASED ON THE PRIMARY CLINICAL RECORDS. [facility] [place] [facility]. provides no warranty or guarantee of the accuracy or completeness of information in this document.
--- NOTE | 2025-05-01 16:28 | ECG_ITS ---
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 Measurements Intervals [place] Rate: 94 P: 73 AL: 155 QRS: 89 QRSD: 116 T: 50 QT: 370 QTc: 465 Interpretive Statements SINUS RHYTHM POSSIBLE RIGHT ATRIAL ENLARGEMENT [0.25mV P WAVE] POSSIBLE LEFT ATRIAL ENLARGEMENT [-0.1mV P WAVE IN V1/V2] INCOMPLETE RIGHT BUNDLE BRANCH BLOCK [90+ ms QRS DURATION, TERMINAL R IN V1/V2, 40+ ms S IN I/aVL/V4/V5/V6] POSSIBLE LATERAL MYOCARDIAL INFARCTION [30 ms Q WAVE IN I/aVL/V5/V6], OF INDETERMINATE AGE PROBABLE INFERIOR MYOCARDIAL INFARCTION [35 ms Q WAVE IN II/aVF], PROBABLY OLD Compared to ECG 02/05/2024 22:15:51 Right-axis deviation no longer present Myocardial infarct finding still present Electronically Signed On 05-02-2025 20:27:23 EDT by JOVON AGARWAL M.D.
[2025-05-01] MEDS: HEPARIN SODIUM (PORCINE) 5,000 UNIT/ML VIAL 5000 UNIT SUBQ ×2 (16:41→23:32)
[2025-05-01 17:04] LABS: Glucose Urine UA NEGATIVE (NEGATIVE)
[2025-05-01 17:13] LABS: Cast Seen? SEEN #/LPF (NONE SEEN); Crystals Seen? None Seen #/HPF (None Seen)
[2025-05-01 17:18] LABS: Cannabinoid Screen Urine POSITIVE (NEGATIVE); Methamphetamines Screen Urine NEGATIVE (NEGATIVE); Tricyclic Antidepressant Urine NEGATIVE (NEGATIVE)
[2025-05-01] MEDS: 0.9 % SODIUM CHLORIDE 1,000 ML 125 ML IV (20:18)
[2025-05-01] MEDS: LEVOFLOXACIN IN DEXTROSE 5 % 750 MG/150 ML PREMIX 100 MG IV (20:21)
[2025-05-01] MEDS: FLUOXETINE HCL 20 MG CAPSULE 60 MG PO (22:07)
[2025-05-01] MEDS: SODIUM CHLORIDE 0.45 % 1,000 ML 125 ML IV (22:28)
[2025-05-02] VITALS (7 sets, daily range): BP systolic 130–165; BP diastolic 84–108; PULSE 81–96; TEMP 36.6–36.9; O2SAT 95–99
[2025-05-02 06:00] LABS: Hematocrit 50.0 % (42.0-54.0); Hemoglobin 16.0 g/dL (14.0-18.0); Immature Granulocytes Abs Auto 0.10 10^3/uL (0.00-0.03); Immature Granulocytes Pct Auto 0.7 % (0.0-0.5); Lymphocytes Absolute Auto 1.6 10^3/uL (1.2-3.8); Mean Corpuscular HGB Conc 32.0 g/dL (29.9-35.2); Mean Corpuscular Hemoglobin 30.1 pg (25.9-34.0); Mean Corpuscular Volume 94.0 fL (80.0-94.0); Platelet Count 355 10^3/uL (150-450); Red Blood Count 5.32 10^6/uL (4.70-6.10); White Blood Count 15.4 10^3/uL (4.0-11.0)
[2025-05-02] MEDS: SODIUM CHLORIDE 0.45 % 1,000 ML 125 ML IV (06:10)
[2025-05-02 06:23] LABS: Alanine Aminotransferase 34 U/L (16-63); Albumin Globulin Ratio 0.9; Albumin Level 3.6 g/dL (3.4-5.0); Alkaline Phosphatase 103 U/L (46-116); Anion Gap 17.9; Aspartate Amino Transferase 31 U/L (15-37); Calcium 8.7 mg/dL (8.5-10.1); Carbon Dioxide 23.4 mmol/L (21.0-32.0); Chloride 110 mmol/L (98-107); Estimated GFR (African America 47 (>=60 mL/min/1.73m^2); Estimated GFR (Non-African Ame 39 (>=60 mL/min/1.73m^2); Globulin 3.8 g/dL; Glucose 109 mg/dL (74-106); Potassium 4.3 mmol/L (3.5-5.1); Sodium 147 mmol/L (136-145); Total Protein 7.4 g/dL (6.4-8.2)
[2025-05-02 06:39] LABS: Blood Urea Nitrogen 79.0 mg/dL (7.0-18.0)
[2025-05-02] MEDS: PANTOPRAZOLE SODIUM 40 MG TABLET.DR PO (08:02)
[2025-05-02] MEDS: HEPARIN SODIUM (PORCINE) 5,000 UNIT/ML VIAL 5000 UNIT SUBQ ×3 (08:02→21:38)
--- NOTE | 2025-05-02 08:44 | SWNOTE1 ---
SW and I met with pt in room to discuss pt's marijuana use per consult. SW did ask pt how he uses marijuana and for what reason. Pt did not really have an answer. SW asked pt if he was in pain at this time. Pt voiced no. SW did ask pt if his marijuana use was affecting his life or job. Pt voiced yes. SW asked pt if it was affecting his health, pt voiced yes. SW asked pt if he has a PCP, pt voiced no. SW did suggest following up with Dr. Newton, pt was agreeable. SW voiced to pt that we can look into resources for weaning off marijuana. Pt voiced understanding. SW let case management know about setting up with Dr. Newton. SW to follow as needed.
--- NOTE | 2025-05-02 09:11 | SWNOTE1 ---
SW gave pt online resource for marijuana anonymous.
--- NOTE | 2025-05-02 09:18 | SWNOTE1 ---
SW called Dr. Sidhu's office in [place] and Dr. Strauss's office in [place], neither of those offices are taking new patients at this time.
[2025-05-02] MEDS: SODIUM CHLORIDE 0.45 % 1,000 ML 75 ML IV ×2 (10:27→21:21)
[2025-05-02] MEDS: AMLODIPINE BESYLATE 5 MG TABLET PO (10:27)
--- NOTE | 2025-05-02 12:02 | PM.PN ---
Progress Note: Subjective Subjective Interval history: He is feel much better. Resolution of nausea vomiting. No abdominal pain but reported having abdominal cramps. No diarrhea. No chest pain. No cough or congestion. Exam Narrative Exam Narrative: [pt is awake and alert. oriented to place, time and person, dry skin and buccal mucosa HEENT: [place] conjunctiva and NL buccal mucosa Neck: Supple, no tenderness Endocrine: No Thyromegaly. Vascular: No JVD or carotid bruit. Lymphatic: No cervical lymphadenopathy. Chest: CTA no DTP. Heart RRR, no extra sound or murmur. Abd: Soft, no tenderness, no rebound and no rigidity. Mild diffuse discomfort. No guarding, no tenderness PCP Neuro: A A O. Nl speech, comprehension and attention. Nl and symetrical motor and tone examination through out. []] Constitutional Vital Signs, click to edit/add: Last Vital Signs Temp 97.8 F 05/02/25 11:44 Pulse 82 05/02/25 11:44 Resp 18 05/02/25 11:44 BP 130/87 05/02/25 11:44 Pulse Ox 95 05/02/25 11:44 O2 Del Method Room Air 05/02/25 11:44 Progress Note: Objective Labs Labs: Short CBC 05/01/25 05/02/25 Range/Units 13:42 05:04 WBC 30.3 H* 15.4 H (4.0-11.0) 10^3/uL Hgb 19.0 H 16.0 (14.0-18.0) g/dL Hct 56.0 H 50.0 (42.0-54.0) % Plt Count 582 H 355 (150-450) 10^3/uL BMP 05/01/25 05/02/25 13:42 05:04 Sodium 151 H 147 H Potassium 4.6 4.3 Chloride 108 H 110 H Carbon Dioxide 17.1 L 23.4 BUN 106.0 H* 79.0 H* Creatinine 3.69 H 1.88 H Glucose 124 H 109 H Calcium 10.5 H 8.7 Liver Function 05/02/25 Range/Units 05:04 Total Bilirubin 1.5 H (0.2-1.0) mg/dL AST 31 (15-37) U/L ALT 34 (16-63) U/L Alkaline Phosphatase 103 (46-116) U/L Albumin 3.6 (3.4-5.0) g/dL Urine 05/01/25 Range/Units 16:09 Urine Color Yellow (YELLOW) Urine Clarity Clear (CLEAR) Urine pH 5.5 (5.0-9.0) Ur Specific [place] >=1.030 A (1.005-1.025) Urine Protein Trace (NEG/TRACE) mg/dL Urine Glucose (UA) Negative (NEGATIVE) mg/dL Progress Note: A&P Assessment and Plan (1) Cannabinoid hyperemesis syndrome: (2) Acute kidney injury: (3) SIRS (systemic inflammatory response syndrome): (4) Dehydration: (5) Hypernatremia: (6) Elevated bilirubin: Plan MACKENZIE secondary to severe dehydration and volume loss CAT scan of the abdomen does not show any obstructive uropathy. UA does not show any RBC or significant proteinuria to suggest nephritic or nephrotic syndrome. Improving with IV fluid infusion. Continue IV fluid infusion Dehydration with volume loss secondary to excessive vomiting Likely caused by marijuana hyperemesis syndrome CAT scan of the abdomen pelvis does not show an acute intra-abdominal process Hypernatremia with metabolic acidosis Likely secondary to above. Continue hypotonic IV fluid infusion SIRS present on admission Likely secondary to above. No clinical evidence of infection at this time. Blood cultures pending. UA is negative. CT abdomen pelvis no intra-abdominal infectious process. Patient does not have any respiratory symptoms Elevated bilirubin. I reviewed his record. Patient has a chronic elevation of the bilirubin. CAT scan showed hepatic steatitis. Requested viral hepatitis panel. Otherwise at this care is broad differential diagnosis including but not limited to viral, autoimmune, infiltrative or neoplastic liver disease that would need to be addressed from the diagnostic and therapeutic standpoint. Could be completed in the outpatient setting by PCP Marijuana use. The patient admitted that he uses marijuana excessively. Counseling and education were provided for patient to reduce marijuana use significantly or quit unless prescribed for medical reason Depression and other psychiatric illness, could be bipolar. Continue preadmission home medication including Prozac and Zyprexa. Hypertension I started patient on amlodipine Chronic medical conditions not listed above, incidental findings seen on labs and imaging. These would need to be addressed. Could be addressed when time and condition are appropriate. Could be addressed in the outpatient setting by PCP collaboration with other needed outpatient providers.
[2025-05-02] MEDS: ACETAMINOPHEN 325 MG TABLET 650 MG PO (14:35)
[2025-05-02] MEDS: FLUOXETINE HCL 20 MG CAPSULE 60 MG PO (20:17)
[2025-05-02] MEDS: HYOSCYAMINE SULFATE 0.125 MG TAB.SUBL SL (20:39)
[2025-05-03] VITALS: BP 132/84; PULSE 82; TEMP 36.9; O2SAT 98
[2025-05-03] MEDS: HYOSCYAMINE SULFATE 0.125 MG TAB.SUBL SL ×2 (01:58→08:59)
[2025-05-03 04:15] VITALS: BP 148/87; PULSE 77; TEMP 36.4; O2SAT 95
[2025-05-03] MEDS: HEPARIN SODIUM (PORCINE) 5,000 UNIT/ML VIAL 5000 UNIT SUBQ (05:01)
[2025-05-03] MEDS: OXYCODONE HCL 5 MG TABLET PO ×2 (05:04→08:59)
[2025-05-03 07:28] LABS: Alanine Aminotransferase 55 U/L (16-63); Albumin Globulin Ratio 1.0; Albumin Level 3.7 g/dL (3.4-5.0); Alkaline Phosphatase 109 U/L (46-116); Anion Gap 13.6; Aspartate Amino Transferase 31 U/L (15-37); Blood Urea Nitrogen 33.0 mg/dL (7.0-18.0); Calcium 9.2 mg/dL (8.5-10.1); Carbon Dioxide 28.2 mmol/L (21.0-32.0); Chloride 109 mmol/L (98-107); Estimated GFR (African America >60 (>=60 mL/min/1.73m^2); Estimated GFR (Non-African Ame >60 (>=60 mL/min/1.73m^2); Globulin 3.7 g/dL; Glucose 121 mg/dL (74-106); Potassium 4.8 mmol/L (3.5-5.1); Sodium 146 mmol/L (136-145); Total Protein 7.4 g/dL (6.4-8.2)
[2025-05-03 07:37] LABS: Hematocrit 47.2 % (42.0-54.0); Hemoglobin 15.3 g/dL (14.0-18.0); Immature Granulocytes Abs Auto 0.07 10^3/uL (0.00-0.03); Immature Granulocytes Pct Auto 0.8 % (0.0-0.5); Lymphocytes Absolute Auto 1.8 10^3/uL (1.2-3.8); Mean Corpuscular HGB Conc 32.4 g/dL (29.9-35.2); Mean Corpuscular Hemoglobin 30.4 pg (25.9-34.0); Mean Corpuscular Volume 93.7 fL (80.0-94.0); Platelet Count 340 10^3/uL (150-450); Red Blood Count 5.04 10^6/uL (4.70-6.10); White Blood Count 9.3 10^3/uL (4.0-11.0)
--- NOTE | 2025-05-03 08:54 | P.DS_ITS ---
DS: Providers Provider Date of admission: 05/01/25 16:16 Primary care physician: Non-Staff Physician, Consults: 05/01/25 16:14 Consult to Chief Clinical Officer Routine Reason for consult:: Drug Abuse DS: Diagnosis Discharge Diagnosis (1) Cannabinoid hyperemesis syndrome: (2) Acute kidney injury: (3) SIRS (systemic inflammatory response syndrome): (4) Dehydration: (5) Hypernatremia: (6) Elevated bilirubin: DS: Summary Hospital Course Hospital Course: Mr Servin is a 44-year-old gentleman who came in with nausea, vomiting and was found to have the following MACKENZIE secondary to severe dehydration and volume loss CAT scan of the abdomen does not show any obstructive uropathy. UA does not show any RBC or significant proteinuria to suggest nephritic or nephrotic syndrome. Resolved Dehydration with volume loss secondary to excessive vomiting Likely caused by marijuana hyperemesis syndrome CAT scan of the abdomen pelvis does not show an acute intra-abdominal process Resolved Hypernatremia with metabolic acidosis Likely secondary to above. Resolved SIRS present on admission Likely secondary to above. No clinical evidence of infection at this time. Blood cultures pending. UA is negative. CT abdomen pelvis no intra-abdominal infectious process. Patient does not have any respiratory symptoms Resolved Elevated bilirubin. I reviewed his record. Patient has a chronic elevation of the bilirubin. CAT scan showed hepatic steatitis. Requested viral hepatitis panel. This came back negative Otherwise at this care is broad differential diagnosis including but not limited to viral, autoimmune, infiltrative or neoplastic liver disease that would need to be addressed from the diagnostic and therapeutic standpoint. Could be co mpleted in the outpatient setting by PCP Resolved Marijuana use. The patient admitted that he uses marijuana excessively. Counseling and education were provided for patient to reduce marijuana use significantly or quit unless prescribed for medical reason Depression and other psychiatric illness, could be bipolar. Continue preadmission home medication including Prozac and Zyprexa. Stable, no decompensation Hypertension I started patient on amlodipine Stable, patient will be discharged on amlodipine Chronic medical conditions not listed above, incidental findings seen on labs and imaging. These would need to be addressed. Could be addressed when time and condition are appropriate. Could be addressed in the outpatient setting by PCP collaboration with other needed outpatient providers. Patient has multiple medical issues as listed above and others that are not listed. All appear to be stable. I do not have any clear or strong clinical justification to extend inpatient hospitalization. Patient however will require close and frequent monitoring as well as additional work-up, investigation and therapeutic intervention that could take place from this point on post discharge. That is to prevent relapse, decompensation, rehospitalization and other medical implications. I instructed patient to ask her primary care doctor to obtain [facility] record entirely to address abnormalities seen on labs and imaging that I have and have not addressed during this hospitalization, follow-up on pending blood work, imaging and pathology is if available and to follow-up on needed medical care in the outpatient setting. Time Spent with Patient Time attestation: Total time spent providing and/or coordinating discharge services: Time spent: greater than 30 minutes Exam Constitutional Vital Signs, click to edit/add: Last Vital Signs Temp 97.6 F 05/03/25 04:15 Pulse 77 05/03/25 04:15 Resp 18 05/03/25 04:15 BP 148/87 H 05/03/25 04:15 Pulse Ox 95 05/03/25 04:15 O2 Del Method Room Air 05/03/25 04:15 DS: Data Data Completed and Pending Labs on day of discharge: Labs from last 24 hours 05/03/25 05/02/25 07:05 09:37 WBC 9.3 RBC 5.04 Hgb 15.3 Hct 47.2 MCV 93.7 MCH 30.4 MCHC 32.4 RDW 12.9 Plt Count 340 MPV 10.5 Neut % (Auto) 65.8 Lymph % (Auto) 19.2 L [place] % (Auto) 11.4 Eos % (Auto) 2.4 Baso % (Auto) 0.4 Neut # (Auto) 6.1 Lymph # (Auto) 1.8 [place] # (Auto) 1.1 H Eos # (Auto) 0.2 Baso # (Auto) 0.0 Abs Immat Gran (auto) 0.07 H Imm/Tot Granulo (auto) 0.8 H Sodium 146 H Potassium 4.8 Chloride 109 H Carbon Dioxide 28.2 Anion Gap 13.6 BUN 33.0 H Creatinine 1.07 Est GFR ( Amer) >60 Est GFR (Non-Af Amer) >60 BUN/Creatinine Ratio 30.8 Glucose 121 H Calcium 9.2 Total Bilirubin 1.0 AST 31 ALT 55 Alkaline Phosphatase 109 Total Protein 7.4 Albumin 3.7 Globulin 3.7 Albumin/Globulin Ratio 1.0 Hepatitis A IgM Ab Negative Hep Bs Antigen Negative Hep B Core IgM Ab Negative Hepatitis C Antibody Non reactive Hepatitis C Interp Comment Discharge Plan Discharge Disposition: Home, Self-Care Condition: Fair Health Concerns: I may not have addressed or treated all of your medical illnesses or the abnormal blood work or imaging studies during this hospitalization. Please ask your primary care provider to obtain [facility] records entirely to follow up on all of the abnormal physical, laboratory, and imaging findings that I have not addressed. Please avoid excessive marijuana use Please return back to the emergency room or seek medical attention if your symptoms worsen or return. Discharging you from [facility] does not mean that your medical care ends here and now. You may still need additional monitoring, work up, investigation, and treatment plan to be handled from this point on by out patient providers including your primary care provider and specialists. For any medication question, please contact your retail pharmacist or your primary care provider. Thank you. Discharge Medications: New amlodipine 5 mg Tablet 5 mg PO QD Qty: 30 2RF Continued olanzapine 2.5 mg tablet 2.5 mg PO BEDTIME fluoxetine 60 mg tablet 60 mg PO QPM omeprazole 20 mg capsule,delayed release(DR/EC) 20 mg PO DAILY Print Language: Italian Forms: Portal Instructions Follow Up Appointments: May 05 @ 10:30am with Vanda Damon NP [address] [facility] [address], [address] [phone]
[2025-05-03] MEDS: AMLODIPINE BESYLATE 5 MG TABLET PO (08:59)
[2025-05-03] MEDS: PANTOPRAZOLE SODIUM 40 MG TABLET.DR PO (08:59)
[2025-05-03] MEDS: ACETAMINOPHEN 325 MG TABLET 650 MG PO (08:59)
[2025-05-03 09:07] VITALS: BP 175/115; PULSE 66; TEMP 36.7; O2SAT 98
[2025-05-03 11:45] VITALS: BP 145/93; PULSE 72
--- NOTE | 2025-05-04 11:23 | CM.DCFOLLOWU ---
1st attempt 05/04/25, no answer
--- NOTE | 2025-05-05 13:23 | CM.DCFOLLOWU ---
Person spoke with:patient How are you feeling?very well How is your pain?none Did you understand your discharge instructions?yes Do you have any questions about your discharge instructions?no Were you given any prescriptions at discharge?yes Were you able to get your prescriptions filled?yes Do you understand how to take your medications as ordered?yes Do you have any questions about your follow up appointment and do you plan to keep your follow up appointment?no questions, pt stated he followed up with [facility] Is there anything else that you would like to discuss?no Questions/Comments/Concerns/Other:none
== END 2025-05-03 12:01 | disposition home or self-care (01) | DRG 469 ==
LOC: ER 15:34 → MS 05-03 08:52
PROVIDERS: Admitting Provider Student in an Organized Health Care Education/Training Program; Emergency Provider Emergency Medicine; Visit Provider Internal Medicine
DX: N17.9 Acute kidney failure, unspecified (principal); R11.2 Nausea with vomiting, unspecified; E86.0 Dehydration; F12.988 Cannabis use, unspecified with other cannabis-induced disorder; I10 Essential (primary) hypertension; Z87.01 Personal history of pneumonia (recurrent); F41.9 Anxiety disorder, unspecified; Z79.899 Other long term (current) drug therapy; F17.290 Nicotine dependence, other tobacco product, uncomplicated; J43.9 Emphysema, unspecified; E87.0 Hyperosmolality and hypernatremia; E80.6 Other disorders of bilirubin metabolism; E87.20 Acidosis, unspecified; R65.10 Systemic inflammatory response syndrome (SIRS) of non-infectious origin without acute organ dysfunction; K76.0 Fatty (change of) liver, not elsewhere classified; F32.A Depression, unspecified
CPT/HCPCS: 36415; 51798; 74176; 80048; 80053; 80074; 80307; 81001; 81003; 82570; 84300; 85007; 85025; 85027; 87040; 93005; 96361; 96374; 96376; 99285; 99406; J1644; J2405

== ENCOUNTER 2025-06-15 16:40 | Emergency (ER) | payer OTHER, SELFPAY ==
--- OUTSIDE RECORDS SUMMARY | 2025-05-05 06:30 | XMS_ITS ---
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 * Medical History: Objective: * Vitals: Assessment: Plan: * Treatment: * * Electronic signature of Odette Hardin NP, WOOD AND HARDWARE [email or web address] on 06/15/2025 at 04:48 PM EDT Sign off status: Pending Visit Status: C ANCPHONE (Cancelled Phone) * Provider: Waleska PALACIO), STEEL CUTTER Date: 0 05/05/2025 Generated for Tyrone montana/Artemio/Mahin on: 0 06/15/2025 04:48 PM EDT
--- OUTSIDE RECORDS SUMMARY | 2025-06-08 10:30 | XMS_ITS | Encounter Summary ---
Author Organization [employer] [facility] Address [id number] [address] [place] [address] Care Team Providers Care Building Mover Name Role Phone Services, [facility] Primary Care Provider Reason for Referral * Cardiology (Routine) - Pending Review Specialty Diagnoses / Procedures Referred By Contac t Referred To Contact Diagnoses Abnormal EKG Procedures Echo complete W/O contrast Lidia Cleary MD [address] [place] [address] Phone: tel: fax: Referral ID Status Reason Start Date Expiration Date V isits Requested Visits Authorized [id number] Pending Review 06/08/2025 06/08/2026 1 1 Reason for Visit * Reason Comments New Patient [facility] CRISTINACOLETTE VALADEZ CARDIAC ENLARGEMENT, [facility] EKG, NO DEVICE, COVID 2023, SCHED W/PT * Consultation (Routine) - Pending Review Specialty Diagnoses / Procedures Referred By Contac t Referred To Contact Cardiology Diagnoses Cardiac enlargement Cristina Corley MD [address] [place] [address] Phone: tel: fax: [facility] [address] [place] [address] Phone: tel: fax: Referral ID Status Reason Start Date Expiration Date Visits Requested Visits Authorized [id number] Pending Review Specialty Services Required 05/06/2025 05/06/2026 1 1 Encounter Details Date Type Department Care Team (Late st Contact Info) Description 06/08/2025 10:30 AM EDT Office Visit [facility] [address] [place] [id number] Lidia Cleary MD [address] [place] [address] Abnormal EKG (Primary Dx); Cardiac enlargement; Elevated blood pressure reading Social History Tobacco Use Types Packs/Day Years Used Date Smoking Tobacco: Former Cigarettes 2 2013 Smokeless Tobacco: Former Chew Alcohol Use Standard Drinks/Week Comments Never 0 (1 standard drink = 0.6 oz pur e alcohol) Childcare Answer Date Recorded Childcare Unknown 02/03/2021 Employment Answer Date Recorded Employment Unknown 02/03/2021 Hunger Screening Answer Date Recorded Within the past 12 months we worried whether our food would run out before we got money to buy more. Never True 06/08/2025 Within the past 12 months th e food we bought just didn't last and we didn't have money to get more. Never True 06/08/2025 Purpose - Life Answer Date Recorded Purpose and direction in life Unknown Sex and Gender Information Value Date Recorded Sex Assigned at Not on file Legal Sex Male 11:52 AM EDT Gender Identity Not on file Sexual Orientation Not on file documented as of this encounter Last Filed Vital Signs Vital Sign Reading Time Taken Comments Blood Pressure 122/88 06/08/2025 10:19 AM EDT Pulse 87 06/08/2025 10:19 AM EDT Temperature - - Respiratory Rate - - Oxygen Saturation 95% 06/08/2025 10:19 AM EDT Inhaled Oxygen Concentration - - Weight 96.2 kg (212 lb) 06/08/2025 10:19 AM EDT Height 182.9 cm (6') 06/08/2025 10:19 AM EDT Body Mass Index 28.75 06/08/2025 10:19 AM EDT documented in this encounter Progress Notes * Ldiia Cleary MD - 06/08/2025 10:30 AM EDT Jitendra Paul Servin Date of visit: 06/08/2025 Date of : 1980 Age: 44 y.o. Patient Active Problem List Diagnosis Bipolar disorder, unspecified ([facility]) No Known Allergies Current Outpatient Medications Medication Sig Dispense Refill dicyclomine (BENTYL) 20 mg tablet Take 1 tablet (20 mg total) by mouth 3 (three) times a day as needed. FLUoxetine (PROzac) 60 MG tablet Take 1 tablet (60 mg total) by mouth before bedtime. OLANZapine (ZyPREXA) 2.5 mg tablet Take 1 tablet (2.5 mg total) by mouth nightly. omeprazole (PriLOSEC) 20 mg capsule Take 1 capsule (20 mg total) by mouth daily as needed. ondansetron ODT (ZOFRAN ODT) 4 mg disintegrating tablet Dissolve 1 tablet (4 mg total) on tongue every 8 (eight) hours as needed for nausea or vomiting. No current facility-administered medications for this visit. Chief Complaint Patient presents with New Patient [facility] CRISTINA CORLEY CARDIAC ENLARGEMENT, [facility] EKG, NO DEVICE, COVID 2023, SCHED W/PT History of Present Illness 44-year-old male is here for initial evaluation with report of enlarged heart. He is not sure why he was referred to me. He was recently admitted to [facility] for cannabinoid hyperemesis syndrome severe dehydration with MACKENZIE. Did have a CT abdomen a chest x-ray with report of cardiomegaly He denies any cardiac symptoms no chest pain shortness of breath palpitations lower extremity edemasyncope or presyncope He started smoking at the age of [age] years old total of 30 years of smoking he did smoke 1-2 packs aday until 10 years ago than his switch to vaping both tobacco and marijuana His EKG demonstrated normal sinus rhythm and incomplete right bundle block branch His blood pressure is elevated denies diagnosis of essential hypertension Past Medical History: Diagnosis Date Bipolar disorder, unspecified ([facility]) No data recorded No data recorded No data recorded History reviewed. No pertinent surgical history. History reviewed. No pertinent family history. Social History Socioeconomic History Marital status: Spouse name: Pat Number of children: 4 Years of education: Not on file Highest education level: Not on file Occupational History Not on file Tobacco Use Smoking status: Former Current packs/day: 0.00 Average packs/day: 2.0 packs/day for 19.0 years (38.0 ttl pk-yrs) Types: Cigarettes Start date: 1994 Quit date: 2013 Years since quittin.6 Smokeless tobacco: Former Types: Chew Vaping Use Vaping status: Every Day Start date: 04/27/2014 Substances: Nicotine, THC, CBD, Flavoring Devices: Disposable Substance and Sexual Activity Alcohol use: Never Drug use: Yes Frequency: 20.0 times per week Types: Marijuana Comment: 3-4 times daily Sexual activity: Not on file Other Topics Concern Caffeine Use Yes Social History Narrative Not on file Social Drivers of Health Financial Resource Strain: Not on file Food Insecurity: No Food Insecurity (06/08/2025) Hunger Screening Food Insecurity - Worry: Never True Food Insecurity - Inability: Never True Transportation Needs: Not on file Physical Activity: Not on file Stress: Not on file Social Connections: Not on file Interpersonal Safety: Not on file Housing Instability: Not on file Review of Systems Review of Systems Constitutional: Negative. HENT: Negative. Eyes: Negative. Cardiovascular: Negative. Respiratory: Negative. Endocrine: Negative. Hematologic/Lymphatic: Negative. Skin: Negative. Musculoskeletal: Negative. Gastrointestinal: Negative. Genitourinary: Negative. Neurological: Negative. Psychiatric/Behavioral: Negative. Allergic/Immunologic: Negative. Vascular: Negative. CARDIOVASCULAR: Please review HPI. Physical Examination General appearance: Alert, oriented and cooperative. In no acute distress. Skin: Warm and dry to touch. Head: Normocephalic, without obvious abnormality, atraumatic. Ears, Nose, Mouth, Throat: Throat clear without erythema or exudate. Dentition intact. Eyes: Conjunctivae unremarkable, EOM intact. Neck: No JVD, No carotid bruit. Neck supple, trachea midline. Respiratory: Clear to auscultation bilaterally, no use of accessory muscles. Cardiovascular: RRR with normal S1 and S2 with no murmurs. Gastrointestinal: Soft, non-tender. Bowel sounds normal. Musculoskeletal: No peripheral edema. Neurologic: Oriented to time, person and place, affect appropriate. No focal/major motor defects noted. Psychiatric: Appropriate mood, memory and judgement. VITAL SIGNS: BP 122/88 Pulse 87 Ht 182.9 cm (6') Wt 96.2 kg (212 lb) SpO2 95% BMI 28.75 kg/m?? Orders Placed or Reconciled This Encounter Medications ondansetron ODT (ZOFRAN ODT) 4 mg disintegrating tablet Sig: Dissolve 1 tablet (4 mg total) on tongue every 8 (eight) hours as needed for nausea or vomiting. There are no discontinued medications. IMPRESSIONS/PLAN 1. Cardiac enlargement - Ambulatory referral to Cardiology (Non[facility]) Cardiomegaly on chest x-ray Abnormal EKG normal sinus rhythm with a incomplete right bundle block branch and right axis deviation Extensive tobacco and marijuana use history Elevated blood pressure reading without diagnosis of hypertension although mentioned on his chart Echocardiogram for structural evaluation Instructed to check his blood pressure logs at home if elevated or evidence of LVH on echo I will start an antihypertensive Smoking and marijuana use cessation counseling provided He is very active with excellent functional capacity without any anginal symptoms otherwise - LIDIA CLEARY MD 06/08/25 10:54 AM ] TODAYS ORDERS No orders of the defined types were placed in this encounter. FOLLOW UP No follow-ups on file. PCP: NUBIA Díaz Referring Physician: Cristina Corley MD [address] [place] [address] documented in this encounter Plan of Treatment Upcoming Encounters Date Type Department Care Team (Late st Contact Info) Description 07/05/2025 8:00 PM EDT Clinical Support [facility] - [facility] Disorders [address] [place] [address] 11/02/2025 9:45 AM EST Office Visit [facility] Pul[facility]Sleep Medicine [address] [place] [address] Yasmin Wood, WOOL HAT FORMING MACHINE TENDER-[address], [address] [place], [place] [id number] Scheduled Orders Name Type Priority Associated Diagnoses Orde r Schedule Echo complete W/O contrast Echocardiography Routine Abnormal EKG Expected: 06/08/2025, Expires: 06/08/2026 documented as of this encounter Visit Diagnoses Diagnosis Abnormal EKG- Primary Nonspecific abnormal electrocardiogram (ECG) (EKG) Cardiac enlargement Cardiomegaly Elevated blood pressure reading Elevated blood pressure reading without diagnosis of hypertension documented in this encounter Care Teams Building Mover Relationship Specialty Start Date End Date Services, [facility] [address] [facility] [place] [place] PCP - General Family Medicine 04/27/25 documented as of this encounter
--- OUTSIDE RECORDS SUMMARY | 2025-06-15 16:48 | XMS_ITS | Encounter Summary ---
Author Organization [facility] [employer] [facility] tem Address [facility]-[id number] [address] [place] [address] Care Team Providers Care Web Project Manager Name Role Phone Services, [facility] Primary Care Provider Encounter Details Date Type Department Care Team (Late Contact Info) Description 06/02/2025 Orders Only [facility] [address] [place] [address] External, Scanning Provider Social History Tobacco Use Types Packs/Day Years Used Date Smoking Tobacco: Former Cigarettes 2 2013 Smokeless Tobacco: Former Chew Alcohol Use Standard Drinks/Week Comments Never 0 (1 standard drink = 0.6 oz pur e alcohol) Childcare Answer Date Recorded Childcare Unknown 02/03/2021 Employment Answer Date Recorded Employment Unknown 02/03/2021 Purpose - Life Answer Date Recorded Purpose and direction in life Unknown Sex and Gender Information Value Date Recorded Sex Assigned at Not on file Legal Sex Male 11:52 AM EDT Gender Identity Not on file Sexual Orientation Not on file documented as of this encounter Plan of Treatment Upcoming Encounters Date Type Department Care Team (Late Contact Info) Description 07/05/2025 8:00 PM EDT Clinical Support [facility] - Sleep Disorders [address] [place] [phone] 11/02/2025 9:45 AM EST [facility] [address] [place] [phone] Yasmin Wood, LOOPER OPERATOR-SUPERINTENDENT OPERATIONS DIVISION [address], [address] [place] [address] documented as of this encounter Procedures Procedure Name Priority Date/Time Associated Diagnosis Comments MULTIPLE LABS Routine 05/03/2025 8:[address] ABDOMEN AND PELVIS WO CONT Routine 05/01/2025 8:41 AM EDT ECG 12-LEAD Routine 05/01/2025 8:36 AM EDT MULTIPLE LABS Routine 02/09/2025 8:37 AM EDT LIPID PROFILE Routine 02/09/2025 documented in this encounter Results * Multiple labs (05/03/2025 8:43 AM EDT) us Scanning Provider External [place] IMAG[facility] Final Result Performing Organization Address [facility] Phone Number MANUALLY TRANSCRIBED RESULTS * CT abdomen and pelvis without contrast (05/01/2025 8:41 AM EDT) Anatomical Region Laterality Modality Body, Abdomen, Body Covera N/A Compu chetan Tomography us Scanning Provider External IMG CT ORDERABLES Fin al Result * ECG 12 lead (05/01/2025 8:36 AM EDT) us Scanning Provider External ECG ORDERABLES Final Result Performing Organization Address [facility] Phone Number MANUALLY TRANSCRIBED RESULTS * Multiple labs (02/09/2025 8:37 AM EDT) us Scanning Provider External [place] [facility] Final Result Performing Organization Address [facility] de Phone Number MANUALLY TRANSCRIBED RESULTS * Lipid profile (02/09/2025) External Cholesterol 209 MANUALLY TRANSCRIBED RESULTS External Cholesterol:Hdl 3.1 MANUALLY TRANSCRIBED RESULTS External Hdl Cholesterol 67 MANUALLY TRANSCRIBED RESULTS External Ldl (Calc) 122 MANUALLY TRANSCRIBED RESULTS Ldl/Hdl Ratio 1.8 MANUAL LY TRANSCRIBED RESULTS Vldl,Cholesterol 20 MAN UALLY TRANSCRIBED RESULTS Blood Venous blood / Unknown us Scanning Provider External LAB BLOOD ORDERABLES Edited Result - Final MANUALLY TRANSCRIBED RESULTS documented in this encounter Visit Diagnoses Not on filedocumented in this encounter Care Teams Web Project Manager Relationship Specialty Start Date End Date Services, [facility] [address] [place], [place] PCP - General Family Medicine 04/27/25 documented as of this encounter
--- OUTSIDE RECORDS SUMMARY | 2025-06-15 16:48 | XMS_ITS | Encounter Summary ---
Author Organization [facility] [employer] [facility] tem Address [id number] [address] [place] [address] Care Team Providers Care Cathode Maker Name Role Phone Services, [facility] Primary Care Provider Encounter Details Date Type Department Care Team (Latest Contact Info) Description 06/08/2025 Travel Social History Tobacco Use Types Packs/Day Years [...] Description 07/05/2025 8:00 PM EDT Clinical Support [facility] - Sleep Disorders [address] [place] [address] 11/02/2025 9:45 AM EST Office Visit [facility] Physicians Pulmonary/Sleep Medicine [address] [place] [phone] Yasmin Wood, ENDING MACHINE OPERATOR-OPERATIONS INTELLIGENCE [address], [address] [place] [address] documented as of this encounter Visit Diagnoses Not on filedocumented in this encounter Care Teams Cathode Maker Relationship Specialty Start Date End Date Services, [facility] [address] [place], [place] PCP - General Family Medicine 04/27/25 documented as of this encounter
--- OUTSIDE RECORDS SUMMARY | 2025-06-15 16:48 | XMS_ITS | Encounter Summary ---
Author Organization [facility] Address [address] [place] [address] Care Team Providers Care Relief Captain Name Role Phone Unavailable Primary Care Provider Unavailabl e Encounter Details Date Type Department Care Team (Late st Contact Info) Description 02/06/2024 Orders Only [facility] [address] [place] [address] Wale Strauss MD [address] [place] [phone] Social History Tobacco Use Types Packs/Day Years Used Date Smoking Tobacco: Never Assessed Sex and Gender Information Value Date Recorded Sex Assigned at Not on file Legal Sex Male 3:56 PM EDT Gender Identity Not on file Sexual Orientation Not on file documented as of this encounter Plan of Treatment Not on file documented as of this encounter Visit Diagnoses Not on filedocumented in this encounter
--- OUTSIDE RECORDS SUMMARY | 2025-06-15 16:48 | XMS_ITS | Clinical Summary ---
Author Organization [employer] [facility] tem Address [facility] [place] [place]-[id number] [address] [place] [address] Care Team Providers Care Biomedical Service Engineer Name Role Phone Services, [facility] Primary Care Provider Allergies No known active allergies Medications dicyclomine (BENTYL) 20 mg tablet Take 1 tablet (20 mg total) by mouth 3 (three) times a day as needed. 5 Active FLUoxetine (PROzac) 60 MG tablet Take 1 tablet (60 mg total) by mouth before bedtime. 5 Active OLANZapine (ZyPREXA) 2.5 mg tablet Take 1 tablet (2.5 mg total) by mouth nightly. 5 Active omeprazole (PriLOSEC) 20 mg capsule Take 1 capsule (20 mg total) by mouth daily as needed. 5 Active ondansetron ODT (ZOFRAN ODT) 4 mg disintegrating tablet Dissolve 1 tablet (4 mg total) on tongue every 8 (eight) hours as needed for nausea or vomiting. Active Active Problems Problem Noted Date Diagnosed Date Bipolar disorder, unspecified Encounters Date Type Department Care Team Description 06/08/2025 10:30 AM EDT Office Visit [facility] [address] [place] [address] Lidia Cleary MD Abnormal EKG (Primary Dx); Cardiac enlargement; Elevated blood pressure reading 06/08/2025 Travel 06/07/2025 Telephone [facility] [address] [place] [address] Ignacia Ocasio [facility] 06/02/2025 Orders Only [facility] [address] [place] [address] External, Scanning Provider 05/06/2025 Telephone [facility] [address] [place] [phone] Lorenza Andres, [facility] 04/28/2025 Telephone [facility] Division of [facility] - Sleep Disorders [address] [place] [phone] Transcribe, Orders Support [facility] (PSG Order) 04/27/2025 11:00 AM EDT Office Visit [facility] [address] [place] [place] [address] Yasmin Wood, CULTURAL HISTORIAN-PLASTIC HOSPITAL PRODUCTS ASSEMBLER Fatigue, unspecified type (Primary Dx); Sleep apnea, unspecified type; Snoring; BMI 28.0-28.9,adult; Overweight with body mass index (BMI) of 28 to 28.9 in adult; Marijuana use 04/27/2025 Orders Only INTERFACE-ONLY Nannette Mackey APRN-PRECISION GRINDER EXTERNAL 04/27/2025 Orders Only INTERFACE-ONLY Nannette Mackey, CULTURAL HISTORIAN-PRECISION GRINDER EXTERNAL 04/27/2025 Orders Only INTERFACE-ONLY Nannette Mackey APRN-PRECISION GRINDER EXTERNAL 04/27/2025 Orders Only INTERFACE-ONLY Nannette Mackey CULTURAL HISTORIAN-PRECISION GRINDER EXTERNAL 04/27/2025 Orders Only INTERFACE-ONLY Nannette Mackey CULTURAL HISTORIAN-PRECISION GRINDER EXTERNAL 04/27/2025 Orders Only INTERFACE-ONLY Nannette Mackey, CULTURAL HISTORIAN-PRECISION GRINDER EXTERNAL 04/27/2025 Travel from Last 3 Months Social History Tobacco Use Types Packs/Day Years Used Date Smoking Tobacco: Former Cigarettes 2 19 1 - 2013 Smokeless Tobacco: Former Chew Tobacco Cessation:Counseling Given: Not Answered Alcohol Use Standard Drinks/Week Comments Never 0 [...] on file Sexual Orientation Not on file Last Filed Vital Signs Vital Sign Reading Time Taken Comments Blood Pressure 122/88 06/08/2025 10:19 AM EDT Pulse 87 06/08/2025 10:19 AM EDT Temperature 37.1 C (98.7 F) 02/03/2021 9:41 AM EDT Respiratory Rate 23 02/03/2021 12:40 PM EDT Oxygen Saturation 95% 06/08/2025 10:19 AM EDT Inhaled Oxygen Concentration - - Weight 96.2 kg (212 lb) 06/08/2025 10:19 AM EDT Height 182.9 cm (6') 06/08/2025 10:19 AM EDT Body Mass Index 28.75 06/08/2025 10:19 AM EDT Plan of Treatment Upcoming Encounters Date Type Department Care Team (Late st Contact Info) Description 07/05/2025 8:00 PM EDT Clinical Support [facility] - Sleep Disorders [address] [address] [facility] [place] [address] 11/02/2025 9:45 AM EST Office Visit [facility] Pulmonary/Sleep Medicine [address] [place] [phone] Yasmin Wood, CULTURAL HISTORIAN-PLASTIC HOSPITAL PRODUCTS ASSEMBLER [address], [address] [place] [address] Health Maintenance Due Date Last Done Comments Depression Screening 1990 Adult BMI Follow Up Plan 1996 COVID-19 Vaccine ( season) 2024, 03/20/2021 Influenza Vaccine 06/27/2025 11/11/2023 Adult BMI Screening 04/27/2026 06/08/2025 Tobacco Screening 04/27/2026 06/08/2025 DTaP,Tdap and Td Vaccines (2 - Td or Tdap) 11/11/2033 11/11/2023 Medical Devices Not on file Procedures Procedure Name Priority Date/Time Associated Diagnosis Comments MULTIPLE LABS Routine 05/03/2025 8:[address] ABDOMEN AND PELVIS WO CONT Routine 05/01/2025 8:41 AM EDT ECG 12-LEAD Routine 05/01/2025 8:36 AM EDT from Last 3 Months Results * Multiple labs (05/03/2025 8:43 AM EDT) us Scanning Provider External [place] IMAGING Final Result Performing Organization Address [facility] de Phone Number MANUALLY TRANSCRIBED RESULTS * CT abdomen and pelvis without contrast (05/01/2025 8:41 AM EDT) Anatomical Region Laterality Modality Body, Abdomen, Body Covera N/A Compu chetan Tomography us Scanning Provider External IMG CT ORDERABLES Fin al Result * ECG 12 lead (05/01/2025 8:36 AM EDT) us Scanning Provider External ECG ORDERABLES Final Result Performing Organization Address [facility] de Phone Number MANUALLY TRANSCRIBED RESULTS from Last 3 Months Insurance [employer] Care Teams Biomedical Service Engineer Relationship Specialty Start Date End Date Services, [facility] [address] [place], [place] PCP - General Family Medicine 04/27/25
--- OUTSIDE RECORDS SUMMARY | 2025-06-15 16:48 | XMS_ITS | Clinical Summary ---
Author Organization [facility] Address [address] [place] [address] Care Team Providers Care Mechanical Press Operator Name Role Phone Unavailable Primary Care Provider Unavailabl e Social History Tobacco Use Types Packs/Day Years Used Date Smoking Tobacco: Never Assessed Sex and Gender Information Value Date Recorded Sex Assigned at Not on file Legal Sex Male 3:56 PM EDT Gender Identity Not on file Sexual Orientation Not on file Plan of Treatment Not on file Insurance [employer]
--- OUTSIDE RECORDS SUMMARY | 2025-06-15 16:48 | XMS_ITS | Encounter Summary ---
Author Organization [employer] Address [facility]-[id number] [address] [place] [address] Care Team Providers Care Formulation Chemist Name Role Phone Services, [facility] Primary Care Provider Encounter Details Date Type Department Care Team (Late st Contact Info) Description 06/07/2025 Telephone [facility] [address] [place] [address] Ignacia Ocasio CMA Social History Tobacco Use Types Packs/Day Years [...] on file documented as of this encounter Miscellaneous Notes * Telephone Encounter - Ignacia Ocasio CMA - 06/07/2025 3:25 PM EDT Called patient to remind them to bring their most current copy of their medication list with them to their appt. Patient verbalizes understanding. documented in this encounter Plan of Treatment Upcoming Encounters Date Type Department Care Team (Late st Contact Info) Description 07/05/2025 8:00 PM EDT Clinical Support [facility] - Sleep Disorders [address] [facility] [facility] [address] [facility] [place] [address] 11/02/2025 9:45 AM EST Office Visit [facility] Physicians Pulmonary/Sleep Medicine [address] [place] [address] Yasmin Wood, HUMAN RESOURCES CONSULTANT-WHEELCHAIR VAN OPERATOR FIRST RESPONDER [address], [address] [place] [address] documented as of this encounter Visit Diagnoses Not on filedocumented in this encounter Care Teams Formulation Chemist Relationship Specialty Start Date End Date Services, [facility] [address] [place], [place] PCP - General Family Medicine 04/27/25 documented as of this encounter
[2025-06-15 16:53] VITALS: BP 153/112; PULSE 97; TEMP 37.2; O2SAT 97; BMI 28.8
--- OUTSIDE RECORDS SUMMARY | 2025-06-15 17:06 | XMS_ITS | CCD ---
Author Organization [facility] Care Team Providers Care All Round Logger Name Role Phone RANJANA TRAYLOR Primary Care Physician Anupam POOLE Attending Unavailable NILL, Anupam Bob Attending Unavailable [...] NILL ., DR BO Admitting Unavailable NITIN, FANAT SUNG Consulting Unavaila ble GEMBUS, ASHIA Consulting [...] Unavailable NILL ., DR BO Attending Unavailable NADJUANR, DR RANJANA Samaniego Primary Care Unavailable No Pcp, No Pcp [facility] YASMIN WOOD Attending Unavailable NANNETTE PEREZ Referring Unavailable SERVICES, [facility] Unava ilable LIDIA TEIXEIRA Attending Unavailable ZEUS BUCK Referring Unavailable SERVICES, [facility] Unava ilable Allergies Allergy Classification Reported Allergen(s) Allergy Type Date of Onset Reaction(s) Facility (1 source) No Known Medication Allergies; Translations: [No Known Medication Allergies] Propensity to adverse reactions (disorder) [facility] Repository Medications Current Medications Medication Drug Class(es) Dates Sig (Normalized) Sig (Original) dicyclomine hydrochloride 20 mg oral tablet (5 sources) Anticholinergic Start: 01-26-2025 take 1 tablet by mouth three times daily as needed dicyclomine (BENTYL) 20 mg tablet Take 1 tablet (20 mg total) by mouth 3 (three) times a day as needed. 01/26/2025 Active FLUoxetine 60 mg oral tablet (5 sources) Serotonin Reuptake Inhibitor Start: 02-10-2025 take 1 tablet by mouth at bedtime FLUoxetine (PROzac) 60 MG tablet Take 1 tablet (60 mg total) by mouth before bedtime. 02/10/2025 Active OLANZapine 2.5 mg oral tablet (5 sources) Atypical Antipsychotic Start: 03-29-2025 take 1 tablet by mouth once daily OLANZapine (ZyPREXA) 2.5 mg tablet Take 1 tablet (2.5 mg total) by mouth nightly. 03/29/2025 Active omeprazole 20 mg delayed release oral capsule (7 sources) Proton Pump Inhibitor Start: 01-26-2025 take 1 capsule by mouth once daily as needed omeprazole (PriLOSEC) 20 mg capsule Take 1 capsule (20 mg total) by mouth daily as needed. 01/26/2025 Active Start: 07-02-2022 take 1 tablet by santos th once daily Prilosec OTC = 1 tab(s), Oral, Daily, Refills(s) 0 Start Date: 07/02/22 Status: Ordered ondansetron 4 mg disintegrating oral tablet (1 source) Serotonin-3 Receptor Antagonist take 1 tablet by mouth every eight hours as needed for nausea and vomiting ondansetron ODT (ZOFRAN ODT) 4 mg disintegrating tablet Dissolve 1 tablet (4 mg total) on tongue every 8 (eight) hours as needed for nausea or vomiting. Active Completed/Discontinued Medications Medication Drug Class(es) Dates Sig [...] fatigue] Onset: 5 04-27-2025 Episodic Mood disorders (11 sources) Bipolar disorder; Translations: [Bipolar disorder, unspecified] 04-27-2025 Chronic Nausea and vomiting (9 sources) Nausea and vomiting; Translations: [Nausea with vomiting, unspecified] Onset: 2 Episodic Other and ill-defined heart disease (1 source) Cardiomegaly; Translations: [Cardiomegaly] 06-08-2025 Chronic Other and ill-defined heart disease (1 source) Cardiomegaly; Translations: [Cardiomegaly] Onset: 5 Chronic Other circulatory disease (1 source) Elevated blood pressure; Translations: [Elevated blood-pressure reading, without diagnosis of hypertension] 06-08-2025 Episodic Other circulatory disease (1 source) Elevated blood-pressure reading, without diagnosis of hypertension; Translations: [Elevated blood-pressure reading, without diagnosis of hypertension] Onset: 5 Episodic Other congenital anomalies (2 sources) Duplication [...] conditions (not mental disorders or infectious disease) (6 sources) Encounter for screening for cardiovascular disorders; [...] W/AND (SUSP) EXPOS COVID-19] Onset: 3 Unclassified (2 sources) New Patient Onset: 5 Past or Other [...] 01-30-2023 HCV AB Non-Reactive Normal Non Reactive [facility] Comment on above: Performed By: #### L ACT #### [facility] [address] [place] [address] Dr. Etienne Fitch Interpretation: Comment Normal [facility] Comment on above: Result Comment: Not infected with HCV unless early or acute infection is suspected (which may be delayed in an immunocompromised individual), or other evidence exists to indicate HCV infection. Performed By: #### L ACT #### [facility] [address] [place] [address] Dr. Etienne Fitch HIV 1 AND 2 WITH REFLEXon HIV Screen 4th Generation wRfx Non-Reactive Normal Non Reactive [facility] Comment on above: Result Comment: HIV Negative HIV-1/HIV-2 antibodies and HIV-1 p24 antigen were NOT detected. There is no laboratory evidence of HIV infection. Performed By: #### H IV12 #### [facility] [address] [place] [address] Dr. Etienne Fitch LIPID PROFILEon 01-29-2023 CHOL-HDL RATIO NORM SEE BELOW Normal [facility] Comment on above: Result Comment: 3.3 - 4.4 LOW RISK 4.4 - 7.1 AVERAGE RISK 7.1 - 11.0 MODERATE RISK >11.0 HIGH RISK Performed By: #### U MICRO, ERUR #### [facility] [address] [place] [address] Dr. Etienne Fitch Cholesterol [Mass/Vol] 196 mg/dL Normal <=200 [facility] Comment on above: Performed By: #### U MICRO, ERUR #### [facility] [address] [place] [address] Dr. Etienne Fitch Cholesterol in HDL [Mass/Vol] 78 mg/dL Critically high 40-60 [facility] Comment on above: Performed By: #### U MICRO, ERUR #### [facility] [address] [place] [address] Dr. Etienne Fitch Cholesterol in LDL [Mass/Vol] 106.6 mg/dL Normal [facility] Comment on above: Performed By: #### U MICRO, ERUR #### [facility] [address] [place] [address] Dr. Etienne Fitch Cholesterol.total /Cholesterol in HDL [Mass ratio] 2.5 {ratio} Normal [facility] Comment on above: Performed By: #### U MICRO, ERUR #### [facility] [address] [address] [address] Etienne Fitch HDL NORMAL > or = 60 mg/dl - LO W CARDIOVASCULAR RISK <40 mg/dl - HIGH CARDIOVASCULAR RISK Normal [facility] Comment on above: Performed By: #### U MICRO, ERUR #### [facility] [address] [place] [address] Dr. Etienne Fitch LDL CALC NORMAL SEE BELOW Normal [facility] Comment on above: Result Comment: <100 mg/dl OPTIMAL 100 - 129 mg/dl NEAR OR ABOVE OPTIMAL 130 - 159 mg/dl BORDERLINE HIGH 160 - 189 mg/dl HIGH >190 mg/dl VERY HIGH Performed By: #### U MICRO, ERUR #### [facility] [address] [place] [address] Dr. Etienne Fitch Triglyceride [Mass/Vol] 57 mg/dL Normal <=150 [facility] Comment on above: Performed By: #### U MICRO, ERUR #### [facility] [address] [address] [address] Etienne Fitch VLDL CALC 11.4 mg/dL Normal [facility] Comment on above: Performed By: #### U MICRO, ERUR #### [facility] [address] [place] [address] Dr. Etienne Fitch PROF CHEM 8 (BAS METB)on Anion gap [Moles/Vol] 7.4 mmol/L Normal [facility] Comment on above: Performed By: #### U MICRO, ERUR #### [facility] [address] [address] [address] Etienne Fitch Calcium [Mass/Vol] 10.0 mg/dL Normal 8.5-10.1 [facility] Comment on above: Performed By: #### U MICRO, ERUR #### [facility] [address] [place] [address] Dr. Etienne Fitch Chloride [Moles/Vol] 101 mmol/L Normal 98-107 [facility] Comment on above: Performed By: #### U MICRO, ERUR #### [facility] [address] [place] [address] Dr. Etienne Fitch CO2 [Moles/Vol] 34.0 mmol/L Critically high 21.0-32.0 [facility] Comment on above: Performed By: #### U MICRO, ERUR #### [facility] [address] [address] [address] Etienne Fitch Creatinine [Mass/Vol] 1.27 mg/dL Normal 0.70-1.30 [facility] Comment on above: Performed By: #### U MICRO, ERUR #### [facility] [address] [address] [address] Etienne Fitch EGFR-AF [place] >60 Normal >=60 [facility] Comment on above: Performed By: #### U MICRO, ERUR #### [facility] [address] [place] [address] Dr. Etienne Fitch EGFR-NON AF [place] >60 Normal >=60 [facility] Comment on above: Performed By: #### U MICRO, ERUR #### [facility] [address] [address] [address] Etienne Fitch Glucose [Mass/Vol] 116 mg/dL Critically high 74-106 [facility] Comment on above: Performed By: #### U MICRO, ERUR #### [facility] [address] [address] [address] Etienne Fitch Potassium [Moles/Vol] 4.4 mmol/L Normal 3.5-5.1 [facility] Comment on above: Performed By: #### U MICRO, ERUR #### [facility] [address] [address] [address] Etienne Fitch Sodium [Moles/Vol] 138 mmol/L Normal 136-145 [facility] Comment on above: Performed By: #### U MICRO, ERUR #### [facility] [address] [address] [address] Etienne Fitch Urea nitrogen [Mass/Vol] 33.0 mg/dL Critically high 7.0-18.0 [facility] Comment on above: Performed By: #### U MICRO, ERUR #### [facility] [address] [address] [address] Etienne Fitch Urea nitrogen/Creatini ne [Mass ratio] 26.0 mg/mg Normal [facility] Comment on above: Performed By: #### U MICRO, ERUR #### [facility] [address] [address] [address] Etienne Fitch CBC AUTO DIFFon 12-12-2022 BASO # 0.0 103/ul Normal 0.0-0.1 [facility] Comment on above: Performed By: #### C BC #### [facility] [address] [address] [address] Etienne Fitch Basophils/100 WBC (Bld) 0.2 % Normal 0.2-2.0 [facility] Comment on above: Performed By: #### C BC #### [facility] [address] [place] [address] Dr. Etienne Fitch EO # 0.0 103/ul Normal 0.0-0.7 [facility] Comment on above: Performed By: #### C BC #### [facility] [address] [place] [address] Dr. Etienne Fitch Eosinophils/100 WBC (Bld) 0.1 % Critically low 0.9-7.0 [facility] Comment on above: Performed By: #### C BC #### [facility] [address] [place] [address] Dr. Etienne Fitch Erythrocyte distribution width (RBC) [Ratio] 12.8 % Normal 11.0-15.0 [facility] Comment on above: Performed By: #### C BC #### [facility] [address] [place] [address] Dr. Etienne Fitch Hematocrit (Bld) [Volume fraction] 55.0 % Critically high 42.0-54.0 [facility] Comment on above: Performed By: #### C BC #### [facility] [address] [place] [address] Dr. Etienne Fithc Hemoglobin (Bld) [Mass/Vol] 18.5 g/dL Critically high 14.0-18.0 [facility] Comment on above: Performed By: #### C BC #### [facility] [address] [place] [address] Dr. Etienne Fitch IG # 0.07 10e3/ul Critically high 0.00-0.03 [facility] Comment on above: Performed By: #### C BC #### [facility] [address] [place] [address] Dr. Etienne Fitch IG % 0.5 % Normal 0.0-0.5 [facility] Comment on above: Performed By: #### C BC #### [facility] [address] [place] [address] Dr. Etienne Fitch LYMPH # 1.4 103/ul Normal 1.2-3.8 [facility] Comment on above: Performed By: #### C BC #### [facility] [address] [place] [address] Dr. Etienne Fitch Lymphocytes/100 WBC (Bld) 10.1 % Critically low 20.5-60.0 [facility] Comment on above: Performed By: #### C BC #### [facility] [address] [place] [address] Dr. Etienne Fitch MANUAL DIFF REQ NO Normal [facility] Comment on above: Performed By: #### C BC #### [facility] [address] [place] [address] Dr. Etienne Fitch MCH (RBC) [Entitic mass] 29.6 pg Normal 25.9-34.0 [facility] Comment on above: Performed By: #### C BC #### [facility] [address] [place] [address] Dr. Etienne Fitch MCHC (RBC) [Mass/Vol] 33.6 g/dL Normal 29.9-35.2 [facility] Comment on above: Performed By: #### C BC #### [facility] [address] [place] [address] Dr. Etienne Fitch MCV (RBC) [Entitic vol] 87.9 fL Normal 80.0-94.0 [facility] Comment on above: Performed By: #### C BC #### [facility] [address] [place], [place] [id number] Dr. Etienne Fitch MONO # 1.5 103/ul Critically high 0.3-0.8 [facility] Comment on above: Performed By: #### C BC #### [facility] [address] [place] [address] Dr. Etienne Fitch Monocytes/100 WBC (Bld) 11.3 % Normal 1.7-12.0 [facility] Comment on above: Performed By: #### C BC #### [facility] [address] [place] [address] Dr. Etienne Fitch NEUT # 10.6 103/ul Critically high 1.4-6.5 [facility] Comment on above: Performed By: #### C BC #### [facility] [address] [place] [address] Dr. Etienne Fitch Neutrophils/100 WBC (Bld) 77.8 % Critically high 43.0-75.0 [facility] Comment on above: Performed By: #### C BC #### [facility] [address] [place] [address] Dr. Etienne Fitch Platelet mean volume (Bld) [Entitic vol] 11.1 fL Normal 9.5-13.5 [facility] Comment on above: Performed By: #### C BC #### [facility] [address] [place] [address] Dr. Etienne Fitch PLT 371 103/ul Normal 150-450 [facility] Comment on above: Performed By: #### C BC #### [facility] [address] [place] [address] Dr. Etienne Fitch RBC 6.26 106/ul Critically high 4.70-6.10 [facility] Comment on above: Performed By: #### C BC #### [facility] [address] [place] [address] Dr. Etienne Fitch WBC 13.6 103/ul Critically high 4.0-11.0 [facility] Comment on above: Performed By: #### C BC #### [facility] [address] [place] [address] Dr. Etienne Fitch Covid-19 PCR (CVDTBH)on 11-27 SARS-CoV-2 (COVID-19) RNA KWABENA+probe Ql (Unsp spec) Not detected Normal NOT DETECTED [facility] Comment on above: Result Comment: When [...] for this test is supported by the [place] of Health and Human Service's declaration that [...] Performed By: #### U MICRO, ERUR #### [facility] [address] [place] [address] Dr. Etienne Fitch ER URINE PROFILEon 3 Bilirubin Ql (U) Negative Normal NEGATIVE [facility] Comment on above: Performed By: #### U MICRO, ERUR #### [facility] [address] [place] [address] Dr. Etienne Fitch Clarity (U) CLEAR Normal CLEAR [facility] Comment on above: Performed By: #### U MICRO, ERUR #### [facility] [address] [place] [address] Dr. Etienne Fitch Color (U) LT. YELLOW Normal YELLOW [facility] Comment on above: Performed By: #### U MICRO, ERUR #### [facility] [address] [place] [address] Dr. Etienne Fitch ERUAHD A micrscopic examina tion will be performed if indicated. Normal [facility] Comment on above: Performed By: #### U MICRO, ERUR #### [facility] [address] [address] [address] Etienne Fitch Glucose Ql (U) Negative Normal NEGATIVE [facility] Comment on above: Performed By: #### U MICRO, ERUR #### [facility] [address] [place] [address] Dr. Etienne Fitch Hemoglobin Ql (U) Negative Normal NEGATIVE [facility] Comment on above: Performed By: #### U MICRO, ERUR #### [facility] [address] [place] [address] Dr. Etienne Fitch Ketones Ql (U) Negative Normal NEGATIVE [facility] Comment on above: Performed By: #### U MICRO, ERUR #### [facility] [address] [place] [address] Dr. Etienne Fitch LEUKOCYTES Negative Normal NEGATIVE [facility] Comment on above: Performed By: #### U MICRO, ERUR #### [facility] [address] [place] [address] Dr. Etienne Fitch Nitrite Ql (U) Negative Normal NEGATIVE [facility] Comment on above: Performed By: #### U MICRO, ERUR #### [facility] [address] [place] [address] Dr. Etienne Fitch pH (U) 6.0 [pH] Normal 5-9 [facility] Comment on above: Performed By: #### U MICRO, ERUR #### [facility] [address] [place] [address] Dr. Etienne Fitch SPEC GRAVITY 1.015 Normal 1.005-<=1.02 5 [facility] Comment on above: Performed By: #### U MICRO, ERUR #### [facility] [address] [place] [address] Dr. Etienne Fitch UA PROTEIN Negative Normal NEGATIVE/ TRACE [facility] Comment on above: Performed By: #### U MICRO, ERUR #### [facility] [address] [place] [address] Dr. Etienne Fitch UR MICRO IND NOT INDICATED Normal [facility] Comment on above: Performed By: #### U MICRO, ERUR #### [facility] [address] [place] [address] Dr. Etienne Fitch Urobilinogen Qn (U) 0.2 {Nesha'U}/dL Normal 0.2 - 1.0 [facility] Comment on above: Performed By: #### U MICRO, ERUR #### [facility] [address] [place] [address] Dr. Etienne Fitch INFLUENZA A AND B AGon 12-12 INFLUANE SEE BELOW Normal [facility] Comment on above: Result Comment: Nega tive for Flu A protein angiten. Infection due to Flu A cannot be ruled out. Flu A angiten in the sample may be below the detection limit of the test. Performed By: #### I NFLUAB #### [facility] [address] [place] [address] Dr. Etienne Fitch INFLUBNEGH SEE BELOW Normal [facility] Comment on above: Result Comment: Nega tive for Flu B protein antigen. Infection due to Flu B cannot be ruled out. Flu B antigen in the sample may be below the detection limit of the test. Performed By: #### I NFLUAB #### [facility] [address] [place] [address] Dr. Etienne Fitch INFLUENZA A AG Negative Normal NEGATIVE SEE COMMENT [facility] Comment on above: Performed By: #### I NFLUAB #### [facility] [address] [place] [address] Dr. Etienne Fitch INFLUENZA B AG Negative Normal NEGATIVE SEE COMMENT [facility] Comment on above: Performed By: #### I NFLUAB #### [facility] [address] [place] [address] Dr. Etienne Fitch PROF 14(COMP METB)on 023 Albumin [Mass/Vol] 4.4 g/dL Normal 3.4-5.0 [facility] Comment on above: Performed By: #### U MICRO, ERUR #### [facility] [address] [place] [address] Dr. Etienne Fitch Albumin/Globulin [Mass ratio] 1.0 {ratio} Normal [facility] Comment on above: Performed By: #### U MICRO, ERUR #### [facility] [address] [address] [address] Etienne Fitch ALP [Catalytic activity/Vol] 107 U/L Normal 46-116 [facility] Comment on above: Performed By: #### U MICRO, ERUR #### [facility] [address] [address] [address] Etienne Fitch ALT [Catalytic activity/Vol] 23 U/L Normal 16-63 [facility] Comment on above: Performed By: #### U MICRO, ERUR #### [facility] [address] [address] [address] Etienne Fitch Anion gap [Moles/Vol] 19.1 mmol/L Normal [facility] Comment on above: Performed By: #### U MICRO, ERUR #### [facility] [address] [place] [address] Dr. Etienne Fitch AST [Catalytic activity/Vol] 24 U/L Normal 15-37 [facility] Comment on above: Performed By: #### U MICRO, ERUR #### [facility] [address] [address] [address] Etienne Fitch Bilirubin [Mass/Vol] 2.2 mg/dL Critically high 0.2-1.0 [facility] Comment on above: Performed By: #### U MICRO, ERUR #### [facility] [address] [address] [address] Etienne Fitch Calcium [Mass/Vol] 9.5 mg/dL Normal 8.5-10.1 [facility] Comment on above: Performed By: #### U MICRO, ERUR #### [facility] [address] [address] [address] Etienne Fitch Chloride [Moles/Vol] 102 mmol/L Normal 98-107 [facility] Comment on above: Performed By: #### U MICRO, ERUR #### [facility] [address] [address] [address] Etienne Fitch CO2 [Moles/Vol] 26.5 mmol/L Normal 21.0-32.0 [facility] Comment on above: Performed By: #### U MICRO, ERUR #### [facility] [address] [address] [address] Etienne Fitch Creatinine [Mass/Vol] 2.27 mg/dL Critically high 0.70-1.30 [facility] Comment on above: Performed By: #### U MICRO, ERUR #### [facility] [address] [address] [address] Etienne Fitch EGFR-AF [place] 38 mL/min/1.73m2 Critically low >=60 [facility] Comment on above: Performed By: #### U MICRO, ERUR #### [facility] [address] [address] [address] Etienne Fitch EGFR-NON AF [place] 32 mL/min/1.73m2 Critically low >=60 [facility] Comment on above: Performed By: #### U MICRO, ERUR #### [facility] [address] [address] [address] Etienne Fitch Globulin (S) [Mass/Vol] 4.4 g/dL Normal [facility] Comment on above: Performed By: #### U MICRO, ERUR #### [facility] [address] [address] [address] Etienne Fitch Glucose [Mass/Vol] 136 mg/dL Critically high 74-106 [facility] Comment on above: Performed By: #### U MICRO, ERUR #### [facility] [address] [address] [address] Etienne Fitch Potassium [Moles/Vol] 4.6 mmol/L Normal 3.5-5.1 [facility] Comment on above: Performed By: #### U MICRO, ERUR #### [facility] [address] [address] [address] Etienne Fitch Protein [Mass/Vol] 8.8 g/dL Critically high 6.4-8.2 [facility] Comment on above: Performed By: #### U MICRO, ERUR #### [facility] [address] [address] [address] Etienne Fitch Sodium [Moles/Vol] 143 mmol/L Normal 136-145 [facility] Comment on above: Performed By: #### U MICRO, ERUR #### [facility] [address] [address] [address] Etienne Fitch Urea nitrogen [Mass/Vol] 89.0 mg/dL Critically high 7.0-18.0 [facility] Comment on above: Performed By: #### U MICRO, ERUR #### [facility] [address] [address] [address] Eteinne Fitch Urea nitrogen/Creatini ne [Mass ratio] 42.0 mg/mg Normal [facility] Comment on above: Performed By: #### U MICRO, ERUR #### [facility] [address] [place] [address] Dr. Etienne Fitch PROF CHEM 8 (BAS METB)on Anion gap [Moles/Vol] 12.4 mmol/L Normal [facility] Comment on above: Performed By: #### U MICRO, ERUR #### [facility] [address] [address] [address] Etienne Fitch Calcium [Mass/Vol] 8.9 mg/dL Normal 8.5-10.1 [facility] Comment on above: Performed By: #### U MICRO, ERUR #### [facility] [address] [place] [address] Dr. Etienne Fitch Chloride [Moles/Vol] 110 mmol/L Critically high 98-107 [facility] Comment on above: Performed By: #### U MICRO, ERUR #### [facility] [address] [address] [address] Etienne Fitch CO2 [Moles/Vol] 29.6 mmol/L Normal 21.0-32.0 [facility] Comment on above: Performed By: #### U MICRO, ERUR #### [facility] [address] [place] [address] Dr. Etienne Fitch Creatinine [Mass/Vol] 2.04 mg/dL Critically high 0.70-1.30 [facility] Comment on above: Performed By: #### U MICRO, ERUR #### [facility] [address] [place] [address] Dr. Etienne Fitch EGFR-AF [place] 43 mL/min/1.73m2 Critically low >=60 [facility] Comment on above: Performed By: #### U MICRO, ERUR #### [facility] [address] [address] [address] Etienne Fitch EGFR-NON AF [place] 36 mL/min/1.73m2 Critically low >=60 [facility] Comment on above: Performed By: #### U MICRO, ERUR #### [facility] [address] [address] [address] Etienne Fitch Glucose [Mass/Vol] 112 mg/dL Critically high 74-106 [facility] Comment on above: Performed By: #### U MICRO, ERUR #### [facility] [address] [address] [address] Etienne Fitch Potassium [Moles/Vol] 5.0 mmol/L Normal 3.5-5.1 [facility] Comment on above: Performed By: #### U MICRO, ERUR #### [facility] [address] [address] [address] Etienne Fitch Sodium [Moles/Vol] 147 mmol/L Critically high 136-145 [facility] Comment on above: Performed By: #### U MICRO, ERUR #### [facility] [address] [address] [address] Etienne Fitch Urea nitrogen [Mass/Vol] 79.0 mg/dL Critically high 7.0-18.0 [facility] Comment on above: Performed By: #### U MICRO, ERUR #### [facility] [address] [address] [address] Etienne Fitch Urea nitrogen/Creatini ne [Mass ratio] 38.7 mg/mg Normal [facility] Comment on above: Performed By: #### U MICRO, ERUR #### [facility] [address] [address] [address] Etienne Fitch Ambulatory Visit Summaryon Ambulatory Visit Summary JITENDRA SERVIN :1980 Visit [...] RLQ abdominal pain Normal [facility] General Surgery Office/Clini c Noteon 08-07-2022 General [...] [facility] Pathology Noteon 07-29-2022 Pathology Note [id number]#1.00CD:127 Normal [facility] Outside Colonoscopyon 2021 Outside Colonoscopy [id number]#1.00CD:127 Normal [facility] RAD - MRI Reporton 2 RAD - MRI Report [id number]#1.00CD:127 Normal [facility] Lab Reportson 07-22-2022 Lab Reports [id number]#1.00CD:127 Normal [facility] RAD - MRI Reporton 2 RAD - MRI Report [id number]#1.00CD:127 Normal [facility] Covid-19 PCR ([facility])on 06-28 SARS-CoV-2 (COVID-19) RNA KWABENA+probe Ql (Unsp spec) Not detected Normal NOT DETECTED [facility] Comment on above: Result Comment: This test is not yet approved or cleared by the [place] FDA. When there are no FDA-approved or cleared tests available, and other criteria are met, FDA can make tests available under an emergency access mechanism called an Emergency Use Authorization (EUA). The EUA for this test is supported by the Mortgage [employer] Manager of Health and Human Service's (HHS's) declaration [...] consistent with SARS-CoV-2. Performed By: #### C VDTB #### [facility] [id number] Etienne Fitch MRI ABDOMEN WO CONon [...] by: ALEXA HOWARD Date: 2022-07-19 07:49 Normal [facility] Consent for Procedure/Surger yon 07-04-2022 Consent for Procedure/Surgery [id number]#1.00CD:127 Normal [facility] Ambulatory Visit Summaryon [...] [facility] ED [facility]icianon 07-02-20 ED Note-Physician [id number]#1.00CD:127 Normal [facility] RAD - MISCon 06-27-2022 RAD - MISC [id number]#1.00CD:127 Normal [facility] AMYLASEon 06-15-2022 Amylase [Catalytic activity/Vol] 47 U/L Normal 25-115 [facility] Comment on above: Performed By: #### L ACT #### [facility] [address] [place] [address] Dr. Etienne Fitch CBC AUTO DIFFon 06-15-2022 BASO # 0.1 103/ul Normal 0.0-0.1 [facility] Comment on above: Performed By: #### U MICRO, ERUR #### [facility] [address] [place] [address] Dr. Etienne Fitch Basophils/100 WBC (Bld) 0.5 % Normal 0.2-2.0 [facility] Comment on above: Performed By: #### U MICRO, ERUR #### [facility] [address] [place] [address] Dr. Etienne Fitch EO # 0.0 103/ul Normal 0.0-0.7 [facility] Comment on above: Performed By: #### U MICRO, ERUR #### [facility] [address] [place] [address] Dr. Etienne Fitch Eosinophils/100 WBC (Bld) 0.1 % Critically low 0.9-7.0 [facility] Comment on above: Performed By: #### U MICRO, ERUR #### [facility] [address] [place] [address] Dr. Etienne Fitch Erythrocyte distribution width (RBC) [Ratio] 11.9 % Normal 11.0-15.0 [facility] Comment on above: Performed By: #### U MICRO, ERUR #### [facility] [address] [place] [address] Dr. Etienne Fitch Hematocrit (Bld) [Volume fraction] 48.4 % Normal 42.0-54.0 [facility] Comment on above: Performed By: #### U MICRO, ERUR #### [facility] [address] [address] [address] Etienne Fitch Hemoglobin (Bld) [Mass/Vol] 16.6 g/dL Normal 14.0-18.0 [facility] Comment on above: Performed By: #### U MICRO, ERUR #### [facility] [address] [address] [address] Etienne Fitch IG # 0.06 10e3/ul Critically high 0.00-0.03 [facility] Comment on above: Performed By: #### U MICRO, ERUR #### [facility] [address] [place] [address] Dr. Etienne Fitch IG % 0.4 % Normal 0.0-0.5 [facility] Comment on above: Performed By: #### U MICRO, ERUR #### [facility] [address] [place] [address] Dr. Etienne Fitch LYMPH # 0.8 103/ul Critically low 1.2-3.8 [facility] Comment on above: Performed By: #### U MICRO, ERUR #### [facility] [address] [address] [address] Etienne Fitch Lymphocytes/100 WBC (Bld) 5.0 % Critically low 20.5-60.0 [facility] Comment on above: Performed By: #### U MICRO, ERUR #### [facility] [address] [address] [address] Etienne Fitch MANUAL DIFF REQ NO Normal [facility] Comment on above: Performed By: #### U MICRO, ERUR #### [facility] [address] [address] [address] Etienne Fitch MCH (RBC) [Entitic mass] 30.9 pg Normal 25.9-34.0 [facility] Comment on above: Performed By: #### U MICRO, ERUR #### [facility] [address] [address] [address] Etienne Fitch MCHC (RBC) [Mass/Vol] 34.3 g/dL Normal 29.9-35.2 [facility] Comment on above: Performed By: #### U MICRO, ERUR #### [facility] [address] [address] [address] Etienne Fitch MCV (RBC) [Entitic vol] 90.1 fL Normal 80.0-94.0 [facility] Comment on above: Performed By: #### U MICRO, ERUR #### [facility] [address] [place] [address] Dr. Etienne Fitch MONO # 0.8 103/ul Normal 0.3-0.8 [facility] Comment on above: Performed By: #### U MICRO, ERUR #### [facility] [address] [place] [address] Dr. Etienne Fitch Monocytes/100 WBC (Bld) 5.3 % Normal 1.7-12.0 [facility] Comment on above: Performed By: #### U MICRO, ERUR #### [facility] [address] [place] [address] Dr. Etienne Fitch NEUT # 13.9 103/ul Critically high 1.4-6.5 [facility] Comment on above: Performed By: #### U MICRO, ERUR #### [facility] [address] [place] [address] Dr. Etienne Fitch Neutrophils/100 WBC (Bld) 88.7 % Critically high 43.0-75.0 [facility] Comment on above: Performed By: #### U MICRO, ERUR #### [facility] [address] [place] [address] Dr. Etienne Fitch Platelet mean volume (Bld) [Entitic vol] 10.9 fL Normal 9.5-13.5 [facility] Comment on above: Performed By: #### U MICRO, ERUR #### [facility] [address] [place] [address] Dr. Etienne Fitch PLT 424 103/ul Normal 150-450 [facility] Comment on above: Performed By: #### U MICRO, ERUR #### [facility] [address] [place] [address] Dr. Etienne Fitch RBC 5.37 106/ul Normal 4.70-6.10 [facility] Comment on above: Performed By: #### U MICRO, ERUR #### [facility] [address] [place] [address] Dr. Etienne Fitch WBC 15.7 103/ul Critically high 4.0-11.0 [facility] Comment on above: Performed By: #### U MICRO, ERUR #### [facility] [address] [place] [address] Dr. Etienne Fitch DRUG SCREEN RAPID (URINE)on 06-15-2022 AMP Negative Normal NEGATIVE [facility] Comment on above: Performed By: #### D RUGRPD #### [facility] [address] [place] [address] Dr. Etienne Fitch BAR Negative Normal NEGATIVE [facility] Comment on above: Performed By: #### D RUGRPD #### [facility] [address] [place] [address] Dr. Etienne Fitch BUP Negative Normal NEGATIVE [facility] Comment on above: Performed By: #### D RUGRPD #### [facility] [address] [place] [address] Dr. Etienne Fitch BZO Negative Normal NEGATIVE [facility] Comment on above: Performed By: #### D RUGRPD #### [facility] [address] [place] [address] Dr. Etienne Fitch MILTON Negative Normal NEGATIVE [facility] Comment on above: Performed By: #### D RUGRPD #### [facility] [address] [place] [address] Dr. Etienne Fitch CUT-OFFS SEE BELOW Normal [facility] Comment on above: Result Comment: AMP [...] ng/mL Performed By: #### D RUGRPD #### [facility] [address] [place] [address] Dr. Etienne Fitch DRUG CUT HEADER DRUG CLASS TEST SYST EM CUT-OFF CONCENTRATIONS ARE FOLLOWS: Normal [facility] Comment on above: Performed By: #### D RUGRPD #### [facility] [address] [place] [address] Dr. Etienne Fitch mAMP Negative Normal NEGATIVE [facility] Comment on above: Performed By: #### D RUGRPD #### [facility] [address] [place] [address] Dr. Etienne Fitch MTD Negative Normal NEGATIVE [facility] Comment on above: Performed By: #### D RUGRPD #### [facility] [address] [place] [address] Dr. Etienne Fitch OPI Negative Normal NEGATIVE [facility] Comment on above: Performed By: #### D RUGRPD #### [facility] [address] [place] [address] Dr. Etienne Fitch OXY Negative Normal NEGATIVE [facility] Comment on above: Performed By: #### D RUGRPD #### [facility] [address] [place] [address] Dr. Etienne Fitch PCP Negative Normal NEGATIVE [facility] Comment on above: Performed By: #### D RUGRPD #### [facility] [address] [place] [address] Dr. Etienne Fitch PPX Negative Normal NEGATIVE [facility] Comment on above: Performed By: #### D RUGRPD #### [facility] [address] [place] [address] Dr. Etienne Fitch TCA Negative Normal NEGATIVE [facility] Comment on above: Performed By: #### D RUGRPD #### [facility] [address] [place] [address] Dr. Etienne Fitch THC Positive Abnormal NEGATIVE [facility] Comment on above: Performed By: #### D RUGRPD #### [facility] [address] [address] [address] Etienne ANGEL URINE PROFILEon 2 Bilirubin Ql (U) MODERATE Abnormal NEGATIVE [facility] Comment on above: Performed By: #### U MICRO, ERUR #### [facility] [address] [place] [address] Dr. Etienne Fitch Clarity (U) CLEAR Normal CLEAR [facility] Comment on above: Performed By: #### U MICRO, ERUR #### [facility] [address] [address] [address] Etienne Fitch Color (U) DK. ORANGE Abnormal YELLOW [facility] Comment on above: Performed By: #### U MICRO, ERUR #### [facility] [address] [place] [address] Dr. Etienne Fitch ERURAFAT A micrscopic examina tion will be performed if indicated. Normal [facility] Comment on above: Performed By: #### U MICRO, ERUR #### [facility] [address] [address] [address] Etienne Fitch Glucose Ql (U) Negative Normal NEGATIVE [facility] Comment on above: Performed By: #### U MICRO, ERUR #### [facility] [address] [place] [address] Dr. Etienne Fitch Hemoglobin Ql (U) Negative Normal NEGATIVE [facility] Comment on above: Performed By: #### U MICRO, ERUR #### [facility] [address] [address] [address] Etienne Fitch Ketones Ql (U) 40 mg/dl Abnormal NEGATIVE [facility] Comment on above: Performed By: #### U MICRO, ERUR #### [facility] [address] [place] [address] Dr. Etienne Fitch LEUKOCYTES Negative Normal NEGATIVE [facility] Comment on above: Performed By: #### U MICRO, ERUR #### [facility] [address] [place] [address] Dr. Etienne Fitch Nitrite Ql (U) Negative Normal NEGATIVE [facility] Comment on above: Performed By: #### U MICRO, ERUR #### [facility] [address] [address] [address] Etienne Fitch pH (U) 6.0 [pH] Normal 5-9 [facility] Comment on above: Performed By: #### U MICRO, ERUR #### [facility] [address] [place] [address] Dr. Etienne Fitch Protein (U) [Mass/Vol] 100 mg/dL Abnormal NEGATIVE/ TRACE [facility] Comment on above: Performed By: #### U MICRO, ERUR #### [facility] [address] [place] [address] Dr. Etienne Fitch SPEC GRAVITY >=1.030 Abnormal 1.005-<=1.02 5 [facility] Comment on above: Performed By: #### U MICRO, ERUR #### [facility] [address] [place] [address] Dr. Etienne Fitch UR MICRO IND INDICATED Normal [facility] Comment on above: Performed By: #### U MICRO, ERUR #### [facility] [address] [place] [address] Dr. Etienne Fitch Urobilinogen Qn (U) 1.0 {Nesha'U}/dL Normal 0.2 - 1.0 [facility] Comment on above: Performed By: #### U MICRO, ERUR #### [facility] [address] [place] [address] Dr. Etienne Fitch ETHANOL (BLD ALC)on 06-15-20 ALC NOTE NOTE: 80 mg/dl is th e legal limit for a blood alcohol level Normal [facility] Comment on above: Performed By: #### E TH #### [facility] [address] [place] [address] Dr. Etienne Fitch Ethanol [Mass/Vol] mg/dL Normal [facility] Comment on above: Performed By: #### E TH #### [facility] [address] [place] [address] Dr. Etienne Fitch LIPASEon 06-15-2022 Lipase [Catalytic activity/Vol] 32.0 U/L Critically low 73.0-393.0 [facility] Comment on above: Performed By: #### L ACT #### [facility] [address] [place] [address] Dr. Etienne Fitch PROF 14(COMP METB)on 022 Albumin [Mass/Vol] 5.4 g/dL Critically high 3.4-5.0 [facility] Comment on above: Performed By: #### L ACT #### [facility] [address] [place] [address] Dr. Etienne Fitch Albumin/Globulin [Mass ratio] 1.4 {ratio} Normal [facility] Comment on above: Performed By: #### L ACT #### [facility] [address] [place] [address] Dr. Etienne Fitch ALP [Catalytic activity/Vol] 93 U/L Normal 46-116 [facility] Comment on above: Performed By: #### L ACT #### [facility] [address] [place] [address] Dr. Etienne Fitch ALT [Catalytic activity/Vol] 19 U/L Normal 16-63 [facility] Comment on above: Performed By: #### L ACT #### [facility] [address] [place] [address] Dr. Etienne Fitch Anion gap [Moles/Vol] 18.2 mmol/L Normal [facility] Comment on above: Performed By: #### L ACT #### [facility] [address] [place] [address] Dr. Etienne Fitch AST [Catalytic activity/Vol] 23 U/L Normal 15-37 [facility] Comment on above: Performed By: #### L ACT #### [facility] [address] [place], [place] [id number] Dr. Etienne Fitch Bilirubin [Mass/Vol] 3.0 mg/dL Critically high 0.2-1.0 [facility] Comment on above: Performed By: #### L ACT #### [facility] [address] [place] [address] Dr. Etienne Fitch Calcium [Mass/Vol] 11.2 mg/dL Critically high 8.5-10.1 [facility] Comment on above: Performed By: #### L ACT #### [facility] [address] [address] [address] Etienne Fitch Chloride [Moles/Vol] 102 mmol/L Normal 98-107 [facility] Comment on above: Performed By: #### L ACT #### [facility] [address] [address] [address] Etienne Fitch CO2 [Moles/Vol] 27.0 mmol/L Normal 21.0-32.0 [facility] Comment on above: Performed By: #### L ACT #### [facility] [address] [address] [address] Etienne Fitch Creatinine [Mass/Vol] 1.49 mg/dL Critically high 0.70-1.30 [facility] Comment on above: Performed By: #### L ACT #### [facility] [address] [place] [address] Dr. Etienne Fitch EGFR-AF [place] >60 Normal >=60 [facility] Comment on above: Performed By: #### L ACT #### [facility] [address] [address] [address] Etienne Fitch EGFR-NON AF [place] 51 mL/min/1.73m2 Critically low >=60 [facility] Comment on above: Performed By: #### L ACT #### [facility] [address] [address] [address] Etienne Fitch Globulin (S) [Mass/Vol] 4.0 g/dL Normal [facility] Comment on above: Performed By: #### L ACT #### [facility] [address] [address] [address] Etienne Fitch Glucose [Mass/Vol] 183 mg/dL Critically high 74-106 [facility] Comment on above: Performed By: #### L ACT #### [facility] [address] [address] [address] Etienne Fitch Potassium [Moles/Vol] 4.2 mmol/L Normal 3.5-5.1 [facility] Comment on above: Performed By: #### L ACT #### [facility] [address] [address] [address] Etienne Fitch Protein [Mass/Vol] 9.4 g/dL Critically high 6.4-8.2 [facility] Comment on above: Performed By: #### L ACT #### [facility] [address] [address] [address] Etienne Fitch Sodium [Moles/Vol] 143 mmol/L Normal 136-145 [facility] Comment on above: Performed By: #### L ACT #### [facility] [address] [address] [address] Etienne Fitch Urea nitrogen [Mass/Vol] 19.0 mg/dL Critically high 7.0-18.0 [facility] Comment on above: Performed By: #### L ACT #### [facility] [address] [place] [address] Dr. Etienne Fitch Urea nitrogen/Creatini ne [Mass ratio] 12.8 mg/mg Normal [facility] Comment on above: Performed By: #### L ACT #### [facility] [address] [place] [address] Dr. Etienne Fitch URINE MICROSCOPIC ONLYon BACTERIA TRACE Abnormal NONE SEEN [facility] Comment on above: Performed By: #### U MICRO, ERUR #### [facility] [address] [place] [address] Dr. Etienne Fitch Bacteria identified Cx Nom (U) NOT INDICATED Normal [facility] Comment on above: Performed By: #### U MICRO, ERUR #### [facility] [address] [place] [address] Dr. Etienne Fitch CAST SEEN Abnormal NONE SEEN [facility] Comment on above: Performed By: #### U MICRO, ERUR #### [facility] [address] [place] [address] Dr. Etienne Fitch Crystals LM Nom (Urine sed) NONE SEEN Normal NONE SEEN [facility] Comment on above: Performed By: #### U MICRO, ERUR #### [facility] [address] [place] [address] Dr. Etienne Fitch Epithelial cells LM Ql (Urine sed) NONE SEEN Normal NONE SEEN /RARE [facility] Comment on above: Performed By: #### U MICRO, ERUR #### [facility] [address] [place] [address] Dr. Etienne Fitch HYALINE CAST MODERATE Normal [facility] Comment on above: Performed By: #### U MICRO, ERUR #### [facility] [address] [address] [address] Etienne Fitch MUCOUS MODERATE Abnormal NONE SEEN [facility] Comment on above: Performed By: #### U MICRO, ERUR #### [facility] [address] [place] [address] Dr. Etienne Fitch RBC 0-2 Normal 0-2 [facility] Comment on above: Performed By: #### U MICRO, ERUR #### [facility] [address] [place] [address] Dr. Etienne Fitch WBC NONE SEEN Normal NONE SEEN [facility] Comment on above: Performed By: #### U MICRO, ERUR #### [facility] [address] [place] [address] Dr. Etienne Fitch XR ABD FLAT UP_PA [...] by: SHILPI THAPA Date: 2022-06-15 09:44 Normal [facility] ED Note-Physicianon 04-03-20 ED Note-Physician [id number]#[id number]:127 Normal [facility] CBC W MANUAL DIFFon 04-02-20 ATYPICAL LYMPH # Normal [facility] Comment on above: Performed By: #### U MICRO, ERUR #### [facility] [address] [place] [address] Dr. Etienne Fitch ATYPICAL LYMPH % Normal [facility] Comment on above: Performed By: #### U MICRO, ERUR #### [facility] [address] [place] [address] Dr. Etienne Fitch BAND # Normal 0.0-0.3 [facility] Comment on above: Performed By: #### U MICRO, ERUR #### [facility] [address] [place] [address] Dr. Etienne Fitch BAND % Normal 0-5 [facility] Comment on above: Performed By: #### U MICRO, ERUR #### [facility] [address] [place] [address] Dr. Etienne Fitch BASOM # 0.00 103/ul Normal 0.00-0.10 [facility] Comment on above: Performed By: #### U MICRO, ERUR #### [facility] [address] [place] [address] Dr. Etienne Fitch BASOM % 0.0 % Critically low 0.2-2.0 [facility] Comment on above: Performed By: #### U MICRO, ERUR #### [facility] [address] [place] [address] Dr. Etienne Fitch BLAST # Normal [facility] Comment on above: Performed By: #### U MICRO, ERUR #### [facility] [address] [place] [address] Dr. Etienne Fitch BLAST % Normal [facility] Comment on above: Performed By: #### U MICRO, ERUR #### [facility] [address] [place] [address] Dr. Etienne Fitch CORRECTED WBC Normal 4.0-11.0 [facility] Comment on above: Performed By: #### U MICRO, ERUR #### [facility] [address] [place] [address] Dr. Etienne Fitch EOS # 0.00 103/ul Normal 0.00-0.70 [facility] Comment on above: Performed By: #### U MICRO, ERUR #### [facility] [address] [address] [address] Etienne Fitch EOS% 0.0 % Critically low 0.9-7.0 [facility] Comment on above: Performed By: #### U MICRO, ERUR #### [facility] [address] [address] [address] Etienne Fitch HCT 43.5 % Normal 42.0-54.0 [facility] Comment on above: Performed By: #### U MICRO, ERUR #### [facility] [address] [address] [address] Etienne Fitch HGB 14.3 g/dl Normal 14.0-18.0 [facility] Comment on above: Result Comment: gett ing fluids Performed By: #### U MICRO, ERUR #### [facility] [address] [address] [address] Etienne Fitch LYMPHM # 3.30 103/ul Normal 1.20-3.80 [facility] Comment on above: Performed By: #### U MICRO, ERUR #### [facility] [address] [address] [address] Etienne Fitch LYMPHM% 20.0 % Critically low 20.5-60.0 [facility] Comment on above: Performed By: #### U MICRO, ERUR #### [facility] [address] [address] [address] Etienne Fitch MCH 30.9 pg Normal 25.9-34.0 [facility] Comment on above: Performed By: #### U MICRO, ERUR #### [facility] [address] [address] [address] Etienne Fitch MCHC 32.9 g/dl Normal 29.9-35.2 [facility] Comment on above: Performed By: #### U MICRO, ERUR #### [facility] [address] [address] [address] Etienne Fitch MCV 94.0 fL Normal 80.0-94.0 [facility] Comment on above: Performed By: #### U MICRO, ERUR #### [facility] [address] [address] [address] Etienne Fitch METAMYELOCYTE # Normal [facility] Comment on above: Performed By: #### U MICRO, ERUR #### [facility] [address] [place] [address] Dr. Etienne Fitch METAMYELOCYTE % Normal [facility] Comment on above: Performed By: #### U MICRO, ERUR #### [facility] [address] [address] [address] Etienne Fitch MONOM# 2.31 103/ul Critically high 0.30-0.80 [facility] Comment on above: Performed By: #### U MICRO, ERUR #### [facility] [address] [place] [address] Dr. Etienne Fitch MONOM% 14.0 % Critically high 1.7-12.0 [facility] Comment on above: Performed By: #### U MICRO, ERUR #### [facility] [address] [place] [address] Dr. Etienne Fitch MPV 10.5 fL Normal 9.5-13.5 [facility] Comment on above: Performed By: #### U MICRO, ERUR #### [facility] [address] [place] [address] Dr. Etienne Fitch MYELOCYTE # Normal [facility] Comment on above: Performed By: #### U MICRO, ERUR #### [facility] [address] [address] [address] Etienne Fitch MYELOCYTE % Normal [facility] Comment on above: Performed By: #### U MICRO, ERUR #### [facility] [address] [address] [address] Etienne Fitch NRBC Normal [facility] Comment on above: Performed By: #### U MICRO, ERUR #### [facility] [address] [place] [address] Dr. Etienne Fitch PLT 285 103/ul Normal 150-450 [facility] Comment on above: Performed By: #### U MICRO, ERUR #### [facility] [address] [address] [address] Etienne Fitch RBC 4.63 106/ul Critically low 4.70-6.10 [facility] Comment on above: Performed By: #### U MICRO, ERUR #### [facility] [address] [address] [address] Etienne Fitch RDW 12.8 % Normal 11.0-15.0 [facility] Comment on above: Performed By: #### U MICRO, ERUR #### [facility] [address] [address] [address] Etienne Fitch SEG # 10.89 103/ul Critically high 1.40-6.50 [facility] Comment on above: Performed By: #### U MICRO, ERUR #### [facility] [address] [place] [address] Dr. Etienne Fitch SEG % 66.0 % Normal 43.0-75.0 [facility] Comment on above: Performed By: #### U MICRO, ERUR #### [facility] [address] [place] [address] Dr. Etienne Fitch TOXIC GRANULATION 1+ Normal [facility] Comment on above: Performed By: #### U MICRO, ERUR #### [facility] [address] [place] [address] Dr. Etienne Fitch WBC 16.5 103/ul Critically high 4.0-11.0 [facility] Comment on above: Performed By: #### U MICRO, ERUR #### [facility] [address] [place] [address] Dr. Etienne Fitch PROF 14(COMP METB)on 022 Albumin [Mass/Vol] 3.2 g/dL Critically low 3.4-5.0 [facility] Comment on above: Performed By: #### L ACT #### [facility] [address] [place] [address] Dr. Etienne Fitch Albumin/Globulin [Mass ratio] 1.1 {ratio} Normal [facility] Comment on above: Performed By: #### L ACT #### [facility] [address] [address] [address] Etienne Fitch ALP [Catalytic activity/Vol] 55 U/L Normal 46-116 [facility] Comment on above: Performed By: #### L ACT #### [facility] [address] [place] [address] Dr. Etienne Fitch ALT [Catalytic activity/Vol] 28 U/L Normal 16-63 [facility] Comment on above: Performed By: #### L ACT #### [facility] [address] [place] [address] Dr. Etienne Fitch Anion gap [Moles/Vol] 12.6 mmol/L Normal [facility] Comment on above: Performed By: #### L ACT #### [facility] [address] [place] [address] Dr. Etienne Fitch AST [Catalytic activity/Vol] 20 U/L Normal 15-37 [facility] Comment on above: Performed By: #### L ACT #### [facility] [address] [place] [address] Dr. Etienne Fitch Bilirubin [Mass/Vol] 2.8 mg/dL Critically high 0.2-1.0 [facility] Comment on above: Performed By: #### L ACT #### [facility] [address] [place] [address] Dr. Etienne Fitch Calcium [Mass/Vol] 7.8 mg/dL Critically low 8.5-10.1 [facility] Comment on above: Performed By: #### L ACT #### [facility] [address] [place] [address] Dr. Etienne Fitch Chloride [Moles/Vol] 104 mmol/L Normal 98-107 [facility] Comment on above: Performed By: #### L ACT #### [facility] [address] [place] [address] Dr. Etienen Fitch CO2 [Moles/Vol] 28.0 mmol/L Normal 21.0-32.0 [facility] Comment on above: Performed By: #### L ACT #### [facility] [address] [place] [address] Dr. Etienne Fitch Creatinine [Mass/Vol] 0.97 mg/dL Normal 0.70-1.30 [facility] Comment on above: Performed By: #### L ACT #### [facility] [address] [address] [address] Etienne Fitch EGFR-AF [place] >60 Normal >=60 [facility] Comment on above: Performed By: #### L ACT #### [facility] [address] [address] [address] Etienne Fitch EGFR-NON AF [place] >60 Normal >=60 [facility] Comment on above: Performed By: #### L ACT #### [facility] [address] [address] [address] Etienne Fitch Globulin (S) [Mass/Vol] 2.9 g/dL Normal [facility] Comment on above: Performed By: #### L ACT #### [facility] [address] [address] [address] Etienne Fitch Glucose [Mass/Vol] 108 mg/dL Critically high 74-106 [facility] Comment on above: Performed By: #### L ACT #### [facility] [address] [address] [address] Etienne Fitch Potassium [Moles/Vol] 3.6 mmol/L Normal 3.5-5.1 [facility] Comment on above: Performed By: #### L ACT #### [facility] [address] [address] [address] Etienne Fitch Protein [Mass/Vol] 6.1 g/dL Critically low 6.4-8.2 [facility] Comment on above: Performed By: #### L ACT #### [facility] [address] [address] [address] Etienne Fitch Sodium [Moles/Vol] 141 mmol/L Normal 136-145 [facility] Comment on above: Performed By: #### L ACT #### [facility] [address] [address] [address] Etienne Fitch Urea nitrogen [Mass/Vol] 33.0 mg/dL Critically high 7.0-18.0 [facility] Comment on above: Performed By: #### L ACT #### [facility] [address] [address] [address] Etienne Fitch Urea nitrogen/Creatini ne [Mass ratio] 34.0 mg/mg Normal [facility] Comment on above: Performed By: #### L ACT #### [facility] [address] [address] [address] Etienne Fitch US SINGLE QUAD RT [...] ALEXA HOWARD Date: 2022-04-02 09:08 Normal [facility] CBC AUTO DIFFon 04-01-2022 BASO # 0.1 103/ul Normal 0.0-0.1 [facility] Comment on above: Performed By: #### U MICRO, ERUR #### [facility] [address] [address] [address] Etienne Fitch Basophils/100 WBC (Bld) 0.4 % Normal 0.2-2.0 [facility] Comment on above: Performed By: #### U MICRO, ERUR #### [facility] [address] [place] [address] Dr. Etienne Fitch EO # 0.0 103/ul Normal 0.0-0.7 [facility] Comment on above: Performed By: #### U MICRO, ERUR #### [facility] [address] [place] [address] Dr. Etienne Fitch Eosinophils/100 WBC (Bld) 0.0 % Critically low 0.9-7.0 [facility] Comment on above: Performed By: #### U MICRO, ERUR #### [facility] [address] [place] [address] Dr. Etienne Fitch Erythrocyte distribution width (RBC) [Ratio] 12.8 % Normal 11.0-15.0 [facility] Comment on above: Performed By: #### U MICRO, ERUR #### [facility] [address] [place] [address] Dr. Etienne Fitch Hematocrit (Bld) [Volume fraction] 55.1 % Critically high 42.0-54.0 [facility] Comment on above: Performed By: #### U MICRO, ERUR #### [facility] [address] [place] [address] Dr. Etienne Fitch Hemoglobin (Bld) [Mass/Vol] 18.3 g/dL Critically high 14.0-18.0 [facility] Comment on above: Performed By: #### U MICRO, ERUR #### [facility] [address] [place] [address] Dr. Etienne Fitch IG # 0.11 10e3/ul Critically high 0.00-0.03 [facility] Comment on above: Performed By: #### U MICRO, ERUR #### [facility] [address] [place] [address] Dr. Etienne Fitch IG % 0.5 % Normal 0.0-0.5 [facility] Comment on above: Performed By: #### U MICRO, ERUR #### [facility] [address] [place] [address] Dr. Etienne Fitch LYMPH # 1.2 103/ul Normal 1.2-3.8 [facility] Comment on above: Performed By: #### U MICRO, ERUR #### [facility] [address] [place] [address] Dr. Etienne Fitch Lymphocytes/100 WBC (Bld) 5.7 % Critically low 20.5-60.0 [facility] Comment on above: Performed By: #### U MICRO, ERUR #### [facility] [address] [place] [address] Dr. Etienne Fitch MANUAL DIFF REQ NO Normal [facility] Comment on above: Performed By: #### U MICRO, ERUR #### [facility] [address] [place] [address] Dr. Etienne Fitch MCH (RBC) [Entitic mass] 30.7 pg Normal 25.9-34.0 [facility] Comment on above: Performed By: #### U MICRO, ERUR #### [facility] [address] [place] [address] Dr. Etienne Fitch MCHC (RBC) [Mass/Vol] 33.2 g/dL Normal 29.9-35.2 [facility] Comment on above: Performed By: #### U MICRO, ERUR #### [facility] [address] [place] [address] Dr. Etienne Fitch MCV (RBC) [Entitic vol] 92.3 fL Normal 80.0-94.0 [facility] Comment on above: Performed By: #### U MICRO, ERUR #### [facility] [address] [place] [address] Dr. Etienne Fitch MONO # 1.6 103/ul Critically high 0.3-0.8 [facility] Comment on above: Performed By: #### U MICRO, ERUR #### [facility] [address] [place] [address] Dr. Etienne Fitch Monocytes/100 WBC (Bld) 7.4 % Normal 1.7-12.0 [facility] Comment on above: Performed By: #### U MICRO, ERUR #### [facility] [address] [place] [address] Dr. Etienne Fitch NEUT # 18.6 103/ul Critically high 1.4-6.5 [facility] Comment on above: Performed By: #### U MICRO, ERUR #### [facility] [address] [place] [address] Dr. Etienne Fitch Neutrophils/100 WBC (Bld) 86.0 % Critically high 43.0-75.0 [facility] Comment on above: Performed By: #### U MICRO, ERUR #### [facility] [address] [address] [address] Etienne Fitch Platelet mean volume (Bld) [Entitic vol] 10.3 fL Normal 9.5-13.5 [facility] Comment on above: Performed By: #### U MICRO, ERUR #### [facility] [address] [address] [address] Etienne Fitch PLT 447 103/ul Normal 150-450 [facility] Comment on above: Performed By: #### U MICRO, ERUR #### [facility] [address] [address] [address] Etienne Fitch RBC 5.97 106/ul Normal 4.70-6.10 [facility] Comment on above: Performed By: #### U MICRO, ERUR #### [facility] [address] [address] [address] Etienne Fitch WBC 21.6 103/ul Critically high 4.0-11.0 [facility] Comment on above: Performed By: #### U MICRO, ERUR #### [facility] [address] [place] [address] ABD/PELV W CONon [...] ALEXA HOWARD Date: 2022-04-01 15:11 Normal [facility] Covid-19 PCR (CVDTBH)on SARS-CoV-2 (COVID-19) RNA KWABENA+probe Ql (Unsp spec) Not detected Normal NOT DETECTED [facility] Comment on above: Result Comment: When [...] for this test is supported by the Mortgage Processing Manager of Health and Human Service's declaration that [...] used). Performed By: #### C VDTBH #### [facility] [address] [place] [address] Dr. Etienne Fitch ER URINE PROFILEon 2 Bilirubin Ql (U) MODERATE Abnormal NEGATIVE [facility] Comment on above: Performed By: #### U MICRO, ERUR #### [facility] [address] [place] [address] Dr. Etienne Fitch Clarity (U) CLEAR Normal CLEAR [facility] Comment on above: Performed By: #### U MICRO, ERUR #### [facility] [address] [address] [address] Etienne Fitch Color (U) DK. ORANGE Abnormal YELLOW [facility] Comment on above: Performed By: #### U MICRO, ERUR #### [facility] [address] [place] [address] Dr. Etienne GARCIA A micrscopic examina tion will be performed if indicated. Normal [facility] Comment on above: Performed By: #### U MICRO, ERUR #### [facility] [address] [address] [address] Etienne Fitch Glucose Ql (U) Negative Normal NEGATIVE [facility] Comment on above: Performed By: #### U MICRO, ERUR #### [facility] [address] [place] [address] Dr. Etienne Fitch Hemoglobin Ql (U) Negative Normal NEGATIVE [facility] Comment on above: Performed By: #### U MICRO, ERUR #### [facility] [address] [place] [address] Dr. Etienne Fitch Ketones Ql (U) Negative Normal NEGATIVE [facility] Comment on above: Performed By: #### U MICRO, ERUR #### [facility] [address] [place] [address] Dr. Etienne Fitch LEUKOCYTES Negative Normal NEGATIVE [facility] Comment on above: Performed By: #### U MICRO, ERUR #### [facility] [address] [place] [address] Dr. Etienne Fitch Nitrite Ql (U) Negative Normal NEGATIVE [facility] Comment on above: Performed By: #### U MICRO, ERUR #### [facility] [address] [place] [address] Dr. Etienne Fitch pH (U) 5.5 [pH] Normal 5-9 [facility] Comment on above: Performed By: #### U MICRO, ERUR #### [facility] [address] [place] [address] Dr. Etienne Fitch Protein (U) [Mass/Vol] 100 mg/dL Abnormal NEGATIVE/ TRACE [facility] Comment on above: Performed By: #### U MICRO, ERUR #### [facility] [address] [place] [address] Dr. Etienne Fitch SPEC GRAVITY >=1.030 Abnormal 1.005-<=1.02 5 [facility] Comment on above: Performed By: #### U MICRO, ERUR #### [facility] [address] [place] [address] Dr. Etienne Fitch UR MICRO IND INDICATED Normal [facility] Comment on above: Performed By: #### U MICRO, ERUR #### [facility] [address] [place] [address] Dr. Etienne Fitch Urobilinogen Qn (U) 1.0 {Nesha'U}/dL Normal 0.2 - 1.0 [facility] Comment on above: Performed By: #### U MICRO, ERUR #### [facility] [address] [place] [address] Dr. Etienne Fitch LACTATE/LACTIC ACIDon 2021 Lactate [Moles/Vol] 1.8 mmol/L Normal 0.4-1.9 [facility] Comment on above: Performed By: #### U MICRO, ERUR #### [facility] [address] [place] [address] Dr. Etienne Fitch Lactate [Moles/Vol] 2.3 mmol/L Critically high 0.4-1.9 [facility] Comment on above: Result Comment: repe ated Performed By: #### L ACT #### [facility] [address] [place] [address] Dr. Etienne Fitch LIPASEon 04-01-2022 Lipase [Catalytic activity/Vol] 32.0 U/L Critically low 73.0-393.0 [facility] Comment on above: Performed By: #### U MICRO, ERUR #### [facility] [address] [place] [address] Dr. Etienne Fitch PROF 14(COMP METB)on Albumin [Mass/Vol] 4.9 g/dL Normal 3.4-5.0 [facility] Comment on above: Performed By: #### U MICRO, ERUR #### [facility] [address] [address] [address] Etienne Fitch Albumin/Globulin [Mass ratio] 1.2 {ratio} Normal [facility] Comment on above: Performed By: #### U MICRO, ERUR #### [facility] [address] [address] [address] Etienne Fitch ALP [Catalytic activity/Vol] 82 U/L Normal 46-116 [facility] Comment on above: Performed By: #### U MICRO, ERUR #### [facility] [address] [address] [address] Etienne Fitch ALT [Catalytic activity/Vol] 37 U/L Normal 16-63 [facility] Comment on above: Performed By: #### U MICRO, ERUR #### [facility] [address] [place] [address] Dr. Etienne Fitch Anion gap [Moles/Vol] 13.2 mmol/L Normal [facility] Comment on above: Performed By: #### U MICRO, ERUR #### [facility] [address] [place] [address] Dr. Etienne Fitch AST [Catalytic activity/Vol] 31 U/L Normal 15-37 [facility] Comment on above: Performed By: #### U MICRO, ERUR #### [facility] [address] [place] [address] Dr. Etienne Fitch Bilirubin [Mass/Vol] 4.8 mg/dL Critically high 0.2-1.0 [facility] Comment on above: Performed By: #### U MICRO, ERUR #### [facility] [address] [place] [address] Dr. Etienne Fitch Calcium [Mass/Vol] 9.8 mg/dL Normal 8.5-10.1 [facility] Comment on above: Performed By: #### U MICRO, ERUR #### [facility] [address] [place] [address] Dr. Etienne Fitch Chloride [Moles/Vol] 98 mmol/L Normal 98-107 [facility] Comment on above: Performed By: #### U MICRO, ERUR #### [facility] [address] [address] [address] Etienne Fitch CO2 [Moles/Vol] 31.2 mmol/L Normal 21.0-32.0 [facility] Comment on above: Performed By: #### U MICRO, ERUR #### [facility] [address] [place] [address] Dr. Etienne Fitch Creatinine [Mass/Vol] 1.63 mg/dL Critically high 0.70-1.30 [facility] Comment on above: Performed By: #### U MICRO, ERUR #### [facility] [address] [address] [address] Etienne Fitch EGFR-AF [place] 56 mL/min/1.73m2 Critically low >=60 [facility] Comment on above: Performed By: #### U MICRO, ERUR #### [facility] [address] [place] [address] Dr. Etienne Fitch EGFR-NON AF [place] 46 mL/min/1.73m2 Critically low >=60 [facility] Comment on above: Performed By: #### U MICRO, ERUR #### [facility] [address] [address] [address] Etienne Fitch Globulin (S) [Mass/Vol] 4.1 g/dL Normal [facility] Comment on above: Performed By: #### U MICRO, ERUR #### [facility] [address] [address] [address] Etienne Fitch Glucose [Mass/Vol] 142 mg/dL Critically high 74-106 [facility] Comment on above: Performed By: #### U MICRO, ERUR #### [facility] [address] [address] [address] Etienne Fitch Potassium [Moles/Vol] 3.4 mmol/L Critically low 3.5-5.1 [facility] Comment on above: Performed By: #### U MICRO, ERUR #### [facility] [address] [place] [address] Dr. Etienne Fitch Protein [Mass/Vol] 9.0 g/dL Critically high 6.4-8.2 [facility] Comment on above: Performed By: #### U MICRO, ERUR #### [facility] [address] [address] [address] Etienne Fitch Sodium [Moles/Vol] 139 mmol/L Normal 136-145 [facility] Comment on above: Performed By: #### U MICRO, ERUR #### [facility] [address] [place] [address] Dr. Etienne Fitch Urea nitrogen [Mass/Vol] 40.0 mg/dL Critically high 7.0-18.0 [facility] Comment on above: Performed By: #### U MICRO, ERUR #### [facility] [address] [place] [address] Dr. Etienne Fitch Urea nitrogen/Creatini ne [Mass ratio] 24.5 mg/mg Normal [facility] Comment on above: Performed By: #### U MICRO, ERUR #### [facility] [address] [place] [address] Dr. Etienne Fitch TROPONIN, HIGH SENSITIVITYon 04-01-2022 HSTROP 44.4 pg/mL Normal 4.0-76.1 [facility] Comment on above: Result Comment: CUT- OFF POINTS HAVE BEEN ESTABLISHED BASED ON THE FOURTH UNIVERSAL DEFINITIONS OF MYOCARDIAL INFARCTION. THE UPPER REFERENCE LIMIT (URL) OF TROPONIN, DEFINED THE 99TH PERCENTILE OF cTnI DISTRIBUTION IN A REFERENCE POPULATION, HAS BEEN CONFIRMED THE DECISION THRESHOLD FOR MN DIAGNOSIS. Performed By: #### U MICRO, ERUR #### [facility] [address] [place] [address] Dr. Etienne Fitch URINE MICROSCOPIC ONLYon BACTERIA NONE SEEN Normal NONE SEEN [facility] Comment on above: Performed By: #### U MICRO, ERUR #### [facility] [address] [place] [address] Dr. Etienne Fitch Bacteria identified Cx Nom (U) NOT INDICATED Normal [facility] Comment on above: Performed By: #### U MICRO, ERUR #### [facility] [address] [place] [address] Dr. Etienne Fitch CAST SEEN Abnormal NONE SEEN [facility] Comment on above: Performed By: #### U MICRO, ERUR #### [facility] [address] [address] [address] Etienne Fitch Crystals LM Nom (Urine sed) NONE SEEN Normal NONE SEEN [facility] Comment on above: Performed By: #### U MICRO, ERUR #### [facility] [address] [address] [address] Etienne Fitch Epithelial cells LM Ql (Urine sed) NONE SEEN Normal NONE SEEN /RARE [facility] Comment on above: Performed By: #### U MICRO, ERUR #### [facility] [address] [address] [address] Etienne Fitch MUCOUS NONE SEEN Normal NONE SEEN [facility] Comment on above: Performed By: #### U MICRO, ERUR #### [facility] [address] [place] [address] Dr. Etienne iFtch RBC NONE SEEN Abnormal 0-2 [facility] Comment on above: Performed By: #### U MICRO, ERUR #### [facility] [address] [address] [address] Etienne Fitch WBC 0-2 Abnormal NONE SEEN [facility] Comment on above: Performed By: #### U MICRO, ERUR #### [facility] [address] [place] [address] Dr. Etienne Fitch Vital Signs Date Time Vital Sign Value Performing Clinician Faci lity 06-08-2025 10: Body height 182.9 cm Lidia Teixeira MD Work Phone: [facility] 06-08-2025 10: Body mass index (BMI) [Ratio] 28.75 kg/m2 Lidia Teixeira MD Work Phone: [facility] 06-08-2025 10: Body weight 96.16 kg Lidia Teixeira MD Work Phone: [facility] 06-08-2025 10: Diastolic blood pressure 88 mm[Hg] Lidia Teixeira MD Work Phone: [facility] 06-08-2025 10:19-0400 Heart rate 87 /min [facility] 06-08-2025 10:19-0400 SaO2% (BldA) [Mass fraction] 95 % Lidia Teixeira MD Work Phone: [facility] [employer] 06-08-2025 10:19-0400 Systolic blood pressure 122 mm[Hg] Lidia Teixeira MD Work Phone: [facility] [employer] [facility] 04-27-2025 11:26-0400 Body height 182.9 cm Yasminscot Wood BUSINESS DEVELOPMENT COORDINATOR-STUDENT OUTREACH COORDINATOR Work Phone: [facility] [employer] [facility] 04-27-2025 11:26-0400 Body mass index (BMI) [Ratio] 28.24 kg/m2 Yasminscot Sparrowgel BUSINESS DEVELOPMENT COORDINATOR-STUDENT OUTREACH COORDINATOR [facility] 04-27-2025 11:26-0400 Body weight 94.44 kg Yasmin Kyaragel BUSINESS DEVELOPMENT COORDINATOR-STUDENT OUTREACH COORDINATOR [facility] 04-27-2025 11:26-0400 Diastolic blood pressure 88 mm[Hg] Yasmin Sparrowgel BUSINESS DEVELOPMENT COORDINATOR-STUDENT OUTREACH COORDINATOR [facility] 04-27-2025 11:26-0400 Heart rate 68 /min Yasmin Kyaragel BUSINESS DEVELOPMENT COORDINATOR-STUDENT OUTREACH COORDINATOR [facility] 04-27-2025 11:26-0400 SaO2% (BldA) [Mass fraction] 99 % Yasmin Kyaragel BUSINESS DEVELOPMENT COORDINATOR-STUDENT OUTREACH COORDINATOR [facility] 04-27-2025 11:26-0400 Systolic blood pressure 127 mm[Hg] Yasmin Kyaragel BUSINESS DEVELOPMENT COORDINATOR-STUDENT OUTREACH COORDINATOR Work Phone: [facility] [employer] [facility] 07-02-2022 13:15-0400 Blood Pressure Location Anupam POOLE [facility] [place] 07-02-2022 13:15-0400 Diastolic blood pressure 74 mm[Hg] Anupam POOLE [facility] [place] 07-02-2022 13:15-0400 Heart rate 72 /min Anupam POOLE General [facility] 07-02-2022 13:15-0400 Respiratory rate 16 /min Anupam POOLE General Surgery [place] 07-02-2022 13:15-0400 Systolic blood pressure 120 mm[Hg] Anupam POOLE [facility] [place] Encounters Encounter Date Encounter Type Care Provider Facility Start: 06-08-2025 End: 06-08-2025 Office outpatient new 45 minutes Lidia Teixeira MD Work Phone: [facility] Comment on above: Abnormal EKG (Primar y Dx); Cardiac enlargement; Elevated blood pressure reading Start: 06-08-2025 End: 06-08-2025 ambulatory [facility] Start: 06-07-2025 End: 06-07-2025 Telephone encounter Ignacia Ocasio [facility] Start: 05-06-2025 End: 05-06-2025 Telephone encounter Lorenza Andres [facility] Start: 04-28-2025 End: 04-28-2025 Telephone encounter Orders Support User Transcribe [facility] - [facility] Disorders Comment on above: Sleep Lab (PSG Order ) Start: 04-27-2025 End: 04-27-2025 Orders Only Nannette Perez BUSINESS DEVELOPMENT COORDINATOR-DRIVER'S EDUCATION INSTRUCTOR Work Phone: [facility] Start: 04-27-2025 End: 04-27-2025 ambulatory [facility] Start: 04-27-2025 End: 04-27-2025 Office outpatient new 45 minutes Yasmin Wood BUSINESS DEVELOPMENT COORDINATOR-STUDENT OUTREACH COORDINATOR Work Phone: [facility] Comment on above: Fatigue, unspecified type (Primary Dx); Sleep apnea, unspecified type; Snoring; BMI 28.0-28.9,adult; Overweight with body mass index (BMI) of 28 to 28.9 in adult; Marijuana use Start: 01-26-2025 End: 01-26-2025 Orders Only Nannette Perez BUSINESS DEVELOPMENT COORDINATOR-DRIVER'S EDUCATION INSTRUCTOR Work Phone: [facility] Comment on above: Encounter for screen ing for other viral diseases Encounter for screen ing for cardiovascular disorders Encounter for genera l adult medical examination without abnormal findings Encounter for screen ing for human immunodeficiency virus (HIV) Encounter for screen ing for other suspected endocrine disorder Start: 01-26-2025 End: 01-26-2025 Patient encounter status Nannette Perez BUSINESS DEVELOPMENT COORDINATOR-DRIVER'S EDUCATION INSTRUCTOR [facility] Start: 02-07-2023 Encounter for genera l adult medical examination without abnormal findings JEOVANY [facility] Start: 01-29-2023 End: 01-30-2023 ambulatory JEOVANY HENRIQUEZAZ Facility:[facility] Start: 01-29-2023 End: 01-30-2023 Encounter for general adult medical examination without abnormal findings [facility] Facility:[facility] Start: 12-18-2022 End: 12-19-2022 ambulatory MAKENZIE TURNER Facility:[facility] Start: 12-12-2022 End: 12-12-2022 ambulatory EVELYN Mercedes Facility:[facility] Start: 08-07-2022 ambulatory Anupam POOLE Facility :[facility] Start: 08-07-2022 End: 08-07-2022 Patient encounter procedure Anupam POOLE General Surgery [facility] Start: 07-24-2022 Encounter for prepro cedural laboratory examination DR ANUPAM Mercedes [facility] Start: 07-24-2022 End: 07-25-2022 ambulatory Anupam POOLE Facility:CD:[id number] Start: 07-20-2022 End: 07-21-[address] ANUPAM Mercedes Facility:[facility] Start: 07-20-2022 End: 07-21-2022 Encounter for preprocedural laboratory examination DR ANUPAM Mercedes Facility:[facility] Start: 07-17-2022 End: 07-18-[address] ANUPAM Mercedes Facility:[facility] Start: 07-02-2022 End: 07-03-2022 ambulatory Anupam Bob SAMIR Facility: [facility] Start: 07-02-2022 End: 07-02-2022 Patient encounter procedure Anupam Bob SAMIR General Surgery N[facility] Start: 06-15-2022 End: 06-15-2022 ambulatory EVELYN GLASER . Facility: Start: 04-23-2022 ambulatory Anupam R NILL Facility : [facility] Start: 04-02-2022 ambulatory Anupam R NILL Facility : [facility] Start: 04-01-2022 End: 04-02-[address] ALEXA HOWARD Facility:[facility] Procedures Date Procedure Procedure Detail Performing Clinician Start: 07-24-2022 Colonoscopy Anupam ELLIOTT Start: 07-24-2022 Esophagogastroduodenoscopy Anupam POOLE None (qualifier value) Elias kya POOLE Plan of Treatment Date Care Activity Detail Author Start: 11-11-2033 DTaP,Tdap and Td Vaccines (2 - Td or Tdap) DTaP,Tdap and Td Vaccines (2 - Td or Tdap) [facility] Start: 04-27-2026 Adult BMI Screening Adult BMI Screen ing [facility] Start: 04-27-2026 Tobacco Screening Tobacco Screening [facility] Start: 11-02-2025 End: 11-02-2025 Patient encounter procedure 11/02/2025 9:45 AM EST Office Visit [facility] [address] [place] [address] Yasmin Wood, BUSINESS DEVELOPMENT COORDINATOR-STUDENT OUTREACH COORDINATOR [address], [address] [place] [id number] [facility] Start: 07-05-2025 End: 07-05-2025 Clinical Support 07/05/2025 8:00 PM EDT Clinical Support [facility] [address] [place] [id number] [facility] Start: 06-27-2025 Influenza vaccination Influenza Vacc ine [facility] Start: 06-08-2025 End: 06-08-2026 Echo complete W/O contrast Echo complete W/O contrast Echocardiography Routine Abnormal EKG Expected: 06/08/2025, Expires: 06/08/2026 [employer] Work Phone: Comment on above: Expected: 06/08/2025 , Expires: 06/08/2026 Start: 06-08-2025 End: 06-08-2025 Patient encounter procedure 06/08/2025 10:30 AM EDT Office Visit [facility] [address] [place] [address] Lidia Teixeira MD [address] [place] [address] [facility] Start: 04-04-2025 End: 04-27-2026 CBC panel - Blood by Automated count CBC without diff Lab Routine Expected: 04/04/2025, Expires: 04/27/2026 [employer] Work Phone: Comment on above: Expected: 04/04/2025 , Expires: 04/27/2026 Start: 04-04-2025 End: 04-27-2026 Comprehensive metabolic 2000 panel - Serum or Plasma Comprehensive metabolic panel Lab Routine Expected: 04/04/2025, Expires: 04/27/2026 [employer] Work Phone: Comment on above: Expected: 04/04/2025 , Expires: 04/27/2026 Start: 04-04-2025 End: 04-27-2026 Hepatitis C virus Ab [Presence] in Serum or Plasma by Immunoassay Hepatitis C(HCV) Ab w/ Reflex to PCR Lab Routine Expected: 04/04/2025, Expires: 04/27/2026 [employer] Work Phone: Comment on above: Expected: 04/04/2025 , Expires: 04/27/2026 Start: 04-04-2025 End: 04-27-2026 HIV 1+2 Ab+HIV1 p24 Ag [Presence] in Serum or Plasma by Immunoassay HIV 1&2 AB/AG Screen (P24 AG) Lab Routine Expected: 04/04/2025, Expires: 04/27/2026 [employer] Work Phone: Comment on above: Expected: 04/04/2025 , Expires: 04/27/2026 Start: 04-04-2025 End: 04-27-2026 Lipid 1996 panel - Serum or Plasma Lipid profile Lab Routine Expected: 04/04/2025, Expires: 04/27/2026 [employer] Work Phone: Comment on above: Expected: 04/04/2025 , Expires: 04/27/2026 Start: 04-04-2025 End: 04-27-2026 TSH with Reflex TSH with Reflex Lab Routine Expected: 04/04/2025, Expires: 04/27/2026 [employer] Work Phone: Comment on above: Expected: 04/04/2025 , Expires: 04/27/2026 Start: 01-26-2025 End: 01-26-2026 CBC panel - Blood by Automated count CBC without diff Lab Routine Encounter for general adult medical examination without abnormal findings Expected: 01/26/2025, Expires: 01/26/2026 [employer] Phone: Comment on above: Expected: 01/26/2025 , Expires: 01/26/2026 Start: 01-26-2025 End: 01-26-2026 Comprehensive metabolic 2000 panel - Serum or Plasma Comprehensive metabolic panel Lab Routine Encounter for general adult medical examination without abnormal findings Expected: 01/26/2025, Expires: 01/26/2026 [employer] Work Phone: Comment on above: Expected: 01/26/2025 , Expires: 01/26/2026 Start: 01-26-2025 End: 01-26-2026 Hepatitis C(HCV) Ab w/ Reflex to PCR Hepatitis C(HCV) Ab w/ Reflex to PCR Lab Routine Encounter for screening for other viral diseases Expected: 01/26/2025, Expires: 01/26/2026 [employer] Work Phone: Comment on above: Expected: 01/26/2025 , Expires: 01/26/2026 Start: 01-26-2025 End: 01-26-2026 HIV 1&2 AB/AG Screen (P24 AG) HIV 1&2 AB/AG Screen (P24 AG) Lab Routine Encounter for screening for human immunodeficiency virus (HIV) Expected: 01/26/2025, Expires: 01/26/2026 [employer] Work Phone: Comment on above: Expected: 01/26/2025 , Expires: 01/26/2026 Start: 01-26-2025 End: 01-26-2026 Lipid 1996 panel - Serum or Plasma Lipid profile Lab Routine Encounter for screening for cardiovascular disorders Expected: 01/26/2025, Expires: 01/26/2026 [employer] Phone: Comment on above: Expected: 01/26/2025 , Expires: 01/26/2026 Start: 01-26-2025 End: 01-26-2026 TSH with Reflex TSH with Reflex Lab Routine Encounter for screening for other suspected endocrine disorder Expected: 01/26/2025, Expires: 01/26/2026 [employer] Work Phone: Comment on above: Expected: 01/26/2025 , Expires: 01/26/2026 Start: 06-27-2024 COVID-19 Vaccine () COVID-19 Vaccine () [employer] Start: 1996 Adult BMI Follow Up Plan [facility] Start: 1996 Adult BMI Screening [facility] Start: 1990 Depression Screening [facility] Start: 1990 Tobacco [facility]ening [facility] End: 04-27-2026 PSG Diagnostic [facility] Routine Sleep apnea, unspecified type 1 Occurrences starting 04/27/2025 until 04/27/2026 [employer] Work Phone: Comment on above: 1 Occurrences starti ng 04/27/2025 until 04/27/2026 Immunizations Immunization Date Immunization Notes Care Provider Aneesh moore 11-11-2023 influenza virus vaccine, unspecified formulation Nannette Perez BUSINESS DEVELOPMENT COORDINATOR-DRIVER'S EDUCATION INSTRUCTOR Work Phone: [facility] Payers Date Payer Category Payer Medicaid HMO [id number] 1978 Unknown [id number] 2.16.8 [id number] 1978 Unknown [id number] 2.16.8 [id number] 1978 Unknown [id number] 2.16.8 [id number] 1978 Unknown [id number] 2.16.8 [id number] 1978 Unknown [id number] 2.16.84 [id number] 1978 Unknown [id number] 2.16.84 [id number] 1978 Unknown [id number] 2.16.84 [id number] 1978 Unknown [id number] 2.16.84 0.1.157568.3.579.2.593 1978 Unknown [id number] 2.16.84 0.1.049705.3.579.2.593 1978 Unknown [id number] 2.16.84 0.1.730930.3.579.2.593 1978 Unknown [id number] 2.16.84 [id number] 1978 Unknown [id number] 2.16.84 0.1.706135.3.579.2.593 1978 Unknown [id number] 2.16. [id number] 1978 Unknown [id number] 2.16. [id number] 1959 Unknown [id number] Social History Date Type Detail Facility Start: 07-02-2022 End: 04-27-2025 Tobacco smoking status Ex-smoker (finding) [facility] Tobacco smoking status Smokeless tobacco user within last 30 days [facility] Start: 02-03-2021 End: 06-08-2025 Sex Assigned At Male [facility] Tobacco smoking stat [facility] Tobacco smoking consumption unknown [facility] Start: 02-03-2021 End: 06-08-2025 History of Social function [facility] Start: 1980 Sex assigned at Not on file P [facility] Start: 06-01-2015 Sex Male (finding) [facility] Start: 10-27-1994 End: 10-27-2013 History of tobacco use Current smoker [facility] Start: 10-27-1994 End: 10-27-2013 History of tobacco use Cigarette Smoker [facility] Start: 04-27-2025 Tobacco use and exposure Former smokeless tobacco user [facility] History of tobacco use Chews Tobacco [facility] Start: 04-27-2025 End: 06-08-2025 Alcoholic beverage intake Lifetime non-drinker (finding) [facility] Functional Status Date Assessment Result Facility 07-02-2022 Functional Status N/A [facility] Clinical Notes 04-03-2022 to 06-08-2025 Lidia Teixeira MD - 06/08/2025 10:30 AM EDTTelephone Encounter - Ignacia Ocasio CMA - 06/07/2025 3:25 PM EDTTelephone Encounter - Ignacia Ocasio CMA - 06/07/2025 3:25 PM EDTPatient Instructions Note Date & Type Note Facility 06-08-2025 History of Present illness Narrative Jitendra Servin Date of visit: 06/08/2025 Date of : 1980 Age: 44 y.o. Patient Active Problem List Diagnosis Bipolar disorder, unspecified ([facility]) No Known Allergies Current Outpatient Medications Medication [...] Chief Complaint Patient presents with New Patient CSR REFERRAL ZEUS BUCK CARDIAC ENLARGEMENT, [facility] EKG, NO DEVICE, COVID 2023, SCHED W/PT History of Present Illness 44-year-old male is here for initial evaluation with report of enlarged heart. He is not sure why he was referred to me. He was recently admitted to [facility] for cannabinoid hyperemesis syndrome severe dehydration with MACKENZIE. Did have a CT abdomen a chest x-ray with report of cardiomegaly He denies any cardiac symptoms no chest pain shortness of breath palpitations lower extremity edema syncope or presyncope He started smoking at the age of [age] years old total of 30 years of smoking he did smoke 1-2 packs a day until 10 years ago than his switch to vaping both tobacco and marijuana His EKG demonstrated normal sinus rhythm and incomplete right bundle block branch His blood pressure is elevated denies diagnosis of essential hypertension Past Medical History: Diagnosis Date Bipolar disorder, unspecified ([facility]) No data recorded No data recorded No [...] kg (212 lb) SpO2 95% BMI 28.75 kg/m Orders Placed or Reconciled This Encounter Medications [...] without any anginal symptoms otherwise - LIDIA TEIXEIRA MD 06/08/25 10:54 AM ] TODAYS ORDERS No orders of the defined types were placed in this encounter. FOLLOW UP No follow-ups on file. PCP: NUBIA Florian Referring Physician: Zeus Buck MD [address] [place] [address] documented in this encounter [facility] 06-07-2025 Miscellaneous Notes Called patient to remind them to bring their most current copy of their medication list with them to their appt. Patient verbalizes understanding. documented in this encounter [facility] 06-07-2025 Telephone encounter Note Called patient to remind them to bring their most current copy of their medication list with them to their appt. Patient verbalizes understanding. [facility] 05-06-2025 Miscellaneous Notes CSR REFERAL ZEUS YE CARDIAC ENLARGEMENT-PHONED PT AND LM ON VM TO CALL OFFICE TO SCHEDULE APPT. documented in this encounter [facility] 05-06-2025 Telephone encounter Note CSR REFERAL ZEUS YE CARDIAC ENLARGEMENT-PHONED PT AND LM ON VM TO CALL OFFICE TO SCHEDULE APPT. [facility] 04-28-2025 Miscellaneous Notes 04/27 Order received 1st call to schedule pt's phone is not accepting messages sent letter PSG Order and 7/2 Kregel notes in epic documented in this encounter [facility] 04-28-2025 Telephone encounter Note 04/27 Order received 1st call to schedule pt's phone is not accepting messages sent letter PSG Order and 04/27 Kregel notes in epic [facility] 04-27-2025 History of Present illness Narrative Images from the original note were not included. Chief Complaint: Jitendra Servin is a 44 y.o. male present for initial visit regarding suspected [facility] Sleep Questionnaire 04/27/2025 11:32 AM EDT - [...] use phone/computer in bed? No Number of nvhqqk-ie-zwi-night awakenings per night? 1 Cause of awakenings [...] hemoptysis. [facility] SLEEPINESS SCALE 04/27/2025 11:00 AM [place] Sleepiness Scale Sitting and Reading 1 Watching [...] Medical History: Diagnosis Date Bipolar disorder, unspecified ([facility]) CURRENT MEDICATIONS Reviewed with patient. Current Outpatient [...] Status: Future Expiration Date: 04/27/2026 Follow Up: [facility] Sleep Medicine to read and follow patient. [...] to stop the activity if sleepiness occurs (thread puller at the next safe opportunity if [...] the upper body and during sleep). CC: [facility] Anival Aviles [facility] Office: [phone] 11:46 AM on 04/27/2025 This note is dictated with the use of M*Modal.Please note that this dictation was completed with computer voice recognition software. Quite often unanticipated grammatical, syntax, homophones, and other interpretive errors are inadvertently transcribed by the computer software. Please disregard these errors. Please excuse any errors that have escaped final proofreading. LANDRY Diaz 04/27/25 1146 documented in this encounter [facility] 04-27-2025 Instructions LANDRY Diaz - 04/27/2025 11:00 AM EDT If you re looking for general health and wellness resources, please visit [email or web address]. documented in this encounter [facility] 07-24-2022 Note OPERATIVE NOTE OPERATION DATE: [...] in good condition. CC: Family physician [facility] 07-02-2022 Note Chief Complaint consultation for ABD pain HPI Staff 41 year old male presents on consultation from [facility] ED for abdominal pain. Presented [...] Thompson\Date and Time Signed: 07/02/22 21:30 EDT 04-03-2022 Note [id number] [facility] Evaluation + Plan note No data available for this section [facility] Evaluation note Diagnosis Encounter for screening for other viral diseases [facility] Diagnosis Encounter for screening for cardiovascular disorders [facility] Diagnosis Encounter for general adult medical examination without abnormal findings documented [facility] this encounter [facility]* Diagnosis Encounter for screening for human immunodeficiency virus (HIV) documented in this encounter [facility]* Diagnosis Encounter for screening for other suspected endocrine disorder documented in this encounter [facility]* Diagnosis Fatigue, unspecified type- Primary Sleep apnea, unspecified type Snoring Other dyspnea and respiratory abnormality BMI 28.0-28.9,adult Overweight with body mass index (BMI) of 28 to 28.9 in adult Marijuana use documented [facility] this [facility] Diagnosis Abnormal EKG- Primary Nonspecific abnormal electrocardiogram (ECG) (EKG) Cardiac enlargement Cardiomegaly Elevated blood pressure reading Elevated blood pressure reading without diagnosis of hypertension [facility] No data available for this section [facility] InstructionsNot on filedocumented in this encounter [facility] on filedocumented in this encounter [facility]ructions[facility] on filedocumented in this encounter [facility] System[facility]ructionsNot on filedocumented in this encounter [facility] System[facility]ructionsNot on filedocumented in this encounter [facility] No data available for this section [facility] Summary Purpose Family History No Family History Records FoundNo Family History Records FoundNo Family History Records FoundNo Family History Records Found Advance Directives No Advanced Directives Records FoundNo Advanced Directives Records FoundNo Advanced Directives Records FoundNo Advanced Directives Records Found Additional Source Comments Care Team (unrecognized sect ion and content) All Round Logger Relationship Specialty Start Date End Date No [place] [address] PCP - General Family Medicine 02/03/21 All Round Logger Relationship Specialty Start Date End Date Services, [facility] [address] [place] PCP - General Family Medicine 04/27/25 All Round Logger Relationship Specialty Start Date End Date Services, [facility] [address] [place] PCP - General Family Medicine 04/27/25 All Round Logger Relationship Specialty Start Date End Date Services, [facility] [address] [place] PCP - General Family Medicine 04/27/25 All Round Logger Relationship Specialty Start Date End Date Services, [facility] [address] PCP - General Family Medicine 04/27/25 All Round Logger Relationship Specialty Start Date End Date Services, [facility] [address] [place] PCP - General Family Medicine 04/27/25 (unrecognized sect ion and content) No Status Records FoundNo Status Records FoundNo Status Records FoundNo Status Records Found INFORMATION SOURCE (unrecogn ized section and content) DATE CREATED AUTHOR 08/07/2022 Kir[facility] DATE CREATED AUTHOR AUTHOR'S ORGANIZ ATION 02/08/2023 [facility] DATE CREATED AUTHOR AUTHOR'S ORGANIZ ATION 04/30/2025 [facility] DATE CREATED AUTHOR AUTHOR'S ORGANIZ ATION 06/10/2025 [facility] Reason for Visit (unrecogniz ed section and content) Reason Comments New Patient No previous sleep st udyNo PAP therapyNo Oral Appliances Specialty Diagnoses / Procedures Referred By Contandres t Referred To Contact Pulmonary Medicine Diagnoses Sleep apnea, unspecified type Nannette Perez, BUSINESS DEVELOPMENT COORDINATOR-DRIVER'S EDUCATION INSTRUCTOR [address] [place] [address] Phone: tel: fax: [facility] [address] [address] Phone: tel: fax: Referral ID Status Reason Start Date Expiration Date Visits Requested Visits Authorized [id number] Pending Review Specialty Services Required 01/27/2025 01/27/2026 1 1 Reason Onset Date Comments Sleep Lab 04/28/2025 PSG Order Reason Comments New Patient CSR REFERRAL ZEUS VALADEZ CARDIAC ENLARGEMENT, [facility] EKG, NO DEVICE, COVID 2023, SCHED W/PT Specialty Diagnoses / Procedures Referred By Hi t Referred To Contact Cardiology Diagnoses Cardiac enlargement Zeus Buck MD [address] [place] [address] Phone: tel: fax: [facility] [address] [place] [address] Phone: tel: fax: Referral ID Status Reason Start Date Expiration Date Visits Requested Visits Authorized [id number] Pending Review Specialty Services Required 05/06/2025 05/06/2026 1 1 FOR RECORDS PERTAINING TO PATIENTS WHO ARE [...] BE BASED ON THE PRIMARY CLINICAL RECORDS. [employer] provides no warranty or guarantee of the accuracy or completeness of information in this document.
[2025-06-15 17:11] LABS: Hematocrit 45.7 % (42.0-54.0); Hemoglobin 15.9 g/dL (14.0-18.0); Immature Granulocytes Abs Auto 0.14 10^3/uL (0.00-0.03); Immature Granulocytes Pct Auto 0.8 % (0.0-0.5); Lymphocytes Absolute Auto 1.0 10^3/uL (1.2-3.8); Mean Corpuscular HGB Conc 34.8 g/dL (29.9-35.2); Mean Corpuscular Hemoglobin 31.1 pg (25.9-34.0); Mean Corpuscular Volume 89.4 fL (80.0-94.0); Platelet Count 539 10^3/uL (150-450); Red Blood Count 5.11 10^6/uL (4.70-6.10); White Blood Count 18.5 10^3/uL (4.0-11.0)
[2025-06-15] MEDS: 0.9 % SODIUM CHLORIDE 1,000 ML 1000 ML IV ×2 (17:31→17:32)
[2025-06-15] MEDS: HALOPERIDOL LACTATE 5 MG/ML VIAL IV (17:32)
[2025-06-15 17:36] LABS: Alanine Aminotransferase 33 U/L (16-63); Albumin Globulin Ratio 1.2; Albumin Level 5.2 g/dL (3.4-5.0); Alkaline Phosphatase 122 U/L (46-116); Anion Gap 22.3; Aspartate Amino Transferase 11 U/L (15-37); Blood Urea Nitrogen 25.0 mg/dL (7.0-18.0); Calcium 11.1 mg/dL (8.5-10.1); Carbon Dioxide 19.7 mmol/L (21.0-32.0); Chloride 108 mmol/L (98-107); Estimated GFR (African America 57 (>=60 mL/min/1.73m^2); Estimated GFR (Non-African Ame 47 (>=60 mL/min/1.73m^2); Globulin 4.2 g/dL; Glucose 163 mg/dL (74-106); Potassium 4.0 mmol/L (3.5-5.1); Sodium 146 mmol/L (136-145); Total Protein 9.4 g/dL (6.4-8.2)
--- NOTE | 2025-06-15 18:02 | CT_ITS ---
The [address] [address] Patient Name: GERALDINE RICCI MRN: [id number] date: 1980 Sex: M Assigned Patient Location: ER Current Patient Location: ER Accession/Order Number: [id number] Exam Date: 06/15/2025 18:27 Report Date: 06/15/2025 18:34 At the request of: YOVANI HUNG Procedure: CT abdomen pelvis wo con CT Abdomen and Pelvis withoutcontrast TECHNIQUE: Axial imaging with 2-D reconstruction. . The CT exam was performed using one or more the following dose reduction techniques: Automated exposure control, adjustment of the MA and/or Kv according to patient size, or use of the iterative reconstruction technique. COMPARISON: 05/01/2025 History: Abdominal cramping. Nausea and vomiting LIMITATIONS: None LOWER THORAX Unremarkable LIVER: Hepatic steatosis GALLBLADDER: No gallbladder abnormality identified. BILE DUCTS: No dilatation SPLEEN: Unremarkable PANCREAS: Unremarkable ADRENAL GLANDS: Unremarkable KIDNEYS:No hydronephrosis. Tiny hypodensities favoring small cyst. Unchanged. AORTA: No abdominal aortic aneurysm identified. RETROPERITONEUM: No significant retroperitoneal abnormalities identified. MESENTERY:Unremarkable STOMACH:Unremarkable SMALL BOWEL: The small bowel loops are nondistended. APPENDIX: The appendix is normal. COLON: Unremarkable URINARY BLADDER: Urinary bladder is unremarkable. REPRODUCTIVE SYSTEM: Reproductive structures are unremarkable. PNEUMOPERITONEUM: None PERITONEAL FLUID:None BONY STRUCTURES: Unremarkable ABDOMINAL WALL: Fat-containing umbilical hernia CT/CT abdomen pelvis wo con IMPRESSION: No acute findings. Impression dictated by: Ed Hugo M.D. 06/15/2025 6:34 PM Dictation Location: [facility] Electronically authenticated by: [id number] Y Date: 06/15/2025 18:34
[2025-06-15] MEDS: DICYCLOMINE HCL 20 MG/2 ML VIAL IM (18:05)
--- NOTE | 2025-06-15 18:47 | ED.ABDPAIN1 ---
HPI - Abdominal Pain General Chief Complaint: Abdominal Pain Stated Complaint: Abdominal Pain Time Seen by Provider: 06/15/25 17:02 Source: patient Mode of arrival: Wheelchair History of Present Illness HPI narrative: 44-year-old male presents emergency room with chief complaint of vomiting. Patient is known to emergency room for cyclic vomiting. He does state that he had smoked marijuana yesterday. Developed nausea vomiting earlier today. He is rocking in his chair complaining of cramping and pain. Patient is not febrile at this time. Patient was admitted previously last month for acute kidney injury status post hyperemesis syndrome. Related Data Home Medications ?Medication ?Instructions ?Recorded ?Confirmed olanzapine 2.5 mg tablet 2.5 mg PO BEDTIME 07/16/23 06/15/25 fluoxetine 60 mg tablet 60 mg PO QPM 11/04/23 06/15/25 omeprazole 20 mg capsule,delayed 20 mg PO DAILY 07/16/24 06/15/25 release dicyclomine 20 mg tablet mg 06/15/25 ondansetron 4 mg disintegrating mg 06/15/25 tablet Allergies Allergy/AdvReac Type Severity Reaction Status Date / Time No Known Drug Allergies Allergy Verified 06/15/25 16:52 Review of Systems ROS Status of ROS 10 or more systems reviewed and unremarkable except as noted in history and below [facility] Medical History (Updated 06/15/25 @ 19:35 by Maria Del Rosario Caraballo) Hypovolemia dehydration ?E86.1 - Hypovolemia (ICD-10) Cannabis hyperemesis syndrome concurrent with and due to cannabis abuse ?F12.188 - Cannabis abuse with other cannabis-induced disorder (ICD-10) Benign essential HTN ?I10 - Essential (primary) hypertension (ICD-10) Bipolar 1 disorder ?F31.9 - Bipolar disorder, unspecified (ICD-10) Emphysema of lung ?J43.9 - Emphysema, unspecified (ICD-10) Marijuana abuse, continuous ?F12.10 - Cannabis abuse, uncomplicated (ICD-10) Hyperbilirubinemia ?E80.6 - Other disorders of bilirubin metabolism (ICD-10) Elevated liver enzymes ?R74.8 - Abnormal levels of other serum enzymes (ICD-10) Abdominal pain ?R10.9 - Unspecified abdominal pain (ICD-10) Abdominal pain ?R10.9 - Unspecified abdominal pain (ICD-10) Pneumonia ?J18.9 - Pneumonia, unspecified organism (ICD-10) Anxiety ?F41.9 - Anxiety disorder, unspecified (ICD-10) Family History (Updated 02/06/24 @ 04:58 by Kelsie Fitch RN) Father Family history of CHF (congestive heart failure) Family history of hypertension Family history of myocardial infarction Family history of stroke Grandfather Family history of cancer Family history of myocardial infarction Family history of stroke Uncle Family history of cancer Grandmother Family history of diabetes mellitus Social History Within the past year, how often did you have a drink containing alcohol: never Within the past year, how often did you have six or more drinks on one occasion: never Score interpretation: A score less than 4 is consistent with normal alcohol consumption. Smoking status: Current every day smoker Do you use any of these nicotine containing products: vaping products Non-prescribed substance use: cannabis (any form) Highest level of school completed/degree received: high school graduate Are you now , , , , never or living with a partner: In a typical week, how many times do you talk on the telephone with family, friends, or neighbors: 3 or more times per week How often do you get together with friends or relatives: 3 or more times per week How often do you attend oriental orthodox or rastafari services: never Little interest or pleasure in doing things: not at all Feeling down, depressed, or hopeless: not at all Feel stressed/tense/nervous/anxious/difficulty sleeping: to some extent Do you think of yourself as: straight/heterosexual Gender Identity: male Exam Narrative Exam Narrative: All Systems are negative except as noted/marked.All systems reviewed and otherwise negative Nurses note and vital signs reviewed and patient is not hypoxic. General: The patient appears uncomfortable,no acute distress. Patient is resting comfortably on cart. Skin: Warm, dry, no pallor noted. There is no rash noted. Head: Normocephalic, atraumatic Eye: Normal conjunctiva, no drainage, EOMI. PERRL Ears, Nose, Mouth, and Throat: oral mucosa is moist. Nares patent. Mouth without vesicles. Ear canals patent. Tm's without Erythema Cardiovascular: Regular Rate and Rhythm Respiratory: Patient is in no distress, no accessory muscle use, lungs are clear to auscultation, no wheezing, rales or rhonchi Back: non-tender, no CVA tenderness bilaterally to percussion. GI: Normal bowel sounds, no tenderness to palpation, no masses appreciated. No rebound, guarding, or rigidity noted. Musculoskeletal: The patient has no evidence of calf tenderness, no pitting edema, symmetrical pulses noted bilaterally Neurological: A&O x4, normal speech Psychiatric: Cooperative Constitutional Vital Signs, click to edit/add: Last Vital Signs Temp 99.3 F 06/15/25 19:11 Pulse 94 H 06/15/25 19:11 Resp 18 06/15/25 19:11 BP 175/101 H 06/15/25 19:11 Pulse Ox 98 06/15/25 19:11 O2 Del Method Room Air 06/15/25 16:53 Course Vital Signs Vital signs: Vital Signs Temperature 98.9 F 06/15/25 16:53 Pulse Rate 97 H 06/15/25 16:53 Respiratory Rate 18 06/15/25 16:53 Blood Pressure 153/112 H 06/15/25 16:53 Pulse Oximetry 97 06/15/25 16:53 Oxygen Delivery Method Room Air 06/15/25 16:53 Temperature 99.3 F 06/15/25 19:11 Pulse Rate 94 H 06/15/25 19:11 Respiratory Rate 18 06/15/25 19:11 Blood Pressure 175/101 H 06/15/25 19:11 Pulse Oximetry 98 06/15/25 19:11 Oxygen Delivery Method Room Air 06/15/25 16:53 MDM - Abdominal Pain MDM Narrative Medical decision making narrative: 44-year-old male presents emergency room with chief complaint of vomiting. Patient is known to emergency room for cyclic vomiting. He does state that he had smoked marijuana yesterday. Developed nausea vomiting earlier today. He is rocking in his chair complaining of cramping and pain. Patient is not febrile at this time. Patient was admitted previously last month for acute kidney injury status post hyperemesis syndrome. Upon arrival to the emergency room, IV was established and patient was given Zofran and and fluids. CBC and CMP were ordered. Patient did have an elevated white count of 18,000's and subsequently CT scan of the abdomen pelvis was ordered. CT abdomen pelvis was negative. Patient has been admitted recently for a acute kidney injury due to hyperemesis syndrome. Sodium is 146 potassium is 4.0 is 108, BUN is 25 creatinine was 1.59. After second liter of fluids was given patient was given a popsicle and tolerated popsicle well. Patient had been medicated here with Zofran and Bentyl as well as a repeat Zofran dose and he states his symptoms have improved. Upon discharge patient was noted to have an elevated blood pressure he was offered to stay and given blood pressure medications he did not want to stay patient states he wanted to go home his was here. Patient then signed out AGAINST MEDICAL ADVICE. Patient be discharged home I believe his symptoms were due to hyperemesis. We again discussed the use of marijuana and cyclical vomiting. Differential Diagnosis Differential diagnosis: Likely abdominal pain and other (Acute kidney injury, dehydration, cyclic vomiting) Medical Records Attestation: I reviewed the patient's medical records. Lab Data Attestation: I reviewed the patient's lab results. Labs: Lab Results 06/15/25 Range/Units 17:00 WBC 18.5 H (4.0-11.0) 10^3/uL RBC 5.11 (4.70-6.10) 10^6/uL Hgb 15.9 (14.0-18.0) g/dL Hct 45.7 (42.0-54.0) % MCV 89.4 (80.0-94.0) fL MCH 31.1 (25.9-34.0) pg MCHC 34.8 (29.9-35.2) g/dL RDW 12.8 (11.0-15.0) % Plt Count 539 H (150-450) 10^3/uL MPV 10.4 (9.5-13.5) fL Neut % (Auto) 89.9 H (43.0-75.0) % Lymph % (Auto) 5.4 L (20.5-60.0) % [place] % (Auto) 3.5 (1.7-12.0) % Eos % (Auto) 0.0 L (0.9-7.0) % Baso % (Auto) 0.4 (0.2-2.0) % Neut # (Auto) 16.6 H (1.4-6.5) 10^3/uL Lymph # (Auto) 1.0 L (1.2-3.8) 10^3/uL [place] # (Auto) 0.6 (0.3-0.8) 10^3/uL Eos # (Auto) 0.0 (0.0-0.7) 10^3/uL Baso # (Auto) 0.1 (0.0-0.1) 10^3/uL Abs Immat Gran (auto) 0.14 H (0.00-0.03) 10^3/uL Imm/Tot Granulo (auto) 0.8 H (0.0-0.5) % Sodium 146 H (136-145) mmol/L Potassium 4.0 (3.5-5.1) mmol/L Chloride 108 H (98-107) mmol/L Carbon Dioxide 19.7 L (21.0-32.0) mmol/L Anion Gap 22.3 BUN 25.0 H (7.0-18.0) mg/dL Creatinine 1.59 H (0.70-1.30) mg/dL Est GFR ( Amer) 57 L (>=60 mL/min/1.73m^2) Est GFR (Non-Af Amer) 47 L (>=60 mL/min/1.73m^2) BUN/Creatinine Ratio 15.7 Glucose 163 H (74-106) mg/dL Calcium 11.1 H (8.5-10.1) mg/dL Total Bilirubin 2.0 H (0.2-1.0) mg/dL AST 11 L (15-37) U/L ALT 33 (16-63) U/L Alkaline Phosphatase 122 H (46-116) U/L Troponin I High Sens 13.0 (4.0-76.1) pg/mL Total Protein 9.4 H (6.4-8.2) g/dL Albumin 5.2 H (3.4-5.0) g/dL Globulin 4.2 g/dL Albumin/Globulin Ratio 1.[address] scan - abdomen: Radiologist's impression: ITS Impressions Abdomen/Pelvis CT 06/15/25 18:02 IMPRESSION: No acute findings. Impression dictated by: Ed Hugo M.D. 06/15/2025 6:34 PM Dictation Location: [place] [address] Electronically authenticated by: [id number] Y Date: 06/15/2025 18:34 Discharge Plan Discharge Chief Complaint: Abdominal Pain Clinical Impression: Acute kidney injury, Cannabinoid hyperemesis syndrome, Hypertension Patient Disposition: Home, Self-Care Time of Disposition Decision: 19:01 Condition: Good Prescriptions / Home Meds: No Action olanzapine 2.5 mg tablet 2.5 mg PO BEDTIME dicyclomine 20 mg tablet ondansetron 4 mg tablet,disintegrating fluoxetine 60 mg tablet 60 mg PO QPM omeprazole 20 mg capsule,delayed release(DR/EC) 20 mg PO DAILY Print Language: B[place] Instructions: Acute Kidney Injury (DC), Cannabis Use Disorder (ED) Referrals: [facility] [Primary Care Provider, Unknown] - 1 week Discharge Date/Time: 06/15/25 19:32
[2025-06-15 19:11] VITALS: BP 175/101; PULSE 94; TEMP 37.4; O2SAT 98
--- NOTE | 2025-06-15 19:31 | PC.NURSE ---
this patient signed out AMA
== END 2025-06-15 19:32 | disposition home or self-care (01) ==
PROVIDERS: Physician Assistant; Emergency Provider Emergency Medicine
DX: N17.9 Acute kidney failure, unspecified (principal); R11.10 Vomiting, unspecified; F12.90 Cannabis use, unspecified, uncomplicated; I10 Essential (primary) hypertension; F17.290 Nicotine dependence, other tobacco product, uncomplicated
CPT/HCPCS: 36415; 74176; 80053; 81001; 84484; 85025; 96361; 96372; 96374; 96375; 96376; 99285; J0500; J1630; J2405